=== PATIENT | female | born 1975 | race American Indian/Alaskan Native ===

== ENCOUNTER 2017-03-26 00:30 | Emergency (ER) | payer OTHER ==
[2017-03-26 02:12] LABS: BASO # 0.1 K/uL (0.0-0.2); BASO % 1.5 % (0.0-2.0); EOS # 0.1 K/uL (0.0-0.7); EOS % 1.9 % (0.0-4.0); HEMATOCRIT 37.1 % (34.0-47.0); LYMPH # 1.1 K/uL (1.0-4.3); LYMPH % 20.5 % (20.0-40.0); MEAN CELL VOLUME 89.9 fL (81.0-99.0); MEAN CORPUSCULAR HEMOGLOBIN 28.1 pg (27.0-31.0); MEAN CORPUSCULAR HGB CONC 31.2 g/dL (33.0-37.0); MEAN PLATELET VOLUME 10.2 fL (7.2-11.7); MONO # 0.7 K/uL (0.0-0.8); MONO % 12.6 % (0.0-10.0); NRBC % 0.2 % (0.0-2.0); RED CELL DISTRIBUTION WIDTH 17.8 % (11.5-14.5); WHITE BLOOD COUNT 5.4 K/uL (4.8-10.8)
[2017-03-26] MEDS ORDERED: Morphine 4 MG/ML VIAL IV ONE (02:23)
[2017-03-26 02:25] LABS: BILIRUBIN,TOTAL 3.2 mg/dL (0.2-1.3); CALCIUM 8.1 mg/dl (8.6-10.4); TOTAL PROTEIN 8.9 g/dL (6.3-8.3)
[2017-03-26 02:26] LABS: ALB/GLOB RATIO 0.7 (1.0-2.1)
[2017-03-26 02:27] LABS: POTASSIUM 4.8 mmol/L (3.6-5.2)
--- NOTE | 2017-03-26 04:42 | C.PDOC ---
History Of Present Illness 41 y/o female, PMHx including ESRD, presents to ED with complaints of several episodes of vomiting and abdominal discomfort since finishing dialysis earlier today. Patient denies fever, chills, chest pain, SOB, diarrhea, extremity swelling, or other associated symptoms. Time Seen by Provider: 03/26/17 01:35 Chief Complaint (Nursing): Abdominal Pain History Per: Patient History/Exam Limitations: no limitations Onset/Duration Of Symptoms: Days Current Symptoms Are (Timing): Still Present Severity: Mild Location Of Pain/Discomfort: Epigastric Radiation Of Pain To:: None Quality Of Discomfort: "Pain" Associated Symptoms: Nausea, Vomiting. denies: Fever, Chills, Diarrhea, Back Pain, Chest Pain, Urinary Symptoms Recent travel outside of the [place]: No Past Medical History Reviewed: Historical Data, Nursing Documentation, Vital Signs Vital Signs: Last Vital Signs Temp 98.2 F 03/26/17 04:39 Pulse 82 03/26/17 04:39 Resp 18 03/26/17 04:39 BP 116/71 03/26/17 04:39 Pulse Ox 97 03/26/17 04:43 - Medical History PMH: Diabetes (IDDM), HTN, Hypercholesterolemia, End Stage Renal Disease, Chronic Kidney Disease - [facility] Procedures ESOPHAGOGASTRODUODENOSCOPY [EGD] W/CLOSED BIOPSY (06/18/15) EXCISION OF STOMACH, ENDO, DIAGN (09/02/16) OTHER SKIN & SUBQ I D (08/07/15) PERFORMANCE OF URINARY FILTRATION, MULTIPLE (09/02/16) ULTRASONOGRAPHY OF LEFT UPPER EXTREMITY VEINS (09/02/16) Family History: States: Unknown Family Hx - Social History Hx Tobacco Use: No Hx Alcohol Use: No Hx Substance Use: No - Immunization History Hx Tetanus Toxoid Vaccination: No Hx Influenza Vaccination: No Hx Pneumococcal Vaccination: No Review Of Systems Except As Marked, All Systems Reviewed And Found Negative. Constitutional: Negative for: Fever, Chills Cardiovascular: Negative for: Chest Pain, Palpitations Respiratory: Negative for: Cough, Shortness of Breath, Wheezing Gastrointestinal: Positive for: Nausea, Vomiting, Abdominal Pain. Negative for : Diarrhea Skin: Negative for: Rash Neurological: Negative for: Headache, Dizziness Physical Exam - Physical Exam Appears: Non-toxic, No Acute Distress Skin: Warm, Dry Head: Atraumatic, Normacephalic Oral Mucosa: Moist Chest: Symmetrical Cardiovascular: Rhythm Regular Respiratory: Normal Breath Sounds, No Rales, No Rhonchi, No Wheezing Gastrointestinal/Abdominal: Soft, Tenderness (minimal, epigastric), No Distention, No Guarding, No Rebound Back: Normal Inspection Extremity: Normal ROM, Capillary Refill (< 2 sec.) Neurological/Psych: Oriented x3, Normal Speech, Normal Cognition ED Course And Treatment - Laboratory Results Result Diagrams: 03/26/17 02:08 03/26/17 02:08 O2 Sat by Pulse Oximetry: 97 (RA) Pulse Ox Interpretation: Normal Progress Note: Patient received Zofran ODT at triage. Patient notes she still feel nauseous. Patient presents hypertensive, states she was unable to keep her BP medications down. Given IV Zofran, Pepcid, and morphine. After attempting to take fluids, she states that she is still nauseous. Reglan IV given. Patient declines to take blood pressure medication in the ER, stating she will resume her BP med dose at home. 6 AM- Pt is in NAD, VSS, BP has improved, tolerated PO in ED, Abdomen is soft NT Disposition - Disposition Referrals: Rafita Martinez DO [Primary Care Provider] - Disposition: HOME/ ROUTINE Disposition Time: 05:31 Condition: STABLE Additional Instructions: Clear liquid diet Follow up with PMD Return to ER if worse Prescriptions: Ondansetron ODT [Zofran ODT] 1 - 2 odt PO BID PRN #6 odt PRN Reason: Nausea/Vomiting - Clinical Impression Clinical Impression: Vomiting, ESRD (end stage renal disease) on dialysis, Gastritis - PA / PHYSICAL THERAPY TECHNICIAN / Resident Statement / has reviewed & agrees with the documentation as recorded. - Scribe Statement The provider has reviewed the documentation as recorded by the Tawanda Hooks Provider Scribe Attestation: All medical record entries made by the Tawanda were at my direction and personally dictated by me. I have reviewed the chart and agree that the record accurately reflects my personal performance of the history, physical exam, medical decision making, and the department course for this patient. I have also personally directed, reviewed, and agree with the discharge instructions and disposition.
[2017-03-26 05:54] VITALS: BP 164/96; PULSE 86; RESP 16; TEMP 97.8; O2SAT 99
== END 2017-03-26 05:54 | disposition home or self-care (01) ==
LOC: C.ER 00:30 → SUPCPDRO 00:30 → C.ER 05:54
DX: K29.70 Gastritis, unspecified, without bleeding (principal); R11.10 Vomiting, unspecified; I12.0 Hypertensive chronic kidney disease with stage 5 chronic kidney disease or end stage renal disease; N18.6 End stage renal disease; Z99.2 Dependence on renal dialysis
CPT/HCPCS: 80053; 85025; 96374; 96375; 99285; J2270; J2405; J2765

== ENCOUNTER 2017-12-18 12:20 | Inpatient (IN) | payer OTHER ==
--- NOTE | 2017-12-18 14:03 | C.PDOC ---
History Of Present Illness Maggi Anthony is a 42 year old female, with a past medical history of HTN, diabetes, and renal disease, who presents to the emergency department complaining of productive cough onset for 2-3 months and shortness of breath, and chest pain for a couple of days. Patient also reports increasing swelling on legs. Patient states the shortness of breath is worst with exertion, and the chest pain worsens with cough. Patient is currently on dialysis Saturday, Saturday, and Saturday. She was on dialysis this morning. She denies any recent sick contacts, fever, chills, palpitations, abdominal pain, nausea, vomit, diarrhea, constipation, urinary symptoms or calf pain. No further medical complaints. PMD: Rafita Martinez Seen by Provider: 12/18/17 13:28 Chief Complaint (Nursing): Shortness Of Breath History Per: Patient History/Exam Limitations: no limitations Onset/Duration Of Symptoms: Days (x2-3 months) Current Symptoms Are (Timing): Still Present Exacerbating Factor(s): Exertion Associated Symptoms: Chest Pain, Productive Cough, Ankle/Leg Swelling. denies: Fever, Chills, Leg/Calf Pain, Other (abdominal pain, nausea, vomiting, diarrhea. ) Past Medical History Reviewed: Historical Data, Nursing Documentation, Vital Signs Vital Signs: Last Vital Signs Temp 97.4 F L 12/18/17 12:33 Pulse 94 H 12/18/17 14:55 Resp 18 12/18/17 14:55 BP 176/115 H 12/18/17 14:55 Pulse Ox 100 12/18/17 14:55 - Medical History PMH: Diabetes (IDDM), HTN, Hypercholesterolemia, End Stage Renal Disease, Chronic Kidney Disease Denies: Hyperthyroidism Surgical History: Other Surgeries: Graft placement - [facility] Procedures ESOPHAGOGASTRODUODENOSCOPY [EGD] W/CLOSED BIOPSY (06/18/15) EXCISION OF STOMACH, ENDO, DIAGN (09/02/16) OTHER SKIN & SUBQ I D (08/07/15) PERFORMANCE OF URINARY FILTRATION, MULTIPLE (09/02/16) ULTRASONOGRAPHY OF LEFT UPPER EXTREMITY VEINS (09/02/16) Family History: States: Unknown Family Hx - Social History Hx Tobacco Use: No Hx Alcohol Use: No Hx Substance Use: No - Immunization History Hx Tetanus Toxoid Vaccination: No Hx Influenza Vaccination: No Hx Pneumococcal Vaccination: No Review Of Systems Constitutional: Negative for: Fever, Chills Cardiovascular: Positive for: Chest Pain. Negative for: Palpitations Respiratory: Positive for: Cough (productive), Shortness of Breath, Sputum (non bloody) Gastrointestinal: Negative for: Nausea, Vomiting, Abdominal Pain, Diarrhea, Constipation, Hematochezia Genitourinary: Negative for: Dysuria, Incontinence, Hematuria Musculoskeletal: Negative for: Leg Pain Skin: Positive for: Other (leg swelling) Physical Exam - Physical Exam Appears: Other (able to lay flat) Skin: Warm, Dry, No Rash Head: Atraumatic, Normacephalic Eye(s): bilateral: Normal Inspection, PERRL, EOMI Ear(s): Bilateral: Normal Nose: Normal Oral Mucosa: Moist Throat: Normal Neck: Normal ROM, Supple Cardiovascular: Rhythm Regular, No Murmur Respiratory: Decreased Breath Sounds (markedly diminished to most of right lung. ), No Rales, No Rhonchi, Wheezing (diffused expiratory ) Gastrointestinal/Abdominal: Normal Exam, Soft, No Tenderness, No Guarding, No Rebound Back: Normal Inspection, No CVA Tenderness, No Vertebral Tenderness Extremity: Normal ROM, No Pedal Edema, No Calf Tenderness, No Deformity, Swelling (mild to legs), Other (distal pulses normal) Neurological/Psych: Oriented x3 (alert) ED Course And Treatment - Laboratory Results Result Diagrams: 12/18/17 14:25 12/18/17 14:25 Lab Interpretation: Abnormal (glucose 543, K+ 3.7, BUN 22, Cr 3.7) ECG: Interpreted By Ca ECG Rhythm: Sinus Rhythm (with left posterior block) ECG Interpretation: No Acute Changes O2 Sat by Pulse Oximetry: 100 (RA) Pulse Ox Interpretation: Normal - Radiology CXR: Interpreted by Ca CXR Interpretation: Yes: Other (large right pleural effusion.) Reevaluation Time: 15:22 Reassessment Condition: Unchanged - Physician Consult Information Time Consulting Physician Contacted: 15:22 Physician Contacted: Bertha Walker Outcome Of Conversation: He will accept patient onto his service for Dr Martinez. Patient to have evaluation for large pleural effusion and shortness on breath. Medical Decision Making Medical Decision Making: Initial Impression: Initial Plan: --EKG --CMP --Magnesium --CBC w/ differential --Chest one view [RAD] --Influenza A B --reevaluation 14:22 Chest X-Ray FINDINGS: LUNGS: Pulmonary vascular congestion. PLEURA: Large right pleural effusion. No appreciable pneumothorax. CARDIOVASCULAR: Cardiomediastinal silhouette stably prominent. OSSEOUS STRUCTURES: No significant abnormalities. VISUALIZED UPPER ABDOMEN: Normal. OTHER FINDINGS: Right internal jugular access tunneled hemodialysis catheter no longer present. IMPRESSION: Pulmonary vascular congestion and large right pleural effusion. Disposition - Disposition Disposition: HOSPITALIZED Disposition Time: 15:23 Condition: FAIR - POA Present On Arrival: Poor Glycemic Control - Clinical Impression Clinical Impression: ESRD (end stage renal disease) on dialysis, Pleural effusion on right, Uncontrolled diabetes mellitus - Scribe Statement Kyle Wilkes Provider Attestation: All medical record entries made by the Scribe were at my direction and personally dictated by me. I have reviewed the chart and agree that the record accurately reflects my personal performance of the history, physical exam, medical decision making, and the department course for this patient. I have also personally directed, reviewed, and agree with the discharge instructions and disposition.
--- NOTE | 2017-12-18 14:24 | RAD ---
PROCEDURE: CHEST RADIOGRAPH, 1 VIEW HISTORY: SOB COMPARISON: Chest radiograph dated 09/02/2016. FINDINGS: LUNGS: Pulmonary vascular congestion. PLEURA: Large right pleural effusion. No appreciable pneumothorax. CARDIOVASCULAR: Cardiomediastinal silhouette stably prominent. OSSEOUS STRUCTURES: No significant abnormalities. VISUALIZED UPPER ABDOMEN: Normal. OTHER FINDINGS: Right internal jugular access tunneled hemodialysis catheter no longer present. IMPRESSION: Pulmonary vascular congestion and large right pleural effusion.
[2017-12-18 14:30] LABS: BASO # 0.1 K/uL (0.0-0.2); BASO % 1.2 % (0.0-2.0); EOS # 0.3 K/uL (0.0-0.7); EOS % 5.5 % (0.0-4.0); HEMOGLOBIN 12.5 g/dL (11.0-16.0); LYMPH # 1.2 K/uL (1.0-4.3); LYMPH % 20.6 % (20.0-40.0); MEAN CELL VOLUME 87.8 fL (81.0-99.0); MEAN CORPUSCULAR HEMOGLOBIN 28.9 pg (27.0-31.0); MEAN PLATELET VOLUME 10.7 fL (7.2-11.7); MONO # 0.4 K/uL (0.0-0.8); MONO % 6.8 % (0.0-10.0); NEUT # 3.7 K/uL (1.8-7.0); NEUT % 65.9 % (50.0-75.0); RBC 4.31 Mil/uL (3.80-5.20); RED CELL DISTRIBUTION WIDTH 15.1 % (11.5-14.5); WHITE BLOOD COUNT 5.6 K/uL (4.8-10.8)
[2017-12-18] MEDS ORDERED: (Novolin R) Insulin Human Regular 100 units/ml vial IV ONE (14:49)
[2017-12-18] MEDS ORDERED: (Novolin R) Insulin Human Regular 100 units/ml vial ONE ×2 (14:53→21:02)
[2017-12-18 14:56] LABS: ALB/GLOB RATIO 0.7 (1.0-2.1); MAGNESIUM 1.9 mg/dL (1.6-2.3)
[2017-12-18] MEDS ORDERED: CHLORZOXAZONE 750 MG PO PRN ×2 (20:08→23:37)
[2017-12-18] MEDS: Oxycodone/Acetaminophen 5/325 mg Tab PO PRN (20:25)
[2017-12-18] MEDS ORDERED: Oxycodone/Acetaminophen 5/325 mg Tab ONE (20:26)
[2017-12-18] MEDS: (Novolog) Insulin Aspart, Recombinant 100 u/ml 10 ml vial SC SCH (21:01)
[2017-12-18] MEDS ORDERED: FORMOTEROL IH SCH (22:00)
[2017-12-18] MEDS ORDERED: ARO IH SCH (22:00)
[2017-12-18] MEDS ORDERED: MOMETASONE IH SCH (22:00)
[2017-12-19] MEDS ORDERED: (Novolog) Insulin Aspart, Recombinant 100 u/ml 10 ml vial SC ONE (00:46)
[2017-12-19] MEDS ORDERED: (Novolog) Insulin Aspart, Recombinant 100 u/ml 10 ml vial ONE (00:54)
[2017-12-19] MEDS: (Novolog) Insulin Aspart, Recombinant 100 u/ml 10 ml vial SC SCH ×4 (08:03→21:43)
[2017-12-19] MEDS ORDERED: TRAMADOL HCL 200 MG PO SCH ×2 (10:00)
[2017-12-19] MEDS ORDERED: MILNACIPRAN HCL 50 MG PO SCH ×2 (10:00)
[2017-12-19] MEDS ORDERED: VIT C PO SCH ×2 (10:00)
[2017-12-19] MEDS ORDERED: INSULIN GLARGINE HUM REC ANLOG 70 UNIT SQ SCH ×2 (10:00)
[2017-12-19] MEDS ORDERED: [UNRECOGNIZED DRUG - OTHER] PO SCH ×2 (10:00)
[2017-12-19] MEDS ORDERED: Home Med 1 UNIT (Atorvastatin [Lipitor] 40 MG) PO SCH (10:00)
[2017-12-19] MEDS ORDERED: Tiotropium 18 mcg Cap For Inhalation IH SCH (10:00)
[2017-12-19] MEDS ORDERED: Fluticasone Nasal 50 mcg/Spray NS SCH (10:00)
[2017-12-19] MEDS ORDERED: MOMETASONE IH SCH (10:00)
[2017-12-19] MEDS ORDERED: INSULIN GLULISINE 15 UNIT IJ SCH ×2 (10:00)
[2017-12-19] MEDS ORDERED: FORMOTEROL IH SCH (10:00)
[2017-12-19] MEDS ORDERED: IRON PO SCH ×2 (10:00)
[2017-12-19] MEDS ORDERED: D3 PO SCH ×2 (10:00)
[2017-12-19] MEDS ORDERED: B12 PO SCH ×2 (10:00)
[2017-12-19] MEDS ORDERED: Oxybutynin XL 10 mg Tab PO SCH (10:00)
[2017-12-19] MEDS ORDERED: OLOPATADINE HCL OP SCH ×2 (10:00)
[2017-12-19] MEDS ORDERED: [UNRECOGNIZED DRUG - OTHER] SQ SCH ×2 (10:00)
[2017-12-19] MEDS ORDERED: FOLATE PO SCH ×2 (10:00)
[2017-12-19] MEDS ORDERED: BECLOMETHASONE DIPROPIONATE 0.08 MG IH SCH ×2 (10:00)
[2017-12-19] MEDS ORDERED: RAMELTEON 8 MG PO SCH ×2 (10:00)
[2017-12-19] MEDS ORDERED: B6 PO SCH ×2 (10:00)
[2017-12-19] MEDS ORDERED: ARO IH SCH (10:00)
[2017-12-19] MEDS ORDERED: Clotrimazole/Betamethasone Cream(15 gm) EXT SCH (10:00)
[2017-12-19] MEDS: Pantoprazole 40 mg EC Tab PO SCH (10:35)
[2017-12-19 14:37] LABS: INR 1.2; PROTHROMBIN TIME 13.5 SECONDS (9.7-12.2)
--- NOTE | 2017-12-19 15:48 | PCM.SURG1 ---
Surgeon's Initial Post Op Note - Surgeon's Notes Surgeon: Cristiano Bradford MD Health Care Law Specialist: NONE Type of Anesthesia: Local Pre-Operative Diagnosis: Pleural effusion Operative Findings: US showed large right effusion Post-Operative Diagnosis: Pleural effusion Operation Performed: US guided right thoracentesis Specimen/Specimens Removed: 1200 cc of ayaan colored fluid Estimated Blood Loss: EBL {In ML}: 0 Blood Products Given: N/A Drains Used: No Drains Post-Op Condition: Fair Date of Surgery/Procedure: 12/19/17 Time of Surgery/Procedure: 15:45
--- NOTE | 2017-12-19 16:48 | RAD ---
HISTORY: Status post right thoracentesis. COMPARISON: 12/18/2017 FINDINGS: LUNGS: Right pleural effusion with inferred compressive atelectasis renoted height now mid right sho thorax. Trace decrease right pleural effusion possible. Underlying concomitant right basal infiltrate not excluded PLEURA: Moderate -large right pleural effusion slightly decreased. . No pneumothorax CARDIOVASCULAR: Cardiomegaly-similar. Pulmonary venous congestion probably slightly decreased OSSEOUS STRUCTURES: Bilateral shoulder arthrosis VISUALIZED UPPER ABDOMEN: Normal. OTHER FINDINGS: None. IMPRESSION: Persistent moderate -large right pleural effusion -slight decrease probable. Associated inferred compressive atelectasis -right lung base Cardiomegaly with pulmonary venous congestion -the latter slightly decreased
--- NOTE | 2017-12-19 18:19 | CP.PCM.HP ---
Past Patient History - Infectious Disease Hx of Infectious Diseases: None - Past Medical History & Family History Past Medical History?: Yes - Past Social History Smoking Status: Never Smoked - CARDIAC Hx Hypercholesterolemia: Yes Hx Hypertension: Yes - PULMONARY Hx Respiratory Disorders: No - NEUROLOGICAL HX Cerebrovascular Accident: Yes (01/2016) - HEENT Hx HEENT Problems: Yes Other/Comment: Wears Eyeglasses - RENAL Hx Chronic Kidney Disease: Yes Hx Dialysis: Yes Type of Dialysis Access: [email or web address] Date of Last Dialysis Treatment: 12/18/17 - ENDOCRINE/METABOLIC Hx Diabetes Mellitus Type 2: Yes - HEMATOLOGICAL/ONCOLOGICAL Hx Blood Disorders: No Hx Blood Transfusions: Yes Hx Blood Transfusion Reaction: No - INTEGUMENTARY Hx Dermatological Problems: No - MUSCULOSKELETAL/RHEUMATOLOGICAL Hx Musculoskeletal Disorders: No Hx Back Pain: Yes Hx Falls: Yes (3 months ago) - GASTROINTESTINAL Hx Gastrointestinal Disorders: No Hx Gastritis: Yes Hx Ulcer: Yes (gastric ulcer) Hx Vomiting: Yes Other/Comment: gastroporesis - GENITOURINARY/GYNECOLOGICAL Hx Genitourinary Disorders: No - PSYCHIATRIC Hx Psychophysiologic Disorder: No Hx Substance Use: No - SURGICAL HISTORY Hx Surgeries: Yes Hx Section: Yes Other/Comment: Insertion Of HD Cath on the R Internal Jugular; left forearm graft for dialysis. - ANESTHESIA Hx Anesthesia: Yes Hx Anesthesia Reactions: No Hx Malignant Hyperthermia: No Meds Allergies/Adverse Reactions: Allergies Allergy/AdvReac Type Severity Reaction Status Date / Time No Known Allergies Allergy Verified 12/18/17 12:40 Results - Vital Signs Recent Vital Signs: Last Vital Signs Temp 97.9 F 12/19/17 15:00 Pulse 102 H 12/19/17 15:26 Resp 20 12/19/17 15:00 BP 159/96 H 12/19/17 15:26 Pulse Ox 97 12/19/17 15:26 - Labs Result Diagrams: 12/18/17 14:25 12/18/17 14:25 Labs: Laboratory Results - last 24 hr 12/18/17 12/18/17 12/19/17 20:57 Unknown 00:41 PT INR POC Glucose (mg/dL) 416 H* 444 H* Influenza Typ A,B (EIA) Negative for flu a/b 12/19/17 12/19/17 12/19/17 02:25 07:18 07:20 PT INR POC Glucose (mg/dL) 291 H 56 L 61 L Influenza Typ A,B (EIA) 12/19/17 12/19/17 12/19/17 07:37 11:06 14:06 PT 13.5 H INR 1.2 POC Glucose (mg/dL) 72 254 H Influenza Typ A,B (EIA) 12/19/17 16:30 PT INR POC Glucose (mg/dL) 303 H Influenza Typ A,B (EIA)
--- NOTE | 2017-12-19 22:21 | CARD ---
APPROVED REPORT EKG Measurement Heart [id number] <Conclusion> Normal sinus rhythm with sinus arrhythmia Left posterior fascicular block Nonspecific ST and T wave abnormality Prolonged QT Abnormal ECG
[2017-12-19] MEDS: Oxycodone/Acetaminophen 5/325 mg Tab PO PRN (23:03)
[2017-12-20] MEDS ORDERED: Tiotropium 18 mcg Cap For Inhalation IH SCH (08:00)
[2017-12-20] MEDS: (Novolog) Insulin Aspart, Recombinant 100 u/ml 10 ml vial SC SCH ×4 (08:30→22:40)
[2017-12-20] MEDS: Fluticasone Nasal 50 mcg/Spray NS SCH (09:00)
[2017-12-20] MEDS: Pantoprazole 40 mg EC Tab PO SCH (09:55)
[2017-12-20] MEDS: Oxycodone/Acetaminophen 5/325 mg Tab PO PRN (10:00)
--- NOTE | 2017-12-20 14:30 | CP.PCM.CON ---
History of Present Illness - History of Present Illness History of Present Illness: Maggi Anthony is a 42 year old female, with a past medical history of HTN, diabetes, and renal disease, who presents to the emergency department complaining of productive cough onset for 2-3 months and shortness of breath, and chest pain for a couple of days. Patient also reports increasing swelling on legs. Patient states the shortness of breath is worst with exertion, and the chest pain worsens with cough. Patient is currently on dialysis Saturday, Saturday, and Saturday. She was on dialysis this morning. She denies any recent sick contacts, fever, chills, palpitations, abdominal pain, nausea, vomit, diarrhea, constipation, urinary symptoms or calf pain. No further medical complaints. s/p thoracentesis- 1200ml fluid removed PMH: ESRD DM2 DIABETIC NEPHROPATHY HTN CHF PSH- LEFT AV FISTULA Review of Systems - Review of Systems All systems: reviewed and no additional remarkable complaints except - Constitutional Constitutional: Fatigue, Lethargy - EENT Eyes: absent: As Per HPI, Blind Spots, Blurred Vision, Change in Vision, Decreased Night Vision, Diplopia, Discharge, Dry Eye, Exophthalmos, Floaters, Irritation, Itchy Eyes, Loss of Peripheral Vision, Pain, Photophobia, Requires Corrective Lenses, Sees Flashes, Spots in Vision, Tunnel Vision, Other Visual Disturbances, Loss of Vision, Other Ears: absent: As Per HPI, Decreased Hearing, Ear Discharge, Ear Pain, Tinnitus, Abnormal Hearing, Disequilibrium, Dizziness, Other Nose/Mouth/Throat: absent: As Per HPI, Epistaxis, Nasal Congestion, Nasal Discharge, Nasal Obstruction, Nasal Trauma, Nose Pain, Post Nasal Drip, Sinus Pain, Sinus Pressure, Bleeding Gums, Change in Voice, Dental Pain, Dry Mouth, Dysphagia, Halitosis, Hoarsness, Lip Swelling, Mouth Lesions, Mouth Pain, Odynophagia, Sore Throat, Throat Swelling, Tongue Swelling, Facial Pain, Neck Pain, Neck Mass, Other - Cardiovascular Cardiovascular: Chest Pain, Dyspnea on Exertion, Leg Edema - Respiratory Respiratory: Cough, Dyspnea - Gastrointestinal Gastrointestinal: Bloating, Early Satiety - Genitourinary Genitourinary: As Per HPI - Musculoskeletal Musculoskeletal: Muscle Cramps, Muscle Weakness, Myalgias - Neurological Neurological: Weakness Past Patient History - Infectious Disease Hx of Infectious Diseases: None - Past Medical History & Family History Past Medical History?: Yes Past Family History: Reviewed and not pertinent - Past Social History Smoking Status: Never Smoked Chewing Tobacco Use: No Cigar Use: No Alcohol: None Drugs: Denies Home Situation {Lives}: With Family - CARDIAC Hx Hypercholesterolemia: Yes Hx Hypertension: Yes - PULMONARY Hx Respiratory Disorders: No - NEUROLOGICAL HX Cerebrovascular Accident: Yes (01/2016) - HEENT Hx HEENT Problems: Yes Other/Comment: Wears Eyeglasses - RENAL Hx Chronic Kidney Disease: Yes Hx Dialysis: Yes Type of Dialysis Access: [email or web address] Date of Last Dialysis Treatment: 12/18/17 - ENDOCRINE/METABOLIC Hx Diabetes Mellitus Type 2: Yes - HEMATOLOGICAL/ONCOLOGICAL Hx Blood Disorders: No Hx Blood Transfusions: Yes Hx Blood Transfusion Reaction: No - INTEGUMENTARY Hx Dermatological Problems: No - MUSCULOSKELETAL/RHEUMATOLOGICAL Hx Musculoskeletal Disorders: No Hx Back Pain: Yes Hx Falls: Yes (3 months ago) - GASTROINTESTINAL Hx Gastrointestinal Disorders: No Hx Gastritis: Yes Hx Ulcer: Yes (gastric ulcer) Hx Vomiting: Yes Other/Comment: gastroporesis - GENITOURINARY/GYNECOLOGICAL Hx Genitourinary Disorders: No - PSYCHIATRIC Hx Psychophysiologic Disorder: No Hx Substance Use: No - SURGICAL HISTORY Hx Surgeries: Yes Hx Section: Yes Other/Comment: Insertion Of HD Cath on the R Internal Jugular; left forearm graft for dialysis. - ANESTHESIA Hx Anesthesia: Yes Hx Anesthesia Reactions: No Hx Malignant Hyperthermia: No Meds Allergies/Adverse Reactions: Allergies Allergy/AdvReac Type Severity Reaction Status Date / Time No Known Allergies Allergy Verified 12/18/17 12:40 - Medications Medications: Current Medications Amlodipine Besylate (Norvasc) 10 mg PO DAILY [facility] Last Admin: 12/20/17 09:55 Dose: 10 mg Benzonatate (Tessalon Perles) 100 mg PO TID PRN PRN Reason: Cough Clonidine HCl (Catapres) 0.1 mg PO TID [facility] Last Admin: 12/20/17 09:55 Dose: 0.1 mg Fluticasone Propionate (Flonase) 1 spr NS RQD [facility] Last Admin: 12/20/17 09:00 Dose: 1 spr Gabapentin (Neurontin) 600 mg PO DAILY [facility] [place] Last Admin: 12/20/17 09:55 Dose: 600 mg Heparin Sodium (Porcine) (Heparin) 5,000 units SC Q8 [facility] Last Admin: 12/20/17 06:17 Dose: 5,000 units Insulin Aspart (Novolog) 0 unit SC ACHS [facility] PRN Reason: Protocol Last Admin: 12/20/17 12:24 Dose: 5 unit Losartan Potassium (Cozaar) 100 mg PO DAILY [facility] Last Admin: 12/20/17 09:55 Dose: 100 mg Oxybutynin Chloride (Ditropan Xl) 5 mg PO DAILY [facility] Last Admin: 12/20/17 09:56 Dose: 5 mg Oxycodone/Acetaminophen (Percocet 5/325 Mg Tab) 1 tab PO Q8H PRN PRN Reason: Pain, moderate (4-7) Stop: 12/21/17 20:09 Last Admin: 12/20/17 10:00 Dose: 1 tab Pantoprazole Sodium (Protonix Ec Tab) 40 mg PO DAILY [facility] Last Admin: 12/20/17 09:55 Dose: 40 mg Pneumococcal Polyvalent Vaccine (Pneumovax 23 Vaccine) 0.5 ml IM .ONCE ONE Stop: 12/21/17 10:01 Rosuvastatin Calcium (Crestor) 20 mg PO HS [facility] Last Admin: 12/19/17 21:40 Dose: 20 mg Sitagliptin Phosphate (Januvia) 25 mg PO DAILY [facility] [place] Last Admin: 12/20/17 09:55 Dose: 25 mg Tiotropium [place] (Spiriva) 18 mcg IH RQD [facility] Physical Exam - Constitutional Appears: In Acute Distress, Chronically Ill - Head Exam Head Exam: ATRAUMATIC, NORMAL INSPECTION - Eye Exam Eye Exam: EOMI, Normal appearance - Neck Exam Neck exam: Positive for: Normal Inspection. Negative for: Tenderness - Respiratory Exam Respiratory Exam: Decreased Breath Sounds, Rales, Respiratory Distress - Cardiovascular Exam Cardiovascular Exam: REGULAR RHYTHM, +S1 - GI/Abdominal Exam GI & Abdominal Exam: Distended, Soft, Tenderness - Extremities Exam Extremities exam: Positive for: pedal edema, tenderness - Neurological Exam Neurological exam: CN II-XII Intact, Oriented x3 - Skin Skin Exam: Dry, Warm Results - Vital Signs Recent Vital Signs: Last Vital Signs Temp 97.4 F L 12/20/17 08:39 Pulse 90 12/20/17 08:39 Resp 20 12/20/17 08:39 BP 146/86 12/20/17 08:39 Pulse Ox 100 12/20/17 08:39 - Labs Result Diagrams: 12/18/17 14:25 12/18/17 14:25 Labs: Laboratory Results - last 24 hr 12/19/17 12/19/17 12/19/17 14:06 16:30 21:02 PT 13.5 H INR 1.2 POC Glucose (mg/dL) 303 H 314 H 12/20/17 07:42 PT INR POC Glucose (mg/dL) 399 H Assessment & Plan (1) CHF (congestive heart failure) Status: Acute (2) ESRD (end stage renal disease) on dialysis Status: Acute (3) Controlled type 2 diabetes mellitus with diabetic nephropathy Status: Acute (4) Diabetic nephropathy Status: Acute (5) Hypertension Status: Chronic - Assessment and Plan (Free Text) Plan: DIALYSIS NOW AND MWF NEEDS CHEMISTRIES
[2017-12-20 15:18] LABS: MEAN CELL VOLUME 87.6 fL (81.0-99.0); MEAN CORPUSCULAR HEMOGLOBIN 28.8 pg (27.0-31.0); MEAN CORPUSCULAR HGB CONC 32.8 g/dL (33.0-37.0); MEAN PLATELET VOLUME 10.2 fL (7.2-11.7); RBC 3.61 Mil/uL (3.80-5.20); RED CELL DISTRIBUTION WIDTH 15.4 % (11.5-14.5)
[2017-12-20 15:19] LABS: HEMOGLOBIN 10.4 g/dL (11.0-16.0)
[2017-12-20 15:32] LABS: ALB/GLOB RATIO 0.7 (1.0-2.1); ALBUMIN 3.3 g/dL (3.5-5.0); CALCIUM 8.2 mg/dl (8.6-10.4)
--- NOTE | 2017-12-20 15:32 | CP.PCM.PN ---
Subjective - Date & Time of Evaluation Date of Evaluation: 12/20/17 Time of Evaluation: 15:32 Objective - Vital Signs/Intake and Output Vital Signs (last 24 hours): Temp Pulse Resp BP Pulse Ox 97.4 F L 90 20 146/86 100 12/20/17 08:39 12/20/17 08:39 12/20/17 08:39 12/20/17 08:39 12/20/17 08:39 Intake and Output: 12/20/17 12/20/17 06:59 18:59 Intake Total 420 480 Output Total 1700 Balance -1280 480 - Medications Medications: Current Medications Amlodipine Besylate (Norvasc) 10 mg PO DAILY [facility] Last Admin: 12/20/17 09:55 Dose: 10 mg Benzonatate (Tessalon Perles) 100 mg PO TID PRN PRN Reason: Cough Clonidine HCl (Catapres) 0.1 mg PO TID [facility] Last Admin: 12/20/17 14:39 Dose: Not Given Fluticasone Propionate (Flonase) 1 spr NS RQD [facility] Last Admin: 12/20/17 09:00 Dose: 1 spr Gabapentin (Neurontin) 600 mg PO DAILY [facility] Last Admin: 12/20/17 09:55 Dose: 600 mg Heparin Sodium (Porcine) (Heparin) 5,000 units SC Q8 [facility] Last Admin: 12/20/17 14:38 Dose: 5,000 units Insulin Aspart (Novolog) 0 unit SC ACHS [facility] PRN Reason: Protocol Last Admin: 12/20/17 12:24 Dose: 5 unit Losartan Potassium (Cozaar) 100 mg PO DAILY [facility] Last Admin: 12/20/17 09:55 Dose: 100 mg Oxybutynin Chloride (Ditropan Xl) 5 mg PO DAILY [facility] Last Admin: 12/20/17 09:56 Dose: 5 mg Oxycodone/Acetaminophen (Percocet 5/325 Mg Tab) 1 tab PO Q8H PRN PRN Reason: Pain, moderate (4-7) Stop: 12/21/17 20:09 Last Admin: 12/20/17 10:00 Dose: 1 tab Pantoprazole Sodium (Protonix Ec Tab) 40 mg PO DAILY [facility] Last Admin: 12/20/17 09:55 Dose: 40 mg Pneumococcal Polyvalent Vaccine (Pneumovax 23 Vaccine) 0.5 ml IM .ONCE ONE Stop: 12/21/17 10:01 Rosuvastatin Calcium (Crestor) 20 mg PO HS [facility] Last Admin: 12/19/17 21:40 Dose: 20 mg Sitagliptin Phosphate (Januvia) 25 mg PO DAILY [facility] Last Admin: 12/20/17 09:55 Dose: 25 mg Tiotropium [place] (Spiriva) 18 mcg IH RQD [facility] - Labs Labs: 12/20/17 15:14 12/18/17 14:25 PT 13.5 SECONDS (9.7-12.2) H 12/19/17 14:06 INR 1.2 12/19/17 14:06
--- NOTE | 2017-12-20 16:03 | US ---
PROCEDURE: Date of procedure: 12/19/2017 Procedure: 1. Ultrasound-guided Right thoracentesis, CPT 81351 Medications: 6cc 1% Lidocaine HISTORY: Right pleural effusion, shortness of breath TECHNIQUE: Following informed consent ,the Patients' right chest was marked. Procedure time-out was called, and the patient was placed in the sitting position and limited ultrasound showed a large right effusion. The patient's right back was prepped and draped in the usual sterile fashion. After the skin was anesthetized with lidocaine, a drainage catheter was advanced under ultrasound guidance into the pleural space. Ultrasound-guided thoracentesis was performed. A total of 1200 cubic centimeters of ayaan-colored fluid removed without complication. A Xeroform dressing was applied. IMPRESSION: Ultrasound guided Right thoracentesis. There were no immediate complications.
[2017-12-21] MEDS: Oxycodone/Acetaminophen 5/325 mg Tab PO PRN (01:19)
[2017-12-21] MEDS: (Novolog) Insulin Aspart, Recombinant 100 u/ml 10 ml vial SC SCH ×4 (08:30→22:00)
[2017-12-21] MEDS: Fluticasone Nasal 50 mcg/Spray NS SCH (08:43)
[2017-12-21] MEDS ORDERED: Pneumococcal 23-Valent Vaccine IM ONE (10:00)
[2017-12-21] MEDS ORDERED: Influenza Vaccine 60 mcg/0.5 mL SYR (4YR UP) IM ONE (10:05)
[2017-12-21] MEDS: Pantoprazole 40 mg EC Tab PO SCH (10:13)
--- NOTE | 2017-12-21 10:17 | CP.PCM.PN ---
Subjective - Date & Time of Evaluation Date of Evaluation: 12/21/17 Time of Evaluation: 10:15 - Subjective Subjective: pt seen and examined in bed some SOB had HD yesterday- 3 L removed no cough afebrile ROS- as per HPI, other than that 10 point ROS negative Objective - Vital Signs/Intake and Output Vital Signs (last 24 hours): Temp Pulse Resp BP Pulse Ox 97.6 F 91 H 20 122/78 96 12/21/17 08:20 12/21/17 08:20 12/21/17 08:20 12/21/17 08:20 12/21/17 08:20 Intake and Output: 12/21/17 12/21/17 06:59 18:59 Intake Total 200 350 Balance 200 350 - Medications Medications: Current Medications Amlodipine Besylate (Norvasc) 10 mg PO DAILY [facility] Last Admin: 12/21/17 10:13 Dose: 10 mg Benzonatate (Tessalon Perles) 100 mg PO TID PRN PRN Reason: Cough Last Admin: 12/21/17 10:13 Dose: 100 mg Clonidine HCl (Catapres) 0.1 mg PO TID [facility] Last Admin: 12/21/17 10:13 Dose: 0.1 mg Fluticasone Propionate (Flonase) 1 spr NS RQD [facility] Last Admin: 12/21/17 08:43 Dose: 1 spr Gabapentin (Neurontin) 600 mg PO DAILY [facility] Last Admin: 12/21/17 10:13 Dose: 600 mg Heparin Sodium (Porcine) (Heparin) 5,000 units SC Q8 [facility] Last Admin: 12/21/17 05:31 Dose: Not Given Insulin Aspart (Novolog) 0 unit SC ACHS [facility] PRN Reason: Protocol Last Admin: 12/21/17 08:30 Dose: 3 unit Losartan Potassium (Cozaar) 100 mg PO DAILY [facility] Last Admin: 12/21/17 10:13 Dose: 100 mg Oxybutynin Chloride (Ditropan Xl) 5 mg PO DAILY [facility] Last Admin: 12/21/17 10:13 Dose: 5 mg Oxycodone/Acetaminophen (Percocet 5/325 Mg Tab) 1 tab PO Q8H PRN PRN Reason: Pain, moderate (4-7) Stop: 12/21/17 20:09 Last Admin: 12/21/17 01:19 Dose: 1 tab Pantoprazole Sodium (Protonix Ec Tab) 40 mg PO DAILY [facility] Last Admin: 12/21/17 10:13 Dose: 40 mg Rosuvastatin Calcium (Crestor) 20 mg PO HS [facility] Last Admin: 12/20/17 21:35 Dose: 20 mg Sitagliptin Phosphate (Januvia) 25 mg PO DAILY [facility] Last Admin: 12/21/17 10:13 Dose: 25 mg Tiotropium [place] (Spiriva) 18 mcg IH RQD [facility] - Labs Labs: 12/20/17 15:14 12/20/17 15:14 PT 13.5 SECONDS (9.7-12.2) H 12/19/17 14:06 INR 1.2 12/19/17 14:06 - Constitutional Appears: Well, Non-toxic - Head Exam Head Exam: ATRAUMATIC, NORMOCEPHALIC - Eye Exam Eye Exam: EOMI, PERRL - ENT Exam ENT Exam: Mucous Membranes Moist - Neck Exam Neck Exam: Full ROM - Respiratory Exam Respiratory Exam: Clear to Ausculation Bilateral, Rhonchi. absent: Wheezes - Cardiovascular Exam Cardiovascular Exam: REGULAR RHYTHM, +S1, +S2 - GI/Abdominal Exam GI & Abdominal Exam: Soft. absent: Tenderness - Extremities Exam Extremities Exam: Full ROM, Pedal Edema - Neurological Exam Neurological Exam: Alert, Awake, Oriented x3 - Psychiatric Exam Psychiatric exam: Normal Affect, Normal Mood - Skin Skin Exam: Dry, Warm Assessment and Plan (1) CHF (congestive heart failure) Status: Acute (2) ESRD (end stage renal disease) on dialysis Status: Acute (3) Anemia Status: Acute (4) Diabetic nephropathy Status: Acute (5) Hypertension Status: Chronic - Assessment and Plan (Free Text) Assessment: HD again today for volume overload fluid restriction
--- NOTE | 2017-12-21 17:37 | CP.PCM.PN ---
Subjective - Date & Time of Evaluation Date of Evaluation: 12/21/17 Time of Evaluation: 17:37 Objective - Vital Signs/Intake and Output Vital Signs (last 24 hours): Temp Pulse Resp BP Pulse Ox 97.9 F 94 H 20 152/84 H 97 12/21/17 16:00 12/21/17 16:00 12/21/17 16:00 12/21/17 16:00 12/21/17 16:00 Intake and Output: 12/21/17 12/21/17 06:59 18:59 Intake Total 200 830 Balance 200 830 - Medications Medications: Current Medications Amlodipine Besylate (Norvasc) 10 mg PO DAILY [facility] Last Admin: 12/21/17 10:13 Dose: 10 mg Benzonatate (Tessalon Perles) 100 mg PO TID PRN PRN Reason: Cough Last Admin: 12/21/17 10:13 Dose: 100 mg Clonidine HCl (Catapres) 0.1 mg PO TID [facility] Last Admin: 12/21/17 13:37 Dose: 0.1 mg Fluticasone Propionate (Flonase) 1 spr NS RQD [facility] Last Admin: 12/21/17 08:43 Dose: 1 spr Gabapentin (Neurontin) 600 mg PO DAILY [facility] Last Admin: 12/21/17 10:13 Dose: 600 mg Heparin Sodium (Porcine) (Heparin) 5,000 units SC Q8 [facility] Last Admin: 12/21/17 13:36 Dose: 5,000 units Insulin Aspart (Novolog) 0 unit SC ACHS [facility] PRN Reason: Protocol Last Admin: 12/21/17 12:21 Dose: Not Given Losartan Potassium (Cozaar) 100 mg PO DAILY [facility] Last Admin: 12/21/17 10:13 Dose: 100 mg Oxybutynin Chloride (Ditropan Xl) 5 mg PO DAILY [facility] Last Admin: 12/21/17 10:13 Dose: 5 mg Oxycodone/Acetaminophen (Percocet 5/325 Mg Tab) 1 tab PO Q8H PRN PRN Reason: Pain, moderate (4-7) Stop: 12/21/17 20:09 Last Admin: 12/21/17 01:19 Dose: 1 tab Pantoprazole Sodium (Protonix Ec Tab) 40 mg PO DAILY [facility] Last Admin: 12/21/17 10:13 Dose: 40 mg Rosuvastatin Calcium (Crestor) 20 mg PO HS [facility] Last Admin: 12/20/17 21:35 Dose: 20 mg Sitagliptin Phosphate (Januvia) 25 mg PO DAILY [facility] Last Admin: 12/21/17 10:13 Dose: 25 mg Tiotropium [place] (Spiriva) 18 mcg IH RQD [facility] - Labs Labs: 12/20/17 15:14 12/20/17 15:14 PT 13.5 SECONDS (9.7-12.2) H 12/19/17 14:06 INR 1.2 12/19/17 14:06
[2017-12-22] MEDS ORDERED: Oxycodone/Acetaminophen 5/325 mg Tab PO ONE (01:37)
[2017-12-22] MEDS: (Novolog) Insulin Aspart, Recombinant 100 u/ml 10 ml vial SC SCH ×3 (08:30→17:11)
[2017-12-22] MEDS: Fluticasone Nasal 50 mcg/Spray NS SCH (09:00)
[2017-12-22] MEDS: Pantoprazole 40 mg EC Tab PO SCH (09:25)
[2017-12-22] MEDS ORDERED: (Novolog) Insulin Aspart, Recombinant 100 u/ml 10 ml vial SC ONE (12:15)
[2017-12-22] MEDS: Oxycodone/Acetaminophen 5/325 mg Tab PO PRN ×2 (13:53→23:07)
--- NOTE | 2017-12-22 14:15 | CP.PCM.PN ---
Subjective - Date & Time of Evaluation Date of Evaluation: 12/22/17 Time of Evaluation: 14:15 Objective - Vital Signs/Intake and Output Vital Signs (last 24 hours): Temp Pulse Resp BP Pulse Ox 98 F 90 20 130/78 96 12/22/17 07:34 12/22/17 07:34 12/22/17 07:34 12/22/17 07:34 12/22/17 07:34 Intake and Output: 12/22/17 12/22/17 06:59 18:59 Intake Total 540 Balance 540 - Medications Medications: Current Medications Amlodipine Besylate (Norvasc) 10 mg PO DAILY [facility] Last Admin: 12/22/17 09:26 Dose: 10 mg Benzonatate (Tessalon Perles) 100 mg PO TID PRN PRN Reason: Cough Last Admin: 12/22/17 09:26 Dose: 100 mg Clonidine HCl (Catapres) 0.1 mg PO TID [facility] Last Admin: 12/22/17 13:53 Dose: 0.1 mg Fluticasone Propionate (Flonase) 1 spr NS RQD [facility] Last Admin: 12/22/17 09:00 Dose: 1 spr Gabapentin (Neurontin) 600 mg PO DAILY [facility] Last Admin: 12/22/17 09:26 Dose: 600 mg Heparin Sodium (Porcine) (Heparin) 5,000 units SC Q8 [facility] Last Admin: 12/22/17 13:54 Dose: 5,000 units Insulin Aspart (Novolog) 0 unit SC ACHS [facility] PRN Reason: Protocol Last Admin: 12/22/17 12:07 Dose: Not Given Losartan Potassium (Cozaar) 100 mg PO DAILY [facility] Last Admin: 12/22/17 09:25 Dose: 100 mg Oxybutynin Chloride (Ditropan Xl) 5 mg PO DAILY [facility] Last Admin: 12/22/17 09:25 Dose: 5 mg Oxycodone/Acetaminophen (Percocet 5/325 Mg Tab) 1 tab PO Q8H PRN PRN Reason: Pain, moderate (4-7) Stop: 12/25/17 13:46 Last Admin: 12/22/17 13:53 Dose: 1 tab Pantoprazole Sodium (Protonix Ec Tab) 40 mg PO DAILY [facility] Last Admin: 12/22/17 09:25 Dose: 40 mg Rosuvastatin Calcium (Crestor) 20 mg PO HS [facility] Last Admin: 12/21/17 21:23 Dose: 20 mg Sitagliptin Phosphate (Januvia) 25 mg PO DAILY [facility] Last Admin: 12/22/17 09:26 Dose: 25 mg Tiotropium [place] (Spiriva) 18 mcg IH RQD [facility] - Labs Labs: 12/20/17 15:14 12/20/17 15:14 PT 13.5 SECONDS (9.7-12.2) H 12/19/17 14:06 INR 1.2 12/19/17 14:06
--- NOTE | 2017-12-22 16:55 | CP.PCM.PN ---
Subjective - Date & Time of Evaluation Date of Evaluation: 12/22/17 Time of Evaluation: 03:00 - Subjective Subjective: uncontrolled DM Objective - Vital Signs/Intake and Output Vital Signs (last 24 hours): Temp Pulse Resp BP Pulse Ox 97.6 F 95 H 20 125/81 100 12/22/17 15:00 12/22/17 15:00 12/22/17 15:00 12/22/17 15:00 12/22/17 15:00 Intake and Output: 12/22/17 12/22/17 06:59 18:59 Intake Total 540 480 Balance 540 480 - Medications Medications: Current Medications Amlodipine Besylate (Norvasc) 10 mg PO DAILY [facility] Last Admin: 12/22/17 09:26 Dose: 10 mg Benzonatate (Tessalon Perles) 100 mg PO TID PRN PRN Reason: Cough Last Admin: 12/22/17 09:26 Dose: 100 mg Clonidine HCl (Catapres) 0.1 mg PO TID [facility] Last Admin: 12/22/17 13:53 Dose: 0.1 mg Fluticasone Propionate (Flonase) 1 spr NS RQD [facility] Last Admin: 12/22/17 09:00 Dose: 1 spr Gabapentin (Neurontin) 600 mg PO DAILY [facility] Last Admin: 12/22/17 09:26 Dose: 600 mg Heparin Sodium (Porcine) (Heparin) 5,000 units SC Q8 [facility] Last Admin: 12/22/17 13:54 Dose: 5,000 units Insulin Aspart (Novolog) 0 unit SC ACHS [facility] PRN Reason: Protocol Last Admin: 12/22/17 12:07 Dose: Not Given Losartan Potassium (Cozaar) 100 mg PO DAILY [facility] Last Admin: 12/22/17 09:25 Dose: 100 mg Oxybutynin Chloride (Ditropan Xl) 5 mg PO DAILY [facility] Last Admin: 12/22/17 09:25 Dose: 5 mg Oxycodone/Acetaminophen (Percocet 5/325 Mg Tab) 1 tab PO Q8H PRN PRN Reason: Pain, moderate (4-7) Stop: 12/25/17 13:46 Last Admin: 12/22/17 13:53 Dose: 1 tab Pantoprazole Sodium (Protonix Ec Tab) 40 mg PO DAILY [facility] Last Admin: 12/22/17 09:25 Dose: 40 mg Rosuvastatin Calcium (Crestor) 20 mg PO HS [facility] Last Admin: 12/21/17 21:23 Dose: 20 mg Sitagliptin Phosphate (Januvia) 25 mg PO DAILY [facility] Last Admin: 12/22/17 09:26 Dose: 25 mg Tiotropium [place] (Spiriva) 18 mcg IH RQD [facility] - Labs Labs: 12/20/17 15:14 12/20/17 15:14 PT 13.5 SECONDS (9.7-12.2) H 12/19/17 14:06 INR 1.2 12/19/17 14:06 Assessment and Plan (1) 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 Anthony is 42 y/o admitted for SOB,couugh , chest pain found with pleural effusion s/p thoracocentesis as per pt. has DM type 1 @ age of 20 (+) neuropathy , (+) retinopathy , (+) ESRD on HD (-) CAD (+) PVD s/p CVA outpatient diabetes management regimen : toujeo 30 units qd & humalin R 15 units with dinner inpatient diabetes management regimen: januvia 25 mg qd , novolog low dose coverage blood glucose log : 200-300 today > 500 s/p 14 units Novolog , last 267 12/19/2017 episodes of 56, 61, 72 also with multinodular goiter s/p FNA years ago , benign , not on thyroid meds , denies personal/fhx of thyroid cancer , denies h/o neck irradiation Allergy NKDA Past medical history: HTN , CHF , CVA Past surgical history: CS , Left forarm graft shunt Psychiatry history: denies Social history : denies smoking , ETOH use or illicit drug use Family history : irrelevant ROS: Constitutional: denies fever, tiredness/weakness. HEENT: denies earache, change in voice .Respiratory: denies cough, (+) sob . CVS :no chest pain, no palpitations . Abdomen: no abdominal pain, no nausea /vomiting, no change bowel movement. HIGH RISK OB : denies light-headedness, dizziness. Extremities: no edema, no tremors. Skin: no itching, no rash LMP 2014 Physical exam Well-developed AAO x3 , ,NAD on oxygen via NC VSS HEENT: norm cephalic, atraumatic, no lid lag , no exophthalmos NECK: supple, no palpable lymphadenopathy THYROID: (+) thyromegaly, not tender CHEST: fair air entry, bilateral, CVS: S1,S2 ABDOMEN: bowel sound present, benign, obese, no wide purple striae , no bruises EXTREMITIES: (+) pitting edema, clubbing or cyanosis, no palpable hand tremors Skin: acanthosis nigricans lab: 2016 a1c 9.7 Assessment sever symptomatic hypoglycemia uncontrolled type 1 DM with retinopathy & neuropathy ESRD on HD multinodular goiter CHF /pleural effusion plan start Levemir 10 units @ 8pm stop Novolog start Novoloin R low dose coverage, no 3 am coverage start novoloin R 3 units tid with meals if eat > 60% obtain a1c & TSH thyroid us when satble Thank you for allowing me to participate in the care of the patient, we will follow with you. Status: Acute (2) ESRD (end stage renal disease) on dialysis Status: Acute (3) Diabetes mellitus with ESRD (end-stage renal disease) Status: Acute (4) Goiter Status: Acute (5) Pleural effusion on right Status: Acute
[2017-12-22] MEDS: (Novolin R) Insulin Human Regular 100 units/ml vial SC SCH ×2 (18:30→21:57)
[2017-12-22] MEDS ORDERED: (Lantus) Insulin Glargine, Recombinant SC SCH (22:00)
[2017-12-23 07:37] LABS: BASO # 0.1 K/uL (0.0-0.2); BASO % 0.7 % (0.0-2.0); EOS # 0.2 K/uL (0.0-0.7); EOS % 2.6 % (0.0-4.0); HEMOGLOBIN 10.2 g/dL (11.0-16.0); MEAN PLATELET VOLUME 10.9 fL (7.2-11.7); MONO % 13.4 % (0.0-10.0); NEUT # 5.2 K/uL (1.8-7.0); NEUT % 69.3 % (50.0-75.0); RBC 3.53 Mil/uL (3.80-5.20); RED CELL DISTRIBUTION WIDTH 15.6 % (11.5-14.5); WHITE BLOOD COUNT 7.5 K/uL (4.8-10.8)
[2017-12-23 07:43] LABS: ALB/GLOB RATIO 0.7 (1.0-2.1); ALBUMIN 3.5 g/dL (3.5-5.0); CALCIUM 8.6 mg/dl (8.6-10.4); MAGNESIUM 1.8 mg/dL (1.6-2.3)
[2017-12-23] MEDS: (Novolin R) Insulin Human Regular 100 units/ml vial SC SCH ×7 (08:52→22:11)
--- NOTE | 2017-12-23 09:08 | RAD ---
HISTORY: pleural effusion COMPARISON: 12/19/2017 TECHNIQUE: PA and lateral chest radiographs FINDINGS: LUNGS: Opacity at right base due to right pleural effusion as well as possible right middle lobe consolidation. Silhouetting of right heart border suggests middle lobe consolidation. This is similar in appearance to the prior examination of 12/19/2017. No left-sided consolidation or pleural effusion. No pneumothorax. PLEURA: Right pleural effusion. No left pleural effusion. No pneumothorax. CARDIOVASCULAR: Cardiomegaly. No congestive change. OSSEOUS STRUCTURES: No significant abnormalities. VISUALIZED UPPER ABDOMEN: Normal. OTHER FINDINGS: None. IMPRESSION: Right pleural effusion. Probable right middle lobe consolidation. No significant change from 12/19/2017. Mild cardiomegaly. No congestive change.
[2017-12-23] MEDS: Pantoprazole 40 mg EC Tab PO SCH (10:50)
[2017-12-23] MEDS: Fluticasone Nasal 50 mcg/Spray NS SCH (10:51)
[2017-12-23] MEDS: (Lantus) Insulin Glargine, Recombinant SC SCH (10:53)
--- NOTE | 2017-12-23 11:52 | CP.PCM.PN ---
Subjective - Date & Time of Evaluation Date of Evaluation: 12/23/17 Time of Evaluation: 11:50 - Subjective Subjective: still c/o dry cough, dyspnea CXR with CHF and RML infiltrate had extra dialysis 2/3 Objective - Vital Signs/Intake and Output Vital Signs (last 24 hours): Temp Pulse Resp BP Pulse Ox 98.8 F 98 H 20 121/72 96 12/23/17 08:26 12/23/17 08:26 12/23/17 08:26 12/23/17 08:26 12/23/17 08:26 Intake and Output: 12/23/17 12/23/17 06:59 18:59 Intake Total 690 Balance 690 - Medications Medications: Current Medications Amlodipine Besylate (Norvasc) 10 mg PO DAILY [facility] Last Admin: 12/23/17 10:54 Dose: Not Given Benzonatate (Tessalon Perles) 100 mg PO TID PRN PRN Reason: Cough Last Admin: 12/23/17 10:50 Dose: 100 mg Clonidine HCl (Catapres) 0.1 mg PO TID [facility] Last Admin: 12/23/17 10:51 Dose: Not Given Fluticasone Propionate (Flonase) 1 spr NS RQD [facility] Last Admin: 12/23/17 10:51 Dose: 1 spr Gabapentin (Neurontin) 600 mg PO DAILY [facility] Last Admin: 12/23/17 10:51 Dose: 600 mg Heparin Sodium (Porcine) (Heparin) 5,000 units SC Q8 [facility] Last Admin: 12/23/17 05:08 Dose: 5,000 units Insulin Glargine (Lantus) 10 unit SC PCB [facility] Last Admin: 12/23/17 10:53 Dose: 10 units Insulin Human Regular (Novolin R) 0 unit SC ACHS [facility] PRN Reason: Protocol Last Admin: 12/23/17 08:52 Dose: 2 unit Insulin Human Regular (Novolin R) 3 unit SC TIDPC [facility] Last Admin: 12/23/17 08:54 Dose: 3 unit Losartan Potassium (Cozaar) 100 mg PO DAILY [facility] Last Admin: 12/23/17 10:51 Dose: Not Given Oxybutynin Chloride (Ditropan Xl) 5 mg PO DAILY [facility] Last Admin: 12/23/17 10:51 Dose: 5 mg Oxycodone/Acetaminophen (Percocet 5/325 Mg Tab) 1 tab PO Q8H PRN PRN Reason: Pain, moderate (4-7) Stop: 12/25/17 13:46 Last Admin: 12/22/17 23:07 Dose: 1 tab Pantoprazole Sodium (Protonix Ec Tab) 40 mg PO DAILY [facility] Last Admin: 12/23/17 10:50 Dose: 40 mg Rosuvastatin Calcium (Crestor) 10 mg PO HS [facility] Tiotropium [place] (Spiriva) 18 mcg IH RQD [facility] - Labs Labs: 12/23/17 06:54 12/23/17 06:54 PT 13.5 SECONDS (9.7-12.2) H 12/19/17 14:06 INR 1.2 12/19/17 14:06 - Constitutional Appears: No Acute Distress, Chronically Ill - Head Exam Head Exam: ATRAUMATIC, NORMAL INSPECTION - Eye Exam Eye Exam: EOMI, Normal appearance - Neck Exam Neck Exam: Normal Inspection. absent: Lymphadenopathy, Tenderness - Respiratory Exam Respiratory Exam: Rhonchi, NORMAL BREATHING PATTERN - Cardiovascular Exam Cardiovascular Exam: REGULAR RHYTHM, +S1 - GI/Abdominal Exam GI & Abdominal Exam: Soft. absent: Tenderness - Extremities Exam Extremities Exam: Normal Inspection. absent: Tenderness - Neurological Exam Neurological Exam: Alert, CN II-XII Intact - Skin Skin Exam: Dry, Warm Assessment and Plan (1) CHF (congestive heart failure) Status: Acute (2) ESRD (end stage renal disease) on dialysis Status: Acute (3) Controlled type 2 diabetes mellitus with diabetic nephropathy Status: Acute (4) Diabetic nephropathy Status: Acute (5) Hypertension Status: Chronic - Assessment and Plan (Free Text) Plan: Add zithromax increase UF with HD
[2017-12-23] MEDS: Oxycodone/Acetaminophen 5/325 mg Tab PO PRN (13:42)
[2017-12-23] MEDS: Azithromycin 500 MG in Sodium Chloride 0.9% 250 ML IVPB SCH (14:55)
--- NOTE | 2017-12-23 20:55 | CP.PCM.PN ---
Subjective - Date & Time of Evaluation Date of Evaluation: 12/23/17 Time of Evaluation: 20:55 Objective - Vital Signs/Intake and Output Vital Signs (last 24 hours): Temp Pulse Resp BP Pulse Ox 99.3 F 95 H 17 120/74 98 12/23/17 18:00 12/23/17 20:00 12/23/17 20:00 12/23/17 20:00 12/23/17 20:00 Intake and Output: 12/23/17 12/24/17 18:59 06:59 Intake Total 490 Balance 490 - Medications Medications: Current Medications Amlodipine Besylate (Norvasc) 10 mg PO DAILY [facility] Last Admin: 12/23/17 10:54 Dose: Not Given Benzonatate (Tessalon Perles) 100 mg PO TID PRN PRN Reason: Cough Last Admin: 12/23/17 10:50 Dose: 100 mg Clonidine HCl (Catapres) 0.1 mg PO TID [facility] Last Admin: 12/23/17 18:42 Dose: Not Given Fluticasone Propionate (Flonase) 1 spr NS RQD [facility] Last Admin: 12/23/17 10:51 Dose: 1 spr Gabapentin (Neurontin) 600 mg PO DAILY [facility] Last Admin: 12/23/17 10:51 Dose: 600 mg Heparin Sodium (Porcine) (Heparin) 5,000 units SC Q8 [facility] Last Admin: 12/23/17 14:55 Dose: 5,000 units Azithromycin 500 mg/ Sodium (Chloride) 250 mls @ 250 mls/hr IVPB DAILY [facility] Last Admin: 12/23/17 14:55 Dose: 250 mls/hr Insulin Glargine (Lantus) 10 unit SC PCB [facility] Last Admin: 12/23/17 10:53 Dose: 10 units Insulin Human Regular (Novolin R) 0 unit SC ACHS [facility] PRN Reason: Protocol Last Admin: 12/23/17 16:50 Dose: 2 unit Insulin Human Regular (Novolin R) 3 unit SC TIDPC [facility] Last Admin: 12/23/17 18:55 Dose: Not Given Losartan Potassium (Cozaar) 100 mg PO DAILY [facility] Last Admin: 12/23/17 10:51 Dose: Not Given Oxybutynin Chloride (Ditropan Xl) 5 mg PO DAILY [facility] Last Admin: 12/23/17 10:51 Dose: 5 mg Oxycodone/Acetaminophen (Percocet 5/325 Mg Tab) 1 tab PO Q8H PRN PRN Reason: Pain, moderate (4-7) Stop: 12/25/17 13:46 Last Admin: 12/23/17 13:42 Dose: 1 tab Pantoprazole Sodium (Protonix Ec Tab) 40 mg PO DAILY [facility] Last Admin: 12/23/17 10:50 Dose: 40 mg Rosuvastatin Calcium (Crestor) 10 mg PO HS [facility] Tiotropium [place] (Spiriva) 18 mcg IH RQD [facility] - Labs Labs: 12/23/17 06:54 12/23/17 06:54 PT 13.5 SECONDS (9.7-12.2) H 12/19/17 14:06 INR 1.2 12/19/17 14:06
[2017-12-24] MEDS: (Novolin R) Insulin Human Regular 100 units/ml vial SC SCH ×7 (08:01→21:20)
[2017-12-24] MEDS: Fluticasone Nasal 50 mcg/Spray NS SCH (08:05)
[2017-12-24] MEDS: Pantoprazole 40 mg EC Tab PO SCH (09:26)
[2017-12-24] MEDS: Azithromycin 500 MG in Sodium Chloride 0.9% 250 ML IVPB SCH (09:27)
[2017-12-24] MEDS: (Lantus) Insulin Glargine, Recombinant SC SCH (09:35)
[2017-12-24] MEDS: Oxycodone/Acetaminophen 5/325 mg Tab PO PRN (10:40)
--- NOTE | 2017-12-24 11:30 | CP.PCM.PN ---
Subjective - Date & Time of Evaluation Date of Evaluation: 12/24/17 Time of Evaluation: 11:29 - Subjective Subjective: seen and examiend c/o cough. improved breathing 10 point ROS obtained:negative except above Objective - Vital Signs/Intake and Output Vital Signs (last 24 hours): Temp Pulse Resp BP Pulse Ox 99.0 F 110 H 20 150/92 H 96 12/24/17 02:44 12/24/17 00:00 12/24/17 00:00 12/24/17 00:00 12/24/17 00:00 Intake and Output: 12/24/17 12/24/17 06:59 18:59 Intake Total 200 240 Balance 200 240 - Medications Medications: Current Medications Amlodipine Besylate (Norvasc) 10 mg PO DAILY [facility] Last Admin: 12/24/17 09:26 Dose: 10 mg Benzonatate (Tessalon Perles) 100 mg PO TID PRN PRN Reason: Cough Last Admin: 12/23/17 10:50 Dose: 100 mg Clonidine HCl (Catapres) 0.1 mg PO TID [facility] Last Admin: 12/24/17 09:26 Dose: 0.1 mg Fluticasone Propionate (Flonase) 1 spr NS RQD [facility] Last Admin: 12/24/17 08:05 Dose: 1 spr Gabapentin (Neurontin) 600 mg PO DAILY [facility] Last Admin: 12/24/17 09:26 Dose: 600 mg Heparin Sodium (Porcine) (Heparin) 5,000 units SC Q8 [facility] Last Admin: 12/24/17 06:25 Dose: 5,000 units Azithromycin 500 mg/ Sodium (Chloride) 250 mls @ 250 mls/hr IVPB DAILY [facility] Last Admin: 12/24/17 09:27 Dose: 250 mls/hr Insulin Glargine (Lantus) 10 unit SC PCB [facility] Last Admin: 12/24/17 09:35 Dose: 10 units Insulin Human Regular (Novolin R) 0 unit SC ACHS [facility] PRN Reason: Protocol Last Admin: 12/24/17 08:01 Dose: 3 unit Insulin Human Regular (Novolin R) 3 unit SC TIDPC [facility] Last Admin: 12/24/17 09:35 Dose: 3 unit Losartan Potassium (Cozaar) 100 mg PO DAILY [facility] Last Admin: 12/24/17 09:26 Dose: 100 mg Oxybutynin Chloride (Ditropan Xl) 5 mg PO DAILY [facility] Last Admin: 12/24/17 09:26 Dose: 5 mg Oxycodone/Acetaminophen (Percocet 5/325 Mg Tab) 1 tab PO Q8H PRN PRN Reason: Pain, moderate (4-7) Stop: 12/25/17 13:46 Last Admin: 12/24/17 10:40 Dose: 1 tab Pantoprazole Sodium (Protonix Ec Tab) 40 mg PO DAILY [facility] Last Admin: 12/24/17 09:26 Dose: 40 mg Rosuvastatin Calcium (Crestor) 10 mg PO HS [facility] Last Admin: 12/23/17 22:10 Dose: 10 mg Tiotropium [place] (Spiriva) 18 mcg IH RQD [facility] - Labs Labs: 12/23/17 06:54 12/23/17 06:54 PT 13.5 SECONDS (9.7-12.2) H 12/19/17 14:06 INR 1.2 12/19/17 14:06 - Constitutional Appears: Non-toxic, No Acute Distress, Chronically Ill - Head Exam Head Exam: NORMAL INSPECTION, NORMOCEPHALIC - Eye Exam Eye Exam: Normal appearance, PERRL - ENT Exam ENT Exam: Mucous Membranes Moist, Normal Exam - Neck Exam Neck Exam: Normal Inspection - Respiratory Exam Respiratory Exam: Clear to Ausculation Bilateral, NORMAL BREATHING PATTERN - Cardiovascular Exam Cardiovascular Exam: REGULAR RHYTHM, RRR - GI/Abdominal Exam GI & Abdominal Exam: Distended, Soft, Normal Bowel Sounds - Extremities Exam Extremities Exam: Normal Inspection - Neurological Exam Neurological Exam: Alert, Awake, Oriented x3 - Psychiatric Exam Psychiatric exam: Normal Affect, Normal Mood - Skin Skin Exam: Normal Color, Warm Assessment and Plan (1) CHF (congestive heart failure) Status: Acute (2) Diabetes mellitus with ESRD (end-stage renal disease) Status: Acute (3) Uncontrolled diabetes mellitus Status: Acute - Assessment and Plan (Free Text) Assessment: maintain hd mwf supportive care
--- NOTE | 2017-12-24 16:37 | RAD ---
HISTORY: sob, follow up pleural effusion COMPARISON: Chest x-ray performed 12/22/17 TECHNIQUE: Chest PA and lateral FINDINGS: Examination markedly limited due to hypoinflation, habitus, and patient obliquity. LUNGS: Right middle and lower lobe consolidation and/or pleural effusion. Mild to moderate pulmonary venous congestion. No definite pneumothorax. CARDIOVASCULAR: Cardiomegaly. OSSEOUS STRUCTURES: No acute osseous abnormality identified. VISUALIZED UPPER ABDOMEN: Unremarkable. OTHER FINDINGS: None. IMPRESSION: Hypoinflation. Cardiomegaly. Right middle and lower lobe consolidation and/or pleural effusion. Mild to moderate pulmonary venous congestion.
[2017-12-24] MEDS: Promethazine 6.25 MG/5 ML CUP PO SCH ×2 (18:00→21:13)
--- NOTE | 2017-12-24 21:18 | CP.PCM.PN ---
Subjective - Date & Time of Evaluation Date of Evaluation: 12/24/17 Time of Evaluation: 21:15 - Subjective Subjective: uncontrolled diabetes Objective - Vital Signs/Intake and Output Vital Signs (last 24 hours): Temp Pulse Resp BP Pulse Ox 98.8 F 102 H 20 115/69 94 L 12/24/17 16:00 12/24/17 16:00 12/24/17 16:00 12/24/17 16:00 12/24/17 16:00 Intake and Output: 12/24/17 12/25/17 18:59 06:59 Intake Total 240 Balance 240 - Medications Medications: Current Medications Amlodipine Besylate (Norvasc) 10 mg PO DAILY [facility] Last Admin: 12/24/17 09:26 Dose: 10 mg Clonidine HCl (Catapres) 0.1 mg PO TID [facility] Last Admin: 12/24/17 17:40 Dose: 0.1 mg Fluticasone Propionate (Flonase) 1 spr NS RQD [facility] Last Admin: 12/24/17 08:05 Dose: 1 spr Gabapentin (Neurontin) 600 mg PO DAILY [facility] Last Admin: 12/24/17 09:26 Dose: 600 mg Heparin Sodium (Porcine) (Heparin) 5,000 units SC Q8 [facility] Last Admin: 12/24/17 13:38 Dose: 5,000 units Azithromycin 500 mg/ Sodium (Chloride) 250 mls @ 250 mls/hr IVPB DAILY [facility] Last Admin: 12/24/17 09:27 Dose: 250 mls/hr Insulin Glargine (Lantus) 10 unit SC PCB [facility] Last Admin: 12/24/17 09:35 Dose: 10 units Insulin Human Regular (Novolin R) 0 unit SC ACHS [facility] PRN Reason: Protocol Last Admin: 12/24/17 18:01 Dose: Not Given Insulin Human Regular (Novolin R) 3 unit SC TIDPC [facility] Last Admin: 12/24/17 18:01 Dose: 3 unit Losartan Potassium (Cozaar) 100 mg PO DAILY [facility] Last Admin: 12/24/17 09:26 Dose: 100 mg Oxybutynin Chloride (Ditropan Xl) 5 mg PO DAILY [facility] Last Admin: 12/24/17 09:26 Dose: 5 mg Oxycodone/Acetaminophen (Percocet 5/325 Mg Tab) 1 tab PO Q8H PRN PRN Reason: Pain, moderate (4-7) Stop: 12/25/17 13:46 Last Admin: 12/24/17 10:40 Dose: 1 tab Pantoprazole Sodium (Protonix Ec Tab) 40 mg PO DAILY [facility] Last Admin: 12/24/17 09:26 Dose: 40 mg Promethazine HCl (Phenergan Syrup) 6.25 mg PO QID [facility] Last Admin: 12/24/17 18:00 Dose: 6.25 mg Rosuvastatin Calcium (Crestor) 10 mg PO HS [facility] Last Admin: 12/23/17 22:10 Dose: 10 mg Tiotropium [place] (Spiriva) 18 mcg IH RQD [facility] - Labs Labs: 12/23/17 06:54 12/23/17 06:54 PT 13.5 SECONDS (9.7-12.2) H 12/19/17 14:06 INR 1.2 12/19/17 14:06 Assessment and Plan (1) 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 Anthony is 42 y/o admitted for SOB,couugh , chest pain found with pleural effusion s/p thoracocentesis as per pt. has DM type 1 @ age of 20 (+) neuropathy , (+) retinopathy , (+) ESRD on HD (-) CAD (+) PVD s/p CVA also with multinodular goiter s/p FNA years ago , benign , not on thyroid meds , denies personal/fhx of thyroid cancer , denies h/o neck irradiation blood glucose log : 140-200 , last 114 , no hypoglycemia Allergy NKDA Past medical history: HTN , CHF , CVA Past surgical history: CS , Left forarm graft shunt Psychiatry history: denies Social history : denies smoking , ETOH use or illicit drug use Family history : irrelevant ROS: Constitutional: denies fever, tiredness/weakness. HEENT: denies earache, change in voice .Respiratory: denies cough, (+) sob . CVS :no chest pain, no palpitations . Abdomen: no abdominal pain, no nausea /vomiting, no change bowel movement. 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 Extremities: no edema, no tremors. Skin: no itching, no rash LMP 2014 Physical exam Well-developed AAO x3 , ,NAD on oxygen via [place] VSS HEENT: norm cephalic, atraumatic, no lid lag , no exophthalmos NECK: supple, no palpable lymphadenopathy THYROID: (+) thyromegaly, not tender CHEST: fair air entry, bilateral, CVS: S1,S2 ABDOMEN: bowel sound present, benign, obese, no wide purple striae , no bruises EXTREMITIES: (+) pitting edema, clubbing or cyanosis, no palpable hand tremors Skin: acanthosis nigricans lab: 12/2017 a1c 15.6 , TSH 1.66 2015 a1c 9.7 Assessment sever symptomatic hypoglycemia , resolved uncontrolled type 1 DM with retinopathy & neuropathy ESRD on HD multinodular goiter CHF /pleural effusion plan continue Levemir 10 units @ 8 am continue Novoloin R low dose coverage, no 3 am coverage continue novoloin R 3 units tid with meals if eat > 60% stop Lianna thyroid us when satble we will follow with you. Status: Acute (2) ESRD (end stage renal disease) on dialysis Status: Acute (3) Diabetes mellitus with ESRD (end-stage renal disease) Status: Acute (4) Goiter Status: Acute (5) Pleural effusion on right Status: Acute
[2017-12-25 07:31] LABS: BASO % 0.5 % (0.0-2.0); EOS # 0.2 K/uL (0.0-0.7); EOS % 3.2 % (0.0-4.0); HEMOGLOBIN 9.7 g/dL (11.0-16.0); LYMPH # 1.2 K/uL (1.0-4.3); LYMPH % 17.4 % (20.0-40.0); MEAN CELL VOLUME 87.7 fL (81.0-99.0); MEAN CORPUSCULAR HEMOGLOBIN 28.7 pg (27.0-31.0); MEAN CORPUSCULAR HGB CONC 32.8 g/dL (33.0-37.0); MEAN PLATELET VOLUME 10.1 fL (7.2-11.7); MONO # 1.7 K/uL (0.0-0.8); MONO % 24.9 % (0.0-10.0); NEUT # 3.7 K/uL (1.8-7.0); PLATELET COUNT 175 K/uL (130-400); RBC 3.39 Mil/uL (3.80-5.20); RED CELL DISTRIBUTION WIDTH 15.6 % (11.5-14.5); WHITE BLOOD COUNT 6.8 K/uL (4.8-10.8)
[2017-12-25] MEDS: (Novolin R) Insulin Human Regular 100 units/ml vial SC SCH ×7 (08:30→21:20)
[2017-12-25] MEDS: (Lantus) Insulin Glargine, Recombinant SC SCH (08:41)
[2017-12-25 08:42] LABS: CALCIUM 8.4 mg/dl (8.6-10.4)
[2017-12-25] MEDS: Fluticasone Nasal 50 mcg/Spray NS SCH (08:42)
[2017-12-25 08:58] LABS: BANDS 1 % (0-2); EOSINOPHIL 2 % (0-4); LYMPHOCYTE 14 % (20-40); PLATELET ESTIMATE NORMAL (NORMAL); TOTAL CELLS COUNTED 100
[2017-12-25 08:59] LABS: MONOCYTE 20 % (0-10); NEUTROPHIL 64 % (50-75)
[2017-12-25 09:00] LABS: ANISOCYTOSIS SLIGHT; HYPOCHROMIC SLIGHT; POIKILOCYTOSIS SLIGHT
[2017-12-25 09:01] LABS: LARGE PLATELETS PRESENT
[2017-12-25] MEDS: Pantoprazole 40 mg EC Tab PO SCH ×2 (10:07→14:47)
[2017-12-25] MEDS: Promethazine 6.25 MG/5 ML CUP PO SCH ×4 (10:07→21:17)
[2017-12-25] MEDS: Azithromycin 500 MG in Sodium Chloride 0.9% 250 ML IVPB SCH ×2 (10:07→14:49)
--- NOTE | 2017-12-25 13:14 | CP.PCM.PN ---
Subjective - Date & Time of Evaluation Date of Evaluation: 12/25/17 Time of Evaluation: 13:11 - Subjective Subjective: Seen at dialysis less SOB DM uncontrolled- regimen to be adjusted UF 2000ml with HD BP controlled Objective - Vital Signs/Intake and Output Vital Signs (last 24 hours): Temp Pulse Resp BP Pulse Ox 98.8 F 80 16 126/84 100 12/25/17 10:00 12/25/17 12:00 12/25/17 12:00 12/25/17 12:00 12/25/17 12:00 Intake and Output: 12/25/17 12/25/17 06:59 18:59 Intake Total 240 Balance 240 - Medications Medications: Current Medications Amlodipine Besylate (Norvasc) 10 mg PO DAILY [facility] Last Admin: 12/25/17 10:07 Dose: Not Given Clonidine HCl (Catapres) 0.1 mg PO TID [facility] Last Admin: 12/25/17 10:06 Dose: Not Given Fluticasone Propionate (Flonase) 1 spr NS RQD [facility] Last Admin: 12/25/17 08:42 Dose: 1 spr Gabapentin (Neurontin) 600 mg PO DAILY [facility] Last Admin: 12/25/17 10:07 Dose: Not Given Heparin Sodium (Porcine) (Heparin) 5,000 units SC Q8 [facility] Last Admin: 12/25/17 05:41 Dose: 5,000 units Azithromycin 500 mg/ Sodium (Chloride) 250 mls @ 250 mls/hr IVPB DAILY [facility] Last Admin: 12/25/17 10:07 Dose: Not Given Insulin Glargine (Lantus) 10 unit SC PCB [facility] Last Admin: 12/25/17 08:41 Dose: 10 units Insulin Human Regular (Novolin R) 0 unit SC ACHS [facility] PRN Reason: Protocol Last Admin: 12/25/17 08:30 Dose: Not Given Insulin Human Regular (Novolin R) 3 unit SC TIDPC [facility] Last Admin: 12/25/17 08:42 Dose: 3 unit Losartan Potassium (Cozaar) 100 mg PO DAILY [facility] Last Admin: 12/25/17 10:06 Dose: Not Given Oxybutynin Chloride (Ditropan Xl) 5 mg PO DAILY [facility] Last Admin: 12/25/17 10:06 Dose: Not Given Oxycodone/Acetaminophen (Percocet 5/325 Mg Tab) 1 tab PO Q8H PRN PRN Reason: Pain, moderate (4-7) Stop: 12/25/17 13:46 Last Admin: 12/24/17 10:40 Dose: 1 tab Pantoprazole Sodium (Protonix Ec Tab) 40 mg PO DAILY [facility] Last Admin: 12/25/17 10:07 Dose: Not Given Promethazine HCl (Phenergan Syrup) 6.25 mg PO QID [facility] Last Admin: 12/25/17 10:07 Dose: Not Given Rosuvastatin Calcium (Crestor) 10 mg PO HS [facility] Last Admin: 12/24/17 21:13 Dose: 10 mg Tiotropium [place] (Spiriva) 18 mcg IH RQD [facility] - Labs Labs: 12/25/17 07:15 12/25/17 07:15 PT 13.5 SECONDS (9.7-12.2) H 12/19/17 14:06 INR 1.2 12/19/17 14:06 - Constitutional Appears: Non-toxic, No Acute Distress - Head Exam Head Exam: ATRAUMATIC, NORMAL INSPECTION - Eye Exam Eye Exam: EOMI, Normal appearance - Neck Exam Neck Exam: Normal Inspection. absent: Tenderness - Respiratory Exam Respiratory Exam: Clear to Ausculation Bilateral, NORMAL BREATHING PATTERN - Cardiovascular Exam Cardiovascular Exam: REGULAR RHYTHM, +S1 - GI/Abdominal Exam GI & Abdominal Exam: Soft. absent: Tenderness - Extremities Exam Extremities Exam: Normal Inspection. absent: Tenderness - Neurological Exam Neurological Exam: Alert, CN II-XII Intact - Skin Skin Exam: Dry, Warm Assessment and Plan (1) CHF (congestive heart failure) Status: Acute (2) ESRD (end stage renal disease) on dialysis Status: Acute (3) Controlled type 2 diabetes mellitus with diabetic nephropathy Status: Acute (4) Diabetic nephropathy Status: Acute (5) Hypertension Status: Chronic - Assessment and Plan (Free Text) Plan: Same dialysis and meds outpt dialysis when DM controlled
[2017-12-25] MEDS ORDERED: cefTRIAXone IV 1 gm in Dextros 50 ML IVPB SCH (15:30)
--- NOTE | 2017-12-25 20:05 | CP.PCM.PN ---
Subjective - Date & Time of Evaluation Date of Evaluation: 12/25/17 Time of Evaluation: 20:04 Objective - Vital Signs/Intake and Output Vital Signs (last 24 hours): Temp Pulse Resp BP Pulse Ox 99.2 F 106 H 20 164/92 H 95 12/25/17 16:00 12/25/17 16:00 12/25/17 16:00 12/25/17 16:00 12/25/17 16:00 Intake and Output: 12/25/17 12/26/17 18:59 06:59 Intake Total 400 Balance 400 - Medications Medications: Current Medications Amlodipine Besylate (Norvasc) 10 mg PO DAILY [facility] Last Admin: 12/25/17 10:07 Dose: Not Given Clonidine HCl (Catapres) 0.1 mg PO TID [facility] Last Admin: 12/25/17 17:23 Dose: 0.1 mg Fluticasone Propionate (Flonase) 1 spr NS RQD [facility] Last Admin: 12/25/17 08:42 Dose: 1 spr Gabapentin (Neurontin) 600 mg PO DAILY [facility] Last Admin: 12/25/17 14:48 Dose: 600 mg Heparin Sodium (Porcine) (Heparin) 5,000 units SC Q8 [facility] Last Admin: 12/25/17 14:48 Dose: 5,000 units Insulin Glargine (Lantus) 10 unit SC PCB [facility] Last Admin: 12/25/17 08:41 Dose: 10 units Insulin Human Regular (Novolin R) 0 unit SC ACHS [facility] PRN Reason: Protocol Last Admin: 12/25/17 17:24 Dose: 2 unit Insulin Human Regular (Novolin R) 3 unit SC TIDPC [facility] Last Admin: 12/25/17 17:23 Dose: 3 unit Losartan Potassium (Cozaar) 100 mg PO DAILY [facility] Last Admin: 12/25/17 10:06 Dose: Not Given Moxifloxacin HCl (Avelox) 400 mg PO DAILY [facility] Last Admin: 12/25/17 17:23 Dose: 400 mg Oxybutynin Chloride (Ditropan Xl) 5 mg PO DAILY [facility] Last Admin: 12/25/17 14:47 Dose: 5 mg Pantoprazole Sodium (Protonix Ec Tab) 40 mg PO DAILY [facility] Last Admin: 12/25/17 14:47 Dose: 40 mg Promethazine HCl (Phenergan Syrup) 6.25 mg PO QID [facility] Last Admin: 12/25/17 17:25 Dose: 6.25 mg Rosuvastatin Calcium (Crestor) 10 mg PO HS [facility] Last Admin: 12/24/17 21:13 Dose: 10 mg Tiotropium [place] (Spiriva) 18 mcg IH RQD [facility] - Labs Labs: 12/25/17 07:15 12/25/17 07:15 PT 13.5 SECONDS (9.7-12.2) H 12/19/17 14:06 INR 1.2 12/19/17 14:06
[2017-12-26] MEDS: Fluticasone Nasal 50 mcg/Spray NS SCH (08:26)
[2017-12-26] MEDS: (Novolin R) Insulin Human Regular 100 units/ml vial SC SCH ×8 (08:26→21:44)
[2017-12-26] MEDS: (Lantus) Insulin Glargine, Recombinant SC SCH (09:57)
--- NOTE | 2017-12-26 09:57 | CP.PCM.PN ---
Subjective - Date & Time of Evaluation Date of Evaluation: 12/26/17 Time of Evaluation: 09:56 - Subjective Subjective: stable dialysis 12/25 no new complaint less cough BP controlled Objective - Vital Signs/Intake and Output Vital Signs (last 24 hours): Temp Pulse Resp BP Pulse Ox 98 F 93 H 20 110/69 97 12/26/17 07:57 12/26/17 07:57 12/26/17 07:57 12/26/17 07:57 12/26/17 07:57 Intake and Output: 12/26/17 12/26/17 06:59 18:59 Intake Total 240 Balance 240 - Medications Medications: Current Medications Amlodipine Besylate (Norvasc) 10 mg PO DAILY [facility] Last Admin: 12/25/17 10:07 Dose: Not Given Clonidine HCl (Catapres) 0.1 mg PO TID [facility] Last Admin: 12/25/17 17:23 Dose: 0.1 mg Fluticasone Propionate (Flonase) 1 spr NS RQD [facility] Last Admin: 12/26/17 08:26 Dose: 1 spr Gabapentin (Neurontin) 600 mg PO DAILY [facility] Last Admin: 12/25/17 14:48 Dose: 600 mg Heparin Sodium (Porcine) (Heparin) 5,000 units SC Q8 [facility] Last Admin: 12/26/17 05:40 Dose: 5,000 units Insulin Glargine (Lantus) 10 unit SC PCB [facility] Last Admin: 12/25/17 08:41 Dose: 10 units Insulin Human Regular (Novolin R) 0 unit SC ACHS [facility] PRN Reason: Protocol Last Admin: 12/26/17 08:26 Dose: 2 unit Insulin Human Regular (Novolin R) 3 unit SC TIDPC [facility] Last Admin: 12/26/17 08:27 Dose: 3 unit Losartan Potassium (Cozaar) 100 mg PO DAILY [facility] Last Admin: 12/25/17 10:06 Dose: Not Given Moxifloxacin HCl (Avelox) 400 mg PO DAILY [facility] Last Admin: 12/25/17 17:23 Dose: 400 mg Oxybutynin Chloride (Ditropan Xl) 5 mg PO DAILY [facility] Last Admin: 12/25/17 14:47 Dose: 5 mg Pantoprazole Sodium (Protonix Ec Tab) 40 mg PO DAILY [facility] Last Admin: 12/25/17 14:47 Dose: 40 mg Promethazine HCl (Phenergan Syrup) 6.25 mg PO QID [facility] Last Admin: 12/25/17 21:17 Dose: 6.25 mg Rosuvastatin Calcium (Crestor) 10 mg PO HS [facility] Last Admin: 12/25/17 21:18 Dose: 10 mg Tiotropium [place] (Spiriva) 18 mcg IH RQD [facility] - Labs Labs: 12/25/17 07:15 12/25/17 07:15 PT 13.5 SECONDS (9.7-12.2) H 12/19/17 14:06 INR 1.2 12/19/17 14:06 - Constitutional Appears: No Acute Distress, Chronically Ill - Head Exam Head Exam: ATRAUMATIC, NORMAL INSPECTION - Eye Exam Eye Exam: EOMI, Normal appearance - Neck Exam Neck Exam: Normal Inspection. absent: Tenderness - Respiratory Exam Respiratory Exam: Clear to Ausculation Bilateral, NORMAL BREATHING PATTERN - Cardiovascular Exam Cardiovascular Exam: REGULAR RHYTHM, +S1 - GI/Abdominal Exam GI & Abdominal Exam: Soft. absent: Tenderness - Extremities Exam Extremities Exam: Normal Inspection. absent: Tenderness - Neurological Exam Neurological Exam: Alert, CN II-XII Intact - Skin Skin Exam: Dry, Warm Assessment and Plan (1) CHF (congestive heart failure) Status: Acute (2) ESRD (end stage renal disease) on dialysis Status: Acute (3) Controlled type 2 diabetes mellitus with diabetic nephropathy Status: Acute (4) Diabetic nephropathy Status: Acute (5) Hypertension Status: Chronic - Assessment and Plan (Free Text) Plan: repeat dialysis in AM Same meds
[2017-12-26] MEDS: Pantoprazole 40 mg EC Tab PO SCH (10:09)
[2017-12-26] MEDS: Promethazine 6.25 MG/5 ML CUP PO SCH ×4 (10:15→21:41)
--- NOTE | 2017-12-26 11:09 | PCM.SURG1 ---
Surgeon's Initial Post Op Note - Surgeon's Notes Surgeon: Cristiano Bradford MD Platform Power Technician: NONE Type of Anesthesia: Local Pre-Operative Diagnosis: Pleural effusion, shortness of breath Operative Findings: US showed large right pleural effusion Post-Operative Diagnosis: pleural effusion, shortness of breath Operation Performed: US guided right thoracentesis Specimen/Specimens Removed: 1500 cc of ayaan colored fluid Estimated Blood Loss: EBL {In ML}: 0 Blood Products Given: N/A Drains Used: No Drains Post-Op Condition: Fair Date of Surgery/Procedure: 12/26/17 Time of Surgery/Procedure: 11:05
--- NOTE | 2017-12-26 17:43 | CP.PCM.PN ---
Subjective - Date & Time of Evaluation Date of Evaluation: 12/26/17 Time of Evaluation: 17:41 - Subjective Subjective: uncontrolled IDDM Objective - Vital Signs/Intake and Output Vital Signs (last 24 hours): Temp Pulse Resp BP Pulse Ox 98.1 F 82 20 135/65 100 12/26/17 16:00 12/26/17 16:00 12/26/17 16:00 12/26/17 16:00 12/26/17 16:00 Intake and Output: 12/26/17 12/26/17 06:59 18:59 Intake Total 240 Balance 240 - Medications Medications: Current Medications Amlodipine Besylate (Norvasc) 5 mg PO DAILY [facility] Clonidine HCl (Catapres) 0.1 mg PO TID [facility] Last Admin: 12/26/17 17:25 Dose: 0.1 mg Fluticasone Propionate (Flonase) 1 spr NS RQD [facility] Last Admin: 12/26/17 08:26 Dose: 1 spr Gabapentin (Neurontin) 600 mg PO DAILY [facility] Last Admin: 12/26/17 10:06 Dose: 600 mg Heparin Sodium (Porcine) (Heparin) 5,000 units SC Q8 [facility] Last Admin: 12/26/17 14:36 Dose: 5,000 units Insulin Glargine (Lantus) 10 unit SC PCB [facility] Last Admin: 12/26/17 09:57 Dose: 10 units Insulin Human Regular (Novolin R) 0 unit SC ACHS [facility] PRN Reason: Protocol Last Admin: 12/26/17 17:10 Dose: 4 unit Insulin Human Regular (Novolin R) 4 unit SC TIDPC [facility] Losartan Potassium (Cozaar) 100 mg PO DAILY [facility] Moxifloxacin HCl (Avelox) 400 mg PO DAILY [facility] Last Admin: 12/26/17 10:06 Dose: 400 mg Oxybutynin Chloride (Ditropan Xl) 5 mg PO DAILY [facility] Last Admin: 12/26/17 10:03 Dose: 5 mg Pantoprazole Sodium (Protonix Ec Tab) 40 mg PO DAILY [facility] Last Admin: 12/26/17 10:09 Dose: 40 mg Promethazine HCl (Phenergan Syrup) 6.25 mg PO QID [facility] Last Admin: 12/26/17 17:33 Dose: 6.25 mg Rosuvastatin Calcium (Crestor) 10 mg PO HS [facility] Last Admin: 12/25/17 21:18 Dose: 10 mg Tiotropium [place] (Spiriva) 18 mcg IH RQD [facility] - Labs Labs: 12/25/17 07:15 12/25/17 07:15 PT 13.5 SECONDS (9.7-12.2) H 12/19/17 14:06 INR 1.2 12/19/17 14:06 Assessment and Plan (1) 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 Anthony is 42 y/o admitted for SOB,couugh , chest pain found with pleural effusion s/p thoracocentesis as per pt. has DM type 1 @ age of 20 (+) neuropathy , (+) retinopathy , (+) ESRD on HD (-) CAD (+) PVD s/p CVA also with multinodular goiter s/p FNA years ago , benign , not on thyroid meds , denies personal/fhx of thyroid cancer , denies h/o neck irradiation blood glucose log : 150 -200 , no hypoglycemia Allergy NKDA Past medical history: HTN , CHF , CVA Past surgical history: CS , Left forarm graft shunt Psychiatry history: denies Social history : denies smoking , ETOH use or illicit drug use Family history : irrelevant ROS: Constitutional: denies fever, tiredness/weakness. HEENT: denies earache, change in voice .Respiratory: denies cough, (+) sob . CVS :no chest pain, no palpitations . Abdomen: no abdominal pain, no nausea /vomiting, no change bowel movement. 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 Extremities: no edema, no tremors. Skin: no itching, no rash LMP 2014 Physical exam Well-developed AAO x3 , ,NAD VSS HEENT: norm cephalic, atraumatic, no lid lag , no exophthalmos NECK: supple, no palpable lymphadenopathy THYROID: (+) thyromegaly, not tender CHEST: fair air entry, bilateral, CVS: S1,S2 ABDOMEN: bowel sound present, benign, obese, no wide purple striae , no bruises EXTREMITIES: (+) pitting edema, clubbing or cyanosis, no palpable hand tremors Skin: acanthosis nigricans lab: 12/2017 a1c 15.6 , TSH 1.66 2015 a1c 9.7 Assessment sever symptomatic hypoglycemia , resolved uncontrolled type 1 DM with retinopathy & neuropathy ESRD on HD multinodular goiter CHF /pleural effusion plan continue Levemir 10 units @ 8 am continue Novoloin R low dose coverage, no 3 am coverage increase novoloin R 4 units tid with meals if eat > 60% thyroid us we will follow with you. Status: Acute (2) ESRD (end stage renal disease) on dialysis Status: Acute (3) Diabetes mellitus with ESRD (end-stage renal disease) Status: Acute (4) Goiter Status: Acute (5) Pleural effusion on right Status: Acute
--- NOTE | 2017-12-26 18:28 | CP.PCM.PN ---
Subjective - Date & Time of Evaluation Date of Evaluation: 12/26/17 Time of Evaluation: 18:27 Objective - Vital Signs/Intake and Output Vital Signs (last 24 hours): Temp Pulse Resp BP Pulse Ox 98.1 F 82 20 135/65 100 12/26/17 16:00 12/26/17 16:00 12/26/17 16:00 12/26/17 16:00 12/26/17 16:00 Intake and Output: 12/26/17 12/26/17 06:59 18:59 Intake Total 240 Balance 240 - Medications Medications: Current Medications Amlodipine Besylate (Norvasc) 5 mg PO DAILY [facility] Clonidine HCl (Catapres) 0.1 mg PO TID [facility] Last Admin: 12/26/17 17:25 Dose: 0.1 mg Fluticasone Propionate (Flonase) 1 spr NS RQD [facility] Last Admin: 12/26/17 08:26 Dose: 1 spr Gabapentin (Neurontin) 600 mg PO DAILY [facility] Last Admin: 12/26/17 10:06 Dose: 600 mg Heparin Sodium (Porcine) (Heparin) 5,000 units SC Q8 [facility] Last Admin: 12/26/17 14:36 Dose: 5,000 units Insulin Glargine (Lantus) 10 unit SC PCB [facility] Last Admin: 12/26/17 09:57 Dose: 10 units Insulin Human Regular (Novolin R) 0 unit SC ACHS [facility] PRN Reason: Protocol Last Admin: 12/26/17 17:10 Dose: 4 unit Insulin Human Regular (Novolin R) 4 unit SC TIDPC [facility] Losartan Potassium (Cozaar) 100 mg PO DAILY [facility] Moxifloxacin HCl (Avelox) 400 mg PO DAILY [facility] Last Admin: 12/26/17 10:06 Dose: 400 mg Oxybutynin Chloride (Ditropan Xl) 5 mg PO DAILY [facility] Last Admin: 12/26/17 10:03 Dose: 5 mg Pantoprazole Sodium (Protonix Ec Tab) 40 mg PO DAILY [facility] Last Admin: 12/26/17 10:09 Dose: 40 mg Promethazine HCl (Phenergan Syrup) 6.25 mg PO QID [facility] Last Admin: 12/26/17 17:33 Dose: 6.25 mg Rosuvastatin Calcium (Crestor) 10 mg PO HS [facility] Last Admin: 02/07/18 21:18 Dose: 10 mg Tiotropium [place] (Spiriva) 18 mcg IH RQD GUI - Labs Labs: 12/25/17 07:15 12/25/17 07:15 PT 13.5 SECONDS (9.7-12.2) H 12/19/17 14:06 INR 1.2 12/19/17 14:06
[2017-12-27] MEDS: (Novolin R) Insulin Human Regular 100 units/ml vial SC SCH ×7 (08:19→21:51)
[2017-12-27] MEDS: (Lantus) Insulin Glargine, Recombinant SC SCH (08:20)
[2017-12-27] MEDS: Fluticasone Nasal 50 mcg/Spray NS SCH (08:23)
[2017-12-27] MEDS: Promethazine 6.25 MG/5 ML CUP PO SCH ×4 (09:14→21:17)
[2017-12-27] MEDS: Pantoprazole 40 mg EC Tab PO SCH (09:14)
--- NOTE | 2017-12-27 12:17 | CP.PCM.PN ---
Subjective - Date & Time of Evaluation Date of Evaluation: 12/27/17 Time of Evaluation: 12:15 - Subjective Subjective: Seen at dialysis - to UF 2500-3000ml fluids s/p thoracentesis 8- 1500ml fluid drained still with cough, no fevers Objective - Vital Signs/Intake and Output Vital Signs (last 24 hours): Temp Pulse Resp BP Pulse Ox 98.4 F 127 H 18 127/84 100 12/27/17 09:30 12/27/17 11:30 12/27/17 11:30 12/27/17 11:30 12/27/17 11:30 Intake and Output: 12/27/17 12/27/17 06:59 18:59 Intake Total 490 Balance 490 - Medications Medications: Current Medications Amlodipine Besylate (Norvasc) 5 mg PO DAILY [facility] Last Admin: 12/27/17 09:12 Dose: 5 mg Clonidine HCl (Catapres) 0.1 mg PO TID [facility] Last Admin: 12/27/17 09:13 Dose: 0.1 mg Fluticasone Propionate (Flonase) 1 spr NS RQD [facility] Last Admin: 12/27/17 08:23 Dose: 1 spr Gabapentin (Neurontin) 600 mg PO DAILY [facility] Heparin Sodium (Porcine) (Heparin) 5,000 units SC Q8 [facility] Last Admin: 12/27/17 05:38 Dose: 5,000 units Insulin Glargine (Lantus) 10 unit SC PCB [facility] Last Admin: 12/27/17 08:20 Dose: 10 units Insulin Human Regular (Novolin R) 0 unit SC ACHS [facility] PRN Reason: Protocol Last Admin: 12/27/17 11:39 Dose: Not Given Insulin Human Regular (Novolin R) 4 unit SC TIDPC [facility] Last Admin: 12/27/17 08:20 Dose: 4 unit Losartan Potassium (Cozaar) 100 mg PO DAILY [facility] Last Admin: 12/27/17 09:12 Dose: 100 mg Moxifloxacin HCl (Avelox) 400 mg PO DAILY [facility] Last Admin: 12/27/17 09:13 Dose: 400 mg Oxybutynin Chloride (Ditropan Xl) 5 mg PO DAILY [facility] Last Admin: 12/27/17 09:13 Dose: 5 mg Pantoprazole Sodium (Protonix Ec Tab) 40 mg PO DAILY [facility] Last Admin: 12/27/17 09:14 Dose: 40 mg Promethazine HCl (Phenergan Syrup) 6.25 mg PO QID [facility] Last Admin: 12/27/17 09:14 Dose: 6.25 mg Rosuvastatin Calcium (Crestor) 10 mg PO HS [facility] Last Admin: 12/26/17 21:41 Dose: 10 mg Tiotropium [place] (Spiriva) 18 mcg IH RQD [facility] - Labs Labs: 12/25/17 07:15 12/25/17 07:15 PT 13.5 SECONDS (9.7-12.2) H 12/19/17 14:06 INR 1.2 12/19/17 14:06 - Constitutional Appears: No Acute Distress, Chronically Ill - Head Exam Head Exam: ATRAUMATIC, NORMAL INSPECTION - Eye Exam Eye Exam: EOMI, Normal appearance - Neck Exam Neck Exam: Normal Inspection. absent: Tenderness - Respiratory Exam Respiratory Exam: Rhonchi, NORMAL BREATHING PATTERN - Cardiovascular Exam Cardiovascular Exam: REGULAR RHYTHM, +S1 - GI/Abdominal Exam GI & Abdominal Exam: Soft. absent: Tenderness - Extremities Exam Extremities Exam: Normal Inspection. absent: Tenderness - Neurological Exam Neurological Exam: Alert, CN II-XII Intact - Skin Skin Exam: Dry, Warm Assessment and Plan (1) CHF (congestive heart failure) Status: Acute (2) ESRD (end stage renal disease) on dialysis Status: Acute (3) Controlled type 2 diabetes mellitus with diabetic nephropathy Status: Acute (4) Diabetic nephropathy Status: Acute (5) Hypertension Status: Chronic - Assessment and Plan (Free Text) Plan: UF as much as possible same plans as per medicine dialysis MWF/ same BP control
--- NOTE | 2017-12-27 12:28 | CP.PCM.PN ---
Subjective - Date & Time of Evaluation Date of Evaluation: 12/27/17 Time of Evaluation: 12:28 Objective - Vital Signs/Intake and Output Vital Signs (last 24 hours): Temp Pulse Resp BP Pulse Ox 98.4 F 127 H 18 127/84 100 12/27/17 09:30 12/27/17 11:30 12/27/17 11:30 12/27/17 11:30 12/27/17 11:30 Intake and Output: 12/27/17 12/27/17 06:59 18:59 Intake Total 490 Balance 490 - Medications Medications: Current Medications Amlodipine Besylate (Norvasc) 5 mg PO DAILY [facility] Last Admin: 12/27/17 09:12 Dose: 5 mg Clonidine HCl (Catapres) 0.1 mg PO TID [facility] Last Admin: 12/27/17 09:13 Dose: 0.1 mg Fluticasone Propionate (Flonase) 1 spr NS RQD [facility] Last Admin: 12/27/17 08:23 Dose: 1 spr Gabapentin (Neurontin) 600 mg PO DAILY [facility] Heparin Sodium (Porcine) (Heparin) 5,000 units SC Q8 [facility] Last Admin: 12/27/17 05:38 Dose: 5,000 units Insulin Glargine (Lantus) 10 unit SC PCB [facility] Last Admin: 12/27/17 08:20 Dose: 10 units Insulin Human Regular (Novolin R) 0 unit SC ACHS [facility] PRN Reason: Protocol Last Admin: 12/27/17 11:39 Dose: Not Given Insulin Human Regular (Novolin R) 4 unit SC TIDPC [facility] Last Admin: 12/27/17 08:20 Dose: 4 unit Losartan Potassium (Cozaar) 100 mg PO DAILY [facility] Last Admin: 12/27/17 09:12 Dose: 100 mg Moxifloxacin HCl (Avelox) 400 mg PO DAILY [facility] Last Admin: 12/27/17 09:13 Dose: 400 mg Oxybutynin Chloride (Ditropan Xl) 5 mg PO DAILY [facility] Last Admin: 12/27/17 09:13 Dose: 5 mg Pantoprazole Sodium (Protonix Ec Tab) 40 mg PO DAILY [facility] Last Admin: 12/27/17 09:14 Dose: 40 mg Promethazine HCl (Phenergan Syrup) 6.25 mg PO QID [facility] Last Admin: 12/27/17 09:14 Dose: 6.25 mg Rosuvastatin Calcium (Crestor) 10 mg PO HS [facility] Last Admin: 12/26/17 21:41 Dose: 10 mg Tiotropium [place] (Spiriva) 18 mcg IH RQD GUI - Labs Labs: 12/25/17 07:15 12/25/17 07:15 PT 13.5 SECONDS (9.7-12.2) H 12/19/17 14:06 INR 1.2 12/19/17 14:06
--- NOTE | 2017-12-27 13:35 | US ---
PROCEDURE: Date of procedure: 12/26/2017 Procedure: 1. Ultrasound-guided Right thoracentesis, CPT 46658 Medications: 6cc 1% Lidocaine HISTORY: Right pleural effusion, shortness of breath TECHNIQUE: Following informed consent ,the Patients' right chest was marked. Procedure time-out was called, and the patient was placed in the sitting position and limited ultrasound showed a large right effusion. The patient's right back was prepped and draped in the usual sterile fashion. After the skin was anesthetized with lidocaine, a drainage catheter was advanced under ultrasound guidance into the pleural space. Ultrasound-guided thoracentesis was performed. A total of 1500 cubic centimeters of straw-colored fluid removed without complication. A Xeroform dressing was applied. IMPRESSION: Ultrasound guided Right thoracentesis. There were no immediate complications.
--- NOTE | 2017-12-27 22:13 | CP.PCM.PN ---
Subjective - Date & Time of Evaluation Date of Evaluation: 12/27/17 Time of Evaluation: 22:11 - Subjective Subjective: uncontrolled IDDM Objective - Vital Signs/Intake and Output Vital Signs (last 24 hours): Temp Pulse Resp BP Pulse Ox 98.4 F 85 17 137/87 100 12/27/17 09:30 12/27/17 13:00 12/27/17 13:00 12/27/17 13:00 12/27/17 13:00 Intake and Output: 12/27/17 12/28/17 18:59 06:59 Intake Total 200 Balance 200 - Medications Medications: Current Medications Amlodipine Besylate (Norvasc) 5 mg PO DAILY [facility] Last Admin: 12/27/17 09:12 Dose: 5 mg Clonidine HCl (Catapres) 0.1 mg PO TID [facility] Last Admin: 12/27/17 17:38 Dose: 0.1 mg Fluticasone Propionate (Flonase) 1 spr NS RQD [facility] Last Admin: 12/27/17 08:23 Dose: 1 spr Gabapentin (Neurontin) 300 mg PO DAILY [facility] Last Admin: 12/27/17 10:55 Dose: Not Given Insulin Glargine (Lantus) 12 unit SC PCB [facility] Insulin Human Regular (Novolin R) 0 unit SC ACHS [facility] PRN Reason: Protocol Last Admin: 12/27/17 21:51 Dose: Not Given Insulin Human Regular (Novolin R) 4 unit SC TIDPC [facility] Last Admin: 12/27/17 17:39 Dose: 4 unit Losartan Potassium (Cozaar) 100 mg PO DAILY [facility] Last Admin: 12/27/17 09:12 Dose: 100 mg Moxifloxacin HCl (Avelox) 400 mg PO DAILY [facility] Last Admin: 12/27/17 09:13 Dose: 400 mg Oxybutynin Chloride (Ditropan Xl) 5 mg PO DAILY [facility] Last Admin: 12/27/17 09:13 Dose: 5 mg Pantoprazole Sodium (Protonix Ec Tab) 40 mg PO DAILY [facility] Last Admin: 12/27/17 09:14 Dose: 40 mg Promethazine HCl (Phenergan Syrup) 6.25 mg PO QID [facility] Last Admin: 12/27/17 21:17 Dose: 6.25 mg Rosuvastatin Calcium (Crestor) 10 mg PO HS [facility] Last Admin: 12/27/17 21:17 Dose: 10 mg Tiotropium [place] (Spiriva) 18 mcg IH RQD GUI - Labs Labs: 12/25/17 07:15 12/25/17 07:15 PT 13.5 SECONDS (9.7-12.2) H 12/19/17 14:06 INR 1.2 12/19/17 14:06 Assessment and Plan (1) 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 Anthony is 42 y/o admitted for SOB,couugh , chest pain found with pleural effusion s/p thoracocentesis as per pt. has DM type 1 @ age of 20 (+) neuropathy , (+) retinopathy , (+) ESRD on HD (-) CAD (+) PVD s/p CVA also with multinodular goiter s/p FNA years ago , benign , not on thyroid meds , denies personal/fhx of thyroid cancer , denies h/o neck irradiation blood glucose log : 200-300 last 190 , no hypoglycemia Allergy NKDA Past medical history: HTN , CHF , CVA Past surgical history: CS , Left forarm graft shunt Psychiatry history: denies Social history : denies smoking , ETOH use or illicit drug use Family history : irrelevant ROS: Constitutional: denies fever, tiredness/weakness. HEENT: denies earache, change in voice .Respiratory: denies cough, (+) sob . CVS :no chest pain, no palpitations . Abdomen: no abdominal pain, no nausea /vomiting, no change bowel movement. 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 Extremities: no edema, no tremors. Skin: no itching, no rash 2014 Physical exam Well-developed AAO x3 , ,NAD VSS HEENT: norm cephalic, atraumatic, no lid lag , no exophthalmos NECK: supple, no palpable lymphadenopathy THYROID: (+) thyromegaly, not tender CHEST: fair air entry, bilateral, CVS: S1,S2 ABDOMEN: bowel sound present, benign, obese, no wide purple striae , no bruises EXTREMITIES: (+) pitting edema, clubbing or cyanosis, no palpable hand tremors Skin: acanthosis nigricans lab: 12/2017 a1c 15.6 , TSH 1.66 2015 a1c 9.7 Assessment sever symptomatic hypoglycemia , resolved uncontrolled type 1 DM with retinopathy & neuropathy ESRD on HD multinodular goiter CHF /pleural effusion plan incease Levemir 12 units @ 8 am continue Novoloin R low dose coverage, no 3 am coverage continue ncrease novoloin R 4 units tid with meals if eat > 60% thyroid us we will follow with you. Status: Acute (2) ESRD (end stage renal disease) on dialysis Status: Acute (3) Diabetes mellitus with ESRD (end-stage renal disease) Status: Acute (4) Goiter Status: Acute (5) Pleural effusion on right Status: Acute
[2017-12-28] MEDS: (Novolin R) Insulin Human Regular 100 units/ml vial SC SCH ×7 (08:30→21:36)
[2017-12-28] MEDS: Fluticasone Nasal 50 mcg/Spray NS SCH (08:38)
[2017-12-28] MEDS: (Lantus) Insulin Glargine, Recombinant SC SCH (10:00)
[2017-12-28] MEDS: Pantoprazole 40 mg EC Tab PO SCH (10:03)
[2017-12-28] MEDS: Promethazine 6.25 MG/5 ML CUP PO SCH ×4 (10:07→21:36)
--- NOTE | 2017-12-28 10:54 | CP.PCM.PN ---
Subjective - Date & Time of Evaluation Date of Evaluation: 12/28/17 Time of Evaluation: 10:51 - Subjective Subjective: pt seen and examined ongoing cough with greenish phlegmn no SOB had HD yesterday afebrile ROS- as per HPI, other than that 10 point ros negative Objective - Vital Signs/Intake and Output Vital Signs (last 24 hours): Temp Pulse Resp BP Pulse Ox 98 F 93 H 20 131/87 96 12/28/17 08:50 12/28/17 08:50 12/28/17 08:50 12/28/17 08:50 12/28/17 08:50 Intake and Output: 12/28/17 12/28/17 06:59 18:59 Intake Total 250 240 Balance 250 240 - Medications Medications: Current Medications Amlodipine Besylate (Norvasc) 5 mg PO DAILY [facility] Last Admin: 12/28/17 10:03 Dose: 5 mg Clonidine HCl (Catapres) 0.1 mg PO TID [facility] Last Admin: 12/28/17 10:04 Dose: 0.1 mg Fluticasone Propionate (Flonase) 1 spr NS RQD [facility] Last Admin: 12/28/17 08:38 Dose: 1 spr Gabapentin (Neurontin) 300 mg PO DAILY [facility] Last Admin: 12/28/17 10:03 Dose: 300 mg Insulin Glargine (Lantus) 12 unit SC PCB [facility] Last Admin: 12/28/17 10:00 Dose: 12 units Insulin Human Regular (Novolin R) 0 unit SC ACHS [facility] PRN Reason: Protocol Last Admin: 12/28/17 08:30 Dose: 3 unit Insulin Human Regular (Novolin R) 4 unit SC TIDPC [facility] Last Admin: 12/28/17 08:36 Dose: 4 unit Losartan Potassium (Cozaar) 100 mg PO DAILY [facility] Last Admin: 12/28/17 10:03 Dose: 100 mg Moxifloxacin HCl (Avelox) 400 mg PO DAILY [facility] Last Admin: 12/28/17 10:03 Dose: 400 mg Oxybutynin Chloride (Ditropan Xl) 5 mg PO DAILY [facility] Last Admin: 12/28/17 10:03 Dose: 5 mg Pantoprazole Sodium (Protonix Ec Tab) 40 mg PO DAILY [facility] Last Admin: 12/28/17 10:03 Dose: 40 mg Promethazine HCl (Phenergan Syrup) 6.25 mg PO QID [facility] Last Admin: 12/28/17 10:07 Dose: 6.25 mg Rosuvastatin Calcium (Crestor) 10 mg PO HS [facility] Last Admin: 12/27/17 21:17 Dose: 10 mg Tiotropium [place] (Spiriva) 18 mcg IH RQD [facility] - Labs Labs: 12/25/17 07:15 12/25/17 07:15 PT 13.5 SECONDS (9.7-12.2) H 12/19/17 14:06 INR 1.2 12/19/17 14:06 - Constitutional Appears: Non-toxic, No Acute Distress - Head Exam Head Exam: ATRAUMATIC, NORMOCEPHALIC - Eye Exam Eye Exam: EOMI, PERRL - ENT Exam ENT Exam: Mucous Membranes Moist - Neck Exam Neck Exam: Full ROM - Respiratory Exam Respiratory Exam: Rhonchi. absent: Wheezes - Cardiovascular Exam Cardiovascular Exam: REGULAR RHYTHM, +S1, +S2 - GI/Abdominal Exam GI & Abdominal Exam: Soft. absent: Distended, Tenderness - Extremities Exam Extremities Exam: absent: Joint Swelling, Pedal Edema - Neurological Exam Neurological Exam: Alert, Awake, Oriented x3 - Psychiatric Exam Psychiatric exam: Normal Affect, Normal Mood - Skin Skin Exam: Dry, Warm Assessment and Plan (1) CHF (congestive heart failure) Status: Acute (2) ESRD (end stage renal disease) on dialysis Status: Acute (3) Anemia Status: Acute (4) Diabetic nephropathy Status: Acute (5) Hypertension Status: Chronic - Assessment and Plan (Free Text) Plan: maintain HD MWF fluid restirciton Abx for pneumonia add bronchodilators
--- NOTE | 2017-12-28 17:41 | CP.PCM.PN ---
Subjective - Date & Time of Evaluation Date of Evaluation: 12/28/17 Time of Evaluation: 17:41 Objective - Vital Signs/Intake and Output Vital Signs (last 24 hours): Temp Pulse Resp BP Pulse Ox 98.3 F 86 20 109/66 99 12/28/17 16:00 12/28/17 16:00 12/28/17 16:00 12/28/17 16:00 12/28/17 16:00 Intake and Output: 12/28/17 12/28/17 06:59 18:59 Intake Total 250 240 Balance 250 240 - Medications Medications: Current Medications Amlodipine Besylate (Norvasc) 5 mg PO DAILY [facility] Last Admin: 12/28/17 10:03 Dose: 5 mg Clonidine HCl (Catapres) 0.1 mg PO TID [facility] Last Admin: 12/28/17 17:08 Dose: Not Given Fluticasone Propionate (Flonase) 1 spr NS RQD [facility] Last Admin: 12/28/17 08:38 Dose: 1 spr Gabapentin (Neurontin) 300 mg PO DAILY [facility] Last Admin: 12/28/17 10:03 Dose: 300 mg Insulin Glargine (Lantus) 12 unit SC PCB [facility] Last Admin: 12/28/17 10:00 Dose: 12 units Insulin Human Regular (Novolin R) 0 unit SC ACHS [facility] PRN Reason: Protocol Last Admin: 12/28/17 17:10 Dose: 5 unit Insulin Human Regular (Novolin R) 4 unit SC TIDPC [facility] Last Admin: 12/28/17 17:10 Dose: 4 unit Losartan Potassium (Cozaar) 100 mg PO DAILY [facility] Last Admin: 12/28/17 10:03 Dose: 100 mg Moxifloxacin HCl (Avelox) 400 mg PO DAILY [facility] Last Admin: 12/28/17 10:03 Dose: 400 mg Oxybutynin Chloride (Ditropan Xl) 5 mg PO DAILY [facility] Last Admin: 12/28/17 10:03 Dose: 5 mg Pantoprazole Sodium (Protonix Ec Tab) 40 mg PO DAILY [facility] Last Admin: 12/28/17 10:03 Dose: 40 mg Promethazine HCl (Phenergan Syrup) 6.25 mg PO QID [facility] Last Admin: 12/28/17 17:09 Dose: 6.25 mg Rosuvastatin Calcium (Crestor) 10 mg PO HS [facility] Last Admin: 12/27/17 21:17 Dose: 10 mg Tiotropium [place] (Spiriva) 18 mcg IH RQD GUI - Labs Labs: 12/25/17 07:15 12/25/17 07:15 PT 13.5 SECONDS (9.7-12.2) H 12/19/17 14:06 INR 1.2 12/19/17 14:06
[2017-12-29] MEDS: Fluticasone Nasal 50 mcg/Spray NS SCH (07:59)
[2017-12-29] MEDS: (Novolin R) Insulin Human Regular 100 units/ml vial SC SCH ×6 (08:17→17:35)
[2017-12-29] MEDS: (Lantus) Insulin Glargine, Recombinant SC SCH (08:36)
[2017-12-29] MEDS: Pantoprazole 40 mg EC Tab PO SCH (09:14)
[2017-12-29] MEDS: Promethazine 6.25 MG/5 ML CUP PO SCH ×4 (09:15→21:18)
--- NOTE | 2017-12-29 16:28 | CP.PCM.PN ---
Subjective - Date & Time of Evaluation Date of Evaluation: 12/29/17 Time of Evaluation: 16:28 Objective - Vital Signs/Intake and Output Vital Signs (last 24 hours): Temp Pulse Resp BP Pulse Ox 98.3 F 82 20 123/78 100 12/29/17 08:04 12/29/17 08:04 12/29/17 08:04 12/29/17 08:04 12/29/17 08:04 Intake and Output: 12/29/17 12/29/17 06:59 18:59 Intake Total 150 360 Balance 150 360 - Medications Medications: Current Medications Amlodipine Besylate (Norvasc) 5 mg PO DAILY [facility] Last Admin: 12/29/17 09:13 Dose: 5 mg Clonidine HCl (Catapres) 0.1 mg PO TID [facility] Last Admin: 12/29/17 13:11 Dose: 0.1 mg Fluticasone Propionate (Flonase) 1 spr NS RQD [facility] Last Admin: 12/29/17 07:59 Dose: 1 spr Gabapentin (Neurontin) 300 mg PO DAILY [facility] Last Admin: 12/29/17 09:14 Dose: 300 mg Insulin Glargine (Lantus) 12 unit SC PCB [facility] Last Admin: 12/29/17 08:36 Dose: 12 units Insulin Human Regular (Novolin R) 0 unit SC ACHS [facility] PRN Reason: Protocol Last Admin: 12/29/17 11:48 Dose: 3 unit Insulin Human Regular (Novolin R) 4 unit SC TIDPC [facility] Last Admin: 12/29/17 12:49 Dose: 4 unit Losartan Potassium (Cozaar) 100 mg PO DAILY [facility] Last Admin: 12/29/17 09:14 Dose: 100 mg Moxifloxacin HCl (Avelox) 400 mg PO DAILY [facility] Last Admin: 12/29/17 09:14 Dose: 400 mg Oxybutynin Chloride (Ditropan Xl) 5 mg PO DAILY [facility] Last Admin: 12/29/17 09:12 Dose: 5 mg Pantoprazole Sodium (Protonix Ec Tab) 40 mg PO DAILY [facility] Last Admin: 12/29/17 09:14 Dose: 40 mg Promethazine HCl (Phenergan Syrup) 6.25 mg PO QID [facility] Last Admin: 12/29/17 13:11 Dose: 6.25 mg Rosuvastatin Calcium (Crestor) 10 mg PO [facility] Last Admin: 12/28/17 21:36 Dose: 10 mg Tiotropium [place] (Spiriva) 18 mcg IH RQD GUI - Labs Labs: 12/25/17 07:15 12/25/17 07:15 PT 13.5 SECONDS (9.7-12.2) H 12/19/17 14:06 INR 1.2 12/19/17 14:06
--- NOTE | 2017-12-29 18:07 | CP.PCM.PN ---
Subjective - Date & Time of Evaluation Date of Evaluation: 12/29/17 Time of Evaluation: 18:04 - Subjective Subjective: IDDM Objective - Vital Signs/Intake and Output Vital Signs (last 24 hours): Temp Pulse Resp BP Pulse Ox 98.5 F 90 20 109/68 96 12/29/17 16:00 12/29/17 16:00 12/29/17 16:00 12/29/17 16:00 12/29/17 16:00 Intake and Output: 12/29/17 12/29/17 06:59 18:59 Intake Total 150 360 Balance 150 360 - Medications Medications: Current Medications Amlodipine Besylate (Norvasc) 5 mg PO DAILY [facility] Last Admin: 12/29/17 09:13 Dose: 5 mg Clonidine HCl (Catapres) 0.1 mg PO TID [facility] Last Admin: 12/29/17 17:35 Dose: Not Given Fluticasone Propionate (Flonase) 1 spr NS RQD [facility] Last Admin: 12/29/17 07:59 Dose: 1 spr Gabapentin (Neurontin) 300 mg PO DAILY [facility] Last Admin: 12/29/17 09:14 Dose: 300 mg Insulin Glargine (Lantus) 14 unit SC PCB [facility] Insulin Human Regular (Novolin R) 0 unit SC ACHS [facility] PRN Reason: Protocol Last Admin: 12/29/17 17:25 Dose: 2 unit Insulin Human Regular (Novolin R) 5 unit SC TIDPC [facility] Losartan Potassium (Cozaar) 100 mg PO DAILY [facility] Last Admin: 12/29/17 09:14 Dose: 100 mg Moxifloxacin HCl (Avelox) 400 mg PO DAILY [facility] Last Admin: 12/29/17 09:14 Dose: 400 mg Oxybutynin Chloride (Ditropan Xl) 5 mg PO DAILY [facility] Last Admin: 12/29/17 09:12 Dose: 5 mg Pantoprazole Sodium (Protonix Ec Tab) 40 mg PO DAILY [facility] Last Admin: 12/29/17 09:14 Dose: 40 mg Promethazine HCl (Phenergan Syrup) 6.25 mg PO QID [facility] Last Admin: 12/29/17 17:35 Dose: 6.25 mg Rosuvastatin Calcium (Crestor) 10 mg PO HS [facility] Last Admin: 12/28/17 21:36 Dose: 10 mg Tiotropium [place] (Spiriva) 18 mcg IH RQD [facility] - Labs Labs: 12/25/17 07:15 12/25/17 07:15 PT 13.5 SECONDS (9.7-12.2) H 12/19/17 14:06 INR 1.2 12/19/17 14:06 Assessment and Plan (1) 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 Anthony is 42 y/o admitted for SOB,couugh , chest pain found with pleural effusion s/p thoracocentesis as per pt. has DM type 1 @ age of 20 (+) neuropathy , (+) retinopathy , (+) ESRD on HD (-) CAD (+) PVD s/p CVA also with multinodular goiter s/p FNA years ago , benign , not on thyroid meds , denies personal/fhx of thyroid cancer , denies h/o neck irradiation blood glucose log : 200-300 , no hypoglycemia Allergy NKDA Past medical history: HTN , CHF , CVA Past surgical history: CS , Left forarm graft shunt Psychiatry history: denies Social history : denies smoking , ETOH use or illicit drug use Family history : irrelevant ROS: Constitutional: denies fever, tiredness/weakness. HEENT: denies earache, change in voice .Respiratory: denies cough, (+) sob . CVS :no chest pain, no palpitations . Abdomen: no abdominal pain, no nausea /vomiting, no change bowel movement. 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 Extremities: no edema, no tremors. Skin: no itching, no rash LMP 2014 Physical exam Well-developed AAO x3 , ,NAD VSS HEENT: norm cephalic, atraumatic, no lid lag , no exophthalmos NECK: supple, no palpable lymphadenopathy THYROID: (+) thyromegaly, not tender CHEST: fair air entry, bilateral, CVS: S1,S2 ABDOMEN: bowel sound present, benign, obese, no wide purple striae , no bruises EXTREMITIES: (+) pitting edema, clubbing or cyanosis, no palpable hand tremors Skin: acanthosis nigricans lab: 12/2017 a1c 15.6 , TSH 1.66 2016 a1c 9.7 Assessment sever symptomatic hypoglycemia , resolved uncontrolled type 1 DM with retinopathy & neuropathy ESRD on HD multinodular goiter CHF /pleural effusion plan incease Levemir 14 units @ 8 am continue Novoloin R low dose coverage, no 3 am coverage continue ncrease novoloin R 5 units tid with meals if eat > 60% thyroid us we will follow with you. Status: Acute (2) ESRD (end stage renal disease) on dialysis Status: Acute (3) Diabetes mellitus with ESRD (end-stage renal disease) Status: Acute (4) Goiter Status: Acute (5) Pleural effusion on right Status: Acute
[2017-12-30] MEDS: (Novolin R) Insulin Human Regular 100 units/ml vial SC SCH ×7 (08:16→21:42)
[2017-12-30] MEDS: Fluticasone Nasal 50 mcg/Spray NS SCH (08:31)
--- NOTE | 2017-12-30 09:59 | US ---
HISTORY: For diagnosis of Goiter TECHNIQUE: Sonographic evaluation of the thyroid gland. COMPARISON: Not available FINDINGS: RIGHT LOBE: Measures 4.1 x 1.8 x 2.2 cm. Heterogeneous echotexture. Normal vascularity. Nodules: None LEFT LOBE: Measures 3.6 x 1.6 x 1.8 cm. Heterogeneous echotexture. Normal vascularity. Nodules: None ISTHMUS: Measures 0.4 cm. Normal echotexture and flow. Nodules: None OTHER FINDINGS: Bilateral cervical lymphadenopathy. IMPRESSION: Heterogeneous gland of normal size. No thyroid mass. Bilateral cervical lymphadenopathy.
[2017-12-30] MEDS: (Lantus) Insulin Glargine, Recombinant SC SCH (11:07)
[2017-12-30] MEDS: Pantoprazole 40 mg EC Tab PO SCH (11:09)
[2017-12-30] MEDS: Promethazine 6.25 MG/5 ML CUP PO SCH ×4 (11:12→21:42)
--- NOTE | 2017-12-30 12:03 | CP.PCM.PN ---
Subjective - Date & Time of Evaluation Date of Evaluation: 12/30/17 Time of Evaluation: 12:03 - Subjective Subjective: seen and examined improved cough. still w/ yellowish sputum no cp/fevers/chills/dizziness/n/v/d/rash/headache Objective - Vital Signs/Intake and Output Vital Signs (last 24 hours): Temp Pulse Resp BP Pulse Ox 98.1 F 95 H 20 125/85 95 12/30/17 08:43 12/30/17 08:43 12/30/17 08:43 12/30/17 08:43 12/30/17 08:43 Intake and Output: 12/30/17 12/30/17 06:59 18:59 Intake Total 150 20 Balance 150 20 - Medications Medications: Current Medications Amlodipine Besylate (Norvasc) 5 mg PO DAILY [facility] Last Admin: 12/30/17 11:10 Dose: Not Given Clonidine HCl (Catapres) 0.1 mg PO TID [facility] Last Admin: 12/30/17 11:10 Dose: Not Given Fluticasone Propionate (Flonase) 1 spr NS RQD [facility] Last Admin: 12/30/17 08:31 Dose: 1 spr Gabapentin (Neurontin) 300 mg PO DAILY [facility] Last Admin: 12/30/17 11:09 Dose: 300 mg Insulin Glargine (Lantus) 14 unit SC PCB [facility] Last Admin: 12/30/17 11:07 Dose: Not Given Insulin Human Regular (Novolin R) 0 unit SC ACHS [facility] PRN Reason: Protocol Last Admin: 12/30/17 08:16 Dose: Not Given Insulin Human Regular (Novolin R) 5 unit SC TIDPC [facility] Last Admin: 12/30/17 11:10 Dose: Not Given Losartan Potassium (Cozaar) 100 mg PO DAILY [facility] Last Admin: 12/30/17 11:10 Dose: Not Given Moxifloxacin HCl (Avelox) 400 mg PO DAILY [facility] Last Admin: 12/30/17 11:09 Dose: 400 mg Oxybutynin Chloride (Ditropan Xl) 5 mg PO DAILY [facility] Last Admin: 12/30/17 11:11 Dose: 5 mg Pantoprazole Sodium (Protonix Ec Tab) 40 mg PO DAILY [facility] Last Admin: 12/30/17 11:09 Dose: 40 mg Promethazine HCl (Phenergan Syrup) 6.25 mg PO QID [facility] Last Admin: 12/30/17 11:12 Dose: 6.25 mg Rosuvastatin Calcium (Crestor) 10 mg PO HS [facility] Last Admin: 12/29/17 21:18 Dose: 10 mg Tiotropium [place] (Spiriva) 18 mcg IH RQD [facility] - Labs Labs: 12/25/17 07:15 12/25/17 07:15 PT 13.5 SECONDS (9.7-12.2) H 12/19/17 14:06 INR 1.2 12/19/17 14:06 - Constitutional Appears: Non-toxic, No Acute Distress - Head Exam Head Exam: NORMAL INSPECTION - Eye Exam Eye Exam: Normal appearance, PERRL - ENT Exam ENT Exam: Mucous Membranes Moist, Normal Exam - Neck Exam Neck Exam: Normal Inspection - Respiratory Exam Respiratory Exam: Decreased Breath Sounds (b/l bases), NORMAL BREATHING PATTERN - Cardiovascular Exam Cardiovascular Exam: REGULAR RHYTHM, RRR - GI/Abdominal Exam GI & Abdominal Exam: Distended, Soft, Normal Bowel Sounds - Extremities Exam Extremities Exam: Normal Inspection (lue avf w/ thrill) - Neurological Exam Neurological Exam: Alert, Awake, Oriented x3 - Psychiatric Exam Psychiatric exam: Normal Affect, Normal Mood - Skin Skin Exam: Normal Color, Warm Assessment and Plan (1) CHF (congestive heart failure) Status: Acute (2) Diabetes mellitus with ESRD (end-stage renal disease) Status: Acute (3) Uncontrolled diabetes mellitus Status: Acute - Assessment and Plan (Free Text) Assessment: maintain HD MWF fluid restriction Abx for pneumonia
--- NOTE | 2017-12-30 14:02 | CP.PCM.PN ---
Subjective - Date & Time of Evaluation Date of Evaluation: 12/30/17 Time of Evaluation: 14:02 Objective - Vital Signs/Intake and Output Vital Signs (last 24 hours): Temp Pulse Resp BP Pulse Ox 98.1 F 95 H 20 125/85 95 12/30/17 08:43 12/30/17 08:43 12/30/17 08:43 12/30/17 08:43 12/30/17 08:43 Intake and Output: 12/30/17 12/30/17 06:59 18:59 Intake Total 150 20 Balance 150 20 - Medications Medications: Current Medications Amlodipine Besylate (Norvasc) 5 mg PO DAILY [facility] Last Admin: 12/30/17 11:10 Dose: Not Given Clonidine HCl (Catapres) 0.1 mg PO TID [facility] Last Admin: 12/30/17 13:49 Dose: Not Given Fluticasone Propionate (Flonase) 1 spr NS RQD [facility] Last Admin: 12/30/17 08:31 Dose: 1 spr Gabapentin (Neurontin) 300 mg PO DAILY [facility] Last Admin: 12/30/17 11:09 Dose: 300 mg Insulin Glargine (Lantus) 14 unit SC PCB [facility] Last Admin: 12/30/17 11:07 Dose: Not Given Insulin Human Regular (Novolin R) 0 unit SC ACHS [facility] PRN Reason: Protocol Last Admin: 12/30/17 12:30 Dose: 2 unit Insulin Human Regular (Novolin R) 5 unit SC TIDPC [facility] Last Admin: 12/30/17 13:49 Dose: Not Given Losartan Potassium (Cozaar) 100 mg PO DAILY [facility] Last Admin: 12/30/17 11:10 Dose: Not Given Moxifloxacin HCl (Avelox) 400 mg PO DAILY [facility] Last Admin: 12/30/17 11:09 Dose: 400 mg Oxybutynin Chloride (Ditropan Xl) 5 mg PO DAILY [facility] Last Admin: 12/30/17 11:11 Dose: 5 mg Pantoprazole Sodium (Protonix Ec Tab) 40 mg PO DAILY [facility] Last Admin: 12/30/17 11:09 Dose: 40 mg Promethazine HCl (Phenergan Syrup) 6.25 mg PO QID [facility] Last Admin: 12/30/17 13:50 Dose: Not Given Rosuvastatin Calcium (Crestor) 10 mg PO HS [facility] Last Admin: 12/29/17 21:18 Dose: 10 mg Tiotropium [place] (Spiriva) 18 mcg IH RQD [facility] - Labs Labs: 12/25/17 07:15 12/25/17 07:15 PT 13.5 SECONDS (9.7-12.2) H 12/19/17 14:06 INR 1.2 12/19/17 14:06
[2017-12-30 14:18] LABS: HEMOGLOBIN 10.1 g/dL (11.0-16.0); MEAN CELL VOLUME 86.7 fL (81.0-99.0); MEAN CORPUSCULAR HEMOGLOBIN 27.9 pg (27.0-31.0); MEAN CORPUSCULAR HGB CONC 32.2 g/dL (33.0-37.0); MEAN PLATELET VOLUME 9.7 fL (7.2-11.7); RBC 3.63 Mil/uL (3.80-5.20); RED CELL DISTRIBUTION WIDTH 15.9 % (11.5-14.5); WHITE BLOOD COUNT 8.1 K/uL (4.8-10.8)
[2017-12-31] MEDS: (Novolin R) Insulin Human Regular 100 units/ml vial SC SCH ×7 (08:07→21:47)
[2017-12-31] MEDS: Fluticasone Nasal 50 mcg/Spray NS SCH (08:09)
[2017-12-31] MEDS: (Lantus) Insulin Glargine, Recombinant SC SCH (09:39)
[2017-12-31] MEDS: Pantoprazole 40 mg EC Tab PO SCH (09:40)
--- NOTE | 2017-12-31 10:37 | CP.PCM.PN ---
Subjective - Date & Time of Evaluation Date of Evaluation: 12/31/17 Time of Evaluation: 10:37 - Subjective Subjective: seen and examined c/o rt foot pain, no hx of gout breathing improved., still w/ cough no fevers chills dizziness n/v/d Objective - Vital Signs/Intake and Output Vital Signs (last 24 hours): Temp Pulse Resp BP Pulse Ox 98.6 F 98 H 20 128/74 96 12/31/17 08:21 12/31/17 08:21 12/31/17 08:21 12/31/17 08:21 12/31/17 08:21 Intake and Output: 12/31/17 12/31/17 06:59 18:59 Intake Total 0 Output Total 0 Balance 0 - Medications Medications: Current Medications Amlodipine Besylate (Norvasc) 5 mg PO DAILY [facility] Last Admin: 12/31/17 09:40 Dose: 5 mg Clonidine HCl (Catapres) 0.1 mg PO TID [facility] Last Admin: 12/31/17 09:40 Dose: 0.1 mg Fluticasone Propionate (Flonase) 1 spr NS RQD [facility] Last Admin: 12/31/17 08:09 Dose: 1 spr Gabapentin (Neurontin) 300 mg PO DAILY [facility] Last Admin: 12/31/17 09:40 Dose: 300 mg Insulin Glargine (Lantus) 14 unit SC PCB [facility] Last Admin: 12/31/17 09:39 Dose: 14 units Insulin Human Regular (Novolin R) 0 unit SC ACHS [facility] PRN Reason: Protocol Last Admin: 12/31/17 08:07 Dose: 4 unit Insulin Human Regular (Novolin R) 5 unit SC TIDPC [facility] Last Admin: 12/31/17 09:38 Dose: 5 unit Losartan Potassium (Cozaar) 100 mg PO DAILY [facility] Last Admin: 12/31/17 09:40 Dose: 100 mg Moxifloxacin HCl (Avelox) 400 mg PO DAILY [facility] Last Admin: 12/31/17 09:40 Dose: 400 mg Oxybutynin Chloride (Ditropan Xl) 5 mg PO DAILY [facility] Last Admin: 12/31/17 09:43 Dose: 5 mg Pantoprazole Sodium (Protonix Ec Tab) 40 mg PO DAILY [facility] Last Admin: 12/31/17 09:40 Dose: 40 mg Promethazine HCl (Phenergan Syrup) 6.25 mg PO QID [facility] Last Admin: 12/30/17 21:42 Dose: 6.25 mg Rosuvastatin Calcium (Crestor) 10 mg PO HS [facility] Last Admin: 12/30/17 21:41 Dose: 10 mg Tiotropium [place] (Spiriva) 18 mcg IH RQD [facility] - Labs Labs: 12/30/17 14:13 12/30/17 14:13 PT 13.5 SECONDS (9.7-12.2) H 12/19/17 14:06 INR 1.2 12/19/17 14:06 - Constitutional Appears: No Acute Distress, Older Than Stated Age, Chronically Ill - Head Exam Head Exam: NORMAL INSPECTION - Eye Exam Eye Exam: Normal appearance, PERRL Pupil Exam: PERRL - ENT Exam ENT Exam: Mucous Membranes Moist, Normal Exam - Neck Exam Neck Exam: Full ROM, Normal Inspection - Respiratory Exam Respiratory Exam: Decreased Breath Sounds, NORMAL BREATHING PATTERN - Cardiovascular Exam Cardiovascular Exam: REGULAR RHYTHM, RRR - GI/Abdominal Exam GI & Abdominal Exam: Distended, Soft - Extremities Exam Extremities Exam: Normal Inspection (rt foot ttp) - Neurological Exam Neurological Exam: Alert, Awake, Oriented x3 - Psychiatric Exam Psychiatric exam: Normal Affect, Normal Mood - Skin Skin Exam: Dry, Intact, Warm Assessment and Plan (1) CHF (congestive heart failure) Status: Acute (2) Diabetes mellitus with ESRD (end-stage renal disease) Status: Acute (3) Uncontrolled diabetes mellitus Status: Acute - Assessment and Plan (Free Text) Assessment: maintain HD MWF fluid restriction Abx for pneumonia
[2017-12-31] MEDS: Promethazine 6.25 MG/5 ML CUP PO SCH ×4 (11:04→21:49)
--- NOTE | 2017-12-31 13:26 | CP.PCM.PN ---
Subjective - Date & Time of Evaluation Date of Evaluation: 12/31/17 Time of Evaluation: 13:26 Objective - Vital Signs/Intake and Output Vital Signs (last 24 hours): Temp Pulse Resp BP Pulse Ox 98.6 F 98 H 20 128/74 96 12/31/17 08:21 12/31/17 08:21 12/31/17 08:21 12/31/17 08:21 12/31/17 08:21 Intake and Output: 12/31/17 12/31/17 06:59 18:59 Intake Total 0 Output Total 0 Balance 0 - Medications Medications: Current Medications Amlodipine Besylate (Norvasc) 5 mg PO DAILY [facility] Last Admin: 12/31/17 09:40 Dose: 5 mg Clonidine HCl (Catapres) 0.1 mg PO TID [facility] Last Admin: 12/31/17 09:40 Dose: 0.1 mg Fluticasone Propionate (Flonase) 1 spr NS RQD [facility] Last Admin: 12/31/17 08:09 Dose: 1 spr Gabapentin (Neurontin) 300 mg PO DAILY [facility] Last Admin: 12/31/17 09:40 Dose: 300 mg Insulin Glargine (Lantus) 14 unit SC PCB [facility] Last Admin: 12/31/17 09:39 Dose: 14 units Insulin Human Regular (Novolin R) 0 unit SC ACHS [facility] PRN Reason: Protocol Last Admin: 12/31/17 11:46 Dose: 4 unit Insulin Human Regular (Novolin R) 5 unit SC TIDPC [facility] Last Admin: 12/31/17 09:38 Dose: 5 unit Losartan Potassium (Cozaar) 100 mg PO DAILY [facility] Last Admin: 12/31/17 09:40 Dose: 100 mg Moxifloxacin HCl (Avelox) 400 mg PO DAILY [facility] Last Admin: 12/31/17 09:40 Dose: 400 mg Oxybutynin Chloride (Ditropan Xl) 5 mg PO DAILY [facility] Last Admin: 12/31/17 09:43 Dose: 5 mg Pantoprazole Sodium (Protonix Ec Tab) 40 mg PO DAILY [facility] Last Admin: 12/31/17 09:40 Dose: 40 mg Promethazine HCl (Phenergan Syrup) 6.25 mg PO QID [facility] Last Admin: 12/31/17 11:04 Dose: 6.25 mg Rosuvastatin Calcium (Crestor) 10 mg PO [facility] Last Admin: 12/30/17 21:41 Dose: 10 mg Tiotropium [place] (Spiriva) 18 mcg IH RQD [facility] - Labs Labs: 12/30/17 14:13 12/30/17 14:13 PT 13.5 SECONDS (9.7-12.2) H 12/19/17 14:06 INR 1.2 12/19/17 14:06
--- NOTE | 2017-12-31 20:51 | CP.PCM.PN ---
Subjective - Date & Time of Evaluation Date of Evaluation: 12/31/17 Time of Evaluation: 20:48 - Subjective Subjective: type 1 DM Objective - Vital Signs/Intake and Output Vital Signs (last 24 hours): Temp Pulse Resp BP Pulse Ox 98.5 F 92 H 20 121/70 100 12/31/17 15:15 12/31/17 15:15 12/31/17 15:15 12/31/17 15:15 12/31/17 15:15 Intake and Output: 12/31/17 01/01/18 18:59 06:59 Intake Total 500 Balance 500 - Medications Medications: Current Medications Amlodipine Besylate (Norvasc) 5 mg PO DAILY [facility] Last Admin: 12/31/17 09:40 Dose: 5 mg Clonidine HCl (Catapres) 0.1 mg PO TID [facility] Last Admin: 12/31/17 17:30 Dose: 0.1 mg Fluticasone Propionate (Flonase) 1 spr NS RQD [facility] Last Admin: 12/31/17 08:09 Dose: 1 spr Gabapentin (Neurontin) 300 mg PO DAILY [facility] Last Admin: 12/31/17 09:40 Dose: 300 mg Insulin Glargine (Lantus) 16 unit SC PCB [facility] Insulin Human Regular (Novolin R) 0 unit SC ACHS [facility] PRN Reason: Protocol Last Admin: 12/31/17 17:29 Dose: 3 unit Insulin Human Regular (Novolin R) 7 unit SC TIDPC [facility] Losartan Potassium (Cozaar) 100 mg PO DAILY [facility] Last Admin: 12/31/17 09:40 Dose: 100 mg Moxifloxacin HCl (Avelox) 400 mg PO DAILY [facility] Last Admin: 12/31/17 09:40 Dose: 400 mg Oxybutynin Chloride (Ditropan Xl) 5 mg PO DAILY [facility] Last Admin: 12/31/17 09:43 Dose: 5 mg Pantoprazole Sodium (Protonix Ec Tab) 40 mg PO DAILY [facility] Last Admin: 12/31/17 09:40 Dose: 40 mg Promethazine HCl (Phenergan Syrup) 6.25 mg PO QID [facility] Last Admin: 12/31/17 17:30 Dose: 6.25 mg Rosuvastatin Calcium (Crestor) 10 mg PO HS [facility] Last Admin: 12/30/17 21:41 Dose: 10 mg Tiotropium [place] (Spiriva) 18 mcg IH RQD [facility] - Labs Labs: 12/30/17 14:13 12/30/17 14:13 PT 13.5 SECONDS (9.7-12.2) H 12/19/17 14:06 INR 1.2 12/19/17 14:06 Assessment and Plan (1) 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 Anthony is 42 y/o admitted for SOB,couugh , chest pain found with pleural effusion s/p thoracocentesis as per pt. has DM type 1 @ age of 20 (+) neuropathy , (+) retinopathy , (+) ESRD on HD (-) CAD (+) PVD s/p CVA also with multinodular goiter s/p FNA years ago , benign , not on thyroid meds , denies personal/fhx of thyroid cancer , denies h/o neck irradiation blood glucose log : 200-300 , no hypoglycemia Allergy NKDA Past medical history: HTN , CHF , CVA Past surgical history: CS , Left forarm graft shunt Psychiatry history: denies Social history : denies smoking , ETOH use or illicit drug use Family history : irrelevant ROS: Constitutional: denies fever, tiredness/weakness. HEENT: denies earache, change in voice .Respiratory: denies cough, (+) sob . CVS :no chest pain, no palpitations . Abdomen: no abdominal pain, no nausea /vomiting, no change bowel movement. 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 Extremities: no edema, no tremors. Skin: no itching, no rash LMP 2014 Physical exam Well-developed AAO x3 , ,NAD VSS HEENT: norm cephalic, atraumatic, no lid lag , no exophthalmos NECK: supple, no palpable lymphadenopathy THYROID: (+) thyromegaly, not tender CHEST: fair air entry, bilateral, CVS: S1,S2 ABDOMEN: bowel sound present, benign, obese, no wide purple striae , no bruises EXTREMITIES: (+) pitting edema, clubbing or cyanosis, no palpable hand tremors Skin: acanthosis nigricans lab: 12/2017 thyroid us : no nodules 12/2017 a1c 15.6 , TSH 1.66 2015 a1c 9.7 Assessment sever symptomatic hypoglycemia , resolved uncontrolled type 1 DM with retinopathy & neuropathy ESRD on HD multinodular goiter CHF /pleural effusion plan incease Levemir 16 units @ 8 am continue Novoloin R low dose coverage, no 3 am coverage increase novoloin R 7 units tid with meals if eat > 60% we will follow with you. Status: Acute (2) ESRD (end stage renal disease) on dialysis Status: Acute (3) Diabetes mellitus with ESRD (end-stage renal disease) Status: Acute (4) Goiter Status: Acute (5) Pleural effusion on right Status: Acute
[2018-01-01] MEDS: (Novolin R) Insulin Human Regular 100 units/ml vial SC SCH ×7 (08:06→21:53)
[2018-01-01] MEDS: Fluticasone Nasal 50 mcg/Spray NS SCH (08:07)
[2018-01-01] MEDS ORDERED: (Lantus) Insulin Glargine, Recombinant SC SCH (09:00)
[2018-01-01] MEDS: Promethazine 6.25 MG/5 ML CUP PO SCH ×4 (10:32→21:53)
[2018-01-01] MEDS: Pantoprazole 40 mg EC Tab PO SCH (10:32)
--- NOTE | 2018-01-01 11:54 | CP.PCM.PN ---
Subjective - Date & Time of Evaluation Date of Evaluation: 01/01/18 Time of Evaluation: 11:54 - Subjective Subjective: alert, awake, has sob with exertion. Objective - Vital Signs/Intake and Output Vital Signs (last 24 hours): Temp Pulse Resp BP Pulse Ox 97.8 F 91 H 17 147/92 H 97 01/01/18 08:55 01/01/18 08:55 01/01/18 08:55 01/01/18 10:55 01/01/18 08:55 Intake and Output: 01/01/18 01/01/18 06:59 18:59 Intake Total 4803 Balance 4803 - Medications Medications: Current Medications Amlodipine Besylate (Norvasc) 5 mg PO DAILY [facility] Last Admin: 01/01/18 10:31 Dose: Not Given Clonidine HCl (Catapres) 0.1 mg PO TID [facility] Last Admin: 01/01/18 10:31 Dose: Not Given Fluticasone Propionate (Flonase) 1 spr NS RQD [facility] Last Admin: 01/01/18 08:07 Dose: 1 spr Gabapentin (Neurontin) 300 mg PO DAILY [facility] Last Admin: 01/01/18 10:31 Dose: Not Given Insulin Glargine (Lantus) 16 unit SC PCB [facility] Last Admin: 01/01/18 10:31 Dose: Not Given Insulin Human Regular (Novolin R) 0 unit SC ACHS [facility] PRN Reason: Protocol Last Admin: 01/01/18 08:06 Dose: 3 unit Insulin Human Regular (Novolin R) 7 unit SC TIDPC [facility] Last Admin: 01/01/18 10:32 Dose: Not Given Losartan Potassium (Cozaar) 100 mg PO DAILY [facility] Last Admin: 01/01/18 10:31 Dose: Not Given Moxifloxacin HCl (Avelox) 400 mg PO DAILY [facility] Last Admin: 01/01/18 10:31 Dose: Not Given Oxybutynin Chloride (Ditropan Xl) 5 mg PO DAILY [facility] Last Admin: 01/01/18 10:31 Dose: Not Given Pantoprazole Sodium (Protonix Ec Tab) 40 mg PO DAILY [facility] Last Admin: 01/01/18 10:32 Dose: Not Given Promethazine HCl (Phenergan Syrup) 6.25 mg PO QID [facility] Last Admin: 01/01/18 10:32 Dose: Not Given Rosuvastatin Calcium (Crestor) 10 mg PO HS [facility] Last Admin: 12/31/17 21:46 Dose: 10 mg Tiotropium [place] (Spiriva) 18 mcg IH RQD [facility] - Labs Labs: 12/30/17 14:13 12/30/17 14:13 PT 13.5 SECONDS (9.7-12.2) H 12/19/17 14:06 INR 1.2 12/19/17 14:06 Assessment and Plan - Assessment and Plan (Free Text) Assessment: 42 year old female admitted with pneumonia, fluid overload, end stage renal disease, improving well. Seen and examined. Alert and orientedx3, oxygen saturation down to 84% with ambulation and is back to 94% on 2 liter oxygen via nasal canula. Discussed with DR Walker, plan to discharge home on antibiotics. Need home oxygen to maintain on > 90% saturation to prevent freqent re-admissions. To continue with HD as scheduled.
--- NOTE | 2018-01-01 11:57 | CP.PCM.PN ---
Subjective - Date & Time of Evaluation Date of Evaluation: 01/01/18 Time of Evaluation: 11:55 - Subjective Subjective: seen on hd still short of breath denies any n/v/d/f/c/cp/dizziness Objective - Vital Signs/Intake and Output Vital Signs (last 24 hours): Temp Pulse Resp BP Pulse Ox 97.8 F 91 H 17 147/92 H 97 01/01/18 08:55 01/01/18 08:55 01/01/18 08:55 01/01/18 10:55 01/01/18 08:55 Intake and Output: 01/01/18 01/01/18 06:59 18:59 Intake Total 4803 Balance 4803 - Medications Medications: Current Medications Amlodipine Besylate (Norvasc) 5 mg PO DAILY [facility] Last Admin: 01/01/18 10:31 Dose: Not Given Clonidine HCl (Catapres) 0.1 mg PO TID [facility] Last Admin: 01/01/18 10:31 Dose: Not Given Fluticasone Propionate (Flonase) 1 spr NS RQD [facility] Last Admin: 01/01/18 08:07 Dose: 1 spr Gabapentin (Neurontin) 300 mg PO DAILY [facility] Last Admin: 01/01/18 10:31 Dose: Not Given Insulin Glargine (Lantus) 16 unit SC PCB [facility] Last Admin: 01/01/18 10:31 Dose: Not Given Insulin Human Regular (Novolin R) 0 unit SC ACHS [facility] PRN Reason: Protocol Last Admin: 01/01/18 08:06 Dose: 3 unit Insulin Human Regular (Novolin R) 7 unit SC TIDPC [facility] Last Admin: 01/01/18 10:32 Dose: Not Given Losartan Potassium (Cozaar) 100 mg PO DAILY [facility] Last Admin: 01/01/18 10:31 Dose: Not Given Moxifloxacin HCl (Avelox) 400 mg PO DAILY [facility] Last Admin: 01/01/18 10:31 Dose: Not Given Oxybutynin Chloride (Ditropan Xl) 5 mg PO DAILY [facility] Last Admin: 01/01/18 10:31 Dose: Not Given Pantoprazole Sodium (Protonix Ec Tab) 40 mg PO DAILY [facility] Last Admin: 01/01/18 10:32 Dose: Not Given Promethazine HCl (Phenergan Syrup) 6.25 mg PO QID [facility] Last Admin: 01/01/18 10:32 Dose: Not Given Rosuvastatin Calcium (Crestor) 10 mg PO HS [facility] Last Admin: 12/31/17 21:46 Dose: 10 mg Tiotropium [place] (Spiriva) 18 mcg IH RQD [facility] - Labs Labs: 12/30/17 14:13 12/30/17 14:13 PT 13.5 SECONDS (9.7-12.2) H 12/19/17 14:06 INR 1.2 12/19/17 14:06 - Constitutional Appears: Non-toxic, No Acute Distress, Chronically Ill - Head Exam Head Exam: NORMAL INSPECTION - Eye Exam Eye Exam: Normal appearance, PERRL - ENT Exam ENT Exam: Mucous Membranes Moist, Normal Exam - Neck Exam Neck Exam: Full ROM, Normal Inspection - Respiratory Exam Respiratory Exam: Decreased Breath Sounds, Wheezes - Cardiovascular Exam Cardiovascular Exam: REGULAR RHYTHM, RRR - GI/Abdominal Exam GI & Abdominal Exam: Soft, Normal Bowel Sounds - Extremities Exam Extremities Exam: Full ROM, Normal Inspection - Neurological Exam Neurological Exam: Alert, Awake, Oriented x3 - Psychiatric Exam Psychiatric exam: Normal Affect, Normal Mood - Skin Skin Exam: Dry, Intact Assessment and Plan (1) CHF (congestive heart failure) Status: Acute (2) Diabetes mellitus with ESRD (end-stage renal disease) Status: Acute (3) Uncontrolled diabetes mellitus Status: Acute - Assessment and Plan (Free Text) Assessment: maintain hd mwf bronchodilators?nebulizer
--- NOTE | 2018-01-01 17:15 | CP.PCM.PN ---
Subjective - Date & Time of Evaluation Date of Evaluation: 01/01/18 Time of Evaluation: 17:15 Objective - Vital Signs/Intake and Output Vital Signs (last 24 hours): Temp Pulse Resp BP Pulse Ox 97.5 F L 95 H 17 154/96 H 100 01/01/18 12:25 01/01/18 12:25 01/01/18 12:25 01/01/18 12:25 01/01/18 12:25 Intake and Output: 01/01/18 01/01/18 06:59 18:59 Intake Total 4803 450 Balance 4803 450 - Medications Medications: Current Medications Albuterol/Ipratropium (Duoneb 3 Mg/0.5 Mg (3 Ml) Ud) 3 ml INH RQ6 [facility] Amlodipine Besylate (Norvasc) 5 mg PO DAILY [facility] Last Admin: 01/01/18 12:47 Dose: 5 mg Clonidine HCl (Catapres) 0.1 mg PO TID [facility] Last Admin: 01/01/18 10:31 Dose: Not Given Fluticasone Propionate (Flonase) 1 spr NS RQD [facility] Last Admin: 01/01/18 08:07 Dose: 1 spr Gabapentin (Neurontin) 300 mg PO DAILY [facility] Last Admin: 01/01/18 10:31 Dose: Not Given Insulin Glargine (Lantus) 16 unit SC PCB [facility] Last Admin: 01/01/18 10:31 Dose: Not Given Insulin Human Regular (Novolin R) 0 unit SC ACHS [facility] PRN Reason: Protocol Last Admin: 01/01/18 12:11 Dose: Not Given Insulin Human Regular (Novolin R) 7 unit SC TIDPC [facility] Last Admin: 01/01/18 12:48 Dose: 7 unit Losartan Potassium (Cozaar) 100 mg PO DAILY [facility] Last Admin: 01/01/18 12:50 Dose: 100 mg Moxifloxacin HCl (Avelox) 400 mg PO DAILY [facility] Last Admin: 01/01/18 14:16 Dose: 400 mg Oxybutynin Chloride (Ditropan Xl) 5 mg PO DAILY [facility] Last Admin: 01/01/18 10:31 Dose: Not Given Pantoprazole Sodium (Protonix Ec Tab) 40 mg PO DAILY [facility] Last Admin: 01/01/18 10:32 Dose: Not Given Promethazine HCl (Phenergan Syrup) 6.25 mg PO QID [facility] Last Admin: 01/01/18 14:16 Dose: 6.25 mg Rosuvastatin Calcium (Crestor) 10 mg PO HS [facility] Last Admin: 12/31/17 21:46 Dose: 10 mg Tiotropium [place] (Spiriva) 18 mcg IH RQD [facility] - Labs Labs: 12/30/17 14:13 12/30/17 14:13 PT 13.5 SECONDS (9.7-12.2) H 12/19/17 14:06 INR 1.2 12/19/17 14:06
[2018-01-01] MEDS ORDERED: (Novolin R) Insulin Human Regular 100 units/ml vial SC SCH (22:11)
--- NOTE | 2018-01-01 22:15 | CP.PCM.PN ---
Subjective - Date & Time of Evaluation Date of Evaluation: 01/01/18 Time of Evaluation: 22:14 - Subjective Subjective: diabetes Objective - Vital Signs/Intake and Output Vital Signs (last 24 hours): Temp Pulse Resp BP Pulse Ox 98.2 F 102 H 20 145/81 95 01/01/18 16:10 01/01/18 15:30 01/01/18 15:30 01/01/18 15:30 01/01/18 15:30 Intake and Output: 01/01/18 01/02/18 18:59 06:59 Intake Total 450 Balance 450 - Medications Medications: Current Medications Albuterol/Ipratropium (Duoneb 3 Mg/0.5 Mg (3 Ml) Ud) 3 ml INH RQ6 [facility] Amlodipine Besylate (Norvasc) 5 mg PO DAILY [facility] Last Admin: 01/01/18 12:47 Dose: 5 mg Clonidine HCl (Catapres) 0.1 mg PO TID [facility] Last Admin: 01/01/18 17:25 Dose: 0.1 mg Fluticasone Propionate (Flonase) 1 spr NS RQD [facility] Last Admin: 01/01/18 08:07 Dose: 1 spr Gabapentin (Neurontin) 300 mg PO DAILY [facility] Last Admin: 01/01/18 10:31 Dose: Not Given Insulin Glargine (Lantus) 18 unit SC PCB [facility] Insulin Human Regular (Novolin R) 0 unit SC ACHS [facility] PRN Reason: Protocol Last Admin: 01/01/18 21:53 Dose: Not Given Insulin Human Regular (Novolin R) 9 unit SC TIDPC [facility] Losartan Potassium (Cozaar) 100 mg PO DAILY [facility] Last Admin: 01/01/18 12:50 Dose: 100 mg Moxifloxacin HCl (Avelox) 400 mg PO DAILY [facility] Last Admin: 01/01/18 14:16 Dose: 400 mg Oxybutynin Chloride (Ditropan Xl) 5 mg PO DAILY [facility] Last Admin: 01/01/18 10:31 Dose: Not Given Pantoprazole Sodium (Protonix Ec Tab) 40 mg PO DAILY [facility] Last Admin: 01/01/18 10:32 Dose: Not Given Promethazine HCl (Phenergan Syrup) 6.25 mg PO QID [facility] Last Admin: 01/01/18 21:53 Dose: 6.25 mg Rosuvastatin Calcium (Crestor) 10 mg PO HS [facility] Last Admin: 01/01/18 21:53 Dose: 10 mg Tiotropium [place] (Spiriva) 18 mcg IH RQD [facility] - Labs Labs: 12/30/17 14:13 12/30/17 14:13 PT 13.5 SECONDS (9.7-12.2) H 12/19/17 14:06 INR 1.2 12/19/17 14:06 Assessment and Plan (1) 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 Anthony is 42 y/o admitted for SOB,couugh , chest pain found with pleural effusion s/p thoracocentesis as per pt. has DM type 1 @ age of 20 (+) neuropathy , (+) retinopathy , (+) ESRD on HD (-) CAD (+) PVD s/p CVA also with multinodular goiter s/p FNA years ago , benign , not on thyroid meds , denies personal/fhx of thyroid cancer , denies h/o neck irradiation blood glucose log : 200-300 , one 170 no hypoglycemia Allergy NKDA Past medical history: HTN , CHF , CVA Past surgical history: CS , Left forarm graft shunt Psychiatry history: denies Social history : denies smoking , ETOH use or illicit drug use Family history : irrelevant ROS: Constitutional: denies fever, tiredness/weakness. HEENT: denies earache, change in voice .Respiratory: denies cough, (+) sob . CVS :no chest pain, no palpitations . Abdomen: no abdominal pain, no nausea /vomiting, no change bowel movement. 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 Extremities: no edema, no tremors. Skin: no itching, no rash LMP 2014 Physical exam Well-developed AAO x3 , ,NAD VSS HEENT: norm cephalic, atraumatic, no lid lag , no exophthalmos NECK: supple, no palpable lymphadenopathy THYROID: (+) thyromegaly, not tender CHEST: fair air entry, bilateral, CVS: S1,S2 ABDOMEN: bowel sound present, benign, obese, no wide purple striae , no bruises EXTREMITIES: (+) pitting edema, clubbing or cyanosis, no palpable hand tremors Skin: acanthosis nigricans lab: 12/2017 thyroid us : no nodules 12/2017 a1c 15.6 , TSH 1.66 2015 a1c 9.7 Assessment sever symptomatic hypoglycemia , resolved uncontrolled type 1 DM with retinopathy & neuropathy ESRD on HD multinodular goiter CHF /pleural effusion plan incease Levemir 18 units @ 8 am continue Novoloin R low dose coverage, no 3 am coverage increase novoloin R 9 units tid with meals if eat > 60% we will follow with you. Status: Acute (2) ESRD (end stage renal disease) on dialysis Status: Acute (3) Diabetes mellitus with ESRD (end-stage renal disease) Status: Acute (4) Goiter Status: Acute (5) Pleural effusion on right Status: Acute
[2018-01-02] MEDS: Albuterol-Ipratrop 3 mg / 0.5 (3 ml) UD INH SCH ×4 (01:50→20:55)
[2018-01-02] MEDS: (Novolin R) Insulin Human Regular 100 units/ml vial SC SCH ×6 (08:21→21:46)
[2018-01-02] MEDS: Fluticasone Nasal 50 mcg/Spray NS SCH (08:22)
[2018-01-02] MEDS ORDERED: (Lantus) Insulin Glargine, Recombinant SC SCH (09:00)
[2018-01-02] MEDS: Pantoprazole 40 mg EC Tab PO SCH (10:22)
[2018-01-02] MEDS: Promethazine 6.25 MG/5 ML CUP PO SCH ×3 (10:24→18:16)
--- NOTE | 2018-01-02 11:54 | CP.PCM.PN ---
Subjective - Date & Time of Evaluation Date of Evaluation: 01/02/18 Time of Evaluation: 11:53 - Subjective Subjective: pt seen and examined high blood sugars noted breathing slightly improved, still requiring supplemental O2 denies any cp/dizziness/palpitations/f/c/n/v/d +cough Objective - Vital Signs/Intake and Output Vital Signs (last 24 hours): Temp Pulse Resp BP Pulse Ox 98.3 F 101 H 20 134/85 100 01/02/18 08:26 01/02/18 08:26 01/02/18 08:26 01/02/18 08:26 01/02/18 08:26 Intake and Output: 01/02/18 01/02/18 06:59 18:59 Intake Total 120 Balance 120 - Medications Medications: Current Medications Albuterol/Ipratropium (Duoneb 3 Mg/0.5 Mg (3 Ml) Ud) 3 ml INH RQ6 [facility] Last Admin: 01/02/18 08:22 Dose: 3 ml Amlodipine Besylate (Norvasc) 5 mg PO DAILY [facility] Last Admin: 01/02/18 10:23 Dose: 5 mg Clonidine HCl (Catapres) 0.1 mg PO TID [facility] Last Admin: 01/02/18 10:23 Dose: 0.1 mg Fluticasone Propionate (Flonase) 1 spr NS RQD [facility] Last Admin: 01/02/18 08:22 Dose: 1 spr Gabapentin (Neurontin) 300 mg PO DAILY [facility] Last Admin: 01/02/18 10:23 Dose: 300 mg Insulin Glargine (Lantus) 18 unit SC PCB [facility] Last Admin: 01/02/18 10:22 Dose: 18 units Insulin Human Regular (Novolin R) 0 unit SC ACHS [facility] PRN Reason: Protocol Last Admin: 01/02/18 08:21 Dose: 6 unit Insulin Human Regular (Novolin R) 9 unit SC TIDPC [facility] Last Admin: 01/02/18 08:22 Dose: 9 unit Losartan Potassium (Cozaar) 100 mg PO DAILY [facility] Last Admin: 01/02/18 10:23 Dose: 100 mg Moxifloxacin HCl (Avelox) 400 mg PO DAILY [facility] Last Admin: 01/02/18 10:22 Dose: 400 mg Oxybutynin Chloride (Ditropan Xl) 5 mg PO DAILY [facility] Last Admin: 01/02/18 10:23 Dose: 5 mg Pantoprazole Sodium (Protonix Ec Tab) 40 mg PO DAILY [facility] Last Admin: 01/02/18 10:22 Dose: 40 mg Promethazine HCl (Phenergan Syrup) 6.25 mg PO QID [facility] Last Admin: 01/02/18 10:24 Dose: 6.25 mg Rosuvastatin Calcium (Crestor) 10 mg PO HS [facility] Last Admin: 01/01/18 21:53 Dose: 10 mg Tiotropium [place] (Spiriva) 18 mcg IH RQD [facility] - Labs Labs: 12/30/17 14:13 12/30/17 14:13 PT 13.5 SECONDS (9.7-12.2) H 12/19/17 14:06 INR 1.2 12/19/17 14:06 - Constitutional Appears: Non-toxic, No Acute Distress, Chronically Ill - Head Exam Head Exam: NORMAL INSPECTION - Eye Exam Eye Exam: Normal appearance, PERRL - ENT Exam ENT Exam: Mucous Membranes Moist, Normal Exam - Neck Exam Neck Exam: Normal Inspection - Respiratory Exam Respiratory Exam: Rhonchi, Wheezes (expiratory wheexing diffuse), NORMAL BREATHING PATTERN - Cardiovascular Exam Cardiovascular Exam: REGULAR RHYTHM, RRR - GI/Abdominal Exam GI & Abdominal Exam: Distended, Soft, Normal Bowel Sounds - Extremities Exam Extremities Exam: Full ROM, Normal Inspection Assessment and Plan (1) CHF (congestive heart failure) Status: Acute (2) Diabetes mellitus with ESRD (end-stage renal disease) Status: Acute (3) Uncontrolled diabetes mellitus Status: Acute (4) Pneumonia Status: Acute - Assessment and Plan (Free Text) Assessment: maintain hd mwf blood sugar control respiratory care
--- NOTE | 2018-01-02 14:25 | RAD ---
HISTORY: SOB R/O PLEURAL EFFUSION COMPARISON: Chest x-ray performed 12/24/17 TECHNIQUE: Chest PA and lateral FINDINGS: LUNGS: Right middle/lower lobe consolidation and or a large pleural effusion. No definite pneumothorax. CARDIOVASCULAR: Partially obscured. OSSEOUS STRUCTURES: No acute osseous abnormality identified. VISUALIZED UPPER ABDOMEN: Unremarkable. OTHER FINDINGS: None. IMPRESSION: Right middle/lower lobe consolidation and or a large pleural effusion.
--- NOTE | 2018-01-02 16:19 | CP.PCM.PN ---
Subjective - Date & Time of Evaluation Date of Evaluation: 01/02/18 Time of Evaluation: 16:17 - Subjective Subjective: DM type 1 Objective - Vital Signs/Intake and Output Vital Signs (last 24 hours): Temp Pulse Resp BP Pulse Ox 98.3 F 101 H 20 134/85 100 01/02/18 08:26 01/02/18 08:26 01/02/18 08:26 01/02/18 08:26 01/02/18 08:26 Intake and Output: 01/02/18 01/02/18 06:59 18:59 Intake Total 120 600 Output Total 450 Balance 120 150 - Medications Medications: Current Medications Albuterol/Ipratropium (Duoneb 3 Mg/0.5 Mg (3 Ml) Ud) 3 ml INH RQ6 [facility] Last Admin: 01/02/18 13:51 Dose: 3 ml Amlodipine Besylate (Norvasc) 5 mg PO DAILY [facility] Last Admin: 01/02/18 10:23 Dose: 5 mg Clonidine HCl (Catapres) 0.1 mg PO TID [facility] Last Admin: 01/02/18 13:37 Dose: 0.1 mg Fluticasone Propionate (Flonase) 1 spr NS RQD [facility] Last Admin: 01/02/18 08:22 Dose: 1 spr Gabapentin (Neurontin) 300 mg PO DAILY [facility] Last Admin: 01/02/18 10:23 Dose: 300 mg Insulin Glargine (Lantus) 12 unit SC BIDPC [facility] Insulin Human Regular (Novolin R) 0 unit SC ACHS [facility] PRN Reason: Protocol Last Admin: 01/02/18 12:35 Dose: 6 unit Insulin Human Regular (Novolin R) 12 unit SC TIDPC [facility] Last Admin: 01/02/18 13:35 Dose: 12 unit Losartan Potassium (Cozaar) 100 mg PO DAILY [facility] Last Admin: 01/02/18 10:23 Dose: 100 mg Moxifloxacin HCl (Avelox) 400 mg PO DAILY [facility] Last Admin: 01/02/18 10:22 Dose: 400 mg Oxybutynin Chloride (Ditropan Xl) 5 mg PO DAILY [facility] Last Admin: 01/02/18 10:23 Dose: 5 mg Pantoprazole Sodium (Protonix Ec Tab) 40 mg PO DAILY [facility] Last Admin: 01/02/18 10:22 Dose: 40 mg Promethazine HCl (Phenergan Syrup) 6.25 mg PO QID [facility] Last Admin: 01/02/18 13:37 Dose: 6.25 mg Rosuvastatin Calcium (Crestor) 10 mg PO HS [facility] Last Admin: 01/01/18 21:53 Dose: 10 mg Tiotropium [place] (Spiriva) 18 mcg IH RQD [facility] - Labs Labs: 12/30/17 14:13 12/30/17 14:13 PT 13.5 SECONDS (9.7-12.2) H 12/19/17 14:06 INR 1.2 12/19/17 14:06 Assessment and Plan (1) 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 Anthony is 42 y/o admitted for SOB,couugh , chest pain found with pleural effusion s/p thoracocentesis as per pt. has DM type 1 @ age of 20 (+) neuropathy , (+) retinopathy , (+) ESRD on HD (-) CAD (+) PVD s/p CVA also with multinodular goiter s/p FNA years ago , benign , not on thyroid meds , denies personal/fhx of thyroid cancer , denies h/o neck irradiation blood glucose log : 200-400 no hypoglycemia Allergy NKDA Past medical history: HTN , CHF , CVA Past surgical history: CS , Left forarm graft shunt Psychiatry history: denies Social history : denies smoking , ETOH use or illicit drug use Family history : irrelevant ROS: Constitutional: denies fever, tiredness/weakness. HEENT: denies earache, change in voice .Respiratory: denies cough, (+) sob . CVS :no chest pain, no palpitations . Abdomen: no abdominal pain, no nausea /vomiting, no change bowel movement. 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 Extremities: no edema, no tremors. Skin: no itching, no rash LMP 2014 Physical exam Well-developed AAO x3 , ,NAD VSS HEENT: norm cephalic, atraumatic, no lid lag , no exophthalmos NECK: supple, no palpable lymphadenopathy THYROID: (+) thyromegaly, not tender CHEST: fair air entry, bilateral, CVS: S1,S2 ABDOMEN: bowel sound present, benign, obese, no wide purple striae , no bruises EXTREMITIES: (+) pitting edema, clubbing or cyanosis, no palpable hand tremors Skin: acanthosis nigricans lab: 12/2017 thyroid us : no nodules 12/2017 a1c 15.6 , TSH 1.66 2015 a1c 9.7 Assessment sever symptomatic hypoglycemia , resolved uncontrolled type 1 DM with retinopathy & neuropathy ESRD on HD multinodular goiter CHF /pleural effusion plan incease & change Lantus 12 units bid after meals continue Novoloin R low dose coverage, no 3 am coverage increase novoloin R 12 units tid with meals if eat > 60% nutrtional eval & diabetic education we will follow with you. Status: Acute (2) ESRD (end stage renal disease) on dialysis Status: Acute (3) Diabetes mellitus with ESRD (end-stage renal disease) Status: Acute (4) Goiter Status: Acute (5) Pleural effusion on right Status: Acute
--- NOTE | 2018-01-02 17:47 | CP.PCM.PN ---
Subjective - Date & Time of Evaluation Date of Evaluation: 01/02/18 Time of Evaluation: 17:47 Objective - Vital Signs/Intake and Output Vital Signs (last 24 hours): Temp Pulse Resp BP Pulse Ox 98.3 F 101 H 20 134/85 100 01/02/18 08:26 01/02/18 08:26 01/02/18 08:26 01/02/18 08:26 01/02/18 08:26 Intake and Output: 01/02/18 01/02/18 06:59 18:59 Intake Total 120 600 Output Total 450 Balance 120 150 - Medications Medications: Current Medications Albuterol/Ipratropium (Duoneb 3 Mg/0.5 Mg (3 Ml) Ud) 3 ml INH RQ6 [facility] Last Admin: 01/02/18 13:51 Dose: 3 ml Amlodipine Besylate (Norvasc) 5 mg PO DAILY [facility] Last Admin: 01/02/18 10:23 Dose: 5 mg Clonidine HCl (Catapres) 0.1 mg PO TID [facility] Last Admin: 01/02/18 13:37 Dose: 0.1 mg Fluticasone Propionate (Flonase) 1 spr NS RQD [facility] Last Admin: 01/02/18 08:22 Dose: 1 spr Gabapentin (Neurontin) 300 mg PO DAILY [facility] Last Admin: 01/02/18 10:23 Dose: 300 mg Insulin Glargine (Lantus) 12 unit SC BIDPC [facility] Insulin Human Regular (Novolin R) 0 unit SC ACHS [facility] PRN Reason: Protocol Last Admin: 01/02/18 17:27 Dose: 5 unit Insulin Human Regular (Novolin R) 12 unit SC TIDPC [facility] Last Admin: 01/02/18 13:35 Dose: 12 unit Losartan Potassium (Cozaar) 100 mg PO DAILY [facility] Last Admin: 01/02/18 10:23 Dose: 100 mg Moxifloxacin HCl (Avelox) 400 mg PO DAILY [facility] Last Admin: 01/02/18 10:22 Dose: 400 mg Oxybutynin Chloride (Ditropan Xl) 5 mg PO DAILY [facility] Last Admin: 01/02/18 10:23 Dose: 5 mg Pantoprazole Sodium (Protonix Ec Tab) 40 mg PO DAILY [facility] Last Admin: 01/02/18 10:22 Dose: 40 mg Promethazine HCl (Phenergan Syrup) 6.25 mg PO QID [facility] Last Admin: 01/02/18 13:37 Dose: 6.25 mg Rosuvastatin Calcium (Crestor) 10 mg PO HS [facility] Last Admin: 01/01/18 21:53 Dose: 10 mg Tiotropium [place] (Spiriva) 18 mcg IH RQD [facility] - Labs Labs: 12/30/17 14:13 12/30/17 14:13 PT 13.5 SECONDS (9.7-12.2) H 12/19/17 14:06 INR 1.2 12/19/17 14:06
[2018-01-02] MEDS: (Lantus) Insulin Glargine, Recombinant SC SCH (18:09)
[2018-01-03] MEDS: Albuterol-Ipratrop 3 mg / 0.5 (3 ml) UD INH SCH ×4 (01:40→19:59)
[2018-01-03] MEDS: Fluticasone Nasal 50 mcg/Spray NS SCH (08:25)
[2018-01-03] MEDS: (Lantus) Insulin Glargine, Recombinant SC SCH ×2 (08:25→23:49)
[2018-01-03] MEDS: (Novolin R) Insulin Human Regular 100 units/ml vial SC SCH ×7 (08:26→21:56)
[2018-01-03] MEDS: Pantoprazole 40 mg EC Tab PO SCH (09:37)
[2018-01-03] MEDS: Promethazine 6.25 MG/5 ML CUP PO SCH ×4 (09:38→22:26)
--- NOTE | 2018-01-03 15:33 | PCM.SURG1 ---
Surgeon's Initial Post Op Note - Surgeon's Notes Surgeon: Cristiano Bradford MD Environmental Science Professor: NONE Type of Anesthesia: Local Pre-Operative Diagnosis: dyspnea, right pleural effusion Operative Findings: US showed moderate right pleural effusion Post-Operative Diagnosis: dyspnea, right pleural effusion Operation Performed: US guided right thoracentesis Specimen/Specimens Removed: 1200 cc of clear yellow fluid Estimated Blood Loss: EBL {In ML}: 0 Blood Products Given: N/A Drains Used: No Drains Post-Op Condition: Fair Date of Surgery/Procedure: 01/03/18 Time of Surgery/Procedure: 15:25
--- NOTE | 2018-01-03 16:31 | CT ---
PROCEDURE: CT Chest without contrast HISTORY: pleural effusion COMPARISON: None. TECHNIQUE: Contiguous axial images were obtained through the chest without intravenous contrast enhancement. Sagittal and coronal reconstructions were performed. Radiation dose (DLP): 636.74 mGy-cm. This CT exam was performed using one or more of the following dose reduction techniques: Automated exposure control, adjustment of the mA and/or kV according to patient size, and/or use of iterative reconstruction technique. FINDINGS: LUNGS: There is right lower lobe subsegmental compressive atelectasis secondary to a pleural effusion. There is no pulmonary infiltrate. There is no pulmonary mass. MEDIASTINUM: Unremarkable thoracic aorta. No aneurysm. Mild cardiomegaly. Main pulmonary artery unremarkable. No vascular congestion. Small to moderate right pleural effusion. No left pleural effusion. PLEURA: No pleural fluid. No pneumothorax. BONES: No fracture. No destructive lesion. UPPER ABDOMEN: Grossly unremarkable. OTHER FINDINGS: None. IMPRESSION: Small to moderate right pleural effusion with right lower lobe subsegmental atelectasis. Otherwise unremarkable examination.
--- NOTE | 2018-01-03 17:23 | CP.PCM.PN ---
Subjective - Date & Time of Evaluation Date of Evaluation: 01/03/18 Time of Evaluation: 17:20 - Subjective Subjective: no acute distress s/p HD today s/p thoracentesis no back pain pleuritc chest pain no sob no nausea no rash no cough no vomiting no diarrhea anuric Objective - Vital Signs/Intake and Output Vital Signs (last 24 hours): Temp Pulse Resp BP Pulse Ox 97.4 F L 100 H 18 131/86 97 01/03/18 13:05 01/03/18 13:05 01/03/18 13:05 01/03/18 13:05 01/03/18 13:05 Intake and Output: 01/03/18 01/03/18 06:59 18:59 Intake Total 200 500 Output Total 0 Balance 200 500 - Medications Medications: Current Medications Acetaminophen (Tylenol 325mg Tab) 650 mg PO Q6 PRN PRN Reason: Pain, severe (8-10) Last Admin: 01/03/18 17:03 Dose: 650 mg Albuterol/Ipratropium (Duoneb 3 Mg/0.5 Mg (3 Ml) Ud) 3 ml INH RQ6 [facility] Last Admin: 01/03/18 13:22 Dose: Not Given Amlodipine Besylate (Norvasc) 5 mg PO DAILY [facility] Last Admin: 01/03/18 09:36 Dose: Not Given Clonidine HCl (Catapres) 0.1 mg PO TID [facility] Last Admin: 01/03/18 17:01 Dose: 0.1 mg Fluticasone Propionate (Flonase) 1 spr NS RQD [facility] Last Admin: 01/03/18 08:25 Dose: 1 spr Gabapentin (Neurontin) 300 mg PO DAILY [facility] Last Admin: 01/03/18 09:37 Dose: 300 mg Insulin Glargine (Lantus) 12 unit SC BIDPC [facility] Last Admin: 01/03/18 08:25 Dose: 12 units Insulin Human Regular (Novolin R) 0 unit SC ACHS GUI PRN Reason: Protocol Last Admin: 01/03/18 17:02 Dose: Not Given Insulin Human Regular (Novolin R) 12 unit SC TIDPC [facility] Last Admin: 01/03/18 17:09 Dose: Not Given Losartan Potassium (Cozaar) 100 mg PO DAILY [facility] Last Admin: 01/03/18 09:35 Dose: Not Given Moxifloxacin HCl (Avelox) 400 mg PO DAILY [facility] Last Admin: 01/03/18 09:37 Dose: 400 mg Oxybutynin Chloride (Ditropan Xl) 5 mg PO DAILY [facility] Last Admin: 01/03/18 09:38 Dose: 5 mg Pantoprazole Sodium (Protonix Ec Tab) 40 mg PO DAILY [facility] Last Admin: 01/03/18 09:37 Dose: 40 mg Promethazine HCl (Phenergan Syrup) 6.25 mg PO QID [facility] Last Admin: 01/03/18 17:03 Dose: 6.25 mg Rosuvastatin Calcium (Crestor) 10 mg PO HS [facility] Last Admin: 01/02/18 21:45 Dose: 10 mg Tiotropium [place] (Spiriva) 18 mcg IH RQD [facility] - Labs Labs: 12/30/17 14:13 12/30/17 14:13 PT 13.5 SECONDS (9.7-12.2) H 12/19/17 14:06 INR 1.2 12/19/17 14:06 - Constitutional Appears: Non-toxic, Chronically Ill - Head Exam Head Exam: ATRAUMATIC - Eye Exam Eye Exam: EOMI, Normal appearance - ENT Exam ENT Exam: Mucous Membranes Moist - Neck Exam Neck Exam: Full ROM. absent: Lymphadenopathy - Respiratory Exam Respiratory Exam: Decreased Breath Sounds. absent: Accessory Muscle Use - Cardiovascular Exam Cardiovascular Exam: REGULAR RHYTHM. absent: Rubs - Neurological Exam Neurological Exam: Alert, Awake - Psychiatric Exam Psychiatric exam: Normal Affect Assessment and Plan - Assessment and Plan (Free Text) Assessment: esrd pneumonia f/u thoracentesis fluid studies continue pulmonary toilet and AB
--- NOTE | 2018-01-03 18:07 | CP.PCM.PN ---
Subjective - Date & Time of Evaluation Date of Evaluation: 01/03/18 Time of Evaluation: 18:06 Objective - Vital Signs/Intake and Output Vital Signs (last 24 hours): Temp Pulse Resp BP Pulse Ox 98.0 F 106 H 20 134/77 95 01/03/18 15:30 01/03/18 15:30 01/03/18 15:30 01/03/18 15:30 01/03/18 15:30 Intake and Output: 01/03/18 01/03/18 06:59 18:59 Intake Total 200 500 Output Total 0 Balance 200 500 - Medications Medications: Current Medications Acetaminophen (Tylenol 325mg Tab) 650 mg PO Q6 PRN PRN Reason: Pain, severe (8-10) Last Admin: 01/03/18 17:03 Dose: 650 mg Albuterol/Ipratropium (Duoneb 3 Mg/0.5 Mg (3 Ml) Ud) 3 ml INH RQ6 [facility] Last Admin: 01/03/18 13:22 Dose: Not Given Amlodipine Besylate (Norvasc) 5 mg PO DAILY [facility] Last Admin: 01/03/18 09:36 Dose: Not Given Clonidine HCl (Catapres) 0.1 mg PO TID [facility] Last Admin: 01/03/18 17:01 Dose: 0.1 mg Fluticasone Propionate (Flonase) 1 spr NS RQD [facility] Last Admin: 01/03/18 08:25 Dose: 1 spr Gabapentin (Neurontin) 300 mg PO DAILY [facility] Last Admin: 01/03/18 09:37 Dose: 300 mg Insulin Glargine (Lantus) 12 unit SC BIDPC [facility] Last Admin: 01/03/18 08:25 Dose: 12 units Insulin Human Regular (Novolin R) 0 unit SC ACHS [facility] PRN Reason: Protocol Last Admin: 01/03/18 17:02 Dose: Not Given Insulin Human Regular (Novolin R) 12 unit SC TIDPC [facility] Last Admin: 01/03/18 17:09 Dose: Not Given Losartan Potassium (Cozaar) 100 mg PO DAILY [facility] Last Admin: 01/03/18 09:35 Dose: Not Given Moxifloxacin HCl (Avelox) 400 mg PO DAILY [facility] Last Admin: 01/03/18 09:37 Dose: 400 mg Oxybutynin Chloride (Ditropan Xl) 5 mg PO DAILY [facility] Last Admin: 01/03/18 09:38 Dose: 5 mg Pantoprazole Sodium (Protonix Ec Tab) 40 mg PO DAILY [facility] Last Admin: 01/03/18 09:37 Dose: 40 mg Promethazine HCl (Phenergan Syrup) 6.25 mg PO QID [facility] Last Admin: 01/03/18 17:03 Dose: 6.25 mg Rosuvastatin Calcium (Crestor) 10 mg PO HS [facility] Last Admin: 01/02/18 21:45 Dose: 10 mg Tiotropium [place] (Spiriva) 18 mcg IH RQD [facility] - Labs Labs: 12/30/17 14:13 12/30/17 14:13 PT 13.5 SECONDS (9.7-12.2) H 12/19/17 14:06 INR 1.2 12/19/17 14:06
--- NOTE | 2018-01-03 21:00 | CP.PCM.PN ---
Subjective - Date & Time of Evaluation Date of Evaluation: 01/03/18 Time of Evaluation: 20:55 - Subjective Subjective: Assessment & Plan: Endocrine consult f/u reason for consult: uncontrolled diabetes Source: pt.& chart review Ms. Anthony is 42 y/o admitted for SOB,couugh , chest pain found with pleural effusion s/p thoracocentesis as per pt. has DM type 1 @ age of 20 (+) neuropathy , (+) retinopathy , (+) ESRD on HD (-) CAD (+) PVD s/p CVA also with multinodular goiter s/p FNA years ago , benign , not on thyroid meds , denies personal/fhx of thyroid cancer , denies h/o neck irradiation blood glucose log : 150-200 , glucose 68 ac dinner ,asymptomatic after juice up to 115, s/p HD & thoracocentsis today Allergy NKDA Past medical history: HTN , CHF , CVA Past surgical history: CS , Left forarm graft shunt Psychiatry history: denies Social history : denies smoking , ETOH use or illicit drug use Family history : irrelevant ROS: Constitutional: denies fever, tiredness/weakness. HEENT: denies earache, change in voice .Respiratory: denies cough, (+) sob . CVS :no chest pain, no palpitations . Abdomen: no abdominal pain, no nausea /vomiting, no change bowel movement. 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 Extremities: no edema, no tremors. Skin: no itching, no rash LMP 2014 Physical exam Well-developed AAO x3 , ,NAD VSS HEENT: norm cephalic, atraumatic, no lid lag , no exophthalmos NECK: supple, no palpable lymphadenopathy THYROID: (+) thyromegaly, not tender CHEST: fair air entry, bilateral, CVS: S1,S2 ABDOMEN: bowel sound present, benign, obese, no wide purple striae , no bruises EXTREMITIES: (+) pitting edema, clubbing or cyanosis, no palpable hand tremors Skin: acanthosis nigricans lab: 12/2017 thyroid us : no nodules 12/2017 a1c 15.6 , TSH 1.66 2015 a1c 9.7 Assessment recurrent hypoglycemia uncontrolled type 1 DM with retinopathy & neuropathy ESRD on HD multinodular goiter CHF /pleural effusion plan continue Lantus 12 units bid after meals , after checking glucose now ! continue Novoloin R low dose coverage, no 3 am coverage increase novoloin R 12 units tid with meals if eat > 60% nutrtional eval & diabetic education plan communicated with nurse in charge we will follow with you. Objective - Vital Signs/Intake and Output Vital Signs (last 24 hours): Temp Pulse Resp BP Pulse Ox 98.0 F 106 H 20 134/77 95 01/03/18 15:30 01/03/18 15:30 01/03/18 15:30 01/03/18 15:30 01/03/18 15:30 Intake and Output: 01/03/18 01/04/18 18:59 06:59 Intake Total 500 Output Total 0 Balance 500 - Medications Medications: Current Medications Acetaminophen (Tylenol 325mg Tab) 650 mg PO Q6 PRN PRN Reason: Pain, severe (8-10) Last Admin: 01/03/18 17:03 Dose: 650 mg Albuterol/Ipratropium (Duoneb 3 Mg/0.5 Mg (3 Ml) Ud) 3 ml INH RQ6 [facility] Last Admin: 01/03/18 19:59 Dose: 3 ml Amlodipine Besylate (Norvasc) 5 mg PO DAILY [facility] Last Admin: 01/03/18 09:36 Dose: Not Given Clonidine HCl (Catapres) 0.1 mg PO TID [facility] Last Admin: 01/03/18 17:01 Dose: 0.1 mg Fluticasone Propionate (Flonase) 1 spr NS RQD [facility] Last Admin: 01/03/18 08:25 Dose: 1 spr Gabapentin (Neurontin) 300 mg PO DAILY [facility] Last Admin: 01/03/18 09:37 Dose: 300 mg Insulin Glargine (Lantus) 12 unit SC BIDPC [facility] Last Admin: 01/03/18 08:25 Dose: 12 units Insulin Human Regular (Novolin R) 0 unit SC ACHS [facility] PRN Reason: Protocol Last Admin: 01/03/18 17:02 Dose: Not Given Insulin Human Regular (Novolin R) 12 unit SC TIDPC [facility] Last Admin: 01/03/18 17:09 Dose: Not Given Losartan Potassium (Cozaar) 100 mg PO DAILY [facility] Last Admin: 01/03/18 09:35 Dose: Not Given Moxifloxacin HCl (Avelox) 400 mg PO DAILY [facility] Last Admin: 01/03/18 09:37 Dose: 400 mg Oxybutynin Chloride (Ditropan Xl) 5 mg PO DAILY [facility] Last Admin: 01/03/18 09:38 Dose: 5 mg Pantoprazole Sodium (Protonix Ec Tab) 40 mg PO DAILY [facility] Last Admin: 01/03/18 09:37 Dose: 40 mg Promethazine HCl (Phenergan Syrup) 6.25 mg PO QID [facility] Last Admin: 01/03/18 17:03 Dose: 6.25 mg Rosuvastatin Calcium (Crestor) 10 mg PO HS [facility] Last Admin: 01/02/18 21:45 Dose: 10 mg Tiotropium [place] (Spiriva) 18 mcg IH RQD [facility] - Labs Labs: 12/30/17 14:13 12/30/17 14:13 PT 13.5 SECONDS (9.7-12.2) H 12/19/17 14:06 INR 1.2 12/19/17 14:06 Assessment and Plan (1) 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
[2018-01-04] MEDS: Albuterol-Ipratrop 3 mg / 0.5 (3 ml) UD INH SCH ×4 (02:47→19:41)
[2018-01-04] MEDS: (Novolin R) Insulin Human Regular 100 units/ml vial SC SCH ×7 (08:20→21:09)
[2018-01-04] MEDS: Pantoprazole 40 mg EC Tab PO SCH (10:26)
[2018-01-04] MEDS: (Lantus) Insulin Glargine, Recombinant SC SCH ×2 (10:26→18:11)
[2018-01-04] MEDS: Promethazine 6.25 MG/5 ML CUP PO SCH ×4 (10:28→21:08)
[2018-01-04] MEDS: Fluticasone Nasal 50 mcg/Spray NS SCH (10:29)
--- NOTE | 2018-01-04 12:39 | CP.PCM.PN ---
Subjective - Date & Time of Evaluation Date of Evaluation: 01/04/18 Time of Evaluation: 12:38 - Subjective Subjective: breathing better for repeat thoracentesis today no fever no chills no n/v,diarrha no rash no edema/ no chest pain cough no headache Objective - Vital Signs/Intake and Output Vital Signs (last 24 hours): Temp Pulse Resp BP Pulse Ox 98.9 F 99 H 20 119/73 95 01/04/18 07:44 01/04/18 07:44 01/04/18 07:44 01/04/18 07:44 01/04/18 07:44 Intake and Output: 01/04/18 01/04/18 06:59 18:59 Intake Total 510 Balance 510 - Medications Medications: Current Medications Acetaminophen (Tylenol 325mg Tab) 650 mg PO Q6 PRN PRN Reason: Pain, severe (8-10) Last Admin: 01/04/18 08:19 Dose: 650 mg Albuterol/Ipratropium (Duoneb 3 Mg/0.5 Mg (3 Ml) Ud) 3 ml INH RQ6 [facility] Last Admin: 01/04/18 07:31 Dose: 3 ml Amlodipine Besylate (Norvasc) 5 mg PO DAILY [facility] Last Admin: 01/04/18 10:26 Dose: 5 mg Clonidine HCl (Catapres) 0.1 mg PO TID [facility] Last Admin: 01/04/18 10:26 Dose: 0.1 mg Fluticasone Propionate (Flonase) 1 spr NS RQD [facility] Last Admin: 01/04/18 10:29 Dose: 1 spr Gabapentin (Neurontin) 300 mg PO DAILY [facility] Last Admin: 01/04/18 10:26 Dose: 300 mg Insulin Glargine (Lantus) 12 unit SC BIDPC [facility] Last Admin: 01/04/18 10:26 Dose: 12 units Insulin Human Regular (Novolin R) 0 unit SC ACHS GUI PRN Reason: Protocol Last Admin: 01/04/18 08:20 Dose: Not Given Insulin Human Regular (Novolin R) 12 unit SC TIDPC [facility] Last Admin: 01/04/18 10:28 Dose: 12 unit Losartan Potassium (Cozaar) 100 mg PO DAILY [facility] Last Admin: 01/04/18 10:26 Dose: 100 mg Moxifloxacin HCl (Avelox) 400 mg PO DAILY [facility] Last Admin: 01/04/18 10:26 Dose: 400 mg Oxybutynin Chloride (Ditropan Xl) 5 mg PO DAILY [facility] Last Admin: 01/04/18 10:27 Dose: 5 mg Pantoprazole Sodium (Protonix Ec Tab) 40 mg PO DAILY [facility] Last Admin: 01/04/18 10:26 Dose: 40 mg Promethazine HCl (Phenergan Syrup) 6.25 mg PO QID [facility] Last Admin: 01/04/18 10:28 Dose: 6.25 mg Rosuvastatin Calcium (Crestor) 10 mg PO HS [facility] Last Admin: 01/03/18 22:26 Dose: 10 mg Tiotropium [place] (Spiriva) 18 mcg IH RQD [facility] - Labs Labs: 12/30/17 14:13 12/30/17 14:13 PT 13.5 SECONDS (9.7-12.2) H 12/19/17 14:06 INR 1.2 12/19/17 14:06 - Constitutional Appears: Non-toxic, Chronically Ill - Head Exam Head Exam: ATRAUMATIC, NORMAL INSPECTION - Eye Exam Eye Exam: EOMI, Normal appearance - ENT Exam ENT Exam: Mucous Membranes Moist - Neck Exam Neck Exam: Full ROM. absent: Lymphadenopathy - Respiratory Exam Respiratory Exam: Rhonchi. absent: Accessory Muscle Use - Cardiovascular Exam Cardiovascular Exam: REGULAR RHYTHM. absent: Rubs - GI/Abdominal Exam GI & Abdominal Exam: Distended. absent: Tenderness - Extremities Exam Extremities Exam: absent: Pedal Edema - Neurological Exam Neurological Exam: Alert Assessment and Plan - Assessment and Plan (Free Text) Plan: for repeat thoracentesis continue AB and pulmonary toilet
--- NOTE | 2018-01-04 18:32 | CP.PCM.PN ---
Objective - Vital Signs/Intake and Output Vital Signs (last 24 hours): Temp Pulse Resp BP Pulse Ox 98 F 97 H 20 120/80 98 01/04/18 15:15 01/04/18 15:15 01/04/18 15:15 01/04/18 15:15 01/04/18 15:15 Intake and Output: 01/04/18 01/04/18 06:59 18:59 Intake Total 510 500 Balance 510 500 - Medications Medications: Current Medications Acetaminophen (Tylenol 325mg Tab) 650 mg PO Q6 PRN PRN Reason: Pain, severe (8-10) Last Admin: 01/04/18 08:19 Dose: 650 mg Albuterol/Ipratropium (Duoneb 3 Mg/0.5 Mg (3 Ml) Ud) 3 ml INH RQ6 [facility] Last Admin: 01/04/18 13:36 Dose: 3 ml Amlodipine Besylate (Norvasc) 5 mg PO DAILY [facility] Last Admin: 01/04/18 10:26 Dose: 5 mg Clonidine HCl (Catapres) 0.1 mg PO TID [facility] Last Admin: 01/04/18 18:04 Dose: 0.1 mg Fluticasone Propionate (Flonase) 1 spr NS RQD [facility] Last Admin: 01/04/18 10:29 Dose: 1 spr Gabapentin (Neurontin) 300 mg PO DAILY [facility] Last Admin: 01/04/18 10:26 Dose: 300 mg Insulin Glargine (Lantus) 12 unit SC BIDPC [facility] Last Admin: 01/04/18 18:11 Dose: 12 units Insulin Human Regular (Novolin R) 0 unit SC ACHS GUI PRN Reason: Protocol Last Admin: 01/04/18 18:04 Dose: Not Given Insulin Human Regular (Novolin R) 12 unit SC TIDPC [facility] Last Admin: 01/04/18 18:07 Dose: Not Given Losartan Potassium (Cozaar) 100 mg PO DAILY [facility] Last Admin: 01/04/18 10:26 Dose: 100 mg Moxifloxacin HCl (Avelox) 400 mg PO DAILY [facility] Last Admin: 01/04/18 10:26 Dose: 400 mg Oxybutynin Chloride (Ditropan Xl) 5 mg PO DAILY [facility] Last Admin: 01/04/18 10:27 Dose: 5 mg Pantoprazole Sodium (Protonix Ec Tab) 40 mg PO DAILY [facility] Last Admin: 01/04/18 10:26 Dose: 40 mg Promethazine HCl (Phenergan Syrup) 6.25 mg PO QID [facility] Last Admin: 01/04/18 18:05 Dose: 6.25 mg Rosuvastatin Calcium (Crestor) 10 mg PO HS [facility] Last Admin: 01/03/18 22:26 Dose: 10 mg Tiotropium [place] (Spiriva) 18 mcg IH RQD [facility] - Labs Labs: 12/30/17 14:13 12/30/17 14:13 PT 13.5 SECONDS (9.7-12.2) H 12/19/17 14:06 INR 1.2 12/19/17 14:06
--- NOTE | 2018-01-04 22:41 | CP.PCM.PN ---
Subjective - Date & Time of Evaluation Date of Evaluation: 01/04/18 Time of Evaluation: 09:30 - Subjective Subjective: type 1 diabetes Objective - Vital Signs/Intake and Output Vital Signs (last 24 hours): Temp Pulse Resp BP Pulse Ox 98 F 97 H 20 120/80 98 01/04/18 15:15 01/04/18 15:15 01/04/18 15:15 01/04/18 15:15 01/04/18 15:15 Intake and Output: 01/04/18 01/05/18 18:59 06:59 Intake Total 500 300 Balance 500 300 - Medications Medications: Current Medications Acetaminophen (Tylenol 325mg Tab) 650 mg PO Q6 PRN PRN Reason: Pain, severe (8-10) Last Admin: 01/04/18 18:39 Dose: 650 mg Albuterol/Ipratropium (Duoneb 3 Mg/0.5 Mg (3 Ml) Ud) 3 ml INH RQ6 [facility] Last Admin: 01/04/18 19:41 Dose: 3 ml Amlodipine Besylate (Norvasc) 5 mg PO DAILY [facility] Last Admin: 01/04/18 10:26 Dose: 5 mg Clonidine HCl (Catapres) 0.1 mg PO TID [facility] Last Admin: 01/04/18 18:04 Dose: 0.1 mg Fluticasone Propionate (Flonase) 1 spr NS RQD [facility] Last Admin: 01/04/18 10:29 Dose: 1 spr Gabapentin (Neurontin) 300 mg PO DAILY [facility] Last Admin: 01/04/18 10:26 Dose: 300 mg Insulin Glargine (Lantus) 12 unit SC BIDPC [facility] Last Admin: 01/04/18 18:11 Dose: 12 units Insulin Human Regular (Novolin R) 0 unit SC ACHS [facility] PRN Reason: Protocol Last Admin: 01/04/18 21:09 Dose: Not Given Insulin Human Regular (Novolin R) 12 unit SC TIDPC [facility] Last Admin: 01/04/18 18:07 Dose: Not Given Losartan Potassium (Cozaar) 100 mg PO DAILY [facility] Last Admin: 01/04/18 10:26 Dose: 100 mg Moxifloxacin HCl (Avelox) 400 mg PO DAILY [facility] Last Admin: 01/04/18 10:26 Dose: 400 mg Oxybutynin Chloride (Ditropan Xl) 5 mg PO DAILY [facility] Last Admin: 01/04/18 10:27 Dose: 5 mg Pantoprazole Sodium (Protonix Ec Tab) 40 mg PO DAILY [facility] Last Admin: 01/04/18 10:26 Dose: 40 mg Promethazine HCl (Phenergan Syrup) 6.25 mg PO QID [facility] Last Admin: 01/04/18 21:08 Dose: 6.25 mg Rosuvastatin Calcium (Crestor) 10 mg PO HS [facility] Last Admin: 01/04/18 21:08 Dose: 10 mg Tiotropium [place] (Spiriva) 18 mcg IH RQD [facility] - Labs Labs: 12/30/17 14:13 12/30/17 14:13 PT 13.5 SECONDS (9.7-12.2) H 12/19/17 14:06 INR 1.2 12/19/17 14:06 Assessment and Plan (1) 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 Anthony is 42 y/o admitted for SOB,couugh , chest pain found with pleural effusion s/p thoracocentesis as per pt. has DM type 1 @ age of 20 (+) neuropathy , (+) retinopathy , (+) ESRD on HD (-) CAD (+) PVD s/p CVA also with multinodular goiter s/p FNA years ago , benign , not on thyroid meds , denies personal/fhx of thyroid cancer , denies h/o neck irradiation blood glucose log : 150-200 , no hypoglycemia , pm Lantus was held last night Allergy NKDA Past medical history: HTN , CHF , CVA Past surgical history: CS , Left forarm graft shunt Psychiatry history: denies Social history : denies smoking , ETOH use or illicit drug use Family history : irrelevant ROS: Constitutional: denies fever, tiredness/weakness. HEENT: denies earache, change in voice .Respiratory: denies cough, (+) sob . CVS :no chest pain, no palpitations . Abdomen: no abdominal pain, no nausea /vomiting, no change bowel movement. 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 Extremities: no edema, no tremors. Skin: no itching, no rash 2014 Physical exam Well-developed AAO x3 , ,NAD VSS HEENT: norm cephalic, atraumatic, no lid lag , no exophthalmos NECK: supple, no palpable lymphadenopathy THYROID: (+) thyromegaly, not tender CHEST: fair air entry, bilateral, CVS: S1,S2 ABDOMEN: bowel sound present, benign, obese, no wide purple striae , no bruises EXTREMITIES: (+) pitting edema, clubbing or cyanosis, no palpable hand tremors Skin: acanthosis nigricans lab: 12/2017 thyroid us : no nodules 12/2017 a1c 15.6 , TSH 1.66 2015 a1c 9.7 Assessment recurrent hypoglycemia uncontrolled type 1 DM with retinopathy & neuropathy ESRD on HD multinodular goiter CHF /pleural effusion plan continue Lantus 12 units bid after meals continue Novoloin R low dose coverage, no 3 am coverage continue novoloin R 12 units tid with meals if eat > 60% nutrtional eval & diabetic education we will follow with you. Status: Acute (2) ESRD (end stage renal disease) on dialysis Status: Acute (3) Diabetes mellitus with ESRD (end-stage renal disease) Status: Acute (4) Goiter Status: Acute (5) Pleural effusion on right Status: Acute
[2018-01-05] MEDS: Albuterol-Ipratrop 3 mg / 0.5 (3 ml) UD INH SCH ×4 (02:40→19:07)
[2018-01-05] MEDS: (Novolin R) Insulin Human Regular 100 units/ml vial SC SCH ×8 (07:48→21:52)
[2018-01-05] MEDS: Fluticasone Nasal 50 mcg/Spray NS SCH (07:49)
[2018-01-05] MEDS: Pantoprazole 40 mg EC Tab PO SCH (09:34)
[2018-01-05] MEDS: (Lantus) Insulin Glargine, Recombinant SC SCH ×2 (09:39→17:57)
[2018-01-05] MEDS: Promethazine 6.25 MG/5 ML CUP PO SCH ×4 (11:51→21:51)
--- NOTE | 2018-01-05 16:59 | CP.PCM.PN ---
Subjective - Date & Time of Evaluation Date of Evaluation: 01/05/18 Time of Evaluation: 16:59 Objective - Vital Signs/Intake and Output Vital Signs (last 24 hours): Temp Pulse Resp BP Pulse Ox 97.8 F 92 H 20 124/83 100 01/05/18 00:00 01/05/18 00:00 01/05/18 00:00 01/05/18 00:00 01/05/18 00:00 Intake and Output: 01/05/18 01/05/18 06:59 18:59 Intake Total 300 200 Balance 300 200 - Medications Medications: Current Medications Acetaminophen (Tylenol 325mg Tab) 650 mg PO Q6 PRN PRN Reason: Pain, severe (8-10) Last Admin: 01/05/18 12:00 Dose: 650 mg Albuterol/Ipratropium (Duoneb 3 Mg/0.5 Mg (3 Ml) Ud) 3 ml INH RQ6 [facility] Last Admin: 01/05/18 13:53 Dose: Not Given Amlodipine Besylate (Norvasc) 5 mg PO DAILY [facility] Last Admin: 01/05/18 09:33 Dose: 5 mg Clonidine HCl (Catapres) 0.1 mg PO TID [facility] Last Admin: 01/05/18 14:10 Dose: Not Given Fluticasone Propionate (Flonase) 1 spr NS RQD [facility] Last Admin: 01/05/18 07:49 Dose: 1 spr Gabapentin (Neurontin) 300 mg PO DAILY [facility] Last Admin: 01/05/18 09:33 Dose: 300 mg Insulin Glargine (Lantus) 12 unit SC BIDPC [facility] Last Admin: 01/05/18 09:39 Dose: 12 units Insulin Human Regular (Novolin R) 0 unit SC ACHS [facility] PRN Reason: Protocol Last Admin: 01/05/18 11:49 Dose: 2 unit Insulin Human Regular (Novolin R) 12 unit SC TIDPC [facility] Last Admin: 01/05/18 15:18 Dose: Not Given Losartan Potassium (Cozaar) 100 mg PO DAILY [facility] Last Admin: 01/05/18 09:36 Dose: 100 mg Oxybutynin Chloride (Ditropan Xl) 5 mg PO DAILY [facility] Last Admin: 01/05/18 09:35 Dose: 5 mg Pantoprazole Sodium (Protonix Ec Tab) 40 mg PO DAILY [facility] Last Admin: 01/05/18 09:34 Dose: 40 mg Promethazine HCl (Phenergan Syrup) 6.25 mg PO QID [facility] Last Admin: 01/05/18 13:47 Dose: 6.25 mg Rosuvastatin Calcium (Crestor) 10 mg PO HS [facility] Last Admin: 01/04/18 21:08 Dose: 10 mg Tiotropium [place] (Spiriva) 18 mcg IH RQD [facility] - Labs Labs: 12/30/17 14:13 12/30/17 14:13 PT 13.5 SECONDS (9.7-12.2) H 12/19/17 14:06 INR 1.2 12/19/17 14:06
--- NOTE | 2018-01-05 21:07 | CP.PCM.PN ---
Subjective - Date & Time of Evaluation Date of Evaluation: 01/05/18 Time of Evaluation: 21:04 - Subjective Subjective: Assessment & Plan: Endocrine consult f/u reason for consult: uncontrolled diabetes Source: pt.& chart review Ms. Anthony is 42 y/o admitted for SOB,couugh , chest pain found with pleural effusion s/p thoracocentesis as per pt. has DM type 1 @ age of 20 (+) neuropathy , (+) retinopathy , (+) ESRD on HD (-) CAD (+) PVD s/p CVA also with multinodular goiter s/p FNA years ago , benign , not on thyroid meds , denies personal/fhx of thyroid cancer , denies h/o neck irradiation blood glucose log : 200 's one episode 123 , no hypoglycemia , fluctuating appetite Allergy NKDA Past medical history: HTN , CHF , CVA Past surgical history: CS , Left forarm graft shunt Psychiatry history: denies Social history : denies smoking , ETOH use or illicit drug use Family history : irrelevant ROS: Constitutional: denies fever, tiredness/weakness. HEENT: denies earache, change in voice .Respiratory: denies cough, (+) sob . CVS :no chest pain, no palpitations . Abdomen: no abdominal pain, no nausea /vomiting, no change bowel movement. 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 Extremities: no edema, no tremors. Skin: no itching, no rash LMP 2014 Physical exam Well-developed Awake & alert ,NAD VSS HEENT: norm cephalic, atraumatic, no lid lag , no exophthalmos NECK: supple, no palpable lymphadenopathy THYROID: (+) thyromegaly, not tender CHEST: fair air entry, bilateral, CVS: S1,S2 ABDOMEN: bowel sound present, benign, obese, no wide purple striae , no bruises EXTREMITIES: (+) pitting edema, clubbing or cyanosis, no palpable hand tremors Skin: acanthosis nigricans lab: 12/2017 thyroid us : no nodules 12/2017 a1c 15.6 , TSH 1.66 2015 a1c 9.7 Assessment recurrent hypoglycemia uncontrolled type 1 DM with retinopathy & neuropathy ESRD on HD multinodular goiter CHF /pleural effusion plan continue Lantus 12 units bid after meals continue Novoloin R low dose coverage, no 3 am coverage continue novoloin R 12 units tid with meals if eat > 60% if eat less than 60 % only give the coverage nutrtional eval & diabetic education will follow with you. Objective - Vital Signs/Intake and Output Vital Signs (last 24 hours): Temp Pulse Resp BP Pulse Ox 98.4 F 87 20 118/69 100 01/05/18 15:15 01/05/18 15:15 01/05/18 15:15 01/05/18 15:15 01/05/18 15:15 Intake and Output: 01/05/18 01/06/18 18:59 06:59 Intake Total 200 Balance 200 - Medications Medications: Current Medications Acetaminophen (Tylenol 325mg Tab) 650 mg PO Q6 PRN PRN Reason: Pain, severe (8-10) Last Admin: 01/05/18 12:00 Dose: 650 mg Albuterol/Ipratropium (Duoneb 3 Mg/0.5 Mg (3 Ml) Ud) 3 ml INH RQ6 [facility] Last Admin: 01/05/18 19:07 Dose: Not Given Amlodipine Besylate (Norvasc) 5 mg PO DAILY [facility] Last Admin: 01/05/18 09:33 Dose: 5 mg Clonidine HCl (Catapres) 0.1 mg PO TID [facility] Last Admin: 01/05/18 17:54 Dose: 0.1 mg Fluticasone Propionate (Flonase) 1 spr NS RQD [facility] Last Admin: 01/05/18 07:49 Dose: 1 spr Gabapentin (Neurontin) 300 mg PO DAILY [facility] Last Admin: 01/05/18 09:33 Dose: 300 mg Insulin Glargine (Lantus) 12 unit SC BIDPC [facility] Last Admin: 01/05/18 17:57 Dose: 12 units Insulin Human Regular (Novolin R) 0 unit SC ACHS [facility] PRN Reason: Protocol Last Admin: 01/05/18 17:55 Dose: 1 unit Insulin Human Regular (Novolin R) 12 unit SC TIDPC [facility] Last Admin: 01/05/18 17:56 Dose: 12 unit Losartan Potassium (Cozaar) 100 mg PO DAILY [facility] Last Admin: 01/05/18 09:36 Dose: 100 mg Oxybutynin Chloride (Ditropan Xl) 5 mg PO DAILY [facility] Last Admin: 01/05/18 09:35 Dose: 5 mg Pantoprazole Sodium (Protonix Ec Tab) 40 mg PO DAILY [facility] Last Admin: 01/05/18 09:34 Dose: 40 mg Promethazine HCl (Phenergan Syrup) 6.25 mg PO QID [facility] Last Admin: 01/05/18 13:47 Dose: 6.25 mg Rosuvastatin Calcium (Crestor) 10 mg PO HS [facility] Last Admin: 01/04/18 21:08 Dose: 10 mg Tiotropium [place] (Spiriva) 18 mcg IH RQD [facility] - Labs Labs: 12/30/17 14:13 12/30/17 14:13 PT 13.5 SECONDS (9.7-12.2) H 12/19/17 14:06 INR 1.2 12/19/17 14:06 Assessment and Plan (1) 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
[2018-01-06] MEDS: Albuterol-Ipratrop 3 mg / 0.5 (3 ml) UD INH SCH ×3 (02:32→13:50)
[2018-01-06] MEDS: (Novolin R) Insulin Human Regular 100 units/ml vial SC SCH ×7 (07:30→22:02)
[2018-01-06] MEDS: Fluticasone Nasal 50 mcg/Spray NS SCH (08:00)
[2018-01-06] MEDS: (Lantus) Insulin Glargine, Recombinant SC SCH ×2 (09:00→17:42)
[2018-01-06] MEDS: Promethazine 6.25 MG/5 ML CUP PO SCH ×4 (09:39→21:37)
[2018-01-06] MEDS: Pantoprazole 40 mg EC Tab PO SCH (09:39)
--- NOTE | 2018-01-06 11:09 | CP.PCM.PN ---
Subjective - Date & Time of Evaluation Date of Evaluation: 01/06/18 Time of Evaluation: 11:07 - Subjective Subjective: Seen on dialysis UF 3500ml HTN controlled no CP, SOB, n, v, chills sleepy but no complaint Objective - Vital Signs/Intake and Output Vital Signs (last 24 hours): Temp Pulse Resp BP Pulse Ox 98.2 F 94 H 20 138/78 94 L 01/06/18 09:10 01/06/18 09:10 01/06/18 09:10 01/06/18 10:40 01/06/18 09:10 Intake and Output: 01/06/18 01/06/18 06:59 18:59 Intake Total 400 Balance 400 - Medications Medications: Current Medications Acetaminophen (Tylenol 325mg Tab) 650 mg PO Q6 PRN PRN Reason: Pain, severe (8-10) Last Admin: 01/05/18 12:00 Dose: 650 mg Albuterol/Ipratropium (Duoneb 3 Mg/0.5 Mg (3 Ml) Ud) 3 ml INH RQ6 [facility] Last Admin: 01/06/18 07:43 Dose: 3 ml Amlodipine Besylate (Norvasc) 5 mg PO DAILY [facility] Last Admin: 01/06/18 09:39 Dose: 5 mg Clonidine HCl (Catapres) 0.1 mg PO TID [facility] Last Admin: 01/06/18 09:38 Dose: 0.1 mg Fluticasone Propionate (Flonase) 1 spr NS RQD [facility] Last Admin: 01/05/18 07:49 Dose: 1 spr Gabapentin (Neurontin) 300 mg PO DAILY [facility] Last Admin: 01/06/18 09:38 Dose: 300 mg Insulin Glargine (Lantus) 12 unit SC BIDPC [facility] Last Admin: 01/05/18 17:57 Dose: 12 units Insulin Human Regular (Novolin R) 0 unit SC ACHS [facility] PRN Reason: Protocol Last Admin: 01/05/18 21:52 Dose: Not Given Insulin Human Regular (Novolin R) 12 unit SC TIDPC [facility] Last Admin: 01/05/18 17:56 Dose: 12 unit Losartan Potassium (Cozaar) 100 mg PO DAILY [facility] Last Admin: 01/06/18 09:39 Dose: 100 mg Oxybutynin Chloride (Ditropan Xl) 5 mg PO DAILY [facility] Last Admin: 01/06/18 09:39 Dose: 5 mg Pantoprazole Sodium (Protonix Ec Tab) 40 mg PO DAILY [facility] Last Admin: 01/06/18 09:39 Dose: 40 mg Promethazine HCl (Phenergan Syrup) 6.25 mg PO QID [facility] Last Admin: 01/06/18 09:39 Dose: 6.25 mg Rosuvastatin Calcium (Crestor) 10 mg PO HS [facility] Last Admin: 01/05/18 21:52 Dose: 10 mg Tiotropium [place] (Spiriva) 18 mcg IH RQD [facility] - Labs Labs: 12/30/17 14:13 12/30/17 14:13 PT 13.5 SECONDS (9.7-12.2) H 12/19/17 14:06 INR 1.2 12/19/17 14:06 - Constitutional Appears: No Acute Distress, Chronically Ill - Head Exam Head Exam: ATRAUMATIC, NORMAL INSPECTION - Eye Exam Eye Exam: EOMI, Normal appearance - Neck Exam Neck Exam: Normal Inspection. absent: Tenderness - Respiratory Exam Respiratory Exam: Clear to Ausculation Bilateral, NORMAL BREATHING PATTERN - Cardiovascular Exam Cardiovascular Exam: REGULAR RHYTHM, +S1 - GI/Abdominal Exam GI & Abdominal Exam: Soft. absent: Tenderness - Extremities Exam Extremities Exam: Normal Inspection. absent: Tenderness - Neurological Exam Neurological Exam: Awake, CN II-XII Intact - Skin Skin Exam: Dry, Warm Assessment and Plan (1) CHF (congestive heart failure) Status: Acute (2) ESRD (end stage renal disease) on dialysis Status: Acute (3) Controlled type 2 diabetes mellitus with diabetic nephropathy Status: Acute (4) Diabetic nephropathy Status: Acute (5) Hypertension Status: Chronic - Assessment and Plan (Free Text) Plan: Same aggressive UF and BP control with meds and dialysis
[2018-01-06 17:30] VITALS: RESP 20
--- NOTE | 2018-01-06 17:48 | CP.PCM.PN ---
Subjective - Date & Time of Evaluation Date of Evaluation: 01/06/18 Time of Evaluation: 17:48 - Subjective Subjective: Alert, awake, denies pain, no sob at rest, NAD. Using oxygen 2 liter via NC. Objective - Vital Signs/Intake and Output Vital Signs (last 24 hours): Temp Pulse Resp BP Pulse Ox 98.3 F 103 H 20 168/90 H 96 01/06/18 16:00 01/06/18 16:00 01/06/18 16:00 01/06/18 16:00 01/06/18 16:00 Intake and Output: 01/06/18 01/06/18 06:59 18:59 Intake Total 400 Balance 400 - Medications Medications: Current Medications Acetaminophen (Tylenol 325mg Tab) 650 mg PO Q6 PRN PRN Reason: Pain, severe (8-10) Last Admin: 01/05/18 12:00 Dose: 650 mg Amlodipine Besylate (Norvasc) 5 mg PO DAILY [facility] Last Admin: 01/06/18 09:39 Dose: 5 mg Clonidine HCl (Catapres) 0.1 mg PO TID [facility] Last Admin: 01/06/18 13:35 Dose: 0.1 mg Fluticasone Propionate (Flonase) 1 spr NS RQD [facility] Last Admin: 01/06/18 08:00 Dose: 1 spr Gabapentin (Neurontin) 300 mg PO DAILY [facility] Last Admin: 01/06/18 09:38 Dose: 300 mg Insulin Glargine (Lantus) 12 unit SC BIDPC [facility] Last Admin: 01/06/18 09:00 Dose: 12 units Insulin Human Regular (Novolin R) 0 unit SC ACHS [facility] PRN Reason: Protocol Last Admin: 01/06/18 11:30 Dose: Not Given Insulin Human Regular (Novolin R) 12 unit SC TIDPC [facility] Last Admin: 01/06/18 13:38 Dose: Not Given Losartan Potassium (Cozaar) 100 mg PO DAILY [facility] Last Admin: 01/06/18 09:39 Dose: 100 mg Oxybutynin Chloride (Ditropan Xl) 5 mg PO DAILY [facility] Last Admin: 01/06/18 09:39 Dose: 5 mg Pantoprazole Sodium (Protonix Ec Tab) 40 mg PO DAILY [facility] Last Admin: 01/06/18 09:39 Dose: 40 mg Promethazine HCl (Phenergan Syrup) 6.25 mg PO QID [facility] Last Admin: 01/06/18 17:41 Dose: 6.25 mg Rosuvastatin Calcium (Crestor) 10 mg PO HS [facility] Last Admin: 01/05/18 21:52 Dose: 10 mg Tiotropium [place] (Spiriva) 18 mcg IH RQD [facility] - Labs Labs: 12/30/17 14:13 12/30/17 14:13 PT 13.5 SECONDS (9.7-12.2) H 12/19/17 14:06 INR 1.2 12/19/17 14:06 Assessment and Plan - Assessment and Plan (Free Text) Assessment: Patient admitted with large pleural effusion, ESRD, seen and examined post dialysis today. Alert, oriented x3, denies acute distress. Has sob on exertion and hypoxia. Home oxygen and walker is arranged. Discussed with [facility], discharge plan for am written. Her family will pick her up tomorrow. Advised to follow up with PMD in 1 week. Home care, [facility] to be arranged in am.
--- NOTE | 2018-01-06 19:44 | CP.PCM.PN ---
Subjective - Date & Time of Evaluation Date of Evaluation: 01/06/18 Time of Evaluation: 19:44 Objective - Vital Signs/Intake and Output Vital Signs (last 24 hours): Temp Pulse Resp BP Pulse Ox 98.3 F 103 H 20 168/90 H 96 01/06/18 16:00 01/06/18 16:00 01/06/18 16:00 01/06/18 16:00 01/06/18 16:00 - Medications Medications: Current Medications Acetaminophen (Tylenol 325mg Tab) 650 mg PO Q6 PRN PRN Reason: Pain, severe (8-10) Last Admin: 01/06/18 17:56 Dose: 650 mg Amlodipine Besylate (Norvasc) 5 mg PO DAILY [facility] Last Admin: 01/06/18 09:39 Dose: 5 mg Clonidine HCl (Catapres) 0.1 mg PO TID [facility] Last Admin: 01/06/18 17:42 Dose: 0.1 mg Fluticasone Propionate (Flonase) 1 spr NS RQD [facility] Last Admin: 01/06/18 08:00 Dose: 1 spr Gabapentin (Neurontin) 300 mg PO DAILY [facility] Last Admin: 01/06/18 09:38 Dose: 300 mg Insulin Glargine (Lantus) 12 unit SC BIDPC [facility] Last Admin: 01/06/18 17:42 Dose: 12 units Insulin Human Regular (Novolin R) 0 unit SC ACHS [facility] PRN Reason: Protocol Last Admin: 01/06/18 17:43 Dose: 1 unit Insulin Human Regular (Novolin R) 12 unit SC TIDPC [facility] Last Admin: 01/06/18 17:43 Dose: 12 unit Losartan Potassium (Cozaar) 100 mg PO DAILY [facility] Last Admin: 01/06/18 09:39 Dose: 100 mg Oxybutynin Chloride (Ditropan Xl) 5 mg PO DAILY [facility] Last Admin: 01/06/18 09:39 Dose: 5 mg Pantoprazole Sodium (Protonix Ec Tab) 40 mg PO DAILY [facility] Last Admin: 01/06/18 09:39 Dose: 40 mg Promethazine HCl (Phenergan Syrup) 6.25 mg PO QID [facility] Last Admin: 01/06/18 17:41 Dose: 6.25 mg Rosuvastatin Calcium (Crestor) 10 mg PO HS [facility] Last Admin: 01/05/18 21:52 Dose: 10 mg Tiotropium [place] (Spiriva) 18 mcg IH RQD [facility] - Labs Labs: 12/30/17 14:13 12/30/17 14:13 PT 13.5 SECONDS (9.7-12.2) H 12/19/17 14:06 INR 1.2 12/19/17 14:06
--- NOTE | 2018-01-06 21:23 | CP.PCM.PN ---
Subjective - Date & Time of Evaluation Date of Evaluation: 01/06/18 Time of Evaluation: 21:21 - Subjective Subjective: type 1 DM Objective - Vital Signs/Intake and Output Vital Signs (last 24 hours): Temp Pulse Resp BP Pulse Ox 98.3 F 103 H 20 168/90 H 96 01/06/18 16:00 01/06/18 16:00 01/06/18 16:00 01/06/18 16:00 01/06/18 16:00 - Medications Medications: Current Medications Acetaminophen (Tylenol 325mg Tab) 650 mg PO Q6 PRN PRN Reason: Pain, severe (8-10) Last Admin: 01/06/18 17:56 Dose: 650 mg Amlodipine Besylate (Norvasc) 5 mg PO DAILY [facility] Last Admin: 01/06/18 09:39 Dose: 5 mg Clonidine HCl (Catapres) 0.1 mg PO TID [facility] Last Admin: 01/06/18 17:42 Dose: 0.1 mg Fluticasone Propionate (Flonase) 1 spr NS RQD [facility] Last Admin: 01/06/18 08:00 Dose: 1 spr Gabapentin (Neurontin) 300 mg PO DAILY [facility] Last Admin: 01/06/18 09:38 Dose: 300 mg Insulin Glargine (Lantus) 12 unit SC BIDPC [facility] Last Admin: 01/06/18 17:42 Dose: 12 units Insulin Human Regular (Novolin R) 0 unit SC ACHS [facility] PRN Reason: Protocol Last Admin: 01/06/18 17:43 Dose: 1 unit Insulin Human Regular (Novolin R) 12 unit SC TIDPC [facility] Last Admin: 01/06/18 17:43 Dose: 12 unit Losartan Potassium (Cozaar) 100 mg PO DAILY [facility] Last Admin: 01/06/18 09:39 Dose: 100 mg Oxybutynin Chloride (Ditropan Xl) 5 mg PO DAILY [facility] Last Admin: 01/06/18 09:39 Dose: 5 mg Pantoprazole Sodium (Protonix Ec Tab) 40 mg PO DAILY [facility] Last Admin: 01/06/18 09:39 Dose: 40 mg Promethazine HCl (Phenergan Syrup) 6.25 mg PO QID [facility] Last Admin: 01/06/18 17:41 Dose: 6.25 mg Rosuvastatin Calcium (Crestor) 10 mg PO HS [facility] Last Admin: 01/05/18 21:52 Dose: 10 mg Tiotropium [place] (Spiriva) 18 mcg IH RQD [facility] - Labs Labs: 12/30/17 14:13 12/30/17 14:13 PT 13.5 SECONDS (9.7-12.2) H 12/19/17 14:06 INR 1.2 12/19/17 14:06 Assessment and Plan (1) 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 Anthony is 42 y/o admitted for SOB,couugh , chest pain found with pleural effusion s/p thoracocentesis as per pt. has DM type 1 @ age of 20 (+) neuropathy , (+) retinopathy , (+) ESRD on HD (-) CAD (+) PVD s/p CVA also with multinodular goiter s/p FNA years ago , benign , not on thyroid meds , denies personal/fhx of thyroid cancer , denies h/o neck irradiation blood glucose log : 160-190 , no hypoglycemia Allergy NKDA Past medical history: HTN , CHF , CVA Past surgical history: CS , Left forarm graft shunt Psychiatry history: denies Social history : denies smoking , ETOH use or illicit drug use Family history : irrelevant ROS: Constitutional: denies fever, tiredness/weakness. HEENT: denies earache, change in voice .Respiratory: denies cough, (+) sob . CVS :no chest pain, no palpitations . Abdomen: no abdominal pain, no nausea /vomiting, no change bowel movement. [employer] R[employer] : denies light-headedness, dizziness. Extremities: no edema, no tremors. Skin: no itching, no rash [facility] 2014 Physical exam Well-developed Awake & alert ,NAD VSS HEENT: norm cephalic, atraumatic, no lid lag , no exophthalmos NECK: supple, no palpable lymphadenopathy THYROID: (+) thyromegaly, not tender CHEST: fair air entry, bilateral, CVS: S1,S2 ABDOMEN: bowel sound present, benign, obese, no wide purple striae , no bruises EXTREMITIES: (+) pitting edema, clubbing or cyanosis, no palpable hand tremors Skin: acanthosis nigricans lab: 12/2017 thyroid us : no nodules 12/2017 a1c 15.6 , TSH 1.66 2015 a1c 9.7 Assessment recurrent hypoglycemia , resolved uncontrolled type 1 DM with retinopathy & neuropathy ESRD on HD multinodular goiter CHF /pleural effusion plan continue Lantus 12 units bid after meals continue Novoloin R low dose coverage, no 3 am coverage continue novoloin R 12 units tid with meals if eat > 60% if eat less than 60 % only give the coverage nutrtional eval & diabetic education will follow with you Status: Acute (2) ESRD (end stage renal disease) on dialysis Status: Acute (3) Diabetes mellitus with ESRD (end-stage renal disease) Status: Acute (4) Goiter Status: Acute (5) Pleural effusion on right Status: Acute
[2018-01-07 07:27] VITALS: BP 126/76; PULSE 97; TEMP 98.4; O2SAT 98
[2018-01-07] MEDS: (Novolin R) Insulin Human Regular 100 units/ml vial SC SCH ×2 (08:30)
[2018-01-07] MEDS: (Lantus) Insulin Glargine, Recombinant SC SCH (08:31)
[2018-01-07] MEDS: Fluticasone Nasal 50 mcg/Spray NS SCH (08:55)
[2018-01-07] MEDS: Pantoprazole 40 mg EC Tab PO SCH (09:39)
[2018-01-07] MEDS: Promethazine 6.25 MG/5 ML CUP PO SCH (09:42)
--- NOTE | 2018-01-07 11:36 | US ---
Date of procedure: 01/03/2018 Procedure: 1. Ultrasound-guided Right thoracentesis, CPT 21900 Medications: 6cc 1% Lidocaine HISTORY: Right pleural effusion, shortness of breath TECHNIQUE: Following informed consent ,the Patients' right chest was marked. Procedure time-out was called, and the patient was placed in the sitting position and limited ultrasound showed a large right effusion. The patient's right back was prepped and draped in the usual sterile fashion. After the skin was anesthetized with lidocaine, a drainage catheter was advanced under ultrasound guidance into the pleural space. Ultrasound-guided thoracentesis was performed. A total of 1500 cubic centimeters of straw-colored fluid removed without complication. A Xeroform dressing was applied. IMPRESSION: Ultrasound guided Right thoracentesis. There were no immediate complications.
--- NOTE | 2018-01-07 18:32 | CP.PCM.DIS ---
Provider - Provider Date of Admission: 12/18/17 15:24 Attending physician: Bertha Walker MD Hospital Course - Lab Results Lab Results: Micro Results 12/26/17 00:45 Blood Blood Culture - Final NO GROWTH AFTER 5 DAYS 12/26/17 00:45 Blood Gram Stain - Final TEST NOT PERFORMED 12/26/17 00:45 Blood Blood Culture - Final NO GROWTH AFTER 5 DAYS 12/26/17 00:45 Blood Gram Stain - Final TEST NOT PERFORMED Most Recent Lab Values WBC 8.1 K/uL (4.8-10.8) 12/30/17 14:13 RBC 3.63 Mil/uL (3.80-5.20) L 12/30/17 14:13 Hgb 10.1 g/dL (11.0-16.0) L 12/30/17 14:13 Hct 31.5 % (34.0-47.0) L 12/30/17 14:13 MCV 86.7 fL (81.0-99.0) 12/30/17 14:13 MCH 27.9 pg (27.0-31.0) 12/30/17 14:13 MCHC 32.2 g/dL (33.0-37.0) L 12/30/17 14:13 RDW 15.9 % (11.5-14.5) H 12/30/17 14:13 Plt Count 238 K/uL (130-400) 12/30/17 14:13 MPV 9.7 fL (7.2-11.7) 12/30/17 14:13 Neut % (Auto) 54.0 % (50.0-75.0) 12/25/17 07:15 Lymph % (Auto) 17.4 % (20.0-40.0) L 12/25/17 07:15 [place] % (Auto) 24.9 % (0.0-10.0) H 12/25/17 07:15 Eos % (Auto) 3.2 % (0.0-4.0) 12/25/17 07:15 Baso % (Auto) 0.5 % (0.0-2.0) 12/25/17 07:15 Neut # (Auto) 3.7 K/uL (1.8-7.0) 12/25/17 07:15 Lymph # (Auto) 1.2 K/uL (1.0-4.3) 12/25/17 07:15 [place] # (Auto) 1.7 K/uL (0.0-0.8) H 12/25/17 07:15 Eos # (Auto) 0.2 K/uL (0.0-0.7) 12/25/17 07:15 Baso # (Auto) 0.0 K/uL (0.0-0.2) 12/25/17 07:15 Neutrophils % (Manual) 64 % (50-75) 12/25/17 07:15 Band Neutrophils % 1 % (0-2) 12/25/17 07:15 Lymphocytes % (Manual) 14 % (20-40) L 12/25/17 07:15 Monocytes % (Manual) 20 % (0-10) H 12/25/17 07:15 Eosinophils % (Manual) 2 % (0-4) 12/25/17 07:15 Platelet Estimate Normal (NORMAL) 12/25/17 07:15 Large Platelets Present 12/25/17 07:15 Hypochromasia (manual) Slight 12/25/17 07:15 Poikilocytosis (manual Slight 12/25/17 07:15 Anisocytosis (manual) Slight 12/25/17 07:15 PT 13.5 SECONDS (9.7-12.2) H 12/19/17 14:06 INR 1.2 12/19/17 14:06 Sodium 132 mmol/L (132-148) 12/30/17 14:13 Potassium 5.5 mmol/L (3.6-5.2) H 12/30/17 14:13 Chloride 90 mmol/L (98-107) L 12/30/17 14:13 Carbon Dioxide 25 mmol/L (22-30) 12/30/17 14:13 Anion Gap 23 (10-20) H 12/30/17 14:13 BUN 71 mg/dL (7-17) H 12/30/17 14:13 Creatinine 8.5 mg/dL (0.7-1.2) H* D 12/30/17 14:13 Est GFR ( Amer) 6 12/30/17 14:13 Est GFR (Non-Af Amer) 5 12/30/17 14:13 POC Glucose (mg/dL) 207 mg/dL (65-110) H 01/07/18 07:09 Random Glucose 277 mg/dL (65-105) H 12/30/17 14:13 Hemoglobin A1c 15.7 % (4.2-6.5) H D 12/23/17 06:54 Calcium 8.0 mg/dl (8.6-10.4) L 12/30/17 14:13 Phosphorus 3.4 mg/dL (2.5-4.5) 12/23/17 06:54 Magnesium 1.8 mg/dL (1.6-2.3) 12/23/17 06:54 Total Bilirubin 1.8 mg/dL (0.2-1.3) H 12/23/17 06:54 AST 34 U/L (14-36) 12/23/17 06:54 ALT 15 U/L (9-52) 12/23/17 06:54 Alkaline Phosphatase 845 U/L (38-126) H D 12/23/17 06:54 Total Protein 8.3 g/dL (6.3-8.3) 12/23/17 06:54 Albumin 3.5 g/dL (3.5-5.0) 12/23/17 06:54 Globulin 4.8 gm/dL (2.2-3.9) H 12/23/17 06:54 Albumin/Globulin Ratio 0.7 (1.0-2.1) L 12/23/17 06:54 TSH 3rd Generation 1.66 mIU/L (0.46-4.68) 12/23/17 06:54 Influenza Typ A,B (EIA) Negative for flu a/b (NEGATIVE) 12/18/17 Unknown Discharge Exam - Head Exam Head Exam: ATRAUMATIC, NORMAL INSPECTION Discharge Plan - Follow Up Plan Condition: FAIR Disposition: HOME/ ROUTINE Instructions: How to Weigh Yourself, Dialysis and Diet, Heart Failure (DC), Pulmonary Edema (DC), Renal Failure Diet (DC), Ascites (DC)
== END 2018-01-07 09:45 | disposition home or self-care (01) | DRG 89 ==
LOC: C.ER 12:20 → C.9E 15:24 → C.3T 12-19 00:05
PROVIDERS: ADMIT Internal Medicine Critical Care Medicine; ATTEND Internal Medicine Critical Care Medicine
PROC: 5A1D70Z Performance of Urinary Filtration, Intermittent, Less than 6 Hours Per Day (ICD-10-PCS; 2017-12-18)
PROC: 0W993ZZ Drainage of Right Pleural Cavity, Percutaneous Approach (ICD-10-PCS; principal; 2017-12-19)
PROC: 5A1D70Z Performance of Urinary Filtration, Intermittent, Less than 6 Hours Per Day (ICD-10-PCS; 2017-12-20)
PROC: 5A1D70Z Performance of Urinary Filtration, Intermittent, Less than 6 Hours Per Day (ICD-10-PCS; 2017-12-21)
PROC: 5A1D70Z Performance of Urinary Filtration, Intermittent, Less than 6 Hours Per Day (ICD-10-PCS; 2017-12-25)
PROC: 0W993ZZ Drainage of Right Pleural Cavity, Percutaneous Approach (ICD-10-PCS; 2017-12-26)
PROC: 5A1D70Z Performance of Urinary Filtration, Intermittent, Less than 6 Hours Per Day (ICD-10-PCS; 2017-12-27)
PROC: 0W993ZZ Drainage of Right Pleural Cavity, Percutaneous Approach (ICD-10-PCS; 2018-01-03)
DX: J18.9 Pneumonia, unspecified organism (principal); N18.6 End stage renal disease; I13.2 Hypertensive heart and chronic kidney disease with heart failure and with stage 5 chronic kidney disease, or end stage renal disease; E10.649 Type 1 diabetes mellitus with hypoglycemia without coma; E10.65 Type 1 diabetes mellitus with hyperglycemia; E11.21 Type 2 diabetes mellitus with diabetic nephropathy; R09.02 Hypoxemia; I50.9 Heart failure, unspecified; Z79.4 Long term (current) use of insulin; E78.00 Pure hypercholesterolemia, unspecified; Z86.73 Personal history of transient ischemic attack (TIA), and cerebral infarction without residual deficits; Z99.2 Dependence on renal dialysis; E04.2 Nontoxic multinodular goiter; D64.9 Anemia, unspecified

== ENCOUNTER 2018-01-18 08:46 | Inpatient (IN) | payer OTHER ==
--- NOTE | 2018-01-18 09:51 | C.PDOC ---
History Of Present Illness 42 year old female with a past medical history of gastroparesis and chronic obstructive pulmonary disease (COPD) who presents to the emergency department with a complaint of abdominal pain and vomiting x2 days. Reports she had not eaten in 2 days. Denies chest pain, shortness of breath, and diarrhea. Of note, patient receives dialysis on Saturday, Saturday, and Saturday. Last dialysis was yesterday, 01/17/2018. PMD: Dr. Rafita Martinez MD Time Seen by Provider: 01/18/18 09:16 Chief Complaint (Nursing): Abdominal Pain History Per: Patient History/Exam Limitations: no limitations Onset/Duration Of Symptoms: Days Past Medical History Reviewed: Historical Data, Nursing Documentation, Vital Signs Vital Signs: Last Vital Signs Temp 98.1 F 01/18/18 16:38 Pulse 90 01/18/18 16:38 Resp 20 01/18/18 16:38 BP 194/103 H 01/18/18 16:38 Pulse Ox 98 01/18/18 18:23 - Medical History PMH: Diabetes (IDDM), Gastritis, HTN, Hypercholesterolemia, End Stage Renal Disease, Chronic Kidney Disease Denies: Hyperthyroidism Surgical History: - [facility] Procedures (12/18/17) DRAINAGE OF RIGHT PLEURAL CAVITY, PERCUTANEOUS APPROACH (12/18/17) ESOPHAGOGASTRODUODENOSCOPY [EGD] W/CLOSED BIOPSY (06/18/15) EXCISION OF STOMACH, ENDO, DIAGN (09/02/16) OTHER SKIN & SUBQ I D (08/07/15) PERFORMANCE OF URINARY FILTRATION, MULTIPLE (09/02/16) ULTRASONOGRAPHY OF LEFT UPPER EXTREMITY VEINS (09/02/16) Family History: States: Unknown Family Hx - Social History Hx Tobacco Use: No Hx Alcohol Use: No Hx Substance Use: No - Immunization History Hx Tetanus Toxoid Vaccination: No Hx Influenza Vaccination: No Hx Pneumococcal Vaccination: No Review Of Systems Except As Marked, All Systems Reviewed And Found Negative. (As per HPI, otherwise negative) Cardiovascular: Negative for: Chest Pain Respiratory: Negative for: Shortness of Breath Gastrointestinal: Positive for: Vomiting, Abdominal Pain. Negative for: Diarrhea Physical Exam - Physical Exam Appears: Well, Non-toxic, Toxic Skin: Normal Color, Warm, Dry Cardiovascular: Rhythm Regular, No Murmur Respiratory: Normal Breath Sounds, No Decreased Breath Sounds, No Accessory Muscle Use Gastrointestinal/Abdominal: No Normal Exam, Bowel Sounds (Normal), Soft, Tenderness (To the periumbilical reagion ), No Guarding, No Rebound Extremity: Normal ROM (A-v Fistula noted to the left arm with thrill ) Neurological/Psych: Oriented x3 Gait: Steady ED Course And Treatment - Laboratory Results Result Diagrams: 01/18/18 10:24 01/18/18 13:32 ECG Rhythm: Sinus Tachycardia (at 106 bpm. Normal axis with left posterior fascicular block. ), Nonspecific Changes (ST and T waves changes) O2 Sat by Pulse Oximetry: 98 (RA) Pulse Ox Interpretation: Normal Medical Decision Making Medical Decision Making: Time: 933 --EKG --Beta-HCG --CMP --Lipase --Magnesium --Troponin I --CBC w/ diff --Morphine 2 mg IVP --zofran 4 mg IVP --Pantoprazole 40 mg IVP --Abd & Pelvis CT --Reevaluation Time: 1221 --Abd CT FINDINGS: LOWER THORAX: Pulmonary vascular congestion/ edema with large right pleural effusion with right lower lobe atelectasis LIVER: Unremarkable. No gross lesion or ductal dilatation. GALLBLADDER AND BILE DUCTS: Minimal cholelithiasis with gallbladder distention and nonspecific wall thickening. PANCREAS: Unremarkable. No gross lesion or ductal dilatation. SPLEEN: Unremarkable. ADRENALS: Unremarkable. No mass. KIDNEYS AND URETERS: Unremarkable. No hydronephrosis. No solid mass. VASCULATURE: Heavy calcific atherosclerosis. No aortic aneurysm. BOWEL: Unremarkable. No obstruction. No gross mural thickening. APPENDIX: Not well-visualized. PERITONEUM: Anasarca. Moderate to large volume ascites. No free air. LYMPH NODES: Unremarkable. No enlarged lymph nodes. BLADDER: Unremarkable. REPRODUCTIVE: Unremarkable. BONES: No acute fracture. OTHER FINDINGS: None. IMPRESSION: Pulmonary vascular congestion/edema with large right pleural effusion and right lower lobe atelectasis. Moderate to large volume abdominal ascites. Minimal cholelithiasis with gallbladder distention and nonspecific wall thickening. Findings are equivocal for cholecystitis. If there is clinical concern for acute cholecystitis, nuclear medicine HIDA scan can be obtained to evaluate for patency of the cystic duct. Additional findings as above Time: 1236 --General Surgery Consult: Dr. Giuliano Davis MD for abdominal pain. --Surgical consult notified and approved. --Admit to hospital routine: As inpatient for abdominal pain and hyperglycemia under the care of Dr. Walker who admits for Dr. Martinez. Disposition Discussed With : Patrick García - Disposition Disposition: HOSPITALIZED Disposition Time: 12:33 Condition: FAIR - Clinical Impression Clinical Impression: Abdominal pain, Hyperglycemia
[2018-01-18 10:27] LABS: BASO # 0.1 K/uL (0.0-0.2); BASO % 0.8 % (0.0-2.0); EOS # 0.2 K/uL (0.0-0.7); EOS % 2.8 % (0.0-4.0); HEMOGLOBIN 10.8 g/dL (11.0-16.0); LYMPH # 0.9 K/uL (1.0-4.3); LYMPH % 12.2 % (20.0-40.0); MEAN CELL VOLUME 89.6 fL (81.0-99.0); MEAN CORPUSCULAR HEMOGLOBIN 28.8 pg (27.0-31.0); MEAN CORPUSCULAR HGB CONC 32.1 g/dL (33.0-37.0); MEAN PLATELET VOLUME 10.2 fL (7.2-11.7); MONO # 0.7 K/uL (0.0-0.8); MONO % 8.8 % (0.0-10.0); NEUT # 5.7 K/uL (1.8-7.0); NEUT % 75.4 % (50.0-75.0); RBC 3.76 Mil/uL (3.80-5.20); RED CELL DISTRIBUTION WIDTH 17.1 % (11.5-14.5); WHITE BLOOD COUNT 7.6 K/uL (4.8-10.8)
[2018-01-18 10:56] LABS: TROPONIN I 0.017 ng/mL (0.00-0.120)
[2018-01-18 11:04] LABS: ALB/GLOB RATIO 0.7 (1.0-2.1); ALBUMIN 3.6 g/dL (3.5-5.0); CALCIUM 9.1 mg/dl (8.6-10.4)
[2018-01-18] MEDS ORDERED: (Novolin R) Insulin Human Regular 100 units/ml vial IV ONE (11:10)
[2018-01-18] MEDS ORDERED: (Novolin R) Insulin Human Regular 100 units/ml vial ONE ×2 (11:14→14:58)
[2018-01-18 11:30] LABS: VENOUS BLOOD GAS PCO2 45 mmHg (40-60); VENOUS BLOOD GAS PO2 60 mm/Hg (30-55); VENOUS BLOOD PH 7.42 (7.32-7.43)
--- NOTE | 2018-01-18 12:23 | CT ---
PROCEDURE: CT Abdomen and Pelvis without intravenous contrast HISTORY: abd pain COMPARISON: None. TECHNIQUE: Contiguous images were obtained from the domes of the diaphragms to the upper thighs without the administration of intravenous contrast. Oral contrast was not administered. Radiation dose: Total exam DLP = 393.6 mGy-cm. This CT exam was performed using one or more of the following dose reduction techniques: Automated exposure control, adjustment of the mA and/or kV according to patient size, and/or use of iterative reconstruction technique. FINDINGS: LOWER THORAX: Pulmonary vascular congestion/ edema with large right pleural effusion with right lower lobe atelectasis LIVER: Unremarkable. No gross lesion or ductal dilatation. GALLBLADDER AND BILE DUCTS: Minimal cholelithiasis with gallbladder distention and nonspecific wall thickening. PANCREAS: Unremarkable. No gross lesion or ductal dilatation. SPLEEN: Unremarkable. ADRENALS: Unremarkable. No mass. KIDNEYS AND URETERS: Unremarkable. No hydronephrosis. No solid mass. VASCULATURE: Heavy calcific atherosclerosis. No aortic aneurysm. BOWEL: Unremarkable. No obstruction. No gross mural thickening. APPENDIX: Not well-visualized. PERITONEUM: Anasarca. Moderate to large volume ascites. No free air. LYMPH NODES: Unremarkable. No enlarged lymph nodes. BLADDER: Unremarkable. REPRODUCTIVE: Unremarkable. BONES: No acute fracture. OTHER FINDINGS: None. IMPRESSION: Pulmonary vascular congestion/edema with large right pleural effusion and right lower lobe atelectasis. Moderate to large volume abdominal ascites. Minimal cholelithiasis with gallbladder distention and nonspecific wall thickening. Findings are equivocal for cholecystitis. If there is clinical concern for acute cholecystitis, nuclear medicine HIDA scan can be obtained to evaluate for patency of the cystic duct. Additional findings as above
--- NOTE | 2018-01-18 13:49 | CP.PCM.CON ---
History of Present Illness - History of Present Illness History of Present Illness: General Surgery: Dr Davis pt is a 42F with PMH of gastroparesis, htn, diabetes, copd and ESRD. Most PMH in the EMR is unclear and blank. Pt reports she has had abdominal pain x 2 days. Pain is located mainly aneta-umbilical and RUQ. Had 2 episodes of associated emesis, nonbloody and nonbillous. States she has been unable to tolerate food. Having regular bowel movements. Denies any fevers or chills, headaches, sob or chest pain. CT scan with extensive ascites. Cholelithiasis. GB wall thickening which may be reactive to ascites. There is a large right pleural effusion as well. Labs pertinent for blood sugar of 800, Alk phos 1200, Tbili 2.7. There is no leukocytosis or elevated AST/ALT. Review of Systems - Review of Systems All systems: reviewed and no additional remarkable complaints except (as per hpi ) Past Patient History - Infectious Disease Hx of Infectious Diseases: None - Past Medical History & Family History Past Medical History?: Yes - Past Social History Smoking Status: Never Smoked - CARDIAC Hx Hypercholesterolemia: Yes Hx Hypertension: Yes - PULMONARY Hx Respiratory Disorders: No - NEUROLOGICAL HX Cerebrovascular Accident: Yes (01/2016) - HEENT Hx HEENT Problems: Yes Other/Comment: Wears Eyeglasses - RENAL Hx Chronic Kidney Disease: Yes - ENDOCRINE/METABOLIC Hx Hyperthyroidism: No - HEMATOLOGICAL/ONCOLOGICAL Hx Blood Disorders: No Hx Blood Transfusions: Yes Hx Blood Transfusion Reaction: No - INTEGUMENTARY Hx Dermatological Problems: No - MUSCULOSKELETAL/RHEUMATOLOGICAL Hx Musculoskeletal Disorders: No Hx Back Pain: Yes Hx Falls: Yes (3 months ago) - GASTROINTESTINAL Hx Gastritis: Yes - GENITOURINARY/GYNECOLOGICAL Hx Genitourinary Disorders: No - PSYCHIATRIC Hx Substance Use: No - SURGICAL HISTORY Hx Surgeries: Yes Hx Section: Yes Other/Comment: Insertion Of HD Cath on the R Internal Jugular; left forearm graft for dialysis. - ANESTHESIA Hx Anesthesia: Yes Hx Anesthesia Reactions: No Hx Malignant Hyperthermia: No Meds Allergies/Adverse Reactions: Allergies Allergy/AdvReac Type Severity Reaction Status Date / Time No Known Allergies Allergy Verified 01/18/18 08:51 Physical Exam - Constitutional Appears: Non-toxic, No Acute Distress - Head Exam Head Exam: NORMAL INSPECTION - Eye Exam Eye Exam: Normal appearance - ENT Exam ENT Exam: Mucous Membranes Dry - Respiratory Exam Respiratory Exam: absent: Accessory Muscle Use, Respiratory Distress - Cardiovascular Exam Cardiovascular Exam: REGULAR RHYTHM. absent: Tachycardia Additional comments: hypertensive 180/100 during exam - GI/Abdominal Exam GI & Abdominal Exam: Firm, Hypoactive Bowel Sounds, Tenderness (RUQ and periumbilical). absent: Distended, Guarding, Hernia - Extremities Exam Extremities exam: Negative for: pedal edema - Neurological Exam Neurological exam: Alert, Oriented x3 - Psychiatric Exam Psychiatric exam: Normal Affect, Normal Mood Results - Vital Signs Recent Vital Signs: Last Vital Signs Temp 97.6 F 01/18/18 08:52 Pulse 102 H 01/18/18 08:52 Resp 22 01/18/18 08:52 BP 185/102 H 01/18/18 08:52 Pulse Ox 98 01/18/18 13:37 - Labs Result Diagrams: 01/18/18 10:24 01/18/18 13:32 Labs: Laboratory Results - last 24 hr 01/18/18 01/18/18 01/18/18 10:24 10:24 10:24 WBC 7.6 RBC 3.76 L Hgb 10.8 L Hct 33.7 L MCV 89.6 D MCH 28.8 MCHC 32.1 L RDW 17.1 H Plt Count 176 MPV 10.2 Neut % (Auto) 75.4 H Lymph % (Auto) 12.2 L [place] % (Auto) 8.8 Eos % (Auto) 2.8 Baso % (Auto) 0.8 Neut # (Auto) 5.7 Lymph # (Auto) 0.9 L [place] # (Auto) 0.7 Eos # (Auto) 0.2 Baso # (Auto) 0.1 pO2 VBG pH VBG pCO2 VBG HCO3 VBG Total CO2 VBG O2 Sat (Calc) VBG Base Excess VBG Potassium Glucose Lactate Crit Value Called To Crit Value Called By Crit Value Read Back Blood Gas Notified Time Sodium 132 Potassium 4.0 Chloride 88 L Carbon Dioxide 28 Anion Gap 21 H BUN 20 H Creatinine 4.1 H Est GFR ( Amer) 14 Est GFR (Non-Af Amer) 12 POC Glucose (mg/dL) Random Glucose 836 H* D Calcium 9.1 Magnesium 2.0 Total Bilirubin 2.7 H AST 27 ALT 25 Alkaline Phosphatase 1206 H Troponin I 0.0170 Total Protein 9.2 H Albumin 3.6 Globulin 5.6 H Albumin/Globulin Ratio 0.7 L Lipase 175 Beta HCG, Quant < 2.39 Venous Blood Potassium 01/18/18 01/18/18 11:26 13:08 WBC RBC Hgb Hct MCV MCH MCHC RDW Plt Count MPV Neut % (Auto) Lymph % (Auto) [place] % (Auto) Eos % (Auto) Baso % (Auto) Neut # (Auto) Lymph # (Auto) [place] # (Auto) Eos # (Auto) Baso # (Auto) pO2 60 H VBG pH 7.42 VBG pCO2 45 VBG HCO3 27.9 VBG Total CO2 30.6 H VBG O2 Sat (Calc) 91.5 H VBG Base Excess 4.0 H VBG Potassium 4.3 Glucose > 750 H* D Lactate 1.2 Crit Value Called To Er, Crit Value Called By Mushtaq lay,snuff box finisher Crit Value Read Back Y Blood Gas Notified Time 1150 Sodium 133.0 Potassium Chloride 95.0 L Carbon Dioxide Anion Gap BUN Creatinine Est GFR ( Amer) Est GFR (Non-Af Amer) POC Glucose (mg/dL) > 500 H* Random Glucose Calcium Magnesium Total Bilirubin AST ALT Alkaline Phosphatase Troponin I Total Protein Albumin Globulin Albumin/Globulin Ratio Lipase Beta HCG, Quant Venous Blood Potassium 4.3 Assessment & Plan - Assessment and Plan (Free Text) Assessment: 42F with undifferentiated abdominal pain; r/o cholecystitis Plan: NPO IV fluids abx rec MRCP given lab findings recc GI consult pt would need to be medically optimized before surgery consider thoracentesis of right chest will d/w Dr Susan Yang, PGY3
[2018-01-18] MEDS ORDERED: Piperacill/Tazo 2.25gm in Dex 2.25 GM/50 ML BAG IVPB SCH (14:00)
[2018-01-18] MEDS ORDERED: (Novolin R) Insulin Human Regular 100 units/ml vial IV STA (15:00)
[2018-01-18] MEDS ORDERED: Home Med 1 UNIT (Valsartan [Diovan] 320 MG) PO SCH (15:45)
[2018-01-18] MEDS ORDERED: CHLORZOXAZONE 750 MG PO PRN ×2 (15:45→15:56)
--- NOTE | 2018-01-18 16:43 | MRI ---
PROCEDURE: Magnetic Resonance Cholangiopancreatography HISTORY: COMPARISON: None available. TECHNIQUE: Multiplanar, multisequence MR images of the abdomen were obtained, including heavily T2 weighted MRCP images of the biliary system. Rotating maximum intensity projection images of the biliary system were generated. FINDINGS: MRCP: Markedly limited evaluation of the MRCP sequences. The common bile duct is of a normal caliber. No evidence of choledocholithiasis. No intrahepatic biliary ductal dilatation. LIVER: Unremarkable. GALLBLADDER: No cholelithiasis. Mild wall thickening, likely reactive. SPLEEN: Unremarkable. PANCREAS: Poorly evaluated. ADRENALS: Poorly evaluated. KIDNEYS: Unremarkable. AORTA: No aneurysm. ASCITES: Moderate to large volume ascites. OTHER FINDINGS: Large right pleural effusion. IMPRESSION: Obvious cholelithiasis. Mild gallbladder wall thickening, likely reactive in the setting of ascites. Normal CBD without evidence of choledocholithiasis. Moderate to large volume ascites. Large right pleural effusion.
[2018-01-18] MEDS ORDERED: DiphenhydrAMINE 50 mg/ml Inj IVP STA (17:00)
[2018-01-18] MEDS ORDERED: DiphenhydrAMINE 50 mg/ml Inj ONE (17:16)
[2018-01-18] MEDS ORDERED: Sodium Chloride 0.9% 1,000 ML IV SCH (17:45)
[2018-01-18] MEDS ORDERED: ARO IH SCH ×2 (18:00)
[2018-01-18] MEDS ORDERED: MOMETASONE IH SCH ×2 (18:00)
[2018-01-18] MEDS ORDERED: FORMOTEROL IH SCH ×2 (18:00)
[2018-01-18] MEDS ORDERED: Labetalol 25mg/5ml Syringe IVP STA (18:11)
[2018-01-18] MEDS ORDERED: Labetalol 25mg/5ml Syringe ONE (18:17)
[2018-01-18] MEDS ORDERED: Morphine 4 MG/ML VIAL ONE (19:03)
[2018-01-18] MEDS ORDERED: (Lantus) Insulin Glargine, Recombinant SC ONE (19:04)
[2018-01-18] MEDS: (Lantus) Insulin Glargine, Recombinant SC SCH (19:07)
[2018-01-18] MEDS: Piperacill/Tazo 2.25gm in Dex 2.25 GM/50 ML BAG IVPB SCH (21:46)
[2018-01-18] MEDS: (Novolog) Insulin Aspart, Recombinant 100 u/ml 10 ml vial SC SCH (21:56)
[2018-01-19] MEDS: Piperacill/Tazo 2.25gm in Dex 2.25 GM/50 ML BAG IVPB SCH ×4 (04:40→22:06)
--- NOTE | 2018-01-19 06:35 | CP.PCM.PN ---
Subjective - Date & Time of Evaluation Date of Evaluation: 01/19/18 Time of Evaluation: 06:35 - Subjective Subjective: General Surgery: Dr Davis Pt S&E. NEETU. Reports she is feeling minimally better. Still with RUQ pain however. PT has not eaten since admission. Denies N/V, F/C. MRCP shows no stones in the ducts. Pt is for HIDA today. Procedure/examination explained. Pt is agreeable. Objective - Vital Signs/Intake and Output Vital Signs (last 24 hours): Temp Pulse Resp BP Pulse Ox 98.3 F 108 H 20 133/77 94 L 01/18/18 23:20 01/19/18 04:09 01/18/18 23:20 01/18/18 23:20 01/18/18 23:20 Intake and Output: 01/18/18 01/19/18 18:59 06:59 Intake Total 100 Balance 100 - Medications Medications: Current Medications Amlodipine Besylate (Norvasc) 5 mg PO DAILY [facility] Last Admin: 01/18/18 16:36 Dose: 5 mg Clonidine HCl (Catapres) 0.1 mg PO TID [facility] Last Admin: 01/18/18 18:10 Dose: Not Given Fluticasone Propionate (Flonase) 1 spr NS DAILY [facility] Gabapentin (Neurontin) 600 mg PO DAILY [facility] Heparin Sodium (Porcine) (Heparin) 5,000 units SC Q12 [facility] Last Admin: 01/18/18 22:24 Dose: 5,000 units Home Med (Beclomethasone Dipropionate [Qvar 80 Mcg]) 0.08 mg IH DAILY [facility] Home Med (Lixisenatide [Adlyxin]) 20 mcg SQ DAILY [facility] Home Med (Chlorzoxazone [Lorzone]) 750 mg PO TID PRN PRN Reason: [facility] Home Med (Ramelteon [Rozerem]) 8 mg PO DAILY [facility] Home Med (Mometasone/Formoterol [Dulera 200 Mcg/5 Mcg Inhaler]) 1 dianna IH QID [facility] Home Med (Milnacipran Hcl [Savella]) 50 mg PO DAILY [facility] Home Med (Iron/Folate 9/Vit C/D3/B6/B12 [Nufera Tablet]) 1 each PO DAILY [facility] Piperacillin Sod/Tazobactam Sod (Zosyn 2.25 Gm Iv Premix) 2.25 gm in 50 mls @ 100 mls/hr IVPB Q6H [facility] Last Admin: 01/19/18 04:40 Dose: 100 mls/hr Insulin Aspart (Novolog) 0 unit SC ACHS GUI PRN Reason: Protocol Last Admin: 01/18/18 21:56 Dose: Not Given Insulin Glargine (Lantus) 12 unit SC BIDPC [facility] Last Admin: 01/18/18 19:07 Dose: 12 units Losartan Potassium (Cozaar) 100 mg PO DAILY [facility] Last Admin: 01/18/18 16:36 Dose: 100 mg Morphine Sulfate (Morphine) 2 mg IVP Q4 PRN PRN Reason: Pain, severe (8-10) Last Admin: 01/18/18 19:06 Dose: 2 mg Oxybutynin Chloride (Ditropan Xl) 5 mg PO DAILY [facility] Pantoprazole Sodium (Protonix Ec Tab) 40 mg PO DAILY [facility] Rosuvastatin Calcium (Crestor) 20 mg PO HS GUI Tiotropium [place] (Spiriva) 18 mcg IH DAILY [facility] - Labs Labs: 01/18/18 10:24 01/18/18 13:32 - Constitutional Appears: Non-toxic, No Acute Distress - Head Exam Head Exam: NORMAL INSPECTION - ENT Exam ENT Exam: Mucous Membranes Moist - Respiratory Exam Respiratory Exam: Decreased Breath Sounds (worse on right). absent: Accessory Muscle Use, Respiratory Distress - Cardiovascular Exam Cardiovascular Exam: REGULAR RHYTHM. absent: Tachycardia - GI/Abdominal Exam GI & Abdominal Exam: Distended, Soft, Tenderness (RUQ). absent: Firm, Guarding , Rigid - Extremities Exam Extremities Exam: absent: Pedal Edema - Neurological Exam Neurological Exam: Alert, Awake, Oriented x3 - Psychiatric Exam Psychiatric exam: Normal Affect, Normal Mood Assessment and Plan - Assessment and Plan (Free Text) Assessment: 42F with multiple medical comorbidities; r/o cholecystitis Plan: cont abx rec NPO but pt started on diet for HIDA today - may not do if pt is eating if pt does need surgery will need medical clearance right sided effusion should be addressed further recs pending work-up will d/w Dr Susan Yang, PGY3
[2018-01-19] MEDS: (Novolog) Insulin Aspart, Recombinant 100 u/ml 10 ml vial SC SCH ×3 (07:59→17:26)
[2018-01-19] MEDS ORDERED: DiphenhydrAMINE 50 mg/ml Inj IVP STA (08:53)
[2018-01-19] MEDS: (Lantus) Insulin Glargine, Recombinant SC SCH ×2 (09:14→22:05)
[2018-01-19] MEDS: Pantoprazole 40 mg EC Tab PO SCH (09:14)
[2018-01-19] MEDS ORDERED: BECLOMETHASONE DIPROPIONATE 0.08 MG IH SCH ×2 (10:00)
[2018-01-19] MEDS ORDERED: B6 PO SCH ×2 (10:00)
[2018-01-19] MEDS ORDERED: FOLATE PO SCH ×2 (10:00)
[2018-01-19] MEDS ORDERED: D3 PO SCH ×2 (10:00)
[2018-01-19] MEDS ORDERED: VIT C PO SCH ×2 (10:00)
[2018-01-19] MEDS ORDERED: MILNACIPRAN HCL 50 MG PO SCH ×2 (10:00)
[2018-01-19] MEDS ORDERED: B12 PO SCH ×2 (10:00)
[2018-01-19] MEDS ORDERED: [UNRECOGNIZED DRUG - OTHER] SQ SCH ×2 (10:00)
[2018-01-19] MEDS ORDERED: RAMELTEON 8 MG PO SCH ×2 (10:00)
[2018-01-19] MEDS ORDERED: IRON PO SCH ×2 (10:00)
[2018-01-19] MEDS ORDERED: Tiotropium 18 mcg Cap For Inhalation IH SCH (10:00)
[2018-01-19] MEDS: Fluticasone Nasal 50 mcg/Spray NS SCH (10:27)
--- NOTE | 2018-01-19 12:43 | CP.PCM.HP ---
Past Patient History - Infectious Disease Hx of Infectious Diseases: None - Past Medical History & Family History Past Medical History?: Yes - Past Social History Smoking Status: Never Smoked - CARDIAC Hx Cardiac Disorders: Yes Hx Hypercholesterolemia: Yes Hx Hypertension: Yes - PULMONARY Hx Respiratory Disorders: No Hx Asthma: Yes - NEUROLOGICAL Hx Neurological Disorder: Yes HX Cerebrovascular Accident: Yes (01/2016, left sided weakness) - HEENT Hx HEENT Problems: Yes Other/Comment: Wears Eyeglasses - RENAL Date of Last Dialysis Treatment: 01/17/18 - ENDOCRINE/METABOLIC Hx Endocrine Disorders: Yes Hx Diabetes Mellitus Type 2: Yes - HEMATOLOGICAL/ONCOLOGICAL Hx Blood Disorders: Yes Hx Anemia: Yes Hx Blood Transfusions: Yes - INTEGUMENTARY Hx Dermatological Problems: No - MUSCULOSKELETAL/RHEUMATOLOGICAL Hx Musculoskeletal Disorders: Yes Hx Back Pain: Yes Hx Falls: Yes (3 months ago) Hx Spinal Stenosis: Yes Other/Comment: uses walker at home - GASTROINTESTINAL Hx Gastrointestinal Disorders: Yes Hx Gastritis: Yes Hx Nausea: Yes Other/Comment: Hx of gastroparesis as per pt. - GENITOURINARY/GYNECOLOGICAL Hx Genitourinary Disorders: No - PSYCHIATRIC Hx Substance Use: No - SURGICAL HISTORY Hx Surgeries: Yes Hx Section: Yes Other/Comment: Insertion Of HD Cath on the R Internal Jugular; left forearm graft for dialysis. - ANESTHESIA Hx Anesthesia: Yes Hx Anesthesia Reactions: No Hx Malignant Hyperthermia: No Has any member of the family had a problem w/ anesthesia?: No Meds Allergies/Adverse Reactions: Allergies Allergy/AdvReac Type Severity Reaction Status Date / Time No Known Allergies Allergy Verified 01/18/18 08:51 Results - Vital Signs Recent Vital Signs: Last Vital Signs Temp 98.6 F 01/19/18 09:00 Pulse 98 H 01/19/18 09:00 Resp 18 01/19/18 09:00 BP 153/86 H 01/19/18 09:00 Pulse Ox 98 01/19/18 09:00 - Labs Result Diagrams: 01/18/18 10:24 01/18/18 13:32 Labs: Laboratory Results - last 24 hr 01/18/18 01/18/18 01/18/18 13:08 13:32 16:42 POC Glucose (mg/dL) > 500 H* 375 H Random Glucose 655 H* D Serum Ketones 01/18/18 01/18/18 01/18/18 18:41 19:22 21:51 POC Glucose (mg/dL) 393 H 283 H Random Glucose Serum Ketones Neg 01/19/18 01/19/18 06:11 11:49 POC Glucose (mg/dL) 170 H 97 Random Glucose Serum Ketones
[2018-01-19] MEDS ORDERED: DiphenhydrAMINE 50 mg/ml Inj IVP PRN (13:08)
[2018-01-19] MEDS ORDERED: DiphenhydrAMINE 50 mg/ml Inj IVP SCH (14:00)
--- NOTE | 2018-01-19 14:56 | CP.PCM.CON ---
History of Present Illness - History of Present Illness History of Present Illness: 42 year old female with a past medical history of gastroparesis and chronic obstructive pulmonary disease (COPD) who presents to the emergency department with a complaint of abdominal pain and vomiting x2 days. Reports she had not eaten in 2 days. Denies chest pain, shortness of breath, and diarrhea. Started on IV antibiotics for cholecystitis Of note, patient receives dialysis on Saturday, Saturday, and Saturday. Last dialysis was yesterday, 01/17/2018. P - Medical History PMH: Diabetes (IDDM), Gastritis, HTN, Hypercholesterolemia, End Stage Renal Disease, Chronic Kidney Disease Denies: Hyperthyroidism Surgical History: - [facility] Procedures (12/18/17) DRAINAGE OF RIGHT PLEURAL CAVITY, PERCUTANEOUS APPROACH (12/18/17) ESOPHAGOGASTRODUODENOSCOPY [EGD] W/CLOSED BIOPSY (06/18/15) EXCISION OF STOMACH, ENDO, DIAGN (09/02/16) OTHER SKIN & SUBQ I D (08/07/15) PERFORMANCE OF URINARY FILTRATION, MULTIPLE (09/02/16) ULTRASONOGRAPHY OF LEFT UPPER EXTREMITY VEINS (09/02/16) Review of Systems - Review of Systems All systems: reviewed and no additional remarkable complaints except - Constitutional Constitutional: As Per HPI - EENT Eyes: absent: As Per HPI, Blind Spots, Blurred Vision, Change in Vision, Decreased Night Vision, Diplopia, Discharge, Dry Eye, Exophthalmos, Floaters, Irritation, Itchy Eyes, Loss of Peripheral Vision, Pain, Photophobia, Requires Corrective Lenses, Sees Flashes, Spots in Vision, Tunnel Vision, Other Visual Disturbances, Loss of Vision, Other Ears: absent: As Per HPI, Decreased Hearing, Ear Discharge, Ear Pain, Tinnitus, Abnormal Hearing, Disequilibrium, Dizziness, Other Nose/Mouth/Throat: absent: As Per HPI, Epistaxis, Nasal Congestion, Nasal Discharge, Nasal Obstruction, Nasal Trauma, Nose Pain, Post Nasal Drip, Sinus Pain, Sinus Pressure, Bleeding Gums, Change in Voice, Dental Pain, Dry Mouth, Dysphagia, Halitosis, Hoarsness, Lip Swelling, Mouth Lesions, Mouth Pain, Odynophagia, Sore Throat, Throat Swelling, Tongue Swelling, Facial Pain, Neck Pain, Neck Mass, Other - Breasts Breasts: absent: As Per HPI, Change in Shape, Mass, Pain, Nipple Discharge, Nipple Inversion, Skin Changes, Swelling, Other - Cardiovascular Cardiovascular: absent: As Per HPI, Acrocyanosis, Chest Pain, Chest Pain at Rest , Chest Pain with Activity, Claudication, Diaphoresis, Dyspnea, Dyspnea on Exertion, Edema, Irregular Heart Rhythm, Pain Radiating to Arm/Neck/Jaw, Leg Edema, Leg Ulcers, Lightheadedness, Orthopnea, Palpitations, Paroxysmal Nocturnal Dyspnea, Pedal Edema, Radiating Pain, Rapid Heart Rate, Slow Heart Rate, Syncope, Other - Respiratory Respiratory: absent: As Per HPI, Cough, Dyspnea, Hemoptysis, Dyspnea on Exertion , Wheezing, Snoring, Stridor, Pain on Inspiration, Chest Congestion, Excessive Mucous Production, Change in Mucous Color, Pain with Coughing, Other - Gastrointestinal Gastrointestinal: As Per HPI - Genitourinary Genitourinary: As Per HPI. absent: Change in Urinary Stream, Difficulty Urinating, Dysuria, Flank Pain, Hematuria, Pyuria, Nocturia, Urinary Incontinence, Urinary Frequency, Urinary Hesitance, Urinary Urgency, Voiding Freq/Small Amts, Freq UTI, Hx Renal/Bladder Calculi, Hx /Renal Surgery, Bladder Distension, Other - Reproductive: Female Reproductive:Female: absent: As Per HPI, Amenorrhea, Amenorrhea/ Control, Currently Menstual, Cycle <21 Days, Cycle >35 Days, Cycle Variable, Menses 1-7 Days, Menses >/= 8 Days, Menses Variable, Cycle > 4 Weeks Between, No Menses for 6 Months, Heavy Menses, Light Menses, Normal Menses, Spotting Between Cycles , S/P Hysterectomy, Menopausal, Post Menopausal, Premenarche, Abnormal Vaginal Bleeding, Dysmenorrhea, Dyspareunia, Genital Lesions, Genital Pruritis, Pelvic Pain, Prolapse Symptoms, Sexual Dysfunction, Vaginal Discharge, Vaginal Dryness , Vaginal Odor, Vaginal Pruritis, Other - Menstruation Menstruation: absent: As Per HPI, Amenorrhea, Amenorrhea/ Control, Currently Menstual, Cycle <21 Days, Cycle >35 Days, Cycle Variable, Menses 1-7 Days, Menses >/= 8 Days, Menses Variable, Cycle > 4 Weeks Between, No Menses for 6 Months, Heavy Menses, Light Menses, Normal Menses, Spotting Between Cycles , S/P Hysterectomy, Menopausal, Post Menopausal, Premenarche, Abnormal Vaginal Bleeding, Dysmenorrhea, Other - Musculoskeletal Musculoskeletal: absent: As Per HPI, Abnormal Gait, Arthralgias, Atrophy, Back Pain, Deformity, Joint Swelling, Limited Range of Motion, Loss of Height, Muscle Cramps, Muscle Weakness, Myalgias, Neck Pain, Numbness, Radiating Pain into Limb, Stiffness, Tingling, Other - Integumentary Integumentary: absent: As Per HPI, Acne, Alopecia, Bleeding Lesions, Change in Hair, Change in Nails, Change in Pigmentation, Changing Lesions, Dry Skin, Erythema, Furuncle, Hirsutism, Lesions, New Lesions, Non-Healing Lesions, Photosensitivity, Pruritus, Rash, Skin Pain, Skin Ulcer, Sores, Striae, Swelling , Unusual Bruising, Wounds, Jaundice, Other - Neurological Neurological: absent: As Per HPI, Abnormal Gait, Abnormal Hearing, Abnormal Movements, Abnormal Speech, Behavioral Changes, Burning Sensations, Confusion, Convulsions, Disequilibrium, Dizziness, Numbness, Focal Weakness, Frequent Falls , Headaches, Lack of Coordination, Loss of Vision, Memory Loss, Paresthesias, Radicular Pain, Restless Legs, Sensory Deficit, Syncope, Tingling, Tremor, Vertigo, Weakness, Other Visual Disturbances, Other - Psychiatric Psychiatric: absent: As Per HPI, Abnormal Sleep Pattern, Anhedonia, Anxiety, Auditory Hallucinations, Behavioral Changes, Change in Appetite, Change in Libido, Confusion, Depression, Difficulty Concentrating, Hallucinations, Homicidal Ideation, Hopelessness, Irritability, Memory Loss, Mood Swings, Panic Attacks, Paranoia, Suicidal Ideation, Visual Hallucinations, Tactile Hallucinations, Other - Endocrine Endocrine: absent: As Per HPI, Change in Body Appearance, Change in Libido, Cold Intolorance, Deepening of Voice, Excessive Sweating, Fatigue, Flushing, Heat Intolorance, Increase in Ring/Shoe/Hat Size, Palpitations, Polydipsia, Polyphagia, Polyuria, Other - Hematologic/Lymphatic Hematologic: absent: As Per HPI, Easy Bleeding, Easy Bruising, Lymphadenopathy, Other Past Patient History - Infectious Disease Hx of Infectious Diseases: None - Past Medical History & Family History Past Medical History?: Yes - Past Social History Smoking Status: Never Smoked - CARDIAC Hx Cardiac Disorders: Yes Hx Hypercholesterolemia: Yes Hx Hypertension: Yes - PULMONARY Hx Respiratory Disorders: No Hx Asthma: Yes - NEUROLOGICAL Hx Neurological Disorder: Yes HX Cerebrovascular Accident: Yes (01/2016, left sided weakness) - HEENT Hx HEENT Problems: Yes Other/Comment: Wears Eyeglasses - RENAL Date of Last Dialysis Treatment: 01/17/18 - ENDOCRINE/METABOLIC Hx Endocrine Disorders: Yes Hx Diabetes Mellitus Type 2: Yes - HEMATOLOGICAL/ONCOLOGICAL Hx Blood Disorders: Yes Hx Anemia: Yes Hx Blood Transfusions: Yes - INTEGUMENTARY Hx Dermatological Problems: No - MUSCULOSKELETAL/RHEUMATOLOGICAL Hx Musculoskeletal Disorders: Yes Hx Back Pain: Yes Hx Falls: Yes (3 months ago) Hx Spinal Stenosis: Yes Other/Comment: uses walker at home - GASTROINTESTINAL Hx Gastrointestinal Disorders: Yes Hx Gastritis: Yes Hx Nausea: Yes Other/Comment: Hx of gastroparesis as per pt. - GENITOURINARY/GYNECOLOGICAL Hx Genitourinary Disorders: No - PSYCHIATRIC Hx Substance Use: No - SURGICAL HISTORY Hx Surgeries: Yes Hx Section: Yes Other/Comment: Insertion Of HD Cath on the R Internal Jugular; left forearm graft for dialysis. - ANESTHESIA Hx Anesthesia: Yes Hx Anesthesia Reactions: No Hx Malignant Hyperthermia: No Has any member of the family had a problem w/ anesthesia?: No Meds Allergies/Adverse Reactions: Allergies Allergy/AdvReac Type Severity Reaction Status Date / Time No Known Allergies Allergy Verified 01/18/18 08:51 - Medications Medications: Current Medications Amlodipine Besylate (Norvasc) 5 mg PO DAILY [facility] Last Admin: 01/19/18 09:14 Dose: 5 mg Clonidine HCl (Catapres) 0.1 mg PO TID [facility] Last Admin: 01/19/18 14:01 Dose: 0.1 mg Diphenhydramine HCl (Benadryl) 25 mg IVP Q8 PRN PRN Reason: Itching / Pruritus Fluticasone Propionate (Flonase) 1 spr NS DAILY [facility] Last Admin: 01/19/18 10:27 Dose: 1 spr Gabapentin (Neurontin) 600 mg PO DAILY [facility] Last Admin: 01/19/18 09:14 Dose: 600 mg Heparin Sodium (Porcine) (Heparin) 5,000 units SC Q12 [facility] Last Admin: 01/19/18 09:14 Dose: 5,000 units Home Med (Beclomethasone Dipropionate [Qvar 80 Mcg]) 0.08 mg IH DAILY [facility] Home Med (Lixisenatide [Adlyxin]) 20 mcg SQ DAILY [facility] Home Med (Chlorzoxazone [Lorzone]) 750 mg PO TID PRN PRN Reason: [facility] Home Med (Ramelteon [Rozerem]) 8 mg PO DAILY [facility] Home Med (Mometasone/Formoterol [Dulera 200 Mcg/5 Mcg Inhaler]) 1 dianna IH QID [facility] Home Med (Milnacipran Hcl [Savella]) 50 mg PO DAILY [facility] Home Med (Iron/Folate 9/Vit C/D3/B6/B12 [Nufera Tablet]) 1 each PO DAILY [facility] Piperacillin Sod/Tazobactam Sod (Zosyn 2.25 Gm Iv Premix) 2.25 gm in 50 mls @ 100 mls/hr IVPB Q6H [facility] Last Admin: 01/19/18 09:14 Dose: 100 mls/hr Insulin Aspart (Novolog) 0 unit SC ACHS [facility] PRN Reason: Protocol Last Admin: 01/19/18 12:44 Dose: Not Given Insulin Glargine (Lantus) 12 unit SC Q12H [facility] Losartan Potassium (Cozaar) 100 mg PO DAILY [facility] Last Admin: 01/19/18 09:14 Dose: 100 mg Morphine Sulfate (Morphine) 2 mg IVP Q4 PRN PRN Reason: Pain, severe (8-10) Last Admin: 01/18/18 19:06 Dose: 2 mg Ondansetron HCl (Zofran Inj) 4 mg IVP Q4 PRN PRN Reason: Nausea/Vomiting Oxybutynin Chloride (Ditropan Xl) 5 mg PO DAILY [facility] Last Admin: 01/19/18 09:16 Dose: 5 mg Pantoprazole Sodium (Protonix Ec Tab) 40 mg PO DAILY [facility] Last Admin: 01/19/18 09:14 Dose: 40 mg Rosuvastatin Calcium (Crestor) 20 mg PO HS [facility] Tiotropium [place] (Spiriva) 18 mcg IH DAILY [facility] Physical Exam - Constitutional Appears: Non-toxic, Chronically Ill - Head Exam Head Exam: ATRAUMATIC, NORMAL INSPECTION, NORMOCEPHALIC - Eye Exam Eye Exam: PERRL. absent: Scleral icterus - ENT Exam ENT Exam: Mucous Membranes Dry, Normal External Ear Exam, Normal Oropharynx - Neck Exam Neck exam: Negative for: Lymphadenopathy - Respiratory Exam Respiratory Exam: Decreased Breath Sounds, Rhonchi - Cardiovascular Exam Cardiovascular Exam: REGULAR RHYTHM, +S1, +S2 - GI/Abdominal Exam GI & Abdominal Exam: Diminished Bowel Sounds, Distended, Guarding, Soft, Tenderness. absent: Organomegaly, Pulsatile Mass, Rebound, Rigid - Rectal Exam Rectal Exam: Deferred - Exam Exam: NORMAL INSPECTION - Extremities Exam Extremities exam: Positive for: pedal pulses present. Negative for: calf tenderness, pedal edema, tenderness - Back Exam Back exam: absent: CVA tenderness (L), CVA tenderness (R), paraspinal tenderness - Neurological Exam Neurological exam: Alert, CN II-XII Intact, Oriented x3, Reflexes Normal - Psychiatric Exam Psychiatric exam: Depressed - Skin Skin Exam: Dry Results - Vital Signs Recent Vital Signs: Last Vital Signs Temp 98.6 F 01/19/18 09:00 Pulse 96 H 01/19/18 14:00 Resp 20 01/19/18 14:00 BP 133/75 01/19/18 14:00 Pulse Ox 97 01/19/18 14:00 - Labs Result Diagrams: 01/18/18 10:24 01/18/18 13:32 Labs: Laboratory Results - last 24 hr 01/18/18 01/18/18 01/18/18 16:42 18:41 19:22 POC Glucose (mg/dL) 375 H 393 H Serum Ketones Neg 01/18/18 01/19/18 01/19/18 21:51 06:11 11:49 POC Glucose (mg/dL) 283 H 170 H 97 Serum Ketones Assessment & Plan (1) Cholecystitis Status: Acute (2) Abdominal pain Status: Acute (3) Hyperglycemia Status: Acute (4) JOSE MIGUEL (acute kidney injury) Status: Acute (5) Controlled type 2 diabetes mellitus with diabetic nephropathy Status: Acute (6) Diabetes mellitus with ESRD (end-stage renal disease) Status: Acute (7) Diabetes mellitus with chronic kidney disease Status: Acute (8) Diabetic nephropathy Status: Acute (9) ESRD (end stage renal disease) on dialysis Status: Acute (10) Intractable vomiting Status: Acute - Assessment and Plan (Free Text) Assessment: cont iv rx surgery on board await HIDA scan
[2018-01-19] MEDS ORDERED: Vancomycin 1 gm/NS 200 ml 1 GM/200 ML BAG IVPB STA (14:58)
[2018-01-19] MEDS ORDERED: Vancomycin 1 gm/NS 200 ml 1 GM/200 ML BAG IVPB ONE (16:00)
[2018-01-20] MEDS: Piperacill/Tazo 2.25gm in Dex 2.25 GM/50 ML BAG IVPB SCH ×4 (04:22→21:57)
[2018-01-20] MEDS: (Novolog) Insulin Aspart, Recombinant 100 u/ml 10 ml vial SC SCH ×4 (07:30→22:52)
--- NOTE | 2018-01-20 07:43 | CP.PCM.PN ---
Subjective - Date & Time of Evaluation Date of Evaluation: 01/20/18 Time of Evaluation: 07:39 - Subjective Subjective: General Surgery: Dr Davis Pt S&E. Reports minimal improvement in RUQ pain. Denies any further N/V, F/C. PT is for HIDA today. NPO til then. Objective - Vital Signs/Intake and Output Vital Signs (last 24 hours): Temp Pulse Resp BP Pulse Ox 97.9 F 92 H 20 144/87 100 01/19/18 23:25 01/20/18 00:25 01/19/18 23:25 01/19/18 23:25 01/19/18 23:25 Intake and Output: 01/20/18 01/20/18 06:59 18:59 Intake Total 150 Balance 150 - Medications Medications: Current Medications Amlodipine Besylate (Norvasc) 5 mg PO DAILY [facility] Last Admin: 01/19/18 09:14 Dose: 5 mg Clonidine HCl (Catapres) 0.1 mg PO TID [facility] Last Admin: 01/19/18 17:39 Dose: 0.1 mg Diphenhydramine HCl (Benadryl) 25 mg IVP Q8 PRN PRN Reason: Itching / Pruritus Fluticasone Propionate (Flonase) 1 spr NS DAILY [facility] Last Admin: 01/19/18 10:27 Dose: 1 spr Gabapentin (Neurontin) 600 mg PO DAILY [facility] Last Admin: 01/19/18 09:14 Dose: 600 mg Heparin Sodium (Porcine) (Heparin) 5,000 units SC Q12 [facility] Last Admin: 01/19/18 22:05 Dose: 5,000 units Home Med (Beclomethasone Dipropionate [Qvar 80 Mcg]) 0.08 mg IH DAILY [facility] Home Med (Lixisenatide [Adlyxin]) 20 mcg SQ DAILY [facility] Home Med (Chlorzoxazone [Lorzone]) 750 mg PO TID PRN PRN Reason: [facility] Home Med (Ramelteon [Rozerem]) 8 mg PO DAILY [facility] Home Med (Mometasone/Formoterol [Dulera 200 Mcg/5 Mcg Inhaler]) 1 dianna IH QID [facility] Home Med (Milnacipran Hcl [Savella]) 50 mg PO DAILY [facility] Home Med (Iron/Folate 9/Vit C/D3/B6/B12 [Nufera Tablet]) 1 each PO DAILY [facility] Piperacillin Sod/Tazobactam Sod (Zosyn 2.25 Gm Iv Premix) 2.25 gm in 50 mls @ 100 mls/hr IVPB Q6H [facility] Last Admin: 01/20/18 04:22 Dose: 100 mls/hr Insulin Aspart (Novolog) 0 unit SC ACHS [facility] PRN Reason: Protocol Last Admin: 01/19/18 17:26 Dose: Not Given Insulin Glargine (Lantus) 12 unit SC Q12H [facility] Last Admin: 01/19/18 22:05 Dose: 12 units Losartan Potassium (Cozaar) 100 mg PO DAILY [facility] Last Admin: 01/19/18 09:14 Dose: 100 mg Morphine Sulfate (Morphine) 2 mg IVP Q4 PRN PRN Reason: Pain, severe (8-10) Last Admin: 01/19/18 23:49 Dose: 2 mg Ondansetron HCl (Zofran Inj) 4 mg IVP Q4 PRN PRN Reason: Nausea/Vomiting Oxybutynin Chloride (Ditropan Xl) 5 mg PO DAILY [facility] Last Admin: 01/19/18 09:16 Dose: 5 mg Pantoprazole Sodium (Protonix Ec Tab) 40 mg PO DAILY [facility] Last Admin: 01/19/18 09:14 Dose: 40 mg Rosuvastatin Calcium (Crestor) 20 mg PO HS [facility] Last Admin: 01/19/18 22:05 Dose: 20 mg Tiotropium [place] (Spiriva) 18 mcg IH RQD [facility] - Labs Labs: 01/18/18 10:24 01/18/18 13:32 - Constitutional Appears: Non-toxic, No Acute Distress - ENT Exam ENT Exam: Mucous Membranes Moist - Respiratory Exam Respiratory Exam: absent: Accessory Muscle Use, Respiratory Distress - Cardiovascular Exam Cardiovascular Exam: absent: Tachycardia - GI/Abdominal Exam GI & Abdominal Exam: Distended, Soft, Tenderness (RUQ but improved). absent: Firm, Guarding, Rigid - Extremities Exam Extremities Exam: absent: Pedal Edema - Neurological Exam Neurological Exam: Alert, Awake, Oriented x3 Assessment and Plan - Assessment and Plan (Free Text) Assessment: 42F with RUQ pain Plan: NPO pt for HIDA today cont abx will d/w Dr Susan Yang, PGY3
[2018-01-20] MEDS: (Lantus) Insulin Glargine, Recombinant SC SCH ×2 (09:00→21:57)
[2018-01-20 09:21] LABS: HEPATITIS B SURFACE AG Negative (NEGATIVE)
[2018-01-20 09:27] LABS: HEPATITIS A IGM NEGATIVE (NEGATIVE); HEPATITIS B CORE AB NEGATIVE (NEGATIVE)
[2018-01-20 09:38] LABS: HEPATITIS C ANTIBODY NEGATIVE (NEGATIVE)
[2018-01-20] MEDS: Pantoprazole 40 mg EC Tab PO SCH (10:00)
--- NOTE | 2018-01-20 12:52 | CP.PCM.PN ---
Subjective - Date & Time of Evaluation Date of Evaluation: 01/20/18 Time of Evaluation: 07:00 - Subjective Subjective: less pain nonew cultures hida pending Objective - Vital Signs/Intake and Output Vital Signs (last 24 hours): Temp Pulse Resp BP Pulse Ox 98.1 F 98 H 18 151/90 H 97 01/20/18 07:45 01/20/18 07:45 01/20/18 07:45 01/20/18 07:45 01/20/18 07:45 Intake and Output: 01/20/18 01/20/18 06:59 18:59 Intake Total 150 Balance 150 - Medications Medications: Current Medications Amlodipine Besylate (Norvasc) 5 mg PO DAILY [facility] Last Admin: 01/20/18 10:00 Dose: Not Given Clonidine HCl (Catapres) 0.1 mg PO TID [facility] Last Admin: 01/20/18 10:00 Dose: Not Given Diphenhydramine HCl (Benadryl) 25 mg IVP Q8 PRN PRN Reason: Itching / Pruritus Fluticasone Propionate (Flonase) 1 spr NS DAILY [facility] Last Admin: 01/19/18 10:27 Dose: 1 spr Gabapentin (Neurontin) 600 mg PO DAILY [facility] Last Admin: 01/20/18 10:00 Dose: Not Given Heparin Sodium (Porcine) (Heparin) 5,000 units SC Q12 [facility] Last Admin: 01/20/18 10:00 Dose: Not Given Home Med (Beclomethasone Dipropionate [Qvar 80 Mcg]) 0.08 mg IH DAILY [facility] Home Med (Lixisenatide [Adlyxin]) 20 mcg SQ DAILY [facility] Home Med (Chlorzoxazone [Lorzone]) 750 mg PO TID PRN PRN Reason: [facility] Home Med (Ramelteon [Rozerem]) 8 mg PO DAILY [facility] Home Med (Mometasone/Formoterol [Dulera 200 Mcg/5 Mcg Inhaler]) 1 dianna IH QID [facility] Home Med (Milnacipran Hcl [Savella]) 50 mg PO DAILY [facility] Home Med (Iron/Folate 9/Vit C/D3/B6/B12 [Nufera Tablet]) 1 each PO DAILY [facility] Piperacillin Sod/Tazobactam Sod (Zosyn 2.25 Gm Iv Premix) 2.25 gm in 50 mls @ 100 mls/hr IVPB Q6H [facility] Last Admin: 01/20/18 09:00 Dose: 100 mls/hr Insulin Aspart (Novolog) 0 unit SC ACHS [facility] PRN Reason: Protocol Last Admin: 01/20/18 12:00 Dose: Not Given Insulin Glargine (Lantus) 12 unit SC Q12H [facility] Last Admin: 01/20/18 09:00 Dose: Not Given Losartan Potassium (Cozaar) 100 mg PO DAILY [facility] Last Admin: 01/20/18 10:00 Dose: Not Given Morphine Sulfate (Morphine) 2 mg IVP Q4 PRN PRN Reason: Pain, severe (8-10) Last Admin: 01/19/18 23:49 Dose: 2 mg Ondansetron HCl (Zofran Inj) 4 mg IVP Q4 PRN PRN Reason: Nausea/Vomiting Oxybutynin Chloride (Ditropan Xl) 5 mg PO DAILY [facility] Last Admin: 01/20/18 10:00 Dose: Not Given Pantoprazole Sodium (Protonix Ec Tab) 40 mg PO DAILY [facility] Last Admin: 01/20/18 10:00 Dose: Not Given Rosuvastatin Calcium (Crestor) 20 mg PO HS [facility] Last Admin: 01/19/18 22:05 Dose: 20 mg Tiotropium [place] (Spiriva) 18 mcg IH RQD [facility] - Labs Labs: 01/18/18 10:24 01/18/18 13:32 - Constitutional Appears: Non-toxic, Chronically Ill - Head Exam Head Exam: NORMOCEPHALIC - Eye Exam Eye Exam: PERRL - ENT Exam ENT Exam: Mucous Membranes Dry - Neck Exam Neck Exam: absent: Lymphadenopathy - Respiratory Exam Respiratory Exam: Decreased Breath Sounds, Clear to Ausculation Bilateral - GI/Abdominal Exam GI & Abdominal Exam: Distended, Soft. absent: Tenderness - Rectal Exam Rectal Exam: Deferred Assessment and Plan (1) Cholecystitis Status: Acute (2) Abdominal pain Status: Acute (3) Hyperglycemia Status: Acute (4) JOSE MIGUEL (acute kidney injury) Status: Acute (5) Controlled type 2 diabetes mellitus with diabetic nephropathy Status: Acute (6) Diabetes mellitus with ESRD (end-stage renal disease) Status: Acute (7) Diabetes mellitus with chronic kidney disease Status: Acute (8) Diabetic nephropathy Status: Acute (9) ESRD (end stage renal disease) on dialysis Status: Acute (10) Intractable vomiting Status: Acute
[2018-01-20] MEDS: Tiotropium 18 mcg Cap For Inhalation IH SCH (13:40)
--- NOTE | 2018-01-20 14:51 | NM ---
PROCEDURE: Nuclear Medicine Hepatobiliary Scan HISTORY: r/o cholecystitis COMPARISON: None available. TECHNIQUE: 5.7 mCi of technetium 99m Mebrofenin was administered intravenously. Planar images of the abdomen were obtained at 5 min intervals to 60 mins. Delayed images were also obtained. FINDINGS: LIVER: Timely and homogenous uptake. COMMON BILE DUCT: identified at 15 mins. GALLBLADDER: identified at 15 mins. SMALL BOWEL: Identified at 20 mins. IMPRESSION: Normal Hepatobiliary Scan. The cystic duct is patent.
[2018-01-20 15:10] LABS: ALB/GLOB RATIO 0.6 (1.0-2.1); ALBUMIN 3.5 g/dL (3.5-5.0)
--- NOTE | 2018-01-20 18:14 | CP.PCM.PN ---
Subjective - Date & Time of Evaluation Date of Evaluation: 01/20/18 Time of Evaluation: 18:14 Objective - Vital Signs/Intake and Output Vital Signs (last 24 hours): Temp Pulse Resp BP Pulse Ox 97.9 F 112 H 18 185/100 H 98 01/20/18 15:05 01/20/18 16:05 01/20/18 16:05 01/20/18 17:40 01/20/18 15:05 Intake and Output: 01/20/18 01/20/18 06:59 18:59 Intake Total 150 Balance 150 - Medications Medications: Current Medications Amlodipine Besylate (Norvasc) 5 mg PO DAILY [facility] Last Admin: 01/20/18 10:00 Dose: Not Given Clonidine HCl (Catapres) 0.1 mg PO TID [facility] Last Admin: 01/20/18 16:30 Dose: 0.1 mg Diphenhydramine HCl (Benadryl) 25 mg IVP Q8 PRN PRN Reason: Itching / Pruritus Fluticasone Propionate (Flonase) 1 spr NS DAILY [facility] Last Admin: 01/19/18 10:27 Dose: 1 spr Gabapentin (Neurontin) 600 mg PO DAILY [facility] Last Admin: 01/20/18 10:00 Dose: Not Given Heparin Sodium (Porcine) (Heparin) 5,000 units SC Q12 [facility] Last Admin: 01/20/18 10:00 Dose: Not Given Home Med (Beclomethasone Dipropionate [Qvar 80 Mcg]) 0.08 mg IH DAILY [facility] Home Med (Lixisenatide [Adlyxin]) 20 mcg SQ DAILY [facility] Home Med (Chlorzoxazone [Lorzone]) 750 mg PO TID PRN PRN Reason: [facility] Home Med (Ramelteon [Rozerem]) 8 mg PO DAILY [facility] Home Med (Mometasone/Formoterol [Dulera 200 Mcg/5 Mcg Inhaler]) 1 dianna IH QID [facility] Home Med (Milnacipran Hcl [Savella]) 50 mg PO DAILY [facility] Home Med (Iron/Folate 9/Vit C/D3/B6/B12 [Nufera Tablet]) 1 each PO DAILY [facility] Piperacillin Sod/Tazobactam Sod (Zosyn 2.25 Gm Iv Premix) 2.25 gm in 50 mls @ 100 mls/hr IVPB Q6H [facility] Last Admin: 01/20/18 09:00 Dose: 100 mls/hr Insulin Aspart (Novolog) 0 unit SC ACHS [facility]N Reason: Protocol Last Admin: 01/20/18 12:00 Dose: Not Given Insulin Glargine (Lantus) 12 unit SC Q12H [facility] Last Admin: 01/20/18 09:00 Dose: Not Given Losartan Potassium (Cozaar) 100 mg PO DAILY [facility] Last Admin: 01/20/18 18:09 Dose: 100 mg Morphine Sulfate (Morphine) 2 mg IVP Q4 PRN PRN Reason: Pain, severe (8-10) Last Admin: 01/19/18 23:49 Dose: 2 mg Ondansetron HCl (Zofran Inj) 4 mg IVP Q4 PRN PRN Reason: Nausea/Vomiting Oxybutynin Chloride (Ditropan Xl) 5 mg PO DAILY [facility] Last Admin: 01/20/18 10:00 Dose: Not Given Pantoprazole Sodium (Protonix Ec Tab) 40 mg PO DAILY [facility] Last Admin: 01/20/18 10:00 Dose: Not Given Rosuvastatin Calcium (Crestor) 20 mg PO HS [facility] Tiotropium [place] (Spiriva) 18 mcg IH RQD [facility] Last Admin: 01/20/18 13:40 Dose: 18 mcg - Labs Labs: 01/18/18 10:24 01/20/18 14:24
[2018-01-20] MEDS ORDERED: Albuterol-Ipratrop 3 mg / 0.5 (3 ml) UD INH STA (19:27)
[2018-01-21] MEDS: Piperacill/Tazo 2.25gm in Dex 2.25 GM/50 ML BAG IVPB SCH ×4 (04:53→22:52)
[2018-01-21] MEDS: Tiotropium 18 mcg Cap For Inhalation IH SCH (07:49)
[2018-01-21] MEDS: (Novolog) Insulin Aspart, Recombinant 100 u/ml 10 ml vial SC SCH ×4 (08:58→20:19)
[2018-01-21] MEDS: (Lantus) Insulin Glargine, Recombinant SC SCH ×2 (08:59→21:25)
[2018-01-21] MEDS: Pantoprazole 40 mg EC Tab PO SCH (10:25)
[2018-01-21] MEDS: Fluticasone Nasal 50 mcg/Spray NS SCH (10:26)
--- NOTE | 2018-01-21 10:37 | CP.PCM.CON ---
History of Present Illness - History of Present Illness History of Present Illness: 42 year old female, with a past medical history of HTN, diabetes, and renal disease,gastroparesis who presents to the emergency department complaining of abdominal pain. CT scan of abd showed extensive ascites and gall bladder thickening, labs w/ elevated bili and alk phos. MRCP showed cholithiasis, no CBD dilatation, HIDA neg for cholecystitis. She reports improvement in rt sided abdominal pain, eating and tolerating regular diet now. Pt received hd mwf, she was dialyzed yesterday. no fevers/chills/n/v/d/rash/dizziness c/o sob PMH: ESRD DM2 DIABETIC NEPHROPATHY HTN CHF PSH- LEFT AV FISTULA Allergies: NKDA family hx: dm in mom and paternal grandmom. Soc hx: denies any etoh/tob/drugs Review of Systems - Review of Systems All systems: reviewed and no additional remarkable complaints except - Constitutional Constitutional: As Per HPI Past Patient History - Infectious Disease Hx of Infectious Diseases: None - Past Medical History & Family History Past Medical History?: Yes - Past Social History Smoking Status: Never Smoked - CARDIAC Hx Cardiac Disorders: Yes Hx Hypercholesterolemia: Yes Hx Hypertension: Yes - PULMONARY Hx Respiratory Disorders: No Hx Asthma: Yes - NEUROLOGICAL Hx Neurological Disorder: Yes HX Cerebrovascular Accident: Yes (01/2016, left sided weakness) - HEENT Hx HEENT Problems: Yes Other/Comment: Wears Eyeglasses - RENAL Date of Last Dialysis Treatment: 01/17/18 - ENDOCRINE/METABOLIC Hx Endocrine Disorders: Yes Hx Diabetes Mellitus Type 2: Yes - HEMATOLOGICAL/ONCOLOGICAL Hx Blood Disorders: Yes Hx Anemia: Yes Hx Blood Transfusions: Yes - INTEGUMENTARY Hx Dermatological Problems: No - MUSCULOSKELETAL/RHEUMATOLOGICAL Hx Musculoskeletal Disorders: Yes Hx Back Pain: Yes Hx Falls: Yes (3 months ago) Hx Spinal Stenosis: Yes Other/Comment: uses walker at home - GASTROINTESTINAL Hx Gastrointestinal Disorders: Yes Hx Gastritis: Yes Hx Nausea: Yes Other/Comment: Hx of gastroparesis as per pt. - GENITOURINARY/GYNECOLOGICAL Hx Genitourinary Disorders: No - PSYCHIATRIC Hx Substance Use: No - SURGICAL HISTORY Hx Surgeries: Yes Hx Section: Yes Other/Comment: Insertion Of HD Cath on the R Internal Jugular; left forearm graft for dialysis. - ANESTHESIA Hx Anesthesia: Yes Hx Anesthesia Reactions: No Hx Malignant Hyperthermia: No Has any member of the family had a problem w/ anesthesia?: No Meds Allergies/Adverse Reactions: Allergies Allergy/AdvReac Type Severity Reaction Status Date / Time No Known Allergies Allergy Verified 01/18/18 08:51 - Medications Medications: Current Medications Amlodipine Besylate (Norvasc) 5 mg PO DAILY [facility] Last Admin: 01/21/18 10:25 Dose: 5 mg Clonidine HCl (Catapres) 0.1 mg PO TID [facility] Last Admin: 01/21/18 10:25 Dose: 0.1 mg Diphenhydramine HCl (Benadryl) 25 mg IVP Q8 PRN PRN Reason: Itching / Pruritus Last Admin: 01/20/18 21:56 Dose: 25 mg Fluticasone Propionate (Flonase) 1 spr NS DAILY [facility] Last Admin: 01/21/18 10:26 Dose: 1 spr Gabapentin (Neurontin) 600 mg PO DAILY [facility] Last Admin: 01/21/18 10:28 Dose: 600 mg Heparin Sodium (Porcine) (Heparin) 5,000 units SC Q12 [facility] Last Admin: 01/21/18 10:25 Dose: 5,000 units Home Med (Beclomethasone Dipropionate [Qvar 80 Mcg]) 0.08 mg IH DAILY [facility] Home Med (Lixisenatide [Adlyxin]) 20 mcg SQ DAILY [facility] Home Med (Chlorzoxazone [Lorzone]) 750 mg PO TID PRN PRN Reason: RAYSHAWN Home Med (Ramelteon [Rozerem]) 8 mg PO DAILY [facility] Home Med (Mometasone/Formoterol [Dulera 200 Mcg/5 Mcg Inhaler]) 1 dianna IH QID [facility] Home Med (Milnacipran Hcl [Savella]) 50 mg PO DAILY [facility] Home Med (Iron/Folate 9/Vit C/D3/B6/B12 [Nufera Tablet]) 1 each PO DAILY [facility] Piperacillin Sod/Tazobactam Sod (Zosyn 2.25 Gm Iv Premix) 2.25 gm in 50 mls @ 100 mls/hr IVPB Q6H [facility] Last Admin: 01/21/18 10:29 Dose: 100 mls/hr Insulin Aspart (Novolog) 0 unit SC ACHS [facility] PRN Reason: Protocol Last Admin: 01/21/18 08:58 Dose: 2 unit Insulin Glargine (Lantus) 12 unit SC Q12H [facility] Last Admin: 01/21/18 08:59 Dose: 12 units Losartan Potassium (Cozaar) 100 mg PO DAILY [facility] Last Admin: 01/21/18 10:25 Dose: 100 mg Morphine Sulfate (Morphine) 2 mg IVP Q4 PRN PRN Reason: Pain, severe (8-10) Last Admin: 01/20/18 21:57 Dose: 2 mg Ondansetron HCl (Zofran Inj) 4 mg IVP Q4 PRN PRN Reason: Nausea/Vomiting Oxybutynin Chloride (Ditropan Xl) 5 mg PO DAILY [facility] Last Admin: 01/21/18 10:26 Dose: 5 mg Pantoprazole Sodium (Protonix Ec Tab) 40 mg PO DAILY [facility] Last Admin: 01/21/18 10:25 Dose: 40 mg Rosuvastatin Calcium (Crestor) 20 mg PO HS [facility] Tiotropium [place] (Spiriva) 18 mcg IH RQD [facility] Last Admin: 01/21/18 07:49 Dose: 18 mcg Physical Exam - Constitutional Appears: Non-toxic, No Acute Distress, Chronically Ill - Head Exam Head Exam: NORMAL INSPECTION, NORMOCEPHALIC - Eye Exam Eye Exam: Normal appearance, PERRL - ENT Exam ENT Exam: Mucous Membranes Moist, Normal Exam - Neck Exam Neck exam: Positive for: Normal Inspection - Respiratory Exam Respiratory Exam: Decreased Breath Sounds (b/l bases), NORMAL BREATHING PATTERN - Cardiovascular Exam Cardiovascular Exam: REGULAR RHYTHM, RRR - GI/Abdominal Exam GI & Abdominal Exam: Diminished Bowel Sounds (rt side ttp, no rebound), Distended - Extremities Exam Extremities exam: Positive for: normal inspection (lue avf) - Neurological Exam Neurological exam: Alert, Oriented x3 - Skin Skin Exam: Dry, Warm Results - Vital Signs Recent Vital Signs: Last Vital Signs Temp 98.5 F 01/21/18 07:10 Pulse 102 H 01/21/18 07:10 Resp 20 01/21/18 07:10 BP 136/79 01/21/18 07:10 Pulse Ox 97 01/21/18 07:10 - Labs Result Diagrams: 01/18/18 10:24 01/20/18 14:24 Labs: Laboratory Results - last 24 hr 01/20/18 01/20/18 01/20/18 12:15 14:24 18:20 Sodium 139 Potassium 4.4 Chloride 94 L Carbon Dioxide 24 Anion Gap 25 H BUN 37 H Creatinine 7.2 H Est GFR ( Amer) 8 Est GFR (Non-Af Amer) 6 POC Glucose (mg/dL) 142 H 139 H Random Glucose 124 H Calcium 9.0 Total Bilirubin 2.0 H AST 41 H D ALT 20 Alkaline Phosphatase 1032 H Total Protein 9.4 H Albumin 3.5 Globulin 5.9 H Albumin/Globulin Ratio 0.6 L 01/20/18 01/21/18 21:33 06:41 Sodium Potassium Chloride Carbon Dioxide Anion Gap BUN Creatinine Est GFR ( Amer) Est GFR (Non-Af Amer) POC Glucose (mg/dL) 231 H 195 H Random Glucose Calcium Total Bilirubin AST ALT Alkaline Phosphatase Total Protein Albumin Globulin Albumin/Globulin Ratio Assessment & Plan (1) Abdominal pain Status: Acute (2) Hyperglycemia Status: Acute (3) Anemia Status: Acute (4) ESRD (end stage renal disease) on dialysis Status: Acute (5) Hypertension associated with chronic kidney disease due to type 1 diabetes mellitus Status: Acute - Assessment and Plan (Free Text) Assessment: maintain hd mwf hgb at goal pt is on high dose gabapentin, recommend lowering to 100 mg daily bp acceptable consider thoracentesis
--- NOTE | 2018-01-21 16:07 | CP.PCM.PN ---
Objective - Vital Signs/Intake and Output Vital Signs (last 24 hours): Temp Pulse Resp BP Pulse Ox 98.5 F 100 H 20 139/77 97 01/21/18 07:10 01/21/18 12:48 01/21/18 07:10 01/21/18 12:48 01/21/18 07:10 Intake and Output: 01/21/18 01/21/18 06:59 18:59 Intake Total 550 350 Balance 550 350 - Medications Medications: Current Medications Amlodipine Besylate (Norvasc) 5 mg PO DAILY [facility] Last Admin: 01/21/18 10:25 Dose: 5 mg Clonidine HCl (Catapres) 0.1 mg PO TID [facility] Last Admin: 01/21/18 13:00 Dose: 0.1 mg Diphenhydramine HCl (Benadryl) 25 mg IVP Q8 PRN PRN Reason: Itching / Pruritus Last Admin: 01/20/18 21:56 Dose: 25 mg Fluticasone Propionate (Flonase) 1 spr NS DAILY [facility] Last Admin: 01/21/18 10:26 Dose: 1 spr Gabapentin (Neurontin) 600 mg PO DAILY [facility] Last Admin: 01/21/18 10:28 Dose: 600 mg Heparin Sodium (Porcine) (Heparin) 5,000 units SC Q12 [facility] Last Admin: 01/21/18 10:25 Dose: 5,000 units Home Med (Beclomethasone Dipropionate [Qvar 80 Mcg]) 0.08 mg IH DAILY [facility] Home Med (Lixisenatide [Adlyxin]) 20 mcg SQ DAILY [facility] Home Med (Chlorzoxazone [Lorzone]) 750 mg PO TID PRN PRN Reason: RAYSHAWN Home Med (Ramelteon [Rozerem]) 8 mg PO DAILY [facility] Home Med (Mometasone/Formoterol [Dulera 200 Mcg/5 Mcg Inhaler]) 1 dianna IH QID [facility] Home Med (Milnacipran Hcl [Savella]) 50 mg PO DAILY [facility] Home Med (Iron/Folate 9/Vit C/D3/B6/B12 [Nufera Tablet]) 1 each PO DAILY [facility] Piperacillin Sod/Tazobactam Sod (Zosyn 2.25 Gm Iv Premix) 2.25 gm in 50 mls @ 100 mls/hr IVPB Q6H [facility] Last Admin: 01/21/18 15:18 Dose: 100 mls/hr Insulin Aspart (Novolog) 0 unit SC ACHS GUI PRN Reason: Protocol Last Admin: 01/21/18 12:48 Dose: 3 unit Insulin Glargine (Lantus) 12 unit SC Q12H [facility] Last Admin: 01/21/18 08:59 Dose: 12 units Losartan Potassium (Cozaar) 100 mg PO DAILY [facility] Last Admin: 01/21/18 10:25 Dose: 100 mg Morphine Sulfate (Morphine) 2 mg IVP Q4 PRN PRN Reason: Pain, severe (8-10) Last Admin: 01/21/18 12:36 Dose: 2 mg Ondansetron HCl (Zofran Inj) 4 mg IVP Q4 PRN PRN Reason: Nausea/Vomiting Oxybutynin Chloride (Ditropan Xl) 5 mg PO DAILY [facility] Last Admin: 01/21/18 10:26 Dose: 5 mg Pantoprazole Sodium (Protonix Ec Tab) 40 mg PO DAILY [facility] Last Admin: 01/21/18 10:25 Dose: 40 mg Rosuvastatin Calcium (Crestor) 20 mg PO HS [facility] Tiotropium [place] (Spiriva) 18 mcg IH RQD [facility] Last Admin: 01/21/18 07:49 Dose: 18 mcg - Labs Labs: 01/18/18 10:24 01/20/18 14:24
[2018-01-21 17:08] LABS: ABG ALLEN TEST POS; ARTERIAL BLOOD GAS HCO3 29.4 mmol/L (21-28); ARTERIAL BLOOD GAS O2 SAT 99.6 % (95-98); ARTERIAL BLOOD GAS PCO2 45 mm/Hg (35-45); ARTERIAL BLOOD GAS PH 7.44 (7.35-7.45); ARTERIAL BLOOD GAS PO2 310 mm/Hg (80-100)
--- NOTE | 2018-01-21 17:28 | CP.PCM.CON ---
<Devante Kerr - Last Filed: 01/21/18 17:33> History of Present Illness - History of Present Illness History of Present Illness: CCU Consult Note HPI: Patient is 42F with a history of COPD, ESRD on HD last HD was yesterday. Patient admitited with complaints of abdominal pain. Found to have acute graciela, later HIDA showed visualization of GB so surgery did not plan to intervene. Treated with abx. Today PROGRAM MANAGEMENT SPECIALIST was called because patient was in respiratory distress. ICU consult was called. When we arrived we reviewed the chart and patient had a CT scan showed a large R. pleural effusion on CT scan done 3 days ago. Decision was made to intubate the patient. Plan for thoracentesis. PMH: COPD, ESRD on HD Review of Systems - Review of Systems Review of Systems: per HPI Past Patient History - Infectious Disease Hx of Infectious Diseases: None - Past Medical History & Family History Past Medical History?: Yes - Past Social History Smoking Status: Never Smoked - CARDIAC Hx Cardiac Disorders: Yes Hx Hypercholesterolemia: Yes Hx Hypertension: Yes - PULMONARY Hx Respiratory Disorders: No Hx Asthma: Yes - NEUROLOGICAL Hx Neurological Disorder: Yes HX Cerebrovascular Accident: Yes (01/2016, left sided weakness) - HEENT Hx HEENT Problems: Yes Other/Comment: Wears Eyeglasses - RENAL Date of Last Dialysis Treatment: 01/17/18 - ENDOCRINE/METABOLIC Hx Endocrine Disorders: Yes Hx Diabetes Mellitus Type 2: Yes - HEMATOLOGICAL/ONCOLOGICAL Hx Blood Disorders: Yes Hx Anemia: Yes Hx Blood Transfusions: Yes - INTEGUMENTARY Hx Dermatological Problems: No - MUSCULOSKELETAL/RHEUMATOLOGICAL Hx Musculoskeletal Disorders: Yes Hx Back Pain: Yes Hx Falls: Yes (3 months ago) Hx Spinal Stenosis: Yes Other/Comment: uses walker at home - GASTROINTESTINAL Hx Gastrointestinal Disorders: Yes Hx Gastritis: Yes Hx Nausea: Yes Other/Comment: Hx of gastroparesis as per pt. - GENITOURINARY/GYNECOLOGICAL Hx Genitourinary Disorders: No - PSYCHIATRIC Hx Substance Use: No - SURGICAL HISTORY Hx Surgeries: Yes Hx Section: Yes Other/Comment: Insertion Of HD Cath on the R Internal Jugular; left forearm graft for dialysis. - ANESTHESIA Hx Anesthesia: Yes Hx Anesthesia Reactions: No Hx Malignant Hyperthermia: No Has any member of the family had a problem w/ anesthesia?: No Meds Allergies/Adverse Reactions: Allergies Allergy/AdvReac Type Severity Reaction Status Date / Time No Known Allergies Allergy Verified 01/18/18 08:51 - Medications Medications: Current Medications Amlodipine Besylate (Norvasc) 5 mg PO DAILY [facility] Last Admin: 01/21/18 10:25 Dose: 5 mg Clonidine HCl (Catapres) 0.1 mg PO TID [facility] Last Admin: 01/21/18 13:00 Dose: 0.1 mg Diphenhydramine HCl (Benadryl) 25 mg IVP Q8 PRN PRN Reason: Itching / Pruritus Last Admin: 01/20/18 21:56 Dose: 25 mg Fluticasone Propionate (Flonase) 1 spr NS DAILY [facility] Last Admin: 01/21/18 10:26 Dose: 1 spr Gabapentin (Neurontin) 600 mg PO DAILY [facility] Last Admin: 01/21/18 10:28 Dose: 600 mg Heparin Sodium (Porcine) (Heparin) 5,000 units SC Q12 [facility] Last Admin: 01/21/18 10:25 Dose: 5,000 units Home Med (Beclomethasone Dipropionate [Qvar 80 Mcg]) 0.08 mg IH DAILY [facility] Home Med (Lixisenatide [Adlyxin]) 20 mcg SQ DAILY [facility] Home Med (Chlorzoxazone [Lorzone]) 750 mg PO TID PRN PRN Reason: RAYSHAWN Home Med (Ramelteon [Rozerem]) 8 mg PO DAILY [facility] Home Med (Mometasone/Formoterol [Dulera 200 Mcg/5 Mcg Inhaler]) 1 dianna IH QID [facility] Home Med (Milnacipran Hcl [Savella]) 50 mg PO DAILY [facility] Home Med (Iron/Folate 9/Vit C/D3/B6/B12 [Nufera Tablet]) 1 each PO DAILY [facility] Piperacillin Sod/Tazobactam Sod (Zosyn 2.25 Gm Iv Premix) 2.25 gm in 50 mls @ 100 mls/hr IVPB Q6H [facility] Last Admin: 01/21/18 15:18 Dose: 100 mls/hr Insulin Aspart (Novolog) 0 unit SC ACHS GUI PRN Reason: Protocol Last Admin: 01/21/18 16:30 Dose: Not Given Insulin Glargine (Lantus) 12 unit SC Q12H [facility] Last Admin: 01/21/18 08:59 Dose: 12 units Losartan Potassium (Cozaar) 100 mg PO DAILY [facility] Last Admin: 01/21/18 10:25 Dose: 100 mg Metoclopramide HCl (Reglan) 10 mg IVP Q8 [facility] Last Admin: 01/21/18 16:46 Dose: 10 mg Morphine Sulfate (Morphine) 2 mg IVP Q4 PRN PRN Reason: Pain, severe (8-10) Last Admin: 01/21/18 12:36 Dose: 2 mg Ondansetron HCl (Zofran Inj) 4 mg IVP Q4 PRN PRN Reason: Nausea/Vomiting Last Admin: 01/21/18 16:15 Dose: 4 mg Oxybutynin Chloride (Ditropan Xl) 5 mg PO DAILY [facility] Last Admin: 01/21/18 10:26 Dose: 5 mg Pantoprazole Sodium (Protonix Ec Tab) 40 mg PO DAILY [facility] Last Admin: 01/21/18 10:25 Dose: 40 mg Rosuvastatin Calcium (Crestor) 5 mg PO [facility] Tiotropium [place] (Spiriva) 18 mcg IH RQD [facility] Last Admin: 01/21/18 07:49 Dose: 18 mcg Physical Exam - Constitutional Additional comments: intubated - Eye Exam Eye Exam: Normal appearance - ENT Exam ENT Exam: Mucous Membranes Moist - Respiratory Exam Respiratory Exam: Clear to Auscultation Bilateral, NORMAL BREATHING PATTERN - Cardiovascular Exam Cardiovascular Exam: REGULAR RHYTHM - GI/Abdominal Exam GI & Abdominal Exam: Normal Bowel Sounds, Soft. absent: Distended, Tenderness - Extremities Exam Extremities exam: Negative for: joint swelling, tenderness Results - Vital Signs Recent Vital Signs: Last Vital Signs Temp 98.5 F 01/21/18 07:10 Pulse 100 H 01/21/18 12:48 Resp 20 01/21/18 07:10 BP 139/77 01/21/18 12:48 Pulse Ox 97 01/21/18 07:10 - Labs Result Diagrams: 01/18/18 10:24 01/20/18 14:24 Labs: Laboratory Results - last 24 hr 01/20/18 01/20/18 01/21/18 18:20 21:33 06:41 Puncture Site pCO2 pO2 HCO3 ABG pH ABG Total CO2 ABG O2 Saturation ABG Base Excess Bishop Test ABG Potassium A-a O2 Difference Respiratory Index Sodium Chloride Glucose Lactate FiO2 POC Glucose (mg/dL) 139 H 231 H 195 H Arterial Blood Potassium 01/21/18 01/21/18 01/21/18 11:03 16:19 17:05 Puncture Site Rra pCO2 45 pO2 310 H HCO3 29.4 H ABG pH 7.44 ABG Total CO2 32.0 H ABG O2 Saturation 99.6 H ABG Base Excess 5.6 H Bishop Test Pos ABG Potassium 3.9 A-a O2 Difference 347.0 Respiratory Index 1.1 Sodium 139.0 Chloride 104.0 Glucose 151 H Lactate 1.2 FiO2 100.0 POC Glucose (mg/dL) 235 H 148 H Arterial Blood Potassium 3.9 Assessment & Plan - Assessment and Plan (Free Text) Assessment: 42F Intubated, Large R. Pleural Effusion Plan: Neuro: AMS, propofol for sedation Cardio: Hypertension, continue home medication Pulm: Intubated, large R. pleural effusion, Plan for thoracentesis. COPD Continue home meds GI: NPO, HIDA negative for cholecystits Renal: ESRD on HD PPX: Heparin, Pepcid <Neelima Lay M - Last Filed: 01/23/18 17:26> Meds - Medications Medications: Current Medications Albuterol/Ipratropium (Duoneb 3 Mg/0.5 Mg (3 Ml) Ud) 3 ml INH RQ4 [facility] Last Admin: 01/23/18 16:15 Dose: 3 ml Amlodipine Besylate (Norvasc) 5 mg PO DAILY [facility] Last Admin: 01/23/18 09:54 Dose: 5 mg Clonidine HCl (Catapres) 0.1 mg PO TID [facility] Last Admin: 01/23/18 14:00 Dose: Not Given Heparin Sodium (Porcine) (Heparin) 5,000 units SC Q12 [facility] Last Admin: 01/23/18 09:55 Dose: 5,000 units Insulin Aspart (Novolog) 0 unit SC Q6H [facility] PRN Reason: Protocol Last Admin: 01/23/18 12:00 Dose: Not Given Insulin Glargine (Lantus) 12 unit SC Q12H [facility] Last Admin: 01/23/18 09:55 Dose: 12 units Losartan Potassium (Cozaar) 100 mg PO DAILY [facility] Last Admin: 01/23/18 09:54 Dose: 100 mg Metoclopramide HCl (Reglan) 10 mg IVP Q6 PRN PRN Reason: Nausea/Vomiting Metoprolol Tartrate (Lopressor) 50 mg PO BID [facility] Last Admin: 01/23/18 09:54 Dose: 50 mg Pantoprazole Sodium (Protonix Inj) 40 mg IVP DAILY [facility] Last Admin: 01/23/18 09:54 Dose: 40 mg Rosuvastatin Calcium (Crestor) 5 mg PO HS [facility] Last Admin: 01/22/18 21:26 Dose: 5 mg Spironolactone (Aldactone) 50 mg PO DAILY [facility] Last Admin: 01/23/18 09:54 Dose: 50 mg Results - Vital Signs Recent Vital Signs: Last Vital Signs Temp 98.8 F 01/23/18 16:00 Pulse 91 H 01/23/18 16:04 Resp 15 01/23/18 16:04 BP 121/72 01/23/18 16:04 Pulse Ox 94 L 01/23/18 16:04 - Labs Result Diagrams: 01/23/18 06:42 01/23/18 06:42 Labs: Laboratory Results - last 24 hr 01/22/18 01/22/18 01/22/18 16:53 17:35 23:55 WBC RBC Hgb Hct MCV MCH MCHC RDW Plt Count MPV Neut % (Auto) Lymph % (Auto) Hawkins % (Auto) Eos % (Auto) Baso % (Auto) Neut # (Auto) Lymph # (Auto) Hawkins # (Auto) Eos # (Auto) Baso # (Auto) Puncture Site pCO2 pO2 HCO3 ABG pH ABG Total CO2 ABG O2 Saturation ABG Base Excess Bishop Test ABG Potassium A-a O2 Difference Respiratory Index Sodium Chloride Glucose Lactate Vent Mode FiO2 Pressure Support CPAP Crit Value Called To Crit Value Called By Crit Value Read Back Blood Gas Notified Time Potassium Carbon Dioxide Anion Gap BUN Creatinine Est GFR ( Amer) Est GFR (Non-Af Amer) POC Glucose (mg/dL) 72 89 Random Glucose Calcium Phosphorus Magnesium Total Bilirubin AST ALT Alkaline Phosphatase Total Protein Albumin Globulin Albumin/Globulin Ratio Arterial Blood Potassium Fluid Appearance Sl cloudy Fluid WBC 207.0 Fluid RBC 2751.0 H Fluid Tot Cell Count TEST NOT PERFORMED Fluid Neutrophils 3.0 H Fluid Lymphocytes 90.0 H Fld Monocyte/Macrophag 7 H Fluid Comment 01/23/18 01/23/18 01/23/18 04:35 06:13 06:42 WBC 9.7 RBC 3.73 L Hgb 10.6 L Hct 32.4 L MCV 86.8 MCH 28.5 MCHC 32.8 L RDW 16.9 H Plt Count 188 MPV 10.9 Neut % (Auto) 67.4 Lymph % (Auto) 12.1 L Hawkins % (Auto) 15.3 H Eos % (Auto) 4.6 H Baso % (Auto) 0.6 Neut # (Auto) 6.5 Lymph # (Auto) 1.2 Hawkins # (Auto) 1.5 H Eos # (Auto) 0.4 Baso # (Auto) 0.1 Puncture Site Rr pCO2 27 L pO2 197 H HCO3 31.2 H ABG pH 7.63 H* ABG Total CO2 29.2 H ABG O2 Saturation 98.8 H ABG Base Excess 8.0 H Bishop Test Pos ABG Potassium 3.6 A-a O2 Difference 126.0 Respiratory Index 0.6 Sodium 142.0 Chloride 108.0 H Glucose 121 H Lactate 0.9 Vent Mode Cpap FiO2 50.0 Pressure Support 10 CPAP 5 Crit Value Called To Rosita díaz/rn Crit Value Called By Dejan stephen/rt Crit Value Read Back Y Blood Gas Notified Time 445 Potassium Carbon Dioxide Anion Gap BUN Creatinine Est GFR ( Amer) Est GFR (Non-Af Amer) POC Glucose (mg/dL) 166 H Random Glucose Calcium Phosphorus Magnesium Total Bilirubin AST ALT Alkaline Phosphatase Total Protein Albumin Globulin Albumin/Globulin Ratio Arterial Blood Potassium 3.6 Fluid Appearance Fluid WBC Fluid RBC Fluid Tot Cell Count Fluid Neutrophils Fluid Lymphocytes Fld Monocyte/Macrophag Fluid Comment 01/23/18 01/23/18 01/23/18 06:42 11:34 14:15 WBC RBC Hgb Hct MCV MCH MCHC RDW Plt Count MPV Neut % (Auto) Lymph % (Auto) Hawkins % (Auto) Eos % (Auto) Baso % (Auto) Neut # (Auto) Lymph # (Auto) Hawkins # (Auto) Eos # (Auto) Baso # (Auto) Puncture Site Rb pCO2 39 pO2 67 L HCO3 30.1 H ABG pH 7.50 H ABG Total CO2 31.6 H ABG O2 Saturation 95.2 ABG Base Excess 6.7 H Bishop Test Na ABG Potassium 4.1 A-a O2 Difference 84.0 Respiratory Index 1.3 Sodium 140 141.0 Chloride 96 L 102.0 Glucose 133 H Lactate 0.7 Vent Mode FiO2 28.0 Pressure Support CPAP Crit Value Called To Dr donya lay Crit Value Called By Kingsley rincon [facility] Crit Value Read Back Y Blood Gas Notified Time 1430 Potassium 4.3 Carbon Dioxide 28 Anion Gap 21 H BUN 18 H Creatinine 4.1 H Est GFR ( Amer) 14 Est GFR (Non-Af Amer) 12 POC Glucose (mg/dL) 120 H Random Glucose 132 H Calcium 8.0 L Phosphorus 4.2 Magnesium 1.9 Total Bilirubin 1.3 AST 30 ALT 24 Alkaline Phosphatase 932 H D Total Protein 7.7 Albumin 3.1 L Globulin 4.6 H Albumin/Globulin Ratio 0.7 L Arterial Blood Potassium 4.1 Fluid Appearance Fluid WBC Fluid RBC Fluid Tot Cell Count Fluid Neutrophils Fluid Lymphocytes Fld Monocyte/Macrophag Fluid Comment Assessment & Plan - Assessment and Plan (Free Text) Plan: Patient has AMS and was intubated for ariway protection. COntinueventilation to keep s2op >92 and pH b/w 7.35-7.45 empriical amabx -planned right sided thoracentesis and central line placement cc time 40 minutes - Date & Time Date: 01/21/18 Time: 19:00
--- NOTE | 2018-01-21 17:35 | PCM.RRT ---
[facility] Nurses Assessment - Situation Date: 01/21/18 Time DOPE HE[facility] was called: 16:51 [facility] Responder Arrival Time:: 16:51 DOPE [facility] Location:: Med/Surg Room Number: 657A [facility] Reason for Call: Not Responding to Urgent Treatment [facility] Called By: RN - IV IV Inserted during DOPE HEATER?: No - Respiratory [facility]OPE [facility] Delivery Method: Venturi Mask @% Received Nebulizer Treatments: No Was the Patient Ventilated with Bag/Mask 100% O2?: Yes Secretions Suctioned?: No Was the Patient Intubated?: Yes Was the Patient Placed on a Ventilator?: No CPR started during DOPE HEATER?: No - Vital Signs Vital Signs: Rapid Response Vital Sign Blood Pressure 116/65 Pulse Rate 101 Respiratory Rate 22 Oxygen Saturation 100 - Time DOPE HEATER Ended Time DOPE HEATER Ended: 17:51 - Recommendations Notifications: Attending Physician, Consultations I.Reason for DOPE HEATER - A) Acute Change in Patient: (Select all that apply): Acute change in mental status Subjective: Patient is 42 year old female with past medical history of Diabetes (IDDM), Gastritis, HTN, Hypercholesterolemia, End Stage Renal Disease, Chronic Kidney Disease, who was admitted for abdominal pain. DOPE HEATER was called for altered mental status change and non-responsive. Patient was noted to be in respiratory distress and decision was made to intubate the patient. In addition, a massive right pleural effusion was noted on Chest CT. Decision was made to intubate in anticipation that patient will decompensate with such a huge pleural effusion and transferred to the ICU for thoracentesis. - Respiratory Oxygen Delivery Method: Venturi Mask @% - Constitutional Appears: In Acute Distress - Head Head Exam: ATRAUMATIC - Eyes Eye Exam: EOMI - Respiratory Exam Respiratory Exam: Rales. absent: Decreased Breath Sounds, Clear to Ausculation Bilateral, NORMAL BREATHING PATTERN - Cardiovascular Exam Cardiovascular Exam: Tachycardia, REGULAR RHYTHM, +S1, +S2. absent: Murmur - GI/Abdominal Exam GI & Abdominal Exam: Distended, Soft, Normal Bowel Sounds. absent: Firm, Guarding, Rigid, Tenderness - Neurological Exam Neurological Exam: Alert. absent: Oriented x3 - Extremities Exam Extremities Exam: Normal Inspection Plan - Assessment of Findings&Treatment Plan Patient is 42 year old female with past medical history of Diabetes (IDDM), Gastritis, HTN, Hypercholesterolemia, End Stage Renal Disease, Chronic Kidney Disease, who was admitted for abdominal pain. D[facility] HE[facility] was called for altered mental status change and non-responsive. Patient was intubated due to respiratory distress and noted right pleural effusion on Chest CT: 1. Intubation 2. Transferred to ICU 3. Possible thoracentesis 4. ABG 5. Chest X-ray 6. Coags and labs Patient's mother, Tarsha galvan, was notified as well as the PMD
--- NOTE | 2018-01-21 18:26 | PCM.PROC ---
Procedures Attestation:: I certify that I have explained the specified Operation(s) or Procedure(s), risks, benefits and reasonable alternatives to the Patient and/or other person responsible. The opportunity was given to ask questions and all questions answered - Central Line Placement Right Internal Jugular Triple Lumen Catheter Aseptic technique was employed throughout the procedure: Hand Hygiene done prior to procedure, Full sterile barriers (mask, hair cover, sterile gown, sterile gloves), Full body sterile drape, Chloraprep Antiseptic: 30 second prep for IJ or SC sites CVP Time Out Performed: Yes Pt. Placed on Pulse Ox Monitor: Yes Central Line Prep: Povidone-Iodine 1% Local Anesthesia Used: Lidocaine 1% Ultrasound Used for Placement: Yes Central Line Lumen Inserted: triple Central Line Length: 20 cm Post Procedure: Sutured in Place Secured by: Suture Post procedure dressing: Gauze Post Procedure X-Ray: Yes Patient Tolerated Procedure: Well Immediate Complications: None
[2018-01-21 18:55] LABS: BASO # 0.1 K/uL (0.0-0.2); BASO % 0.6 % (0.0-2.0); EOS # 0.3 K/uL (0.0-0.7); EOS % 3.2 % (0.0-4.0); HEMOGLOBIN 9.7 g/dL (11.0-16.0); LYMPH # 0.8 K/uL (1.0-4.3); MEAN CORPUSCULAR HGB CONC 32.2 g/dL (33.0-37.0); MEAN PLATELET VOLUME 10.4 fL (7.2-11.7); MONO # 1.5 K/uL (0.0-0.8); NEUT # 7.2 K/uL (1.8-7.0); NEUT % 73.2 % (50.0-75.0); PLATELET COUNT 169 K/uL (130-400); RBC 3.47 Mil/uL (3.80-5.20); RED CELL DISTRIBUTION WIDTH 16.9 % (11.5-14.5); WHITE BLOOD COUNT 9.8 K/uL (4.8-10.8)
[2018-01-21] MEDS: Propofol 10 mg/ml 1,000 MG/100 ML VIAL IV PRN (19:00)
[2018-01-21 19:03] LABS: INR 1.3; PROTHROMBIN TIME 15.1 SECONDS (9.7-12.2)
[2018-01-21 19:07] LABS: ALB/GLOB RATIO 0.6 (1.0-2.1); ALBUMIN 3.4 g/dL (3.5-5.0); CALCIUM 8.6 mg/dl (8.6-10.4)
[2018-01-21] MEDS: Albuterol-Ipratrop 3 mg / 0.5 (3 ml) UD INH SCH (19:40)
[2018-01-21 21:02] LABS: EOSINOPHIL 2 % (0-4); LYMPHOCYTE 10 % (20-40); MONOCYTE 10 % (0-10); NEUTROPHIL 78 % (50-75); PLATELET ESTIMATE NORMAL (NORMAL); TOTAL CELLS COUNTED 100
[2018-01-21 21:03] LABS: ANISOCYTOSIS SLIGHT; OVALOCYTES SLIGHT; POIKILOCYTOSIS SLIGHT
--- NOTE | 2018-01-21 22:22 | CT ---
EXAM: CT Head Without Intravenous Contrast EXAM DATE/TIME: 01/21/2018 5:34 PM CLINICAL HISTORY: 42 years old, female; Signs and symptoms; Altered mental status/memory loss; Confusion or disorientation; Additional info: AMS; intubated patient TECHNIQUE: Axial computed tomography images of the head/brain without intravenous contrast. All CT scans at this facility use one or more dose reduction techniques, viz.: automated exposure control; ma/kV adjustment per patient size (including targeted exams where dose is matched to indication; i.e. head); or iterative reconstruction technique. Coronal and sagittal reformatted images were created and reviewed. COMPARISON: CT - HEAD W/O CONTRAST 2016-03-14 11:19 FINDINGS: Brain: Ventricles are unchanged in size and configuration. There is no midline shift. There are no intra-axial or extra-axial mass lesions or areas of hemorrhage. There are no abnormal fluid collections. Jones-white differentiation is maintained. Ventricles: See above. Bones: Cranial vault is intact. Soft tissues: unremarkable Sinuses: There is no acute sinusitis. Ears and mastoids: Middle ears and mastoids are unremarkable Orbits: Orbital contents are unremarkable. IMPRESSION: No acute intracranial abnormality
[2018-01-21] MEDS ORDERED: Dextrose 50% SYRINGE Inj (50 ml) IV STA (23:38)
[2018-01-21] MEDS ORDERED: Dextrose 50% SYRINGE Inj (50 ml) ONE (23:39)
[2018-01-22] MEDS ORDERED: Dextrose 5%/0.45% NS 1,000 ML IV SCH (01:00)
[2018-01-22] MEDS: Propofol 10 mg/ml 1,000 MG/100 ML VIAL IV PRN ×2 (01:05→16:51)
[2018-01-22] MEDS: Albuterol-Ipratrop 3 mg / 0.5 (3 ml) UD INH SCH ×3 (01:11→13:20)
[2018-01-22] MEDS: Piperacill/Tazo 2.25gm in Dex 2.25 GM/50 ML BAG IVPB SCH ×2 (03:55→10:09)
[2018-01-22 04:36] LABS: ABG ALLEN TEST POS; ARTERIAL BLOOD GAS HCO3 32.3 mmol/L (21-28); ARTERIAL BLOOD GAS O2 SAT 97.5 % (95-98); ARTERIAL BLOOD GAS PCO2 36 mm/Hg (35-45); ARTERIAL BLOOD GAS PH 7.56 (7.35-7.45); ARTERIAL BLOOD GAS PO2 79 mm/Hg (80-100); ARTERIAL BLOOD GAS TCO2 33.3 mmol/L (22-28)
[2018-01-22] MEDS: (Novolog) Insulin Aspart, Recombinant 100 u/ml 10 ml vial SC SCH ×3 (06:00→12:30)
[2018-01-22 06:16] LABS: BASO # 0.1 K/uL (0.0-0.2); BASO % 0.7 % (0.0-2.0); EOS # 0.4 K/uL (0.0-0.7); HEMOGLOBIN 9.2 g/dL (11.0-16.0); LYMPH # 1.8 K/uL (1.0-4.3); LYMPH % 23.9 % (20.0-40.0); MEAN CELL VOLUME 86.9 fL (81.0-99.0); MEAN CORPUSCULAR HEMOGLOBIN 28.5 pg (27.0-31.0); MEAN CORPUSCULAR HGB CONC 32.8 g/dL (33.0-37.0); MONO # 1.2 K/uL (0.0-0.8); MONO % 16.6 % (0.0-10.0); NEUT % 53.8 % (50.0-75.0); NRBC % 0.1 % (0.0-2.0); RBC 3.22 Mil/uL (3.80-5.20); WHITE BLOOD COUNT 7.4 K/uL (4.8-10.8)
[2018-01-22 06:37] LABS: ALB/GLOB RATIO 0.7 (1.0-2.1); CALCIUM 8.2 mg/dl (8.6-10.4)
[2018-01-22] MEDS ORDERED: Sodium Chloride 0.45% 1,000 ML IV SCH (07:00)
--- NOTE | 2018-01-22 08:21 | RAD ---
HISTORY: central line COMPARISON: Chest radiograph performed approximately 1 hour prior. FINDINGS: LUNGS: Pulmonary vascular congestion/edema PLEURA: Large right pleural effusion. No pneumothorax apparent. CARDIOVASCULAR: Cardiomediastinal silhouette unchanged. OSSEOUS STRUCTURES: Unchanged. VISUALIZED UPPER ABDOMEN: Normal. OTHER FINDINGS: New right internal jugular access central venous catheter with catheter tip at the cavoatrial junction. Endotracheal and enteric tubes, unchanged. IMPRESSION: New right internal jugular access central venous catheter in satisfactory position. No appreciable pneumothorax. No other significant interval change.
--- NOTE | 2018-01-22 08:23 | RAD ---
HISTORY: RIGHT PLEURAL EFFUSION s/p INTUBATION COMPARISON: Chest x-ray performed 01/02/18 TECHNIQUE: Chest, one view. FINDINGS: Endotracheal tube terminates at the level the purnima and should be withdrawn approximately 3 cm. Nasogastric tube extends beyond the hemidiaphragm towards the expected location of the stomach. 2 external defibrillator leads as well as numerous external wires and leads obscure evaluation of the underlying parenchyma. LUNGS: Hazy opacifications throughout the right sho thorax compatible with layering pleural effusion and consolidation. Left lower lobe consolidation. Please note that chest x-ray has limited sensitivity for the detection of pulmonary masses. CARDIOVASCULAR: Partially obscured. OSSEOUS STRUCTURES: No acute osseous abnormality identified. VISUALIZED UPPER ABDOMEN: Elevation of the right hemidiaphragm. OTHER FINDINGS: None. IMPRESSION: Support lines and tubes as above. Hazy opacification throughout the right sho thorax consistent with layering pleural effusion and associated consolidation. Left lower lobe consolidation. Findings discussed with the patient's RN Rita on 01/22/18 at 8:17 a.m.. Endotracheal tube had already been repositioned in the interval.
--- NOTE | 2018-01-22 08:33 | RAD ---
HISTORY: Intubated, F/U pleural effusion COMPARISON: Chest x-ray performed 01/21/18 TECHNIQUE: Chest, one view. FINDINGS: Endotracheal tube terminates approximately 3.5 cm above the level the purnima. Right IJ approach central venous catheter extends to the cavoatrial junction. Nasogastric tube extends beyond the hemidiaphragm towards expected location of the stomach. Several external wires and leads. LUNGS: Mild pulmonary venous congestion. Layering right pleural effusion and associated consolidation. Left lower lobe consolidation. No definite pneumothorax. CARDIOVASCULAR: Partially obscured. OSSEOUS STRUCTURES: No acute osseous abnormality identified. VISUALIZED UPPER ABDOMEN: Unremarkable. OTHER FINDINGS: None. IMPRESSION: Support lines and tubes as above. Mild pulmonary venous congestion. No significant interval change in layering right pleural effusion and associated consolidation. Left lower lobe consolidation.
[2018-01-22] MEDS: (Lantus) Insulin Glargine, Recombinant SC SCH ×2 (09:17→20:59)
--- NOTE | 2018-01-22 09:34 | CP.PCM.PN ---
Subjective - Date & Time of Evaluation Date of Evaluation: 01/22/18 Time of Evaluation: 09:34 Objective - Vital Signs/Intake and Output Vital Signs (last 24 hours): Temp Pulse Resp BP Pulse Ox 98 F 85 16 113/73 100 01/22/18 04:00 01/22/18 07:30 01/22/18 07:30 01/22/18 06:46 01/22/18 07:30 Intake and Output: 01/22/18 01/22/18 06:59 18:59 Intake Total 950.0 262.5 Output Total 400 0 Balance 550.0 262.5 - Medications Medications: Current Medications Albuterol/Ipratropium (Duoneb 3 Mg/0.5 Mg (3 Ml) Ud) 3 ml INH RQ6 [facility] Last Admin: 01/22/18 08:10 Dose: 3 ml Amlodipine Besylate (Norvasc) 5 mg PO DAILY [facility] Last Admin: 01/21/18 10:25 Dose: 5 mg Clonidine HCl (Catapres) 0.1 mg PO TID [facility] Last Admin: 01/21/18 18:00 Dose: Not Given Heparin Sodium (Porcine) (Heparin) 5,000 units SC Q12 [facility] Last Admin: 01/21/18 21:19 Dose: 5,000 units Piperacillin Sod/Tazobactam Sod (Zosyn 2.25 Gm Iv Premix) 2.25 gm in 50 mls @ 100 mls/hr IVPB Q6H [facility] Last Admin: 01/22/18 03:55 Dose: 100 mls/hr Propofol (Diprivan) 1,000 mg in 100 mls @ 2.1 mls/hr IV .Q24H PRN; Protocol; 5 MCG/KG/MIN PRN Reason: TITRATE PER MD ORDER Last Titration: 01/22/18 09:11 Dose: Infused Potassium Chloride 20 meq/ (Sodium Chloride) 110 mls @ 55 mls/hr IV Q2H [facility] Stop: 01/22/18 13:59 Last Admin: 01/22/18 08:30 Dose: 55 mls/hr Insulin Aspart (Novolog) 0 unit SC Q6H GUI PRN Reason: Protocol Last Admin: 01/22/18 06:00 Dose: Not Given Insulin Glargine (Lantus) 12 unit SC Q12H [facility] Last Admin: 01/22/18 09:17 Dose: Not Given Losartan Potassium (Cozaar) 100 mg PO DAILY [facility] Last Admin: 01/21/18 10:25 Dose: 100 mg Pantoprazole Sodium (Protonix Inj) 40 mg IVP DAILY [facility] Rosuvastatin Calcium (Crestor) 5 mg PO HS [facility] Last Admin: 01/21/18 21:24 Dose: 5 mg Spironolactone (Aldactone) 50 mg PO DAILY [facility] - Labs Labs: 01/22/18 06:13 01/22/18 06:13 PT 15.1 SECONDS (9.7-12.2) H 01/21/18 18:48 INR 1.3 01/21/18 18:48 APTT 33 SECONDS (21-34) 01/21/18 18:48
--- NOTE | 2018-01-22 10:05 | CP.CCUPN ---
<Devante Kerr - Last Filed: 01/22/18 14:45> CCU Subjective - Physician Review Subjective (Free Text): 01/22/18 10:05 Patient seen and examined at bedside intubated, sedated Plan for thoracentesis today started tube feeding today CCU Objective - Vital Signs / Intake & Output Vital Signs (Last 4 hours): Vital Signs Pulse Resp BP Pulse Ox 01/22/18 07:30 85 16 100 01/22/18 07:20 83 16 99 01/22/18 07:10 81 16 99 01/22/18 07:00 81 16 99 01/22/18 06:50 81 16 99 01/22/18 06:46 82 16 113/73 99 01/22/18 06:40 82 16 99 01/22/18 06:30 80 16 96 01/22/18 06:20 83 17 99 01/22/18 06:10 82 16 99 Intake and Output (Last 8hrs): Intake & Output 01/21/18 01/22/18 01/22/18 22:59 06:59 14:59 Intake Total 62.5 900.0 262.5 Output Total 0 400 0 Balance 62.5 500.0 262.5 Weight 144 lb 14.4 oz Intake: IV 100 100 Intake, IV Amount 62.5 800.0 162.5 Right Internal Jugular 62.5 100.0 12.5 right medial port 700 100 rt medial port y 50 Oral 0 0 Output: Gastric Amount 400 Stomach 400 Urine 0 0 0 Urine, Voided 0 0 0 Stool 0 Emesis 0 - Physical Exam Physical Exam Limitations: Positive for: Other (intubated sedated) Pupils: Positive for: PERRL Extroacular Muscles: Positive for: EOMI Conjunctiva: Positive for: Normal Mouth: Positive for: Moist Mucous Membranes Respiratory/Chest: Positive for: Clear to Auscultation Cardiovascular: Positive for: Regular Rate and Rhythm Abdomen: Positive for: Normal Bowel Sounds. Negative for: Tenderness, Distention, Peritoneal Signs Skin: Positive for: Warm, Dry Psychiatric: Positive for: Alert, Oriented x 3 - Medications Active Medications: Active Medications Generic Name Dose Route Start Last Admin Trade Name Freq PRN Reason Stop Dose Admin Albuterol/Ipratropium 3 ml 01/21/18 20:00 01/22/18 08:10 Duoneb 3 Mg/0.5 Mg (3 Ml) Ud INH 3 ml RQ6 GUI Administration Amlodipine Besylate 5 mg 01/18/18 15:45 01/21/18 10:25 Norvasc PO 5 mg DAILY GUI Administration Clonidine HCl 0.1 mg 01/18/18 18:00 01/21/18 18:00 Catapres PO Not Given TID GUI Heparin Sodium (Porcine) 5,000 units 01/18/18 22:00 01/21/18 21:19 Heparin SC 5,000 units Q12 GUI Administration Piperacillin Sod/Tazobactam Sod 2.25 gm in 50 mls @ 100 mls/hr 01/18/18 22:00 01/22/18 03:55 Zosyn 2.25 Gm Iv Premix IVPB 100 mls/hr Q6H GUI Administration Propofol 1,000 mg in 100 mls @ 2.1 mls/hr 01/21/18 17:27 01/22/18 09:11 Diprivan IV Infused .Q24H PRN Titration TITRATE PER MD ORDER Protocol 5 MCG/KG/MIN Potassium Chloride 20 meq/ 110 mls @ 55 mls/hr 01/22/18 10:00 Sodium Chloride IV 01/22/18 11:59 ONCE ONE Insulin Aspart 0 unit 01/21/18 18:30 01/22/18 06:00 Novolog SC Not Given Q6H [facility] Protocol Insulin Glargine 12 unit 01/19/18 21:00 01/22/18 09:17 Lantus SC Not Given Q12H [facility] Losartan Potassium 100 mg 01/18/18 16:00 01/21/18 10:25 Cozaar PO 100 mg DAILY GUI Administration Pantoprazole Sodium 40 mg 01/22/18 10:00 Protonix Inj IVP DAILY GUI Rosuvastatin Calcium 5 mg 01/20/18 22:00 01/21/18 21:24 Crestor PO 5 mg HS GUI Administration Spironolactone 50 mg 01/22/18 10:00 Aldactone PO DAILY GUI - Patient Studies Lab Studies: Lab Studies 01/22/18 01/22/18 01/22/18 Range/Units 06:13 06:13 05:14 WBC 7.4 (4.8-10.8) K/uL RBC 3.22 L (3.80-5.20) Mil/uL Hgb 9.2 L (11.0-16.0) g/dL Hct 28.0 L (34.0-47.0) % MCV 86.9 (81.0-99.0) fL MCH 28.5 (27.0-31.0) pg MCHC 32.8 L (33.0-37.0) g/dL RDW 17.0 H (11.5-14.5) % Plt Count 145 (130-400) K/uL MPV 11.0 (7.2-11.7) fL Neut % (Auto) 53.8 (50.0-75.0) % Lymph % (Auto) 23.9 (20.0-40.0) % Owsley % (Auto) 16.6 H (0.0-10.0) % Eos % (Auto) 5.0 H (0.0-4.0) % Baso % (Auto) 0.7 (0.0-2.0) % Neut # (Auto) 4.0 (1.8-7.0) K/uL Lymph # (Auto) 1.8 (1.0-4.3) K/uL [place]ley # (Auto) 1.2 H (0.0-0.8) K/uL Eos # (Auto) 0.4 (0.0-0.7) K/uL Baso # (Auto) 0.1 (0.0-0.2) K/uL Neutrophils % (Manual) (50-75) % Lymphocytes % (Manual) (20-40) % Monocytes % (Manual) (0-10) % Eosinophils % (Manual) (0-4) % Platelet Estimate (NORMAL) Poikilocytosis (manual Anisocytosis (manual) Ovalocytes PT (9.7-12.2) SECONDS INR APTT (21-34) SECONDS Puncture Site pCO2 (35-45) mm/Hg pO2 (80-100) mm/Hg HCO3 (21-28) mmol/L ABG pH (7.35-7.45) ABG Total CO2 (22-28) mmol/L ABG O2 Saturation (95-98) % ABG Base Excess (-2.0-3.0) mmol/L Bishop Test ABG Potassium (3.6-5.2) mmol/L A-a O2 Difference mm/Hg Respiratory Index Sodium 140 (132-148) mmol/l Chloride 96 L (98-107) mmol/L Glucose (65-105) mg/dl Lactate (0.7-2.1) mmol/L Vent Mode Mechanical Rate FiO2 % Tidal Volume PEEP Potassium 3.5 L (3.6-5.2) mmol/L Carbon Dioxide 28 (22-30) mmol/L Anion Gap 19 (10-20) BUN 33 H (7-17) mg/dL Creatinine 6.2 H (0.7-1.2) mg/dL Est GFR ( Amer) 9 Est GFR (Non-Af Amer) 7 POC Glucose (mg/dL) 67 (65-110) mg/dL Random Glucose 60 L (65-105) mg/dL Lactic Acid (0.7-2.1) mmol/L Calcium 8.2 L (8.6-10.4) mg/dl Phosphorus 4.6 H (2.5-4.5) mg/dL Magnesium 1.9 (1.6-2.3) mg/dL Total Bilirubin 1.3 (0.2-1.3) mg/dL AST 27 (14-36) U/L ALT 25 (9-52) U/L Alkaline Phosphatase 716 H D (38-126) U/L Ammonia (9-33) umol/L Total Protein 7.4 (6.3-8.3) g/dL Albumin 3.0 L (3.5-5.0) g/dL Globulin 4.5 H (2.2-3.9) gm/dL Albumin/Globulin Ratio 0.7 L (1.0-2.1) Arterial Blood Potassium (3.6-5.2) mmol/L 01/22/18 01/22/18 01/22/18 Range/Units 05:12 04:30 00:38 WBC (4.8-10.8) K/uL RBC (3.80-5.20) Mil/uL Hgb (11.0-16.0) g/dL Hct (34.0-47.0) % MCV (81.0-99.0) fL MCH (27.0-31.0) pg MCHC (33.0-37.0) g/dL RDW (11.5-14.5) % Plt Count (130-400) K/uL MPV (7.2-11.7) fL Neut % (Auto) (50.0-75.0) % Lymph % (Auto) (20.0-40.0) % Owsley % (Auto) (0.0-10.0) % Eos % (Auto) (0.0-4.0) % Baso % (Auto) (0.0-2.0) % Neut # (Auto) (1.8-7.0) K/uL Lymph # (Auto) (1.0-4.3) K/uL [place]wsley # (Auto) (0.0-0.8) K/uL Eos # (Auto) (0.0-0.7) K/uL Baso # (Auto) (0.0-0.2) K/uL Neutrophils % (Manual) (50-75) % Lymphocytes % (Manual) (20-40) % Monocytes % (Manual) (0-10) % Eosinophils % (Manual) (0-4) % Platelet Estimate (NORMAL) Poikilocytosis (manual Anisocytosis (manual) Ovalocytes PT (9.7-12.2) SECONDS INR APTT (21-34) SECONDS Puncture Site Rr pCO2 36 (35-45) mm/Hg pO2 79 L (80-100) mm/Hg HCO3 32.3 H (21-28) mmol/L ABG pH 7.56 H (7.35-7.45) ABG Total CO2 33.3 H (22-28) mmol/L ABG O2 Saturation 97.5 (95-98) % ABG Base Excess 9.5 H (-2.0-3.0) mmol/L Bishop Test Pos ABG Potassium 3.3 L (3.6-5.2) mmol/L A-a O2 Difference 233.0 mm/Hg Respiratory Index 2.9 Sodium 139.0 (132-148) mmol/l Chloride 103.0 (98-107) mmol/L Glucose 70 (65-105) mg/dl Lactate 1.1 (0.7-2.1) mmol/L Vent Mode Prvc Mechanical Rate 16 FiO2 50.0 % Tidal Volume 450 PEEP 5 Potassium (3.6-5.2) mmol/L Carbon Dioxide (22-30) mmol/L Anion Gap (10-20) BUN (7-17) mg/dL Creatinine (0.7-1.2) mg/dL Est GFR ( Amer) Est GFR (Non-Af Amer) POC Glucose (mg/dL) 64 L 79 (65-110) mg/dL Random Glucose (65-105) mg/dL Lactic Acid (0.7-2.1) mmol/L Calcium (8.6-10.4) mg/dl Phosphorus (2.5-4.5) mg/dL Magnesium (1.6-2.3) mg/dL Total Bilirubin (0.2-1.3) mg/dL AST (14-36) U/L ALT (9-52) U/L Alkaline Phosphatase (38-126) U/L Ammonia (9-33) umol/L Total Protein (6.3-8.3) g/dL Albumin (3.5-5.0) g/dL Globulin (2.2-3.9) gm/dL Albumin/Globulin Ratio (1.0-2.1) Arterial Blood Potassium 3.3 L (3.6-5.2) mmol/L 01/21/18 01/21/18 01/21/18 Range/Units 23:34 23:31 20:50 WBC (4.8-10.8) K/uL RBC (3.80-5.20) Mil/uL Hgb (11.0-16.0) g/dL Hct (34.0-47.0) % MCV (81.0-99.0) fL MCH (27.0-31.0) pg MCHC (33.0-37.0) g/dL RDW (11.5-14.5) % Plt Count (130-400) K/uL MPV (7.2-11.7) fL Neut % (Auto) (50.0-75.0) % Lymph % (Auto) (20.0-40.0) % Owsley % (Auto) (0.0-10.0) % Eos % (Auto) (0.0-4.0) % Baso % (Auto) (0.0-2.0) % Neut # (Auto) (1.8-7.0) K/uL Lymph # (Auto) (1.0-4.3) K/uL Owsley # (Auto) (0.0-0.8) K/uL Eos # (Auto) (0.0-0.7) K/uL Baso # (Auto) (0.0-0.2) K/uL Neutrophils % (Manual) (50-75) % Lymphocytes % (Manual) (20-40) % Monocytes % (Manual) (0-10) % Eosinophils % (Manual) (0-4) % Platelet Estimate (NORMAL) Poikilocytosis (manual Anisocytosis (manual) Ovalocytes PT (9.7-12.2) SECONDS INR APTT (21-34) SECONDS Puncture Site pCO2 (35-45) mm/Hg pO2 (80-100) mm/Hg HCO3 (21-28) mmol/L ABG pH (7.35-7.45) ABG Total CO2 (22-28) mmol/L ABG O2 Saturation (95-98) % ABG Base Excess (-2.0-3.0) mmol/L Bishop Test ABG Potassium (3.6-5.2) mmol/L A-a O2 Difference mm/Hg Respiratory Index Sodium (132-148) mmol/l Chloride (98-107) mmol/L Glucose (65-105) mg/dl Lactate (0.7-2.1) mmol/L Vent Mode Mechanical Rate FiO2 % Tidal Volume PEEP Potassium (3.6-5.2) mmol/L Carbon Dioxide (22-30) mmol/L Anion Gap (10-20) BUN (7-17) mg/dL Creatinine (0.7-1.2) mg/dL Est GFR ( Amer) Est GFR (Non-Af Amer) POC Glucose (mg/dL) 34 L* 31 L* (65-110) mg/dL Random Glucose (65-105) mg/dL Lactic Acid (0.7-2.1) mmol/L Calcium (8.6-10.4) mg/dl Phosphorus (2.5-4.5) mg/dL Magnesium (1.6-2.3) mg/dL Total Bilirubin (0.2-1.3) mg/dL AST (14-36) U/L ALT (9-52) U/L Alkaline Phosphatase (38-126) U/L Ammonia 77 H (9-33) umol/L Total Protein (6.3-8.3) g/dL Albumin (3.5-5.0) g/dL Globulin (2.2-3.9) gm/dL Albumin/Globulin Ratio (1.0-2.1) Arterial Blood Potassium (3.6-5.2) mmol/L 01/21/18 01/21/18 01/21/18 Range/Units 18:48 18:48 18:48 WBC (4.8-10.8) K/uL RBC (3.80-5.20) Mil/uL Hgb (11.0-16.0) g/dL Hct (34.0-47.0) % MCV (81.0-99.0) fL MCH (27.0-31.0) pg MCHC (33.0-37.0) g/dL RDW (11.5-14.5) % Plt Count (130-400) K/uL MPV (7.2-11.7) fL Neut % (Auto) (50.0-75.0) % Lymph % (Auto) (20.0-40.0) % Owsley % (Auto) (0.0-10.0) % Eos % (Auto) (0.0-4.0) % Baso % (Auto) (0.0-2.0) % Neut # (Auto) (1.8-7.0) K/uL Lymph # (Auto) (1.0-4.3) K/uL Owsley # (Auto) (0.0-0.8) K/uL Eos # (Auto) (0.0-0.7) K/uL Baso # (Auto) (0.0-0.2) K/uL Neutrophils % (Manual) (50-75) % Lymphocytes % (Manual) (20-40) % Monocytes % (Manual) (0-10) % Eosinophils % (Manual) (0-4) % Platelet Estimate (NORMAL) Poikilocytosis (manual Anisocytosis (manual) Ovalocytes PT 15.1 H (9.7-12.2) SECONDS INR 1.3 APTT 33 (21-34) SECONDS Puncture Site pCO2 (35-45) mm/Hg pO2 (80-100) mm/Hg HCO3 (21-28) mmol/L ABG pH (7.35-7.45) ABG Total CO2 (22-28) mmol/L ABG O2 Saturation (95-98) % ABG Base Excess (-2.0-3.0) mmol/L Bishop Test ABG Potassium (3.6-5.2) mmol/L A-a O2 Difference mm/Hg Respiratory Index Sodium 142 (132-148) mmol/l Chloride 96 L (98-107) mmol/L Glucose (65-105) mg/dl Lactate (0.7-2.1) mmol/L Vent Mode Mechanical Rate FiO2 % Tidal Volume PEEP Potassium 4.1 (3.6-5.2) mmol/L Carbon Dioxide 30 (22-30) mmol/L Anion Gap 20 (10-20) BUN 30 H (7-17) mg/dL Creatinine 5.8 H (0.7-1.2) mg/dL Est GFR ( Amer) 10 Est GFR (Non-Af Amer) 8 POC Glucose (mg/dL) (65-110) mg/dL Random Glucose 119 H (65-105) mg/dL Lactic Acid 1.4 (0.7-2.1) mmol/L Calcium 8.6 (8.6-10.4) mg/dl Phosphorus (2.5-4.5) mg/dL Magnesium (1.6-2.3) mg/dL Total Bilirubin 1.9 H (0.2-1.3) mg/dL AST 37 H (14-36) U/L ALT 28 (9-52) U/L Alkaline Phosphatase 924 H (38-126) U/L Ammonia (9-33) umol/L Total Protein 8.7 H (6.3-8.3) g/dL Albumin 3.4 L (3.5-5.0) g/dL Globulin 5.4 H (2.2-3.9) gm/dL Albumin/Globulin Ratio 0.6 L (1.0-2.1) Arterial Blood Potassium (3.6-5.2) mmol/L 01/21/18 01/21/18 01/21/18 Range/Units 18:48 17:05 16:19 WBC 9.8 (4.8-10.8) K/uL RBC 3.47 L (3.80-5.20) Mil/uL Hgb 9.7 L (11.0-16.0) g/dL Hct 30.2 L (34.0-47.0) % MCV 87.0 D (81.0-99.0) fL MCH 28.0 (27.0-31.0) pg MCHC 32.2 L (33.0-37.0) g/dL RDW 16.9 H (11.5-14.5) % Plt Count 169 (130-400) K/uL MPV 10.4 (7.2-11.7) fL Neut % (Auto) 73.2 (50.0-75.0) % Lymph % (Auto) 8.0 L (20.0-40.0) % Owsley % (Auto) 15.0 H (0.0-10.0) % Eos % (Auto) 3.2 (0.0-4.0) % Baso % (Auto) 0.6 (0.0-2.0) % Neut # (Auto) 7.2 H (1.8-7.0) K/uL Lymph # (Auto) 0.8 L (1.0-4.3) K/uL Owsley # (Auto) 1.5 H (0.0-0.8) K/uL Eos # (Auto) 0.3 (0.0-0.7) K/uL Baso # (Auto) 0.1 (0.0-0.2) K/uL Neutrophils % (Manual) 78 H (50-75) % Lymphocytes % (Manual) 10 L (20-40) % Monocytes % (Manual) 10 (0-10) % Eosinophils % (Manual) 2 (0-4) % Platelet Estimate Normal (NORMAL) Poikilocytosis (manual Slight Anisocytosis (manual) Slight Ovalocytes Slight PT (9.7-12.2) SECONDS INR APTT (21-34) SECONDS Puncture Site Rra pCO2 45 (35-45) mm/Hg pO2 310 H (80-100) mm/Hg HCO3 29.4 H (21-28) mmol/L ABG pH 7.44 (7.35-7.45) ABG Total CO2 32.0 H (22-28) mmol/L ABG O2 Saturation 99.6 H (95-98) % ABG Base Excess 5.6 H (-2.0-3.0) mmol/L Bishop Test Pos ABG Potassium 3.9 (3.6-5.2) mmol/L A-a O2 Difference 347.0 mm/Hg Respiratory Index 1.1 Sodium 139.0 (132-148) mmol/l Chloride 104.0 (98-107) mmol/L Glucose 151 H (65-105) mg/dl Lactate 1.2 (0.7-2.1) mmol/L Vent Mode Mechanical Rate FiO2 100.0 % Tidal Volume PEEP Potassium (3.6-5.2) mmol/L Carbon Dioxide (22-30) mmol/L Anion Gap (10-20) BUN (7-17) mg/dL Creatinine (0.7-1.2) mg/dL Est GFR ( Amer) Est GFR (Non-Af Amer) POC Glucose (mg/dL) 148 H (65-110) mg/dL Random Glucose (65-105) mg/dL Lactic Acid (0.7-2.1) mmol/L Calcium (8.6-10.4) mg/dl Phosphorus (2.5-4.5) mg/dL Magnesium (1.6-2.3) mg/dL Total Bilirubin (0.2-1.3) mg/dL AST (14-36) U/L ALT (9-52) U/L Alkaline Phosphatase (38-126) U/L Ammonia (9-33) umol/L Total Protein (6.3-8.3) g/dL Albumin (3.5-5.0) g/dL Globulin (2.2-3.9) gm/dL Albumin/Globulin Ratio (1.0-2.1) Arterial Blood Potassium 3.9 (3.6-5.2) mmol/L 01/21/18 Range/Units 11:03 WBC (4.8-10.8) K/uL RBC (3.80-5.20) Mil/uL Hgb (11.0-16.0) g/dL Hct (34.0-47.0) % MCV (81.0-99.0) fL MCH (27.0-31.0) pg MCHC (33.0-37.0) g/dL RDW (11.5-14.5) % Plt Count (130-400) K/uL MPV (7.2-11.7) fL Neut % (Auto) (50.0-75.0) % Lymph % (Auto) (20.0-40.0) % [place]ws[place] % (Auto) (0.0-10.0) % Eos % (Auto) (0.0-4.0) % Baso % (Auto) (0.0-2.0) % Neut # (Auto) (1.8-7.0) K/uL Lymph # (Auto) (1.0-4.3) K/uL [place]ley # (Auto) (0.0-0.8) K/uL Eos # (Auto) (0.0-0.7) K/uL Baso # (Auto) (0.0-0.2) K/uL Neutrophils % (Manual) (50-75) % Lymphocytes % (Manual) (20-40) % Monocytes % (Manual) (0-10) % Eosinophils % (Manual) (0-4) % Platelet Estimate (NORMAL) Poikilocytosis (manual Anisocytosis (manual) Ovalocytes PT (9.7-12.2) SECONDS INR APTT (21-34) SECONDS Puncture Site pCO2 (35-45) mm/Hg pO2 (80-100) mm/Hg HCO3 (21-28) mmol/L ABG pH (7.35-7.45) ABG Total CO2 (22-28) mmol/L ABG O2 Saturation (95-98) % ABG Base Excess (-2.0-3.0) mmol/L Bishop Test ABG Potassium (3.6-5.2) mmol/L A-a O2 Difference mm/Hg Respiratory Index Sodium (132-148) mmol/l Chloride (98-107) mmol/L Glucose (65-105) mg/dl Lactate (0.7-2.1) mmol/L Vent Mode Mechanical Rate FiO2 % Tidal Volume PEEP Potassium (3.6-5.2) mmol/L Carbon Dioxide (22-30) mmol/L Anion Gap (10-20) BUN (7-17) mg/dL Creatinine (0.7-1.2) mg/dL Est GFR ( Amer) Est GFR (Non-Af Amer) POC Glucose (mg/dL) 235 H (65-110) mg/dL Random Glucose (65-105) mg/dL Lactic Acid (0.7-2.1) mmol/L Calcium (8.6-10.4) mg/dl Phosphorus (2.5-4.5) mg/dL Magnesium (1.6-2.3) mg/dL Total Bilirubin (0.2-1.3) mg/dL AST (14-36) U/L ALT (9-52) U/L Alkaline Phosphatase (38-126) U/L Ammonia (9-33) umol/L Total Protein (6.3-8.3) g/dL Albumin (3.5-5.0) g/dL Globulin (2.2-3.9) gm/dL Albumin/Globulin Ratio (1.0-2.1) Arterial Blood Potassium (3.6-5.2) mmol/L Laboratory Results - last 24 hr 01/21/18 01/21/18 01/21/18 11:03 16:19 17:05 WBC RBC Hgb Hct MCV MCH MCHC RDW Plt Count MPV Neut % (Auto) Lymph % (Auto) [place] % (Auto) Eos % (Auto) Baso % (Auto) Neut # (Auto) Lymph # (Auto) [place] # (Auto) Eos # (Auto) Baso # (Auto) Neutrophils % (Manual) Lymphocytes % (Manual) Monocytes % (Manual) Eosinophils % (Manual) Platelet Estimate Poikilocytosis (manual Anisocytosis (manual) Ovalocytes PT INR APTT Puncture Site Rra pCO2 45 pO2 310 H HCO3 29.4 H ABG pH 7.44 ABG Total CO2 32.0 H ABG O2 Saturation 99.6 H ABG Base Excess 5.6 H Bishop Test Pos ABG Potassium 3.9 A-a O2 Difference 347.0 Respiratory Index 1.1 Sodium 139.0 Chloride 104.0 Glucose 151 H Lactate 1.2 Vent Mode Mechanical Rate FiO2 100.0 Tidal Volume PEEP Potassium Carbon Dioxide Anion Gap BUN Creatinine Est GFR ( Amer) Est GFR (Non-Af Amer) POC Glucose (mg/dL) 235 H 148 H Random Glucose Lactic Acid Calcium Phosphorus Magnesium Total Bilirubin AST ALT Alkaline Phosphatase Ammonia Total Protein Albumin Globulin Albumin/Globulin Ratio Arterial Blood Potassium 3.9 01/21/18 01/21/18 01/21/18 18:48 18:48 18:48 WBC 9.8 RBC 3.47 L Hgb 9.7 L Hct 30.2 L MCV 87.0 D MCH 28.0 MCHC 32.2 L RDW 16.9 H Plt Count 169 MPV 10.4 Neut % (Auto) 73.2 Lymph % (Auto) 8.0 L [place]wsley % (Auto) 15.0 H Eos % (Auto) 3.2 Baso % (Auto) 0.6 Neut # (Auto) 7.2 H Lymph # (Auto) 0.8 L [place] # (Auto) 1.5 H Eos # (Auto) 0.3 Baso # (Auto) 0.1 Neutrophils % (Manual) 78 H Lymphocytes % (Manual) 10 L Monocytes % (Manual) 10 Eosinophils % (Manual) 2 Platelet Estimate Normal Poikilocytosis (manual Slight Anisocytosis (manual) Slight Ovalocytes Slight PT 15.1 H INR 1.3 APTT 33 Puncture Site pCO2 pO2 HCO3 ABG pH ABG Total CO2 ABG O2 Saturation ABG Base Excess Bishop Test ABG Potassium A-a O2 Difference Respiratory Index Sodium 142 Chloride 96 L Glucose Lactate Vent Mode Mechanical Rate FiO2 Tidal Volume PEEP Potassium 4.1 Carbon Dioxide 30 Anion Gap 20 BUN 30 H Creatinine 5.8 H Est GFR ( Amer) 10 Est GFR (Non-Af Amer) 8 POC Glucose (mg/dL) Random Glucose 119 H Lactic Acid Calcium 8.6 Phosphorus Magnesium Total Bilirubin 1.9 H AST 37 H ALT 28 Alkaline Phosphatase 924 H Ammonia Total Protein 8.7 H Albumin 3.4 L Globulin 5.4 H Albumin/Globulin Ratio 0.6 L Arterial Blood Potassium 01/21/18 01/21/18 01/21/18 18:48 20:50 23:31 WBC RBC Hgb Hct MCV MCH MCHC RDW Plt Count MPV Neut % (Auto) Lymph % (Auto) [place] % (Auto) Eos % (Auto) Baso % (Auto) Neut # (Auto) Lymph # (Auto) [place]wsley # (Auto) Eos # (Auto) Baso # (Auto) Neutrophils % (Manual) Lymphocytes % (Manual) Monocytes % (Manual) Eosinophils % (Manual) Platelet Estimate Poikilocytosis (manual Anisocytosis (manual) Ovalocytes PT INR APTT Puncture Site pCO2 pO2 HCO3 ABG pH ABG Total CO2 ABG O2 Saturation ABG Base Excess Bishop Test ABG Potassium A-a O2 Difference Respiratory Index Sodium Chloride Glucose Lactate Vent Mode Mechanical Rate FiO2 Tidal Volume PEEP Potassium Carbon Dioxide Anion Gap BUN Creatinine Est GFR ( Amer) Est GFR (Non-Af Amer) POC Glucose (mg/dL) 31 L* Random Glucose Lactic Acid 1.4 Calcium Phosphorus Magnesium Total Bilirubin AST ALT Alkaline Phosphatase Ammonia 77 H Total Protein Albumin Globulin Albumin/Globulin Ratio Arterial Blood Potassium 01/21/18 01/22/18 01/22/18 23:34 00:38 04:30 WBC RBC Hgb Hct MCV MCH MCHC RDW Plt Count MPV Neut % (Auto) Lymph % (Auto) [place] % (Auto) Eos % (Auto) Baso % (Auto) Neut # (Auto) Lymph # (Auto) [place]wsley # (Auto) Eos # (Auto) Baso # (Auto) Neutrophils % (Manual) Lymphocytes % (Manual) Monocytes % (Manual) Eosinophils % (Manual) Platelet Estimate Poikilocytosis (manual Anisocytosis (manual) Ovalocytes PT INR APTT Puncture Site Rr pCO2 36 pO2 79 L HCO3 32.3 H ABG pH 7.56 H ABG Total CO2 33.3 H ABG O2 Saturation 97.5 ABG Base Excess 9.5 H Bishop Test Pos ABG Potassium 3.3 L A-a O2 Difference 233.0 Respiratory Index 2.9 Sodium 139.0 Chloride 103.0 Glucose 70 Lactate 1.1 Vent Mode Prvc Mechanical Rate 16 FiO2 50.0 Tidal Volume 450 PEEP 5 Potassium Carbon Dioxide Anion Gap BUN Creatinine Est GFR ( Amer) Est GFR (Non-Af Amer) POC Glucose (mg/dL) 34 L* 79 Random Glucose Lactic Acid Calcium Phosphorus Magnesium Total Bilirubin AST ALT Alkaline Phosphatase Ammonia Total Protein Albumin Globulin Albumin/Globulin Ratio Arterial Blood Potassium 3.3 L 01/22/18 01/22/18 01/22/18 05:12 05:14 06:13 WBC 7.4 RBC 3.22 L Hgb 9.2 L Hct 28.0 L MCV 86.9 MCH 28.5 MCHC 32.8 L RDW 17.0 H Plt Count 145 MPV 11.0 Neut % (Auto) 53.8 Lymph % (Auto) 23.9 Owsley % (Auto) 16.6 H Eos % (Auto) 5.0 H Baso % (Auto) 0.7 Neut # (Auto) 4.0 Lymph # (Auto) 1.8 Owsley # (Auto) 1.2 H Eos # (Auto) 0.4 Baso # (Auto) 0.1 Neutrophils % (Manual) Lymphocytes % (Manual) Monocytes % (Manual) Eosinophils % (Manual) Platelet Estimate Poikilocytosis (manual Anisocytosis (manual) Ovalocytes PT INR APTT Puncture Site pCO2 pO2 HCO3 ABG pH ABG Total CO2 ABG O2 Saturation ABG Base Excess Bishop Test ABG Potassium A-a O2 Difference Respiratory Index Sodium Chloride Glucose Lactate Vent Mode Mechanical Rate FiO2 Tidal Volume PEEP Potassium Carbon Dioxide Anion Gap BUN Creatinine Est GFR ( Amer) Est GFR (Non-Af Amer) POC Glucose (mg/dL) 64 L 67 Random Glucose Lactic Acid Calcium Phosphorus Magnesium Total Bilirubin AST ALT Alkaline Phosphatase Ammonia Total Protein Albumin Globulin Albumin/Globulin Ratio Arterial Blood Potassium 01/22/18 06:13 WBC RBC Hgb Hct MCV MCH MCHC RDW Plt Count MPV Neut % (Auto) Lymph % (Auto) [place]ws[place] % (Auto) Eos % (Auto) Baso % (Auto) Neut # (Auto) Lymph # (Auto) [place]wsley # (Auto) Eos # (Auto) Baso # (Auto) Neutrophils % (Manual) Lymphocytes % (Manual) Monocytes % (Manual) Eosinophils % (Manual) Platelet Estimate Poikilocytosis (manual Anisocytosis (manual) Ovalocytes PT INR APTT Puncture Site pCO2 pO2 HCO3 ABG pH ABG Total CO2 ABG O2 Saturation ABG Base Excess Bishop Test ABG Potassium A-a O2 Difference Respiratory Index Sodium 140 Chloride 96 L Glucose Lactate Vent Mode Mechanical Rate FiO2 Tidal Volume PEEP Potassium 3.5 L Carbon Dioxide 28 Anion Gap 19 BUN 33 H Creatinine 6.2 H Est GFR ( Amer) 9 Est GFR (Non-Af Amer) 7 POC Glucose (mg/dL) Random Glucose 60 L Lactic Acid Calcium 8.2 L Phosphorus 4.6 H Magnesium 1.9 Total Bilirubin 1.3 AST 27 ALT 25 Alkaline Phosphatase 716 H D Ammonia Total Protein 7.4 Albumin 3.0 L Globulin 4.5 H Albumin/Globulin Ratio 0.7 L Arterial Blood Potassium Fingerstick Blood Sugar Results: 67 Critical Care Progress Note - Nutrition Nutrition: Nutrition Category Date Time Status Renal Diet [DIET] Diets 01/20/18 Lunch Active Assessment/Plan - Assessment and Plan (Free Text) Assessment: 42F R. Pleural effusion 2/2 ascites, ESRD on HD Plan: Neuro: intubated sedated on diprivan Cardio: History of HTN, no acute issues * amlodipine 5 PO QD * clonidine 0.1 PO TID * losartan 100 PO QD Pulm:History of COPD. Intubated for airway protection during BARMAID on 01/21, Large R. Pleural effusion 2/2 ascites. Plan for thoracentesiss today. Of note patient has had pleural effusion drained 3x in the last month * Duonebs Q6 GI: History of gastroparesis. Ascitis, Acute graciela was considered but HIDA is negative. MRCP showed stones and wall thickening but is likely reactive 2/2 to ascitis, No CBD dilation. No surgical intervention planned * Aldactone 50 PO QD * Nepro, F/U Dietary goal * Reglan 10 IV Q6 Renal: ESRD on HD MWF. L. AVF Endo: IDDM, accuchecks Q6 * ISS aspart * Glargine 12u SC Q12 * crestor 5 PO HS Fluids/Electrolytes: * HypoK replaced 20 considering dialysis today ID: Cultures negative so far. F/U repeat BC. Stopped abx as patient is afebrile , no white count and HIDA negative PPX: Heparin, Protonix 40 IV Q12 <Eduardo Salcido S - Last Filed: 01/22/18 16:30> CCU Objective - Vital Signs / Intake & Output Intake and Output (Last 8hrs): Intake & Output 01/22/18 01/22/18 01/22/18 06:59 14:59 22:59 Intake Total 900.0 810.0 Output Total 400 0 Balance 500.0 810.0 Weight 144 lb 14.4 oz Intake: IV 100 100 Intake, IV Amount 800.0 650.0 Right Internal Jugular 100.0 75.0 right medial port 700 350 rt medial port y 225 Oral 0 Tube Feeding 60 Output: Gastric Amount 400 Stomach 400 Urine 0 0 Urine, Voided 0 0 - Medications Active Medications: Active Medications Generic Name Dose Route Start Last Admin Trade Name Freq PRN Reason Stop Dose Admin Albuterol/Ipratropium 3 ml 01/21/18 20:00 01/22/18 13:20 Duoneb 3 Mg/0.5 Mg (3 Ml) Ud INH 3 ml RQ6 GUI Administration Amlodipine Besylate 5 mg 01/18/18 15:45 01/22/18 10:06 Norvasc PO 5 mg DAILY GUI Administration Clonidine HCl 0.1 mg 01/18/18 18:00 01/22/18 14:53 Catapres PO 0.1 mg TID GUI Administration Heparin Sodium (Porcine) 5,000 units 01/18/18 22:00 01/22/18 10:43 Heparin SC Not Given Q12 GUI Propofol 1,000 mg in 100 mls @ 2.1 mls/hr 01/21/18 17:27 01/22/18 09:11 Diprivan IV Infused .Q24H PRN Titration TITRATE PER MD ORDER Protocol 5 MCG/KG/MIN Insulin Aspart 0 unit 01/21/18 18:30 01/22/18 12:30 Novolog SC Not Given Q6H [facility] Protocol Insulin Glargine 12 unit 01/19/18 21:00 01/22/18 09:17 Lantus SC Not Given Q12H GUI Losartan Potassium 100 mg 01/18/18 16:00 01/22/18 10:06 Cozaar PO 100 mg DAILY GUI Administration Metoclopramide HCl 10 mg 01/22/18 10:37 Reglan IVP Q6 PRN Nausea/Vomiting Pantoprazole Sodium 40 mg 01/22/18 10:00 01/22/18 10:06 Protonix Inj IVP 40 mg DAILY GUI Administration Rosuvastatin Calcium 5 mg 01/20/18 22:00 01/21/18 21:24 Crestor PO 5 mg HS GUI Administration Spironolactone 50 mg 01/22/18 10:00 01/22/18 10:07 Aldactone PO 50 mg DAILY GUI Administration - Patient Studies Lab Studies: Lab Studies 01/22/18 01/22/18 01/22/18 Range/Units 11:50 06:13 06:13 WBC 7.4 (4.8-10.8) K/uL RBC 3.22 L (3.80-5.20) Mil/uL Hgb 9.2 L (11.0-16.0) g/dL Hct 28.0 L (34.0-47.0) % MCV 86.9 (81.0-99.0) fL MCH 28.5 (27.0-31.0) pg MCHC 32.8 L (33.0-37.0) g/dL RDW 17.0 H (11.5-14.5) % Plt Count 145 (130-400) K/uL MPV 11.0 (7.2-11.7) fL Neut % (Auto) 53.8 (50.0-75.0) % Lymph % (Auto) 23.9 (20.0-40.0) % Owsley % (Auto) 16.6 H (0.0-10.0) % Eos % (Auto) 5.0 H (0.0-4.0) % Baso % (Auto) 0.7 (0.0-2.0) % Neut # (Auto) 4.0 (1.8-7.0) K/uL Lymph # (Auto) 1.8 (1.0-4.3) K/uL Owsley # (Auto) 1.2 H (0.0-0.8) K/uL Eos # (Auto) 0.4 (0.0-0.7) K/uL Baso # (Auto) 0.1 (0.0-0.2) K/uL Neutrophils % (Manual) (50-75) % Lymphocytes % (Manual) (20-40) % Monocytes % (Manual) (0-10) % Eosinophils % (Manual) (0-4) % Platelet Estimate (NORMAL) Poikilocytosis (manual Anisocytosis (manual) Ovalocytes PT (9.7-12.2) SECONDS INR APTT (21-34) SECONDS Puncture Site pCO2 (35-45) mm/Hg pO2 (80-100) mm/Hg HCO3 (21-28) mmol/L ABG pH (7.35-7.45) ABG Total CO2 (22-28) mmol/L ABG O2 Saturation (95-98) % ABG Base Excess (-2.0-3.0) mmol/L Bishop Test ABG Potassium (3.6-5.2) mmol/L A-a O2 Difference mm/Hg Respiratory Index Sodium 140 (132-148) mmol/l Chloride 96 L (98-107) mmol/L Glucose (65-105) mg/dl Lactate (0.7-2.1) mmol/L Vent Mode Mechanical Rate FiO2 % Tidal Volume PEEP Potassium 3.5 L (3.6-5.2) mmol/L Carbon Dioxide 28 (22-30) mmol/L Anion Gap 19 (10-20) BUN 33 H (7-17) mg/dL Creatinine 6.2 H (0.7-1.2) mg/dL Est GFR ( Amer) 9 Est GFR (Non-Af Amer) 7 POC Glucose (mg/dL) 75 (65-110) mg/dL Random Glucose 60 L (65-105) mg/dL Lactic Acid (0.7-2.1) mmol/L Calcium 8.2 L (8.6-10.4) mg/dl Phosphorus 4.6 H (2.5-4.5) mg/dL Magnesium 1.9 (1.6-2.3) mg/dL Total Bilirubin 1.3 (0.2-1.3) mg/dL AST 27 (14-36) U/L ALT 25 (9-52) U/L Alkaline Phosphatase 716 H D (38-126) U/L Ammonia (9-33) umol/L Total Protein 7.4 (6.3-8.3) g/dL Albumin 3.0 L (3.5-5.0) g/dL Globulin 4.5 H (2.2-3.9) gm/dL Albumin/Globulin Ratio 0.7 L (1.0-2.1) Arterial Blood Potassium (3.6-5.2) mmol/L 01/22/18 01/22/18 01/22/18 Range/Units 05:14 05:12 04:30 WBC (4.8-10.8) K/uL RBC (3.80-5.20) Mil/uL Hgb (11.0-16.0) g/dL Hct (34.0-47.0) % MCV (81.0-99.0) fL MCH (27.0-31.0) pg MCHC (33.0-37.0) g/dL RDW (11.5-14.5) % Plt Count (130-400) K/uL MPV (7.2-11.7) fL Neut % (Auto) (50.0-75.0) % Lymph % (Auto) (20.0-40.0) % Owsley % (Auto) (0.0-10.0) % Eos % (Auto) (0.0-4.0) % Baso % (Auto) (0.0-2.0) % Neut # (Auto) (1.8-7.0) K/uL Lymph # (Auto) (1.0-4.3) K/uL Owsley # (Auto) (0.0-0.8) K/uL Eos # (Auto) (0.0-0.7) K/uL Baso # (Auto) (0.0-0.2) K/uL Neutrophils % (Manual) (50-75) % Lymphocytes % (Manual) (20-40) % Monocytes % (Manual) (0-10) % Eosinophils % (Manual) (0-4) % Platelet Estimate (NORMAL) Poikilocytosis (manual Anisocytosis (manual) Ovalocytes PT (9.7-12.2) SECONDS INR APTT (21-34) SECONDS Puncture Site Rr pCO2 36 (35-45) mm/Hg pO2 79 L (80-100) mm/Hg HCO3 32.3 H (21-28) mmol/L ABG pH 7.56 H (7.35-7.45) ABG Total CO2 33.3 H (22-28) mmol/L ABG O2 Saturation 97.5 (95-98) % ABG Base Excess 9.5 H (-2.0-3.0) mmol/L Bishop Test Pos ABG Potassium 3.3 L (3.6-5.2) mmol/L A-a O2 Difference 233.0 mm/Hg Respiratory Index 2.9 Sodium 139.0 (132-148) mmol/l Chloride 103.0 (98-107) mmol/L Glucose 70 (65-105) mg/dl Lactate 1.1 (0.7-2.1) mmol/L Vent Mode Prvc Mechanical Rate 16 FiO2 50.0 % Tidal Volume 450 PEEP 5 Potassium (3.6-5.2) mmol/L Carbon Dioxide (22-30) mmol/L Anion Gap (10-20) BUN (7-17) mg/dL Creatinine (0.7-1.2) mg/dL Est GFR ( Amer) Est GFR (Non-Af Amer) POC Glucose (mg/dL) 67 64 L (65-110) mg/dL Random Glucose (65-105) mg/dL Lactic Acid (0.7-2.1) mmol/L Calcium (8.6-10.4) mg/dl Phosphorus (2.5-4.5) mg/dL Magnesium (1.6-2.3) mg/dL Total Bilirubin (0.2-1.3) mg/dL AST (14-36) U/L ALT (9-52) U/L Alkaline Phosphatase (38-126) U/L Ammonia (9-33) umol/L Total Protein (6.3-8.3) g/dL Albumin (3.5-5.0) g/dL Globulin (2.2-3.9) gm/dL Albumin/Globulin Ratio (1.0-2.1) Arterial Blood Potassium 3.3 L (3.6-5.2) mmol/L 01/22/18 01/21/18 01/21/18 Range/Units 00:38 23:34 23:31 WBC (4.8-10.8) K/uL RBC (3.80-5.20) Mil/uL Hgb (11.0-16.0) g/dL Hct (34.0-47.0) % MCV (81.0-99.0) fL MCH (27.0-31.0) pg MCHC (33.0-37.0) g/dL RDW (11.5-14.5) % Plt Count (130-400) K/uL MPV (7.2-11.7) fL Neut % (Auto) (50.0-75.0) % Lymph % (Auto) (20.0-40.0) % Owsley % (Auto) (0.0-10.0) % Eos % (Auto) (0.0-4.0) % Baso % (Auto) (0.0-2.0) % Neut # (Auto) (1.8-7.0) K/uL Lymph # (Auto) (1.0-4.3) K/uL Owsley # (Auto) (0.0-0.8) K/uL Eos # (Auto) (0.0-0.7) K/uL Baso # (Auto) (0.0-0.2) K/uL Neutrophils % (Manual) (50-75) % Lymphocytes % (Manual) (20-40) % Monocytes % (Manual) (0-10) % Eosinophils % (Manual) (0-4) % Platelet Estimate (NORMAL) Poikilocytosis (manual Anisocytosis (manual) Ovalocytes PT (9.7-12.2) SECONDS INR APTT (21-34) SECONDS Puncture Site pCO2 (35-45) mm/Hg pO2 (80-100) mm/Hg HCO3 (21-28) mmol/L ABG pH (7.35-7.45) ABG Total CO2 (22-28) mmol/L ABG O2 Saturation (95-98) % ABG Base Excess (-2.0-3.0) mmol/L Bishop Test ABG Potassium (3.6-5.2) mmol/L A-a O2 Difference mm/Hg Respiratory Index Sodium (132-148) mmol/l Chloride (98-107) mmol/L Glucose (65-105) mg/dl Lactate (0.7-2.1) mmol/L Vent Mode Mechanical Rate FiO2 % Tidal Volume PEEP Potassium (3.6-5.2) mmol/L Carbon Dioxide (22-30) mmol/L Anion Gap (10-20) BUN (7-17) mg/dL Creatinine (0.7-1.2) mg/dL Est GFR ( Amer) Est GFR (Non-Af Amer) POC Glucose (mg/dL) 79 34 L* 31 L* (65-110) mg/dL Random Glucose (65-105) mg/dL Lactic Acid (0.7-2.1) mmol/L Calcium (8.6-10.4) mg/dl Phosphorus (2.5-4.5) mg/dL Magnesium (1.6-2.3) mg/dL Total Bilirubin (0.2-1.3) mg/dL AST (14-36) U/L ALT (9-52) U/L Alkaline Phosphatase (38-126) U/L Ammonia (9-33) umol/L Total Protein (6.3-8.3) g/dL Albumin (3.5-5.0) g/dL Globulin (2.2-3.9) gm/dL Albumin/Globulin Ratio (1.0-2.1) Arterial Blood Potassium (3.6-5.2) mmol/L 01/21/18 01/21/1801/21/18 Range/Units 20:50 18:48 18:48 WBC (4.8-10.8) K/uL RBC (3.80-5.20) Mil/uL Hgb (11.0-16.0) g/dL Hct (34.0-47.0) % MCV (81.0-99.0) fL MCH (27.0-31.0) pg MCHC (33.0-37.0) g/dL RDW (11.5-14.5) % Plt Count (130-400) K/uL MPV (7.2-11.7) fL Neut % (Auto) (50.0-75.0) % Lymph % (Auto) (20.0-40.0) % Owsley % (Auto) (0.0-10.0) % Eos % (Auto) (0.0-4.0) % Baso % (Auto) (0.0-2.0) % Neut # (Auto) (1.8-7.0) K/uL Lymph # (Auto) (1.0-4.3) K/uL Owsley # (Auto) (0.0-0.8) K/uL Eos # (Auto) (0.0-0.7) K/uL Baso # (Auto) (0.0-0.2) K/uL Neutrophils % (Manual) (50-75) % Lymphocytes % (Manual) (20-40) % Monocytes % (Manual) (0-10) % Eosinophils % (Manual) (0-4) % Platelet Estimate (NORMAL) Poikilocytosis (manual Anisocytosis (manual) Ovalocytes PT (9.7-12.2) SECONDS INR APTT (21-34) SECONDS Puncture Site pCO2 (35-45) mm/Hg pO2 (80-100) mm/Hg HCO3 (21-28) mmol/L ABG pH (7.35-7.45) ABG Total CO2 (22-28) mmol/L ABG O2 Saturation (95-98) % ABG Base Excess (-2.0-3.0) mmol/L Bishop Test ABG Potassium (3.6-5.2) mmol/L A-a O2 Difference mm/Hg Respiratory Index Sodium 142 (132-148) mmol/l Chloride 96 L (98-107) mmol/L Glucose (65-105) mg/dl Lactate (0.7-2.1) mmol/L Vent Mode Mechanical Rate FiO2 % Tidal Volume PEEP Potassium 4.1 (3.6-5.2) mmol/L Carbon Dioxide 30 (22-30) mmol/L Anion Gap 20 (10-20) BUN 30 H (7-17) mg/dL Creatinine 5.8 H (0.7-1.2) mg/dL Est GFR ( Amer) 10 Est GFR (Non-Af Amer) 8 POC Glucose (mg/dL) (65-110) mg/dL Random Glucose 119 H (65-105) mg/dL Lactic Acid 1.4 (0.7-2.1) mmol/L Calcium 8.6 (8.6-10.4) mg/dl Phosphorus (2.5-4.5) mg/dL Magnesium (1.6-2.3) mg/dL Total Bilirubin 1.9 H (0.2-1.3) mg/dL AST 37 H (14-36) U/L ALT 28 (9-52) U/L Alkaline Phosphatase 924 H (38-126) U/L Ammonia 77 H (9-33) umol/L Total Protein 8.7 H (6.3-8.3) g/dL Albumin 3.4 L (3.5-5.0) g/dL Globulin 5.4 H (2.2-3.9) gm/dL Albumin/Globulin Ratio 0.6 L (1.0-2.1) Arterial Blood Potassium (3.6-5.2) mmol/L 01/21/18 01/21/18 01/21/18 Range/Units 18:48 18:48 17:05 WBC 9.8 (4.8-10.8) K/uL RBC 3.47 L (3.80-5.20) Mil/uL Hgb 9.7 L (11.0-16.0) g/dL Hct 30.2 L (34.0-47.0) % MCV 87.0 D (81.0-99.0) fL MCH 28.0 (27.0-31.0) pg MCHC 32.2 L (33.0-37.0) g/dL RDW 16.9 H (11.5-14.5) % Plt Count 169 (130-400) K/uL MPV 10.4 (7.2-11.7) fL Neut % (Auto) 73.2 (50.0-75.0) % Lymph % (Auto) 8.0 L (20.0-40.0) % Owsley % (Auto) 15.0 H (0.0-10.0) % Eos % (Auto) 3.2 (0.0-4.0) % Baso % (Auto) 0.6 (0.0-2.0) % Neut # (Auto) 7.2 H (1.8-7.0) K/uL Lymph # (Auto) 0.8 L (1.0-4.3) K/uL Owsley # (Auto) 1.5 H (0.0-0.8) K/uL Eos # (Auto) 0.3 (0.0-0.7) K/uL Baso # (Auto) 0.1 (0.0-0.2) K/uL Neutrophils % (Manual) 78 H (50-75) % Lymphocytes % (Manual) 10 L (20-40) % Monocytes % (Manual) 10 (0-10) % Eosinophils % (Manual) 2 (0-4) % Platelet Estimate Normal (NORMAL) Poikilocytosis (manual Slight Anisocytosis (manual) Slight Ovalocytes Slight PT 15.1 H (9.7-12.2) SECONDS INR 1.3 APTT 33 (21-34) SECONDS Puncture Site Rra pCO2 45 (35-45) mm/Hg pO2 310 H (80-100) mm/Hg HCO3 29.4 H (21-28) mmol/L ABG pH 7.44 (7.35-7.45) ABG Total CO2 32.0 H (22-28) mmol/L ABG O2 Saturation 99.6 H (95-98) % ABG Base Excess 5.6 H (-2.0-3.0) mmol/L Bishop Test Pos ABG Potassium 3.9 (3.6-5.2) mmol/L A-a O2 Difference 347.0 mm/Hg Respiratory Index 1.1 Sodium 139.0 (132-148) mmol/l Chloride 104.0 (98-107) mmol/L Glucose 151 H (65-105) mg/dl Lactate 1.2 (0.7-2.1) mmol/L Vent Mode Mechanical Rate FiO2 100.0 % Tidal Volume PEEP Potassium (3.6-5.2) mmol/L Carbon Dioxide (22-30) mmol/L Anion Gap (10-20) BUN (7-17) mg/dL Creatinine (0.7-1.2) mg/dL Est GFR ( Amer) Est GFR (Non-Af Amer) POC Glucose (mg/dL) (65-110) mg/dL Random Glucose (65-105) mg/dL Lactic Acid (0.7-2.1) mmol/L Calcium (8.6-10.4) mg/dl Phosphorus (2.5-4.5) mg/dL Magnesium (1.6-2.3) mg/dL Total Bilirubin (0.2-1.3) mg/dL AST (14-36) U/L ALT (9-52) U/L Alkaline Phosphatase (38-126) U/L Ammonia (9-33) umol/L Total Protein (6.3-8.3) g/dL Albumin (3.5-5.0) g/dL Globulin (2.2-3.9) gm/dL Albumin/Globulin Ratio (1.0-2.1) Arterial Blood Potassium 3.9 (3.6-5.2) mmol/L Laboratory Results - last 24 hr 01/21/18 01/21/18 01/21/18 17:05 18:48 18:48 WBC 9.8 RBC 3.47 L Hgb 9.7 L Hct 30.2 L MCV 87.0 D MCH 28.0 MCHC 32.2 L RDW 16.9 H Plt Count 169 MPV 10.4 Neut % (Auto) 73.2 Lymph % (Auto) 8.0 L Owsley % (Auto) 15.0 H Eos % (Auto) 3.2 Baso % (Auto) 0.6 Neut # (Auto) 7.2 H Lymph # (Auto) 0.8 L [place]wsley # (Auto) 1.5 H Eos # (Auto) 0.3 Baso # (Auto) 0.1 Neutrophils % (Manual) 78 H Lymphocytes % (Manual) 10 L Monocytes % (Manual) 10 Eosinophils % (Manual) 2 Platelet Estimate Normal Poikilocytosis (manual Slight Anisocytosis (manual) Slight Ovalocytes Slight PT 15.1 H INR 1.3 APTT 33 Puncture Site Rra pCO2 45 pO2 310 H HCO3 29.4 H ABG pH 7.44 ABG Total CO2 32.0 H ABG O2 Saturation 99.6 H ABG Base Excess 5.6 H Bishop Test Pos ABG Potassium 3.9 A-a O2 Difference 347.0 Respiratory Index 1.1 Sodium 139.0 Chloride 104.0 Glucose 151 H Lactate 1.2 Vent Mode Mechanical Rate FiO2 100.0 Tidal Volume PEEP Potassium Carbon Dioxide Anion Gap BUN Creatinine Est GFR ( Amer) Est GFR (Non-Af Amer) POC Glucose (mg/dL) Random Glucose Lactic Acid Calcium Phosphorus Magnesium Total Bilirubin AST ALT Alkaline Phosphatase Ammonia Total Protein Albumin Globulin Albumin/Globulin Ratio Arterial Blood Potassium 3.9 01/21/18 01/21/18 01/21/18 18:48 18:48 20:50 WBC RBC Hgb Hct MCV MCH MCHC RDW Plt Count MPV Neut % (Auto) Lymph % (Auto) Owsley % (Auto) Eos % (Auto) Baso % (Auto) Neut # (Auto) Lymph # (Auto) Owsley # (Auto) Eos # (Auto) Baso # (Auto) Neutrophils % (Manual) Lymphocytes % (Manual) Monocytes % (Manual) Eosinophils % (Manual) Platelet Estimate Poikilocytosis (manual Anisocytosis (manual) Ovalocytes PT INR APTT Puncture Site pCO2 pO2 HCO3 ABG pH ABG Total CO2 ABG O2 Saturation ABG Base Excess Bishop Test ABG Potassium A-a O2 Difference Respiratory Index Sodium 142 Chloride 96 L Glucose Lactate Vent Mode Mechanical Rate FiO2 Tidal Volume PEEP Potassium 4.1 Carbon Dioxide 30 Anion Gap 20 BUN 30 H Creatinine 5.8 H Est GFR ( Amer) 10 Est GFR (Non-Af Amer) 8 POC Glucose (mg/dL) Random Glucose 119 H Lactic Acid 1.4 Calcium 8.6 Phosphorus Magnesium Total Bilirubin 1.9 H AST 37 H ALT 28 Alkaline Phosphatase 924 H Ammonia 77 H Total Protein 8.7 H Albumin 3.4 L Globulin 5.4 H Albumin/Globulin Ratio 0.6 L Arterial Blood Potassium 01/21/18 01/21/18 01/22/18 23:31 23:34 00:38 WBC RBC Hgb Hct MCV MCH MCHC RDW Plt Count MPV Neut % (Auto) Lymph % (Auto) Owsley % (Auto) Eos % (Auto) Baso % (Auto) Neut # (Auto) Lymph # (Auto) Owsley # (Auto) Eos # (Auto) Baso # (Auto) Neutrophils % (Manual) Lymphocytes % (Manual) Monocytes % (Manual) Eosinophils % (Manual) Platelet Estimate Poikilocytosis (manual Anisocytosis (manual) Ovalocytes PT INR APTT Puncture Site pCO2 pO2 HCO3 ABG pH ABG Total CO2 ABG O2 Saturation ABG Base Excess Bishop Test ABG Potassium A-a O2 Difference Respiratory Index Sodium Chloride Glucose Lactate Vent Mode Mechanical Rate FiO2 Tidal Volume PEEP Potassium Carbon Dioxide Anion Gap BUN Creatinine Est GFR ( Amer) Est GFR (Non-Af Amer) POC Glucose (mg/dL) 31 L* 34 L* 79 Random Glucose Lactic Acid Calcium Phosphorus Magnesium Total Bilirubin AST ALT Alkaline Phosphatase Ammonia Total Protein Albumin Globulin Albumin/Globulin Ratio Arterial Blood Potassium 01/22/18 01/22/18 01/22/18 04:30 05:12 05:14 WBC RBC Hgb Hct MCV MCH MCHC RDW Plt Count MPV Neut % (Auto) Lymph % (Auto) Owsley % (Auto) Eos % (Auto) Baso % (Auto) Neut # (Auto) Lymph # (Auto) Owsley # (Auto) Eos # (Auto) Baso # (Auto) Neutrophils % (Manual) Lymphocytes % (Manual) Monocytes % (Manual) Eosinophils % (Manual) Platelet Estimate Poikilocytosis (manual Anisocytosis (manual) Ovalocytes PT INR APTT Puncture Site Rr pCO2 36 pO2 79 L HCO3 32.3 H ABG pH 7.56 H ABG Total CO2 33.3 H ABG O2 Saturation 97.5 ABG Base Excess 9.5 H Bishop Test Pos ABG Potassium 3.3 L A-a O2 Difference 233.0 Respiratory Index 2.9 Sodium 139.0 Chloride 103.0 Glucose 70 Lactate 1.1 Vent Mode Prvc Mechanical Rate 16 FiO2 50.0 Tidal Volume 450 PEEP 5 Potassium Carbon Dioxide Anion Gap BUN Creatinine Est GFR ( Amer) Est GFR (Non-Af Amer) POC Glucose (mg/dL) 64 L 67 Random Glucose Lactic Acid Calcium Phosphorus Magnesium Total Bilirubin AST ALT Alkaline Phosphatase Ammonia Total Protein Albumin Globulin Albumin/Globulin Ratio Arterial Blood Potassium 3.3 L 0301/22/18 01/22/18 06:13 06:13 11:50 WBC 7.4 RBC 3.22 L Hgb 9.2 L Hct 28.0 L MCV 86.9 MCH 28.5 MCHC 32.8 L RDW 17.0 H Plt Count 145 MPV 11.0 Neut % (Auto) 53.8 Lymph % (Auto) 23.9 Owsley % (Auto) 16.6 H Eos % (Auto) 5.0 H Baso % (Auto) 0.7 Neut # (Auto) 4.0 Lymph # (Auto) 1.8 Owsley # (Auto) 1.2 H Eos # (Auto) 0.4 Baso # (Auto) 0.1 Neutrophils % (Manual) Lymphocytes % (Manual) Monocytes % (Manual) Eosinophils % (Manual) Platelet Estimate Poikilocytosis (manual Anisocytosis (manual) Ovalocytes PT INR APTT Puncture Site pCO2 pO2 HCO3 ABG pH ABG Total CO2 ABG O2 Saturation ABG Base Excess Bishop Test ABG Potassium A-a O2 Difference Respiratory Index Sodium 140 Chloride 96 L Glucose Lactate Vent Mode Mechanical Rate FiO2 Tidal Volume PEEP Potassium 3.5 L Carbon Dioxide 28 Anion Gap 19 BUN 33 H Creatinine 6.2 H Est GFR ( Amer) 9 Est GFR (Non-Af Amer) 7 POC Glucose (mg/dL) 75 Random Glucose 60 L Lactic Acid Calcium 8.2 L Phosphorus 4.6 H Magnesium 1.9 Total Bilirubin 1.3 AST 27 ALT 25 Alkaline Phosphatase 716 H D Ammonia Total Protein 7.4 Albumin 3.0 L Globulin 4.5 H Albumin/Globulin Ratio 0.7 L Arterial Blood Potassium Attending/Attestation - Attestation I have personally seen and examined this patient.: Yes I have fully participated in the care of the patient.: Yes I have reviewed all pertinent clinical information: Yes Notes (Text): 01/22/18 16:27 Patient seen and examined in the intensive care unit. Case discussed with house staff in the morning rounds. Patient is 42F with a history of COPD, ESRD on HD. Patient admitited with complaints of abdominal pain. Found to have acute graciela, later HIDA showed visualization of GB so surgery did not plan to intervene. Treated with abx. yesterday [facility] was called for respiratory distress, Patient was intubated and transferred to ICU. Status post thoracentesis 2.5 lit of straw-colored fluid removed. wean as tolerated Continue hemodialysis
--- NOTE | 2018-01-22 14:12 | US ---
PROCEDURE: Ultrasound of the right chest HISTORY: thoracentesis marking COMPARISON: Correlations made to chest radiograph performed earlier the same day TECHNIQUE: Focused real-time grayscale ultrasound of the right hemithorax FINDINGS: Large pleural effusion with right lower lobe atelectasis. IMPRESSION: Large right pleural effusion with right lower lobe atelectasis.
--- NOTE | 2018-01-22 16:20 | RAD ---
HISTORY: S/P TAP COMPARISON: Chest x-ray performed earlier the same day. TECHNIQUE: Chest, one view. FINDINGS: Endotracheal tube terminates approximately 3.1 cm above the purnima. Nasogastric tube extends expected location of the stomach, distal tip excluded from view. Right IJ approach central venous catheter extends the cavoatrial junction. Numerous external wires and leads obscure evaluation of the underlying parenchyma. LUNGS: Interval improvement in bilateral pleural effusions and consolidations with probable tiny right effusion and mild pulmonary venous congestion. No definite pneumothorax. Please note that chest x-ray has limited sensitivity for the detection of pulmonary masses. CARDIOVASCULAR: Heart size appears within normal limits. OSSEOUS STRUCTURES: No acute osseous abnormality identified. VISUALIZED UPPER ABDOMEN: Unremarkable. OTHER FINDINGS: None. IMPRESSION: Support lines and tubes as above. Interval improvement in bilateral pleural effusions and consolidations with probable tiny right effusion and mild pulmonary venous congestion.
[2018-01-22 16:55] LABS: BODY FLUID TYPE PLEURAL
--- NOTE | 2018-01-22 16:55 | PCM.PROC ---
Procedures Attestation:: I certify that I have explained the specified Operation(s) or Procedure(s), risks, benefits and reasonable alternatives to the Patient and/or other person responsible. The opportunity was given to ask questions and all questions answered - Paracentesis Consent Obtained: written consent Time Out Performed: Yes Indication: other (Straw colored pleural fluid) Procedure: therapeutic paracentesis, diagnostic paracentesis Local Anesthetic Used: lidocaine 1% (Thoracentesis of R. Pleural effusion, approx 2.5 L out. Tolerated well. Post procedure xray shows no pneumothorax and resolution of pleural effusion)
[2018-01-22 18:01] LABS: BF GROSS APPEARANCE SL CLOUDY (CLEAR); BODY FLUID MONO/MACROPHAGE 7 % (0-0)
[2018-01-23] MEDS: (Novolog) Insulin Aspart, Recombinant 100 u/ml 10 ml vial SC SCH ×4 (00:19→17:54)
[2018-01-23] MEDS: Albuterol-Ipratrop 3 mg / 0.5 (3 ml) UD INH SCH ×4 (01:12→19:32)
[2018-01-23] MEDS: Propofol 10 mg/ml 1,000 MG/100 ML VIAL IV PRN (03:30)
[2018-01-23 04:40] LABS: ABG ALLEN TEST POS; ARTERIAL BLOOD GAS HCO3 31.2 mmol/L (21-28); ARTERIAL BLOOD GAS O2 SAT 98.8 % (95-98); ARTERIAL BLOOD GAS PCO2 27 mm/Hg (35-45); ARTERIAL BLOOD GAS PH 7.63 (7.35-7.45); ARTERIAL BLOOD GAS PO2 197 mm/Hg (80-100); ARTERIAL BLOOD GAS TCO2 29.2 mmol/L (22-28)
[2018-01-23 06:51] LABS: BASO # 0.1 K/uL (0.0-0.2); BASO % 0.6 % (0.0-2.0); EOS # 0.4 K/uL (0.0-0.7); EOS % 4.6 % (0.0-4.0); HEMOGLOBIN 10.6 g/dL (11.0-16.0); LYMPH # 1.2 K/uL (1.0-4.3); LYMPH % 12.1 % (20.0-40.0); MEAN CELL VOLUME 86.8 fL (81.0-99.0); MEAN CORPUSCULAR HEMOGLOBIN 28.5 pg (27.0-31.0); MEAN CORPUSCULAR HGB CONC 32.8 g/dL (33.0-37.0); MEAN PLATELET VOLUME 10.9 fL (7.2-11.7); MONO # 1.5 K/uL (0.0-0.8); MONO % 15.3 % (0.0-10.0); NEUT # 6.5 K/uL (1.8-7.0); NEUT % 67.4 % (50.0-75.0); RBC 3.73 Mil/uL (3.80-5.20); RED CELL DISTRIBUTION WIDTH 16.9 % (11.5-14.5); WHITE BLOOD COUNT 9.7 K/uL (4.8-10.8)
[2018-01-23 07:00] LABS: ALB/GLOB RATIO 0.7 (1.0-2.1); ALBUMIN 3.1 g/dL (3.5-5.0)
--- NOTE | 2018-01-23 08:17 | RAD ---
Chest x-ray single frontal view History: Reexpansion pulmonary edema. Comparison: 01/22/2018 Findings: Moderate right and small left pleural effusion. Moderate venous congestion. Patchy increased markings at the right mid to lower lung zone and left lung base. Lines and tubes in stable position. Heart size within normal limits. Degenerative changes in the spine. Impression: Moderate right and small left pleural effusion. Moderate venous congestion. Patchy increased markings at the right mid to lower lung zone and left lung base. Lines and tubes in stable position.
[2018-01-23] MEDS ORDERED: Bisacodyl 5mg EC Tab PO ONE (08:38)
[2018-01-23] MEDS: (Lantus) Insulin Glargine, Recombinant SC SCH ×2 (09:55→22:04)
[2018-01-23] MEDS ORDERED: Metoprolol 1 mg/ml Inj IVP ONE (10:52)
--- NOTE | 2018-01-23 11:02 | CP.CCUPN ---
<Devante Kerr - Last Filed: 01/23/18 15:52> CCU Subjective - Physician Review Subjective (Free Text): 01/22/18 10:05 Patient seen and examined at bedside intubated, sedated Thoracentesis 2.5 L out started tube feeding today 01/23/18 10:56 Patient seen and examined at bedside extubated today tolerating well CCU Objective - Vital Signs / Intake & Output Vital Signs (Last 4 hours): Vital Signs Temp Pulse Resp BP Pulse Ox 01/23/18 08:04 105 H 21 148/88 100 01/23/18 08:00 99.2 F 110 H 21 100 01/23/18 07:04 114 H 23 167/101 H 100 01/23/18 07:00 111 H 20 100 Intake and Output (Last 8hrs): Intake & Output 01/22/18 01/23/18 01/23/18 22:59 06:59 14:59 Intake Total 396.3 502.0 94.2 Output Total 2500 0 0 Balance -2103.7 502.0 94.2 Weight 141 lb 1.533 oz Intake: IV 100 0 Intake, IV Amount 71.3 72.0 9.2 Right Internal Jugular 71.3 72.0 9.2 right medial port 0 Tube Feeding 265 330 85 Albumin 60 Output: Urine 0 0 0 Urine, Voided 0 0 0 Stool 0 Emesis 0 Other 2500 Other: # Bowel Movements 0 0 0 - Physical Exam Pupils: Positive for: PERRL Extroacular Muscles: Positive for: EOMI Conjunctiva: Positive for: Normal Mouth: Positive for: Moist Mucous Membranes Respiratory/Chest: Positive for: Clear to Auscultation Cardiovascular: Positive for: Regular Rate and Rhythm Abdomen: Positive for: Normal Bowel Sounds. Negative for: Tenderness, Distention, Peritoneal Signs Skin: Positive for: Warm, Dry Psychiatric: Positive for: Alert, Oriented x 3 - Medications Active Medications: Active Medications Generic Name Dose Route Start Last Admin Trade Name Freq PRN Reason Stop Dose Admin Albuterol/Ipratropium 3 ml 01/23/18 12:00 Duoneb 3 Mg/0.5 Mg (3 Ml) Ud INH RQ4 GUI Amlodipine Besylate 5 mg 01/18/18 15:45 01/23/18 09:54 Norvasc PO 5 mg DAILY GUI Administration Clonidine HCl 0.1 mg 01/18/18 18:00 01/23/18 09:54 Catapres PO 0.1 mg TID GUI Administration Heparin Sodium (Porcine) 5,000 units 01/18/18 22:00 01/23/18 09:55 Heparin SC 5,000 units Q12 GUI Administration Propofol 1,000 mg in 100 mls @ 2.1 mls/hr 01/21/18 17:27 01/23/18 07:00 Diprivan IV 22 mcg/kg/min .Q24H PRN 9.24 mls/hr TITRATE PER MD ORDER Titration Protocol 5 MCG/KG/MIN Insulin Aspart 0 unit 01/23/18 00:00 01/23/18 07:03 Novolog SC 2 unit Q6H GUI Administration Protocol Insulin Glargine 12 unit 01/19/18 21:00 01/23/18 09:55 Lantus SC 12 units Q12H GUI Administration Losartan Potassium 100 mg 01/18/18 16:00 01/23/18 09:54 Cozaar PO 100 mg DAILY GUI Administration Metoclopramide HCl 10 mg 01/22/18 10:37 Reglan IVP Q6 PRN Nausea/Vomiting Metoprolol Tartrate 50 mg 01/23/18 10:00 01/23/18 09:54 Lopressor PO 50 mg BID GUI Administration Metoprolol Tartrate 5 mg 01/23/18 10:52 Lopressor IVP 01/23/18 10:53 ONCE ONE Pantoprazole Sodium 40 mg 01/22/18 10:00 01/23/18 09:54 Protonix Inj IVP 40 mg DAILY GUI Administration Rosuvastatin Calcium 5 mg 01/20/18 22:00 01/22/18 21:26 Crestor PO 5 mg HS GUI Administration Spironolactone 50 mg 01/22/18 10:00 01/23/18 09:54 Aldactone PO 50 mg DAILY GUI Administration - Patient Studies Lab Studies: Microbiology Studies 01/22/18 Unknown Gram Stain - Final Pleural Fluid 01/21/18 18:15 MRSA Culture (Admit) - Final Nose MRSA NOT DETECTED 01/21/18 19:00 Blood Culture - Preliminary Blood NO GROWTH AFTER 24 HOURS 01/21/18 18:30 Blood Culture - Preliminary Blood NO GROWTH AFTER 24 HOURS Lab Studies 03/08/18 03/08/18 03/08/18 Range/Units 06:42 06:42 06:13 WBC 9.7 (4.8-10.8) K/uL RBC 3.73 L (3.80-5.20) Mil/uL Hgb 10.6 L (11.0-16.0) g/dL Hct 32.4 L (34.0-47.0) % MCV 86.8 (81.0-99.0) fL MCH 28.5 (27.0-31.0) pg MCHC 32.8 L (33.0-37.0) g/dL RDW 16.9 H (11.5-14.5) % Plt Count 188 (130-400) K/uL MPV 10.9 (7.2-11.7) fL Neut % (Auto) 67.4 (50.0-75.0) % Lymph % (Auto) 12.1 L (20.0-40.0) % Harper % (Auto) 15.3 H (0.0-10.0) % Eos % (Auto) 4.6 H (0.0-4.0) % Baso % (Auto) 0.6 (0.0-2.0) % Neut # (Auto) 6.5 (1.8-7.0) K/uL Lymph # (Auto) 1.2 (1.0-4.3) K/uL Harper # (Auto) 1.5 H (0.0-0.8) K/uL Eos # (Auto) 0.4 (0.0-0.7) K/uL Baso # (Auto) 0.1 (0.0-0.2) K/uL Puncture Site pCO2 (35-45) mm/Hg pO2 (80-100) mm/Hg HCO3 (21-28) mmol/L ABG pH (7.35-7.45) ABG Total CO2 (22-28) mmol/L ABG O2 Saturation (95-98) % ABG Base Excess (-2.0-3.0) mmol/L Bishop Test ABG Potassium (3.6-5.2) mmol/L A-a O2 Difference mm/Hg Respiratory Index Sodium 140 (132-148) mmol/l Chloride 96 L (98-107) mmol/L Glucose (65-105) mg/dl Lactate (0.7-2.1) mmol/L Vent Mode FiO2 % Pressure Support CPAP Crit Value Called To Crit Value Called By Crit Value Read Back Blood Gas Notified Time Potassium 4.3 (3.6-5.2) mmol/L Carbon Dioxide 28 (22-30) mmol/L Anion Gap 21 H (10-20) BUN 18 H (7-17) mg/dL Creatinine 4.1 H (0.7-1.2) mg/dL Est GFR ( Amer) 14 Est GFR (Non-Af Amer) 12 POC Glucose (mg/dL) 166 H (65-110) mg/dL Random Glucose 132 H (65-105) mg/dL Calcium 8.0 L (8.6-10.4) mg/dl Phosphorus 4.2 (2.5-4.5) mg/dL Magnesium 1.9 (1.6-2.3) mg/dL Total Bilirubin 1.3 (0.2-1.3) mg/dL AST 30 (14-36) U/L ALT 24 (9-52) U/L Alkaline Phosphatase 932 H D (38-126) U/L Total Protein 7.7 (6.3-8.3) g/dL Albumin 3.1 L (3.5-5.0) g/dL Globulin 4.6 H (2.2-3.9) gm/dL Albumin/Globulin Ratio 0.7 L (1.0-2.1) Arterial Blood Potassium (3.6-5.2) mmol/L Fluid Source Fluid Appearance (CLEAR) Fluid WBC (0.0-300.0) /mm3 Fluid RBC (0.0-0.0) /mm3 Fluid Tot Cell Count Fluid Neutrophils (0-0) % Fluid Lymphocytes (0-0) % Fld Monocyte/Macrophag (0-0) % Fluid Comment 01/23/18 01/22/18 01/22/18 Range/Units 04:35 23:55 17:35 WBC (4.8-10.8) K/uL RBC (3.80-5.20) Mil/uL Hgb (11.0-16.0) g/dL Hct (34.0-47.0) % MCV (81.0-99.0) fL MCH (27.0-31.0) pg MCHC (33.0-37.0) g/dL RDW (11.5-14.5) % Plt Count (130-400) K/uL MPV (7.2-11.7) fL Neut % (Auto) (50.0-75.0) % Lymph % (Auto) (20.0-40.0) % Harper % (Auto) (0.0-10.0) % Eos % (Auto) (0.0-4.0) % Baso % (Auto) (0.0-2.0) % Neut # (Auto) (1.8-7.0) K/uL Lymph # (Auto) (1.0-4.3) K/uL Harper # (Auto) (0.0-0.8) K/uL Eos # (Auto) (0.0-0.7) K/uL Baso # (Auto) (0.0-0.2) K/uL Puncture Site Rr pCO2 27 L (35-45) mm/Hg pO2 197 H (80-100) mm/Hg HCO3 31.2 H (21-28) mmol/L ABG pH 7.63 H* (7.35-7.45) ABG Total CO2 29.2 H (22-28) mmol/L ABG O2 Saturation 98.8 H (95-98) % ABG Base Excess 8.0 H (-2.0-3.0) mmol/L Bishop Test Pos ABG Potassium 3.6 (3.6-5.2) mmol/L A-a O2 Difference 126.0 mm/Hg Respiratory Index 0.6 Sodium 142.0 (132-148) mmol/l Chloride 108.0 H (98-107) mmol/L Glucose 121 H (65-105) mg/dl Lactate 0.9 (0.7-2.1) mmol/L Vent Mode Cpap FiO2 50.0 % Pressure Support 10 CPAP 5 Crit Value Called To Rosita díaz/rn Crit Value Called By Dejan stephen/rt Crit Value Read Back Y Blood Gas Notified Time 445 Potassium (3.6-5.2) mmol/L Carbon Dioxide (22-30) mmol/L Anion Gap (10-20) BUN (7-17) mg/dL Creatinine (0.7-1.2) mg/dL Est GFR ( Amer) Est GFR (Non-Af Amer) POC Glucose (mg/dL) 89 72 (65-110) mg/dL Random Glucose (65-105) mg/dL Calcium (8.6-10.4) mg/dl Phosphorus (2.5-4.5) mg/dL Magnesium (1.6-2.3) mg/dL Total Bilirubin (0.2-1.3) mg/dL AST (14-36) U/L ALT (9-52) U/L Alkaline Phosphatase (38-126) U/L Total Protein (6.3-8.3) g/dL Albumin (3.5-5.0) g/dL Globulin (2.2-3.9) gm/dL Albumin/Globulin Ratio (1.0-2.1) Arterial Blood Potassium 3.6 (3.6-5.2) mmol/L Fluid Source Fluid Appearance (CLEAR) Fluid WBC (0.0-300.0) /mm3 Fluid RBC (0.0-0.0) /mm3 Fluid Tot Cell Count Fluid Neutrophils (0-0) % Fluid Lymphocytes (0-0) % Fld Monocyte/Macrophag (0-0) % Fluid Comment 01/22/18 01/22/18 Range/Units 16:53 11:50 WBC (4.8-10.8) K/uL RBC (3.80-5.20) Mil/uL Hgb (11.0-16.0) g/dL Hct (34.0-47.0) % MCV (81.0-99.0) fL MCH (27.0-31.0) pg MCHC (33.0-37.0) g/dL RDW (11.5-14.5) % Plt Count (130-400) K/uL MPV (7.2-11.7) fL Neut % (Auto) (50.0-75.0) % Lymph % (Auto) (20.0-40.0) % Harper % (Auto) (0.0-10.0) % Eos % (Auto) (0.0-4.0) % Baso % (Auto) (0.0-2.0) % Neut # (Auto) (1.8-7.0) K/uL Lymph # (Auto) (1.0-4.3) K/uL Harper # (Auto) (0.0-0.8) K/uL Eos # (Auto) (0.0-0.7) K/uL Baso # (Auto) (0.0-0.2) K/uL Puncture Site pCO2 (35-45) mm/Hg pO2 (80-100) mm/Hg HCO3 (21-28) mmol/L ABG pH (7.35-7.45) ABG Total CO2 (22-28) mmol/L ABG O2 Saturation (95-98) % ABG Base Excess (-2.0-3.0) mmol/L Bishop Test ABG Potassium (3.6-5.2) mmol/L A-a O2 Difference mm/Hg Respiratory Index Sodium (132-148) mmol/l Chloride (98-107) mmol/L Glucose (65-105) mg/dl Lactate (0.7-2.1) mmol/L Vent Mode FiO2 % Pressure Support CPAP Crit Value Called To Crit Value Called By Crit Value Read Back Blood Gas Notified Time Potassium (3.6-5.2) mmol/L Carbon Dioxide (22-30) mmol/L Anion Gap (10-20) BUN (7-17) mg/dL Creatinine (0.7-1.2) mg/dL Est GFR ( Amer) Est GFR (Non-Af Amer) POC Glucose (mg/dL) 75 (65-110) mg/dL Random Glucose (65-105) mg/dL Calcium (8.6-10.4) mg/dl Phosphorus (2.5-4.5) mg/dL Magnesium (1.6-2.3) mg/dL Total Bilirubin (0.2-1.3) mg/dL AST (14-36) U/L ALT (9-52) U/L Alkaline Phosphatase (38-126) U/L Total Protein (6.3-8.3) g/dL Albumin (3.5-5.0) g/dL Globulin (2.2-3.9) gm/dL Albumin/Globulin Ratio (1.0-2.1) Arterial Blood Potassium (3.6-5.2) mmol/L Fluid Source Pleural Fluid Appearance Sl cloudy (CLEAR) Fluid WBC 207.0 (0.0-300.0) /mm3 Fluid RBC 2751.0 H (0.0-0.0) /mm3 Fluid Tot Cell Count TEST NOT PERFORMED Fluid Neutrophils 3.0 H (0-0) % Fluid Lymphocytes 90.0 H (0-0) % Fld Monocyte/Macrophag 7 H (0-0) % Fluid Comment Laboratory Results - last 24 hr 01/22/18 01/22/18 01/22/18 11:50 16:53 17:35 WBC RBC Hgb Hct MCV MCH MCHC RDW Plt Count MPV Neut % (Auto) Lymph % (Auto) Harper % (Auto) Eos % (Auto) Baso % (Auto) Neut # (Auto) Lymph # (Auto) Harper # (Auto) Eos # (Auto) Baso # (Auto) Puncture Site pCO2 pO2 HCO3 ABG pH ABG Total CO2 ABG O2 Saturation ABG Base Excess Bishop Test ABG Potassium A-a O2 Difference Respiratory Index Sodium Chloride Glucose Lactate Vent Mode FiO2 Pressure Support CPAP Crit Value Called To Crit Value Called By Crit Value Read Back Blood Gas Notified Time Potassium Carbon Dioxide Anion Gap BUN Creatinine Est GFR ( Amer) Est GFR (Non-Af Amer) POC Glucose (mg/dL) 75 72 Random Glucose Calcium Phosphorus Magnesium Total Bilirubin AST ALT Alkaline Phosphatase Total Protein Albumin Globulin Albumin/Globulin Ratio Arterial Blood Potassium Fluid Source Pleural Fluid Appearance Sl cloudy Fluid WBC 207.0 Fluid RBC 2751.0 H Fluid Tot Cell Count TEST NOT PERFORMED Fluid Neutrophils 3.0 H Fluid Lymphocytes 90.0 H Fld Monocyte/Macrophag 7 H Fluid Comment 01/22/18 01/23/18 01/23/18 23:55 04:35 06:13 WBC RBC Hgb Hct MCV MCH MCHC RDW Plt Count MPV Neut % (Auto) Lymph % (Auto) Harper % (Auto) Eos % (Auto) Baso % (Auto) Neut # (Auto) Lymph # (Auto) Harper # (Auto) Eos # (Auto) Baso # (Auto) Puncture Site Rr pCO2 27 L pO2 197 H HCO3 31.2 H ABG pH 7.63 H* ABG Total CO2 29.2 H ABG O2 Saturation 98.8 H ABG Base Excess 8.0 H Bishop Test Pos ABG Potassium 3.6 A-a O2 Difference 126.0 Respiratory Index 0.6 Sodium 142.0 Chloride 108.0 H Glucose 121 H Lactate 0.9 Vent Mode Cpap FiO2 50.0 Pressure Support 10 CPAP 5 Crit Value Called To Rosita díaz/rn Crit Value Called By Dejan stephen/rt Crit Value Read Back Y Blood Gas Notified Time 445 Potassium Carbon Dioxide Anion Gap BUN Creatinine Est GFR ( Amer) Est GFR (Non-Af Amer) POC Glucose (mg/dL) 89 166 H Random Glucose Calcium Phosphorus Magnesium Total Bilirubin AST ALT Alkaline Phosphatase Total Protein Albumin Globulin Albumin/Globulin Ratio Arterial Blood Potassium 3.6 Fluid Source Fluid Appearance Fluid WBC Fluid RBC Fluid Tot Cell Count Fluid Neutrophils Fluid Lymphocytes Fld Monocyte/Macrophag Fluid Comment 01/23/18 01/23/18 06:42 06:42 WBC 9.7 RBC 3.73 L Hgb 10.6 L Hct 32.4 L MCV 86.8 MCH 28.5 MCHC 32.8 L RDW 16.9 H Plt Count 188 MPV 10.9 Neut % (Auto) 67.4 Lymph % (Auto) 12.1 L Harper % (Auto) 15.3 H Eos % (Auto) 4.6 H Baso % (Auto) 0.6 Neut # (Auto) 6.5 Lymph # (Auto) 1.2 Harper # (Auto) 1.5 H Eos # (Auto) 0.4 Baso # (Auto) 0.1 Puncture Site pCO2 pO2 HCO3 ABG pH ABG Total CO2 ABG O2 Saturation ABG Base Excess Bishop Test ABG Potassium A-a O2 Difference Respiratory Index Sodium 140 Chloride 96 L Glucose Lactate Vent Mode FiO2 Pressure Support CPAP Crit Value Called To Crit Value Called By Crit Value Read Back Blood Gas Notified Time Potassium 4.3 Carbon Dioxide 28 Anion Gap 21 H BUN 18 H Creatinine 4.1 H Est GFR ( Amer) 14 Est GFR (Non-Af Amer) 12 POC Glucose (mg/dL) Random Glucose 132 H Calcium 8.0 L Phosphorus 4.2 Magnesium 1.9 Total Bilirubin 1.3 AST 30 ALT 24 Alkaline Phosphatase 932 H D Total Protein 7.7 Albumin 3.1 L Globulin 4.6 H Albumin/Globulin Ratio 0.7 L Arterial Blood Potassium Fluid Source Fluid Appearance Fluid WBC Fluid RBC Fluid Tot Cell Count Fluid Neutrophils Fluid Lymphocytes Fld Monocyte/Macrophag Fluid Comment Fingerstick Blood Sugar Results: 166 Assessment/Plan - Assessment and Plan (Free Text) Assessment: 42F Lg. R. Pleural effusion thoracentesis Plan: Neuro: No acute issues Cardio: History of HTN, no acute issues * amlodipine 5 PO QD * clonidine 0.1 PO TID * losartan 100 PO QD * Lopressor 5mg x1 Pulm: History of COPD. Intubated for airway protection during [employer] on 01/21. Extubated on 01/23 @ 1045. Large R. Pleural effusion s/p thoracentesis 2.5 L straw colored fluid removed. Of note patient has had pleural effusion drained 3x in the last month. Follow up fluid studies. ABG s/p extubation has improved. Will monitor overnight before transfer * duonebs Q4 GI: History of gastroparesis. Ascitis, Acute graciela was considered but HIDA is negative. MRCP showed stones and wall thickening but is likely reactive 2/2 to ascitis, No CBD dilation. No surgical intervention planned * Aldactone 50 PO QD * Nepro, F/U Dietary goal * Reglan 10 IV Q6 Renal: ESRD on HD MWF. L. AVF Endo: IDDM, accuchecks Q6 * ISS aspart * Glargine 12u SC Q12 * crestor 5 PO HS ID: Cultures negative so far. F/U repeat BC. Stopped abx as patient is afebrile , no white count and HIDA negative PPX: Heparin, Protonix 40 IV Q12 <Neelima Lay M - Last Filed: 01/23/18 17:24> CCU Subjective - Physician Review Critical Care Time Spent (in minutes): 35 CCU Objective - Vital Signs / Intake & Output Vital Signs (Last 4 hours): Vital Signs Temp Pulse Resp BP Pulse Ox 01/23/18 16:04 91 H 15 121/72 94 L 01/23/18 16:00 98.8 F 91 H 16 95 01/23/18 15:04 92 H 15 121/74 95 01/23/18 15:00 92 H 16 95 01/23/18 14:04 97 H 17 127/77 97 01/23/18 14:00 100 H 17 97 Intake and Output (Last 8hrs): Intake & Output 01/23/18 01/23/18 01/23/18 06:59 14:59 22:59 Intake Total 502.0 184.2 0 Output Total 0 0 0 Balance 502.0 184.2 0 Weight 141 lb 1.533 oz Intake: IV 100 0 Intake, IV Amount 72.0 9.2 0 Right Internal Jugular 72.0 9.2 0 Tube Feeding 330 175 0 Output: Urine 0 0 0 Urine, Voided 0 0 0 Emesis 0 0 Other: # Bowel Movements 0 0 0 - Medications Active Medications: Active Medications Generic Name Dose Route Start Last Admin Trade Name Freq PRN Reason Stop Dose Admin Albuterol/Ipratropium 3 ml 01/23/18 12:00 01/23/18 16:15 Duoneb 3 Mg/0.5 Mg (3 Ml) Ud INH 3 ml RQ4 GUI Administration Amlodipine Besylate 5 mg 01/18/18 15:45 01/23/18 09:54 Norvasc PO 5 mg DAILY GUI Administration Clonidine HCl 0.1 mg 01/18/18 18:00 01/23/18 14:00 Catapres PO Not Given TID GUI Heparin Sodium (Porcine) 5,000 units 01/18/18 22:00 01/23/18 09:55 Heparin SC 5,000 units Q12 GUI Administration Insulin Aspart 0 unit 01/23/18 00:00 01/23/18 12:00 Novolog SC Not Given Q6H [facility] Protocol Insulin Glargine 12 unit 01/19/18 21:00 01/23/18 09:55 Lantus SC 12 units Q12H GUI Administration Losartan Potassium 100 mg 01/18/18 16:00 01/23/18 09:54 Cozaar PO 100 mg DAILY GUI Administration Metoclopramide HCl 10 mg 01/22/18 10:37 Reglan IVP Q6 PRN Nausea/Vomiting Metoprolol Tartrate 50 mg 01/23/18 10:00 01/23/18 09:54 Lopressor PO 50 mg BID GUI Administration Pantoprazole Sodium 40 mg 01/22/18 10:00 01/23/18 09:54 Protonix Inj IVP 40 mg DAILY GUI Administration Rosuvastatin Calcium 5 mg 01/20/18 22:00 01/22/18 21:26 Crestor PO 5 mg HS GUI Administration Spironolactone 50 mg 01/22/18 10:00 01/23/18 09:54 Aldactone PO 50 mg DAILY GUI Administration - Patient Studies Lab Studies: Microbiology Studies 01/22/18 Unknown Gram Stain - Final Pleural Fluid Body Fluid Culture - Preliminary NO GROWTH AFTER 24 HOURS 01/21/18 18:15 MRSA Culture (Admit) - Final Nose MRSA NOT DETECTED 01/21/18 19:00 Blood Culture - Preliminary Blood NO GROWTH AFTER 24 HOURS 01/21/18 18:30 Blood Culture - Preliminary Blood NO GROWTH AFTER 24 HOURS Lab Studies 01/23/18 01/23/18 01/23/18 Range/Units 14:15 11:34 06:42 WBC (4.8-10.8) K/uL RBC (3.80-5.20) Mil/uL Hgb (11.0-16.0) g/dL Hct (34.0-47.0) % MCV (81.0-99.0) fL MCH (27.0-31.0) pg MCHC (33.0-37.0) g/dL RDW (11.5-14.5) % Plt Count (130-400) K/uL MPV (7.2-11.7) fL Neut % (Auto) (50.0-75.0) % Lymph % (Auto) (20.0-40.0) % Harper % (Auto) (0.0-10.0) % Eos % (Auto) (0.0-4.0) % Baso % (Auto) (0.0-2.0) % Neut # (Auto) (1.8-7.0) K/uL Lymph # (Auto) (1.0-4.3) K/uL Harper # (Auto) (0.0-0.8) K/uL Eos # (Auto) (0.0-0.7) K/uL Baso # (Auto) (0.0-0.2) K/uL Puncture Site Rb pCO2 39 (35-45) mm/Hg pO2 67 L (80-100) mm/Hg HCO3 30.1 H (21-28) mmol/L ABG pH 7.50 H (7.35-7.45) ABG Total CO2 31.6 H (22-28) mmol/L ABG O2 Saturation 95.2 (95-98) % ABG Base Excess 6.7 H (-2.0-3.0) mmol/L Bishop Test Na ABG Potassium 4.1 (3.6-5.2) mmol/L A-a O2 Difference 84.0 mm/Hg Respiratory Index 1.3 Sodium 141.0 140 (132-148) mmol/l Chloride 102.0 96 L (98-107) mmol/L Glucose 133 H (65-105) mg/dl Lactate 0.7 (0.7-2.1) mmol/L Vent Mode FiO2 28.0 % Pressure Support CPAP Crit Value Called To Dr donya lay Crit Value Called By [facility] Crit Value Read Back Y Blood Gas Notified Time 1430 Potassium 4.3 (3.6-5.2) mmol/L Carbon Dioxide 28 (22-30) mmol/L Anion Gap 21 H (10-20) BUN 18 H (7-17) mg/dL Creatinine 4.1 H (0.7-1.2) mg/dL Est GFR ( Amer) 14 Est GFR (Non-Af Amer) 12 POC Glucose (mg/dL) 120 H (65-110) mg/dL Random Glucose 132 H (65-105) mg/dL Calcium 8.0 L (8.6-10.4) mg/dl Phosphorus 4.2 (2.5-4.5) mg/dL Magnesium 1.9 (1.6-2.3) mg/dL Total Bilirubin 1.3 (0.2-1.3) mg/dL AST 30 (14-36) U/L ALT 24 (9-52) U/L Alkaline Phosphatase 932 H D (38-126) U/L Total Protein 7.7 (6.3-8.3) g/dL Albumin 3.1 L (3.5-5.0) g/dL Globulin 4.6 H (2.2-3.9) gm/dL Albumin/Globulin Ratio 0.7 L (1.0-2.1) Arterial Blood Potassium 4.1 (3.6-5.2) mmol/L Fluid Appearance (CLEAR) Fluid WBC (0.0-300.0) /mm3 Fluid RBC (0.0-0.0) /mm3 Fluid Tot Cell Count Fluid Neutrophils (0-0) % Fluid Lymphocytes (0-0) % Fld Monocyte/Macrophag (0-0) % Fluid Comment 01/23/18 01/23/18 01/23/18 Range/Units 06:42 06:13 04:35 WBC 9.7 (4.8-10.8) K/uL RBC 3.73 L (3.80-5.20) Mil/uL Hgb 10.6 L (11.0-16.0) g/dL Hct 32.4 L (34.0-47.0) % MCV 86.8 (81.0-99.0) fL MCH 28.5 (27.0-31.0) pg MCHC 32.8 L (33.0-37.0) g/dL RDW 16.9 H (11.5-14.5) % Plt Count 188 (130-400) K/uL MPV 10.9 (7.2-11.7) fL Neut % (Auto) 67.4 (50.0-75.0) % Lymph % (Auto) 12.1 L (20.0-40.0) % Harper % (Auto) 15.3 H (0.0-10.0) % Eos % (Auto) 4.6 H (0.0-4.0) % Baso % (Auto) 0.6 (0.0-2.0) % Neut # (Auto) 6.5 (1.8-7.0) K/uL Lymph # (Auto) 1.2 (1.0-4.3) K/uL Harper # (Auto) 1.5 H (0.0-0.8) K/uL Eos # (Auto) 0.4 (0.0-0.7) K/uL Baso # (Auto) 0.1 (0.0-0.2) K/uL Puncture Site Rr pCO2 27 L (35-45) mm/Hg pO2 197 H (80-100) mm/Hg HCO3 31.2 H (21-28) mmol/L ABG pH 7.63 H* (7.35-7.45) ABG Total CO2 29.2 H (22-28) mmol/L ABG O2 Saturation 98.8 H (95-98) % ABG Base Excess 8.0 H (-2.0-3.0) mmol/L Bishop Test Pos ABG Potassium 3.6 (3.6-5.2) mmol/L A-a O2 Difference 126.0 mm/Hg Respiratory Index 0.6 Sodium 142.0 (132-148) mmol/l Chloride 108.0 H (98-107) mmol/L Glucose 121 H (65-105) mg/dl Lactate 0.9 (0.7-2.1) mmol/L Vent Mode Cpap FiO2 50.0 % Pressure Support 10 CPAP 5 Crit Value Called To Rosita díaz/rn Crit Value Called By Dejan stephen/rt Crit Value Read Back Y Blood Gas Notified Time 445 Potassium (3.6-5.2) mmol/L Carbon Dioxide (22-30) mmol/L Anion Gap (10-20) BUN (7-17) mg/dL Creatinine (0.7-1.2) mg/dL Est GFR ( Amer) Est GFR (Non-Af Amer) POC Glucose (mg/dL) 166 H (65-110) mg/dL Random Glucose (65-105) mg/dL Calcium (8.6-10.4) mg/dl Phosphorus (2.5-4.5) mg/dL Magnesium (1.6-2.3) mg/dL Total Bilirubin (0.2-1.3) mg/dL AST (14-36) U/L ALT (9-52) U/L Alkaline Phosphatase (38-126) U/L Total Protein (6.3-8.3) g/dL Albumin (3.5-5.0) g/dL Globulin (2.2-3.9) gm/dL Albumin/Globulin Ratio (1.0-2.1) Arterial Blood Potassium 3.6 (3.6-5.2) mmol/L Fluid Appearance (CLEAR) Fluid WBC (0.0-300.0) /mm3 Fluid RBC (0.0-0.0) /mm3 Fluid Tot Cell Count Fluid Neutrophils (0-0) % Fluid Lymphocytes (0-0) % Fld Monocyte/Macrophag (0-0) % Fluid Comment 01/22/18 01/22/18 01/22/18 Range/Units 23:55 17:35 16:53 WBC (4.8-10.8) K/uL RBC (3.80-5.20) Mil/uL Hgb (11.0-16.0) g/dL Hct (34.0-47.0) % MCV (81.0-99.0) fL MCH (27.0-31.0) pg MCHC (33.0-37.0) g/dL RDW (11.5-14.5) % Plt Count (130-400) K/uL MPV (7.2-11.7) fL Neut % (Auto) (50.0-75.0) % Lymph % (Auto) (20.0-40.0) % Harper % (Auto) (0.0-10.0) % Eos % (Auto) (0.0-4.0) % Baso % (Auto) (0.0-2.0) % Neut # (Auto) (1.8-7.0) K/uL Lymph # (Auto) (1.0-4.3) K/uL Harper # (Auto) (0.0-0.8) K/uL Eos # (Auto) (0.0-0.7) K/uL Baso # (Auto) (0.0-0.2) K/uL Puncture Site pCO2 (35-45) mm/Hg pO2 (80-100) mm/Hg HCO3 (21-28) mmol/L ABG pH (7.35-7.45) ABG Total CO2 (22-28) mmol/L ABG O2 Saturation (95-98) % ABG Base Excess (-2.0-3.0) mmol/L Bishop Test ABG Potassium (3.6-5.2) mmol/L A-a O2 Difference mm/Hg Respiratory Index Sodium (132-148) mmol/l Chloride (98-107) mmol/L Glucose (65-105) mg/dl Lactate (0.7-2.1) mmol/L Vent Mode FiO2 % Pressure Support CPAP Crit Value Called To Crit Value Called By Crit Value Read Back Blood Gas Notified Time Potassium (3.6-5.2) mmol/L Carbon Dioxide (22-30) mmol/L Anion Gap (10-20) BUN (7-17) mg/dL Creatinine (0.7-1.2) mg/dL Est GFR ( Amer) Est GFR (Non-Af Amer) POC Glucose (mg/dL) 89 72 (65-110) mg/dL Random Glucose (65-105) mg/dL Calcium (8.6-10.4) mg/dl Phosphorus (2.5-4.5) mg/dL Magnesium (1.6-2.3) mg/dL Total Bilirubin (0.2-1.3) mg/dL AST (14-36) U/L ALT (9-52) U/L Alkaline Phosphatase (38-126) U/L Total Protein (6.3-8.3) g/dL Albumin (3.5-5.0) g/dL Globulin (2.2-3.9) gm/dL Albumin/Globulin Ratio (1.0-2.1) Arterial Blood Potassium (3.6-5.2) mmol/L Fluid Appearance Sl cloudy (CLEAR) Fluid WBC 207.0 (0.0-300.0) /mm3 Fluid RBC 2751.0 H (0.0-0.0) /mm3 Fluid Tot Cell Count TEST NOT PERFORMED Fluid Neutrophils 3.0 H (0-0) % Fluid Lymphocytes 90.0 H (0-0) % Fld Monocyte/Macrophag 7 H (0-0) % Fluid Comment Laboratory Results - last 24 hr 01/22/18 01/22/18 01/22/18 16:53 17:35 23:55 WBC RBC Hgb Hct MCV MCH MCHC RDW Plt Count MPV Neut % (Auto) Lymph % (Auto) Harper % (Auto) Eos % (Auto) Baso % (Auto) Neut # (Auto) Lymph # (Auto) Harper # (Auto) Eos # (Auto) Baso # (Auto) Puncture Site pCO2 pO2 HCO3 ABG pH ABG Total CO2 ABG O2 Saturation ABG Base Excess Bishop Test ABG Potassium A-a O2 Difference Respiratory Index Sodium Chloride Glucose Lactate Vent Mode FiO2 Pressure Support CPAP Crit Value Called To Crit Value Called By Crit Value Read Back Blood Gas Notified Time Potassium Carbon Dioxide Anion Gap BUN Creatinine Est GFR ( Amer) Est GFR (Non-Af Amer) POC Glucose (mg/dL) 72 89 Random Glucose Calcium Phosphorus Magnesium Total Bilirubin AST ALT Alkaline Phosphatase Total Protein Albumin Globulin Albumin/Globulin Ratio Arterial Blood Potassium Fluid Appearance Sl cloudy Fluid WBC 207.0 Fluid RBC 2751.0 H Fluid Tot Cell Count TEST NOT PERFORMED Fluid Neutrophils 3.0 H Fluid Lymphocytes 90.0 H Fld Monocyte/Macrophag 7 H Fluid Comment 01/23/18 01/23/18 01/23/18 04:35 06:13 06:42 WBC 9.7 RBC 3.73 L Hgb 10.6 L Hct 32.4 L MCV 86.8 MCH 28.5 MCHC 32.8 L RDW 16.9 H Plt Count 188 MPV 10.9 Neut % (Auto) 67.4 Lymph % (Auto) 12.1 L Harper % (Auto) 15.3 H Eos % (Auto) 4.6 H Baso % (Auto) 0.6 Neut # (Auto) 6.5 Lymph # (Auto) 1.2 Harper # (Auto) 1.5 H Eos # (Auto) 0.4 Baso # (Auto) 0.1 Puncture Site Rr pCO2 27 L pO2 197 H HCO3 31.2 H ABG pH 7.63 H* ABG Total CO2 29.2 H ABG O2 Saturation 98.8 H ABG Base Excess 8.0 H Bishop Test Pos ABG Potassium 3.6 A-a O2 Difference 126.0 Respiratory Index 0.6 Sodium 142.0 Chloride 108.0 H Glucose 121 H Lactate 0.9 Vent Mode Cpap FiO2 50.0 Pressure Support 10 CPAP 5 Crit Value Called To Rosita díaz/rn Crit Value Called By Dejan stephen/rt Crit Value Read Back Y Blood Gas Notified Time 445 Potassium Carbon Dioxide Anion Gap BUN Creatinine Est GFR ( Amer) Est GFR (Non-Af Amer) POC Glucose (mg/dL) 166 H Random Glucose Calcium Phosphorus Magnesium Total Bilirubin AST ALT Alkaline Phosphatase Total Protein Albumin Globulin Albumin/Globulin Ratio Arterial Blood Potassium 3.6 Fluid Appearance Fluid WBC Fluid RBC Fluid Tot Cell Count Fluid Neutrophils Fluid Lymphocytes Fld Monocyte/Macrophag Fluid Comment 01/23/18 01/23/18 01/23/18 06:42 11:34 14:15 WBC RBC Hgb Hct MCV MCH MCHC RDW Plt Count MPV Neut % (Auto) Lymph % (Auto) Harper % (Auto) Eos % (Auto) Baso % (Auto) Neut # (Auto) Lymph # (Auto) Harper # (Auto) Eos # (Auto) Baso # (Auto) Puncture Site Rb pCO2 39 pO2 67 L HCO3 30.1 H ABG pH 7.50 H ABG Total CO2 31.6 H ABG O2 Saturation 95.2 ABG Base Excess 6.7 H Bishop Test Na ABG Potassium 4.1 A-a O2 Difference 84.0 Respiratory Index 1.3 Sodium 140 141.0 Chloride 96 L 102.0 Glucose 133 H Lactate 0.7 Vent Mode FiO2 28.0 Pressure Support CPAP Crit Value Called To Dr donya lay Crit Value Called By [facility] Crit Value Read Back Y Blood Gas Notified Time 1430 Potassium 4.3 Carbon Dioxide 28 Anion Gap 21 H BUN 18 H Creatinine 4.1 H Est GFR ( Amer) 14 Est GFR (Non-Af Amer) 12 POC Glucose (mg/dL) 120 H Random Glucose 132 H Calcium 8.0 L Phosphorus 4.2 Magnesium 1.9 Total Bilirubin 1.3 AST 30 ALT 24 Alkaline Phosphatase 932 H D Total Protein 7.7 Albumin 3.1 L Globulin 4.6 H Albumin/Globulin Ratio 0.7 L Arterial Blood Potassium 4.1 Fluid Appearance Fluid WBC Fluid RBC Fluid Tot Cell Count Fluid Neutrophils Fluid Lymphocytes Fld Monocyte/Macrophag Fluid Comment Assessment/Plan - Assessment and Plan (Free Text) Plan: Above patient seen and examined at bedside. Patient intubated for airway protection. -Above resident note reviewed and verified. Patient s/p thoracentesis, and tolerating CPAP -Hypercapneic respiratory failure: continue cPAP, and extubated as weaning parameters good -COPD:continue duo nebs -ESRD on HD : HD as per renal -Start oral diet after speach and swallow -continue dvt/pud ppx cc time 35 minutes - Date & Time Date: 01/23/18 Time: 10:00
--- NOTE | 2018-01-23 12:26 | CP.PCM.PN ---
Subjective - Date & Time of Evaluation Date of Evaluation: 01/23/18 Time of Evaluation: 12:24 - Subjective Subjective: pt seen and examined intubated, awake on vent tolerating CPAP had H D yesterday no overnight events ROS- unable to obtain as intubated, non verbal Objective - Vital Signs/Intake and Output Vital Signs (last 24 hours): Temp Pulse Resp BP Pulse Ox 99.2 F 105 H 21 162/109 H 100 01/23/18 08:00 01/23/18 08:04 01/23/18 08:04 01/23/18 10:15 01/23/18 08:04 Intake and Output: 01/23/18 01/23/18 06:59 18:59 Intake Total 735.6 94.2 Output Total 0 0 Balance 735.6 94.2 - Medications Medications: Current Medications Albuterol/Ipratropium (Duoneb 3 Mg/0.5 Mg (3 Ml) Ud) 3 ml INH RQ4 [facility] Amlodipine Besylate (Norvasc) 5 mg PO DAILY [facility] Last Admin: 01/23/18 09:54 Dose: 5 mg Clonidine HCl (Catapres) 0.1 mg PO TID [facility] Last Admin: 01/23/18 09:54 Dose: 0.1 mg Heparin Sodium (Porcine) (Heparin) 5,000 units SC Q12 [facility] Last Admin: 01/23/18 09:55 Dose: 5,000 units Insulin Aspart (Novolog) 0 unit SC Q6H [facility] PRN Reason: Protocol Last Admin: 01/23/18 07:03 Dose: 2 unit Insulin Glargine (Lantus) 12 unit SC Q12H [facility] Last Admin: 01/23/18 09:55 Dose: 12 units Losartan Potassium (Cozaar) 100 mg PO DAILY [facility] Last Admin: 01/23/18 09:54 Dose: 100 mg Metoclopramide HCl (Reglan) 10 mg IVP Q6 PRN PRN Reason: Nausea/Vomiting Metoprolol Tartrate (Lopressor) 50 mg PO BID [facility] Last Admin: 01/23/18 09:54 Dose: 50 mg Pantoprazole Sodium (Protonix Inj) 40 mg IVP DAILY [facility] Last Admin: 01/23/18 09:54 Dose: 40 mg Rosuvastatin Calcium (Crestor) 5 mg PO HS [facility] Last Admin: 01/22/18 21:26 Dose: 5 mg Spironolactone (Aldactone) 50 mg PO DAILY [facility] Last Admin: 01/23/18 09:54 Dose: 50 mg - Labs Labs: 01/23/18 06:42 01/23/18 06:42 PT 15.1 SECONDS (9.7-12.2) H 01/21/18 18:48 INR 1.3 01/21/18 18:48 APTT 33 SECONDS (21-34) 01/21/18 18:48 - Constitutional Appears: Non-toxic, Older Than Stated Age - Head Exam Head Exam: ATRAUMATIC, NORMOCEPHALIC - Eye Exam Eye Exam: EOMI, PERRL - ENT Exam Additional comments: et tube in place - Respiratory Exam Respiratory Exam: Clear to Ausculation Bilateral. absent: Rhonchi, Wheezes - Cardiovascular Exam Cardiovascular Exam: REGULAR RHYTHM, +S1, +S2 - GI/Abdominal Exam GI & Abdominal Exam: Soft. absent: Tenderness - Extremities Exam Extremities Exam: absent: Joint Swelling, Pedal Edema - Neurological Exam Neurological Exam: Alert, Awake - Skin Skin Exam: Normal Color, Warm Assessment and Plan (1) Anemia Status: Acute (2) CHF (congestive heart failure) Status: Acute (3) ESRD (end stage renal disease) on dialysis Status: Acute (4) Uncontrolled diabetes mellitus Status: Acute (5) Hypertension Status: Chronic - Assessment and Plan (Free Text) Plan: maintian HD MWF next HD in am monitor BP- on multiple meds discussed with icu team- plan for extubation today
[2018-01-23 14:23] LABS: ARTERIAL BLOOD GAS HCO3 30.1 mmol/L (21-28); ARTERIAL BLOOD GAS O2 SAT 95.2 % (95-98); ARTERIAL BLOOD GAS PCO2 39 mm/Hg (35-45); ARTERIAL BLOOD GAS PO2 67 mm/Hg (80-100); ARTERIAL BLOOD GAS TCO2 31.6 mmol/L (22-28)
--- NOTE | 2018-01-23 16:59 | CP.PCM.PN ---
Subjective - Date & Time of Evaluation Date of Evaluation: 01/23/18 Time of Evaluation: 07:00 - Subjective Subjective: seen in ICU 42 yo female with Hx of ESRD was admitted with abd pain and suspicion of cholecystitis Cholecystitis eventually ruled out Hosp course complicated by resp failure secondary to large right effusion patient iss stable s/p thoracentesis and extubation all cultures so far negative Objective - Vital Signs/Intake and Output Vital Signs (last 24 hours): Temp Pulse Resp BP Pulse Ox 98.8 F 91 H 15 121/72 94 L 01/23/18 16:00 01/23/18 16:04 01/23/18 16:04 01/23/18 16:04 01/23/18 16:04 Intake and Output: 01/23/18 01/23/18 06:59 18:59 Intake Total 735.6 184.2 Output Total 0 0 Balance 735.6 184.2 - Medications Medications: Current Medications Albuterol/Ipratropium (Duoneb 3 Mg/0.5 Mg (3 Ml) Ud) 3 ml INH RQ4 [facility] Last Admin: 01/23/18 16:15 Dose: 3 ml Amlodipine Besylate (Norvasc) 5 mg PO DAILY [facility] Last Admin: 01/23/18 09:54 Dose: 5 mg Clonidine HCl (Catapres) 0.1 mg PO TID [facility] Last Admin: 01/23/18 14:00 Dose: Not Given Heparin Sodium (Porcine) (Heparin) 5,000 units SC Q12 [facility] Last Admin: 01/23/18 09:55 Dose: 5,000 units Insulin Aspart (Novolog) 0 unit SC Q6H [facility] PRN Reason: Protocol Last Admin: 01/23/18 12:00 Dose: Not Given Insulin Glargine (Lantus) 12 unit SC Q12H [facility] Last Admin: 01/23/18 09:55 Dose: 12 units Losartan Potassium (Cozaar) 100 mg PO DAILY [facility] Last Admin: 01/23/18 09:54 Dose: 100 mg Metoclopramide HCl (Reglan) 10 mg IVP Q6 PRN PRN Reason: Nausea/Vomiting Metoprolol Tartrate (Lopressor) 50 mg PO BID [facility] Last Admin: 01/23/18 09:54 Dose: 50 mg Pantoprazole Sodium (Protonix Inj) 40 mg IVP DAILY [facility] Last Admin: 01/23/18 09:54 Dose: 40 mg Rosuvastatin Calcium (Crestor) 5 mg PO HS [facility] Last Admin: 01/22/18 21:26 Dose: 5 mg Spironolactone (Aldactone) 50 mg PO DAILY [facility] Last Admin: 01/23/18 09:54 Dose: 50 mg - Labs Labs: 01/23/18 06:42 01/23/18 06:42 PT 15.1 SECONDS (9.7-12.2) H 01/21/18 18:48 INR 1.3 01/21/18 18:48 APTT 33 SECONDS (21-34) 01/21/18 18:48 - Constitutional Appears: Non-toxic, Chronically Ill - Head Exam Head Exam: NORMOCEPHALIC - Eye Exam Eye Exam: absent: Scleral icterus - ENT Exam ENT Exam: Mucous Membranes Dry - Neck Exam Neck Exam: absent: Lymphadenopathy - Respiratory Exam Respiratory Exam: Decreased Breath Sounds, Clear to Ausculation Bilateral, Prolonged Expiratory Phase - Cardiovascular Exam Cardiovascular Exam: REGULAR RHYTHM, +S1, +S2 - GI/Abdominal Exam GI & Abdominal Exam: Distended, Soft. absent: Tenderness - Rectal Exam Rectal Exam: Deferred - Exam Exam: NORMAL INSPECTION - Extremities Exam Extremities Exam: Pedal Edema - Back Exam Back Exam: absent: CVA tenderness (L), CVA tenderness (R) - Neurological Exam Neurological Exam: Alert, Awake, Oriented x3 Neuro motor strength exam: Left Upper Extremity: 3, Right Upper Extremity: 3, Left Lower Extremity: 3, Right Lower Extremity: 3 - Psychiatric Exam Psychiatric exam: Depressed - Skin Skin Exam: Dry Assessment and Plan (1) Cholecystitis Status: Ruled-out (2) Abdominal pain Status: Acute (3) Hyperglycemia Status: Acute (4) JOSE MIGUEL (acute kidney injury) Status: Acute (5) Controlled type 2 diabetes mellitus with diabetic nephropathy Status: Acute (6) Diabetes mellitus with ESRD (end-stage renal disease) Status: Acute (7) Diabetes mellitus with chronic kidney disease Status: Acute (8) Diabetic nephropathy Status: Acute (9) ESRD (end stage renal disease) on dialysis Status: Acute (10) Intractable vomiting Status: Acute (11) CHF exacerbation Status: Acute (12) CHF (congestive heart failure) Status: Acute (13) Volume overload Status: Acute (14) Volume overload Status: Acute - Assessment and Plan (Free Text) Assessment: 42 yo female with Hx of ESRD was admitted with abd pain and suspicion of cholecystitis Cholecystitis eventually ruled out Hosp course complicated by resp failure secondary to large right effusion patient iss stable s/p thoracentesis and extubation all cultures so far negative off antibiotics for now await cultures from pleural fluid
--- NOTE | 2018-01-23 18:32 | CARD ---
APPROVED REPORT EKG Measurement Heart [id number] <Conclusion> Sinus tachycardia Possible Left atrial enlargement Left posterior fascicular block Nonspecific ST and T wave abnormality Abnormal ECG
[2018-01-24] MEDS: (Novolog) Insulin Aspart, Recombinant 100 u/ml 10 ml vial SC SCH ×4 (00:10→18:27)
[2018-01-24] MEDS: Albuterol-Ipratrop 3 mg / 0.5 (3 ml) UD INH SCH ×7 (00:22→23:53)
[2018-01-24 06:25] LABS: BASO # 0.1 K/uL (0.0-0.2); BASO % 1.1 % (0.0-2.0); EOS # 0.5 K/uL (0.0-0.7); LYMPH # 1.6 K/uL (1.0-4.3); LYMPH % 20.4 % (20.0-40.0); MEAN CELL VOLUME 87.4 fL (81.0-99.0); MEAN CORPUSCULAR HEMOGLOBIN 28.7 pg (27.0-31.0); MEAN CORPUSCULAR HGB CONC 32.8 g/dL (33.0-37.0); MEAN PLATELET VOLUME 10.4 fL (7.2-11.7); MONO # 1.5 K/uL (0.0-0.8); MONO % 19.6 % (0.0-10.0); NEUT # 4.1 K/uL (1.8-7.0); NEUT % 52.9 % (50.0-75.0); RBC 3.47 Mil/uL (3.80-5.20); RED CELL DISTRIBUTION WIDTH 16.2 % (11.5-14.5); WHITE BLOOD COUNT 7.8 K/uL (4.8-10.8)
[2018-01-24 06:39] LABS: ALB/GLOB RATIO 0.6 (1.0-2.1); ALBUMIN 3.1 g/dL (3.5-5.0); CALCIUM 8.3 mg/dl (8.6-10.4)
[2018-01-24 06:42] LABS: INR 1.2; PROTHROMBIN TIME 13.7 SECONDS (9.7-12.2)
--- NOTE | 2018-01-24 08:07 | RAD ---
Chest x-ray single frontal view History: Pleural effusion. Comparison: 01/23/2018 Findings Interval removal of an endotracheal and NG tube. Right-sided venous catheter extends into the cavoatrial junction. Worsening now large loculated right and moderate left pleural effusion. Worsening prominent airspace consolidative changes in the right mid to lower lung zone as well as the left lung base. Cardiomegaly. Degenerative changes in the spine. Impression: Worsening airspace opacification and effusions as described above.
[2018-01-24] MEDS ORDERED: Albumin Human 25% (12.5 gm/50 ml) IV ONE (09:27)
[2018-01-24] MEDS: (Lantus) Insulin Glargine, Recombinant SC SCH ×2 (11:16→22:07)
--- NOTE | 2018-01-24 11:21 | CP.CCUPN ---
<Devante Kerr - Last Filed: 01/24/18 11:13> CCU Subjective - Physician Review Subjective (Free Text): 01/22/18 10:05 Patient seen and examined at bedside intubated, sedated Thoracentesis 2.5 L out started tube feeding today 01/23/18 10:56 Patient seen and examined at bedside extubated today tolerating well 01/24/18 11:13 Patient extubated Large pleural effusion has recurred Dialysis today, removing 2.5L Paracentesis today abdominal US today CCU Objective - Vital Signs / Intake & Output Vital Signs (Last 4 hours): Vital Signs Temp Pulse Resp BP BP 01/24/18 10:45 157/89 H 01/24/18 10:30 151/88 H 01/24/18 10:15 147/92 H 01/24/18 10:00 136/85 01/24/18 09:55 98.7 F 98 H 15 131/74 Intake and Output (Last 8hrs): Intake & Output 01/23/18 01/24/18 01/24/18 22:59 06:59 14:59 Intake Total 0 0 0 Output Total 0 0 0 Balance 0 0 0 Weight 140 lb 6.951 oz Intake: Intake, IV Amount 0 0 0 Right Internal Jugular 0 0 0 Tube Feeding 0 0 0 Output: Urine 0 0 0 Urine, Voided 0 0 0 Emesis 0 0 0 Other: # Bowel Movements 0 0 0 - Physical Exam Pupils: Positive for: PERRL Extroacular Muscles: Positive for: EOMI Conjunctiva: Positive for: Normal Mouth: Positive for: Moist Mucous Membranes Respiratory/Chest: Positive for: Clear to Auscultation Cardiovascular: Positive for: Regular Rate and Rhythm Abdomen: Positive for: Normal Bowel Sounds. Negative for: Tenderness, Distention, Peritoneal Signs Skin: Positive for: Warm, Dry Psychiatric: Positive for: Alert, Oriented x 3 - Medications Active Medications: Active Medications Generic Name Dose Route Start Last Admin Trade Name Freq PRN Reason Stop Dose Admin Albuterol/Ipratropium 3 ml 01/23/18 12:00 01/24/18 08:04 Duoneb 3 Mg/0.5 Mg (3 Ml) Ud INH 3 ml RQ4 GUI Administration Amlodipine Besylate 5 mg 01/18/18 15:45 01/23/18 09:54 Norvasc PO 5 mg DAILY GUI Administration Clonidine HCl 0.1 mg 01/18/18 18:00 01/23/18 17:53 Catapres PO 0.1 mg TID [facility] Administration Heparin Sodium (Porcine) 5,000 units 01/18/18 22:00 01/23/18 22:15 Heparin SC 5,000 units Q12 GUI Administration Insulin Aspart 0 unit 01/23/18 00:00 01/24/18 06:03 Novolog SC Not Given Q6H [facility] Protocol Insulin Glargine 12 unit 01/19/18 21:00 01/23/18 22:04 Lantus SC Not Given Q12H [facility] Losartan Potassium 100 mg 01/18/18 16:00 01/23/18 09:54 Cozaar PO 100 mg DAILY [facility] Administration Metoclopramide HCl 10 mg 01/22/18 10:37 Reglan IVP Q6 PRN Nausea/Vomiting Metoprolol Tartrate 50 mg 01/23/18 10:00 01/23/18 17:53 Lopressor PO 50 mg BID [facility] Administration Pantoprazole Sodium 40 mg 01/22/18 10:00 01/23/18 09:54 Protonix Inj IVP 40 mg DAILY [facility] Administration Rosuvastatin Calcium 5 mg 01/20/18 22:00 01/23/18 22:04 Crestor PO Not Given HS [facility] Spironolactone 50 mg 01/22/18 10:00 01/23/18 09:54 Aldactone PO 50 mg DAILY [facility] Administration - Patient Studies Lab Studies: Microbiology Studies 01/21/18 19:00 Blood Culture - Preliminary Blood NO GROWTH AFTER 48 HOURS 01/21/18 18:30 Blood Culture - Preliminary Blood NO GROWTH AFTER 48 HOURS 01/22/18 Unknown Gram Stain - Final Pleural Fluid Body Fluid Culture - Preliminary NO GROWTH AFTER 24 HOURS Lab Studies 01/24/18 01/24/18 01/24/18 Range/Units 06:20 06:20 06:19 WBC 7.8 (4.8-10.8) K/uL RBC 3.47 L (3.80-5.20) Mil/uL Hgb 10.0 L (11.0-16.0) g/dL Hct 30.4 L (34.0-47.0) % MCV 87.4 (81.0-99.0) fL MCH 28.7 (27.0-31.0) pg MCHC 32.8 L (33.0-37.0) g/dL RDW 16.2 H (11.5-14.5) % Plt Count 209 (130-400) K/uL MPV 10.4 (7.2-11.7) fL Neut % (Auto) 52.9 (50.0-75.0) % Lymph % (Auto) 20.4 (20.0-40.0) % Swift % (Auto) 19.6 H (0.0-10.0) % Eos % (Auto) 6.0 H (0.0-4.0) % Baso % (Auto) 1.1 (0.0-2.0) % Neut # (Auto) 4.1 (1.8-7.0) K/uL Lymph # (Auto) 1.6 (1.0-4.3) K/uL Swift # (Auto) 1.5 H (0.0-0.8) K/uL Eos # (Auto) 0.5 (0.0-0.7) K/uL Baso # (Auto) 0.1 (0.0-0.2) K/uL PT 13.7 H (9.7-12.2) SECONDS INR 1.2 APTT 35 H (21-34) SECONDS Puncture Site pCO2 (35-45) mm/Hg pO2 (80-100) mm/Hg HCO3 (21-28) mmol/L ABG pH (7.35-7.45) ABG Total CO2 (22-28) mmol/L ABG O2 Saturation (95-98) % ABG Base Excess (-2.0-3.0) mmol/L Bishop Test ABG Potassium (3.6-5.2) mmol/L A-a O2 Difference mm/Hg Respiratory Index Sodium 140 (132-148) mmol/l Chloride 94 L (98-107) mmol/L Glucose (65-105) mg/dl Lactate (0.7-2.1) mmol/L FiO2 % Crit Value Called To Crit Value Called By Crit Value Read Back Blood Gas Notified Time Potassium 4.4 (3.6-5.2) mmol/L Carbon Dioxide 29 (22-30) mmol/L Anion Gap 22 H (10-20) BUN 27 H (7-17) mg/dL Creatinine 6.0 H (0.7-1.2) mg/dL Est GFR ( Amer) 9 Est GFR (Non-Af Amer) 8 POC Glucose (mg/dL) (65-110) mg/dL Random Glucose 125 H (65-105) mg/dL Calcium 8.3 L (8.6-10.4) mg/dl Phosphorus 6.6 H (2.5-4.5) mg/dL Magnesium 2.1 (1.6-2.3) mg/dL Total Bilirubin 1.6 H (0.2-1.3) mg/dL AST 32 (14-36) U/L ALT 19 (9-52) U/L Alkaline Phosphatase 830 H (38-126) U/L Total Protein 8.2 (6.3-8.3) g/dL Albumin 3.1 L (3.5-5.0) g/dL Globulin 5.1 H (2.2-3.9) gm/dL Albumin/Globulin Ratio 0.6 L (1.0-2.1) Arterial Blood Potassium (3.6-5.2) mmol/L 01/24/18 01/24/18 01/23/18 Range/Units 05:47 00:06 17:39 WBC (4.8-10.8) K/uL RBC (3.80-5.20) Mil/uL Hgb (11.0-16.0) g/dL Hct (34.0-47.0) % MCV (81.0-99.0) fL MCH (27.0-31.0) pg MCHC (33.0-37.0) g/dL RDW (11.5-14.5) % Plt Count (130-400) K/uL MPV (7.2-11.7) fL Neut % (Auto) (50.0-75.0) % Lymph % (Auto) (20.0-40.0) % Swift % (Auto) (0.0-10.0) % Eos % (Auto) (0.0-4.0) % Baso % (Auto) (0.0-2.0) % Neut # (Auto) (1.8-7.0) K/uL Lymph # (Auto) (1.0-4.3) K/uL Swift # (Auto) (0.0-0.8) K/uL Eos # (Auto) (0.0-0.7) K/uL Baso # (Auto) (0.0-0.2) K/uL PT (9.7-12.2) SECONDS INR APTT (21-34) SECONDS Puncture Site pCO2 (35-45) mm/Hg pO2 (80-100) mm/Hg HCO3 (21-28) mmol/L ABG pH (7.35-7.45) ABG Total CO2 (22-28) mmol/L ABG O2 Saturation (95-98) % ABG Base Excess (-2.0-3.0) mmol/L Bishop Test ABG Potassium (3.6-5.2) mmol/L A-a O2 Difference mm/Hg Respiratory Index Sodium (132-148) mmol/l Chloride (98-107) mmol/L Glucose (65-105) mg/dl Lactate (0.7-2.1) mmol/L FiO2 % Crit Value Called To Crit Value Called By Crit Value Read Back Blood Gas Notified Time Potassium (3.6-5.2) mmol/L Carbon Dioxide (22-30) mmol/L Anion Gap (10-20) BUN (7-17) mg/dL Creatinine (0.7-1.2) mg/dL Est GFR ( Amer) Est GFR (Non-Af Amer) POC Glucose (mg/dL) 105 123 H 127 H (65-110) mg/dL Random Glucose (65-105) mg/dL Calcium (8.6-10.4) mg/dl Phosphorus (2.5-4.5) mg/dL Magnesium (1.6-2.3) mg/dL Total Bilirubin (0.2-1.3) mg/dL AST (14-36) U/L ALT (9-52) U/L Alkaline Phosphatase (38-126) U/L Total Protein (6.3-8.3) g/dL Albumin (3.5-5.0) g/dL Globulin (2.2-3.9) gm/dL Albumin/Globulin Ratio (1.0-2.1) Arterial Blood Potassium (3.6-5.2) mmol/L 01/23/18 01/23/18 Range/Units 14:15 11:34 WBC (4.8-10.8) K/uL RBC (3.80-5.20) Mil/uL Hgb (11.0-16.0) g/dL Hct (34.0-47.0) % MCV (81.0-99.0) fL MCH (27.0-31.0) pg MCHC (33.0-37.0) g/dL RDW (11.5-14.5) % Plt Count (130-400) K/uL MPV (7.2-11.7) fL Neut % (Auto) (50.0-75.0) % Lymph % (Auto) (20.0-40.0) % Swift % (Auto) (0.0-10.0) % Eos % (Auto) (0.0-4.0) % Baso % (Auto) (0.0-2.0) % Neut # (Auto) (1.8-7.0) K/uL Lymph # (Auto) (1.0-4.3) K/uL Swift # (Auto) (0.0-0.8) K/uL Eos # (Auto) (0.0-0.7) K/uL Baso # (Auto) (0.0-0.2) K/uL PT (9.7-12.2) SECONDS INR APTT (21-34) SECONDS Puncture Site Rb pCO2 39 (35-45) mm/Hg pO2 67 L (80-100) mm/Hg HCO3 30.1 H (21-28) mmol/L ABG pH 7.50 H (7.35-7.45) ABG Total CO2 31.6 H (22-28) mmol/L ABG O2 Saturation 95.2 (95-98) % ABG Base Excess 6.7 H (-2.0-3.0) mmol/L Bishop Test Na ABG Potassium 4.1 (3.6-5.2) mmol/L A-a O2 Difference 84.0 mm/Hg Respiratory Index 1.3 Sodium 141.0 (132-148) mmol/l Chloride 102.0 (98-107) mmol/L Glucose 133 H (65-105) mg/dl Lactate 0.7 (0.7-2.1) mmol/L FiO2 28.0 % Crit Value Called To Dr donya lay Crit Value Called By Kingsley rincon rcp Crit Value Read Back Y Blood Gas Notified Time 1430 Potassium (3.6-5.2) mmol/L Carbon Dioxide (22-30) mmol/L Anion Gap (10-20) BUN (7-17) mg/dL Creatinine (0.7-1.2) mg/dL Est GFR ( Amer) Est GFR (Non-Af Amer) POC Glucose (mg/dL) 120 H (65-110) mg/dL Random Glucose (65-105) mg/dL Calcium (8.6-10.4) mg/dl Phosphorus (2.5-4.5) mg/dL Magnesium (1.6-2.3) mg/dL Total Bilirubin (0.2-1.3) mg/dL AST (14-36) U/L ALT (9-52) U/L Alkaline Phosphatase (38-126) U/L Total Protein (6.3-8.3) g/dL Albumin (3.5-5.0) g/dL Globulin (2.2-3.9) gm/dL Albumin/Globulin Ratio (1.0-2.1) Arterial Blood Potassium 4.1 (3.6-5.2) mmol/L Laboratory Results - last 24 hr 01/23/18 01/23/18 01/23/18 11:34 14:15 17:39 WBC RBC Hgb Hct MCV MCH MCHC RDW Plt Count MPV Neut % (Auto) Lymph % (Auto) Swift % (Auto) Eos % (Auto) Baso % (Auto) Neut # (Auto) Lymph # (Auto) Swift # (Auto) Eos # (Auto) Baso # (Auto) PT INR APTT Puncture Site Rb pCO2 39 pO2 67 L HCO3 30.1 H ABG pH 7.50 H ABG Total CO2 31.6 H ABG O2 Saturation 95.2 ABG Base Excess 6.7 H Bishop Test Na ABG Potassium 4.1 A-a O2 Difference 84.0 Respiratory Index 1.3 Sodium 141.0 Chloride 102.0 Glucose 133 H Lactate 0.7 FiO2 28.0 Crit Value Called To Dr donya lay Crit Value Called By Kingsley mckenzie materials tech Crit Value Read Back Y Blood Gas Notified Time 1430 Potassium Carbon Dioxide Anion Gap BUN Creatinine Est GFR ( Amer) Est GFR (Non-Af Amer) POC Glucose (mg/dL) 120 H 127 H Random Glucose Calcium Phosphorus Magnesium Total Bilirubin AST ALT Alkaline Phosphatase Total Protein Albumin Globulin Albumin/Globulin Ratio Arterial Blood Potassium 4.1 01/24/18 01/24/18 01/24/18 00:06 05:47 06:19 WBC 7.8 RBC 3.47 L Hgb 10.0 L Hct 30.4 L MCV 87.4 MCH 28.7 MCHC 32.8 L RDW 16.2 H Plt Count 209 MPV 10.4 Neut % (Auto) 52.9 Lymph % (Auto) 20.4 Swift % (Auto) 19.6 H Eos % (Auto) 6.0 H Baso % (Auto) 1.1 Neut # (Auto) 4.1 Lymph # (Auto) 1.6 Swift # (Auto) 1.5 H Eos # (Auto) 0.5 Baso # (Auto) 0.1 PT INR APTT Puncture Site pCO2 pO2 HCO3 ABG pH ABG Total CO2 ABG O2 Saturation ABG Base Excess Bishop Test ABG Potassium A-a O2 Difference Respiratory Index Sodium Chloride Glucose Lactate FiO2 Crit Value Called To Crit Value Called By Crit Value Read Back Blood Gas Notified Time Potassium Carbon Dioxide Anion Gap BUN Creatinine Est GFR ( Amer) Est GFR (Non-Af Amer) POC Glucose (mg/dL) 123 H 105 Random Glucose Calcium Phosphorus Magnesium Total Bilirubin AST ALT Alkaline Phosphatase Total Protein Albumin Globulin Albumin/Globulin Ratio Arterial Blood Potassium 01/24/18 01/24/18 06:20 06:20 WBC RBC Hgb Hct MCV MCH MCHC RDW Plt Count MPV Neut % (Auto) Lymph % (Auto) Swift % (Auto) Eos % (Auto) Baso % (Auto) Neut # (Auto) Lymph # (Auto) Swift # (Auto) Eos # (Auto) Baso # (Auto) PT 13.7 H INR 1.2 APTT 35 H Puncture Site pCO2 pO2 HCO3 ABG pH ABG Total CO2 ABG O2 Saturation ABG Base Excess Bishop Test ABG Potassium A-a O2 Difference Respiratory Index Sodium 140 Chloride 94 L Glucose Lactate FiO2 Crit Value Called To Crit Value Called By Crit Value Read Back Blood Gas Notified Time Potassium 4.4 Carbon Dioxide 29 Anion Gap 22 H BUN 27 H Creatinine 6.0 H Est GFR ( Amer) 9 Est GFR (Non-Af Amer) 8 POC Glucose (mg/dL) Random Glucose 125 H Calcium 8.3 L Phosphorus 6.6 H Magnesium 2.1 Total Bilirubin 1.6 H AST 32 ALT 19 Alkaline Phosphatase 830 H Total Protein 8.2 Albumin 3.1 L Globulin 5.1 H Albumin/Globulin Ratio 0.6 L Arterial Blood Potassium Fingerstick Blood Sugar Results: 105 Critical Care Progress Note - Nutrition Nutrition: Nutrition Category Date Time Status Renal Diet [DIET] Diets 01/24/18 Breakfast Active Assessment/Plan - Assessment and Plan (Free Text) Assessment: 42F Hypercapneic respiratory failure Plan: Neuro: No acute issues Cardio: History of HTN, no acute issues * amlodipine 5 PO QD * clonidine 0.1 PO TID * losartan 100 PO QD * Lopressor 50 PO BID Pulm: History of COPD. Intubated for airway protection during [employer] on 01/21. Extubated on 01/23 @ 1045. Large R. Pleural effusion s/p thoracentesis 2.5 L straw colored fluid removed. Of note patient has had pleural effusion drained 3x in the last month. Follow up fluid studies. ABG s/p extubation has improved. Will monitor overnight before transfer * duonebs Q4 * L. pleural effusion recurred on cxr. Will reevaluate after dialysis today GI: History of gastroparesis. Ascitis, Acute graciela was considered but HIDA is negative. MRCP showed stones and wall thickening but is likely reactive 2/2 to ascitis, No CBD dilation. No surgical intervention planned * Aldactone 50 PO QD * Reglan 10 IV Q6 * Renal Diet * abdominal US today. plan for paracentesis Renal: ESRD on HD MWF. L. AVF. 12.5 removed today Endo: IDDM, accuchecks Q6 * ISS aspart * Glargine 12u SC Q12 * crestor 5 PO HS ID: Cultures negative so far. F/U repeat BC. Stopped abx as patient is afebrile , no white count and HIDA negative PPX: Heparin, Protonix 40 IV Q12. SCD <[email or web address] M - Last Filed: 01/24/18 14:02> CCU Objective - Vital Signs / Intake & Output Vital Signs (Last 4 hours): Vital Signs Pulse Resp BP BP Pulse Ox 01/24/18 13:30 155/88 H 01/24/18 13:21 155/88 H 01/24/18 13:20 98 H 16 01/24/18 13:00 165/91 H 01/24/18 12:30 167/91 H 01/24/18 12:06 101 H 13 165/95 H 100 01/24/18 12:00 165/95 H 01/24/18 11:36 99 H 15 158/86 H 100 01/24/18 11:30 158/86 H 01/24/18 11:00 162/90 H 01/24/18 10:45 157/89 H 01/24/18 10:30 151/88 H 01/24/18 10:15 98 H 15 147/92 H 98 Intake and Output (Last 8hrs): Intake & Output 01/23/18 01/24/18 01/24/18 22:59 06:59 14:59 Intake Total 0 0 0 Output Total 0 0 0 Balance 0 0 0 Weight 140 lb 6.951 oz Intake: Intake, IV Amount 0 0 0 Right Internal Jugular 0 0 0 Tube Feeding 0 0 0 Output: Urine 0 0 0 Urine, Voided 0 0 0 Emesis 0 0 0 Other: # Bowel Movements 0 0 0 - Medications Active Medications: Active Medications Generic Name Dose Route Start Last Admin Trade Name Freq PRN Reason Stop Dose Admin Albuterol/Ipratropium 3 ml 01/23/18 12:00 01/24/18 11:23 Duoneb 3 Mg/0.5 Mg (3 Ml) Ud INH 3 ml RQ4 GUI Administration Amlodipine Besylate 5 mg 01/18/18 15:45 01/24/18 10:00 Norvasc PO Not Given DAILY [facility] Calcium Acetate 667 mg 01/24/18 14:00 Phoslo PO TIDCC [facility] Clonidine HCl 0.1 mg 01/18/18 18:00 01/24/18 10:00 Catapres PO Not Given TID GUI Epoetin Kevin 4,000 unit 01/24/18 13:15 Procrit IV MWF GUI Heparin Sodium (Porcine) 5,000 units 01/18/18 22:00 01/23/18 22:15 Heparin SC 5,000 units Q12 GUI Administration Insulin Aspart 0 unit 01/23/18 00:00 01/24/18 06:03 Novolog SC Not Given Q6H [facility] Protocol Insulin Glargine 12 unit 01/19/18 21:00 01/24/18 11:16 Lantus SC 12 units Q12H GUI Administration Losartan Potassium 100 mg 01/18/18 16:00 01/24/18 10:00 Cozaar PO Not Given DAILY GUI Metoclopramide HCl 10 mg 01/22/18 10:37 Reglan IVP Q6 PRN Nausea/Vomiting Metoprolol Tartrate 50 mg 01/23/18 10:00 01/24/18 10:00 Lopressor PO Not Given BID GUI Pantoprazole Sodium 40 mg 01/22/18 10:00 01/23/18 09:54 Protonix Inj IVP 40 mg DAILY GUI Administration Rosuvastatin Calcium 5 mg 01/20/18 22:00 01/23/18 22:04 Crestor PO Not Given HS GUI - Patient Studies Lab Studies: Microbiology Studies 01/22/18 Unknown Gram Stain - Final Pleural Fluid Body Fluid Culture - Preliminary NO GROWTH AFTER 2 DAYS 01/21/18 19:00 Blood Culture - Preliminary Blood NO GROWTH AFTER 48 HOURS 01/21/18 18:30 Blood Culture - Preliminary Blood NO GROWTH AFTER 48 HOURS Lab Studies 01/24/18 01/24/18 01/24/18 Range/Units 11:49 06:20 06:20 WBC (4.8-10.8) K/uL RBC (3.80-5.20) Mil/uL Hgb (11.0-16.0) g/dL Hct (34.0-47.0) % MCV (81.0-99.0) fL MCH (27.0-31.0) pg MCHC (33.0-37.0) g/dL RDW (11.5-14.5) % Plt Count (130-400) K/uL MPV (7.2-11.7) fL Neut % (Auto) (50.0-75.0) % Lymph % (Auto) (20.0-40.0) % Swift % (Auto) (0.0-10.0) % Eos % (Auto) (0.0-4.0) % Baso % (Auto) (0.0-2.0) % Neut # (Auto) (1.8-7.0) K/uL Lymph # (Auto) (1.0-4.3) K/uL Swift # (Auto) (0.0-0.8) K/uL Eos # (Auto) (0.0-0.7) K/uL Baso # (Auto) (0.0-0.2) K/uL PT 13.7 H (9.7-12.2) SECONDS INR 1.2 APTT 35 H (21-34) SECONDS Puncture Site pCO2 (35-45) mm/Hg pO2 (80-100) mm/Hg HCO3 (21-28) mmol/L ABG pH (7.35-7.45) ABG Total CO2 (22-28) mmol/L ABG O2 Saturation (95-98) % ABG Base Excess (-2.0-3.0) mmol/L Bishop Test ABG Potassium (3.6-5.2) mmol/L A-a O2 Difference mm/Hg Respiratory Index Sodium 140 (132-148) mmol/l Chloride 94 L (98-107) mmol/L Glucose (65-105) mg/dl Lactate (0.7-2.1) mmol/L FiO2 % Crit Value Called To Crit Value Called By Crit Value Read Back Blood Gas Notified Time Potassium 4.4 (3.6-5.2) mmol/L Carbon Dioxide 29 (22-30) mmol/L Anion Gap 22 H (10-20) BUN 27 H (7-17) mg/dL Creatinine 6.0 H (0.7-1.2) mg/dL Est GFR ( Amer) 9 Est GFR (Non-Af Amer) 8 POC Glucose (mg/dL) 167 H (65-110) mg/dL Random Glucose 125 H (65-105) mg/dL Calcium 8.3 L (8.6-10.4) mg/dl Phosphorus 6.6 H (2.5-4.5) mg/dL Magnesium 2.1 (1.6-2.3) mg/dL Total Bilirubin 1.6 H (0.2-1.3) mg/dL AST 32 (14-36) U/L ALT 19 (9-52) U/L Alkaline Phosphatase 830 H (38-126) U/L Total Protein 8.2 (6.3-8.3) g/dL Albumin 3.1 L (3.5-5.0) g/dL Globulin 5.1 H (2.2-3.9) gm/dL Albumin/Globulin Ratio 0.6 L (1.0-2.1) Arterial Blood Potassium (3.6-5.2) mmol/L 01/24/18 01/24/18 01/24/18 Range/Units 06:19 05:47 00:06 WBC 7.8 (4.8-10.8) K/uL RBC 3.47 L (3.80-5.20) Mil/uL Hgb 10.0 L (11.0-16.0) g/dL Hct 30.4 L (34.0-47.0) % MCV 87.4 (81.0-99.0) fL MCH 28.7 (27.0-31.0) pg MCHC 32.8 L (33.0-37.0) g/dL RDW 16.2 H (11.5-14.5) % Plt Count 209 (130-400) K/uL MPV 10.4 (7.2-11.7) fL Neut % (Auto) 52.9 (50.0-75.0) % Lymph % (Auto) 20.4 (20.0-40.0) % Swift % (Auto) 19.6 H (0.0-10.0) % Eos % (Auto) 6.0 H (0.0-4.0) % Baso % (Auto) 1.1 (0.0-2.0) % Neut # (Auto) 4.1 (1.8-7.0) K/uL Lymph # (Auto) 1.6 (1.0-4.3) K/uL Swift # (Auto) 1.5 H (0.0-0.8) K/uL Eos # (Auto) 0.5 (0.0-0.7) K/uL Baso # (Auto) 0.1 (0.0-0.2) K/uL PT (9.7-12.2) SECONDS INR APTT (21-34) SECONDS Puncture Site pCO2 (35-45) mm/Hg pO2 (80-100) mm/Hg HCO3 (21-28) mmol/L ABG pH (7.35-7.45) ABG Total CO2 (22-28) mmol/L ABG O2 Saturation (95-98) % ABG Base Excess (-2.0-3.0) mmol/L Bishop Test ABG Potassium (3.6-5.2) mmol/L A-a O2 Difference mm/Hg Respiratory Index Sodium (132-148) mmol/l Chloride (98-107) mmol/L Glucose (65-105) mg/dl Lactate (0.7-2.1) mmol/L FiO2 % Crit Value Called To Crit Value Called By Crit Value Read Back Blood Gas Notified Time Potassium (3.6-5.2) mmol/L Carbon Dioxide (22-30) mmol/L Anion Gap (10-20) BUN (7-17) mg/dL Creatinine (0.7-1.2) mg/dL Est GFR ( Amer) Est GFR (Non-Af Amer) POC Glucose (mg/dL) 105 123 H (65-110) mg/dL Random Glucose (65-105) mg/dL Calcium (8.6-10.4) mg/dl Phosphorus (2.5-4.5) mg/dL Magnesium (1.6-2.3) mg/dL Total Bilirubin (0.2-1.3) mg/dL AST (14-36) U/L ALT (9-52) U/L Alkaline Phosphatase (38-126) U/L Total Protein (6.3-8.3) g/dL Albumin (3.5-5.0) g/dL Globulin (2.2-3.9) gm/dL Albumin/Globulin Ratio (1.0-2.1) Arterial Blood Potassium (3.6-5.2) mmol/L 01/23/18 01/23/18 Range/Units 17:39 14:15 WBC (4.8-10.8) K/uL RBC (3.80-5.20) Mil/uL Hgb (11.0-16.0) g/dL Hct (34.0-47.0) % MCV (81.0-99.0) fL MCH (27.0-31.0) pg MCHC (33.0-37.0) g/dL RDW (11.5-14.5) % Plt Count (130-400) K/uL MPV (7.2-11.7) fL Neut % (Auto) (50.0-75.0) % Lymph % (Auto) (20.0-40.0) % Swift % (Auto) (0.0-10.0) % Eos % (Auto) (0.0-4.0) % Baso % (Auto) (0.0-2.0) % Neut # (Auto) (1.8-7.0) K/uL Lymph # (Auto) (1.0-4.3) K/uL Swift # (Auto) (0.0-0.8) K/uL Eos # (Auto) (0.0-0.7) K/uL Baso # (Auto) (0.0-0.2) K/uL PT (9.7-12.2) SECONDS INR APTT (21-34) SECONDS Puncture Site Rb pCO2 39 (35-45) mm/Hg pO2 67 L (80-100) mm/Hg HCO3 30.1 H (21-28) mmol/L ABG pH 7.50 H (7.35-7.45) ABG Total CO2 31.6 H (22-28) mmol/L ABG O2 Saturation 95.2 (95-98) % ABG Base Excess 6.7 H (-2.0-3.0) mmol/L Bishop Test Na ABG Potassium 4.1 (3.6-5.2) mmol/L A-a O2 Difference 84.0 mm/Hg Respiratory Index 1.3 Sodium 141.0 (132-148) mmol/l Chloride 102.0 (98-107) mmol/L Glucose 133 H (65-105) mg/dl Lactate 0.7 (0.7-2.1) mmol/L FiO2 28.0 % Crit Value Called To Dr donya lay Crit Value Called By Kingsley [facility] Crit Value Read Back Y Blood Gas Notified Time 1430 Potassium (3.6-5.2) mmol/L Carbon Dioxide (22-30) mmol/L Anion Gap (10-20) BUN (7-17) mg/dL Creatinine (0.7-1.2) mg/dL Est GFR ( Amer) Est GFR (Non-Af Amer) POC Glucose (mg/dL) 127 H (65-110) mg/dL Random Glucose (65-105) mg/dL Calcium (8.6-10.4) mg/dl Phosphorus (2.5-4.5) mg/dL Magnesium (1.6-2.3) mg/dL Total Bilirubin (0.2-1.3) mg/dL AST (14-36) U/L ALT (9-52) U/L Alkaline Phosphatase (38-126) U/L Total Protein (6.3-8.3) g/dL Albumin (3.5-5.0) g/dL Globulin (2.2-3.9) gm/dL Albumin/Globulin Ratio (1.0-2.1) Arterial Blood Potassium 4.1 (3.6-5.2) mmol/L Laboratory Results - last 24 hr 01/23/18 01/23/18 01/24/18 14:15 17:39 00:06 WBC RBC Hgb Hct MCV MCH MCHC RDW Plt Count MPV Neut % (Auto) Lymph % (Auto) Swift % (Auto) Eos % (Auto) Baso % (Auto) Neut # (Auto) Lymph # (Auto) Swift # (Auto) Eos # (Auto) Baso # (Auto) PT INR APTT Puncture Site Rb pCO2 39 pO2 67 L HCO3 30.1 H ABG pH 7.50 H ABG Total CO2 31.6 H ABG O2 Saturation 95.2 ABG Base Excess 6.7 H Bishop Test Na ABG Potassium 4.1 A-a O2 Difference 84.0 Respiratory Index 1.3 Sodium 141.0 Chloride 102.0 Glucose 133 H Lactate 0.7 FiO2 28.0 Crit Value Called To Dr donya lay Crit Value Called By Kingsley [facility] Crit Value Read Back Y Blood Gas Notified Time 1430 Potassium Carbon Dioxide Anion Gap BUN Creatinine Est GFR ( Amer) Est GFR (Non-Af Amer) POC Glucose (mg/dL) 127 H 123 H Random Glucose Calcium Phosphorus Magnesium Total Bilirubin AST ALT Alkaline Phosphatase Total Protein Albumin Globulin Albumin/Globulin Ratio Arterial Blood Potassium 4.1 01/24/18 01/24/18 01/24/18 05:47 06:19 06:20 WBC 7.8 RBC 3.47 L Hgb 10.0 L Hct 30.4 L MCV 87.4 MCH 28.7 MCHC 32.8 L RDW 16.2 H Plt Count 209 MPV 10.4 Neut % (Auto) 52.9 Lymph % (Auto) 20.4 Swift % (Auto) 19.6 H Eos % (Auto) 6.0 H Baso % (Auto) 1.1 Neut # (Auto) 4.1 Lymph # (Auto) 1.6 Swift # (Auto) 1.5 H Eos # (Auto) 0.5 Baso # (Auto) 0.1 PT 13.7 H INR 1.2 APTT 35 H Puncture Site pCO2 pO2 HCO3 ABG pH ABG Total CO2 ABG O2 Saturation ABG Base Excess Bishop Test ABG Potassium A-a O2 Difference Respiratory Index Sodium Chloride Glucose Lactate FiO2 Crit Value Called To Crit Value Called By Crit Value Read Back Blood Gas Notified Time Potassium Carbon Dioxide Anion Gap BUN Creatinine Est GFR ( Amer) Est GFR (Non-Af Amer) POC Glucose (mg/dL) 105 Random Glucose Calcium Phosphorus Magnesium Total Bilirubin AST ALT Alkaline Phosphatase Total Protein Albumin Globulin Albumin/Globulin Ratio Arterial Blood Potassium 01/24/18 01/24/18 06:20 11:49 WBC RBC Hgb Hct MCV MCH MCHC RDW Plt Count MPV Neut % (Auto) Lymph % (Auto) Swift % (Auto) Eos % (Auto) Baso % (Auto) Neut # (Auto) Lymph # (Auto) Swift # (Auto) Eos # (Auto) Baso # (Auto) PT INR APTT Puncture Site pCO2 pO2 HCO3 ABG pH ABG Total CO2 ABG O2 Saturation ABG Base Excess Bishop Test ABG Potassium A-a O2 Difference Respiratory Index Sodium 140 Chloride 94 L Glucose Lactate FiO2 Crit Value Called To Crit Value Called By Crit Value Read Back Blood Gas Notified Time Potassium 4.4 Carbon Dioxide 29 Anion Gap 22 H BUN 27 H Creatinine 6.0 H Est GFR ( Amer) 9 Est GFR (Non-Af Amer) 8 POC Glucose (mg/dL) 167 H Random Glucose 125 H Calcium 8.3 L Phosphorus 6.6 H Magnesium 2.1 Total Bilirubin 1.6 H AST 32 ALT 19 Alkaline Phosphatase 830 H Total Protein 8.2 Albumin 3.1 L Globulin 5.1 H Albumin/Globulin Ratio 0.6 L Arterial Blood Potassium Critical Care Progress Note - Nutrition Nutrition: Nutrition Category Date Time Status Renal Diet [DIET] Diets 01/24/18 Breakfast Active Attending/Attestation - Attestation I have personally seen and examined this patient.: Yes I have fully participated in the care of the patient.: Yes I have reviewed all pertinent clinical information: Yes Notes (Text): 01/24/18 14:02 Today: Wednesday, January 24, 2018 The Patient was seen and examined at the bedside, Medical records reviewed, and management issues were discussed and formulated with the house staff. I have reviewed all the relevant clinical, laboratory, hemodynamic, radiographic data and medications Events reviewed Pain issues, skin care, head of the bed elevation, glycemic control were addressed. Agree with above resident's assessment and treatment plans of care as transcribed in Dr. Ortiz note.
--- NOTE | 2018-01-24 12:58 | CP.PCM.PN ---
Subjective - Date & Time of Evaluation Date of Evaluation: 01/24/18 Time of Evaluation: 12:55 - Subjective Subjective: Seen on dialysis pleural effusion has recurred- post removal 2500ml To UF 3500ml with HD now Feels better, less dyspneic Would not recommend aldactone and ARB use together as chronic outpt meds Objective - Vital Signs/Intake and Output Vital Signs (last 24 hours): Temp Pulse Resp BP Pulse Ox 98.7 F 98 H 15 167/91 H 97 01/24/18 09:55 01/24/18 09:55 01/24/18 09:55 01/24/18 12:30 01/24/18 06:04 Intake and Output: 01/24/18 01/24/18 06:59 18:59 Intake Total 0 0 Output Total 0 0 Balance 0 0 - Medications Medications: Current Medications Albuterol/Ipratropium (Duoneb 3 Mg/0.5 Mg (3 Ml) Ud) 3 ml INH RQ4 [facility] Last Admin: 01/24/18 11:23 Dose: 3 ml Amlodipine Besylate (Norvasc) 5 mg PO DAILY [facility] Last Admin: 01/24/18 10:00 Dose: Not Given Clonidine HCl (Catapres) 0.1 mg PO TID [facility] Last Admin: 01/24/18 10:00 Dose: Not Given Heparin Sodium (Porcine) (Heparin) 5,000 units SC Q12 [facility] Last Admin: 01/23/18 22:15 Dose: 5,000 units Insulin Aspart (Novolog) 0 unit SC Q6H [facility] PRN Reason: Protocol Last Admin: 01/24/18 06:03 Dose: Not Given Insulin Glargine (Lantus) 12 unit SC Q12H [facility] Last Admin: 01/24/18 11:16 Dose: 12 units Losartan Potassium (Cozaar) 100 mg PO DAILY [facility] Last Admin: 01/24/18 10:00 Dose: Not Given Metoclopramide HCl (Reglan) 10 mg IVP Q6 PRN PRN Reason: Nausea/Vomiting Metoprolol Tartrate (Lopressor) 50 mg PO BID [facility] Last Admin: 01/24/18 10:00 Dose: Not Given Pantoprazole Sodium (Protonix Inj) 40 mg IVP DAILY [facility] Last Admin: 01/23/18 09:54 Dose: 40 mg Rosuvastatin Calcium (Crestor) 5 mg PO HS [facility] Last Admin: 01/23/18 22:04 Dose: Not Given Spironolactone (Aldactone) 50 mg PO DAILY [facility] Last Admin: 01/24/18 10:00 Dose: Not Given - Labs Labs: 01/24/18 06:19 01/24/18 06:20 PT 13.7 SECONDS (9.7-12.2) H 01/24/18 06:20 INR 1.2 01/24/18 06:20 APTT 35 SECONDS (21-34) H 01/24/18 06:20 - Constitutional Appears: No Acute Distress, Chronically Ill - Head Exam Head Exam: ATRAUMATIC, NORMAL INSPECTION - Eye Exam Eye Exam: EOMI, Normal appearance - Neck Exam Neck Exam: Normal Inspection. absent: Tenderness - Respiratory Exam Respiratory Exam: Decreased Breath Sounds, NORMAL BREATHING PATTERN - Cardiovascular Exam Cardiovascular Exam: REGULAR RHYTHM, +S1 - GI/Abdominal Exam GI & Abdominal Exam: Soft. absent: Tenderness - Extremities Exam Extremities Exam: Normal Inspection. absent: Tenderness - Neurological Exam Neurological Exam: Awake, CN II-XII Intact - Skin Skin Exam: Dry, Warm Assessment and Plan - Assessment and Plan (Free Text) Plan: Repeat HD in AM for UF Stop aldactone Add ESAs
[2018-01-24] MEDS ORDERED: EPOETIN ALFA 4,000 UNIT/ML ML Dialysis IV SCH (13:15)
--- NOTE | 2018-01-24 14:54 | CP.PCM.CON ---
History of Present Illness - History of Present Illness History of Present Illness: CT Surgery Consult: Dr. Rivas Patient is a 42yo female with a PMH of gastroparesis, COPD, HTN, DM and ESRD on HD (M,W,F) with recurrent pleural effusions. Pt underwent thoracentesis on 01/22 & about 2.5L of straw colored fluid was drained. Pt also had HD today draining another 2.5L. As per discussion with the ICU team & the pt, she has had multiple thoracentesis just last month. At this time, the recurrent effusions are thought to be secondary to her ascites. This AM pt's CXR showed reaccumulation of R sided pleural effusion and CT surgery called to evaluate. Currently, pt is resting comfortably in ICU bed. Complains of right sided chest pain over thoracentesis site. Also admits to pain around 2nd rib but denies other complaints. She denies SOB, fatigue, fever, chills, N/V/C/D, abdominal pain, headache. PMH: gastroparesis, COPD, hypercholesterolemia, HTN, DM, ESRD on HD (M, W, F) PSH: CS, AVF 02/01 PFH: denies hx of cancer, stroke or heart attack Review of Systems - Review of Systems All systems: reviewed and no additional remarkable complaints except (As per HPI ) Past Patient History - Infectious Disease Hx of Infectious Diseases: None - Past Medical History & Family History Past Medical History?: Yes Past Family History: Reviewed and not pertinent - Past Social History Smoking Status: Never Smoked Alcohol: None Drugs: Denies - CARDIAC Hx Hypercholesterolemia: Yes Hx Hypertension: Yes - PULMONARY Hx Chronic Obstructive Pulmonary Disease (COPD): Yes - NEUROLOGICAL Hx Neurological Disorder: Yes HX Cerebrovascular Accident: Yes (01/2016, left sided weakness) - HEENT Hx HEENT Problems: Yes Other/Comment: Wears Eyeglasses - RENAL Date of Last Dialysis Treatment: 01/17/18 - ENDOCRINE/METABOLIC Hx Diabetes Mellitus Type 2: Yes - HEMATOLOGICAL/ONCOLOGICAL Hx Blood Disorders: Yes Hx Anemia: Yes Hx Blood Transfusions: Yes - INTEGUMENTARY Hx Dermatological Problems: No - MUSCULOSKELETAL/RHEUMATOLOGICAL Hx Musculoskeletal Disorders: Yes Hx Back Pain: Yes Hx Falls: Yes (3 months ago) Hx Spinal Stenosis: Yes Other/Comment: uses walker at home - GASTROINTESTINAL Hx Gastrointestinal Disorders: Yes Hx Gastritis: Yes Hx Nausea: Yes Other/Comment: Hx of gastroparesis as per pt. - GENITOURINARY/GYNECOLOGICAL Hx Genitourinary Disorders: No - PSYCHIATRIC Hx Substance Use: No - SURGICAL HISTORY Hx Surgeries: Yes Hx Section: Yes Other/Comment: Insertion Of HD Cath on the R Internal Jugular; left forearm graft for dialysis. - ANESTHESIA Hx Anesthesia: Yes Hx Anesthesia Reactions: No Hx Malignant Hyperthermia: No Has any member of the family had a problem w/ anesthesia?: No Meds Allergies/Adverse Reactions: Allergies Allergy/AdvReac Type Severity Reaction Status Date / Time No Known Allergies Allergy Verified 01/18/18 08:51 - Medications Medications: Current Medications Albuterol/Ipratropium (Duoneb 3 Mg/0.5 Mg (3 Ml) Ud) 3 ml INH RQ4 [facility] Last Admin: 01/24/18 11:23 Dose: 3 ml Amlodipine Besylate (Norvasc) 5 mg PO DAILY [facility] Last Admin: 01/24/18 10:00 Dose: Not Given Calcium Acetate (Phoslo) 667 mg PO TIDCC [facility] Clonidine HCl (Catapres) 0.1 mg PO TID [facility] Last Admin: 01/24/18 10:00 Dose: Not Given Epoetin Kevin (Procrit) 4,000 unit IV MWF [facility] Heparin Sodium (Porcine) (Heparin) 5,000 units SC Q12 [facility] Last Admin: 01/23/18 22:15 Dose: 5,000 units Insulin Aspart (Novolog) 0 unit SC Q6H [facility] PRN Reason: Protocol Last Admin: 01/24/18 06:03 Dose: Not Given Insulin Glargine (Lantus) 12 unit SC Q12H [facility] Last Admin: 01/24/18 11:16 Dose: 12 units Losartan Potassium (Cozaar) 100 mg PO DAILY [facility] Last Admin: 01/24/18 10:00 Dose: Not Given Metoclopramide HCl (Reglan) 10 mg IVP Q6 PRN PRN Reason: Nausea/Vomiting Metoprolol Tartrate (Lopressor) 50 mg PO BID [facility] Last Admin: 01/24/18 10:00 Dose: Not Given Pantoprazole Sodium (Protonix Inj) 40 mg IVP DAILY [facility] Last Admin: 01/23/18 09:54 Dose: 40 mg Rosuvastatin Calcium (Crestor) 5 mg PO HS [facility] Last Admin: 01/23/18 22:04 Dose: Not Given Physical Exam - Constitutional Appears: Well, No Acute Distress - Head Exam Head Exam: ATRAUMATIC, NORMOCEPHALIC - Eye Exam Eye Exam: EOMI, Normal appearance, PERRL Pupil Exam: NORMAL ACCOMODATION - ENT Exam ENT Exam: Mucous Membranes Moist, Normal Exam - Neck Exam Neck exam: Positive for: Normal Inspection - Respiratory Exam Respiratory Exam: Decreased Breath Sounds (R lung base), Clear to Auscultation Bilateral, NORMAL BREATHING PATTERN. absent: Respiratory Distress - Cardiovascular Exam Cardiovascular Exam: Tachycardia, +S1, +S2 Additional comments: Chest pain upon palpation on right side over 2nd rib - GI/Abdominal Exam GI & Abdominal Exam: Normal Bowel Sounds, Soft. absent: Tenderness - Extremities Exam Extremities exam: Positive for: normal inspection. Negative for: tenderness Additional comments: AVF in left arm with palpable thrill - Neurological Exam Neurological exam: Alert, Oriented x3 - Psychiatric Exam Psychiatric exam: Normal Affect, Normal Mood - Skin Skin Exam: Intact, Normal Color, Warm Results - Vital Signs Recent Vital Signs: Last Vital Signs Temp 98.7 F 01/24/18 09:55 Pulse 98 H 01/24/18 13:20 Resp 16 01/24/18 13:20 BP 155/88 H 01/24/18 13:30 Pulse Ox 100 01/24/18 12:06 - Labs Result Diagrams: 01/24/18 06:19 01/24/18 06:20 Labs: Laboratory Results - last 24 hr 01/23/18 01/24/18 01/24/18 17:39 00:06 05:47 WBC RBC Hgb Hct MCV MCH MCHC RDW Plt Count MPV Neut % (Auto) Lymph % (Auto) Cook % (Auto) Eos % (Auto) Baso % (Auto) Neut # (Auto) Lymph # (Auto) Cook # (Auto) Eos # (Auto) Baso # (Auto) PT INR APTT Sodium Potassium Chloride Carbon Dioxide Anion Gap BUN Creatinine Est GFR ( Amer) Est GFR (Non-Af Amer) POC Glucose (mg/dL) 127 H 123 H 105 Random Glucose Calcium Phosphorus Magnesium Total Bilirubin AST ALT Alkaline Phosphatase Total Protein Albumin Globulin Albumin/Globulin Ratio 01/24/18 01/24/18 01/24/18 06:19 06:20 06:20 WBC 7.8 RBC 3.47 L Hgb 10.0 L Hct 30.4 L MCV 87.4 MCH 28.7 MCHC 32.8 L RDW 16.2 H Plt Count 209 MPV 10.4 Neut % (Auto) 52.9 Lymph % (Auto) 20.4 Cook % (Auto) 19.6 H Eos % (Auto) 6.0 H Baso % (Auto) 1.1 Neut # (Auto) 4.1 Lymph # (Auto) 1.6 Cook # (Auto) 1.5 H Eos # (Auto) 0.5 Baso # (Auto) 0.1 PT 13.7 H INR 1.2 APTT 35 H Sodium 140 Potassium 4.4 Chloride 94 L Carbon Dioxide 29 Anion Gap 22 H BUN 27 H Creatinine 6.0 H Est GFR ( Amer) 9 Est GFR (Non-Af Amer) 8 POC Glucose (mg/dL) Random Glucose 125 H Calcium 8.3 L Phosphorus 6.6 H Magnesium 2.1 Total Bilirubin 1.6 H AST 32 ALT 19 Alkaline Phosphatase 830 H Total Protein 8.2 Albumin 3.1 L Globulin 5.1 H Albumin/Globulin Ratio 0.6 L 01/24/18 11:49 WBC RBC Hgb Hct MCV MCH MCHC RDW Plt Count MPV Neut % (Auto) Lymph % (Auto) Cook % (Auto) Eos % (Auto) Baso % (Auto) Neut # (Auto) Lymph # (Auto) Cook # (Auto) Eos # (Auto) Baso # (Auto) PT INR APTT Sodium Potassium Chloride Carbon Dioxide Anion Gap BUN Creatinine Est GFR ( Amer) Est GFR (Non-Af Amer) POC Glucose (mg/dL) 167 H Random Glucose Calcium Phosphorus Magnesium Total Bilirubin AST ALT Alkaline Phosphatase Total Protein Albumin Globulin Albumin/Globulin Ratio - Imaging and Cardiology Chest x-ray Status: Image reviewed by me, Report reviewed by me Assessment & Plan - Assessment and Plan (Free Text) Assessment: 42 yo female with recurrent pleural effusions. Plan: - since pt's recurrent effusions are likely 2/2 her ascites, she needs control of her ascites in order to improve her recurrent effusions - surgical intervention is not the best option at this time - recommend IR placement of pigtail catheter for symptomatic relief via drainage as needed - d/w Dr. Rivas who agrees with above Har[place]. PGY-3 Surgery - Date & Time Date: 01/24/18 Time: 14:58
[2018-01-24] MEDS: EPOETIN ALFA 4,000 UNIT/ML ML Dialysis IV SCH (15:33)
--- NOTE | 2018-01-24 16:37 | CP.PCM.PN ---
Subjective - Date & Time of Evaluation Date of Evaluation: 01/24/18 Time of Evaluation: 16:37 Objective - Vital Signs/Intake and Output Vital Signs (last 24 hours): Temp Pulse Resp BP Pulse Ox 98.7 F 98 H 16 155/88 H 100 01/24/18 09:55 01/24/18 13:20 01/24/18 13:20 01/24/18 13:30 01/24/18 12:06 Intake and Output: 01/24/18 01/24/18 06:59 18:59 Intake Total 0 0 Output Total 0 0 Balance 0 0 - Medications Medications: Current Medications Albuterol/Ipratropium (Duoneb 3 Mg/0.5 Mg (3 Ml) Ud) 3 ml INH RQ4 [facility] Last Admin: 01/24/18 11:23 Dose: 3 ml Amlodipine Besylate (Norvasc) 5 mg PO DAILY [facility] Last Admin: 01/24/18 10:00 Dose: Not Given Calcium Acetate (Phoslo) 667 mg PO TIDCC [facility] Last Admin: 01/24/18 15:12 Dose: 667 mg Clonidine HCl (Catapres) 0.1 mg PO TID [facility] Last Admin: 01/24/18 14:00 Dose: Not Given Epoetin Kevin (Procrit) 4,000 unit IV MWF [facility] Last Admin: 01/24/18 15:33 Dose: 4,000 unit Heparin Sodium (Porcine) (Heparin) 5,000 units SC Q12 [facility] Last Admin: 01/24/18 10:00 Dose: Not Given Insulin Aspart (Novolog) 0 unit SC Q6H [facility] PRN Reason: Protocol Last Admin: 01/24/18 14:48 Dose: 2 unit Insulin Glargine (Lantus) 12 unit SC Q12H [facility] Last Admin: 01/24/18 11:16 Dose: 12 units Losartan Potassium (Cozaar) 100 mg PO DAILY [facility] Last Admin: 01/24/18 10:00 Dose: Not Given Metoclopramide HCl (Reglan) 10 mg IVP Q6 PRN PRN Reason: Nausea/Vomiting Metoprolol Tartrate (Lopressor) 50 mg PO BID [facility] Last Admin: 01/24/18 10:00 Dose: Not Given Pantoprazole Sodium (Protonix Inj) 40 mg IVP DAILY [facility] Last Admin: 01/24/18 15:27 Dose: 40 mg Rosuvastatin Calcium (Crestor) 5 mg PO HS [facility] Last Admin: 01/23/18 22:04 Dose: Not Given - Labs Labs: 01/24/18 06:19 01/24/18 06:20 PT 13.7 SECONDS (9.7-12.2) H 01/24/18 06:20 INR 1.2 01/24/18 06:20 APTT 35 SECONDS (21-34) H 01/24/18 06:20
--- NOTE | 2018-01-24 16:47 | CP.PCM.PN ---
Subjective - Date & Time of Evaluation Date of Evaluation: 01/23/18 Time of Evaluation: 16:45 Objective - Vital Signs/Intake and Output Vital Signs (last 24 hours): Temp Pulse Resp BP Pulse Ox 98.7 F 98 H 16 155/88 H 100 01/24/18 09:55 01/24/18 13:20 01/24/18 13:20 01/24/18 13:30 01/24/18 12:06 Intake and Output: 01/24/18 01/24/18 06:59 18:59 Intake Total 0 0 Output Total 0 0 Balance 0 0 - Medications Medications: Current Medications Albuterol/Ipratropium (Duoneb 3 Mg/0.5 Mg (3 Ml) Ud) 3 ml INH RQ4 [facility] Last Admin: 01/24/18 16:40 Dose: 3 ml Amlodipine Besylate (Norvasc) 5 mg PO DAILY [facility] Last Admin: 01/24/18 10:00 Dose: Not Given Calcium Acetate (Phoslo) 667 mg PO TIDCC [facility] Last Admin: 01/24/18 15:12 Dose: 667 mg Clonidine HCl (Catapres) 0.1 mg PO TID [facility] Last Admin: 01/24/18 14:00 Dose: Not Given Epoetin Kevin (Procrit) 4,000 unit IV MWF [facility] Last Admin: 01/24/18 15:33 Dose: 4,000 unit Heparin Sodium (Porcine) (Heparin) 5,000 units SC Q12 [facility] Last Admin: 01/24/18 10:00 Dose: Not Given Insulin Aspart (Novolog) 0 unit SC Q6H [facility] PRN Reason: Protocol Last Admin: 01/24/18 14:48 Dose: 2 unit Insulin Glargine (Lantus) 12 unit SC Q12H [facility] Last Admin: 01/24/18 11:16 Dose: 12 units Losartan Potassium (Cozaar) 100 mg PO DAILY [facility] Last Admin: 01/24/18 10:00 Dose: Not Given Metoclopramide HCl (Reglan) 10 mg IVP Q6 PRN PRN Reason: Nausea/Vomiting Metoprolol Tartrate (Lopressor) 50 mg PO BID [facility] Last Admin: 01/24/18 10:00 Dose: Not Given Pantoprazole Sodium (Protonix Inj) 40 mg IVP DAILY [facility] Last Admin: 01/24/18 15:27 Dose: 40 mg Rosuvastatin Calcium (Crestor) 5 mg PO HS [facility] Last Admin: 01/23/18 22:04 Dose: Not Given - Labs Labs: 01/24/18 06:19 01/24/18 06:20 PT 13.7 SECONDS (9.7-12.2) H 01/24/18 06:20 INR 1.2 01/24/18 06:20 APTT 35 SECONDS (21-34) H 01/24/18 06:20
--- NOTE | 2018-01-24 17:22 | US ---
Limited abdomen Comparison: None Indication: Assess for ascites Findings: Minimal ascites identified. Incidental note is made of right-sided pleural effusion. Partially imaged subtle nodular hepatic contour. Impression: Minimal ascites identified. Incidental note is made of right-sided pleural effusion. Partially imaged subtle nodular hepatic contour.
--- NOTE | 2018-01-24 17:35 | CP.PCM.PN ---
Subjective - Date & Time of Evaluation Date of Evaluation: 01/24/18 Time of Evaluation: 07:00 - Subjective Subjective: 42 yo female with Hx of ESRD was admitted with abd pain and suspicion of cholecystitis Cholecystitis eventually ruled out Hosp course complicated by resp failure secondary to large right effusion patient iss stable s/p thoracentesis and extubation all cultures so far negative has recurrent effusions CT Surg recc Pigtail Objective - Vital Signs/Intake and Output Vital Signs (last 24 hours): Temp Pulse Resp BP Pulse Ox 98.7 F 98 H 16 155/88 H 100 01/24/18 09:55 01/24/18 13:20 01/24/18 13:20 01/24/18 13:30 01/24/18 12:06 Intake and Output: 01/24/18 01/24/18 06:59 18:59 Intake Total 0 0 Output Total 0 0 Balance 0 0 - Medications Medications: Current Medications Albuterol/Ipratropium (Duoneb 3 Mg/0.5 Mg (3 Ml) Ud) 3 ml INH RQ4 [facility] Last Admin: 01/24/18 16:40 Dose: 3 ml Amlodipine Besylate (Norvasc) 5 mg PO DAILY [facility] Last Admin: 01/24/18 10:00 Dose: Not Given Calcium Acetate (Phoslo) 667 mg PO TIDCC [facility] Last Admin: 01/24/18 17:27 Dose: 667 mg Clonidine HCl (Catapres) 0.1 mg PO TID [facility] Last Admin: 01/24/18 14:00 Dose: Not Given Epoetin Kevin (Procrit) 4,000 unit IV MWF [facility] Last Admin: 01/24/18 15:33 Dose: 4,000 unit Heparin Sodium (Porcine) (Heparin) 5,000 units SC Q12 [facility] Last Admin: 01/24/18 10:00 Dose: Not Given Insulin Aspart (Novolog) 0 unit SC Q6H [facility] PRN Reason: Protocol Last Admin: 01/24/18 14:48 Dose: 2 unit Insulin Glargine (Lantus) 12 unit SC Q12H [facility] Last Admin: 01/24/18 11:16 Dose: 12 units Losartan Potassium (Cozaar) 100 mg PO DAILY [facility] Last Admin: 01/24/18 10:00 Dose: Not Given Metoclopramide HCl (Reglan) 10 mg IVP Q6 PRN PRN Reason: Nausea/Vomiting Metoprolol Tartrate (Lopressor) 50 mg PO BID [facility] Last Admin: 01/24/18 10:00 Dose: Not Given Pantoprazole Sodium (Protonix Inj) 40 mg IVP DAILY [facility] Last Admin: 01/24/18 15:27 Dose: 40 mg Rosuvastatin Calcium (Crestor) 5 mg PO HS [facility] Last Admin: 01/23/18 22:04 Dose: Not Given - Labs Labs: 01/24/18 06:19 01/24/18 06:20 PT 13.7 SECONDS (9.7-12.2) H 01/24/18 06:20 INR 1.2 01/24/18 06:20 APTT 35 SECONDS (21-34) H 01/24/18 06:20 - Constitutional Appears: Non-toxic, Chronically Ill - Head Exam Head Exam: NORMOCEPHALIC - Eye Exam Eye Exam: PERRL. absent: Scleral icterus - ENT Exam ENT Exam: Mucous Membranes Dry - Neck Exam Neck Exam: absent: Lymphadenopathy - Respiratory Exam Respiratory Exam: Decreased Breath Sounds - Cardiovascular Exam Cardiovascular Exam: REGULAR RHYTHM - GI/Abdominal Exam GI & Abdominal Exam: Distended - Rectal Exam Rectal Exam: Deferred - Exam Exam: NORMAL INSPECTION - Back Exam Back Exam: absent: CVA tenderness (L), CVA tenderness (R) - Neurological Exam Neurological Exam: Alert, Awake, Oriented x3 Neuro motor strength exam: Left Upper Extremity: 4, Right Upper Extremity: 4, Left Lower Extremity: 4, Right Lower Extremity: 4 - Psychiatric Exam Psychiatric exam: Depressed - Skin Skin Exam: Dry Assessment and Plan (1) Cholecystitis Status: Ruled-out (2) Abdominal pain Status: Acute (3) Hyperglycemia Status: Acute (4) JOSE MIGUEL (acute kidney injury) Status: Acute (5) Controlled type 2 diabetes mellitus with diabetic nephropathy Status: Acute (6) Diabetes mellitus with ESRD (end-stage renal disease) Status: Acute (7) Diabetes mellitus with chronic kidney disease Status: Acute (8) Diabetic nephropathy Status: Acute (9) ESRD (end stage renal disease) on dialysis Status: Acute (10) Intractable vomiting Status: Acute (11) CHF exacerbation Status: Acute (12) CHF (congestive heart failure) Status: Acute (13) Volume overload Status: Acute (14) Volume overload Status: Acute - Assessment and Plan (Free Text) Assessment: 42 yo female with Hx of ESRD was admitted with abd pain and suspicion of cholecystitis Cholecystitis eventually ruled out Hosp course complicated by resp failure secondary to large right effusion patient iss stable s/p thoracentesis and extubation all cultures so far negative has recurrent effusions CT Surg recc Pigtail
[2018-01-24] MEDS ORDERED: (Novolog) Insulin Aspart, Recombinant 100 u/ml 10 ml vial SC SCH ×3 (22:00)
[2018-01-25] MEDS: Albuterol-Ipratrop 3 mg / 0.5 (3 ml) UD INH SCH ×5 (03:27→20:40)
[2018-01-25 06:12] LABS: BASO # 0.1 K/uL (0.0-0.2); EOS # 0.3 K/uL (0.0-0.7); EOS % 3.6 % (0.0-4.0); LYMPH # 1.2 K/uL (1.0-4.3); LYMPH % 14.1 % (20.0-40.0); MEAN CELL VOLUME 88.2 fL (81.0-99.0); MEAN CORPUSCULAR HEMOGLOBIN 28.7 pg (27.0-31.0); MEAN CORPUSCULAR HGB CONC 32.5 g/dL (33.0-37.0); MONO # 1.7 K/uL (0.0-0.8); MONO % 19.5 % (0.0-10.0); NEUT # 5.4 K/uL (1.8-7.0); NEUT % 61.8 % (50.0-75.0); NRBC % 0.1 % (0.0-2.0); RBC 3.5 Mil/uL (3.80-5.20); RED CELL DISTRIBUTION WIDTH 16.5 % (11.5-14.5); WHITE BLOOD COUNT 8.7 K/uL (4.8-10.8)
[2018-01-25 06:39] LABS: ALB/GLOB RATIO 0.7 (1.0-2.1); ALBUMIN 3.2 g/dL (3.5-5.0)
[2018-01-25] MEDS ORDERED: (Novolog) Insulin Aspart, Recombinant 100 u/ml 10 ml vial SC STA (06:49)
[2018-01-25] MEDS ORDERED: (Novolog Mix 70/30) Insulin Aspart/Insulin Aspar 100 units/ml SC SCH (07:30)
[2018-01-25] MEDS: (Lantus) Insulin Glargine, Recombinant SC SCH ×2 (08:04→16:16)
[2018-01-25] MEDS: (Novolog) Insulin Aspart, Recombinant 100 u/ml 10 ml vial SC SCH ×4 (08:05→21:59)
--- NOTE | 2018-01-25 08:24 | CP.PCM.PN ---
Subjective - Date & Time of Evaluation Date of Evaluation: 01/25/18 Time of Evaluation: 08:22 - Subjective Subjective: pt seen and examined extubated, in chair, eating breakfast had HD yesterday no SOB BP 149/80 afebrile ROS- as per HPI, other than that 10 point ROS negative Objective - Vital Signs/Intake and Output Vital Signs (last 24 hours): Temp Pulse Resp BP Pulse Ox 97.5 F L 91 H 13 148/76 100 01/25/18 04:00 01/25/18 06:00 01/25/18 06:00 01/25/18 06:00 01/25/18 06:00 Intake and Output: 01/25/18 01/25/18 06:59 18:59 Intake Total 370 Output Total 0 Balance 370 - Medications Medications: Current Medications Albuterol/Ipratropium (Duoneb 3 Mg/0.5 Mg (3 Ml) Ud) 3 ml INH RQ4 [facility] Last Admin: 01/25/18 08:13 Dose: 3 ml Amlodipine Besylate (Norvasc) 5 mg PO DAILY [facility] Last Admin: 01/24/18 10:00 Dose: Not Given Calcium Acetate (Phoslo) 667 mg PO TIDCC [facility] Last Admin: 01/25/18 08:05 Dose: 667 mg Clonidine HCl (Catapres) 0.1 mg PO TID [facility] Last Admin: 01/24/18 18:27 Dose: 0.1 mg Epoetin Kevin (Procrit) 4,000 unit IV MWF [facility] Last Admin: 01/24/18 15:33 Dose: 4,000 unit Heparin Sodium (Porcine) (Heparin) 5,000 units SC Q12 [facility] Last Admin: 01/24/18 22:07 Dose: 5,000 units Insulin Aspart (Novolog) 0 unit SC ACHS [facility] PRN Reason: Protocol Last Admin: 01/25/18 08:05 Dose: Not Given Insulin Glargine (Lantus) 12 unit SC Q12H [facility] Last Admin: 01/25/18 08:04 Dose: 12 units Losartan Potassium (Cozaar) 100 mg PO DAILY [facility] Last Admin: 01/24/18 10:00 Dose: Not Given Metoclopramide HCl (Reglan) 10 mg IVP Q6 PRN PRN Reason: Nausea/Vomiting Metoprolol Tartrate (Lopressor) 50 mg PO BID [facility] Last Admin: 01/24/18 18:28 Dose: 50 mg Pantoprazole Sodium (Protonix Inj) 40 mg IVP DAILY [facility] Last Admin: 01/24/18 15:27 Dose: 40 mg Rosuvastatin Calcium (Crestor) 5 mg PO HS [facility] Last Admin: 01/24/18 22:16 Dose: Not Given - Labs Labs: 01/25/18 06:03 01/25/18 06:03 PT 13.7 SECONDS (9.7-12.2) H 01/24/18 06:20 INR 1.2 01/24/18 06:20 APTT 35 SECONDS (21-34) H 01/24/18 06:20 - Constitutional Appears: Well, Non-toxic - Head Exam Head Exam: ATRAUMATIC, NORMOCEPHALIC - Eye Exam Eye Exam: EOMI, PERRL - ENT Exam ENT Exam: Mucous Membranes Moist - Neck Exam Neck Exam: Full ROM - Respiratory Exam Respiratory Exam: Rhonchi. absent: Wheezes - Cardiovascular Exam Cardiovascular Exam: REGULAR RHYTHM, +S1, +S2 - GI/Abdominal Exam GI & Abdominal Exam: Soft. absent: Distended, Tenderness - Extremities Exam Extremities Exam: Full ROM. absent: Pedal Edema - Neurological Exam Neurological Exam: Alert, Awake, Oriented x3 - Psychiatric Exam Psychiatric exam: Normal Affect, Normal Mood - Skin Skin Exam: Intact, Warm Assessment and Plan (1) Anemia Status: Acute (2) CHF (congestive heart failure) Status: Acute (3) ESRD (end stage renal disease) on dialysis Status: Acute (4) Uncontrolled diabetes mellitus Status: Acute (5) Hypertension Status: Chronic - Assessment and Plan (Free Text) Plan: HD again today to optimize volume status fluid restriction physical therapy same BP meds for now if remains elevated post HD, can increase meds
--- NOTE | 2018-01-25 14:28 | CP.PCM.PN ---
Subjective - Date & Time of Evaluation Date of Evaluation: 01/25/18 Time of Evaluation: 14:27 Objective - Vital Signs/Intake and Output Vital Signs (last 24 hours): Temp Pulse Resp BP Pulse Ox 98.2 F 103 H 12 133/77 100 01/25/18 12:00 01/25/18 13:57 01/25/18 13:57 01/25/18 13:57 01/25/18 13:57 Intake and Output: 01/25/18 01/25/18 06:59 18:59 Intake Total 370 540 Output Total 0 Balance 370 540 - Medications Medications: Current Medications Albuterol/Ipratropium (Duoneb 3 Mg/0.5 Mg (3 Ml) Ud) 3 ml INH RQ4 [facility] Last Admin: 01/25/18 12:10 Dose: 3 ml Amlodipine Besylate (Norvasc) 5 mg PO DAILY [facility] Last Admin: 01/25/18 10:00 Dose: Not Given Calcium Acetate (Phoslo) 667 mg PO TIDCC [facility] Last Admin: 01/25/18 11:18 Dose: 667 mg Clonidine HCl (Catapres) 0.1 mg PO TID [facility] Last Admin: 01/25/18 10:01 Dose: Not Given Epoetin Kevin (Procrit) 4,000 unit IV MWF [facility] Last Admin: 01/24/18 15:33 Dose: 4,000 unit Heparin Sodium (Porcine) (Heparin) 5,000 units SC Q12 [facility] Last Admin: 01/25/18 10:00 Dose: 5,000 units Insulin Aspart (Novolog) 0 unit SC ACHS [facility] PRN Reason: Protocol Last Admin: 01/25/18 11:18 Dose: 8 unit Insulin Glargine (Lantus) 12 unit SC Q12H [facility] Last Admin: 01/25/18 08:04 Dose: 12 units Losartan Potassium (Cozaar) 100 mg PO DAILY [facility] Last Admin: 01/25/18 10:01 Dose: Not Given Metoclopramide HCl (Reglan) 10 mg IVP Q6 PRN PRN Reason: Nausea/Vomiting Metoprolol Tartrate (Lopressor) 50 mg PO BID [facility] Last Admin: 01/25/18 10:00 Dose: Not Given Pantoprazole Sodium (Protonix Inj) 40 mg IVP DAILY [facility] Last Admin: 01/25/18 09:59 Dose: 40 mg Rosuvastatin Calcium (Crestor) 5 mg PO HS [facility] Last Admin: 01/24/18 22:16 Dose: Not Given - Labs Labs: 01/25/18 06:03 01/25/18 06:03 PT 13.7 SECONDS (9.7-12.2) H 01/24/18 06:20 INR 1.2 01/24/18 06:20 APTT 35 SECONDS (21-34) H 01/24/18 06:20
--- NOTE | 2018-01-25 17:25 | CP.PCM.PN ---
Subjective - Date & Time of Evaluation Date of Evaluation: 01/25/18 Time of Evaluation: 17:25 - Subjective Subjective: Patient is sitting up in Not in any distress. Right shoulder pain noted. Right-sided chest discomfort noted. Vital signs reviewed No neck vein distention noted Chest good air entry bilaterally, no wheezing or rales noted CVS regular heart sound, no murmur noted Abdomen soft, nontender. Extremities no pedal edema [employer] alert awake oriented -3, no functional neurological deficit Likely stable. Elevated blood sugar noted. We'll adjust the Lantus. Assessment and recommendation: 42-year-old female admitted with acute respiratory failure intubated, extubated. Currently doing well. Transfer to telemetry. Objective - Vital Signs/Intake and Output Vital Signs (last 24 hours): Temp Pulse Resp BP Pulse Ox 98.4 F 103 H 17 156/83 H 95 01/25/18 16:00 01/25/18 15:57 01/25/18 15:57 01/25/18 15:57 01/25/18 15:57 Intake and Output: 01/25/18 01/25/18 06:59 18:59 Intake Total 370 660 Output Total 0 Balance 370 660 - Medications Medications: Current Medications Albuterol/Ipratropium (Duoneb 3 Mg/0.5 Mg (3 Ml) Ud) 3 ml INH RQ4 [facility] Last Admin: 01/25/18 17:06 Dose: 3 ml Amlodipine Besylate (Norvasc) 5 mg PO DAILY [facility] Last Admin: 01/25/18 10:00 Dose: Not Given Calcium Acetate (Phoslo) 667 mg PO TIDCC [facility] Last Admin: 01/25/18 16:13 Dose: 667 mg Clonidine HCl (Catapres) 0.1 mg PO TID [facility] Last Admin: 01/25/18 14:50 Dose: Not Given Epoetin Kevin (Procrit) 4,000 unit IV MWF [facility] Last Admin: 01/24/18 15:33 Dose: 4,000 unit Famotidine (Pepcid) 20 mg PO DAILY [facility] Heparin Sodium (Porcine) (Heparin) 5,000 units SC Q12 [facility] Last Admin: 01/25/18 10:00 Dose: 5,000 units Insulin Aspart (Novolog) 0 unit SC ACHS [facility] PRN Reason: Protocol Last Admin: 01/25/18 16:13 Dose: 10 unit Insulin Glargine (Lantus) 20 unit SC Q12H [facility] Last Admin: 01/25/18 16:16 Dose: 20 u Losartan Potassium (Cozaar) 100 mg PO DAILY [facility] Last Admin: 01/25/18 10:01 Dose: Not Given Metoprolol Tartrate (Lopressor) 50 mg PO BID [facility] Last Admin: 01/25/18 10:00 Dose: Not Given Rosuvastatin Calcium (Crestor) 5 mg PO HS [facility] Last Admin: 01/24/18 22:16 Dose: Not Given - Labs Labs: 01/25/18 06:03 01/25/18 06:03 PT 13.7 SECONDS (9.7-12.2) H 01/24/18 06:20 INR 1.2 01/24/18 06:20 APTT 35 SECONDS (21-34) H 01/24/18 06:20
[2018-01-26] MEDS: Albuterol-Ipratrop 3 mg / 0.5 (3 ml) UD INH SCH ×6 (00:53→19:24)
[2018-01-26] MEDS: (Lantus) Insulin Glargine, Recombinant SC SCH ×2 (04:54→16:11)
[2018-01-26 05:42] LABS: CEA PLEURAL FLUID 1.2 ng/mL (<10.0)
[2018-01-26 05:58] LABS: BASO # 0.1 K/uL (0.0-0.2); EOS # 0.5 K/uL (0.0-0.7); EOS % 4.7 % (0.0-4.0); HEMOGLOBIN 10.6 g/dL (11.0-16.0); LYMPH # 1.8 K/uL (1.0-4.3); LYMPH % 18.2 % (20.0-40.0); MEAN CORPUSCULAR HEMOGLOBIN 28.1 pg (27.0-31.0); MEAN CORPUSCULAR HGB CONC 32.3 g/dL (33.0-37.0); MEAN PLATELET VOLUME 9.9 fL (7.2-11.7); MONO # 1.9 K/uL (0.0-0.8); MONO % 19.2 % (0.0-10.0); NEUT # 5.5 K/uL (1.8-7.0); NEUT % 56.9 % (50.0-75.0); NRBC % 0.1 % (0.0-2.0); RBC 3.76 Mil/uL (3.80-5.20); RED CELL DISTRIBUTION WIDTH 15.7 % (11.5-14.5); WHITE BLOOD COUNT 9.7 K/uL (4.8-10.8)
[2018-01-26 06:15] LABS: CALCIUM 8.5 mg/dl (8.6-10.4)
[2018-01-26] MEDS: (Novolog) Insulin Aspart, Recombinant 100 u/ml 10 ml vial SC SCH ×4 (07:53→21:07)
--- NOTE | 2018-01-26 13:00 | CP.PCM.PN ---
Objective - Vital Signs/Intake and Output Vital Signs (last 24 hours): Temp Pulse Resp BP Pulse Ox 98.4 F 94 H 16 160/93 H 95 01/26/18 12:00 01/26/18 12:00 01/26/18 12:00 01/26/18 12:00 01/26/18 12:00 Intake and Output: 01/26/18 01/26/18 06:59 18:59 Intake Total Output Total Balance - Medications Medications: Current Medications Albuterol/Ipratropium (Duoneb 3 Mg/0.5 Mg (3 Ml) Ud) 3 ml INH RQ4 [facility] Last Admin: 01/26/18 11:27 Dose: 3 ml Amlodipine Besylate (Norvasc) 5 mg PO DAILY [facility] Last Admin: 01/26/18 09:56 Dose: 5 mg Calcium Acetate (Phoslo) 667 mg PO TIDCC [facility] Last Admin: 01/26/18 12:08 Dose: 667 mg Clonidine HCl (Catapres) 0.1 mg PO TID [facility] Last Admin: 01/26/18 09:57 Dose: 0.1 mg Epoetin Kevin (Procrit) 4,000 unit IV MWF [facility] Last Admin: 01/24/18 15:33 Dose: 4,000 unit Famotidine (Pepcid) 20 mg PO DAILY [facility] Last Admin: 01/26/18 09:56 Dose: 20 mg Heparin Sodium (Porcine) (Heparin) 5,000 units SC Q12 [facility] Last Admin: 01/26/18 09:57 Dose: 5,000 units Insulin Aspart (Novolog) 0 unit SC ACHS [facility] PRN Reason: Protocol Last Admin: 01/26/18 12:08 Dose: 8 unit Insulin Glargine (Lantus) 20 unit SC Q12H [facility] Last Admin: 01/26/18 04:54 Dose: 20 u Losartan Potassium (Cozaar) 100 mg PO DAILY [facility] Last Admin: 01/26/18 09:56 Dose: 100 mg Metoprolol Tartrate (Lopressor) 50 mg PO BID [facility] Last Admin: 01/26/18 09:57 Dose: 50 mg Rosuvastatin Calcium (Crestor) 5 mg PO HS [facility] Last Admin: 01/25/18 22:22 Dose: 5 mg - Labs Labs: 01/26/18 05:51 01/26/18 05:51 PT 13.7 SECONDS (9.7-12.2) H 01/24/18 06:20 INR 1.2 01/24/18 06:20 APTT 35 SECONDS (21-34) H 01/24/18 06:20
--- NOTE | 2018-01-26 16:16 | CP.PCM.PN ---
Subjective - Date & Time of Evaluation Date of Evaluation: 01/26/18 Time of Evaluation: 09:00 - Subjective Subjective: 42 yo female with Hx of ESRD was admitted with abd pain and suspicion of cholecystitis Cholecystitis eventually ruled out Hosp course complicated by resp failure secondary to large right effusion patient iss stable s/p thoracentesis and extubation all cultures so far negative has recurrent effusions CT Surg recc Pigtail Objective - Vital Signs/Intake and Output Vital Signs (last 24 hours): Temp Pulse Resp BP Pulse Ox 98.4 F 94 H 16 160/93 H 95 01/26/18 12:00 01/26/18 12:00 01/26/18 12:00 01/26/18 12:00 01/26/18 12:00 Intake and Output: 01/26/18 01/26/18 06:59 18:59 Intake Total 480 Output Total Balance 480 - Medications Medications: Current Medications Albuterol/Ipratropium (Duoneb 3 Mg/0.5 Mg (3 Ml) Ud) 3 ml INH RQ4 [facility] Last Admin: 01/26/18 11:27 Dose: 3 ml Amlodipine Besylate (Norvasc) 5 mg PO DAILY [facility] Last Admin: 01/26/18 09:56 Dose: 5 mg Calcium Acetate (Phoslo) 667 mg PO TIDCC [facility] Last Admin: 01/26/18 16:12 Dose: 667 mg Clonidine HCl (Catapres) 0.1 mg PO TID [facility] Last Admin: 01/26/18 13:49 Dose: 0.1 mg Epoetin Kevin (Procrit) 4,000 unit IV MWF [facility] Last Admin: 01/24/18 15:33 Dose: 4,000 unit Famotidine (Pepcid) 20 mg PO DAILY [facility] Last Admin: 01/26/18 09:56 Dose: 20 mg Heparin Sodium (Porcine) (Heparin) 5,000 units SC Q12 [facility] Last Admin: 01/26/18 09:57 Dose: 5,000 units Insulin Aspart (Novolog) 0 unit SC ACHS [facility] PRN Reason: Protocol Last Admin: 01/26/18 16:12 Dose: 6 unit Insulin Glargine (Lantus) 20 unit SC Q12H [facility] Last Admin: 01/26/18 16:11 Dose: 20 u Losartan Potassium (Cozaar) 100 mg PO DAILY [facility] Last Admin: 01/26/18 09:56 Dose: 100 mg Metoprolol Tartrate (Lopressor) 50 mg PO BID [facility] Last Admin: 01/26/18 09:57 Dose: 50 mg Rosuvastatin Calcium (Crestor) 5 mg PO HS [facility] Last Admin: 01/25/18 22:22 Dose: 5 mg - Labs Labs: 01/26/18 05:51 01/26/18 05:51 PT 13.7 SECONDS (9.7-12.2) H 01/24/18 06:20 INR 1.2 01/24/18 06:20 APTT 35 SECONDS (21-34) H 01/24/18 06:20 - Constitutional Appears: Non-toxic, Chronically Ill - Head Exam Head Exam: NORMOCEPHALIC - Eye Exam Eye Exam: PERRL. absent: Scleral icterus - ENT Exam ENT Exam: Mucous Membranes Dry - Neck Exam Neck Exam: absent: Lymphadenopathy - Respiratory Exam Respiratory Exam: Decreased Breath Sounds - Cardiovascular Exam Cardiovascular Exam: REGULAR RHYTHM - GI/Abdominal Exam GI & Abdominal Exam: Distended, Soft - Rectal Exam Rectal Exam: Deferred - Exam Exam: NORMAL INSPECTION - Extremities Exam Extremities Exam: absent: Pedal Edema - Back Exam Back Exam: absent: CVA tenderness (L), CVA tenderness (R), NORMAL INSPECTION - Neurological Exam Neurological Exam: Alert, Awake, Oriented x3 Neuro motor strength exam: Left Upper Extremity: 4, Right Upper Extremity: 4, Left Lower Extremity: 4, Right Lower Extremity: 4 - Psychiatric Exam Psychiatric exam: Normal Mood - Skin Skin Exam: Dry Assessment and Plan (1) Cholecystitis Status: Ruled-out (2) Abdominal pain Status: Acute (3) Hyperglycemia Status: Acute (4) JOSE MIGUEL (acute kidney injury) Status: Acute (5) Controlled type 2 diabetes mellitus with diabetic nephropathy Status: Acute (6) Diabetes mellitus with ESRD (end-stage renal disease) Status: Acute (7) Diabetes mellitus with chronic kidney disease Status: Acute (8) Diabetic nephropathy Status: Acute (9) ESRD (end stage renal disease) on dialysis Status: Acute (10) Intractable vomiting Status: Acute (11) CHF exacerbation Status: Acute (12) CHF (congestive heart failure) Status: Acute (13) Volume overload Status: Acute (14) Volume overload Status: Acute - Assessment and Plan (Free Text) Assessment: 42 yo female with Hx of ESRD was admitted with abd pain and suspicion of cholecystitis Cholecystitis eventually ruled out Hosp course complicated by resp failure secondary to large right effusion patient iss stable s/p thoracentesis and extubation all cultures so far negative has recurrent effusions CT Surg recc Pigtail
[2018-01-27] MEDS: Albuterol-Ipratrop 3 mg / 0.5 (3 ml) UD INH SCH ×5 (00:05→15:54)
[2018-01-27] MEDS: (Lantus) Insulin Glargine, Recombinant SC SCH ×3 (07:20→20:36)
[2018-01-27] MEDS: (Novolog) Insulin Aspart, Recombinant 100 u/ml 10 ml vial SC SCH ×3 (08:00→16:32)
--- NOTE | 2018-01-27 11:33 | CP.PCM.PN ---
Subjective - Date & Time of Evaluation Date of Evaluation: 01/27/18 Time of Evaluation: 11:30 - Subjective Subjective: more alert not dyspneic now no more n, v, f, chills stable dialysis 01/25 Objective - Vital Signs/Intake and Output Vital Signs (last 24 hours): Temp Pulse Resp BP Pulse Ox 97.7 F 8 L 20 135/78 100 01/27/18 08:00 01/27/18 10:00 01/27/18 08:00 01/27/18 08:00 01/27/18 08:00 - Medications Medications: Current Medications Albuterol/Ipratropium (Duoneb 3 Mg/0.5 Mg (3 Ml) Ud) 3 ml INH RQ4 [facility] Last Admin: 01/27/18 07:32 Dose: 3 ml Amlodipine Besylate (Norvasc) 5 mg PO DAILY [facility] Last Admin: 01/27/18 09:45 Dose: 5 mg Calcium Acetate (Phoslo) 667 mg PO TIDCC [facility] Last Admin: 01/27/18 08:04 Dose: 667 mg Clonidine HCl (Catapres) 0.1 mg PO TID [facility] Last Admin: 01/27/18 09:46 Dose: 0.1 mg Epoetin Kevin (Procrit) 4,000 unit IV MWF [facility] Last Admin: 01/24/18 15:33 Dose: 4,000 unit Famotidine (Pepcid) 20 mg PO DAILY [facility] Last Admin: 01/27/18 09:45 Dose: 20 mg Heparin Sodium (Porcine) (Heparin) 5,000 units SC Q12 [facility] Last Admin: 01/27/18 09:45 Dose: 5,000 units Insulin Aspart (Novolog) 0 unit SC ACHS [facility] PRN Reason: Protocol Last Admin: 01/27/18 08:00 Dose: 5 unit Insulin Glargine (Lantus) 20 unit SC Q12H [facility] Last Admin: 01/27/18 07:59 Dose: Not Given Losartan Potassium (Cozaar) 100 mg PO DAILY [facility] Last Admin: 01/27/18 09:45 Dose: 100 mg Metoprolol Tartrate (Lopressor) 50 mg PO BID [facility] Last Admin: 01/27/18 09:47 Dose: 50 mg Rosuvastatin Calcium (Crestor) 5 mg PO HS [facility] Last Admin: 01/26/18 21:06 Dose: 5 mg - Labs Labs: 01/26/18 05:51 01/26/18 05:51 PT 13.7 SECONDS (9.7-12.2) H 01/24/18 06:20 INR 1.2 01/24/18 06:20 APTT 35 SECONDS (21-34) H 01/24/18 06:20 - Constitutional Appears: No Acute Distress, Chronically Ill - Head Exam Head Exam: ATRAUMATIC, NORMAL INSPECTION - Eye Exam Eye Exam: EOMI, Normal appearance - Neck Exam Neck Exam: Normal Inspection. absent: Tenderness - Respiratory Exam Respiratory Exam: Clear to Ausculation Bilateral, NORMAL BREATHING PATTERN - Cardiovascular Exam Cardiovascular Exam: REGULAR RHYTHM, +S1 - GI/Abdominal Exam GI & Abdominal Exam: Soft. absent: Tenderness - Extremities Exam Extremities Exam: Normal Inspection. absent: Tenderness - Neurological Exam Neurological Exam: Awake, CN II-XII Intact - Skin Skin Exam: Dry, Warm Assessment and Plan (1) CHF exacerbation Status: Acute (2) Controlled type 2 diabetes mellitus with diabetic nephropathy Status: Acute - Assessment and Plan (Free Text) Plan: dialysis MWF with adequate UF
--- NOTE | 2018-01-27 13:54 | CP.PCM.PN ---
Subjective - Date & Time of Evaluation Date of Evaluation: 01/27/18 Time of Evaluation: 13:53 Objective - Vital Signs/Intake and Output Vital Signs (last 24 hours): Temp Pulse Resp BP Pulse Ox 97.9 F 93 H 18 135/78 97 01/27/18 12:00 01/27/18 12:00 01/27/18 12:00 01/27/18 08:00 01/27/18 12:00 Intake and Output: 01/27/18 01/27/18 06:59 18:59 Intake Total 300 Balance 300 - Medications Medications: Current Medications Albuterol/Ipratropium (Duoneb 3 Mg/0.5 Mg (3 Ml) Ud) 3 ml INH RQ4 [facility] Last Admin: 01/27/18 11:49 Dose: 3 ml Amlodipine Besylate (Norvasc) 5 mg PO DAILY [facility] Last Admin: 01/27/18 09:45 Dose: 5 mg Calcium Acetate (Phoslo) 667 mg PO TIDCC [facility] Last Admin: 01/27/18 11:54 Dose: 667 mg Clonidine HCl (Catapres) 0.1 mg PO TID [facility] Last Admin: 01/27/18 09:46 Dose: 0.1 mg Epoetin Kevin (Procrit) 4,000 unit IV MWF [facility] Last Admin: 01/24/18 15:33 Dose: 4,000 unit Famotidine (Pepcid) 20 mg PO DAILY [facility] Last Admin: 01/27/18 09:45 Dose: 20 mg Heparin Sodium (Porcine) (Heparin) 5,000 units SC Q12 [facility] Last Admin: 01/27/18 09:45 Dose: 5,000 units Insulin Aspart (Novolog) 0 unit SC ACHS [facility] PRN Reason: Protocol Last Admin: 01/27/18 11:52 Dose: 6 unit Insulin Glargine (Lantus) 20 unit SC Q12H [facility] Last Admin: 01/27/18 07:59 Dose: Not Given Losartan Potassium (Cozaar) 100 mg PO DAILY [facility] Last Admin: 01/27/18 09:45 Dose: 100 mg Metoprolol Tartrate (Lopressor) 50 mg PO BID [facility] Last Admin: 01/27/18 09:47 Dose: 50 mg Rosuvastatin Calcium (Crestor) 5 mg PO HS [facility] Last Admin: 01/26/18 21:06 Dose: 5 mg - Labs Labs: 01/26/18 05:51 01/26/18 05:51 PT 13.7 SECONDS (9.7-12.2) H 01/24/18 06:20 INR 1.2 01/24/18 06:20 APTT 35 SECONDS (21-34) H 01/24/18 06:20
[2018-01-27] MEDS: EPOETIN ALFA 4,000 UNIT/ML ML Dialysis IV SCH (22:40)
[2018-01-28] MEDS: Albuterol-Ipratrop 3 mg / 0.5 (3 ml) UD INH SCH ×4 (02:02→11:00)
[2018-01-28] MEDS: (Novolog) Insulin Aspart, Recombinant 100 u/ml 10 ml vial SC SCH ×5 (08:21→21:40)
[2018-01-28] MEDS: (Lantus) Insulin Glargine, Recombinant SC SCH ×2 (08:24→21:40)
--- NOTE | 2018-01-28 13:38 | CP.PCM.PN ---
Subjective - Date & Time of Evaluation Date of Evaluation: 01/28/18 Time of Evaluation: 13:36 - Subjective Subjective: on floor improved breathing denies any chest pain c/o cough no n/v/d no fevers/chills Objective - Vital Signs/Intake and Output Vital Signs (last 24 hours): Temp Pulse Resp BP Pulse Ox 98.6 F 103 H 20 137/67 100 01/28/18 07:00 01/28/18 07:00 01/28/18 07:00 01/28/18 07:00 01/28/18 07:00 - Medications Medications: Current Medications Amlodipine Besylate (Norvasc) 5 mg PO DAILY [facility] Last Admin: 01/28/18 10:11 Dose: 5 mg Calcium Acetate (Phoslo) 667 mg PO TIDCC [facility] Last Admin: 01/28/18 12:16 Dose: 667 mg Clonidine HCl (Catapres) 0.1 mg PO TID [facility] Last Admin: 01/28/18 13:14 Dose: 0.1 mg Epoetin Kevin (Procrit) 4,000 unit IV MWF [facility] Last Admin: 01/27/18 22:40 Dose: 4,000 unit Famotidine (Pepcid) 20 mg PO DAILY [facility] Last Admin: 01/28/18 10:11 Dose: 20 mg Heparin Sodium (Porcine) (Heparin) 5,000 units SC Q12 [facility] Last Admin: 01/28/18 10:17 Dose: 5,000 units Insulin Aspart (Novolog) 0 unit SC ACHS [facility] PRN Reason: Protocol Last Admin: 01/28/18 12:16 Dose: 4 unit Insulin Glargine (Lantus) 20 unit SC Q12H [facility] Last Admin: 01/28/18 08:24 Dose: 20 u Losartan Potassium (Cozaar) 100 mg PO DAILY [facility] Last Admin: 01/28/18 10:11 Dose: 100 mg Metoprolol Tartrate (Lopressor) 50 mg PO BID [facility] Last Admin: 01/28/18 10:11 Dose: 50 mg Rosuvastatin Calcium (Crestor) 5 mg PO HS [facility] Last Admin: 01/27/18 22:39 Dose: Not Given - Labs Labs: 01/26/18 05:51 01/26/18 05:51 PT 13.7 SECONDS (9.7-12.2) H 01/24/18 06:20 INR 1.2 01/24/18 06:20 APTT 35 SECONDS (21-34) H 01/24/18 06:20 - Constitutional Appears: No Acute Distress, Older Than Stated Age, Chronically Ill - Head Exam Head Exam: NORMAL INSPECTION, NORMOCEPHALIC - Eye Exam Eye Exam: Normal appearance, PERRL - ENT Exam ENT Exam: Mucous Membranes Moist, Normal Exam - Neck Exam Neck Exam: Full ROM, Normal Inspection - Respiratory Exam Respiratory Exam: Decreased Breath Sounds, NORMAL BREATHING PATTERN - Cardiovascular Exam Cardiovascular Exam: REGULAR RHYTHM, RRR - GI/Abdominal Exam GI & Abdominal Exam: Distended, Soft - Extremities Exam Extremities Exam: Normal Inspection Assessment and Plan (1) Abdominal pain Status: Acute (2) Hyperglycemia Status: Acute (3) Anemia Status: Acute (4) ESRD (end stage renal disease) on dialysis Status: Acute (5) Hypertension associated with chronic kidney disease due to type 1 diabetes mellitus Status: Acute - Assessment and Plan (Free Text) Assessment: maintain hd mwf aggressive uf as tolerated pulmonary management
--- NOTE | 2018-01-28 15:50 | CP.PCM.PN ---
Subjective - Date & Time of Evaluation Date of Evaluation: 01/28/18 Time of Evaluation: 15:50 Objective - Vital Signs/Intake and Output Vital Signs (last 24 hours): Temp Pulse Resp BP Pulse Ox 98.6 F 103 H 20 137/67 100 01/28/18 07:00 01/28/18 07:00 01/28/18 07:00 01/28/18 07:00 01/28/18 07:00 Intake and Output: 01/28/18 01/28/18 06:59 18:59 Intake Total 480 Balance 480 - Medications Medications: Current Medications Amlodipine Besylate (Norvasc) 5 mg PO DAILY [facility] Last Admin: 01/28/18 10:11 Dose: 5 mg Calcium Acetate (Phoslo) 667 mg PO TIDCC [facility] Last Admin: 01/28/18 12:16 Dose: 667 mg Clonidine HCl (Catapres) 0.1 mg PO TID [facility] Last Admin: 01/28/18 13:14 Dose: 0.1 mg Epoetin Kevin (Procrit) 4,000 unit IV MWF [facility] Last Admin: 01/27/18 22:40 Dose: 4,000 unit Famotidine (Pepcid) 20 mg PO DAILY [facility] Last Admin: 01/28/18 10:11 Dose: 20 mg Heparin Sodium (Porcine) (Heparin) 5,000 units SC Q12 [facility] Last Admin: 01/28/18 10:17 Dose: 5,000 units Insulin Aspart (Novolog) 0 unit SC ACHS [facility] PRN Reason: Protocol Last Admin: 01/28/18 12:16 Dose: 4 unit Insulin Glargine (Lantus) 20 unit SC Q12H [facility] Last Admin: 01/28/18 08:24 Dose: 20 u Losartan Potassium (Cozaar) 100 mg PO DAILY [facility] Last Admin: 01/28/18 10:11 Dose: 100 mg Metoprolol Tartrate (Lopressor) 50 mg PO BID [facility] Last Admin: 01/28/18 10:11 Dose: 50 mg Rosuvastatin Calcium (Crestor) 5 mg PO HS [facility] Last Admin: 01/27/18 22:39 Dose: Not Given - Labs Labs: 01/26/18 05:51 01/26/18 05:51 PT 13.7 SECONDS (9.7-12.2) H 01/24/18 06:20 INR 1.2 01/24/18 06:20 APTT 35 SECONDS (21-34) H 01/24/18 06:20
[2018-01-29] MEDS: (Novolog) Insulin Aspart, Recombinant 100 u/ml 10 ml vial SC SCH ×4 (08:00→21:19)
[2018-01-29] MEDS: (Lantus) Insulin Glargine, Recombinant SC SCH ×2 (08:22→21:33)
[2018-01-29] MEDS: EPOETIN ALFA 4,000 UNIT/ML ML Dialysis IV SCH (09:16)
[2018-01-29] MEDS ORDERED: Oxycodone/Acetaminophen 5/325 mg Tab PO STA (12:17)
--- NOTE | 2018-01-29 13:01 | CP.PCM.PN ---
Subjective - Date & Time of Evaluation Date of Evaluation: 01/29/18 Time of Evaluation: 12:58 - Subjective Subjective: seen at dialysis tolerating UF ok- BP well controlled c/o LE cramps- possibly from excess UF no other complaint- not dyspneic Objective - Vital Signs/Intake and Output Vital Signs (last 24 hours): Temp Pulse Resp BP Pulse Ox 97.6 F 101 H 20 162/89 H 99 01/29/18 12:10 01/29/18 12:10 01/29/18 12:10 01/29/18 12:10 01/29/18 12:10 - Medications Medications: Current Medications Amlodipine Besylate (Norvasc) 5 mg PO DAILY [facility] Last Admin: 01/28/18 10:11 Dose: 5 mg Calcium Acetate (Phoslo) 667 mg PO TIDCC [facility] Last Admin: 01/29/18 08:21 Dose: 667 mg Clonidine HCl (Catapres) 0.1 mg PO TID [facility] Last Admin: 01/28/18 17:43 Dose: 0.1 mg Epoetin Kevin (Procrit) 4,000 unit IV MWF [facility] Last Admin: 01/29/18 09:16 Dose: 4,000 unit Famotidine (Pepcid) 20 mg PO DAILY [facility] Last Admin: 01/28/18 10:11 Dose: 20 mg Heparin Sodium (Porcine) (Heparin) 5,000 units SC Q12 [facility] Last Admin: 01/28/18 21:38 Dose: 5,000 units Insulin Aspart (Novolog) 0 unit SC ACHS [facility] PRN Reason: Protocol Last Admin: 01/29/18 08:00 Dose: 3 unit Insulin Glargine (Lantus) 20 unit SC Q12H [facility] Last Admin: 01/29/18 08:22 Dose: Not Given Losartan Potassium (Cozaar) 100 mg PO DAILY [facility] Last Admin: 01/28/18 10:11 Dose: 100 mg Metoprolol Tartrate (Lopressor) 50 mg PO BID [facility] Last Admin: 01/28/18 17:43 Dose: 50 mg Rosuvastatin Calcium (Crestor) 5 mg PO HS [facility] Last Admin: 01/28/18 21:38 Dose: 5 mg - Labs Labs: 01/26/18 05:51 01/26/18 05:51 PT 13.7 SECONDS (9.7-12.2) H 03/09/18 06:20 INR 1.2 01/24/18 06:20 APTT 35 SECONDS (21-34) H 01/24/18 06:20 - Constitutional Appears: No Acute Distress, Chronically Ill - Head Exam Head Exam: ATRAUMATIC, NORMAL INSPECTION - Eye Exam Eye Exam: EOMI, Normal appearance - Neck Exam Neck Exam: Normal Inspection. absent: Tenderness - Cardiovascular Exam Cardiovascular Exam: REGULAR RHYTHM, +S1 - GI/Abdominal Exam GI & Abdominal Exam: Soft. absent: Tenderness - Extremities Exam Extremities Exam: Normal Inspection. absent: Tenderness - Neurological Exam Neurological Exam: Alert, CN II-XII Intact - Skin Skin Exam: Dry, Warm Assessment and Plan (1) CHF exacerbation Status: Acute (2) Controlled type 2 diabetes mellitus with diabetic nephropathy Status: Acute - Assessment and Plan (Free Text) Plan: Decrease UF establish new EDW same BP meds
--- NOTE | 2018-01-29 16:16 | CP.PCM.PN ---
Subjective - Date & Time of Evaluation Date of Evaluation: 01/29/18 Time of Evaluation: 07:00 - Subjective Subjective: tolerating UF ok- BP well controlled AFEBRILE no other complaint- not dyspneic Objective - Vital Signs/Intake and Output Vital Signs (last 24 hours): Temp Pulse Resp BP Pulse Ox 98.5 F 101 H 20 163/83 H 99 01/29/18 13:57 01/29/18 13:57 01/29/18 13:57 01/29/18 13:57 01/29/18 13:57 Intake and Output: 01/29/18 01/29/18 06:59 18:59 Intake Total 300 Balance 300 - Medications Medications: Current Medications Amlodipine Besylate (Norvasc) 5 mg PO DAILY [facility] Last Admin: 01/29/18 13:59 Dose: 5 mg Calcium Acetate (Phoslo) 667 mg PO TIDCC [facility] Last Admin: 01/29/18 13:59 Dose: 667 mg Clonidine HCl (Catapres) 0.1 mg PO TID [facility] Last Admin: 01/29/18 13:59 Dose: 0.1 mg Epoetin Kevin (Procrit) 4,000 unit IV MWF [facility] Last Admin: 01/29/18 09:16 Dose: 4,000 unit Famotidine (Pepcid) 20 mg PO DAILY [facility] Last Admin: 01/29/18 13:59 Dose: 20 mg Heparin Sodium (Porcine) (Heparin) 5,000 units SC Q12 [facility] Last Admin: 01/29/18 10:00 Dose: Not Given Insulin Aspart (Novolog) 0 unit SC [facility] PRN Reason: Protocol Last Admin: 01/29/18 11:30 Dose: Not Given Insulin Glargine (Lantus) 20 unit SC Q12H [facility] Last Admin: 01/29/18 08:22 Dose: Not Given Losartan Potassium (Cozaar) 100 mg PO DAILY [facility] Last Admin: 01/29/18 13:59 Dose: 100 mg Metoprolol Tartrate (Lopressor) 50 mg PO BID [facility] Last Admin: 01/29/18 10:00 Dose: Not Given Rosuvastatin Calcium (Crestor) 5 mg PO HS [facility] Last Admin: 01/28/18 21:38 Dose: 5 mg - Labs Labs: 01/26/18 05:51 01/26/18 05:51 PT 13.7 SECONDS (9.7-12.2) H 01/24/18 06:20 INR 1.2 01/24/18 06:20 APTT 35 SECONDS (21-34) H 01/24/18 06:20 - Constitutional Appears: Non-toxic, Chronically Ill - Head Exam Head Exam: NORMOCEPHALIC - Eye Exam Eye Exam: absent: Scleral icterus - ENT Exam ENT Exam: Mucous Membranes Dry - Neck Exam Neck Exam: absent: Lymphadenopathy - Respiratory Exam Respiratory Exam: Decreased Breath Sounds - Cardiovascular Exam Cardiovascular Exam: REGULAR RHYTHM - GI/Abdominal Exam GI & Abdominal Exam: Distended, Soft Assessment and Plan (1) Cholecystitis Status: Ruled-out (2) Abdominal pain Status: Acute (3) Hyperglycemia Status: Acute (4) JOSE MIGUEL (acute kidney injury) Status: Acute (5) Controlled type 2 diabetes mellitus with diabetic nephropathy Status: Acute (6) Diabetes mellitus with ESRD (end-stage renal disease) Status: Acute (7) Diabetes mellitus with chronic kidney disease Status: Acute (8) Diabetic nephropathy Status: Acute (9) ESRD (end stage renal disease) on dialysis Status: Acute (10) Intractable vomiting Status: Acute (11) CHF exacerbation Status: Acute (12) CHF (congestive heart failure) Status: Acute (13) Volume overload Status: Acute (14) Volume overload Status: Acute
--- NOTE | 2018-01-29 17:54 | CP.PCM.PN ---
Subjective - Date & Time of Evaluation Date of Evaluation: 01/29/18 Time of Evaluation: 17:53 Objective - Vital Signs/Intake and Output Vital Signs (last 24 hours): Temp Pulse Resp BP Pulse Ox 98.5 F 98 H 20 117/65 96 01/29/18 15:00 01/29/18 15:00 01/29/18 15:00 01/29/18 15:00 01/29/18 15:00 Intake and Output: 01/29/18 01/29/18 06:59 18:59 Intake Total 300 Balance 300 - Medications Medications: Current Medications Amlodipine Besylate (Norvasc) 5 mg PO DAILY [facility] Last Admin: 01/29/18 13:59 Dose: 5 mg Calcium Acetate (Phoslo) 667 mg PO TIDCC [facility] Last Admin: 01/29/18 17:00 Dose: 667 mg Clonidine HCl (Catapres) 0.1 mg PO TID [facility] Last Admin: 01/29/18 13:59 Dose: 0.1 mg Epoetin Keivn (Procrit) 4,000 unit IV MWF [facility] Last Admin: 01/29/18 09:16 Dose: 4,000 unit Famotidine (Pepcid) 20 mg PO DAILY [facility] Last Admin: 01/29/18 13:59 Dose: 20 mg Heparin Sodium (Porcine) (Heparin) 5,000 units SC Q12 [facility] Last Admin: 01/29/18 10:00 Dose: Not Given Insulin Aspart (Novolog) 0 unit SC ACHS [facility] PRN Reason: Protocol Last Admin: 01/29/18 11:30 Dose: Not Given Insulin Glargine (Lantus) 20 unit SC Q12H [facility] Last Admin: 01/29/18 08:22 Dose: Not Given Losartan Potassium (Cozaar) 100 mg PO DAILY [facility] Last Admin: 01/29/18 13:59 Dose: 100 mg Metoprolol Tartrate (Lopressor) 50 mg PO BID [facility] Last Admin: 01/29/18 10:00 Dose: Not Given Rosuvastatin Calcium (Crestor) 5 mg PO HS [facility] Last Admin: 01/28/18 21:38 Dose: 5 mg - Labs Labs: 01/26/18 05:51 01/26/18 05:51 PT 13.7 SECONDS (9.7-12.2) H 03/09/18 06:20 INR 1.2 01/24/18 06:20 APTT 35 SECONDS (21-34) H 01/24/18 06:20
[2018-01-30] MEDS ORDERED: Oxycodone/Acetaminophen 5/325 mg Tab PO STA (00:22)
[2018-01-30] MEDS: (Novolog) Insulin Aspart, Recombinant 100 u/ml 10 ml vial SC SCH ×3 (08:06→17:02)
[2018-01-30] MEDS: (Lantus) Insulin Glargine, Recombinant SC SCH ×2 (08:10→21:45)
--- NOTE | 2018-01-30 09:59 | CP.PCM.PN ---
Subjective - Date & Time of Evaluation Date of Evaluation: 01/30/18 Time of Evaluation: 09:57 - Subjective Subjective: alert; not dyspneic now s/p dialysis 01/29- UF 3200ml BP controlled Objective - Vital Signs/Intake and Output Vital Signs (last 24 hours): Temp Pulse Resp BP Pulse Ox 97.9 F 89 20 118/76 100 01/30/18 07:10 01/30/18 07:10 01/30/18 07:10 01/30/18 07:10 01/30/18 07:10 Intake and Output: 01/30/18 01/30/18 06:59 18:59 Intake Total 200 Balance 200 - Medications Medications: Current Medications Amlodipine Besylate (Norvasc) 5 mg PO DAILY [facility] Last Admin: 01/29/18 13:59 Dose: 5 mg Calcium Acetate (Phoslo) 667 mg PO TIDCC [facility] Last Admin: 01/30/18 08:09 Dose: 667 mg Clonidine HCl (Catapres) 0.1 mg PO TID [facility] Last Admin: 01/29/18 18:11 Dose: 0.1 mg Epoetin Kevin (Procrit) 4,000 unit IV MWF [facility] Last Admin: 01/29/18 09:16 Dose: 4,000 unit Famotidine (Pepcid) 20 mg PO DAILY [facility] Last Admin: 01/29/18 13:59 Dose: 20 mg Gabapentin (Neurontin) 100 mg PO BID [facility] Heparin Sodium (Porcine) (Heparin) 5,000 units SC Q12 [facility] Last Admin: 01/29/18 21:29 Dose: 5,000 units Insulin Aspart (Novolog) 0 unit SC ACHS [facility] PRN Reason: Protocol Last Admin: 01/30/18 08:06 Dose: Not Given Insulin Glargine (Lantus) 20 unit SC Q12H [facility] Last Admin: 01/30/18 08:10 Dose: Not Given Losartan Potassium (Cozaar) 100 mg PO DAILY [facility] Last Admin: 01/29/18 13:59 Dose: 100 mg Metoprolol Tartrate (Lopressor) 50 mg PO BID [facility] Last Admin: 01/29/18 18:11 Dose: 50 mg Rosuvastatin Calcium (Crestor) 5 mg PO HS [facility] Last Admin: 01/29/18 21:35 Dose: 5 mg - Labs Labs: 01/26/18 05:51 03/11/18 05:51 PT 13.7 SECONDS (9.7-12.2) H 01/24/18 06:20 INR 1.2 01/24/18 06:20 APTT 35 SECONDS (21-34) H 01/24/18 06:20 - Constitutional Appears: No Acute Distress, Chronically Ill - Head Exam Head Exam: ATRAUMATIC, NORMAL INSPECTION - Eye Exam Eye Exam: EOMI, Normal appearance - Neck Exam Neck Exam: Normal Inspection. absent: Tenderness - Respiratory Exam Respiratory Exam: Clear to Ausculation Bilateral, NORMAL BREATHING PATTERN - Cardiovascular Exam Cardiovascular Exam: REGULAR RHYTHM, +S1 - GI/Abdominal Exam GI & Abdominal Exam: Soft. absent: Tenderness - Extremities Exam Extremities Exam: Normal Inspection. absent: Tenderness - Neurological Exam Neurological Exam: Alert, CN II-XII Intact - Skin Skin Exam: Dry, Warm Assessment and Plan (1) CHF exacerbation Status: Acute (2) Controlled type 2 diabetes mellitus with diabetic nephropathy Status: Acute - Assessment and Plan (Free Text) Plan: same UF with dialysis MWF Same BP meds
--- NOTE | 2018-01-30 15:25 | CP.PCM.PN ---
Subjective - Date & Time of Evaluation Date of Evaluation: 01/30/18 Time of Evaluation: 15:25 Objective - Vital Signs/Intake and Output Vital Signs (last 24 hours): Temp Pulse Resp BP Pulse Ox 97.9 F 89 20 118/76 100 01/30/18 07:10 01/30/18 07:10 01/30/18 07:10 01/30/18 07:10 01/30/18 07:10 Intake and Output: 01/30/18 01/30/18 06:59 18:59 Intake Total 200 Balance 200 - Medications Medications: Current Medications Amlodipine Besylate (Norvasc) 5 mg PO DAILY [facility] Last Admin: 01/30/18 10:09 Dose: 5 mg Calcium Acetate (Phoslo) 667 mg PO TIDCC [facility] Last Admin: 01/30/18 12:30 Dose: 667 mg Clonidine HCl (Catapres) 0.1 mg PO TID [facility] Last Admin: 01/30/18 13:43 Dose: 0.1 mg Epoetin Kevin (Procrit) 4,000 unit IV MWF [facility] Last Admin: 01/29/18 09:16 Dose: 4,000 unit Famotidine (Pepcid) 20 mg PO DAILY [facility] Last Admin: 01/30/18 10:07 Dose: 20 mg Gabapentin (Neurontin) 100 mg PO BID [facility] Last Admin: 01/30/18 10:07 Dose: 100 mg Heparin Sodium (Porcine) (Heparin) 5,000 units SC Q12 [facility] Last Admin: 01/30/18 10:19 Dose: 5,000 units Insulin Aspart (Novolog) 0 unit SC [facility] PRN Reason: Protocol Last Admin: 01/30/18 11:51 Dose: Not Given Insulin Glargine (Lantus) 20 unit SC Q12H [facility] Last Admin: 01/30/18 08:10 Dose: Not Given Losartan Potassium (Cozaar) 100 mg PO DAILY [facility] Last Admin: 01/30/18 10:07 Dose: 100 mg Metoprolol Tartrate (Lopressor) 50 mg PO BID [facility] Last Admin: 01/30/18 10:17 Dose: 50 mg Rosuvastatin Calcium (Crestor) 5 mg PO HS [facility] Last Admin: 01/29/18 21:35 Dose: 5 mg - Labs Labs: 01/26/18 05:51 01/26/18 05:51 PT 13.7 SECONDS (9.7-12.2) H 01/24/18 06:20 INR 1.2 01/24/18 06:20 APTT 35 SECONDS (21-34) H 01/24/18 06:20
--- NOTE | 2018-01-30 15:26 | RAD ---
HISTORY: f/u COMPARISON: Portable chest 01/24/2018. TECHNIQUE: Chest PA and lateral FINDINGS: LUNGS: Right center venous catheter has been removed. No left-sided infiltrate. Right pleural effusion is diminished with significant residual at the right base. Trace fluid is seen in the minor fissure once again. Underlying infiltrate not excluded the right base. No pneumothorax bilaterally. PLEURA: As above. CARDIOVASCULAR: Stable cardiomegaly. No definite pulmonary venous congestion. OSSEOUS STRUCTURES: No significant abnormalities. VISUALIZED UPPER ABDOMEN: Normal. OTHER FINDINGS: None. IMPRESSION: Diminished right pleural effusion. No pneumothorax bilaterally. Mild residual right pleural effusion noted. Underlying infiltrate not excluded the right base. None is seen at the left.
[2018-01-30 17:05] LABS: BASO # 0.1 K/uL (0.0-0.2); BASO % 0.9 % (0.0-2.0); EOS # 0.3 K/uL (0.0-0.7); EOS % 2.6 % (0.0-4.0); HEMOGLOBIN 10.4 g/dL (11.0-16.0); LYMPH # 1.8 K/uL (1.0-4.3); LYMPH % 17.1 % (20.0-40.0); MEAN CELL VOLUME 86.8 fL (81.0-99.0); MEAN CORPUSCULAR HEMOGLOBIN 28.6 pg (27.0-31.0); MEAN CORPUSCULAR HGB CONC 32.9 g/dL (33.0-37.0); MEAN PLATELET VOLUME 9.2 fL (7.2-11.7); MONO # 1.6 K/uL (0.0-0.8); MONO % 14.8 % (0.0-10.0); NEUT # 6.9 K/uL (1.8-7.0); NEUT % 64.6 % (50.0-75.0); RBC 3.65 Mil/uL (3.80-5.20); RED CELL DISTRIBUTION WIDTH 16.2 % (11.5-14.5); WHITE BLOOD COUNT 10.6 K/uL (4.8-10.8)
[2018-01-31] MEDS: Oxycodone/Acetaminophen 5/325 mg Tab PO PRN (06:59)
[2018-01-31] MEDS: (Novolog) Insulin Aspart, Recombinant 100 u/ml 10 ml vial SC SCH ×4 (07:41→21:33)
[2018-01-31] MEDS: (Lantus) Insulin Glargine, Recombinant SC SCH ×2 (07:42→20:55)
[2018-01-31] MEDS: EPOETIN ALFA 4,000 UNIT/ML ML Dialysis IV SCH (10:19)
--- NOTE | 2018-01-31 12:42 | CP.PCM.PN ---
Subjective - Date & Time of Evaluation Date of Evaluation: 01/31/18 Time of Evaluation: 12:39 - Subjective Subjective: seen on dialysis tolerating well; BP moderately elevated to UF 2.5-3 kg not dyspneic; no new complaint Objective - Vital Signs/Intake and Output Vital Signs (last 24 hours): Temp Pulse Resp BP Pulse Ox 98.3 F 88 20 149/86 100 01/31/18 09:50 01/31/18 09:40 01/31/18 09:50 01/31/18 12:20 01/31/18 09:50 Intake and Output: 01/31/18 01/31/18 06:59 18:59 Intake Total 340 Balance 340 - Medications Medications: Current Medications Amlodipine Besylate (Norvasc) 5 mg PO DAILY [facility] Last Admin: 01/30/18 10:09 Dose: 5 mg Calcium Acetate (Phoslo) 667 mg PO TIDCC [facility] Last Admin: 01/31/18 07:43 Dose: 667 mg Clonidine HCl (Catapres) 0.1 mg PO TID [facility] Last Admin: 01/31/18 10:00 Dose: Not Given Epoetin Kevin (Procrit) 4,000 unit IV MWF [facility] Last Admin: 01/31/18 10:19 Dose: 4,000 unit Famotidine (Pepcid) 20 mg PO DAILY [facility] Last Admin: 01/30/18 10:07 Dose: 20 mg Gabapentin (Neurontin) 100 mg PO BID [facility] Last Admin: 01/30/18 17:07 Dose: 100 mg Heparin Sodium (Porcine) (Heparin) 5,000 units SC Q12 [facility] Last Admin: 01/31/18 10:00 Dose: Not Given Insulin Aspart (Novolog) 0 unit SC ACHS [facility] PRN Reason: Protocol Last Admin: 01/31/18 11:30 Dose: Not Given Insulin Glargine (Lantus) 20 unit SC Q12H [facility] Last Admin: 01/31/18 07:42 Dose: 20 u Losartan Potassium (Cozaar) 100 mg PO DAILY [facility] Last Admin: 01/30/18 10:07 Dose: 100 mg Metoprolol Tartrate (Lopressor) 50 mg PO BID [facility] Last Admin: 01/30/18 17:02 Dose: 50 mg Oxycodone/Acetaminophen (Percocet 5/325 Mg Tab) 1 tab PO Q12 PRN PRN Reason: Pain, severe (8-10) Stop: 02/02/18 17:23 Last Admin: 01/31/18 06:59 Dose: 1 tab Rosuvastatin Calcium (Crestor) 5 mg PO HS [facility] Last Admin: 01/30/18 21:44 Dose: 5 mg - Labs Labs: 01/30/18 16:58 01/26/18 05:51 PT 13.7 SECONDS (9.7-12.2) H 01/24/18 06:20 INR 1.2 01/24/18 06:20 APTT 35 SECONDS (21-34) H 01/24/18 06:20 - Constitutional Appears: No Acute Distress, Chronically Ill - Head Exam Head Exam: ATRAUMATIC, NORMAL INSPECTION - Eye Exam Eye Exam: EOMI, Normal appearance - Neck Exam Neck Exam: Normal Inspection. absent: Tenderness - Respiratory Exam Respiratory Exam: Clear to Ausculation Bilateral, NORMAL BREATHING PATTERN - Cardiovascular Exam Cardiovascular Exam: REGULAR RHYTHM, +S1 - GI/Abdominal Exam GI & Abdominal Exam: Soft. absent: Tenderness - Extremities Exam Extremities Exam: Normal Inspection. absent: Tenderness - Neurological Exam Neurological Exam: Alert, CN II-XII Intact - Skin Skin Exam: Dry, Warm Assessment and Plan (1) CHF exacerbation Status: Acute (2) Controlled type 2 diabetes mellitus with diabetic nephropathy Status: Acute - Assessment and Plan (Free Text) Plan: same aggressive fluid removal monitor BP dialysis MWF
--- NOTE | 2018-01-31 17:07 | CP.PCM.PN ---
Subjective - Date & Time of Evaluation Date of Evaluation: 01/31/18 Time of Evaluation: 17:07 Objective - Vital Signs/Intake and Output Vital Signs (last 24 hours): Temp Pulse Resp BP Pulse Ox 98.0 F 81 18 148/89 100 01/31/18 15:30 01/31/18 15:30 01/31/18 15:30 01/31/18 15:30 01/31/18 15:30 Intake and Output: 01/31/18 01/31/18 06:59 18:59 Intake Total 340 240 Balance 340 240 - Medications Medications: Current Medications Amlodipine Besylate (Norvasc) 5 mg PO DAILY [facility] Last Admin: 01/31/18 10:00 Dose: 5 mg Calcium Acetate (Phoslo) 667 mg PO TIDCC [facility] Last Admin: 01/31/18 12:45 Dose: 667 mg Clonidine HCl (Catapres) 0.1 mg PO TID [facility] Last Admin: 01/31/18 14:00 Dose: Not Given Epoetin Kevin (Procrit) 4,000 unit IV MWF [facility] Last Admin: 01/31/18 10:19 Dose: 4,000 unit Famotidine (Pepcid) 20 mg PO DAILY [facility] Last Admin: 01/31/18 10:00 Dose: 20 mg Gabapentin (Neurontin) 100 mg PO BID [facility] Last Admin: 01/31/18 10:00 Dose: 100 mg Heparin Sodium (Porcine) (Heparin) 5,000 units SC Q12 [facility] Last Admin: 01/31/18 10:00 Dose: Not Given Insulin Aspart (Novolog) 0 unit SC ACHS [facility] PRN Reason: Protocol Last Admin: 01/31/18 11:30 Dose: Not Given Insulin Glargine (Lantus) 20 unit SC Q12H [facility] Last Admin: 01/31/18 07:42 Dose: 20 u Losartan Potassium (Cozaar) 100 mg PO DAILY [facility] Last Admin: 01/31/18 10:00 Dose: 100 mg Metoprolol Tartrate (Lopressor) 50 mg PO BID [facility] Last Admin: 01/31/18 10:00 Dose: Not Given Oxycodone/Acetaminophen (Percocet 5/325 Mg Tab) 1 tab PO Q12 PRN PRN Reason: Pain, severe (8-10) Stop: 02/02/18 17:23 Last Admin: 01/31/18 06:59 Dose: 1 tab Rosuvastatin Calcium (Crestor) 5 mg PO HS [facility] Last Admin: 01/30/18 21:44 Dose: 5 mg - Labs Labs: 01/30/18 16:58 01/26/18 05:51 PT 13.7 SECONDS (9.7-12.2) H 01/24/18 06:20 INR 1.2 01/24/18 06:20 APTT 35 SECONDS (21-34) H 01/24/18 06:20
[2018-01-31] MEDS ORDERED: DiphenhydrAMINE 50 mg/ml Inj IVP SCH (22:00)
[2018-01-31] MEDS: DiphenhydrAMINE 50 mg/ml Inj IVP PRN (22:20)
[2018-02-01] MEDS: Oxycodone/Acetaminophen 5/325 mg Tab PO PRN (08:26)
[2018-02-01] MEDS: (Novolog) Insulin Aspart, Recombinant 100 u/ml 10 ml vial SC SCH ×4 (08:28→21:26)
[2018-02-01] MEDS: (Lantus) Insulin Glargine, Recombinant SC SCH ×2 (08:29→21:26)
--- NOTE | 2018-02-01 10:03 | CP.PCM.PN ---
Subjective - Date & Time of Evaluation Date of Evaluation: 02/01/18 Time of Evaluation: 10:01 - Subjective Subjective: s/p dialysis 01/31- removed 2400ml fluid BP better controlled now feels better advised to limit fluid intake Objective - Vital Signs/Intake and Output Vital Signs (last 24 hours): Temp Pulse Resp BP Pulse Ox 98.4 F 94 H 18 145/87 100 02/01/18 07:30 02/01/18 07:30 02/01/18 07:30 02/01/18 07:30 02/01/18 07:30 Intake and Output: 02/01/18 02/01/18 06:59 18:59 Intake Total 250 Balance 250 - Medications Medications: Current Medications Amlodipine Besylate (Norvasc) 5 mg PO DAILY [facility] Last Admin: 02/01/18 09:58 Dose: 5 mg Calcium Acetate (Phoslo) 667 mg PO TIDCC [facility] Last Admin: 02/01/18 08:25 Dose: 667 mg Clonidine HCl (Catapres) 0.1 mg PO TID [facility] Last Admin: 02/01/18 09:59 Dose: Not Given Diphenhydramine HCl (Benadryl) 25 mg IVP Q8H PRN PRN Reason: Itching / Pruritus Last Admin: 01/31/18 22:20 Dose: 25 mg Epoetin Kevin (Procrit) 4,000 unit IV MWF [facility] Last Admin: 01/31/18 10:19 Dose: 4,000 unit Famotidine (Pepcid) 20 mg PO DAILY [facility] Last Admin: 02/01/18 09:59 Dose: 20 mg Gabapentin (Neurontin) 100 mg PO BID [facility] Last Admin: 02/01/18 09:59 Dose: 100 mg Heparin Sodium (Porcine) (Heparin) 5,000 units SC Q12 [facility] Last Admin: 02/01/18 09:59 Dose: 5,000 units Insulin Aspart (Novolog) 0 unit SC ACHS [facility] PRN Reason: Protocol Last Admin: 02/01/18 08:28 Dose: 2 unit Insulin Glargine (Lantus) 20 unit SC Q12H [facility] Last Admin: 02/01/18 08:29 Dose: 20 u Losartan Potassium (Cozaar) 100 mg PO DAILY [facility] Last Admin: 02/01/18 09:59 Dose: Not Given Metoprolol Tartrate (Lopressor) 50 mg PO BID [facility] Last Admin: 02/01/18 09:58 Dose: 50 mg Oxycodone/Acetaminophen (Percocet 5/325 Mg Tab) 1 tab PO Q12 PRN PRN Reason: Pain, severe (8-10) Stop: 02/02/18 17:23 Last Admin: 02/01/18 08:26 Dose: 1 tab Rosuvastatin Calcium (Crestor) 5 mg PO HS [facility] Last Admin: 01/31/18 21:25 Dose: 5 mg - Labs Labs: 01/30/18 16:58 01/26/18 05:51 PT 13.7 SECONDS (9.7-12.2) H 01/24/18 06:20 INR 1.2 01/24/18 06:20 APTT 35 SECONDS (21-34) H 01/24/18 06:20 - Constitutional Appears: No Acute Distress, Chronically Ill - Head Exam Head Exam: ATRAUMATIC, NORMAL INSPECTION - Eye Exam Eye Exam: EOMI, Normal appearance - Neck Exam Neck Exam: Normal Inspection. absent: Tenderness - Respiratory Exam Respiratory Exam: Rales, NORMAL BREATHING PATTERN - Cardiovascular Exam Cardiovascular Exam: REGULAR RHYTHM, +S1 - GI/Abdominal Exam GI & Abdominal Exam: Soft. absent: Tenderness - Extremities Exam Extremities Exam: Normal Inspection. absent: Tenderness - Neurological Exam Neurological Exam: Awake, CN II-XII Intact - Skin Skin Exam: Dry, Warm Assessment and Plan (1) CHF exacerbation Status: Acute (2) Controlled type 2 diabetes mellitus with diabetic nephropathy Status: Acute - Assessment and Plan (Free Text) Plan: increase UF next dialysis monitor BP dialysis MWF
[2018-02-02] MEDS: DiphenhydrAMINE 50 mg/ml Inj IVP PRN ×2 (00:54→13:51)
[2018-02-02] MEDS: (Novolog) Insulin Aspart, Recombinant 100 u/ml 10 ml vial SC SCH ×4 (08:20→21:19)
[2018-02-02] MEDS: (Lantus) Insulin Glargine, Recombinant SC SCH ×2 (08:38→21:18)
[2018-02-02] MEDS: Oxycodone/Acetaminophen 5/325 mg Tab PO PRN (09:44)
--- NOTE | 2018-02-02 12:52 | CP.PCM.PN ---
Subjective - Date & Time of Evaluation Date of Evaluation: 02/02/18 Time of Evaluation: 12:52 Objective - Vital Signs/Intake and Output Vital Signs (last 24 hours): Temp Pulse Resp BP Pulse Ox 98.8 F 90 20 142/82 100 02/02/18 08:00 02/02/18 08:00 02/02/18 08:00 02/02/18 08:00 02/02/18 08:00 Intake and Output: 02/02/18 02/02/18 06:59 18:59 Intake Total 240 Balance 240 - Medications Medications: Current Medications Amlodipine Besylate (Norvasc) 5 mg PO DAILY [facility] Last Admin: 02/02/18 09:37 Dose: 5 mg Calcium Acetate (Phoslo) 667 mg PO TIDCC [facility] Last Admin: 02/02/18 08:38 Dose: 667 mg Clonidine HCl (Catapres) 0.1 mg PO TID [facility] Last Admin: 02/02/18 09:37 Dose: 0.1 mg Diphenhydramine HCl (Benadryl) 25 mg IVP Q8H PRN PRN Reason: Itching / Pruritus Last Admin: 02/02/18 00:54 Dose: 25 mg Epoetin Kevin (Procrit) 4,000 unit IV MWF [facility] Last Admin: 01/31/18 10:19 Dose: 4,000 unit Famotidine (Pepcid) 20 mg PO DAILY [facility] Last Admin: 02/02/18 09:37 Dose: 20 mg Gabapentin (Neurontin) 100 mg PO BID [facility] Last Admin: 02/02/18 09:37 Dose: 100 mg Insulin Aspart (Novolog) 0 unit SC ACHS [facility] PRN Reason: Protocol Last Admin: 02/02/18 08:20 Dose: Not Given Insulin Glargine (Lantus) 20 unit SC Q12H [facility] Last Admin: 02/02/18 08:38 Dose: 20 u Losartan Potassium (Cozaar) 100 mg PO DAILY [facility] Last Admin: 02/02/18 09:37 Dose: 100 mg Metoprolol Tartrate (Lopressor) 50 mg PO BID [facility] Last Admin: 02/02/18 09:42 Dose: 50 mg Oxycodone/Acetaminophen (Percocet 5/325 Mg Tab) 1 tab PO Q12 PRN PRN Reason: Pain, severe (8-10) Stop: 02/02/18 17:23 Last Admin: 02/02/18 09:44 Dose: 1 tab Rosuvastatin Calcium (Crestor) 5 mg PO HS [facility] Last Admin: 02/01/18 21:25 Dose: 5 mg - Labs Labs: 01/30/18 16:58 01/26/18 05:51 PT 13.7 SECONDS (9.7-12.2) H 01/24/18 06:20 INR 1.2 01/24/18 06:20 APTT 35 SECONDS (21-34) H 01/24/18 06:20
[2018-02-03] MEDS: (Novolog) Insulin Aspart, Recombinant 100 u/ml 10 ml vial SC SCH ×5 (07:30→22:34)
[2018-02-03] MEDS: (Lantus) Insulin Glargine, Recombinant SC SCH ×2 (08:47→13:05)
[2018-02-03] MEDS: DiphenhydrAMINE 50 mg/ml Inj IVP PRN ×2 (08:56→20:09)
[2018-02-03] MEDS: EPOETIN ALFA 4,000 UNIT/ML ML Dialysis IV SCH (11:32)
--- NOTE | 2018-02-03 11:41 | CP.PCM.PN ---
Subjective - Date & Time of Evaluation Date of Evaluation: 02/03/18 Time of Evaluation: 11:38 - Subjective Subjective: Seen at dialysis, BP better controlled less dyspneic last CXR without CHF, less right pleural effusion tolerating UF 2500ml Objective - Vital Signs/Intake and Output Vital Signs (last 24 hours): Temp Pulse Resp BP Pulse Ox 98.2 F 90 18 123/73 100 02/03/18 07:00 02/03/18 07:30 02/03/18 07:00 02/03/18 07:00 02/03/18 07:00 Intake and Output: 02/03/18 02/03/18 06:59 18:59 Intake Total 100 Balance 100 - Medications Medications: Current Medications Amlodipine Besylate (Norvasc) 5 mg PO DAILY [facility] Last Admin: 02/02/18 09:37 Dose: 5 mg Calcium Acetate (Phoslo) 667 mg PO TIDCC [facility] Last Admin: 02/03/18 07:42 Dose: 667 mg Diphenhydramine HCl (Benadryl) 25 mg IVP Q8H PRN PRN Reason: Itching / Pruritus Last Admin: 02/03/18 08:56 Dose: 25 mg Epoetin Kevin (Procrit) 4,000 unit IV MWF [facility] Last Admin: 02/03/18 11:32 Dose: 4,000 unit Famotidine (Pepcid) 20 mg PO DAILY [facility] Last Admin: 02/02/18 09:37 Dose: 20 mg Gabapentin (Neurontin) 100 mg PO BID [facility] Last Admin: 02/03/18 06:16 Dose: 100 mg Insulin Aspart (Novolog) 0 unit SC ACHS [facility] PRN Reason: Protocol Last Admin: 02/03/18 08:00 Dose: 1 unit Insulin Glargine (Lantus) 20 unit SC Q12H [facility] Last Admin: 02/03/18 08:47 Dose: Not Given Losartan Potassium (Cozaar) 100 mg PO DAILY [facility] Last Admin: 02/02/18 09:37 Dose: 100 mg Metoprolol Tartrate (Lopressor) 50 mg PO BID [facility] Last Admin: 02/02/18 17:40 Dose: 50 mg Rosuvastatin Calcium (Crestor) 5 mg PO HS [facility] Last Admin: 02/02/18 21:20 Dose: 5 mg - Labs Labs: 01/30/18 16:58 01/26/18 05:51 PT 13.7 SECONDS (9.7-12.2) H 01/24/18 06:20 INR 1.2 01/24/18 06:20 APTT 35 SECONDS (21-34) H 01/24/18 06:20 - Constitutional Appears: No Acute Distress, Chronically Ill - Head Exam Head Exam: ATRAUMATIC, NORMAL INSPECTION - Eye Exam Eye Exam: EOMI, Normal appearance - Neck Exam Neck Exam: Normal Inspection. absent: Tenderness - Respiratory Exam Respiratory Exam: Clear to Ausculation Bilateral, NORMAL BREATHING PATTERN - Cardiovascular Exam Cardiovascular Exam: REGULAR RHYTHM, +S1 - GI/Abdominal Exam GI & Abdominal Exam: Soft. absent: Tenderness - Extremities Exam Extremities Exam: Normal Inspection. absent: Tenderness - Neurological Exam Neurological Exam: Alert - Skin Skin Exam: Dry, Warm Assessment and Plan (1) CHF exacerbation Status: Acute (2) Controlled type 2 diabetes mellitus with diabetic nephropathy Status: Acute - Assessment and Plan (Free Text) Plan: same UF with dialysis dialysis MWF same BP control
[2018-02-03] MEDS ORDERED: Oxycodone/Acetaminophen 5/325 mg Tab PO ONE (14:30)
--- NOTE | 2018-02-03 15:06 | CP.PCM.PN ---
Subjective - Date & Time of Evaluation Date of Evaluation: 02/03/18 Time of Evaluation: 14:00 - Subjective Subjective: Patient seen today after HD denies any chest pain, sob, abdminal pain, N/V/ c/ o pain to the lower extremities s/p HD today Objective - Vital Signs/Intake and Output Vital Signs (last 24 hours): Temp Pulse Resp BP Pulse Ox 98.7 F 90 15 146/88 100 02/03/18 12:15 02/03/18 12:15 02/03/18 12:15 02/03/18 12:15 02/03/18 12:15 Intake and Output: 02/03/18 02/03/18 06:59 18:59 Intake Total 100 Balance 100 - Medications Medications: Current Medications Amlodipine Besylate (Norvasc) 5 mg PO DAILY [facility] Last Admin: 02/03/18 10:00 Dose: Not Given Calcium Acetate (Phoslo) 667 mg PO TIDCC [facility] Last Admin: 02/03/18 12:00 Dose: 667 mg Diphenhydramine HCl (Benadryl) 25 mg IVP Q8H PRN PRN Reason: Itching / Pruritus Last Admin: 02/03/18 08:56 Dose: 25 mg Epoetin Kevin (Procrit) 4,000 unit IV MWF [facility] Last Admin: 02/03/18 11:32 Dose: 4,000 unit Famotidine (Pepcid) 20 mg PO DAILY [facility] Last Admin: 02/03/18 10:00 Dose: Not Given Gabapentin (Neurontin) 100 mg PO BID [facility] Last Admin: 02/03/18 10:00 Dose: Not Given Insulin Aspart (Novolog) 0 unit SC ACHS [facility] PRN Reason: Protocol Last Admin: 02/03/18 11:30 Dose: Not Given Insulin Glargine (Lantus) 15 unit SC Q12H [facility] Last Admin: 02/03/18 13:05 Dose: Not Given Losartan Potassium (Cozaar) 100 mg PO DAILY [facility] Last Admin: 02/03/18 10:00 Dose: Not Given Metoprolol Tartrate (Lopressor) 50 mg PO BID [facility] Last Admin: 02/03/18 10:00 Dose: Not Given Rosuvastatin Calcium (Crestor) 5 mg PO HS [facility] Last Admin: 02/02/18 21:20 Dose: 5 mg - Labs Labs: 03/15/18 16:58 01/26/18 05:51 PT 13.7 SECONDS (9.7-12.2) H 01/24/18 06:20 INR 1.2 01/24/18 06:20 APTT 35 SECONDS (21-34) H 01/24/18 06:20 Assessment and Plan - Assessment and Plan (Free Text) Assessment: 42 year old female with a past medical history of gastroparesis and chronic obstructive pulmonary disease (COPD) ESRD on HD admitted with abdominal pain and vomiting x2 days. s/p intubation an d extubation for resp. failure Patient clinically improved rep. CXR - resolution of pleural effusion patient accepted at [facility] for rehab and pt in agreement temp checked before discharge and noted 100.8 will hold discharge for now and monitor for 24 hrs will repeat septic work up and re call Dr. Arnold for any needs for antibiotics The above plan discussed with Dr. Walker and agrees with plan
--- NOTE | 2018-02-03 16:43 | RAD ---
HISTORY: febrile r/o pneumonia COMPARISON: 01/30/2018 TECHNIQUE: Chest PA and lateral FINDINGS: LUNGS: Progressive consolidative change lesser infiltrate primarily affecting right lower lobe. PLEURA: Increasing right pleural effusion. CARDIOVASCULAR: Normal. OSSEOUS STRUCTURES: No significant abnormalities. VISUALIZED UPPER ABDOMEN: Normal. OTHER FINDINGS: None. IMPRESSION: Worsening infiltrates/right pleural effusion.
[2018-02-03] MEDS ORDERED: Vancomycin 1 gm/NS 200 ml 1 GM/200 ML BAG IVPB ONE (17:00)
[2018-02-03] MEDS ORDERED: Piperacillin/Tazobact 3.375 GM in Sodium Chloride 100 ML IVPB SCH (18:00)
[2018-02-03] MEDS: Piperacill/Tazo 2.25gm in Dex 2.25 GM/50 ML BAG IVPB SCH ×2 (18:50→22:34)
--- NOTE | 2018-02-03 20:03 | CP.PCM.PN ---
Subjective - Date & Time of Evaluation Date of Evaluation: 02/03/18 Time of Evaluation: 20:03 Objective - Vital Signs/Intake and Output Vital Signs (last 24 hours): Temp Pulse Resp BP Pulse Ox 100.6 F H 102 H 20 162/84 H 100 02/03/18 15:56 02/03/18 15:56 02/03/18 15:56 02/03/18 15:56 02/03/18 15:56 Intake and Output: 02/03/18 02/04/18 18:59 06:59 Intake Total 200 Balance 200 - Medications Medications: Current Medications Amlodipine Besylate (Norvasc) 5 mg PO DAILY [facility] Last Admin: 02/03/18 10:00 Dose: Not Given Calcium Acetate (Phoslo) 667 mg PO TIDCC [facility] Last Admin: 02/03/18 17:42 Dose: 667 mg Diphenhydramine HCl (Benadryl) 25 mg IVP Q8H PRN PRN Reason: Itching / Pruritus Last Admin: 02/03/18 08:56 Dose: 25 mg Epoetin Kevin (Procrit) 4,000 unit IV MWF [facility] Last Admin: 02/03/18 11:32 Dose: 4,000 unit Famotidine (Pepcid) 20 mg PO DAILY [facility] Last Admin: 02/03/18 10:00 Dose: Not Given Gabapentin (Neurontin) 100 mg PO BID [facility] Last Admin: 02/03/18 17:42 Dose: 100 mg Piperacillin Sod/Tazobactam Sod (Zosyn 2.25 Gm Iv Premix) 2.25 gm in 50 mls @ 100 mls/hr IVPB Q6H [facility] Last Admin: 02/03/18 18:50 Dose: 100 mls/hr Insulin Aspart (Novolog) 0 unit SC ACHS [facility] PRN Reason: Protocol Last Admin: 02/03/18 17:42 Dose: 3 unit Insulin Glargine (Lantus) 15 unit SC Q12H [facility] Last Admin: 02/03/18 13:05 Dose: Not Given Losartan Potassium (Cozaar) 100 mg PO DAILY [facility] Last Admin: 02/03/18 10:00 Dose: Not Given Metoprolol Tartrate (Lopressor) 50 mg PO BID [facility] Last Admin: 02/03/18 17:42 Dose: 50 mg Rosuvastatin Calcium (Crestor) 5 mg PO HS [facility] Last Admin: 02/02/18 21:20 Dose: 5 mg - Labs Labs: 01/30/18 16:58 01/26/18 05:51 PT 13.7 SECONDS (9.7-12.2) H 01/24/18 06:20 INR 1.2 01/24/18 06:20 APTT 35 SECONDS (21-34) H 01/24/18 06:20
[2018-02-04] MEDS: (Lantus) Insulin Glargine, Recombinant SC SCH ×2 (01:39→13:39)
[2018-02-04] MEDS: Piperacill/Tazo 2.25gm in Dex 2.25 GM/50 ML BAG IVPB SCH ×4 (05:30→22:57)
[2018-02-04 07:40] LABS: BASO # 0.1 K/uL (0.0-0.2); BASO % 0.5 % (0.0-2.0); EOS # 0.4 K/uL (0.0-0.7); EOS % 2.9 % (0.0-4.0); HEMOGLOBIN 9.7 g/dL (11.0-16.0); LYMPH # 1.7 K/uL (1.0-4.3); LYMPH % 12.5 % (20.0-40.0); MEAN CELL VOLUME 87.8 fL (81.0-99.0); MEAN CORPUSCULAR HEMOGLOBIN 28.3 pg (27.0-31.0); MEAN CORPUSCULAR HGB CONC 32.2 g/dL (33.0-37.0); MEAN PLATELET VOLUME 9.1 fL (7.2-11.7); MONO # 1.6 K/uL (0.0-0.8); MONO % 11.5 % (0.0-10.0); NEUT # 10.2 K/uL (1.8-7.0); NEUT % 72.6 % (50.0-75.0); RBC 3.44 Mil/uL (3.80-5.20); RED CELL DISTRIBUTION WIDTH 16.3 % (11.5-14.5)
[2018-02-04] MEDS: (Novolog) Insulin Aspart, Recombinant 100 u/ml 10 ml vial SC SCH ×4 (08:16→21:45)
--- NOTE | 2018-02-04 10:43 | CP.PCM.PN ---
Subjective - Date & Time of Evaluation Date of Evaluation: 02/04/18 Time of Evaluation: 10:41 - Subjective Subjective: seen and examined notes reviewed dc held yesterday due to fever afebrile today bp stable no n/v/d/sob/cp/cough/f/c/dizziness/weakness/numbness/rash Objective - Vital Signs/Intake and Output Vital Signs (last 24 hours): Temp Pulse Resp BP Pulse Ox 98.9 F 78 18 120/71 97 02/04/18 07:20 02/04/18 07:20 02/04/18 07:20 02/04/18 07:20 02/04/18 07:20 Intake and Output: 02/04/18 02/04/18 06:59 18:59 Intake Total 500 Balance 500 - Medications Medications: Current Medications Amlodipine Besylate (Norvasc) 5 mg PO DAILY [facility] Last Admin: 02/04/18 10:17 Dose: 5 mg Calcium Acetate (Phoslo) 667 mg PO TIDCC [facility] Last Admin: 02/04/18 08:16 Dose: 667 mg Diphenhydramine HCl (Benadryl) 25 mg IVP Q8H PRN PRN Reason: Itching / Pruritus Last Admin: 02/03/18 20:09 Dose: 25 mg Epoetin Kevin (Procrit) 4,000 unit IV MWF [facility] Last Admin: 02/03/18 11:32 Dose: 4,000 unit Famotidine (Pepcid) 20 mg PO DAILY [facility] Last Admin: 02/04/18 10:17 Dose: 20 mg Gabapentin (Neurontin) 300 mg PO BID [facility] Last Admin: 02/04/18 10:17 Dose: 300 mg Piperacillin Sod/Tazobactam Sod (Zosyn 2.25 Gm Iv Premix) 2.25 gm in 50 mls @ 100 mls/hr IVPB Q6H [facility] Last Admin: 02/04/18 10:25 Dose: 100 mls/hr Insulin Aspart (Novolog) 0 unit SC ACHS [facility] PRN Reason: Protocol Last Admin: 02/04/18 08:16 Dose: 3 unit Insulin Glargine (Lantus) 15 unit SC Q12H [facility] Last Admin: 02/04/18 01:39 Dose: 15 units Losartan Potassium (Cozaar) 100 mg PO DAILY [facility] Last Admin: 02/04/18 10:17 Dose: 100 mg Metoprolol Tartrate (Lopressor) 50 mg PO BID [facility] Last Admin: 02/04/18 10:18 Dose: 50 mg Rosuvastatin Calcium (Crestor) 5 mg PO HS [facility] Last Admin: 02/03/18 22:33 Dose: 5 mg - Labs Labs: 02/04/18 07:31 01/26/18 05:51 PT 13.7 SECONDS (9.7-12.2) H 01/24/18 06:20 INR 1.2 01/24/18 06:20 APTT 35 SECONDS (21-34) H 01/24/18 06:20 - Constitutional Appears: Non-toxic, No Acute Distress, Chronically Ill - Head Exam Head Exam: NORMAL INSPECTION, NORMOCEPHALIC - Eye Exam Eye Exam: Normal appearance, PERRL - ENT Exam ENT Exam: Mucous Membranes Moist, Normal Exam, Normal Oropharynx - Neck Exam Neck Exam: Full ROM, Normal Inspection - Respiratory Exam Respiratory Exam: Decreased Breath Sounds, Wheezes, NORMAL BREATHING PATTERN - Cardiovascular Exam Cardiovascular Exam: REGULAR RHYTHM, RRR - GI/Abdominal Exam GI & Abdominal Exam: Distended, Soft - Extremities Exam Extremities Exam: Full ROM (lue avf), Normal Inspection - Neurological Exam Neurological Exam: Alert, Awake, Oriented x3 - Psychiatric Exam Psychiatric exam: Normal Affect, Normal Mood - Skin Skin Exam: Dry, Normal Color, Warm Assessment and Plan (1) Abdominal pain Status: Acute (2) Hyperglycemia Status: Acute (3) Anemia Status: Acute (4) ESRD (end stage renal disease) on dialysis Status: Acute (5) Hypertension associated with chronic kidney disease due to type 1 diabetes mellitus Status: Acute - Assessment and Plan (Free Text) Assessment: esrd on hd s/p chf / copd / respiratory failure maintain hd mwf [facility], will follow
--- NOTE | 2018-02-04 12:02 | CP.PCM.PN ---
Subjective - Date & Time of Evaluation Date of Evaluation: 02/04/18 Time of Evaluation: 08:00 - Subjective Subjective: dc held yesterday due to fever afebrile today bp stable c/o pain left foot- warm and tender ? fluctuance needs podiatry eval Objective - Vital Signs/Intake and Output Vital Signs (last 24 hours): Temp Pulse Resp BP Pulse Ox 98.9 F 78 18 120/71 97 02/04/18 07:20 02/04/18 07:20 02/04/18 07:20 02/04/18 07:20 02/04/18 07:20 Intake and Output: 02/04/18 02/04/18 06:59 18:59 Intake Total 500 Balance 500 - Medications Medications: Current Medications Amlodipine Besylate (Norvasc) 5 mg PO DAILY [facility] Last Admin: 02/04/18 10:17 Dose: 5 mg Calcium Acetate (Phoslo) 667 mg PO TIDCC [facility] Last Admin: 02/04/18 08:16 Dose: 667 mg Diphenhydramine HCl (Benadryl) 25 mg IVP Q8H PRN PRN Reason: Itching / Pruritus Last Admin: 02/03/18 20:09 Dose: 25 mg Epoetin Kevin (Procrit) 4,000 unit IV MWF [facility] Last Admin: 02/03/18 11:32 Dose: 4,000 unit Famotidine (Pepcid) 20 mg PO DAILY [facility] Last Admin: 02/04/18 10:17 Dose: 20 mg Gabapentin (Neurontin) 300 mg PO BID [facility] Last Admin: 02/04/18 10:17 Dose: 300 mg Piperacillin Sod/Tazobactam Sod (Zosyn 2.25 Gm Iv Premix) 2.25 gm in 50 mls @ 100 mls/hr IVPB Q6H [facility] Last Admin: 02/04/18 10:25 Dose: 100 mls/hr Insulin Aspart (Novolog) 0 unit SC ACHS [facility] PRN Reason: Protocol Last Admin: 02/04/18 08:16 Dose: 3 unit Insulin Glargine (Lantus) 15 unit SC Q12H [facility] Last Admin: 02/04/18 01:39 Dose: 15 units Losartan Potassium (Cozaar) 100 mg PO DAILY [facility] Last Admin: 02/04/18 10:17 Dose: 100 mg Metoprolol Tartrate (Lopressor) 50 mg PO BID [facility] Last Admin: 02/04/18 10:18 Dose: 50 mg Rosuvastatin Calcium (Crestor) 5 mg PO [facility] Last Admin: 02/03/18 22:33 Dose: 5 mg - Labs Labs: 02/04/18 07:31 01/26/18 05:51 PT 13.7 SECONDS (9.7-12.2) H 01/24/18 06:20 INR 1.2 01/24/18 06:20 APTT 35 SECONDS (21-34) H 01/24/18 06:20 - Constitutional Appears: Non-toxic, Cachectic, Chronically Ill - Head Exam Head Exam: NORMOCEPHALIC - Eye Exam Eye Exam: absent: Scleral icterus - ENT Exam ENT Exam: Mucous Membranes Dry - Neck Exam Neck Exam: absent: Lymphadenopathy - Respiratory Exam Respiratory Exam: Decreased Breath Sounds - Cardiovascular Exam Cardiovascular Exam: REGULAR RHYTHM - GI/Abdominal Exam GI & Abdominal Exam: Distended, Soft - Rectal Exam Rectal Exam: Deferred - Exam Exam: NORMAL INSPECTION - Extremities Exam Extremities Exam: Pedal Edema - Back Exam Back Exam: absent: CVA tenderness (L), CVA tenderness (R) - Neurological Exam Neurological Exam: Alert, Awake, Oriented x3 - Psychiatric Exam Psychiatric exam: Depressed - Skin Skin Exam: Dry Assessment and Plan (1) Cholecystitis Status: Ruled-out (2) Abdominal pain Status: Acute (3) Hyperglycemia Status: Acute (4) JOSE MIGUEL (acute kidney injury) Status: Acute (5) Controlled type 2 diabetes mellitus with diabetic nephropathy Status: Acute (6) Diabetes mellitus with ESRD (end-stage renal disease) Status: Acute (7) Diabetes mellitus with chronic kidney disease Status: Acute (8) Diabetic nephropathy Status: Acute (9) ESRD (end stage renal disease) on dialysis Status: Acute (10) Intractable vomiting Status: Acute (11) CHF exacerbation Status: Acute (12) CHF (congestive heart failure) Status: Acute (13) Volume overload Status: Acute (14) Volume overload Status: Acute
--- NOTE | 2018-02-04 14:58 | CP.PCM.PN ---
Subjective - Date & Time of Evaluation Date of Evaluation: 02/04/18 Time of Evaluation: 14:57 Objective - Vital Signs/Intake and Output Vital Signs (last 24 hours): Temp Pulse Resp BP Pulse Ox 98.9 F 94 H 18 120/71 97 02/04/18 07:20 02/04/18 07:47 02/04/18 07:20 02/04/18 07:20 02/04/18 07:20 Intake and Output: 02/04/18 02/04/18 06:59 18:59 Intake Total 500 Balance 500 - Medications Medications: Current Medications Amlodipine Besylate (Norvasc) 5 mg PO DAILY [facility] Last Admin: 02/04/18 10:17 Dose: 5 mg Calcium Acetate (Phoslo) 667 mg PO TIDCC [facility] Last Admin: 02/04/18 12:17 Dose: 667 mg Diphenhydramine HCl (Benadryl) 25 mg IVP Q8H PRN PRN Reason: Itching / Pruritus Last Admin: 02/03/18 20:09 Dose: 25 mg Epoetin Kevin (Procrit) 4,000 unit IV MWF [facility] Last Admin: 02/03/18 11:32 Dose: 4,000 unit Famotidine (Pepcid) 20 mg PO DAILY [facility] Last Admin: 02/04/18 10:17 Dose: 20 mg Gabapentin (Neurontin) 300 mg PO BID [facility] Last Admin: 02/04/18 10:17 Dose: 300 mg Piperacillin Sod/Tazobactam Sod (Zosyn 2.25 Gm Iv Premix) 2.25 gm in 50 mls @ 100 mls/hr IVPB Q6H [facility] Last Admin: 02/04/18 10:25 Dose: 100 mls/hr Vancomycin HCl 500 mg/ Sodium (Chloride) 100 mls @ 100 mls/hr IVPB MWF [facility] PRN Reason: Protocol Insulin Aspart (Novolog) 0 unit SC ACHS [facility] PRN Reason: Protocol Last Admin: 02/04/18 12:17 Dose: 2 unit Insulin Glargine (Lantus) 15 unit SC Q12H [facility] Last Admin: 02/04/18 13:39 Dose: 15 units Losartan Potassium (Cozaar) 100 mg PO DAILY [facility] Last Admin: 02/04/18 10:17 Dose: 100 mg Metoprolol Tartrate (Lopressor) 50 mg PO BID [facility] Last Admin: 02/04/18 10:18 Dose: 50 mg Rosuvastatin Calcium (Crestor) 5 mg PO [facility] Last Admin: 02/03/18 22:33 Dose: 5 mg - Labs Labs: 02/04/18 07:31 01/26/18 05:51 PT 13.7 SECONDS (9.7-12.2) H 01/24/18 06:20 INR 1.2 01/24/18 06:20 APTT 35 SECONDS (21-34) H 01/24/18 06:20
--- NOTE | 2018-02-04 16:41 | CP.PCM.CON ---
History of Present Illness - History of Present Illness History of Present Illness: 42yo female with a PMH of gastroparesis, COPD, HTN, DM and ESRD on HD (M,W,F) seen at bedside regarding left foot pain. Patient states that she has been having pain for about 1 week and it started after dialysis. Patient denies any pain to her right foot at this time Patient denies any trauma to the foot or ankle. Patient appears in NAD. She states that the pain is along the inside of her foot and along the top of her ankle. Patient denies any other pedal complaints at this time. She denies numbness, burning or tingling. Patient denies n/f/v/d/c/sob. Review of Systems - Constitutional Constitutional: As Per HPI Past Patient History - Infectious Disease Hx of Infectious Diseases: None - Past Medical History & Family History Past Medical History?: Yes Past Family History: Reviewed and not pertinent - Past Social History Smoking Status: Never Smoked Alcohol: None Drugs: Denies - CARDIAC Hx Hypercholesterolemia: Yes Hx Hypertension: Yes - PULMONARY Hx Chronic Obstructive Pulmonary Disease (COPD): Yes - NEUROLOGICAL HX Cerebrovascular Accident: Yes (01/2016, left sided weakness) - HEENT Hx HEENT Problems: Yes Other/Comment: Wears Eyeglasses - RENAL Hx Renal Failure: Yes (ESRD, CKD,) - ENDOCRINE/METABOLIC Hx Diabetes Mellitus Type 2: Yes - HEMATOLOGICAL/ONCOLOGICAL Hx Blood Disorders: Yes Hx Anemia: Yes Hx Blood Transfusions: Yes - INTEGUMENTARY Hx Dermatological Problems: No - MUSCULOSKELETAL/RHEUMATOLOGICAL Hx Musculoskeletal Disorders: Yes Hx Back Pain: Yes Hx Falls: Yes (3 months ago) Hx Spinal Stenosis: Yes Other/Comment: uses walker at home - GASTROINTESTINAL Hx Gastrointestinal Disorders: Yes Hx Gastritis: Yes Hx Nausea: Yes Other/Comment: Hx of gastroparesis as per pt. - GENITOURINARY/GYNECOLOGICAL Hx Genitourinary Disorders: No - PSYCHIATRIC Hx Substance Use: No - SURGICAL HISTORY Hx Surgeries: Yes Hx Section: Yes Other/Comment: Insertion Of HD Cath on the R Internal Jugular; left forearm graft for dialysis. - ANESTHESIA Hx Anesthesia: Yes Hx Anesthesia Reactions: No Hx Malignant Hyperthermia: No Has any member of the family had a problem w/ anesthesia?: No Meds Home Medications: Home Medication List Medication Instructions Recorded Confirmed Type Calcium Acetate [Phoslo] 667 mg PO TIDCC tab 02/03/18 Rx DiphenhydrAMINE [Benadryl] 25 mg IVP Q8H PRN vial 02/03/18 Rx Epoetin Kevin [Procrit] 4,000 unit IV MWF ml 02/03/18 Rx Famotidine [Pepcid] 20 mg PO DAILY tab 02/03/18 Rx Gabapentin [Neurontin] 100 mg PO BID cap 02/03/18 Rx Insulin Aspart, Recombinant 0 unit SC ACHS unit 02/03/18 Rx [Novolog] Insulin Glargine, Recombina 12 unit SC Q12H unit 02/03/18 Rx [Lantus] Losartan [Cozaar] 100 mg PO DAILY tab 02/03/18 Rx Metoprolol Tartrate [Lopressor] 50 mg PO BID tab 02/03/18 Rx Rosuvastatin Calcium [Crestor] 5 mg PO HS tab 02/03/18 Rx amLODIPine [Norvasc] 5 mg PO DAILY tab 02/03/18 Rx cloNIDine [Catapres] 0.1 mg PO TID tab 02/03/18 Rx oxyCODONE/Acetaminophen [Percocet 1 tab PO Q12 PRN #10 tab 02/03/18 Rx 5/325 mg Tab] Allergies/Adverse Reactions: Allergies Allergy/AdvReac Type Severity Reaction Status Date / Time No Known Allergies Allergy Verified 01/18/18 08:51 - Medications Medications: Current Medications Amlodipine Besylate (Norvasc) 5 mg PO DAILY [facility] Last Admin: 02/04/18 10:17 Dose: 5 mg Calcium Acetate (Phoslo) 667 mg PO TIDCC [facility] Last Admin: 02/04/18 12:17 Dose: 667 mg Diphenhydramine HCl (Benadryl) 25 mg IVP Q8H PRN PRN Reason: Itching / Pruritus Last Admin: 02/03/18 20:09 Dose: 25 mg Epoetin Kevin (Procrit) 4,000 unit IV MWF [facility] Last Admin: 02/03/18 11:32 Dose: 4,000 unit Famotidine (Pepcid) 20 mg PO DAILY [facility] Last Admin: 02/04/18 10:17 Dose: 20 mg Gabapentin (Neurontin) 300 mg PO BID [facility] Last Admin: 02/04/18 10:17 Dose: 300 mg Piperacillin Sod/Tazobactam Sod (Zosyn 2.25 Gm Iv Premix) 2.25 gm in 50 mls @ 100 mls/hr IVPB Q6H [facility] Last Admin: 02/04/18 10:25 Dose: 100 mls/hr Vancomycin HCl 500 mg/ Sodium (Chloride) 100 mls @ 100 mls/hr IVPB MWF [facility] PRN Reason: Protocol Insulin Aspart (Novolog) 0 unit SC ACHS [facility] PRN Reason: Protocol Last Admin: 02/04/18 12:17 Dose: 2 unit Insulin Glargine (Lantus) 15 unit SC Q12H [facility] Last Admin: 02/04/18 13:39 Dose: 15 units Losartan Potassium (Cozaar) 100 mg PO DAILY [facility] Last Admin: 02/04/18 10:17 Dose: 100 mg Metoprolol Tartrate (Lopressor) 50 mg PO BID [facility] Last Admin: 02/04/18 10:18 Dose: 50 mg Rosuvastatin Calcium (Crestor) 5 mg PO HS [facility] Last Admin: 02/03/18 22:33 Dose: 5 mg Physical Exam - Constitutional Appears: Well, Non-toxic, No Acute Distress - Extremities Exam Additional comments: left foot focused: vasc: lightly palpable DP pulse, non palpable PT pulse, TG wnl, CFT < 4 sec to all digits neuro: grossly diminished derm: no edema, no erythema, no open lesions, no interdigital maceration, no ascending cellulitis, no fluctuance, no acute clinical signs of infection ortho: pain on palpation to 1st MPJ, midfoot, and ankle jt. muscle power unable to assess at this time due to guarding - Neurological Exam Neurological exam: Alert, Oriented x3 Results - Vital Signs Recent Vital Signs: Last Vital Signs Temp 98.9 F 02/04/18 15:00 Pulse 83 02/04/18 15:00 Resp 20 02/04/18 15:00 BP 120/67 02/04/18 15:00 Pulse Ox 96 02/04/18 15:00 - Labs Result Diagrams: 02/04/18 07:31 01/26/18 05:51 Labs: Laboratory Results - last 24 hr 02/03/18 02/03/18 02/04/18 16:38 20:53 02:24 WBC RBC Hgb Hct MCV MCH MCHC RDW Plt Count MPV Neut % (Auto) Lymph % (Auto) Kay % (Auto) Eos % (Auto) Baso % (Auto) Neut # (Auto) Lymph # (Auto) Kay # (Auto) Eos # (Auto) Baso # (Auto) POC Glucose (mg/dL) 235 H 304 H 234 H 02/04/18 02/04/18 02/04/18 06:14 07:31 11:04 WBC 14.0 H RBC 3.44 L Hgb 9.7 L Hct 30.2 L MCV 87.8 MCH 28.3 MCHC 32.2 L RDW 16.3 H Plt Count 231 MPV 9.1 Neut % (Auto) 72.6 Lymph % (Auto) 12.5 L Kay % (Auto) 11.5 H Eos % (Auto) 2.9 Baso % (Auto) 0.5 Neut # (Auto) 10.2 H Lymph # (Auto) 1.7 Kay # (Auto) 1.6 H Eos # (Auto) 0.4 Baso # (Auto) 0.1 POC Glucose (mg/dL) 206 H 197 H 02/04/18 02/04/18 16:10 16:10 WBC RBC Hgb Hct MCV MCH MCHC RDW Plt Count MPV Neut % (Auto) Lymph % (Auto) Kay % (Auto) Eos % (Auto) Baso % (Auto) Neut # (Auto) Lymph # (Auto) Kay # (Auto) Eos # (Auto) Baso # (Auto) POC Glucose (mg/dL) 220 H 220 H Assessment & Plan - Assessment and Plan (Free Text) Assessment: 42 y/o female with pmhx of gastroparesis, COPD, HTN, DM and ESRD on HD (M,W,F), seen at bedside regarding left foot pain Plan: patient evaluated and chart reviewed discussed in detail with attending Dr. Harris labs and vitals reviewed; afebrile x rays of left foot reviewed and show no evidence of fracture or dislocation follow up uric acid levels to rule out gouty arthritis Rx multipodus offloading boots while bedbound podiatry will continue to monitor while patient remains in house thank you for the consultation
--- NOTE | 2018-02-04 17:12 | RAD ---
PROCEDURE: Left Foot Radiographs. HISTORY: pain left foot COMPARISON: None. FINDINGS: BONES: There is diffuse bone demineralization. There is no acute displaced fracture or bone destruction. JOINTS: Normal. SOFT TISSUES: There is moderate soft tissue swelling. OTHER FINDINGS: There are atherosclerotic vascular calcifications. IMPRESSION: No acute fracture, dislocation or bone destruction. Moderate soft tissue swelling in the foot was which may represent cellulitis in the appropriate clinical setting. If there is a clinical concern for osteomyelitis, an MRI without and with contrast may be performed for further evaluation.
[2018-02-04] MEDS: DiphenhydrAMINE 50 mg/ml Inj IVP PRN (22:56)
[2018-02-05] MEDS: (Lantus) Insulin Glargine, Recombinant SC SCH ×2 (01:28→18:36)
[2018-02-05] MEDS: Piperacill/Tazo 2.25gm in Dex 2.25 GM/50 ML BAG IVPB SCH ×2 (05:41→10:20)
[2018-02-05] MEDS: (Novolog) Insulin Aspart, Recombinant 100 u/ml 10 ml vial SC SCH ×4 (07:36→21:21)
--- NOTE | 2018-02-05 08:22 | CP.PCM.PN ---
Subjective - Date & Time of Evaluation Date of Evaluation: 02/05/18 Time of Evaluation: 08:19 - Subjective Subjective: still with decreased energy cough HD today noted multiple fluids at bedside no chest pain mild sob no nausea no vomiting no pain no itch no fever no headache Objective - Vital Signs/Intake and Output Vital Signs (last 24 hours): Temp Pulse Resp BP Pulse Ox 98.1 F 87 20 130/76 95 02/05/18 07:53 02/05/18 07:53 02/05/18 07:53 02/05/18 07:53 02/05/18 07:53 - Medications Medications: Current Medications Amlodipine Besylate (Norvasc) 5 mg PO DAILY [facility] Last Admin: 02/04/18 10:17 Dose: 5 mg Calcium Acetate (Phoslo) 667 mg PO TIDCC [facility] Last Admin: 02/05/18 08:17 Dose: 667 mg Diphenhydramine HCl (Benadryl) 25 mg IVP Q8H PRN PRN Reason: Itching / Pruritus Last Admin: 02/04/18 22:56 Dose: 25 mg Epoetin Kevin (Procrit) 4,000 unit IV MWF [facility] Last Admin: 02/03/18 11:32 Dose: 4,000 unit Famotidine (Pepcid) 20 mg PO DAILY [facility] Last Admin: 02/04/18 10:17 Dose: 20 mg Gabapentin (Neurontin) 300 mg PO BID [facility] Last Admin: 02/04/18 17:16 Dose: 300 mg Piperacillin Sod/Tazobactam Sod (Zosyn 2.25 Gm Iv Premix) 2.25 gm in 50 mls @ 100 mls/hr IVPB Q6H [facility] Last Admin: 02/05/18 05:41 Dose: 100 mls/hr Vancomycin HCl 500 mg/ Sodium (Chloride) 100 mls @ 100 mls/hr IVPB MWF [facility] PRN Reason: Protocol Insulin Aspart (Novolog) 0 unit SC ACHS [facility] PRN Reason: Protocol Last Admin: 02/05/18 07:36 Dose: Not Given Insulin Glargine (Lantus) 15 unit SC Q12H [facility] Last Admin: 02/05/18 01:28 Dose: 15 units Losartan Potassium (Cozaar) 100 mg PO DAILY [facility] Last Admin: 02/04/18 10:17 Dose: 100 mg Metoprolol Tartrate (Lopressor) 50 mg PO BID [facility] Last Admin: 02/04/18 17:16 Dose: 50 mg - Labs Labs: 02/04/18 07:31 01/26/18 05:51 PT 13.7 SECONDS (9.7-12.2) H 01/24/18 06:20 INR 1.2 01/24/18 06:20 APTT 35 SECONDS (21-34) H 01/24/18 06:20 - Constitutional Appears: No Acute Distress, Chronically Ill - Eye Exam Eye Exam: EOMI - ENT Exam ENT Exam: Mucous Membranes Moist - Neck Exam Neck Exam: Full ROM. absent: Lymphadenopathy - Respiratory Exam Respiratory Exam: Decreased Breath Sounds. absent: Accessory Muscle Use, Rhonchi, Wheezes - Cardiovascular Exam Cardiovascular Exam: REGULAR RHYTHM. absent: Rubs - GI/Abdominal Exam GI & Abdominal Exam: Distended. absent: Tenderness - Neurological Exam Neurological Exam: Alert, Oriented x3 Assessment and Plan - Assessment and Plan (Free Text) Assessment: ESRD CHF/pneumonia continue AB fluid restriction continue to monitor
[2018-02-05] MEDS: EPOETIN ALFA 4,000 UNIT/ML ML Dialysis IV SCH (14:41)
[2018-02-05] MEDS: DiphenhydrAMINE 50 mg/ml Inj IVP PRN (18:47)
[2018-02-06] MEDS: (Novolog) Insulin Aspart, Recombinant 100 u/ml 10 ml vial SC SCH ×4 (08:17→21:20)
[2018-02-06] MEDS: (Lantus) Insulin Glargine, Recombinant SC SCH ×2 (08:39→17:25)
--- NOTE | 2018-02-06 09:40 | CP.PCM.PN ---
Subjective - Date & Time of Evaluation Date of Evaluation: 02/06/18 Time of Evaluation: 09:37 - Subjective Subjective: s/p dialysis 3.21- UF 3000ml less congested, no longer SOB on IV vanco for fevers- no longer febrile BP controlled no n, v, chills, SOB Objective - Vital Signs/Intake and Output Vital Signs (last 24 hours): Temp Pulse Resp BP Pulse Ox 97.8 F 92 H 18 143/90 96 02/06/18 07:30 02/06/18 07:42 02/06/18 07:30 02/06/18 07:30 02/06/18 07:30 - Medications Medications: Current Medications Amlodipine Besylate (Norvasc) 5 mg PO DAILY [facility] Last Admin: 02/05/18 10:15 Dose: 5 mg Calcium Acetate (Phoslo) 667 mg PO TIDCC [facility] Last Admin: 02/06/18 08:16 Dose: 667 mg Diphenhydramine HCl (Benadryl) 25 mg IVP Q8H PRN PRN Reason: Itching / Pruritus Last Admin: 02/05/18 18:47 Dose: 25 mg Epoetin Kevin (Procrit) 4,000 unit IV MWF [facility] Last Admin: 02/05/18 14:41 Dose: 4,000 unit Famotidine (Pepcid) 20 mg PO DAILY [facility] Last Admin: 02/05/18 10:15 Dose: 20 mg Gabapentin (Neurontin) 300 mg PO BID [facility] Last Admin: 02/05/18 18:41 Dose: 300 mg Vancomycin HCl 500 mg/ Sodium (Chloride) 100 mls @ 100 mls/hr IVPB MWF [facility] PRN Reason: Protocol Last Admin: 02/05/18 11:20 Dose: 100 mls/hr Insulin Aspart (Novolog) 0 unit SC ACHS [facility] PRN Reason: Protocol Last Admin: 02/06/18 08:17 Dose: 2 unit Insulin Glargine (Lantus) 15 unit SC ACBD [facility] Last Admin: 02/06/18 08:39 Dose: 15 units Losartan Potassium (Cozaar) 100 mg PO DAILY [facility] Last Admin: 02/05/18 10:15 Dose: 100 mg Metoprolol Tartrate (Lopressor) 50 mg PO BID [facility] Last Admin: 02/05/18 18:35 Dose: 50 mg - Labs Labs: 02/04/18 07:31 01/26/18 05:51 PT 13.7 SECONDS (9.7-12.2) H 01/24/18 06:20 INR 1.2 01/24/18 06:20 APTT 35 SECONDS (21-34) H 01/24/18 06:20 - Constitutional Appears: No Acute Distress, Chronically Ill - Head Exam Head Exam: ATRAUMATIC, NORMAL INSPECTION - Eye Exam Eye Exam: EOMI, Normal appearance - Neck Exam Neck Exam: Normal Inspection. absent: Tenderness - Respiratory Exam Respiratory Exam: Clear to Ausculation Bilateral, NORMAL BREATHING PATTERN - Cardiovascular Exam Cardiovascular Exam: REGULAR RHYTHM, +S1 - GI/Abdominal Exam GI & Abdominal Exam: Soft. absent: Tenderness - Extremities Exam Extremities Exam: Normal Inspection. absent: Tenderness - Neurological Exam Neurological Exam: Awake, CN II-XII Intact - Skin Skin Exam: Dry, Warm Assessment and Plan (1) CHF exacerbation Status: Acute (2) Controlled type 2 diabetes mellitus with diabetic nephropathy Status: Acute (3) ESRD (end stage renal disease) Status: Acute - Assessment and Plan (Free Text) Plan: Same dialysis MWF Same BP meds Adequate UF with HD
--- NOTE | 2018-02-06 11:29 | VASCLAB ---
STUDY DESCRIPTION: HISTORY: pvd PRIORS: None. TECHNIQUE: Pulse volume recording waveforms and segmental pressures of bilateral lower extremities at multiple levels were obtained. Ankle Brachial Indices (ABIs) were calculated. Report prepared by BAILEY Gabriel, RVT RIGHT LOWER EXTREMITY: * Brachial artery: Pressure - 153 mmHg. * High thigh: Pressure - 220 mmHg: Ratio - NC: PVR waveform - Pulsatile * Low thigh: Pressure - mmHg: Ratio - NC PVR waveform: Pulsatile * Calf: Pressure - 208 mmHg: Ratio - 1.36 PVR waveform: Pulsatile * Posterior tibial Artery: Pressure - 220 mmHg: Ratio - NC PVR waveform: Pulsatile * Dorsalis pedis Artery: Pressure - 220 mmHg: Ratio - NC PVR waveform: Pulsatile * Great toe: Pressure - 157 mmHg: Ratio - 1.03 PVR waveform: Pulsatile Ankle brachial index (MALIHA): NC LEFT LOWER EXTREMITY: * Brachial artery: Pressure - mmHg. * High thigh: Pressure - 220 mmHg: Ratio - NC: PVR waveform - Pulsatile * Low thigh: Pressure - 220 mmHg: Ratio - NC PVR waveform: Pulsatile * Calf: Pressure - 220 mmHg: Ratio - NC PVR waveform: Pulsatile * Posterior tibial Artery: Pressure - 220 mmHg: Ratio - NC PVR waveform: Pulsatile * Dorsalis pedis Artery: Pressure - 208 mmHg: Ratio - NC PVR waveform: Pulsatile * Great toe: Pressure - 156 mmHg: Ratio - 1.02 PVR waveform: Pulsatile Ankle brachial index (MALIHA): NC OTHER FINDINGS: Right: Left: IMPRESSION: Right: The ankle pressure index of the right lower extremity is non-diagnostic due to possible arterial wall calcifications. Left: The ankle pressure index of the left lower extremity is non-diagnostic due to possible arterial wall calcifications. Recommend CT angiogram.
--- NOTE | 2018-02-06 14:11 | CP.PCM.CON ---
History of Present Illness - History of Present Illness History of Present Illness: Vascular Surgery consult note. Dr. Samaniego 42yo F with PMHx of Gastroparesis, COPD, DM, HTN, ESRD on HD (MWF) here with abdominal pain, and recurrent pleural effusions. Vascular surgery consulted for left lower extremity pain. Patient reports left great and left 2nd toe pain for the past week, worsening, described as dull ache. States that the pain started when she began to have dialysis during this admission. Denies any trauma to the area. Denies any paresthesias or weakness. No Headaches. no CP/SOB. No F/C. No Sick contacts. PMHx: Gastroparesis, COPD, DM, HTN, ESRD on HD (MWF) PSHx: L arm AVF 02/01, Family Hx: Denies NKDA Review of Systems - Review of Systems All systems: reviewed and no additional remarkable complaints except - Constitutional Constitutional: absent: Chills, Fever - EENT Nose/Mouth/Throat: absent: Epistaxis - Cardiovascular Cardiovascular: absent: Chest Pain, Dyspnea - Respiratory Respiratory: absent: Cough, Dyspnea - Gastrointestinal Gastrointestinal: absent: Abdominal Pain, Nausea, Vomiting Past Patient History - Infectious Disease Hx of Infectious Diseases: None - Past Medical History & Family History Past Medical History?: Yes Past Family History: Reviewed and not pertinent - Past Social History Smoking Status: Never Smoked Alcohol: None Drugs: Denies - CARDIAC Hx Hypercholesterolemia: Yes Hx Hypertension: Yes - PULMONARY Hx Chronic Obstructive Pulmonary Disease (COPD): Yes - NEUROLOGICAL HX Cerebrovascular Accident: Yes (01/2016, left sided weakness) - HEENT Hx HEENT Problems: Yes Other/Comment: Wears Eyeglasses - RENAL Hx Renal Failure: Yes (ESRD, CKD,) - ENDOCRINE/METABOLIC Hx Diabetes Mellitus Type 2: Yes - HEMATOLOGICAL/ONCOLOGICAL Hx Blood Disorders: Yes Hx Anemia: Yes Hx Blood Transfusions: Yes - INTEGUMENTARY Hx Dermatological Problems: No - MUSCULOSKELETAL/RHEUMATOLOGICAL Hx Musculoskeletal Disorders: Yes Hx Back Pain: Yes Hx Falls: Yes (3 months ago) Hx Spinal Stenosis: Yes Other/Comment: uses walker at home - GASTROINTESTINAL Hx Gastrointestinal Disorders: Yes Hx Gastritis: Yes Hx Nausea: Yes Other/Comment: Hx of gastroparesis as per pt. - GENITOURINARY/GYNECOLOGICAL Hx Genitourinary Disorders: No - PSYCHIATRIC Hx Substance Use: No - SURGICAL HISTORY Hx Surgeries: Yes Hx Section: Yes Other/Comment: Insertion Of HD Cath on the R Internal Jugular; left forearm graft for dialysis. - ANESTHESIA Hx Anesthesia: Yes Hx Anesthesia Reactions: No Hx Malignant Hyperthermia: No Has any member of the family had a problem w/ anesthesia?: No Meds Home Medications: Home Medication List Medication Instructions Recorded Confirmed Type Calcium Acetate [Phoslo] 667 mg PO TIDCC tab 02/03/18 Rx DiphenhydrAMINE [Benadryl] 25 mg IVP Q8H PRN vial 02/03/18 Rx Epoetin Kevin [Procrit] 4,000 unit IV MWF ml 02/03/18 Rx Famotidine [Pepcid] 20 mg PO DAILY tab 02/03/18 Rx Gabapentin [Neurontin] 100 mg PO BID cap 02/03/18 Rx Insulin Aspart, Recombinant 0 unit SC ACHS unit 02/03/18 Rx [Novolog] Insulin Glargine, Recombina 12 unit SC Q12H unit 02/03/18 Rx [Lantus] Losartan [Cozaar] 100 mg PO DAILY tab 02/03/18 Rx Metoprolol Tartrate [Lopressor] 50 mg PO BID tab 02/03/18 Rx Rosuvastatin Calcium [Crestor] 5 mg PO HS tab 02/03/18 Rx amLODIPine [Norvasc] 5 mg PO DAILY tab 02/03/18 Rx cloNIDine [Catapres] 0.1 mg PO TID tab 02/03/18 Rx oxyCODONE/Acetaminophen [Percocet 1 tab PO Q12 PRN #10 tab 02/03/18 Rx 5/325 mg Tab] Allergies/Adverse Reactions: Allergies Allergy/AdvReac Type Severity Reaction Status Date / Time No Known Allergies Allergy Verified 01/18/18 08:51 - Medications Medications: Current Medications Amlodipine Besylate (Norvasc) 5 mg PO DAILY [facility] Last Admin: 02/06/18 09:48 Dose: 5 mg Calcium Acetate (Phoslo) 667 mg PO TIDCC [facility] Last Admin: 02/06/18 08:16 Dose: 667 mg Diphenhydramine HCl (Benadryl) 25 mg IVP Q8H PRN PRN Reason: Itching / Pruritus Last Admin: 02/05/18 18:47 Dose: 25 mg Epoetin Kevin (Procrit) 4,000 unit IV MWF [facility] Last Admin: 02/05/18 14:41 Dose: 4,000 unit Famotidine (Pepcid) 20 mg PO DAILY [facility] Last Admin: 02/06/18 10:00 Dose: 20 mg Gabapentin (Neurontin) 300 mg PO BID [facility] Last Admin: 02/06/18 09:48 Dose: 300 mg Vancomycin HCl 500 mg/ Sodium (Chloride) 100 mls @ 100 mls/hr IVPB MWF [facility] PRN Reason: Protocol Last Admin: 02/05/18 11:20 Dose: 100 mls/hr Insulin Aspart (Novolog) 0 unit SC ACHS [facility] PRN Reason: Protocol Last Admin: 02/06/18 11:37 Dose: Not Given Insulin Glargine (Lantus) 15 unit SC ACBD [facility] Last Admin: 02/06/18 08:39 Dose: 15 units Losartan Potassium (Cozaar) 100 mg PO DAILY [facility] Last Admin: 02/06/18 09:48 Dose: 100 mg Metoprolol Tartrate (Lopressor) 50 mg PO BID [facility] Last Admin: 02/06/18 10:00 Dose: 50 mg Physical Exam - Constitutional Appears: Well, Non-toxic, No Acute Distress - Head Exam Head Exam: ATRAUMATIC, NORMAL INSPECTION, NORMOCEPHALIC - Eye Exam Eye Exam: EOMI, Normal appearance - ENT Exam ENT Exam: Mucous Membranes Moist - Respiratory Exam Respiratory Exam: NORMAL BREATHING PATTERN. absent: Accessory Muscle Use, Respiratory Distress - Cardiovascular Exam Cardiovascular Exam: RRR. absent: JVD - Extremities Exam Additional comments: bilateral lower extremity warm to touch. Good popliteal and femoral pulses palpable bilaterally No skin breakdowns, no erythema, no induration. No bony tenderness. No point tenderness - Neurological Exam Neurological exam: Alert, Oriented x3 - Psychiatric Exam Psychiatric exam: Normal Affect, Normal Mood - Skin Skin Exam: Dry, Intact, Normal Color, Warm Results - Vital Signs Recent Vital Signs: Last Vital Signs Temp 97.8 F 02/06/18 07:30 Pulse 92 H 02/06/18 07:42 Resp 18 02/06/18 07:30 BP 143/90 02/06/18 07:30 Pulse Ox 96 02/06/18 07:30 - Labs Result Diagrams: 02/04/18 07:31 01/26/18 05:51 Labs: Laboratory Results - last 24 hr 02/05/18 02/05/18 02/06/18 16:02 21:12 06:04 POC Glucose (mg/dL) 120 H 160 H 162 H 02/06/18 11:17 POC Glucose (mg/dL) 98 Assessment & Plan - Assessment and Plan (Free Text) Assessment: 42yo F with possible PVD - Arterial Duplex studies noted. Plan: - f/u CT Abd angio with ileofem runoff. Study may be performed on HD day - further recs pending study as ordered. Further recs as per Dr. Danette Barajas PGY1 surgery pager: [phone]
[2018-02-06] MEDS ORDERED: Iodixanol 320 mg/ml 150 ml Bottle IV ONE (16:30)
--- NOTE | 2018-02-06 18:06 | CP.PCM.PN ---
Subjective - Date & Time of Evaluation Date of Evaluation: 02/06/18 Time of Evaluation: 18:06 Objective - Vital Signs/Intake and Output Vital Signs (last 24 hours): Temp Pulse Resp BP Pulse Ox 97.6 F 89 20 145/86 100 02/06/18 15:38 02/06/18 15:41 02/06/18 15:38 02/06/18 15:38 02/06/18 15:38 Intake and Output: 02/06/18 02/06/18 06:59 18:59 Intake Total 280 Output Total 0 Balance 280 - Medications Medications: Current Medications Amlodipine Besylate (Norvasc) 5 mg PO DAILY [facility] Last Admin: 02/06/18 09:48 Dose: 5 mg Calcium Acetate (Phoslo) 667 mg PO TIDCC [facility] Last Admin: 02/06/18 17:24 Dose: 667 mg Diphenhydramine HCl (Benadryl) 25 mg IVP Q8H PRN PRN Reason: Itching / Pruritus Last Admin: 02/05/18 18:47 Dose: 25 mg Epoetin Kevin (Procrit) 4,000 unit IV MWF [facility] Last Admin: 02/05/18 14:41 Dose: 4,000 unit Famotidine (Pepcid) 20 mg PO DAILY [facility] Last Admin: 02/06/18 10:00 Dose: 20 mg Gabapentin (Neurontin) 300 mg PO BID [facility] Last Admin: 02/06/18 17:24 Dose: 300 mg Vancomycin HCl 500 mg/ Sodium (Chloride) 100 mls @ 100 mls/hr IVPB F [facility] PRN Reason: Protocol Last Admin: 02/05/18 11:20 Dose: 100 mls/hr Insulin Aspart (Novolog) 0 unit SC ACHS [facility] PRN Reason: Protocol Last Admin: 02/06/18 17:24 Dose: 8 unit Insulin Glargine (Lantus) 15 unit SC ACBD [facility] Last Admin: 02/06/18 17:25 Dose: 15 units Losartan Potassium (Cozaar) 100 mg PO DAILY [facility] Last Admin: 02/06/18 09:48 Dose: 100 mg Metoprolol Tartrate (Lopressor) 50 mg PO BID [facility] Last Admin: 02/06/18 17:24 Dose: 50 mg - Labs Labs: 02/04/18 07:31 01/26/18 05:51 PT 13.7 SECONDS (9.7-12.2) H 01/24/18 06:20 INR 1.2 01/24/18 06:20 APTT 35 SECONDS (21-34) H 01/24/18 06:20
--- NOTE | 2018-02-06 18:13 | CP.PCM.PN ---
Subjective - Date & Time of Evaluation Date of Evaluation: 02/06/18 Time of Evaluation: 18:04 - Subjective Subjective: Podiatry Progress Note - Dr. Harris 42F seen and evaluated at bedside for left foot pain. Patient resting in bed comfortably, NAD. GUERRERO. Patient reports continued pain in medial aspect of right foot, from heel extending distally into her great toe. States she experiences pain with ambulation and at rest. Patient states she has had this pain for approximately 1 week; denies any trauma. Patient denies any other pedal complaints at this time. She denies numbness, burning or tingling. Patient denies n/f/v/d/c/sob. Objective - Vital Signs/Intake and Output Vital Signs (last 24 hours): Temp Pulse Resp BP Pulse Ox 97.6 F 89 20 145/86 100 02/06/18 15:38 02/06/18 15:41 02/06/18 15:38 02/06/18 15:38 02/06/18 15:38 Intake and Output: 02/06/18 02/06/18 06:59 18:59 Intake Total 280 Output Total 0 Balance 280 - Medications Medications: Current Medications Amlodipine Besylate (Norvasc) 5 mg PO DAILY [facility] Last Admin: 02/06/18 09:48 Dose: 5 mg Calcium Acetate (Phoslo) 667 mg PO TIDCC [facility] Last Admin: 02/06/18 17:24 Dose: 667 mg Diphenhydramine HCl (Benadryl) 25 mg IVP Q8H PRN PRN Reason: Itching / Pruritus Last Admin: 02/05/18 18:47 Dose: 25 mg Epoetin Kevin (Procrit) 4,000 unit IV MWF [facility] Last Admin: 02/05/18 14:41 Dose: 4,000 unit Famotidine (Pepcid) 20 mg PO DAILY [facility] Last Admin: 02/06/18 10:00 Dose: 20 mg Gabapentin (Neurontin) 300 mg PO BID [facility] Last Admin: 02/06/18 17:24 Dose: 300 mg Vancomycin HCl 500 mg/ Sodium (Chloride) 100 mls @ 100 mls/hr IVPB MWF [facility] PRN Reason: Protocol Last Admin: 02/05/18 11:20 Dose: 100 mls/hr Insulin Aspart (Novolog) 0 unit SC ACHS [facility] PRN Reason: Protocol Last Admin: 02/06/18 17:24 Dose: 8 unit Insulin Glargine (Lantus) 15 unit SC ACBD [facility] Last Admin: 02/06/18 17:25 Dose: 15 units Losartan Potassium (Cozaar) 100 mg PO DAILY [facility] Last Admin: 02/06/18 09:48 Dose: 100 mg Metoprolol Tartrate (Lopressor) 50 mg PO BID [facility] Last Admin: 02/06/18 17:24 Dose: 50 mg - Labs Labs: 02/04/18 07:31 01/26/18 05:51 PT 13.7 SECONDS (9.7-12.2) H 01/24/18 06:20 INR 1.2 01/24/18 06:20 APTT 35 SECONDS (21-34) H 01/24/18 06:20 - Constitutional Appears: Well, Non-toxic, No Acute Distress - Extremities Exam Additional comments: vasc: lightly palpable DP pulse, non palpable PT pulse, TG wnl, CFT < 4 sec to all digits neuro: grossly diminished derm: no edema, no erythema, no open lesions, no interdigital maceration, no ascending cellulitis, no fluctuance, no acute clinical signs of infection ortho: pain on palpation to medial aspect of 1st MPJ, midfoot, and ankle jt. - Neurological Exam Neurological Exam: Alert, Awake, Oriented x3 - Psychiatric Exam Psychiatric exam: Normal Affect, Normal Mood Assessment and Plan - Assessment and Plan (Free Text) Assessment: 42 y/o female with pmhx of gastroparesis, COPD, HTN, DM and ESRD on HD (M,W,F), seen at bedside regarding left foot pain - PVD vs. gout Plan: Patient seen and evaluated with attending, Dr. Harris Afebrile, uric acid 8.6 Multipodus boots to be worn at all times while in bed Vascular consulted - f/u recs -f/u CTA Podiatry will continue to follow patient while in house
--- NOTE | 2018-02-06 18:49 | CP.PCM.PN ---
Subjective - Date & Time of Evaluation Date of Evaluation: 02/06/18 Time of Evaluation: 09:00 - Subjective Subjective: less fever less pain weak nad Objective - Vital Signs/Intake and Output Vital Signs (last 24 hours): Temp Pulse Resp BP Pulse Ox 97.6 F 89 20 145/86 100 02/06/18 15:38 02/06/18 15:41 02/06/18 15:38 02/06/18 15:38 02/06/18 15:38 Intake and Output: 02/06/18 02/06/18 06:59 18:59 Intake Total 280 Output Total 0 Balance 280 - Medications Medications: Current Medications Amlodipine Besylate (Norvasc) 5 mg PO DAILY [facility] Last Admin: 02/06/18 09:48 Dose: 5 mg Calcium Acetate (Phoslo) 667 mg PO TIDCC [facility] Last Admin: 02/06/18 17:24 Dose: 667 mg Diphenhydramine HCl (Benadryl) 25 mg IVP Q8H PRN PRN Reason: Itching / Pruritus Last Admin: 02/05/18 18:47 Dose: 25 mg Epoetin Kevin (Procrit) 4,000 unit IV MWF [facility] Last Admin: 02/05/18 14:41 Dose: 4,000 unit Famotidine (Pepcid) 20 mg PO DAILY [facility] Last Admin: 02/06/18 10:00 Dose: 20 mg Gabapentin (Neurontin) 300 mg PO BID [facility] Last Admin: 02/06/18 17:24 Dose: 300 mg Vancomycin HCl 500 mg/ Sodium (Chloride) 100 mls @ 100 mls/hr IVPB [facility] PRN Reason: Protocol Last Admin: 02/05/18 11:20 Dose: 100 mls/hr Insulin Aspart (Novolog) 0 unit SC ACHS [facility] PRN Reason: Protocol Last Admin: 02/06/18 17:24 Dose: 8 unit Insulin Glargine (Lantus) 15 unit SC ACBD [facility] Last Admin: 02/06/18 17:25 Dose: 15 units Losartan Potassium (Cozaar) 100 mg PO DAILY [facility] Last Admin: 02/06/18 09:48 Dose: 100 mg Metoprolol Tartrate (Lopressor) 50 mg PO BID [facility] Last Admin: 02/06/18 17:24 Dose: 50 mg - Labs Labs: 02/04/18 07:31 01/26/18 05:51 PT 13.7 SECONDS (9.7-12.2) H 01/24/18 06:20 INR 1.2 01/24/18 06:20 APTT 35 SECONDS (21-34) H 01/24/18 06:20 - Constitutional Appears: Non-toxic, Chronically Ill - Head Exam Head Exam: NORMOCEPHALIC - Eye Exam Eye Exam: PERRL - ENT Exam ENT Exam: Mucous Membranes Dry - Cardiovascular Exam Cardiovascular Exam: REGULAR RHYTHM - GI/Abdominal Exam GI & Abdominal Exam: Distended - Rectal Exam Rectal Exam: Deferred - Exam Exam: NORMAL INSPECTION Assessment and Plan (1) Cholecystitis Status: Ruled-out (2) Abdominal pain Status: Acute (3) Hyperglycemia Status: Acute (4) JOSE MIGUEL (acute kidney injury) Status: Acute (5) Controlled type 2 diabetes mellitus with diabetic nephropathy Status: Acute (6) Diabetes mellitus with ESRD (end-stage renal disease) Status: Acute (7) Diabetes mellitus with chronic kidney disease Status: Acute (8) Diabetic nephropathy Status: Acute (9) ESRD (end stage renal disease) on dialysis Status: Acute (10) Intractable vomiting Status: Acute (11) CHF exacerbation Status: Acute (12) CHF (congestive heart failure) Status: Acute (13) Volume overload Status: Acute (14) Volume overload Status: Acute
[2018-02-06] MEDS: DiphenhydrAMINE 50 mg/ml Inj IVP PRN (21:44)
[2018-02-07] MEDS: (Novolog) Insulin Aspart, Recombinant 100 u/ml 10 ml vial SC SCH ×4 (08:03→21:22)
[2018-02-07] MEDS: (Lantus) Insulin Glargine, Recombinant SC SCH ×2 (08:03→17:39)
--- NOTE | 2018-02-07 10:48 | CP.PCM.PN ---
Subjective - Date & Time of Evaluation Date of Evaluation: 02/07/18 Time of Evaluation: 10:48 - Subjective Subjective: Podiatry Progress Note - Dr. Harris 42F seen and evaluated in dialysis for left foot. Patient resting comfortably at time of visit, NAD. No acute events overnight. Patient reports continued pain from her inner arch into her left great toe. No changes in pain level since yesterday. Offers no other comlpaints. Denies N/V/F/D/C/SOB/MCDONALD/dizziness. Objective - Vital Signs/Intake and Output Vital Signs (last 24 hours): Temp Pulse Resp BP Pulse Ox 98.0 F 90 18 123/74 97 02/07/18 08:22 02/07/18 08:22 02/07/18 08:22 02/07/18 08:22 02/07/18 08:22 - Medications Medications: Current Medications Amlodipine Besylate (Norvasc) 5 mg PO DAILY [facility] Last Admin: 02/06/18 09:48 Dose: 5 mg Calcium Acetate (Phoslo) 667 mg PO TIDCC [facility] Last Admin: 02/07/18 08:04 Dose: 667 mg Diphenhydramine HCl (Benadryl) 25 mg IVP Q8H PRN PRN Reason: Itching / Pruritus Last Admin: 02/06/18 21:44 Dose: 25 mg Epoetin Kevin (Procrit) 4,000 unit IV MWF [facility] Last Admin: 02/05/18 14:41 Dose: 4,000 unit Famotidine (Pepcid) 20 mg PO DAILY [facility] Last Admin: 02/06/18 10:00 Dose: 20 mg Gabapentin (Neurontin) 300 mg PO BID [facility] Last Admin: 02/06/18 17:24 Dose: 300 mg Vancomycin HCl 500 mg/ Sodium (Chloride) 100 mls @ 100 mls/hr IVPB MWF [facility] PRN Reason: Protocol Last Admin: 02/05/18 11:20 Dose: 100 mls/hr Insulin Aspart (Novolog) 0 unit SC ACHS [facility] PRN Reason: Protocol Last Admin: 02/07/18 08:03 Dose: 2 unit Insulin Glargine (Lantus) 15 unit SC ACBD [facility] Last Admin: 02/07/18 08:03 Dose: 15 units Losartan Potassium (Cozaar) 100 mg PO DAILY [facility] Last Admin: 02/06/18 09:48 Dose: 100 mg Metoprolol Tartrate (Lopressor) 50 mg PO BID [facility] Last Admin: 02/06/18 17:24 Dose: 50 mg - Labs Labs: 02/04/18 07:31 01/26/18 05:51 PT 13.7 SECONDS (9.7-12.2) H 01/24/18 06:20 INR 1.2 01/24/18 06:20 APTT 35 SECONDS (21-34) H 01/24/18 06:20 - Constitutional Appears: Well, Non-toxic, No Acute Distress - Extremities Exam Additional comments: vasc: lightly palpable DP pulse, non palpable PT pulse, TG wnl, CFT < 4 sec to all digits neuro: grossly diminished derm: no edema, no erythema, no open lesions, no interdigital maceration, no ascending cellulitis, no fluctuance, no acute clinical signs of infection ortho: pain on palpation to medial aspect of 1st MPJ, midfoot, and ankle jt. - Neurological Exam Neurological Exam: Alert, Awake, Oriented x3 - Psychiatric Exam Psychiatric exam: Normal Affect, Normal Mood Assessment and Plan - Assessment and Plan (Free Text) Assessment: 42 y/o female with pmhx of gastroparesis, COPD, HTN, DM and ESRD on HD (M,W,F), seen at bedside regarding left foot pain - PVD vs. gout Plan: Patient seen and evaluated with attending, Dr. Harris Afebrile, uric acid (02/05) 8.6 Multipodus boots to be worn at all times while in bed Vascular recs appreciated - no indication for vascular surgery intervention CTA: LLE diffuse calcified plaque seen SFA, three-vessel runoff seen Podiatry will continue to follow patient while in house
--- NOTE | 2018-02-07 11:27 | CT ---
PROCEDURE: CT Angiography Abdomen, Pelvis and Lower Extremity with Contrast HISTORY: left sided PVD COMPARISON: 01/18/2018 TECHNIQUE: Technique: CT angiography of the abdomen, pelvis and bilateral lower extremities performed in the arterial phase of enhancement. Coronal and sagittal reformats, and well as rotating MIP images of the vessels generated at the workstation. Intravenous contrast dose: 100 mL Radiation dose: Total exam DLP = 1624.27 mGy-cm. This CT exam was performed using one or more of the following dose reduction techniques: Automated exposure control, adjustment of the mA and/or kV according to patient size, and/or use of iterative reconstruction technique. FINDINGS: CT ANGIOGRAPHY: ABDOMINAL AORTA:: Patent. No aneurysm. MAJOR AORTIC BRANCHES: Celiac [place]: Unremarkable. Superior mesenteric artery: Unremarkable. Inferior mesenteric artery: Unremarkable. Renal arteries: Unremarkable. Accessory left renal artery. PELVIC ARTERIES: Right Common Iliac: Unremarkable. Right External Iliac: Unremarkable. Right Internal Iliac: Patent. Diffuse calcified plaque. Left Common Iliac: Unremarkable. Left External Iliac: Unremarkable. Left Internal Iliac: Patent. Diffuse calcified plaque. RIGHT LOWER EXTREMITY ARTERIES: Right Common Femoral: Unremarkable. Right Superficial Femoral: Patent with diffuse calcified plaque with focal area of mild narrowing distal to the Roberto's canal. Right Profunda Femoris: Unremarkable. Right Popliteal:Unremarkable. Right Anterior Tibial: Patent. Diffuse calcified plaque. Right Tibioperoneal Trunk: Unremarkable. Right Posterior Tibial: Unremarkable. Right Peroneal: Unremarkable. Right dorsalis pedis : Unremarkable. There is diffuse calcified plaque involving the below-knee arteries LEFT LOWER EXTREMITY ARTERIES: Left Common Femoral: Unremarkable. Left Superficial Femoral: Patent. Diffuse calcified plaque. No significant focal narrowing. Left Profunda Femoris: Unremarkable. Left Popliteal: Unremarkable. Left Anterior Tibial: Unremarkable. Left Tibioperoneal Trunk: Unremarkable. Left Posterior Tibial: Unremarkable. Left Peroneal: Unremarkable. Left Dorsalis pedis: Unremarkable. There is diffuse calcified plaque involving the below-knee arteries. NON-ANGIOGRAPHIC ASPECT OF THE EXAM: LOWER THORAX: Large right-sided pleural effusion again noted. Associated compressive atelectasis and/or pneumonia. Surrounding pulmonary edema. Visualized heart appears unremarkable. LIVER: Enlarged liver measuring approximately 21 centimeters in the craniocaudal dimension at the mid axillary line. 1.2 centimeter area of focal increased enhancement seen in the medial right lobe of the liver (series 2, image 84). This is of indeterminate etiology. GALLBLADDER AND BILE DUCTS: Underdistended gallbladder with focal hyperdense foci of likely from small calculi versus sludge. No intrahepatic or extrahepatic biliary ductal dilatation is evident. PANCREAS: Unremarkable. No gross lesion or ductal dilatation. SPLEEN: Unremarkable. ADRENALS: Diffuse thickening of both adrenal glands. KIDNEYS AND URETERS: No hydronephrosis. Punctate calcifications seen anterior to the left psoas muscle. It is unclear whether this is within the left ureter. However this is unlikely given there is no left-sided hydronephrosis. STOMACH AND BOWEL: Limited evaluation of the stomach and bowel due to lack of oral contrast. No bowel obstruction. Moderate stool throughout the colon suggestive of constipation. There is suggestion of rectal wall thickening suggestive of underlying inflammation. The etiology of this is undetermined. Colonoscopy/sigmoidoscopy can be obtained as per clinical indications. APPENDIX: Normal appendix. PERITONEUM: Small to moderate amount of ascites. LYMPH NODES: Mild bilateral groin lymphadenopathy. Small retroperitoneal lymph nodes also noted. 9 millimeter lymph node noted along the left pelvic sidewall, best seen on image 179, series 2. BLADDER: The bladder is moderately distended. There is mild thickening of the bladder wall. Underlying inflammation should be excluded. REPRODUCTIVE: Please note that evaluation of gynecologic organs is not optimal on CT imaging. BONES: Osteopenia. Degenerative changes involving the spine. OTHER FINDINGS: Anasarca. IMPRESSION: Abdominal angiogram: 1. Patent abdominal aorta without evidence aneurysmal dilatation. Right lower extremity angiogram: 2. Diffuse calcified plaque seen in the superficial femoral artery with focal mild narrowing just distal to the Roberto's canal. Three-vessel runoff seen. Left lower extremity angiogram: 3. Diffuse calcified plaque seen superficial femoral artery. Three-vessel runoff seen. Non angiographic evaluation: 4. Large right pleural effusion. Associated compressive atelectasis and/ pneumonia. 5. There is suggestion of rectal wall thickening suggestive of underlying inflammation. The etiology of this is undetermined. Colonoscopy/sigmoidoscopy can be obtained as per clinical indications. 6. Anasarca. 7. Additional findings above.
--- NOTE | 2018-02-07 13:01 | CP.PCM.PN ---
Subjective - Date & Time of Evaluation Date of Evaluation: 02/07/18 Time of Evaluation: 12:58 - Subjective Subjective: Was at dialysis today, unable to complete treatment due to poorly functional catheter Venous pressures were high- possible venous stenosis BP controlled, not dyspneic Will need new cath, possible angiogram Objective - Vital Signs/Intake and Output Vital Signs (last 24 hours): Temp Pulse Resp BP Pulse Ox 98 F 90 18 141/85 100 02/07/18 09:30 02/07/18 09:30 02/07/18 09:30 02/07/18 10:54 02/07/18 09:30 - Medications Medications: Current Medications Amlodipine Besylate (Norvasc) 5 mg PO DAILY [facility] Last Admin: 02/07/18 11:00 Dose: 5 mg Calcium Acetate (Phoslo) 667 mg PO TIDCC [facility] Last Admin: 02/07/18 08:04 Dose: 667 mg Diphenhydramine HCl (Benadryl) 25 mg IVP Q8H PRN PRN Reason: Itching / Pruritus Last Admin: 02/06/18 21:44 Dose: 25 mg Epoetin Kevin (Procrit) 4,000 unit IV MWF [facility] Last Admin: 02/05/18 14:41 Dose: 4,000 unit Famotidine (Pepcid) 20 mg PO DAILY [facility] Last Admin: 02/07/18 11:00 Dose: 20 mg Gabapentin (Neurontin) 300 mg PO BID [facility] Last Admin: 02/07/18 11:00 Dose: 300 mg Vancomycin HCl 500 mg/ Sodium (Chloride) 100 mls @ 100 mls/hr IVPB F [facility] PRN Reason: Protocol Last Admin: 02/07/18 09:00 Dose: 100 mls/hr Insulin Aspart (Novolog) 0 unit SC ACHS [facility] PRN Reason: Protocol Last Admin: 02/07/18 11:48 Dose: 3 unit Insulin Glargine (Lantus) 15 unit SC ACBD [facility] Last Admin: 02/07/18 08:03 Dose: 15 units Losartan Potassium (Cozaar) 100 mg PO DAILY [facility] Last Admin: 02/07/18 11:00 Dose: 100 mg Metoprolol Tartrate (Lopressor) 50 mg PO BID [facility] Last Admin: 02/07/18 11:00 Dose: 50 mg - Labs Labs: 02/04/18 07:31 03/11/18 05:51 PT 13.7 SECONDS (9.7-12.2) H 01/24/18 06:20 INR 1.2 01/24/18 06:20 APTT 35 SECONDS (21-34) H 01/24/18 06:20 - Constitutional Appears: No Acute Distress, Chronically Ill - Head Exam Head Exam: ATRAUMATIC, NORMAL INSPECTION - Eye Exam Eye Exam: EOMI, Normal appearance - Neck Exam Neck Exam: Normal Inspection. absent: Tenderness - Respiratory Exam Respiratory Exam: Clear to Ausculation Bilateral, NORMAL BREATHING PATTERN - Cardiovascular Exam Cardiovascular Exam: REGULAR RHYTHM, +S1 - GI/Abdominal Exam GI & Abdominal Exam: Soft. absent: Tenderness - Extremities Exam Extremities Exam: Normal Inspection. absent: Tenderness - Neurological Exam Neurological Exam: Alert, CN II-XII Intact - Skin Skin Exam: Dry, Warm Assessment and Plan (1) CHF exacerbation Status: Acute (2) Controlled type 2 diabetes mellitus with diabetic nephropathy Status: Acute (3) ESRD (end stage renal disease) Status: Acute - Assessment and Plan (Free Text) Plan: repeat chemistries Vascular eval today, new cath? Reschedule dialysis in AM
--- NOTE | 2018-02-07 15:13 | CP.PCM.PN ---
Subjective - Date & Time of Evaluation Date of Evaluation: 02/07/18 Time of Evaluation: 06:20 - Subjective Subjective: Vascular Surgery Progress note. Dr. Samaniego Pt seen and examined at bedside. still c/o left toe pain. No F/C. No new complaints. Objective - Vital Signs/Intake and Output Vital Signs (last 24 hours): Temp Pulse Resp BP Pulse Ox 98 F 90 18 141/85 100 02/07/18 09:30 02/07/18 09:30 02/07/18 09:30 02/07/18 10:54 02/07/18 09:30 - Medications Medications: Current Medications Amlodipine Besylate (Norvasc) 5 mg PO DAILY [facility] Last Admin: 02/07/18 11:00 Dose: 5 mg Calcium Acetate (Phoslo) 667 mg PO TIDCC [facility] Last Admin: 02/07/18 08:04 Dose: 667 mg Diphenhydramine HCl (Benadryl) 25 mg IVP Q8H PRN PRN Reason: Itching / Pruritus Last Admin: 02/06/18 21:44 Dose: 25 mg Epoetin Kevin (Procrit) 4,000 unit IV MWF [facility] Last Admin: 02/05/18 14:41 Dose: 4,000 unit Famotidine (Pepcid) 20 mg PO DAILY [facility] Last Admin: 02/07/18 11:00 Dose: 20 mg Gabapentin (Neurontin) 300 mg PO BID [facility] Last Admin: 02/07/18 11:00 Dose: 300 mg Vancomycin HCl 500 mg/ Sodium (Chloride) 100 mls @ 100 mls/hr IVPB MWF [facility] PRN Reason: Protocol Last Admin: 02/07/18 09:00 Dose: 100 mls/hr Insulin Aspart (Novolog) 0 unit SC ACHS [facility] PRN Reason: Protocol Last Admin: 02/07/18 11:48 Dose: 3 unit Insulin Glargine (Lantus) 15 unit SC ACBD [facility] Last Admin: 02/07/18 08:03 Dose: 15 units Losartan Potassium (Cozaar) 100 mg PO DAILY [facility] Last Admin: 02/07/18 11:00 Dose: 100 mg Metoprolol Tartrate (Lopressor) 50 mg PO BID [facility] Last Admin: 02/07/18 11:00 Dose: 50 mg - Labs Labs: 02/04/18 07:31 01/26/18 05:51 PT 13.7 SECONDS (9.7-12.2) H 01/24/18 06:20 INR 1.2 01/24/18 06:20 APTT 35 SECONDS (21-34) H 01/24/18 06:20 - Constitutional Appears: Well, Non-toxic, No Acute Distress - Head Exam Head Exam: ATRAUMATIC, NORMAL INSPECTION, NORMOCEPHALIC - Eye Exam Eye Exam: EOMI, Normal appearance - ENT Exam ENT Exam: Mucous Membranes Moist - Respiratory Exam Respiratory Exam: NORMAL BREATHING PATTERN. absent: Accessory Muscle Use, Respiratory Distress - Cardiovascular Exam Cardiovascular Exam: RRR. absent: JVD - GI/Abdominal Exam GI & Abdominal Exam: Soft. absent: Distended, Firm, Guarding, Rigid, Tenderness - Extremities Exam Extremities Exam: Normal Inspection Additional comments: Warm lower extremities. No skin lesions. - Neurological Exam Neurological Exam: Alert, Awake, Oriented x3 - Skin Skin Exam: Dry, Intact, Normal Color, Warm Assessment and Plan - Assessment and Plan (Free Text) Assessment: 42yo F with Left toe pain. r/o significant PVD - CTA abdomen with ileofem runoff noted Plan: - No indication for vascular surgery intervention - continue current management Further recs as per Dr. Danette Barajas PGY1 surgery pager: [phone]
--- NOTE | 2018-02-07 15:42 | RAD ---
PROCEDURE: CHEST RADIOGRAPH, 1 VIEW HISTORY: attempted IJ Central line COMPARISON: Attempted central line. FINDINGS: LUNGS: Hazy opacity in both lungs right greater than left. Increased pulmonary vascular congestion. PLEURA: Moderate to large pleural effusion on the right with a loculated component reaching up to the apex. Effusion seen along the middle lobe fissure on the right. No pneumothorax. CARDIOVASCULAR: Large heart. Significant pleural effusion on the left. OSSEOUS STRUCTURES: The osseous structures demonstrate degenerative changes. VISUALIZED UPPER ABDOMEN: Upper abdomen is suboptimally evaluated. OTHER FINDINGS: No catheter is seen. IMPRESSION: No vascular lines identified. Findings as above.
--- NOTE | 2018-02-07 15:47 | PCM.SURG1 ---
Surgeon's Initial Post Op Note - Surgeon's Notes Surgeon: Dr. Samaniego Plastic Boat Buffer: Dr. Patiño, PGY-3 Type of Anesthesia: Local Anesthesia Administered By: Dr. Patiño Pre-Operative Diagnosis: non-functioning AVF Operative Findings: Informed consent was obtained and a timeout was performed with the nurse present in the room. Pt's R neck was prepped and draped in usual sterile fashion. 1% Lidocaine was used to anesthetize the skin and sub-q tissues. US guidance was used along with micropunture needle to access the R IJ and a wire was advanced over the needle. However, the wire kinked and a dilator could not be advanced over the wire. At this time, decision was made to use the R groin as the access site. Pt was re-prepped and redraped and the R femoral vein was punctured under US guidance. Wire was then advanced over the needle, small incision over the wire was made with a scalpel and dilator was used to create a tract. The Shiley catheter was then advanced over the wire. All ports were flushed with heparinized saline and good blood return was confirmed. The shiley was sutured in place with silk sutures, biopatch and sterile dressing was applied. Pt tolerated the procedure well and post-op CXR showed no pneumo. Post-Operative Diagnosis: Same Operation Performed: 1) Attempted R IJ dialysis catheter placement. 2) Successful R femoral HD catheter placement Specimen/Specimens Removed: none Estimated Blood Loss: EBL {In ML}: 20 Blood Products Given: N/A Drains Used: No Drains Post-Op Condition: Good Date of Surgery/Procedure: 02/07/18 Time of Surgery/Procedure: 15:48
--- NOTE | 2018-02-07 18:35 | CP.PCM.PN ---
Subjective - Date & Time of Evaluation Date of Evaluation: 02/07/18 Time of Evaluation: 08:00 - Subjective Subjective: events noted access device issues noted foot better dr desouza on board iv rx in progress Objective - Vital Signs/Intake and Output Vital Signs (last 24 hours): Temp Pulse Resp BP Pulse Ox 97.4 F L 90 20 152/83 H 100 02/07/18 15:08 02/07/18 15:08 02/07/18 15:08 02/07/18 15:08 02/07/18 15:08 - Medications Medications: Current Medications Amlodipine Besylate (Norvasc) 5 mg PO DAILY [facility] Last Admin: 02/07/18 11:00 Dose: 5 mg Calcium Acetate (Phoslo) 667 mg PO TIDCC [facility] Last Admin: 02/07/18 17:38 Dose: 667 mg Diphenhydramine HCl (Benadryl) 25 mg IVP Q8H PRN PRN Reason: Itching / Pruritus Last Admin: 02/06/18 21:44 Dose: 25 mg Epoetin Kevin (Procrit) 4,000 unit IV MWF [facility] Last Admin: 02/05/18 14:41 Dose: 4,000 unit Famotidine (Pepcid) 20 mg PO DAILY [facility] Last Admin: 02/07/18 11:00 Dose: 20 mg Gabapentin (Neurontin) 300 mg PO BID [facility] Last Admin: 02/07/18 17:39 Dose: 300 mg Vancomycin HCl 500 mg/ Sodium (Chloride) 100 mls @ 100 mls/hr IVPB MWF [facility] PRN Reason: Protocol Last Admin: 02/07/18 09:00 Dose: 100 mls/hr Insulin Aspart (Novolog) 0 unit SC ACHS [facility] PRN Reason: Protocol Last Admin: 02/07/18 17:39 Dose: 2 unit Insulin Glargine (Lantus) 15 unit SC ACBD [facility] Last Admin: 02/07/18 17:39 Dose: 15 units Losartan Potassium (Cozaar) 100 mg PO DAILY [facility] Last Admin: 02/07/18 11:00 Dose: 100 mg Metoprolol Tartrate (Lopressor) 50 mg PO BID [facility] Last Admin: 02/07/18 17:38 Dose: 50 mg - Labs Labs: 02/04/18 07:31 01/26/18 05:51 PT 13.7 SECONDS (9.7-12.2) H 01/24/18 06:20 INR 1.2 01/24/18 06:20 APTT 35 SECONDS (21-34) H 01/24/18 06:20 - Constitutional Appears: Non-toxic, Chronically Ill - Head Exam Head Exam: NORMOCEPHALIC - Eye Exam Eye Exam: PERRL - ENT Exam ENT Exam: Mucous Membranes Dry - Neck Exam Neck Exam: absent: Lymphadenopathy - Respiratory Exam Respiratory Exam: Decreased Breath Sounds - Cardiovascular Exam Cardiovascular Exam: REGULAR RHYTHM Assessment and Plan (1) Cholecystitis Status: Ruled-out (2) Abdominal pain Status: Acute (3) Hyperglycemia Status: Acute (4) JOSE MIGUEL (acute kidney injury) Status: Acute (5) Controlled type 2 diabetes mellitus with diabetic nephropathy Status: Acute (6) Diabetes mellitus with ESRD (end-stage renal disease) Status: Acute (7) Diabetes mellitus with chronic kidney disease Status: Acute (8) Diabetic nephropathy Status: Acute (9) ESRD (end stage renal disease) on dialysis Status: Acute (10) Intractable vomiting Status: Acute (11) CHF exacerbation Status: Acute (12) CHF (congestive heart failure) Status: Acute (13) Volume overload Status: Acute (14) Volume overload Status: Acute
--- NOTE | 2018-02-07 18:40 | CP.PCM.PN ---
Subjective - Date & Time of Evaluation Date of Evaluation: 02/07/18 Time of Evaluation: 18:40 Objective - Vital Signs/Intake and Output Vital Signs (last 24 hours): Temp Pulse Resp BP Pulse Ox 97.4 F L 90 20 152/83 H 100 02/07/18 15:08 02/07/18 15:08 02/07/18 15:08 02/07/18 15:08 02/07/18 15:08 - Medications Medications: Current Medications Amlodipine Besylate (Norvasc) 5 mg PO DAILY [facility] Last Admin: 02/07/18 11:00 Dose: 5 mg Calcium Acetate (Phoslo) 667 mg PO TIDCC [facility] Last Admin: 02/07/18 17:38 Dose: 667 mg Diphenhydramine HCl (Benadryl) 25 mg IVP Q8H PRN PRN Reason: Itching / Pruritus Last Admin: 02/06/18 21:44 Dose: 25 mg Epoetin Kevin (Procrit) 4,000 unit IV MWF [facility] Last Admin: 02/05/18 14:41 Dose: 4,000 unit Famotidine (Pepcid) 20 mg PO DAILY [facility] Last Admin: 02/07/18 11:00 Dose: 20 mg Gabapentin (Neurontin) 300 mg PO BID [facility] Last Admin: 02/07/18 17:39 Dose: 300 mg Vancomycin HCl 500 mg/ Sodium (Chloride) 100 mls @ 100 mls/hr IVPB F [facility] PRN Reason: Protocol Last Admin: 02/07/18 09:00 Dose: 100 mls/hr Insulin Aspart (Novolog) 0 unit SC ACHS [facility] PRN Reason: Protocol Last Admin: 02/07/18 17:39 Dose: 2 unit Insulin Glargine (Lantus) 15 unit SC ACBD [facility] Last Admin: 02/07/18 17:39 Dose: 15 units Losartan Potassium (Cozaar) 100 mg PO DAILY [facility] Last Admin: 02/07/18 11:00 Dose: 100 mg Metoprolol Tartrate (Lopressor) 50 mg PO BID [facility] Last Admin: 02/07/18 17:38 Dose: 50 mg - Labs Labs: 02/04/18 07:31 01/26/18 05:51 PT 13.7 SECONDS (9.7-12.2) H 01/24/18 06:20 INR 1.2 01/24/18 06:20 APTT 35 SECONDS (21-34) H 01/24/18 06:20
[2018-02-07 20:55] LABS: ALB/GLOB RATIO 0.6 (1.0-2.1); ALBUMIN 3.6 g/dL (3.5-5.0)
[2018-02-07] MEDS: DiphenhydrAMINE 50 mg/ml Inj IVP PRN (22:57)
[2018-02-08] MEDS: (Novolog) Insulin Aspart, Recombinant 100 u/ml 10 ml vial SC SCH ×4 (07:30→22:40)
[2018-02-08] MEDS: (Lantus) Insulin Glargine, Recombinant SC SCH ×2 (09:33→17:15)
[2018-02-08] MEDS: EPOETIN ALFA 4,000 UNIT/ML ML Dialysis IV SCH (10:15)
--- NOTE | 2018-02-08 10:57 | CP.PCM.PN ---
Subjective - Date & Time of Evaluation Date of Evaluation: 02/08/18 Time of Evaluation: 10:54 - Subjective Subjective: on Hd via femoral catheter jerilyn with bruit pt lethargic does not cooperate with exam ROS could not be obtained Objective - Vital Signs/Intake and Output Vital Signs (last 24 hours): Temp Pulse Resp BP Pulse Ox 97.9 F 91 H 20 155/90 H 100 02/08/18 09:55 02/08/18 09:55 02/08/18 09:55 02/08/18 10:40 02/08/18 09:55 Intake and Output: 02/08/18 02/08/18 06:59 18:59 Intake Total 320 Balance 320 - Medications Medications: Current Medications Amlodipine Besylate (Norvasc) 5 mg PO DAILY [facility] Last Admin: 02/08/18 09:35 Dose: 5 mg Calcium Acetate (Phoslo) 667 mg PO TIDCC [facility] Last Admin: 02/08/18 09:35 Dose: 667 mg Diphenhydramine HCl (Benadryl) 25 mg IVP Q8H PRN PRN Reason: Itching / Pruritus Last Admin: 02/07/18 22:57 Dose: 25 mg Epoetin Kevin (Procrit) 4,000 unit IV F [facility] Last Admin: 02/08/18 10:15 Dose: Not Given Famotidine (Pepcid) 20 mg PO DAILY [facility] Last Admin: 02/08/18 09:35 Dose: 20 mg Gabapentin (Neurontin) 300 mg PO F [facility] Vancomycin HCl 500 mg/ Sodium (Chloride) 100 mls @ 100 mls/hr IVPB [facility] PRN Reason: Protocol Last Admin: 02/07/18 09:00 Dose: 100 mls/hr Insulin Aspart (Novolog) 0 unit SC ACHS [facility] PRN Reason: Protocol Last Admin: 02/08/18 07:30 Dose: Not Given Insulin Glargine (Lantus) 15 unit SC ACBD [facility] Last Admin: 02/08/18 09:33 Dose: 15 units Losartan Potassium (Cozaar) 100 mg PO DAILY [facility] Last Admin: 02/08/18 09:34 Dose: 100 mg Metoprolol Tartrate (Lopressor) 50 mg PO BID [facility] Last Admin: 02/08/18 09:33 Dose: 50 mg - Labs Labs: 02/04/18 07:31 03/23/18 20:05 PT 13.7 SECONDS (9.7-12.2) H 01/24/18 06:20 INR 1.2 01/24/18 06:20 APTT 35 SECONDS (21-34) H 01/24/18 06:20 - Head Exam Head Exam: ATRAUMATIC, NORMAL INSPECTION - Eye Exam Eye Exam: EOMI - ENT Exam ENT Exam: Mucous Membranes Moist - Neck Exam Neck Exam: absent: Lymphadenopathy - Respiratory Exam Respiratory Exam: Decreased Breath Sounds. absent: Accessory Muscle Use - Cardiovascular Exam Cardiovascular Exam: absent: Rubs - GI/Abdominal Exam GI & Abdominal Exam: Soft. absent: Tenderness - Neurological Exam Additional comments: sleeping, wakes up, but does not engage in conversation Assessment and Plan - Assessment and Plan (Free Text) Assessment: HD today with femoral cath Surgery to evaluate JERILYN Gabapentin dose reduced monitor wakefulness
[2018-02-08] MEDS ORDERED: EPOETIN ALFA 4,000 UNIT/ML ML Dialysis IV ONE (11:00)
--- NOTE | 2018-02-08 11:54 | CP.PCM.PN ---
Subjective - Date & Time of Evaluation Date of Evaluation: 02/08/18 Time of Evaluation: 09:15 - Subjective Subjective: Podiatry Progress Note - Dr. Harris 42F seen and evaluated in dialysis for left foot pain. Patient sleeping during time of visitation with attending Dr. Harris Objective - Vital Signs/Intake and Output Vital Signs (last 24 hours): Temp Pulse Resp BP Pulse Ox 97.9 F 91 H 20 157/95 H 100 02/08/18 09:55 02/08/18 09:55 02/08/18 09:55 02/08/18 10:55 02/08/18 09:55 Intake and Output: 02/08/18 02/08/18 06:59 18:59 Intake Total 320 Balance 320 - Medications Medications: Current Medications Amlodipine Besylate (Norvasc) 5 mg PO DAILY [facility] Last Admin: 02/08/18 09:35 Dose: 5 mg Calcium Acetate (Phoslo) 667 mg PO TIDCC [facility] Last Admin: 02/08/18 09:35 Dose: 667 mg Diphenhydramine HCl (Benadryl) 25 mg IVP Q8H PRN PRN Reason: Itching / Pruritus Last Admin: 02/07/18 22:57 Dose: 25 mg Epoetin Kevin (Procrit) 4,000 unit IV [facility] Famotidine (Pepcid) 20 mg PO DAILY [facility] Last Admin: 02/08/18 09:35 Dose: 20 mg Gabapentin (Neurontin) 300 mg PO MWF [facility] Vancomycin HCl 500 mg/ Sodium (Chloride) 100 mls @ 100 mls/hr IVPB [facility] PRN Reason: Protocol Last Admin: 02/07/18 09:00 Dose: 100 mls/hr Insulin Aspart (Novolog) 0 unit SC ACHS [facility] PRN Reason: Protocol Last Admin: 02/08/18 07:30 Dose: Not Given Insulin Glargine (Lantus) 15 unit SC ACBD [facility] Last Admin: 02/08/18 09:33 Dose: 15 units Losartan Potassium (Cozaar) 100 mg PO DAILY [facility] Last Admin: 02/08/18 09:34 Dose: 100 mg Metoprolol Tartrate (Lopressor) 50 mg PO BID [facility] Last Admin: 02/08/18 09:33 Dose: 50 mg - Labs Labs: 02/04/18 07:31 02/07/18 20:05 PT 13.7 SECONDS (9.7-12.2) H 01/24/18 06:20 INR 1.2 01/24/18 06:20 APTT 35 SECONDS (21-34) H 01/24/18 06:20 - Constitutional Appears: Well, Non-toxic, No Acute Distress - Extremities Exam Extremities Exam: absent: Calf Tenderness Additional comments: vasc: lightly palpable DP pulse, non palpable PT pulse, TG wnl, CFT < 4 sec to all digits neuro: grossly diminished derm: no edema, no erythema, no open lesions, no interdigital maceration, no ascending cellulitis, no fluctuance, no acute clinical signs of infection ortho: pain on palpation to medial aspect of 1st MPJ, midfoot, and ankle jt. Assessment and Plan - Assessment and Plan (Free Text) Assessment: 42 y/o female with pmhx of gastroparesis, COPD, HTN, DM and ESRD on HD (M,W,F), seen at bedside regarding left foot pain - PVD vs. gout Plan: Patient seen and evaluated with attending, Dr. Harris Afebrile, uric acid (02/05) 8.6 Multipodus boots to be worn at all times while in bed Vascular recs appreciated CTA: LLE diffuse calcified plaque seen SFA, three-vessel runoff seen Podiatry will continue to follow patient while in house
[2018-02-08] MEDS: DiphenhydrAMINE 50 mg/ml Inj IVP PRN (22:39)
[2018-02-09] MEDS: (Lantus) Insulin Glargine, Recombinant SC SCH ×2 (07:30→17:21)
[2018-02-09] MEDS: (Novolog) Insulin Aspart, Recombinant 100 u/ml 10 ml vial SC SCH ×4 (07:30→21:46)
--- NOTE | 2018-02-09 13:10 | CP.PCM.PN ---
Subjective - Date & Time of Evaluation Date of Evaluation: 02/09/18 Time of Evaluation: 08:30 - Subjective Subjective: Surgery Progress note. Dr. Samaniego Pt seen and examined at bedside. No acute events overnight. bhavin reports that she has been receiving HD via temp dialysis catheter without any complaints. States that left foot pain is improving. no new complaints. Objective - Vital Signs/Intake and Output Vital Signs (last 24 hours): Temp Pulse Resp BP Pulse Ox 97.9 F 90 20 137/78 98 02/09/18 07:00 02/09/18 07:00 02/09/18 07:00 02/09/18 07:00 02/09/18 07:00 Intake and Output: 02/09/18 02/09/18 06:59 18:59 Intake Total 540 Output Total 0 Balance 540 - Medications Medications: Current Medications Amlodipine Besylate (Norvasc) 5 mg PO DAILY [facility] Last Admin: 02/09/18 09:50 Dose: 5 mg Calcium Acetate (Phoslo) 667 mg PO TID [facility] Last Admin: 02/09/18 09:50 Dose: 667 mg Diphenhydramine HCl (Benadryl) 25 mg IVP Q8H PRN PRN Reason: Itching / Pruritus Last Admin: 02/08/18 22:39 Dose: 25 mg Epoetin Kevin (Procrit) 4,000 unit IV [facility] Famotidine (Pepcid) 20 mg PO DAILY [facility] Last Admin: 02/09/18 09:50 Dose: 20 mg Gabapentin (Neurontin) 300 mg PO F [facility] Vancomycin HCl 500 mg/ Sodium (Chloride) 100 mls @ 100 mls/hr IVPB [facility] PRN Reason: Protocol Last Admin: 02/07/18 09:00 Dose: 100 mls/hr Insulin Aspart (Novolog) 0 unit SC ACHS [facility] PRN Reason: Protocol Last Admin: 02/09/18 11:42 Dose: 3 unit Insulin Glargine (Lantus) 15 unit SC ACBD [facility] Last Admin: 02/09/18 07:30 Dose: Not Given Losartan Potassium (Cozaar) 100 mg PO DAILY [facility] Last Admin: 02/09/18 09:50 Dose: 100 mg Metoprolol Tartrate (Lopressor) 50 mg PO BID [facility] Last Admin: 02/09/18 09:50 Dose: 50 mg Tramadol HCl (Ultram) 50 mg PO Q12H [facility] Last Admin: 02/09/18 08:51 Dose: 50 mg - Labs Labs: 02/04/18 07:31 02/07/18 20:05 PT 13.7 SECONDS (9.7-12.2) H 01/24/18 06:20 INR 1.2 01/24/18 06:20 APTT 35 SECONDS (21-34) H 01/24/18 06:20 - Constitutional Appears: Well, Non-toxic, No Acute Distress - Head Exam Head Exam: ATRAUMATIC, NORMAL INSPECTION, NORMOCEPHALIC - Eye Exam Eye Exam: EOMI, Normal appearance - ENT Exam ENT Exam: Mucous Membranes Moist - Cardiovascular Exam Cardiovascular Exam: RRR. absent: JVD - GI/Abdominal Exam GI & Abdominal Exam: Soft. absent: Distended, Firm, Guarding, Tenderness, Rebound - Neurological Exam Neurological Exam: Alert, Awake, Oriented x3 - Skin Skin Exam: Dry, Intact, Normal Color, Warm Assessment and Plan - Assessment and Plan (Free Text) Assessment: 42yo F with non-functioning AVF Plan: - Possible OR/Vascular suite tomorrow (02/10) for AV shunt evaluation +/- intervention - NPO mn - continue current management Further recs as per Dr. Danette Barajas PGY1 surgery pager: [phone]
--- NOTE | 2018-02-09 15:08 | CP.PCM.PN ---
Subjective - Date & Time of Evaluation Date of Evaluation: 02/09/18 Time of Evaluation: 17:00 Objective - Vital Signs/Intake and Output Vital Signs (last 24 hours): Temp Pulse Resp BP Pulse Ox 97.9 F 90 20 137/78 98 02/09/18 07:00 02/09/18 07:00 02/09/18 07:00 02/09/18 07:00 02/09/18 07:00 Intake and Output: 02/09/18 02/09/18 06:59 18:59 Intake Total 540 Output Total 0 Balance 540 - Medications Medications: Current Medications Amlodipine Besylate (Norvasc) 5 mg PO DAILY [facility] Last Admin: 02/09/18 09:50 Dose: 5 mg Calcium Acetate (Phoslo) 667 mg PO TID [facility] Last Admin: 02/09/18 09:50 Dose: 667 mg Diphenhydramine HCl (Benadryl) 25 mg IVP Q8H PRN PRN Reason: Itching / Pruritus Last Admin: 02/08/18 22:39 Dose: 25 mg Epoetin Kevin (Procrit) 4,000 unit IV [facility] Famotidine (Pepcid) 20 mg PO DAILY [facility] Last Admin: 02/09/18 09:50 Dose: 20 mg Gabapentin (Neurontin) 300 mg PO MWF [facility] Vancomycin HCl 500 mg/ Sodium (Chloride) 100 mls @ 100 mls/hr IVPB [facility] PRN Reason: Protocol Last Admin: 02/07/18 09:00 Dose: 100 mls/hr Insulin Aspart (Novolog) 0 unit SC ACHS [facility] PRN Reason: Protocol Last Admin: 02/09/18 11:42 Dose: 3 unit Insulin Glargine (Lantus) 15 unit SC ACBD [facility] Last Admin: 02/09/18 07:30 Dose: Not Given Losartan Potassium (Cozaar) 100 mg PO DAILY [facility] Last Admin: 02/09/18 09:50 Dose: 100 mg Metoprolol Tartrate (Lopressor) 50 mg PO BID [facility] Last Admin: 02/09/18 09:50 Dose: 50 mg Tramadol HCl (Ultram) 50 mg PO Q12H [facility] Last Admin: 02/09/18 08:51 Dose: 50 mg - Labs Labs: 02/04/18 07:31 02/07/18 20:05 PT 13.7 SECONDS (9.7-12.2) H 01/24/18 06:20 INR 1.2 01/24/18 06:20 APTT 35 SECONDS (21-34) H 01/24/18 06:20
--- NOTE | 2018-02-09 15:09 | CP.PCM.PN ---
Subjective - Date & Time of Evaluation Date of Evaluation: 02/09/18 Time of Evaluation: 15:09 Objective - Vital Signs/Intake and Output Vital Signs (last 24 hours): Temp Pulse Resp BP Pulse Ox 97.9 F 90 20 137/78 98 02/09/18 07:00 02/09/18 07:00 02/09/18 07:00 02/09/18 07:00 02/09/18 07:00 Intake and Output: 02/09/18 02/09/18 06:59 18:59 Intake Total 540 Output Total 0 Balance 540 - Medications Medications: Current Medications Amlodipine Besylate (Norvasc) 5 mg PO DAILY [facility] Last Admin: 02/09/18 09:50 Dose: 5 mg Calcium Acetate (Phoslo) 667 mg PO TID [facility] Last Admin: 02/09/18 09:50 Dose: 667 mg Diphenhydramine HCl (Benadryl) 25 mg IVP Q8H PRN PRN Reason: Itching / Pruritus Last Admin: 02/08/18 22:39 Dose: 25 mg Epoetin Kevin (Procrit) 4,000 unit IV [facility] [place] Famotidine (Pepcid) 20 mg PO DAILY [facility] Last Admin: 02/09/18 09:50 Dose: 20 mg Gabapentin (Neurontin) 300 mg PO MWF [facility] Vancomycin HCl 500 mg/ Sodium (Chloride) 100 mls @ 100 mls/hr IVPB [facility] PRN Reason: Protocol Last Admin: 02/07/18 09:00 Dose: 100 mls/hr Insulin Aspart (Novolog) 0 unit SC ACHS [facility] PRN Reason: Protocol Last Admin: 02/09/18 11:42 Dose: 3 unit Insulin Glargine (Lantus) 15 unit SC ACBD [facility] Last Admin: 02/09/18 07:30 Dose: Not Given Losartan Potassium (Cozaar) 100 mg PO DAILY [facility] Last Admin: 02/09/18 09:50 Dose: 100 mg Metoprolol Tartrate (Lopressor) 50 mg PO BID [facility] Last Admin: 02/09/18 09:50 Dose: 50 mg Tramadol HCl (Ultram) 50 mg PO Q12H [facility] Last Admin: 02/09/18 08:51 Dose: 50 mg - Labs Labs: 02/04/18 07:31 02/07/18 20:05 PT 13.7 SECONDS (9.7-12.2) H 01/24/18 06:20 INR 1.2 01/24/18 06:20 APTT 35 SECONDS (21-34) H 01/24/18 06:20
--- NOTE | 2018-02-09 15:49 | CP.PCM.PN ---
Subjective - Date & Time of Evaluation Date of Evaluation: 02/09/18 Time of Evaluation: 07:00 - Subjective Subjective: going for AV fistula repair in am CT angio shows 3 vessel runoff to Left lower Extremity denies fever + pain left foot Dr Harris following Objective - Vital Signs/Intake and Output Vital Signs (last 24 hours): Temp Pulse Resp BP Pulse Ox 97.9 F 90 20 137/78 98 02/09/18 07:00 02/09/18 07:00 02/09/18 07:00 02/09/18 07:00 02/09/18 07:00 Intake and Output: 02/09/18 02/09/18 06:59 18:59 Intake Total 540 Output Total 0 Balance 540 - Medications Medications: Current Medications Amlodipine Besylate (Norvasc) 5 mg PO DAILY [facility] Last Admin: 02/09/18 09:50 Dose: 5 mg Calcium Acetate (Phoslo) 667 mg PO TID [facility] Last Admin: 02/09/18 14:00 Dose: 667 mg Diphenhydramine HCl (Benadryl) 25 mg IVP Q8H PRN PRN Reason: Itching / Pruritus Last Admin: 02/08/18 22:39 Dose: 25 mg Epoetin Kevin (Procrit) 4,000 unit IV F [facility] Famotidine (Pepcid) 20 mg PO DAILY [facility] Last Admin: 02/09/18 09:50 Dose: 20 mg Gabapentin (Neurontin) 300 mg PO MWF [facility] Vancomycin HCl 500 mg/ Sodium (Chloride) 100 mls @ 100 mls/hr IVPB [facility] PRN Reason: Protocol Last Admin: 02/07/18 09:00 Dose: 100 mls/hr Insulin Aspart (Novolog) 0 unit SC ACHS [facility] PRN Reason: Protocol Last Admin: 02/09/18 11:42 Dose: 3 unit Insulin Glargine (Lantus) 15 unit SC ACBD [facility] Last Admin: 02/09/18 07:30 Dose: Not Given Losartan Potassium (Cozaar) 100 mg PO DAILY [facility] Last Admin: 02/09/18 09:50 Dose: 100 mg Metoprolol Tartrate (Lopressor) 50 mg PO BID [facility] Last Admin: 02/09/18 09:50 Dose: 50 mg Tramadol HCl (Ultram) 50 mg PO Q12H [facility] Last Admin: 02/09/18 08:51 Dose: 50 mg - Labs Labs: 02/04/18 07:31 02/07/18 20:05 PT 13.7 SECONDS (9.7-12.2) H 01/24/18 06:20 INR 1.2 01/24/18 06:20 APTT 35 SECONDS (21-34) H 01/24/18 06:20 - Constitutional Appears: Non-toxic, Chronically Ill - Head Exam Head Exam: NORMOCEPHALIC - Eye Exam Eye Exam: PERRL. absent: Scleral icterus - ENT Exam ENT Exam: Mucous Membranes Dry - Neck Exam Neck Exam: absent: Lymphadenopathy - Respiratory Exam Respiratory Exam: Decreased Breath Sounds - Cardiovascular Exam Cardiovascular Exam: REGULAR RHYTHM - GI/Abdominal Exam GI & Abdominal Exam: Distended, Soft. absent: Tenderness - Rectal Exam Rectal Exam: Deferred - Exam Exam: NORMAL INSPECTION - Extremities Exam Extremities Exam: Pedal Edema, Tenderness. absent: Calf Tenderness - Back Exam Back Exam: absent: CVA tenderness (L), CVA tenderness (R) - Neurological Exam Neurological Exam: Alert, Awake, Oriented x3 - Psychiatric Exam Psychiatric exam: Depressed - Skin Skin Exam: Dry - Additional Findings Additional findings: going for AV fistula repair in am CT angio shows 3 vessel runoff to Left lower Extremity denies fever + pain left foot Dr Harris following Assessment and Plan (1) Cholecystitis Status: Ruled-out (2) Abdominal pain Status: Acute (3) Hyperglycemia Status: Acute (4) JOSE MIGUEL (acute kidney injury) Status: Acute (5) Controlled type 2 diabetes mellitus with diabetic nephropathy Status: Acute (6) Diabetes mellitus with ESRD (end-stage renal disease) Status: Acute (7) Diabetes mellitus with chronic kidney disease Status: Acute (8) Diabetic nephropathy Status: Acute (9) ESRD (end stage renal disease) on dialysis Status: Acute (10) Intractable vomiting Status: Acute (11) CHF exacerbation Status: Acute (12) CHF (congestive heart failure) Status: Acute (13) Volume overload Status: Acute (14) Volume overload Status: Acute
[2018-02-09] MEDS: DiphenhydrAMINE 50 mg/ml Inj IVP PRN (21:26)
[2018-02-10] MEDS: (Lantus) Insulin Glargine, Recombinant SC SCH ×2 (07:52→16:40)
[2018-02-10] MEDS: (Novolog) Insulin Aspart, Recombinant 100 u/ml 10 ml vial SC SCH ×4 (07:53→22:17)
[2018-02-10] MEDS: EPOETIN ALFA 4,000 UNIT/ML ML Dialysis IV SCH (10:21)
[2018-02-10 10:37] LABS: BLOOD UREA NITROGEN 42 mg/dL (7-17); GFR AFRICAN-AMERICAN 10; GFR NON-AFRICAN AMERICAN 8
--- NOTE | 2018-02-10 12:16 | CP.PCM.PN ---
Subjective - Date & Time of Evaluation Date of Evaluation: 02/10/18 Time of Evaluation: 12:14 - Subjective Subjective: Seen at dialysis on 1 neele AVF , other line in fem cath stable dialysis- UF 3000ml BP controlled no more dyspnea, CPs will need AV f evaluation- post dialysis Objective - Vital Signs/Intake and Output Vital Signs (last 24 hours): Temp Pulse Resp BP Pulse Ox 98 F 77 18 143/78 100 02/10/18 09:15 02/10/18 09:15 02/10/18 09:15 02/10/18 11:45 02/10/18 09:15 Intake and Output: 02/10/18 02/10/18 06:59 18:59 Intake Total 420 Balance 420 - Medications Medications: Current Medications Amlodipine Besylate (Norvasc) 5 mg PO DAILY [facility] Last Admin: 02/10/18 09:33 Dose: Not Given Calcium Acetate (Phoslo) 667 mg PO TID [facility] Last Admin: 02/10/18 09:33 Dose: Not Given Diphenhydramine HCl (Benadryl) 25 mg IVP Q8H PRN PRN Reason: Itching / Pruritus Last Admin: 02/09/18 21:26 Dose: 25 mg Epoetin Kevin (Procrit) 4,000 unit IV [facility] [place] Last Admin: 02/10/18 10:21 Dose: 4,000 unit Gabapentin (Neurontin) 300 mg PO MWF [facility] Last Admin: 02/10/18 09:29 Dose: Not Given Vancomycin HCl 500 mg/ Sodium (Chloride) 100 mls @ 100 mls/hr IVPB [facility] [place] PRN Reason: Protocol Last Admin: 02/10/18 09:29 Dose: Not Given Insulin Aspart (Novolog) 0 unit SC ACHS [facility] PRN Reason: Protocol Last Admin: 02/10/18 11:33 Dose: Not Given Insulin Glargine (Lantus) 15 unit SC ACBD [facility] Last Admin: 02/10/18 07:52 Dose: Not Given Losartan Potassium (Cozaar) 100 mg PO DAILY [facility] Last Admin: 02/10/18 09:32 Dose: Not Given Metoprolol Tartrate (Lopressor) 50 mg PO BID [facility] Last Admin: 02/10/18 09:32 Dose: Not Given Tramadol HCl (Ultram) 50 mg PO Q12H [facility] Last Admin: 02/10/18 08:33 Dose: Not Given - Labs Labs: 02/04/18 07:31 02/10/18 10:17 PT 13.7 SECONDS (9.7-12.2) H 01/24/18 06:20 INR 1.2 01/24/18 06:20 APTT 35 SECONDS (21-34) H 01/24/18 06:20 - Constitutional Appears: No Acute Distress, Chronically Ill - Head Exam Head Exam: ATRAUMATIC, NORMAL INSPECTION - Eye Exam Eye Exam: EOMI, Normal appearance - Neck Exam Neck Exam: Normal Inspection. absent: Tenderness - Respiratory Exam Respiratory Exam: Clear to Ausculation Bilateral, NORMAL BREATHING PATTERN - Cardiovascular Exam Cardiovascular Exam: REGULAR RHYTHM, +S1 - GI/Abdominal Exam GI & Abdominal Exam: Soft. absent: Tenderness - Extremities Exam Extremities Exam: Normal Inspection. absent: Tenderness - Neurological Exam Neurological Exam: Awake, CN II-XII Intact - Skin Skin Exam: Dry, Warm Assessment and Plan (1) CHF exacerbation Status: Acute (2) Controlled type 2 diabetes mellitus with diabetic nephropathy Status: Acute (3) ESRD (end stage renal disease) Status: Acute - Assessment and Plan (Free Text) Plan: dialysis now- UF 3000ml same BP meds AV access evaluation soon
--- NOTE | 2018-02-10 12:34 | CP.PCM.PN ---
Subjective - Date & Time of Evaluation Date of Evaluation: 02/10/18 Time of Evaluation: 07:00 - Subjective Subjective: no fever awaiting av fistula eval Objective - Vital Signs/Intake and Output Vital Signs (last 24 hours): Temp Pulse Resp BP Pulse Ox 98 F 77 18 140/95 H 100 02/10/18 09:15 02/10/18 09:15 02/10/18 09:15 02/10/18 12:15 02/10/18 09:15 Intake and Output: 02/10/18 02/10/18 06:59 18:59 Intake Total 420 Balance 420 - Medications Medications: Current Medications Amlodipine Besylate (Norvasc) 5 mg PO DAILY [facility] Last Admin: 02/10/18 09:33 Dose: Not Given Calcium Acetate (Phoslo) 667 mg PO TID [facility] Last Admin: 02/10/18 09:33 Dose: Not Given Diphenhydramine HCl (Benadryl) 25 mg IVP Q8H PRN PRN Reason: Itching / Pruritus Last Admin: 02/09/18 21:26 Dose: 25 mg Epoetin Kevin (Procrit) 4,000 [place] [facility] Last Admin: 02/10/18 10:21 Dose: 4,000 unit Gabapentin (Neurontin) 300 mg PO F [facility] Last Admin: 02/10/18 09:29 Dose: Not Given Vancomycin HCl 500 mg/ Sodium (Chloride) 100 mls @ 100 mls/hr [place]PB [facility] PRN Reason: Protocol Last Admin: 02/10/18 09:29 Dose: Not Given Insulin Aspart (Novolog) 0 unit SC ACHS [facility] PRN Reason: Protocol Last Admin: 02/10/18 11:33 Dose: Not Given Insulin Glargine (Lantus) 15 unit SC ACBD [facility] Last Admin: 02/10/18 07:52 Dose: Not Given Losartan Potassium (Cozaar) 100 mg PO DAILY [facility] Last Admin: 02/10/18 09:32 Dose: Not Given Metoprolol Tartrate (Lopressor) 50 mg PO BID [facility] Last Admin: 02/10/18 09:32 Dose: Not Given Tramadol HCl (Ultram) 50 mg PO Q12H [facility] Last Admin: 02/10/18 08:33 Dose: Not Given - Labs Labs: 02/04/18 07:31 02/10/18 10:17 PT 13.7 SECONDS (9.7-12.2) H 01/24/18 06:20 INR 1.2 01/24/18 06:20 APTT 35 SECONDS (21-34) H 01/24/18 06:20 - Constitutional Appears: Non-toxic, Chronically Ill - Head Exam Head Exam: NORMOCEPHALIC - Eye Exam Eye Exam: PERRL. absent: Scleral icterus - ENT Exam ENT Exam: Mucous Membranes Dry - Neck Exam Neck Exam: absent: Lymphadenopathy - Respiratory Exam Respiratory Exam: Decreased Breath Sounds - Cardiovascular Exam Cardiovascular Exam: REGULAR RHYTHM - GI/Abdominal Exam GI & Abdominal Exam: Distended, Soft Assessment and Plan (1) Cholecystitis Status: Ruled-out (2) Abdominal pain Status: Acute (3) Hyperglycemia Status: Acute (4) JOSE MIGUEL (acute kidney injury) Status: Acute (5) Controlled type 2 diabetes mellitus with diabetic nephropathy Status: Acute (6) Diabetes mellitus with ESRD (end-stage renal disease) Status: Acute (7) Diabetes mellitus with chronic kidney disease Status: Acute (8) Diabetic nephropathy Status: Acute (9) ESRD (end stage renal disease) on dialysis Status: Acute (10) Intractable vomiting Status: Acute (11) CHF exacerbation Status: Acute (12) CHF (congestive heart failure) Status: Acute (13) Volume overload Status: Acute (14) Volume overload Status: Acute
[2018-02-10] MEDS ORDERED: Iohexol 240 200 ML ONE (13:24)
[2018-02-10] MEDS ORDERED: HEPARIN-NS 5,000 UNITS/500 ML 5,000 UNIT/500 ML BAG IV ONE (13:24)
[2018-02-10] MEDS ORDERED: ceFAZolin IV 1 gm in Dextrose 1 GM/50 ML BAG IVPB ONE (13:24)
[2018-02-10] MEDS ORDERED: Lidocaine 1% Inj (20ml) INFIL ONE (13:43)
[2018-02-10] MEDS ORDERED: Midazolam 2 MG/2 ML VIAL ONE (13:47)
[2018-02-10] MEDS ORDERED: HYDROmorphone 0.5 mg/0.5 ml ISec IVP PRN (14:54)
--- NOTE | 2018-02-10 14:56 | PCM.SURG1 ---
Surgeon's Initial Post Op Note - Surgeon's Notes Surgeon: Dr. Samaniego [employer] Bus Dispatcher: Dr. Patiño, PGY-3 Type of Anesthesia: IV Sedation, Local Anesthesia Administered By: Dr. York Pre-Operative Diagnosis: Malfunctioning L arm AVF Operative Findings: See operative report Post-Operative Diagnosis: same Operation Performed: Fistulogram with Balloon Angioplasty of stenotic shunt Specimen/Specimens Removed: none Estimated Blood Loss: EBL {In ML}: 20 Blood Products Given: N/A Drains Used: No Drains Post-Op Condition: Good Date of Surgery/Procedure: 02/10/18 Time of Surgery/Procedure: 14:56
--- NOTE | 2018-02-10 15:55 | RAD ---
PROCEDURE: Intraoperative Fluoroscopy. HISTORY: MALFUNCTIONING SHUNT FINDINGS: Fluoroscopic assistance was provided for left sided AV shunt repair. Please refer to the operative report from GEORGINA Saenz.
[2018-02-10] MEDS ORDERED: Morphine 4 MG/ML VIAL IVP ONE (16:30)
--- NOTE | 2018-02-10 18:43 | CP.PCM.PN ---
Subjective - Date & Time of Evaluation Date of Evaluation: 02/10/18 Time of Evaluation: 18:43 Objective - Vital Signs/Intake and Output Vital Signs (last 24 hours): Temp Pulse Resp BP Pulse Ox 97.2 F L 80 20 151/85 H 96 02/10/18 16:20 02/10/18 16:20 02/10/18 16:20 02/10/18 16:20 02/10/18 16:20 Intake and Output: 02/10/18 02/10/18 06:59 18:59 Intake Total 420 250 Balance 420 250 - Medications Medications: Current Medications Amlodipine Besylate (Norvasc) 5 mg PO DAILY [facility] Last Admin: 02/10/18 09:33 Dose: Not Given Calcium Acetate (Phoslo) 667 mg PO TID [facility] Last Admin: 02/10/18 17:37 Dose: 667 mg Diphenhydramine HCl (Benadryl) 25 mg IVP Q8H PRN PRN Reason: Itching / Pruritus Last Admin: 02/09/18 21:26 Dose: 25 mg Epoetin Kevin (Procrit) 4,000 unit IV [facility] Last Admin: 02/10/18 10:21 Dose: 4,000 unit Gabapentin (Neurontin) 300 mg PO F [facility] Last Admin: 02/10/18 09:29 Dose: Not Given Vancomycin HCl 500 mg/ Sodium (Chloride) 100 mls @ 100 mls/hr IVPB [facility] PRN Reason: Protocol Last Admin: 02/10/18 09:29 Dose: Not Given Insulin Aspart (Novolog) 0 unit SC ACHS [facility] PRN Reason: Protocol Last Admin: 02/10/18 16:40 Dose: Not Given Insulin Glargine (Lantus) 15 unit SC ACBD [facility] Last Admin: 02/10/18 16:40 Dose: Not Given Losartan Potassium (Cozaar) 100 mg PO DAILY [facility] Last Admin: 02/10/18 09:32 Dose: Not Given Metoprolol Tartrate (Lopressor) 50 mg PO BID [facility] Last Admin: 02/10/18 17:37 Dose: 50 mg Tramadol HCl (Ultram) 50 mg PO Q12H [facility] Last Admin: 02/10/18 08:33 Dose: Not Given - Labs Labs: 02/04/18 07:31 02/10/18 10:17 PT 13.7 SECONDS (9.7-12.2) H 01/24/18 06:20 INR 1.2 01/24/18 06:20 APTT 35 SECONDS (21-34) H 01/24/18 06:20
[2018-02-10] MEDS: DiphenhydrAMINE 50 mg/ml Inj IVP PRN (22:33)
--- NOTE | 2018-02-11 02:24 | OP ---
PROCEDURE DATE: 02/10/2018 PREOPERATIVE DIAGNOSIS: Malfunctioning shunt, left arm. PROCEDURE CARRIED OUT: 1. Fistulogram, left arm. 2. Balloon angioplasty of venous anastomosis. SURGEON: Simon Samaniego MD PHYSICIAN NEONATOLOGY: Dr. Patiño ANESTHESIOLOGIST: Mr. Daniel. TYPE OF ANESTHESIA: Local with sedation. INDICATIONS: The patient is a middle-aged woman on dialysis, had problems with accessing her shunt. 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 OPERATIVE FINDINGS: The initial films did not show any evidence of central venous stenosis and it did not show evidence of arterial stenosis as both the arterial and venous sites of the shunt outflow tract were visualized. At the venous anastomosis, however there was a tight stenosis, which was dilated with an 8-mm balloon (which was the size of the shunt) and this was successfully dilated to 8 mm. There was ____ seen on the films. After this had been done, pressure was applied to the puncture site and two small 7-0 sutures were placed here. Blood loss during the procedure was 25 mL. Operation carried out is fistulogram left arm with balloon angioplasty 8 mm of venous outflow tract at the venous anastomosis. Simon Samaniego Jr., MD
[2018-02-11] MEDS: (Novolog) Insulin Aspart, Recombinant 100 u/ml 10 ml vial SC SCH ×4 (08:29→21:28)
[2018-02-11] MEDS: (Lantus) Insulin Glargine, Recombinant SC SCH ×2 (08:30→17:08)
[2018-02-11] MEDS ORDERED: Vitamins A & D Oint UD Foilpak TOP SCH (10:30)
--- NOTE | 2018-02-11 10:53 | CP.PCM.PN ---
Subjective - Date & Time of Evaluation Date of Evaluation: 02/11/18 Time of Evaluation: 10:52 - Subjective Subjective: seen and examined up in bed denies any nausea vomiting diarrhea sob fevers chills cough pain headache s/p angioplasty of lue avf Objective - Vital Signs/Intake and Output Vital Signs (last 24 hours): Temp Pulse Resp BP Pulse Ox 98.5 F 79 18 150/85 97 02/11/18 07:30 02/11/18 07:30 02/11/18 07:30 02/11/18 07:30 02/11/18 07:30 Intake and Output: 02/11/18 02/11/18 06:59 18:59 Intake Total 380 Balance 380 - Medications Medications: Current Medications Amlodipine Besylate (Norvasc) 5 mg PO DAILY [facility] Last Admin: 02/11/18 10:36 Dose: 5 mg Calcium Acetate (Phoslo) 667 mg PO TID [facility] Last Admin: 02/11/18 10:36 Dose: 667 mg Diphenhydramine HCl (Benadryl) 25 mg IVP Q8H PRN PRN Reason: Itching / Pruritus Last Admin: 02/10/18 22:33 Dose: 25 mg Epoetin Kevin (Procrit) 4,000 unit IV [facility] [place] Last Admin: 02/10/18 10:21 Dose: 4,000 unit Gabapentin (Neurontin) 300 mg PO MWF [facility] Last Admin: 02/10/18 09:29 Dose: Not Given Vancomycin HCl 500 mg/ Sodium (Chloride) 100 mls @ 100 mls/hr IVPB [facility] [place] PRN Reason: Protocol Last Admin: 02/10/18 09:29 Dose: Not Given Insulin Aspart (Novolog) 0 unit SC ACHS [facility] PRN Reason: Protocol Last Admin: 02/11/18 08:29 Dose: 10 unit Insulin Glargine (Lantus) 15 unit SC ACBD [facility] Last Admin: 02/11/18 08:30 Dose: 15 units Losartan Potassium (Cozaar) 100 mg PO DAILY [facility] Last Admin: 02/11/18 10:36 Dose: 100 mg Metoprolol Tartrate (Lopressor) 50 mg PO BID [facility] Last Admin: 02/11/18 10:36 Dose: 50 mg Tramadol HCl (Ultram) 50 mg PO Q12H [facility] Last Admin: 02/11/18 08:30 Dose: 50 mg Vitamin A (Vitamin A & D Oint Ud Foilpak) 1 ea TOP BID [facility] - Labs Labs: 02/04/18 07:31 02/10/18 10:17 PT 13.7 SECONDS (9.7-12.2) H 01/24/18 06:20 INR 1.2 01/24/18 06:20 APTT 35 SECONDS (21-34) H 01/24/18 06:20 - Constitutional Appears: Non-toxic, No Acute Distress, Chronically Ill - Head Exam Head Exam: NORMAL INSPECTION, NORMOCEPHALIC - Eye Exam Eye Exam: Normal appearance, PERRL - ENT Exam ENT Exam: Mucous Membranes Moist, Normal Exam - Neck Exam Neck Exam: Full ROM, Normal Inspection - Respiratory Exam Respiratory Exam: Decreased Breath Sounds, NORMAL BREATHING PATTERN - Cardiovascular Exam Cardiovascular Exam: REGULAR RHYTHM, RRR - GI/Abdominal Exam GI & Abdominal Exam: Distended, Soft, Normal Bowel Sounds - Extremities Exam Extremities Exam: Normal Inspection (lue avf w/ thrill) - Neurological Exam Neurological Exam: Alert, Awake, Oriented x3 - Psychiatric Exam Psychiatric exam: Normal Affect, Normal Mood - Skin Skin Exam: Dry, Intact, Normal Color Assessment and Plan (1) Abdominal pain Status: Acute (2) Hyperglycemia Status: Acute (3) Anemia Status: Acute (4) ESRD (end stage renal disease) on dialysis Status: Acute (5) Hypertension associated with chronic kidney disease due to type 1 diabetes mellitus Status: Acute - Assessment and Plan (Free Text) Assessment: maintain hd mwf, use avf stable from renal standpoint outpt hd at [facility]- will follow
--- NOTE | 2018-02-11 13:35 | CP.PCM.PN ---
Subjective - Date & Time of Evaluation Date of Evaluation: 02/11/18 Time of Evaluation: 08:00 - Subjective Subjective: Surgery; Dr. Samaniego Pt seen and examined. States she's feeling ok this morning and denies any complaints. Pt getting HD on MWF so will be getting dialysis tomorrow via the AVF. Denies F/C. Objective - Vital Signs/Intake and Output Vital Signs (last 24 hours): Temp Pulse Resp BP Pulse Ox 98.5 F 79 18 150/85 97 02/11/18 07:30 02/11/18 07:30 02/11/18 07:30 02/11/18 07:30 02/11/18 07:30 Intake and Output: 02/11/18 02/11/18 06:59 18:59 Intake Total 380 Balance 380 - Medications Medications: Current Medications Amlodipine Besylate (Norvasc) 5 mg PO DAILY [facility] Last Admin: 02/11/18 10:36 Dose: 5 mg Calcium Acetate (Phoslo) 667 mg PO TID [facility] Last Admin: 02/11/18 10:36 Dose: 667 mg Diphenhydramine HCl (Benadryl) 25 mg IVP Q8H PRN PRN Reason: Itching / Pruritus Last Admin: 02/10/18 22:33 Dose: 25 mg Epoetin Kevin (Procrit) 4,000 unit IV [facility] [place] Last Admin: 02/10/18 10:21 Dose: 4,000 unit Gabapentin (Neurontin) 300 mg PO F [facility] Last Admin: 02/10/18 09:29 Dose: Not Given Vancomycin HCl 500 mg/ Sodium (Chloride) 100 mls @ 100 mls/hr IVPB [facility] [place] PRN Reason: Protocol Last Admin: 02/10/18 09:29 Dose: Not Given Insulin Aspart (Novolog) 0 unit SC ACHS [facility] PRN Reason: Protocol Last Admin: 02/11/18 12:46 Dose: 4 unit Insulin Glargine (Lantus) 15 unit SC ACBD [facility] Last Admin: 02/11/18 08:30 Dose: 15 units Losartan Potassium (Cozaar) 100 mg PO DAILY [facility] Last Admin: 02/11/18 10:36 Dose: 100 mg Metoprolol Tartrate (Lopressor) 50 mg PO BID [facility] Last Admin: 02/11/18 10:36 Dose: 50 mg Tramadol HCl (Ultram) 50 mg PO Q12H [facility] Last Admin: 02/11/18 08:30 Dose: 50 mg Vitamin A (Vitamin A & D Oint Ud Foilpak) 1 ea TOP BID [facility] - Labs Labs: 02/04/18 07:31 02/10/18 10:17 PT 13.7 SECONDS (9.7-12.2) H 01/24/18 06:20 INR 1.2 01/24/18 06:20 APTT 35 SECONDS (21-34) H 01/24/18 06:20 - Constitutional Appears: Well, No Acute Distress - Head Exam Head Exam: ATRAUMATIC, NORMOCEPHALIC - Eye Exam Eye Exam: Normal appearance - ENT Exam ENT Exam: Mucous Membranes Moist - Respiratory Exam Respiratory Exam: NORMAL BREATHING PATTERN - Cardiovascular Exam Cardiovascular Exam: RRR - GI/Abdominal Exam GI & Abdominal Exam: Soft - Extremities Exam Additional comments: warm, 2+ distal pulses in b/l UE. L arm AVF with palpable thrill, dressing clean /dry/intact - Neurological Exam Neurological Exam: Alert, Awake, Oriented x3 - Skin Skin Exam: Warm Assessment and Plan - Assessment and Plan (Free Text) Assessment: 42F with malfunctioning AVF s/p fistulogram & balloon angioplasty of shunt; POD# 1 Plan: - ok to use AVF for HD tomorrow - groin shiley can be removed once AVF is used for HD and working properly - no other surgical intervention at this time - d/w Dr. Danette Patiño, PGY-3
[2018-02-11] MEDS: Vitamins A & D Oint UD Foilpak TOP SCH (17:11)
--- NOTE | 2018-02-11 19:10 | CP.PCM.PN ---
Subjective - Date & Time of Evaluation Date of Evaluation: 02/11/18 Time of Evaluation: 19:10 Objective - Vital Signs/Intake and Output Vital Signs (last 24 hours): Temp Pulse Resp BP Pulse Ox 97.4 F L 80 20 134/66 98 02/11/18 15:45 02/11/18 15:45 02/11/18 15:45 02/11/18 15:45 02/11/18 15:45 Intake and Output: 02/11/18 02/12/18 18:59 06:59 Output Total 0 Balance 0 - Medications Medications: Current Medications Amlodipine Besylate (Norvasc) 5 mg PO DAILY [facility] Last Admin: 02/11/18 10:36 Dose: 5 mg Calcium Acetate (Phoslo) 667 mg PO TID [facility] Last Admin: 02/11/18 17:08 Dose: 667 mg Diphenhydramine HCl (Benadryl) 25 mg IVP Q8H PRN PRN Reason: Itching / Pruritus Last Admin: 02/10/18 22:33 Dose: 25 mg Epoetin Kevin (Procrit) 4,000 [place] [facility] Last Admin: 02/10/18 10:21 Dose: 4,000 unit Gabapentin (Neurontin) 300 mg PO F [facility] Last Admin: 02/10/18 09:29 Dose: Not Given Vancomycin HCl 500 mg/ Sodium (Chloride) 100 mls @ 100 mls/hr IVPB [facility] PRN Reason: Protocol Last Admin: 02/10/18 09:29 Dose: Not Given Insulin Aspart (Novolog) 0 unit SC ACHS [facility] PRN Reason: Protocol Last Admin: 02/11/18 17:10 Dose: Not Given Insulin Glargine (Lantus) 15 unit SC ACBD [facility] Last Admin: 02/11/18 17:08 Dose: 15 units Losartan Potassium (Cozaar) 100 mg PO DAILY [facility] Last Admin: 02/11/18 10:36 Dose: 100 mg Metoprolol Tartrate (Lopressor) 50 mg PO BID [facility] Last Admin: 02/11/18 17:08 Dose: 50 mg Tramadol HCl (Ultram) 50 mg PO Q12H [facility] Last Admin: 02/11/18 08:30 Dose: 50 mg Vitamin A (Vitamin A & D Oint Ud Foilpak) 1 ea TOP BID [facility] Last Admin: 02/11/18 17:11 Dose: 1 ea - Labs Labs: 02/04/18 07:31 02/10/18 10:17 PT 13.7 SECONDS (9.7-12.2) H 01/24/18 06:20 INR 1.2 01/24/18 06:20 APTT 35 SECONDS (21-34) H 01/24/18 06:20
[2018-02-11] MEDS: DiphenhydrAMINE 50 mg/ml Inj IVP PRN (22:02)
[2018-02-12] MEDS: (Novolog) Insulin Aspart, Recombinant 100 u/ml 10 ml vial SC SCH ×4 (08:05→21:34)
[2018-02-12] MEDS: (Lantus) Insulin Glargine, Recombinant SC SCH ×2 (08:05→17:30)
[2018-02-12] MEDS: Vitamins A & D Oint UD Foilpak TOP SCH ×2 (09:09→17:30)
[2018-02-12] MEDS: EPOETIN ALFA 4,000 UNIT/ML ML Dialysis IV SCH (11:07)
--- NOTE | 2018-02-12 12:50 | CP.PCM.PN ---
Subjective - Date & Time of Evaluation Date of Evaluation: 02/12/18 Time of Evaluation: 12:48 - Subjective Subjective: seen on dialysis to UF 3000ml AVF being used 1 needle as pull; s/p balloon angioplasty tolerating dialysis well no CHF sxs Objective - Vital Signs/Intake and Output Vital Signs (last 24 hours): Temp Pulse Resp BP Pulse Ox 98 F 79 17 152/102 H 100 02/12/18 09:40 02/12/18 11:30 02/12/18 11:30 02/12/18 11:30 02/12/18 11:30 - Medications Medications: Current Medications Amlodipine Besylate (Norvasc) 5 mg PO DAILY [facility] Last Admin: 02/12/18 09:07 Dose: 5 mg Calcium Acetate (Phoslo) 667 mg PO TID [facility] Last Admin: 02/12/18 09:09 Dose: 667 mg Diphenhydramine HCl (Benadryl) 25 mg IVP Q8H PRN PRN Reason: Itching / Pruritus Last Admin: 02/11/18 22:02 Dose: 25 mg Epoetin Kevin (Procrit) 4,000 unit IV MWF [facility] Last Admin: 02/12/18 11:07 Dose: 4,000 unit Gabapentin (Neurontin) 300 mg PO F [facility] Last Admin: 02/12/18 09:09 Dose: 300 mg Vancomycin HCl 500 mg/ Sodium (Chloride) 100 mls @ 100 mls/hr IVPB [facility] [place] PRN Reason: Protocol Last Admin: 02/10/18 09:29 Dose: Not Given Insulin Aspart (Novolog) 0 unit SC ACHS [facility] PRN Reason: Protocol Last Admin: 02/12/18 11:40 Dose: Not Given Insulin Glargine (Lantus) 15 unit SC ACBD [facility] Last Admin: 02/12/18 08:05 Dose: 15 units Losartan Potassium (Cozaar) 100 mg PO DAILY [facility] Last Admin: 02/12/18 09:09 Dose: 100 mg Metoprolol Tartrate (Lopressor) 50 mg PO BID [facility] Last Admin: 02/12/18 09:10 Dose: Not Given Tramadol HCl (Ultram) 50 mg PO Q12H [facility] Last Admin: 02/12/18 08:30 Dose: 50 mg Vitamin A (Vitamin A & D Oint Ud Foilpak) 1 ea TOP BID [facility] Last Admin: 02/12/18 09:09 Dose: 1 ea - Labs Labs: 02/04/18 07:31 02/10/18 10:17 PT 13.7 SECONDS (9.7-12.2) H 01/24/18 06:20 INR 1.2 01/24/18 06:20 APTT 35 SECONDS (21-34) H 01/24/18 06:20 - Constitutional Appears: No Acute Distress, Chronically Ill - Head Exam Head Exam: ATRAUMATIC, NORMAL INSPECTION - Eye Exam Eye Exam: EOMI, Normal appearance - Neck Exam Neck Exam: Normal Inspection. absent: Tenderness - Respiratory Exam Respiratory Exam: Clear to Ausculation Bilateral, NORMAL BREATHING PATTERN - Cardiovascular Exam Cardiovascular Exam: REGULAR RHYTHM, +S1 - GI/Abdominal Exam GI & Abdominal Exam: Soft. absent: Tenderness - Extremities Exam Extremities Exam: Normal Inspection. absent: Tenderness - Neurological Exam Neurological Exam: Awake, CN II-XII Intact - Skin Skin Exam: Dry, Warm Assessment and Plan (1) CHF exacerbation Status: Acute (2) Controlled type 2 diabetes mellitus with diabetic nephropathy Status: Acute (3) ESRD (end stage renal disease) Status: Acute - Assessment and Plan (Free Text) Plan: dilaysis MWF Same meds 1 needle AVF Next dialysis - 2 needlles AV F eventually remove fem cath
--- NOTE | 2018-02-12 14:22 | CP.PCM.PN ---
Subjective - Date & Time of Evaluation Date of Evaluation: 02/12/18 Time of Evaluation: 07:00 - Subjective Subjective: 1 LBM last night- c diff sent + denies fever diarrhea abd pain at present will rx empirically Objective - Vital Signs/Intake and Output Vital Signs (last 24 hours): Temp Pulse Resp BP Pulse Ox 97.5 F L 80 18 152/90 H 100 02/12/18 13:15 02/12/18 13:30 02/12/18 13:30 02/12/18 13:15 02/12/18 13:30 - Medications Medications: Current Medications Amlodipine Besylate (Norvasc) 5 mg PO DAILY [facility] Last Admin: 02/12/18 09:07 Dose: 5 mg Calcium Acetate (Phoslo) 667 mg PO TID [facility] Last Admin: 02/12/18 14:00 Dose: 667 mg Diphenhydramine HCl (Benadryl) 25 mg IVP Q8H PRN PRN Reason: Itching / Pruritus Last Admin: 02/11/18 22:02 Dose: 25 mg Epoetin Kevin (Procrit) 4,000 unit IV [facility] [place] Last Admin: 02/12/18 11:07 Dose: 4,000 unit Gabapentin (Neurontin) 300 mg PO F [facility] Last Admin: 02/12/18 09:09 Dose: 300 mg Vancomycin HCl 500 mg/ Sodium (Chloride) 100 mls @ 100 mls/hr IVPB [facility] PRN Reason: Protocol Last Admin: 02/12/18 14:00 Dose: 100 mls/hr Insulin Aspart (Novolog) 0 unit SC ACHS [facility] PRN Reason: Protocol Last Admin: 02/12/18 11:40 Dose: Not Given Insulin Glargine (Lantus) 15 unit SC ACBD [facility] Last Admin: 02/12/18 08:05 Dose: 15 units Losartan Potassium (Cozaar) 100 mg PO DAILY [facility] Last Admin: 02/12/18 09:09 Dose: 100 mg Metoprolol Tartrate (Lopressor) 50 mg PO BID [facility] Last Admin: 02/12/18 09:10 Dose: Not Given Tramadol HCl (Ultram) 50 mg PO Q12H [facility] Last Admin: 02/12/18 08:30 Dose: 50 mg Vitamin A (Vitamin A & D Oint Ud Foilpak) 1 ea TOP BID [facility] Last Admin: 02/12/18 09:09 Dose: 1 ea - Labs Labs: 02/04/18 07:31 02/10/18 10:17 PT 13.7 SECONDS (9.7-12.2) H 01/24/18 06:20 INR 1.2 01/24/18 06:20 APTT 35 SECONDS (21-34) H 01/24/18 06:20 Assessment and Plan (1) Cholecystitis Status: Ruled-out (2) Abdominal pain Status: Acute (3) Hyperglycemia Status: Acute (4) JOSE MIGUEL (acute kidney injury) Status: Acute (5) Controlled type 2 diabetes mellitus with diabetic nephropathy Status: Acute (6) Diabetes mellitus with ESRD (end-stage renal disease) Status: Acute (7) Diabetes mellitus with chronic kidney disease Status: Acute (8) Diabetic nephropathy Status: Acute (9) ESRD (end stage renal disease) on dialysis Status: Acute (10) Intractable vomiting Status: Acute (11) CHF exacerbation Status: Acute (12) CHF (congestive heart failure) Status: Acute (13) Volume overload Status: Acute (14) Volume overload Status: Acute
[2018-02-12] MEDS: Vancomycin 125 MG/5 ML SOLN (ORAL/RECTAL) PO SCH ×2 (17:29→21:24)
[2018-02-12] MEDS: DiphenhydrAMINE 50 mg/ml Inj IVP PRN (21:24)
[2018-02-13] MEDS: (Novolog) Insulin Aspart, Recombinant 100 u/ml 10 ml vial SC SCH ×4 (07:30→21:45)
[2018-02-13] MEDS: (Lantus) Insulin Glargine, Recombinant SC SCH ×2 (07:45→17:49)
[2018-02-13] MEDS: Vancomycin 125 MG/5 ML SOLN (ORAL/RECTAL) PO SCH ×4 (09:34→21:56)
[2018-02-13] MEDS: Vitamins A & D Oint UD Foilpak TOP SCH ×2 (09:34→17:48)
--- NOTE | 2018-02-13 09:37 | CP.PCM.PN ---
Subjective - Date & Time of Evaluation Date of Evaluation: 02/13/18 Time of Evaluation: 09:34 - Subjective Subjective: stable dialysis 02/12 c.diff positive; on treatment for c.diff fem cath pulled now will use 2 needles AVF next dialysis in AM Objective - Vital Signs/Intake and Output Vital Signs (last 24 hours): Temp Pulse Resp BP Pulse Ox 98.3 F 87 20 150/85 98 02/13/18 07:40 02/13/18 07:40 02/13/18 07:40 02/13/18 07:40 02/13/18 07:40 - Medications Medications: Current Medications Amlodipine Besylate (Norvasc) 5 mg PO DAILY [facility] Last Admin: 02/12/18 09:07 Dose: 5 mg Calcium Acetate (Phoslo) 667 mg PO TID [facility] Last Admin: 02/12/18 17:30 Dose: 667 mg Diphenhydramine HCl (Benadryl) 25 mg IVP Q8H PRN PRN Reason: Itching / Pruritus Last Admin: 02/12/18 21:24 Dose: 25 mg Epoetin Kevin (Procrit) 4,000 unit IV MWF [facility] Last Admin: 02/12/18 11:07 Dose: 4,000 unit Gabapentin (Neurontin) 300 mg PO MWF [facility] Last Admin: 02/12/18 09:09 Dose: 300 mg Vancomycin HCl 500 mg/ Sodium (Chloride) 100 mls @ 100 mls/hr IVPB [facility] [place] PRN Reason: Protocol Last Admin: 02/12/18 14:00 Dose: 100 mls/hr Insulin Aspart (Novolog) 0 unit SC ACHS [facility] PRN Reason: Protocol Last Admin: 02/13/18 07:30 Dose: Not Given Insulin Glargine (Lantus) 15 unit SC ACBD [facility] Last Admin: 02/13/18 07:45 Dose: Not Given Losartan Potassium (Cozaar) 100 mg PO DAILY [facility] Last Admin: 02/12/18 09:09 Dose: 100 mg Metoprolol Tartrate (Lopressor) 50 mg PO BID [facility] Last Admin: 02/12/18 17:30 Dose: 50 mg Tramadol HCl (Ultram) 50 mg PO Q12H [facility] Last Admin: 02/13/18 08:05 Dose: 50 mg Vancomycin HCl (Vancocin (Oral Or Rectal Use)) 125 mg PO QID [facility] PRN Reason: Protocol Last Admin: 02/12/18 21:24 Dose: 125 mg Vitamin A (Vitamin A & D Oint Ud Foilpak) 1 ea TOP BID [facility] Last Admin: 02/12/18 17:30 Dose: 1 ea - Labs Labs: 02/04/18 07:31 02/10/18 10:17 PT 13.7 SECONDS (9.7-12.2) H 01/24/18 06:20 INR 1.2 01/24/18 06:20 APTT 35 SECONDS (21-34) H 01/24/18 06:20 - Constitutional Appears: No Acute Distress, Chronically Ill - Head Exam Head Exam: ATRAUMATIC, NORMAL INSPECTION - Eye Exam Eye Exam: EOMI, Normal appearance - Neck Exam Neck Exam: Normal Inspection. absent: Tenderness - Respiratory Exam Respiratory Exam: Clear to Ausculation Bilateral, NORMAL BREATHING PATTERN - Cardiovascular Exam Cardiovascular Exam: REGULAR RHYTHM, +S1 - GI/Abdominal Exam GI & Abdominal Exam: Soft. absent: Tenderness - Extremities Exam Extremities Exam: Normal Inspection. absent: Tenderness - Neurological Exam Neurological Exam: Awake, CN II-XII Intact - Skin Skin Exam: Dry, Warm Assessment and Plan (1) CHF exacerbation Status: Acute (2) Controlled type 2 diabetes mellitus with diabetic nephropathy Status: Acute (3) ESRD (end stage renal disease) Status: Acute (4) C. difficile colitis Status: Acute - Assessment and Plan (Free Text) Plan: treat c.diff dialysis MWF use AV fistula
--- NOTE | 2018-02-13 19:06 | CP.PCM.PN ---
Subjective - Date & Time of Evaluation Date of Evaluation: 02/12/18 Time of Evaluation: 17:25 Objective - Vital Signs/Intake and Output Vital Signs (last 24 hours): Temp Pulse Resp BP Pulse Ox 98.3 F 92 H 20 138/79 95 02/13/18 16:34 02/13/18 16:34 02/13/18 16:34 02/13/18 16:34 02/13/18 16:34 - Medications Medications: Current Medications Amlodipine Besylate (Norvasc) 5 mg PO DAILY [facility] Last Admin: 02/13/18 09:34 Dose: 5 mg Calcium Acetate (Phoslo) 667 mg PO TID [facility] Last Admin: 02/13/18 13:21 Dose: 667 mg Diphenhydramine HCl (Benadryl) 25 mg IVP Q8H PRN PRN Reason: Itching / Pruritus Last Admin: 02/12/18 21:24 Dose: 25 mg Epoetin Kevin (Procrit) 4,000 unit IV [facility] Last Admin: 02/12/18 11:07 Dose: 4,000 unit Gabapentin (Neurontin) 300 mg PO F [facility] Last Admin: 02/12/18 09:09 Dose: 300 mg Vancomycin HCl 500 mg/ Sodium (Chloride) 100 mls @ 100 mls/hr IVPB [facility] PRN Reason: Protocol Last Admin: 02/12/18 14:00 Dose: 100 mls/hr Insulin Aspart (Novolog) 0 unit SC ACHS [facility] PRN Reason: Protocol Last Admin: 02/13/18 17:48 Dose: 2 unit Insulin Glargine (Lantus) 15 unit SC ACBD [facility] Last Admin: 02/13/18 17:49 Dose: 15 units Losartan Potassium (Cozaar) 100 mg PO DAILY [facility] Last Admin: 02/13/18 09:34 Dose: 100 mg Metoprolol Tartrate (Lopressor) 50 mg PO BID [facility] Last Admin: 02/13/18 17:48 Dose: 50 mg Tramadol HCl (Ultram) 50 mg PO Q12H [facility] Last Admin: 02/13/18 08:05 Dose: 50 mg Vancomycin HCl (Vancocin (Oral Or Rectal Use)) 125 mg PO QID [facility] PRN Reason: Protocol Last Admin: 02/13/18 17:48 Dose: 125 mg Vitamin A (Vitamin A & D Oint Ud Foilpak) 1 ea TOP BID [facility] Last Admin: 02/13/18 17:48 Dose: 1 ea - Labs Labs: 02/04/18 07:31 02/10/18 10:17 PT 13.7 SECONDS (9.7-12.2) H 01/24/18 06:20 INR 1.2 01/24/18 06:20 APTT 35 SECONDS (21-34) H 01/24/18 06:20
--- NOTE | 2018-02-13 19:06 | CP.PCM.PN ---
Subjective - Date & Time of Evaluation Date of Evaluation: 02/13/18 Time of Evaluation: 19:06 Objective - Vital Signs/Intake and Output Vital Signs (last 24 hours): Temp Pulse Resp BP Pulse Ox 98.3 F 92 H 20 138/79 95 02/13/18 16:34 02/13/18 16:34 02/13/18 16:34 02/13/18 16:34 02/13/18 16:34 - Medications Medications: Current Medications Amlodipine Besylate (Norvasc) 5 mg PO DAILY [facility] Last Admin: 02/13/18 09:34 Dose: 5 mg Calcium Acetate (Phoslo) 667 mg PO TID [facility] Last Admin: 02/13/18 13:21 Dose: 667 mg Diphenhydramine HCl (Benadryl) 25 mg IVP Q8H PRN PRN Reason: Itching / Pruritus Last Admin: 02/12/18 21:24 Dose: 25 mg Epoetin Kevin (Procrit) 4,000 unit IV [facility] Last Admin: 02/12/18 11:07 Dose: 4,000 unit Gabapentin (Neurontin) 300 mg PO F [facility] Last Admin: 02/12/18 09:09 Dose: 300 mg Vancomycin HCl 500 mg/ Sodium (Chloride) 100 mls @ 100 mls/hr IVPB [facility] PRN Reason: Protocol Last Admin: 02/12/18 14:00 Dose: 100 mls/hr Insulin Aspart (Novolog) 0 unit SC ACHS [facility] PRN Reason: Protocol Last Admin: 02/13/18 17:48 Dose: 2 unit Insulin Glargine (Lantus) 15 unit SC ACBD [facility] Last Admin: 02/13/18 17:49 Dose: 15 units Losartan Potassium (Cozaar) 100 mg PO DAILY [facility] Last Admin: 02/13/18 09:34 Dose: 100 mg Metoprolol Tartrate (Lopressor) 50 mg PO BID [facility] Last Admin: 02/13/18 17:48 Dose: 50 mg Tramadol HCl (Ultram) 50 mg PO Q12H [facility] Last Admin: 02/13/18 08:05 Dose: 50 mg Vancomycin HCl (Vancocin (Oral Or Rectal Use)) 125 mg PO QID [facility] PRN Reason: Protocol Last Admin: 02/13/18 17:48 Dose: 125 mg Vitamin A (Vitamin A & D Oint Ud Foilpak) 1 ea TOP BID [facility] Last Admin: 02/13/18 17:48 Dose: 1 ea - Labs Labs: 02/04/18 07:31 02/10/18 10:17 PT 13.7 SECONDS (9.7-12.2) H 01/24/18 06:20 INR 1.2 01/24/18 06:20 APTT 35 SECONDS (21-34) H 01/24/18 06:20
[2018-02-13] MEDS: DiphenhydrAMINE 50 mg/ml Inj IVP PRN (21:56)
[2018-02-14] MEDS: (Novolog) Insulin Aspart, Recombinant 100 u/ml 10 ml vial SC SCH ×2 (08:01→12:28)
[2018-02-14] MEDS: (Lantus) Insulin Glargine, Recombinant SC SCH (08:20)
[2018-02-14] MEDS: EPOETIN ALFA 4,000 UNIT/ML ML Dialysis IV SCH (10:14)
--- NOTE | 2018-02-14 12:40 | CP.PCM.PN ---
Subjective - Date & Time of Evaluation Date of Evaluation: 02/14/18 Time of Evaluation: 12:40 - Subjective Subjective: PT CLEARED FOR D/C PER ATTENDING. PER [facility], THE FACILITY HAS AN ISOLATION BED FOR THE PT CONSIDERING A + CDIF SPECIMEN. CONFIRMED ABX DURATION WITH DR. LAL (SEE BELOW FOR DURATION). PT TO BE FOLLOWED BY DR. Erinn ROMO PER Jenna MANTILLA'S REQUEST; DR. ROMO MADE AWARE OF PT AND IN AGREEMENT TO FOLLOW. TO ARRANGE TRANSPORTATION TO [facility] THIS AFTERNOON. SEE BELOW FOR D/C PLAN. NO FURTHER ORDERS. -PLACE UNDER THE SERVICE OF DR. Megan ROMO WHILE AT [facility]---CALL UPON ARRIVAL TO [facility] FOR ADMITTING ORDERS. -CONTINUE DIALYSIS SCHEDULED AND ARRANGED BY SOCIAL WORK. -C-DIF PRECAUTIONS PER FACILITY PROTOCOL. -PER DR. LAL (ID),CONTINUE THE FOLLOWING: VANCOMYCIN 500 MG IV POST-DIALYSIS DAYS X7 DAYS (TO BE GIVEN ON 02/17, 02/19, 02/21, 02/24, 02/26, 02/28, AND LAST DOSE TO BE GIVEN ON 03/03). TO ALSO CONTINUE VANCOMYCIN 125 MG PO QID (4X/DAY) X7 DAYS ( 02/15/18-02/21/18). -CONTINUE MEDICATIONS PER THE MED REC FORM. -OXYGEN 2-3 LITERS/MIN VIA NASAL CANNULA NEEDED. -FOR FURTHER CONCERNS OR ORDERS, CONTACT DR. Erinn ROMO'S OFFICE. Objective - Vital Signs/Intake and Output Vital Signs (last 24 hours): Temp Pulse Resp BP Pulse Ox 97.5 F L 79 20 160/99 H 100 02/14/18 09:40 02/14/18 09:40 02/14/18 09:40 02/14/18 12:10 02/14/18 09:40 Intake and Output: 02/14/18 02/14/18 06:59 18:59 Intake Total 600 Balance 600 - Medications Medications: Current Medications Amlodipine Besylate (Norvasc) 5 mg PO DAILY [facility] Last Admin: 02/13/18 09:34 Dose: 5 mg Calcium Acetate (Phoslo) 667 mg PO TID [facility] Last Admin: 02/13/18 19:19 Dose: 667 mg Diphenhydramine HCl (Benadryl) 25 mg IVP Q8H PRN PRN Reason: Itching / Pruritus Last Admin: 02/13/18 21:56 Dose: 25 mg Epoetin Kevin (Procrit) 4,000 unit [place] [facility] [place] Last Admin: 02/14/18 10:14 Dose: 4,000 unit Gabapentin (Neurontin) 300 mg PO F [facility] Last Admin: 02/12/18 09:09 Dose: 300 mg Vancomycin HCl 500 mg/ Sodium (Chloride) 100 mls @ 100 mls/hr [place]PB [facility] [place] [place]N Reason: Protocol Last Admin: 02/12/18 14:00 Dose: 100 mls/hr Insulin Aspart (Novolog) 0 unit SC [facility] PRN Reason: Protocol Last Admin: 02/14/18 12:28 Dose: Not Given Insulin Glargine (Lantus) 15 unit SC ACBD [facility] Last Admin: 02/14/18 08:20 Dose: 15 units Losartan Potassium (Cozaar) 100 mg PO DAILY [facility] Last Admin: 02/13/18 09:34 Dose: 100 mg Metoprolol Tartrate (Lopressor) 50 mg PO BID [facility] Last Admin: 02/13/18 17:48 Dose: 50 mg Tramadol HCl (Ultram) 50 mg PO Q12H [facility] Last Admin: 02/14/18 08:20 Dose: 50 mg Vancomycin HCl (Vancocin (Oral Or Rectal Use)) 125 mg PO QID [facility] PRN Reason: Protocol Last Admin: 02/13/18 21:56 Dose: 125 mg Vitamin A (Vitamin A & D Oint Ud Foilpak) 1 ea TOP BID [facility] Last Admin: 02/13/18 17:48 Dose: 1 ea - Labs Labs: 02/04/18 07:31 02/10/18 10:17 PT 13.7 SECONDS (9.7-12.2) H 01/24/18 06:20 INR 1.2 01/24/18 06:20 APTT 35 SECONDS (21-34) H 01/24/18 06:20
[2018-02-14 14:25] VITALS: BP 159/85; PULSE 83; RESP 20; TEMP 98; O2SAT 98
[2018-02-14] MEDS: Vancomycin 125 MG/5 ML SOLN (ORAL/RECTAL) PO SCH ×2 (14:27→14:28)
[2018-02-14] MEDS: Vitamins A & D Oint UD Foilpak TOP SCH (14:28)
--- NOTE | 2018-02-14 14:30 | CP.PCM.PN ---
Subjective - Date & Time of Evaluation Date of Evaluation: 02/14/18 Time of Evaluation: 14:27 - Subjective Subjective: s/p dialysis now- UF 3000ml still with diarrhea AV fistula worked well Objective - Vital Signs/Intake and Output Vital Signs (last 24 hours): Temp Pulse Resp BP Pulse Ox 98.0 F 83 20 159/85 H 98 02/14/18 14:15 02/14/18 14:15 02/14/18 14:15 02/14/18 14:15 02/14/18 14:15 Intake and Output: 02/14/18 02/14/18 06:59 18:59 Intake Total 600 Balance 600 - Medications Medications: Current Medications Amlodipine Besylate (Norvasc) 5 mg PO DAILY [facility] Last Admin: 02/13/18 09:34 Dose: 5 mg Calcium Acetate (Phoslo) 667 mg PO TID [facility] Last Admin: 02/13/18 19:19 Dose: 667 mg Diphenhydramine HCl (Benadryl) 25 mg IVP Q8H PRN PRN Reason: Itching / Pruritus Last Admin: 02/13/18 21:56 Dose: 25 mg Epoetin Kevin (Procrit) 4,000 unit IV MWF [facility] Last Admin: 02/14/18 10:14 Dose: 4,000 unit Gabapentin (Neurontin) 300 mg PO MWF [facility] Last Admin: 02/12/18 09:09 Dose: 300 mg Vancomycin HCl 500 mg/ Sodium (Chloride) 100 mls @ 100 mls/hr IVPB F [facility] PRN Reason: Protocol Last Admin: 02/12/18 14:00 Dose: 100 mls/hr Insulin Aspart (Novolog) 0 unit SC ACHS [facility] PRN Reason: Protocol Last Admin: 02/14/18 12:28 Dose: Not Given Insulin Glargine (Lantus) 15 unit SC ACBD [facility] Last Admin: 02/14/18 08:20 Dose: 15 units Losartan Potassium (Cozaar) 100 mg PO DAILY [facility] Last Admin: 02/13/18 09:34 Dose: 100 mg Metoprolol Tartrate (Lopressor) 50 mg PO BID [facility] Last Admin: 02/13/18 17:48 Dose: 50 mg Tramadol HCl (Ultram) 50 mg PO Q12H [facility] Last Admin: 02/14/18 08:20 Dose: 50 mg Vancomycin HCl (Vancocin (Oral Or Rectal Use)) 125 mg PO QID [facility] PRN Reason: Protocol Last Admin: 02/13/18 21:56 Dose: 125 mg Vitamin A (Vitamin A & D Oint Ud Foilpak) 1 ea TOP BID [facility] Last Admin: 02/13/18 17:48 Dose: 1 ea - Labs Labs: 02/04/18 07:31 02/10/18 10:17 PT 13.7 SECONDS (9.7-12.2) H 01/24/18 06:20 INR 1.2 01/24/18 06:20 APTT 35 SECONDS (21-34) H 01/24/18 06:20 - Constitutional Appears: Non-toxic, No Acute Distress, Chronically Ill - Head Exam Head Exam: ATRAUMATIC, NORMAL INSPECTION - Eye Exam Eye Exam: EOMI, Normal appearance - Neck Exam Neck Exam: Normal Inspection. absent: Tenderness - Respiratory Exam Respiratory Exam: Clear to Ausculation Bilateral, NORMAL BREATHING PATTERN - Cardiovascular Exam Cardiovascular Exam: REGULAR RHYTHM, +S1 - GI/Abdominal Exam GI & Abdominal Exam: Soft. absent: Tenderness - Extremities Exam Extremities Exam: Normal Inspection. absent: Tenderness - Neurological Exam Neurological Exam: Alert, CN II-XII Intact - Skin Skin Exam: Dry, Warm Assessment and Plan (1) CHF exacerbation Status: Acute (2) Controlled type 2 diabetes mellitus with diabetic nephropathy Status: Acute (3) ESRD (end stage renal disease) Status: Acute (4) C. difficile colitis Status: Acute - Assessment and Plan (Free Text) Plan: Same dialysis MWF treat c.diff f/u labs
== END 2018-02-14 15:13 | DRG 553 ==
LOC: C.ER 08:46 → C.9E 12:32 → C.3T 12:48 → C.9E 17:55 → C.6T 18:56 → C.9I 01-21 17:34 → C.6T 01-27 19:34 → C.5S 02-12 20:38
PROVIDERS: ADMIT Internal Medicine; ATTEND Internal Medicine Critical Care Medicine
PROC: 0BH17EZ Insertion of Endotracheal Airway into Trachea, Via Natural or Artificial Opening (ICD-10-PCS; principal; 2018-01-21)
PROC: 5A1945Z Respiratory Ventilation, 24-96 Consecutive Hours (ICD-10-PCS; 2018-01-21)
PROC: 05HM33Z Insertion of Infusion Device into Right Internal Jugular Vein, Percutaneous Approach (ICD-10-PCS; 2018-01-21)
PROC: 5A1D70Z Performance of Urinary Filtration, Intermittent, Less than 6 Hours Per Day (ICD-10-PCS; 2018-01-21)
PROC: 0W9G3ZZ Drainage of Peritoneal Cavity, Percutaneous Approach (ICD-10-PCS; 2018-01-22)
PROC: 5A1D70Z Performance of Urinary Filtration, Intermittent, Less than 6 Hours Per Day (ICD-10-PCS; 2018-01-24)
PROC: 5A1D70Z Performance of Urinary Filtration, Intermittent, Less than 6 Hours Per Day (ICD-10-PCS; 2018-01-27)
PROC: 05HM33Z Insertion of Infusion Device into Right Internal Jugular Vein, Percutaneous Approach (ICD-10-PCS; 2018-02-07)
PROC: B543ZZA Ultrasonography of Right Jugular Veins, Guidance (ICD-10-PCS; 2018-02-07)
PROC: 057Y3ZZ Dilation of Upper Vein, Percutaneous Approach (ICD-10-PCS; 2018-02-10)
PROC: B50WYZZ Plain Radiography of Dialysis Shunt/Fistula using Other Contrast (ICD-10-PCS; 2018-02-10)
DX: A04.72 Enterocolitis due to Clostridium difficile, not specified as recurrent (principal); N17.9 Acute kidney failure, unspecified; J96.02 Acute respiratory failure with hypercapnia; J18.9 Pneumonia, unspecified organism; N18.6 End stage renal disease; R18.8 Other ascites; J98.11 Atelectasis; I13.2 Hypertensive heart and chronic kidney disease with heart failure and with stage 5 chronic kidney disease, or end stage renal disease; I50.9 Heart failure, unspecified; T82.590A Other mechanical complication of surgically created arteriovenous fistula, initial encounter; J44.0 Chronic obstructive pulmonary disease with (acute) lower respiratory infection; E11.43 Type 2 diabetes mellitus with diabetic autonomic (poly)neuropathy; E11.65 Type 2 diabetes mellitus with hyperglycemia; Z79.4 Long term (current) use of insulin; Z99.2 Dependence on renal dialysis; E78.00 Pure hypercholesterolemia, unspecified; K31.84 Gastroparesis; D63.8 Anemia in other chronic diseases classified elsewhere; Z68.23 Body mass index [BMI] 23.0-23.9, adult; K81.9 Cholecystitis, unspecified

== ENCOUNTER 2018-03-14 17:31 | Inpatient (IN) | payer OTHER ==
[2018-03-14 18:21] LABS: BASO # 0.1 K/uL (0.0-0.2); BASO % 0.9 % (0.0-2.0); EOS # 0.2 K/uL (0.0-0.7); EOS % 2.5 % (0.0-4.0); HEMOGLOBIN 10.5 g/dL (11.0-16.0); LYMPH # 1.1 K/uL (1.0-4.3); LYMPH % 13.6 % (20.0-40.0); MEAN CORPUSCULAR HGB CONC 32.8 g/dL (33.0-37.0); MONO # 0.7 K/uL (0.0-0.8); MONO % 9.3 % (0.0-10.0); NEUT # 5.8 K/uL (1.8-7.0); NEUT % 73.7 % (50.0-75.0); RBC 3.51 Mil/uL (3.80-5.20); WHITE BLOOD COUNT 7.8 K/uL (4.8-10.8)
[2018-03-14 18:24] LABS: MEAN CELL VOLUME 91.4 fL (81.0-99.0)
[2018-03-14] MEDS ORDERED: Morphine 4 MG/ML VIAL IV ONE (18:36)
[2018-03-14 18:47] LABS: ALBUMIN 4.1 g/dL (3.5-5.0); CALCIUM 9.7 mg/dl (8.6-10.4)
[2018-03-14 18:49] LABS: ALB/GLOB RATIO 0.6 (1.0-2.1)
[2018-03-14] MEDS ORDERED: Morphine 4 MG/ML VIAL ONE (18:57)
--- NOTE | 2018-03-14 19:12 | C.PDOC ---
History Of Present Illness 42 y/o female with Hx of intractable vomiting and abdominal pain presents to ED for complaints of intractable vomiting associated with abdominal pain. PMHx also includes ESRD (on dialysis MWF). Patient states she was due for dialysis today but did not go because "they didn't pick her up." Denies any other physical complaints. Time Seen by Provider: 03/14/18 18:23 Chief Complaint (Nursing): Abdominal Pain History Per: Patient History/Exam Limitations: no limitations Onset/Duration Of Symptoms: Hrs Current Symptoms Are (Timing): Still Present Location Of Pain/Discomfort: Diffuse Radiation Of Pain To:: None Associated Symptoms: Vomiting. denies: Fever, Chills, Diarrhea Exacerbating Factors: None Alleviating Factors: None Recent travel outside of the [place]: No Abnormal Vaginal Bleeding: No Past Medical History Reviewed: Historical Data, Nursing Documentation, Vital Signs Vital Signs: Last Vital Signs Temp 98 F 03/14/18 21:52 Pulse 78 03/14/18 21:52 Resp 18 03/14/18 21:52 BP 176/86 H 03/14/18 21:52 Pulse Ox 98 03/14/18 21:52 - Medical History PMH: Anemia, Asthma, COPD, Diabetes (IDDM), Gastritis, HTN, Hypercholesterolemia , End Stage Renal Disease, Chronic Kidney Disease Surgical History: - [facility] Procedures (01/18/18) DILATION OF UPPER VEIN, PERCUTANEOUS APPROACH (01/18/18) DRAINAGE OF PERITONEAL CAVITY, PERCUTANEOUS APPROACH (01/18/18) DRAINAGE OF RIGHT PLEURAL CAVITY, PERCUTANEOUS APPROACH (12/18/17) ESOPHAGOGASTRODUODENOSCOPY [EGD] W/CLOSED BIOPSY (06/18/15) EXCISION OF STOMACH, ENDO, DIAGN (09/02/16) INSERT INFUSION DEV IN R INT JUGULAR VEIN, PERC (01/18/18) INSERTION OF ENDOTRACHEAL AIRWAY INTO TRACHEA, VIA OPENING (01/18/18) OTHER SKIN & SUBQ I D (08/07/15) PERFORMANCE OF URINARY FILTRATION, MULTIPLE (09/02/16) PLAIN RADIOGRAPHY OF DIALYSIS SHUNT USING OTH CONTRAST (01/18/18) RESPIRATORY VENTILATION, 24-96 CONSECUTIVE HOURS (01/18/18) ULTRASONOGRAPHY OF LEFT UPPER EXTREMITY VEINS (09/02/16) ULTRASONOGRAPHY OF RIGHT JUGULAR VEINS, GUIDANCE (01/18/18) Family History: States: Unknown Family Hx - Social History Hx Tobacco Use: No Hx Alcohol Use: No Hx Substance Use: No - Immunization History Hx Tetanus Toxoid Vaccination: No Hx Influenza Vaccination: No Hx Pneumococcal Vaccination: No Review Of Systems Constitutional: Negative for: Fever, Chills Cardiovascular: Negative for: Chest Pain Respiratory: Negative for: Cough, Shortness of Breath Gastrointestinal: Positive for: Vomiting, Abdominal Pain. Negative for: Diarrhea Skin: Negative for: Rash Neurological: Negative for: Weakness, Numbness Physical Exam - Physical Exam Appears: Well, Non-toxic, No Acute Distress, Other (Appears older than age ) Skin: Normal Color, Warm, Dry Head: Atraumatic, Normacephalic Eye(s): bilateral: Normal Inspection, PERRL, EOMI Oral Mucosa: Moist Throat: No Erythema, No Exudate, Other (Dry oropharynx) Neck: Supple Chest: Symmetrical, No Tenderness Cardiovascular: Rhythm Regular Respiratory: Normal Breath Sounds, No Decreased Breath Sounds, No Rales, No Rhonchi, No Wheezing Gastrointestinal/Abdominal: Soft, No Tenderness, No Distention Extremity: Normal ROM Extremity: Bilateral: Normal ROM Neurological/Psych: Oriented x3, Normal Speech, Normal Cognition, Other (no focal deficits ) Gait: Steady ED Course And Treatment - Laboratory Results Result Diagrams: 03/14/18 18:18 03/14/18 18:18 Lab Interpretation: Abnormal (c/w HD, normal K+) ECG: Interpreted By Hi ECG Rhythm: Sinus Rhythm ECG Interpretation: Normal O2 Sat by Pulse Oximetry: 95 (RA) Pulse Ox Interpretation: Normal - Radiology CXR: Interpreted by Hi CXR Interpretation: Yes: Heart Size, Other (+ moderate R pleural effusion) Progress Note: morphine, zofran, protonix Reevaluation Time: 19:13 Reassessment Condition: Improved - Physician Consult Information Outcome Of Conversation: 1840, 1900: dw Dr. Walker, covers pts for ran Cano to admit. asks for IR Consult to drain R pleural effusion tommorrow Medical Decision Making Medical Decision Making: Administered Morphine, Zofran and Protonix. Ordered EKG, blood work, and CXR. Re-evaluation: - Patient dramatically showing belly pain Disposition Doctor Will See Patient In The: Hospital Counseled Patient/Family Regarding: Studies Performed, Diagnosis - Disposition Disposition: HOSPITALIZED Disposition Time: 19:14 Condition: GOOD - Clinical Impression Clinical Impression: Nausea & vomiting, Pleural effusion on right - Scribe Statement The provider has reviewed the documentation as recorded by the Scribe Rosalia Montes All medical record entries made by the Fransiscaibaashish were at my direction and personally dictated by me. I have reviewed the chart and agree that the record accurately reflects my personal performance of the history, physical exam, medical decision making, and the department course for this patient. I have also personally directed, reviewed, and agree with the discharge instructions and disposition.
[2018-03-14 19:33] LABS: INR 1.2
[2018-03-15] MEDS: Albuterol-Ipratrop 3 mg / 0.5 (3 ml) UD INH SCH ×4 (01:38→19:31)
[2018-03-15] MEDS: (Novolog) Insulin Aspart, Recombinant 100 u/ml 10 ml vial SC SCH ×4 (08:30→21:28)
[2018-03-15] MEDS ORDERED: CLONIDINE HCL 0.1 MG PO SCH (10:00)
[2018-03-15] MEDS: Metoprolol Succinate 50 mg XL Tab PO SCH (10:13)
--- NOTE | 2018-03-15 11:34 | CP.PCM.CON ---
History of Present Illness - History of Present Illness History of Present Illness: 42 yo AA female, DM, HTN, ESRD, presents with one day of severe nausea and vomiting. Pt has history of admits for gastroparesis. Last HD on Saturday, transportation did not pick her up yesterday. Responding to antiemetics. Denies dyspnea. Has not moved bowels yet. On HD for one year, uses an AVF. Review of Systems - Constitutional Constitutional: absent: Fever, Frequent Falls - EENT Eyes: Other Visual Disturbances. absent: Irritation Nose/Mouth/Throat: absent: Epistaxis, Nasal Congestion - Cardiovascular Cardiovascular: absent: Chest Pain, Rapid Heart Rate - Respiratory Respiratory: absent: Cough, Dyspnea - Gastrointestinal Gastrointestinal: Nausea, Vomiting - Musculoskeletal Musculoskeletal: absent: Back Pain, Muscle Cramps - Neurological Neurological: Abnormal Gait, Numbness Past Patient History - Infectious Disease Hx of Infectious Diseases: None - Past Medical History & Family History Past Medical History?: Yes - Past Social History Smoking Status: Never Smoked - CARDIAC Hx Hypercholesterolemia: Yes Hx Hypertension: Yes - PULMONARY Hx Asthma: Yes Hx Chronic Obstructive Pulmonary Disease (COPD): Yes - NEUROLOGICAL HX Cerebrovascular Accident: Yes (01/2016, left sided weakness) - HEENT Hx HEENT Problems: Yes Other/Comment: Wears Eyeglasses - RENAL Hx Chronic Kidney Disease: Yes Date of Last Dialysis Treatment: 03/12/18 - ENDOCRINE/METABOLIC Hx Hyperthyroidism: No - HEMATOLOGICAL/ONCOLOGICAL Hx Anemia: Yes - INTEGUMENTARY Hx Dermatological Problems: No - MUSCULOSKELETAL/RHEUMATOLOGICAL Hx Musculoskeletal Disorders: Yes Hx Back Pain: Yes Hx Falls: Yes (3 months ago) Hx Spinal Stenosis: Yes Other/Comment: uses walker at home - GASTROINTESTINAL Hx Gastritis: Yes - GENITOURINARY/GYNECOLOGICAL Hx Genitourinary Disorders: No - PSYCHIATRIC Hx Substance Use: No - SURGICAL HISTORY Hx Surgeries: Yes Hx Section: Yes Other/Comment: Insertion Of HD Cath on the R Internal Jugular; left forearm graft for dialysis. - ANESTHESIA Hx Anesthesia: Yes Hx Anesthesia Reactions: No Hx Malignant Hyperthermia: No Meds Allergies/Adverse Reactions: Allergies Allergy/AdvReac Type Severity Reaction Status Date / Time No Known Allergies Allergy Verified 01/18/18 08:51 - Medications Medications: Current Medications Albuterol/Ipratropium (Duoneb 3 Mg/0.5 Mg (3 Ml) Ud) 3 ml INH RQ6 [facility] Last Admin: 03/15/18 07:43 Dose: 3 ml Amlodipine Besylate (Norvasc) 5 mg PO DAILY [facility] Last Admin: 03/15/18 10:14 Dose: 5 mg Clonidine HCl (Catapres) 0.1 mg PO BID [facility] Last Admin: 03/15/18 10:13 Dose: 0.1 mg Clopidogrel Bisulfate (Plavix) 75 mg PO DAILY [facility] Last Admin: 03/15/18 10:13 Dose: 75 mg Diphenhydramine HCl (Benadryl) 25 mg PO DAILY PRN PRN Reason: Insomnia Last Admin: 03/14/18 23:54 Dose: 25 mg Famotidine (Pepcid) 20 mg PO DAILY [facility] Last Admin: 03/15/18 10:24 Dose: 20 mg Ferrous Sulfate (Feosol) 325 mg PO DAILY [facility] Last Admin: 03/15/18 10:13 Dose: 325 mg Gabapentin (Neurontin) 100 mg PO TID [facility] Last Admin: 03/15/18 10:14 Dose: 100 mg Heparin Sodium (Porcine) (Heparin) 5,000 units SC Q8 [facility] Last Admin: 03/15/18 05:28 Dose: 5,000 units Insulin Aspart (Novolog) 0 unit SC ACHS [facility] PRN Reason: Protocol Last Admin: 03/15/18 08:30 Dose: 2 unit Losartan Potassium (Cozaar) 100 mg PO DAILY [facility] Last Admin: 03/15/18 10:13 Dose: 100 mg Metoclopramide HCl (Reglan) 10 mg IVP Q8H [facility] Metoprolol Succinate (Toprol Xl) 50 mg PO DAILY [facility] Last Admin: 03/15/18 10:13 Dose: 50 mg Ondansetron HCl (Zofran Inj) 4 mg IVP Q6H PRN PRN Reason: Nausea/Vomiting Last Admin: 03/14/18 23:54 Dose: 4 mg Oxybutynin Chloride (Ditropan Xl) 5 mg PO DAILY [facility] Rosuvastatin Calcium (Crestor) 5 mg PO HS [facility] Tramadol HCl (Ultram) 50 mg PO Q12 PRN PRN Reason: Pain, moderate (4-7) Last Admin: 03/15/18 04:21 Dose: 50 mg Physical Exam - Constitutional Appears: Chronically Ill - Head Exam Head Exam: ATRAUMATIC, NORMAL INSPECTION - Eye Exam Eye Exam: EOMI - ENT Exam ENT Exam: Mucous Membranes Moist - Neck Exam Neck exam: Positive for: Full Rom. Negative for: Lymphadenopathy - Respiratory Exam Respiratory Exam: Decreased Breath Sounds. absent: Accessory Muscle Use - Cardiovascular Exam Cardiovascular Exam: REGULAR RHYTHM. absent: Rubs - Extremities Exam Extremities exam: Negative for: pedal edema - Neurological Exam Neurological exam: Alert, Oriented x3 - Psychiatric Exam Psychiatric exam: Normal Affect Results - Vital Signs Recent Vital Signs: Last Vital Signs Temp 98.4 F 03/15/18 08:00 Pulse 99 H 03/15/18 08:00 Resp 20 03/15/18 08:00 BP 180/96 H 03/15/18 08:00 Pulse Ox 95 03/15/18 08:00 - Labs Result Diagrams: 03/14/18 18:18 03/14/18 18:18 Labs: Laboratory Results - last 24 hr 03/14/18 03/14/18 03/14/18 18:18 18:18 19:14 WBC 7.8 RBC 3.51 L Hgb 10.5 L Hct 32.0 L MCV 91.4 D MCH 30.0 MCHC 32.8 L RDW 19.0 H Plt Count 226 MPV 9.0 Neut % (Auto) 73.7 Lymph % (Auto) 13.6 L [place] % (Auto) 9.3 Eos % (Auto) 2.5 Baso % (Auto) 0.9 Neut # (Auto) 5.8 Lymph # (Auto) 1.1 [place] # (Auto) 0.7 Eos # (Auto) 0.2 Baso # (Auto) 0.1 PT INR APTT Sodium 146 Potassium 5.1 Chloride 96 L Carbon Dioxide 28 Anion Gap 27 H BUN 52 H Creatinine 8.2 H* D Est GFR ( Amer) 6 Est GFR (Non-Af Amer) 5 POC Glucose (mg/dL) Random Glucose 297 H Calcium 9.7 Total Bilirubin 2.7 H AST 47 H D ALT 20 Alkaline Phosphatase 1004 H Troponin I 0.0290 Total Protein 10.6 H Albumin 4.1 Globulin 6.5 H Albumin/Globulin Ratio 0.6 L Lipase 101 03/14/18 03/15/18 19:20 07:35 WBC RBC Hgb Hct MCV MCH MCHC RDW Plt Count MPV Neut % (Auto) Lymph % (Auto) [place] % (Auto) Eos % (Auto) Baso % (Auto) Neut # (Auto) Lymph # (Auto) [place] # (Auto) Eos # (Auto) Baso # (Auto) PT 14.0 H INR 1.2 APTT 37 H Sodium Potassium Chloride Carbon Dioxide Anion Gap BUN Creatinine Est GFR ( Amer) Est GFR (Non-Af Amer) POC Glucose (mg/dL) 202 H Random Glucose Calcium Total Bilirubin AST ALT Alkaline Phosphatase Troponin I Total Protein Albumin Globulin Albumin/Globulin Ratio Lipase Assessment & Plan - Assessment and Plan (Free Text) Assessment: esrd,probable diabetic gastroparesis missed HD DM HTN for HD today US of abdomen, given increased bilirubin continue antiemetics monitor po intake
--- NOTE | 2018-03-15 13:04 | RAD ---
PROCEDURE: CHEST RADIOGRAPH, 1 VIEW HISTORY: SOB COMPARISON: Comparison made with prior study 02/07/2018. FINDINGS: LUNGS: Re- demonstrated is right lower lobe opacification likely representing a combination of large right-sided effusion and a right lower lobe atelectasis and or infiltrate PLEURA: No pneumothorax or pleural fluid seen. CARDIOVASCULAR: Normal. OSSEOUS STRUCTURES: No significant abnormalities. VISUALIZED UPPER ABDOMEN: Normal. OTHER FINDINGS: None. IMPRESSION: Re- demonstrated is right lower lobe opacification likely representing a combination of large right-sided effusion and a right lower lobe atelectasis and or infiltrate the
--- NOTE | 2018-03-15 14:38 | US ---
HISTORY: Abdominal pain COMPARISON: Correlation made with CT scan abdomen and pelvis dated 01/18/2018. TECHNIQUE: Sonographic evaluation of the abdomen. FINDINGS: LIVER: Liver is enlarged measuring over 20 cm in CC dimension liver demonstrates smooth contour though increased echotexture which could be secondary to fatty infiltration however other infiltrative hepatic cellular disease process not excluded. . No obvious hepatic mass seen on images presented. No intrahepatic bile duct dilatation. Ascites present. GALLBLADDER: Cholelithiasis with thick-walled appearance. Rule out acute cholecystitis. There is also pericholecystic fluid though this could be in part related to ascites. COMMON BILE DUCT: Measures 4.8 mm. No stones. No dilatation. PANCREAS: Pancreas incompletely visualized due to body habitus bowel gas and ascites. RIGHT KIDNEY: Measures 9.8 x 3.1 x 4.9cm. Increased echogenicity. . No discrete mid renal mass, or hydronephrosis. Previously noted presumed vascular calcifications right kidney less well seen on this study. Note that the possibility of nonobstructing tiny calculi not excluded. . LEFT KIDNEY: Measures 10.6 x 4.0 x 3.7cm. Increased echogenicity. . No discrete renal mass or hydronephrosis. . Previously noted presumed vascular calcifications left kidney less well seen on this study. Note the possibility of nonobstructing tiny calculi not completely excluded SPLEEN: Spleen is upper limits of normal -borderline enlarged measuring approximately 12.5 cm. Questionable small splenule. AORTA: No aneurysmal dilatation. IVC: Unremarkable. OTHER FINDINGS: Right-sided pleural effusion IMPRESSION: Cholelithiasis with wall thickening of the gallbladder and pericholecystic fluid the possibility to ascites. Rule out acute cholecystitis. Hepatomegaly with fatty increased echotexture possibly related to fatty infiltration however other infiltrative hepatic cellular disease process not excluded. Questionable of small splenule.
--- NOTE | 2018-03-15 18:13 | CP.PCM.PN ---
Subjective - Date & Time of Evaluation Date of Evaluation: 03/15/18 Time of Evaluation: 18:13 Objective - Vital Signs/Intake and Output Vital Signs (last 24 hours): Temp Pulse Resp BP Pulse Ox 98 F 78 17 110/67 97 03/15/18 16:20 03/15/18 16:20 03/15/18 16:20 03/15/18 16:20 03/15/18 15:00 Intake and Output: 03/15/18 03/15/18 06:59 18:59 Intake Total 150 250 Balance 150 250 - Medications Medications: Current Medications Albuterol/Ipratropium (Duoneb 3 Mg/0.5 Mg (3 Ml) Ud) 3 ml INH RQ6 [facility] Last Admin: 03/15/18 13:16 Dose: Not Given Amlodipine Besylate (Norvasc) 5 mg PO DAILY [facility] Last Admin: 03/15/18 10:14 Dose: 5 mg Clonidine HCl (Catapres) 0.1 mg PO BID [facility] Last Admin: 03/15/18 10:13 Dose: 0.1 mg Clopidogrel Bisulfate (Plavix) 75 mg PO DAILY [facility] Last Admin: 03/15/18 10:13 Dose: 75 mg Diphenhydramine HCl (Benadryl) 25 mg PO DAILY PRN PRN Reason: Insomnia Last Admin: 03/14/18 23:54 Dose: 25 mg Famotidine (Pepcid) 20 mg PO DAILY [facility] Last Admin: 03/15/18 10:24 Dose: 20 mg Ferrous Sulfate (Feosol) 325 mg PO DAILY [facility] Last Admin: 03/15/18 10:13 Dose: 325 mg Gabapentin (Neurontin) 100 mg PO TID [facility] Last Admin: 03/15/18 14:06 Dose: 100 mg Heparin Sodium (Porcine) (Heparin) 5,000 units SC Q8 [facility] Last Admin: 03/15/18 14:07 Dose: 5,000 units Insulin Aspart (Novolog) 0 unit SC ACHS [facility] PRN Reason: Protocol Last Admin: 03/15/18 11:50 Dose: Not Given Losartan Potassium (Cozaar) 100 mg PO DAILY [facility] Last Admin: 03/15/18 10:13 Dose: 100 mg Metoclopramide HCl (Reglan) 10 mg IVP Q8 [facility] Stop: 03/17/18 06:01 Last Admin: 03/15/18 15:00 Dose: 10 mg Metoclopramide HCl (Reglan) 10 mg PO Q8 [facility] Metoprolol Succinate (Toprol Xl) 50 mg PO DAILY [facility] Last Admin: 03/15/18 10:13 Dose: 50 mg Ondansetron HCl (Zofran Inj) 4 mg IVP Q6H PRN PRN Reason: Nausea/Vomiting Last Admin: 03/14/18 23:54 Dose: 4 mg Oxybutynin Chloride (Ditropan Xl) 5 mg PO DAILY [facility] Last Admin: 03/15/18 11:00 Dose: 5 mg Rosuvastatin Calcium (Crestor) 5 mg PO HS [facility] Tramadol HCl (Ultram) 50 mg PO Q12 PRN PRN Reason: Pain, moderate (4-7) Last Admin: 03/15/18 04:21 Dose: 50 mg - Labs Labs: 03/14/18 18:18 03/14/18 18:18 PT 14.0 SECONDS (9.7-12.2) H 03/14/18 19:20 INR 1.2 03/14/18 19:20 APTT 37 SECONDS (21-34) H 03/14/18 19:20
--- NOTE | 2018-03-15 18:14 | CP.PCM.HP ---
Past Patient History - Infectious Disease Hx of Infectious Diseases: None - Past Medical History & Family History Past Medical History?: Yes - Past Social History Smoking Status: Never Smoked - CARDIAC Hx Hypercholesterolemia: Yes Hx Hypertension: Yes - PULMONARY Hx Asthma: Yes Hx Chronic Obstructive Pulmonary Disease (COPD): Yes - NEUROLOGICAL HX Cerebrovascular Accident: Yes (01/2016, left sided weakness) - HEENT Hx HEENT Problems: Yes Other/Comment: Wears Eyeglasses - RENAL Hx Chronic Kidney Disease: Yes Date of Last Dialysis Treatment: 03/12/18 - ENDOCRINE/METABOLIC Hx Hyperthyroidism: No - HEMATOLOGICAL/ONCOLOGICAL Hx Anemia: Yes - INTEGUMENTARY Hx Dermatological Problems: No - MUSCULOSKELETAL/RHEUMATOLOGICAL Hx Musculoskeletal Disorders: Yes Hx Back Pain: Yes Hx Falls: Yes (3 months ago) Hx Spinal Stenosis: Yes Other/Comment: uses walker at home - GASTROINTESTINAL Hx Gastritis: Yes - GENITOURINARY/GYNECOLOGICAL Hx Genitourinary Disorders: No - PSYCHIATRIC Hx Substance Use: No - SURGICAL HISTORY Hx Surgeries: Yes Hx Section: Yes Other/Comment: Insertion Of HD Cath on the R Internal Jugular; left forearm graft for dialysis. - ANESTHESIA Hx Anesthesia: Yes Hx Anesthesia Reactions: No Hx Malignant Hyperthermia: No Meds Allergies/Adverse Reactions: Allergies Allergy/AdvReac Type Severity Reaction Status Date / Time No Known Allergies Allergy Verified 01/18/18 08:51 Results - Vital Signs Recent Vital Signs: Last Vital Signs Temp 98 F 03/15/18 16:20 Pulse 78 03/15/18 16:20 Resp 17 03/15/18 16:20 BP 110/67 03/15/18 16:20 Pulse Ox 97 03/15/18 15:00 - Labs Result Diagrams: 03/14/18 18:18 03/14/18 18:18 Labs: Laboratory Results - last 24 hr 03/14/18 03/14/18 03/14/18 18:18 18:18 19:14 WBC 7.8 RBC 3.51 L Hgb 10.5 L Hct 32.0 L MCV 91.4 D MCH 30.0 MCHC 32.8 L RDW 19.0 H Plt Count 226 MPV 9.0 Neut % (Auto) 73.7 Lymph % (Auto) 13.6 L [place] % (Auto) 9.3 Eos % (Auto) 2.5 Baso % (Auto) 0.9 Neut # (Auto) 5.8 Lymph # (Auto) 1.1 [place] # (Auto) 0.7 Eos # (Auto) 0.2 Baso # (Auto) 0.1 PT INR APTT Sodium 146 Potassium 5.1 Chloride 96 L Carbon Dioxide 28 Anion Gap 27 H BUN 52 H Creatinine 8.2 H* D Est GFR ( Amer) 6 Est GFR (Non-Af Amer) 5 POC Glucose (mg/dL) Random Glucose 297 H Calcium 9.7 Total Bilirubin 2.7 H AST 47 H D ALT 20 Alkaline Phosphatase 1004 H Troponin I 0.0290 Total Protein 10.6 H Albumin 4.1 Globulin 6.5 H Albumin/Globulin Ratio 0.6 L Lipase 101 Beta HCG, Quant 03/14/18 03/15/18 03/15/18 19:20 07:35 11:29 WBC RBC Hgb Hct MCV MCH MCHC RDW Plt Count MPV Neut % (Auto) Lymph % (Auto) [place] % (Auto) Eos % (Auto) Baso % (Auto) Neut # (Auto) Lymph # (Auto) [place] # (Auto) Eos # (Auto) Baso # (Auto) PT 14.0 H INR 1.2 APTT 37 H Sodium Potassium Chloride Carbon Dioxide Anion Gap BUN Creatinine Est GFR ( Amer) Est GFR (Non-Af Amer) POC Glucose (mg/dL) 202 H 264 H Random Glucose Calcium Total Bilirubin AST ALT Alkaline Phosphatase Troponin I Total Protein Albumin Globulin Albumin/Globulin Ratio Lipase Beta HCG, Quant 03/15/18 03/15/18 03/15/18 16:42 16:52 17:22 WBC RBC Hgb Hct MCV MCH MCHC RDW Plt Count MPV Neut % (Auto) Lymph % (Auto) [place] % (Auto) Eos % (Auto) Baso % (Auto) Neut # (Auto) Lymph # (Auto) [place] # (Auto) Eos # (Auto) Baso # (Auto) PT INR APTT Sodium Potassium Chloride Carbon Dioxide Anion Gap BUN Creatinine Est GFR ( Amer) Est GFR (Non-Af Amer) POC Glucose (mg/dL) 196 H 190 H Random Glucose Calcium Total Bilirubin AST ALT Alkaline Phosphatase Troponin I Total Protein Albumin Globulin Albumin/Globulin Ratio Lipase Beta HCG, Quant < 2.39
[2018-03-16] MEDS: Albuterol-Ipratrop 3 mg / 0.5 (3 ml) UD INH SCH ×4 (01:02→19:22)
[2018-03-16] MEDS: (Novolog) Insulin Aspart, Recombinant 100 u/ml 10 ml vial SC SCH ×4 (08:30→21:27)
[2018-03-16] MEDS: Metoprolol Succinate 50 mg XL Tab PO SCH (09:52)
[2018-03-17] MEDS: Albuterol-Ipratrop 3 mg / 0.5 (3 ml) UD INH SCH ×4 (01:36→22:10)
[2018-03-17] MEDS: (Novolog) Insulin Aspart, Recombinant 100 u/ml 10 ml vial SC SCH ×5 (08:21→21:29)
[2018-03-17] MEDS: Metoprolol Succinate 50 mg XL Tab PO SCH ×2 (09:31→14:31)
--- NOTE | 2018-03-17 10:18 | CP.PCM.PN ---
Subjective - Date & Time of Evaluation Date of Evaluation: 03/17/18 Time of Evaluation: 10:15 - Subjective Subjective: Seen at dialysis- tolerating UF 3000ml HTN controlled No more n,v no f,chills, CPs, diarrhea Objective - Vital Signs/Intake and Output Vital Signs (last 24 hours): Temp Pulse Resp BP Pulse Ox 97.5 F L 97 H 16 145/90 97 03/17/18 09:20 03/17/18 09:20 03/17/18 09:20 03/17/18 09:35 03/17/18 09:20 Intake and Output: 03/17/18 03/17/18 06:59 18:59 Intake Total 200 Balance 200 - Medications Medications: Current Medications Albuterol/Ipratropium (Duoneb 3 Mg/0.5 Mg (3 Ml) Ud) 3 ml INH RQ6 [facility] Last Admin: 03/17/18 01:36 Dose: Not Given Amlodipine Besylate (Norvasc) 5 mg PO DAILY [facility] Last Admin: 03/17/18 09:30 Dose: Not Given Clonidine HCl (Catapres) 0.1 mg PO BID [facility] Last Admin: 03/17/18 09:29 Dose: Not Given Clopidogrel Bisulfate (Plavix) 75 mg PO DAILY [facility] Last Admin: 03/17/18 09:30 Dose: Not Given Diphenhydramine HCl (Benadryl) 25 mg PO DAILY PRN PRN Reason: Insomnia Last Admin: 03/16/18 21:56 Dose: 25 mg Famotidine (Pepcid) 20 mg PO DAILY [facility] Last Admin: 03/17/18 09:30 Dose: Not Given Ferrous Sulfate (Feosol) 325 mg PO DAILY [facility] Last Admin: 03/17/18 09:30 Dose: Not Given Gabapentin (Neurontin) 100 mg PO TID [facility] Last Admin: 03/17/18 09:30 Dose: Not Given Heparin Sodium (Porcine) (Heparin) 5,000 units SC Q8 [facility] Last Admin: 03/17/18 05:10 Dose: 5,000 units Insulin Aspart (Novolog) 0 unit SC ACHS [facility] PRN Reason: Protocol Last Admin: 03/17/18 08:21 Dose: 4 unit Losartan Potassium (Cozaar) 100 mg PO DAILY [facility] Last Admin: 03/17/18 09:30 Dose: Not Given Metoclopramide HCl (Reglan) 10 mg PO Q8 [facility] Metoprolol Succinate (Toprol Xl) 50 mg PO DAILY [facility] Last Admin: 03/17/18 09:31 Dose: Not Given Ondansetron HCl (Zofran Inj) 4 mg IVP Q6H PRN PRN Reason: Nausea/Vomiting Last Admin: 03/14/18 23:54 Dose: 4 mg Oxybutynin Chloride (Ditropan Xl) 5 mg PO DAILY [facility] Last Admin: 03/17/18 09:30 Dose: Not Given Rosuvastatin Calcium (Crestor) 5 mg PO HS [facility] Last Admin: 03/16/18 21:27 Dose: 5 mg Tramadol HCl (Ultram) 50 mg PO Q12 PRN PRN Reason: Pain, moderate (4-7) Last Admin: 03/16/18 04:59 Dose: 50 mg - Labs Labs: 03/14/18 18:18 03/14/18 18:18 PT 14.0 SECONDS (9.7-12.2) H 03/14/18 19:20 INR 1.2 03/14/18 19:20 APTT 37 SECONDS (21-34) H 03/14/18 19:20 - Constitutional Appears: No Acute Distress, Chronically Ill - Head Exam Head Exam: ATRAUMATIC, NORMAL INSPECTION - Eye Exam Eye Exam: EOMI, Normal appearance - Neck Exam Neck Exam: Normal Inspection. absent: Tenderness - Respiratory Exam Respiratory Exam: Clear to Ausculation Bilateral, NORMAL BREATHING PATTERN - Cardiovascular Exam Cardiovascular Exam: REGULAR RHYTHM, +S1 - GI/Abdominal Exam GI & Abdominal Exam: Soft. absent: Tenderness - Extremities Exam Extremities Exam: Normal Inspection. absent: Tenderness - Neurological Exam Neurological Exam: Alert, CN II-XII Intact - Skin Skin Exam: Dry, Warm Assessment and Plan (1) Diabetic gastroparesis Status: Acute (2) Nausea & vomiting Status: Acute (3) Diabetes mellitus with ESRD (end-stage renal disease) Status: Acute - Assessment and Plan (Free Text) Plan: Same meds as pt better Recheck LFTs Monitor BP post dialysis Check phos, PTH
--- NOTE | 2018-03-17 13:20 | CP.PCM.PN ---
Subjective - Date & Time of Evaluation Date of Evaluation: 03/17/18 Time of Evaluation: 13:20 Objective - Vital Signs/Intake and Output Vital Signs (last 24 hours): Temp Pulse Resp BP Pulse Ox 97.5 F L 97 H 16 167/92 H 97 03/17/18 09:20 03/17/18 09:20 03/17/18 09:20 03/17/18 11:45 03/17/18 09:20 Intake and Output: 03/17/18 03/17/18 06:59 18:59 Intake Total 200 Balance 200 - Medications Medications: Current Medications Albuterol/Ipratropium (Duoneb 3 Mg/0.5 Mg (3 Ml) Ud) 3 ml INH RQ6 [facility] Last Admin: 03/17/18 13:05 Dose: Not Given Amlodipine Besylate (Norvasc) 5 mg PO DAILY [facility] Last Admin: 03/17/18 09:30 Dose: Not Given Clonidine HCl (Catapres) 0.1 mg PO BID [facility] Last Admin: 03/17/18 09:29 Dose: Not Given Clopidogrel Bisulfate (Plavix) 75 mg PO DAILY [facility] Last Admin: 03/17/18 09:30 Dose: Not Given Diphenhydramine HCl (Benadryl) 25 mg PO DAILY PRN PRN Reason: Insomnia Last Admin: 03/16/18 21:56 Dose: 25 mg Famotidine (Pepcid) 20 mg PO DAILY [facility] Last Admin: 03/17/18 09:30 Dose: Not Given Ferrous Sulfate (Feosol) 325 mg PO DAILY [facility] Last Admin: 03/17/18 09:30 Dose: Not Given Gabapentin (Neurontin) 100 mg PO TID [facility] Last Admin: 03/17/18 09:30 Dose: Not Given Heparin Sodium (Porcine) (Heparin) 5,000 units SC Q8 [facility] Last Admin: 03/17/18 05:10 Dose: 5,000 units Insulin Aspart (Novolog) 0 unit SC ACHS [facility] PRN Reason: Protocol Last Admin: 03/17/18 12:28 Dose: Not Given Losartan Potassium (Cozaar) 100 mg PO DAILY [facility] Last Admin: 03/17/18 09:30 Dose: Not Given Metoclopramide HCl (Reglan) 10 mg PO Q8 [facility] Metoprolol Succinate (Toprol Xl) 50 mg PO DAILY [facility] Last Admin: 03/17/18 09:31 Dose: Not Given Ondansetron HCl (Zofran Inj) 4 mg IVP Q6H PRN PRN Reason: Nausea/Vomiting Last Admin: 03/14/18 23:54 Dose: 4 mg Oxybutynin Chloride (Ditropan Xl) 5 mg PO DAILY [facility] Last Admin: 03/17/18 09:30 Dose: Not Given Rosuvastatin Calcium (Crestor) 5 mg PO HS [facility] Last Admin: 03/16/18 21:27 Dose: 5 mg Tramadol HCl (Ultram) 50 mg PO Q12 PRN PRN Reason: Pain, moderate (4-7) Last Admin: 03/16/18 04:59 Dose: 50 mg - Labs Labs: 03/14/18 18:18 03/14/18 18:18 PT 14.0 SECONDS (9.7-12.2) H 03/14/18 19:20 INR 1.2 03/14/18 19:20 APTT 37 SECONDS (21-34) H 03/14/18 19:20
[2018-03-17 14:25] LABS: HEMOGLOBIN 10.1 g/dL (11.0-16.0); MEAN CORPUSCULAR HEMOGLOBIN 30.7 pg (27.0-31.0); MEAN CORPUSCULAR HGB CONC 33.7 g/dL (33.0-37.0); MEAN PLATELET VOLUME 9.3 fL (7.2-11.7); RBC 3.28 Mil/uL (3.80-5.20); RED CELL DISTRIBUTION WIDTH 17.7 % (11.5-14.5); WHITE BLOOD COUNT 8.9 K/uL (4.8-10.8)
[2018-03-17 14:43] LABS: ALB/GLOB RATIO 0.6 (1.0-2.1); ALBUMIN 3.8 g/dL (3.5-5.0)
[2018-03-18] MEDS: Albuterol-Ipratrop 3 mg / 0.5 (3 ml) UD INH SCH ×2 (01:44→07:05)
[2018-03-18] MEDS: (Novolog) Insulin Aspart, Recombinant 100 u/ml 10 ml vial SC SCH ×4 (08:35→21:20)
[2018-03-18] MEDS: Metoprolol Succinate 50 mg XL Tab PO SCH (10:29)
--- NOTE | 2018-03-18 10:59 | CP.PCM.PN ---
Subjective - Date & Time of Evaluation Date of Evaluation: 03/18/18 Time of Evaluation: 10:58 - Subjective Subjective: seen and examined c/o b/l leg pain, not relieved w/ tramadol no n/v/d. improved abdominal pain. hd yesterday unremarkable Objective - Vital Signs/Intake and Output Vital Signs (last 24 hours): Temp Pulse Resp BP Pulse Ox 98.6 F 96 H 20 150/89 96 03/18/18 07:47 03/18/18 07:47 03/18/18 07:47 03/18/18 07:47 03/18/18 07:47 Intake and Output: 03/18/18 03/18/18 06:59 18:59 Intake Total 120 Balance 120 - Medications Medications: Current Medications Albuterol/Ipratropium (Duoneb 3 Mg/0.5 Mg (3 Ml) Ud) 3 ml INH RQ6 [facility] Last Admin: 03/18/18 07:05 Dose: 3 ml Amlodipine Besylate (Norvasc) 5 mg PO DAILY [facility] Last Admin: 03/18/18 10:29 Dose: 5 mg Clonidine HCl (Catapres) 0.1 mg PO BID [facility] Last Admin: 03/18/18 10:29 Dose: 0.1 mg Clopidogrel Bisulfate (Plavix) 75 mg PO DAILY [facility] Last Admin: 03/18/18 10:29 Dose: 75 mg Diphenhydramine HCl (Benadryl) 25 mg PO DAILY PRN PRN Reason: Insomnia Last Admin: 03/17/18 21:18 Dose: 25 mg Famotidine (Pepcid) 20 mg PO DAILY [facility] Last Admin: 03/18/18 10:30 Dose: 20 mg Ferrous Sulfate (Feosol) 325 mg PO DAILY [facility] Last Admin: 03/18/18 10:29 Dose: 325 mg Gabapentin (Neurontin) 100 mg PO TID [facility] Last Admin: 03/18/18 10:28 Dose: 100 mg Insulin Aspart (Novolog) 0 unit SC ACHS [facility] PRN Reason: Protocol Last Admin: 03/18/18 08:35 Dose: 6 unit Losartan Potassium (Cozaar) 100 mg PO DAILY [facility] Last Admin: 03/18/18 10:30 Dose: 100 mg Metoclopramide HCl (Reglan) 10 mg PO Q8 [facility] Last Admin: 03/18/18 05:21 Dose: 10 mg Metoprolol Succinate (Toprol Xl) 50 mg PO DAILY [facility] Last Admin: 03/18/18 10:29 Dose: 50 mg Ondansetron HCl (Zofran Inj) 4 mg IVP Q6H PRN PRN Reason: Nausea/Vomiting Last Admin: 03/14/18 23:54 Dose: 4 mg Oxybutynin Chloride (Ditropan Xl) 5 mg PO DAILY [facility] Last Admin: 03/18/18 10:40 Dose: 5 mg Rosuvastatin Calcium (Crestor) 5 mg PO HS [facility] Last Admin: 03/17/18 21:18 Dose: 5 mg Tramadol HCl (Ultram) 50 mg PO Q8 PRN PRN Reason: Pain, moderate (4-7) Last Admin: 03/18/18 05:26 Dose: 50 mg - Labs Labs: 03/17/18 14:21 03/17/18 14:21 PT 14.0 SECONDS (9.7-12.2) H 03/14/18 19:20 INR 1.2 03/14/18 19:20 APTT 37 SECONDS (21-34) H 03/14/18 19:20 - Constitutional Appears: No Acute Distress, Older Than Stated Age, Chronically Ill - Head Exam Head Exam: NORMAL INSPECTION, NORMOCEPHALIC - Eye Exam Eye Exam: Normal appearance, PERRL - ENT Exam ENT Exam: Mucous Membranes Moist, Normal Exam - Neck Exam Neck Exam: Full ROM, Normal Inspection - Respiratory Exam Respiratory Exam: Clear to Ausculation Bilateral, NORMAL BREATHING PATTERN - Cardiovascular Exam Cardiovascular Exam: REGULAR RHYTHM, RRR - GI/Abdominal Exam GI & Abdominal Exam: Distended, Soft - Extremities Exam Extremities Exam: Full ROM, Normal Inspection - Neurological Exam Neurological Exam: Alert, Awake, Oriented x3 - Psychiatric Exam Psychiatric exam: Normal Affect, Normal Mood - Skin Skin Exam: Dry, Intact Assessment and Plan (1) Diabetic gastroparesis Status: Acute (2) Nausea & vomiting Status: Acute (3) Anemia Status: Acute (4) CHF (congestive heart failure) Status: Acute (5) Diabetes mellitus with ESRD (end-stage renal disease) Status: Acute - Assessment and Plan (Free Text) Assessment: maintain hd mwf bp acceptable supportive care
--- NOTE | 2018-03-18 15:07 | CP.PCM.PN ---
Subjective - Date & Time of Evaluation Date of Evaluation: 03/18/18 Time of Evaluation: 15:04 - Subjective Subjective: UPON MORNING MULTIDISCIPLINARY ROUNDS, IT WAS DISCUSSED THAT PT STILL HAS NOT HAD THORACENTESIS FOR RECURRENT RIGHT PLEURAL EFFUSION. ORDER PLACED WITH IR FOR THORA TO BE DONE. PER IR, PT NEEDS TO BE OFF PLAVIX TOMORROW AND THEY WILL DO PROCEDURE ON SATURDAY. NOTIFIED DR. MANTILLA. NO FURTHER ORDERS FOR NOW. Objective - Vital Signs/Intake and Output Vital Signs (last 24 hours): Temp Pulse Resp BP Pulse Ox 98.6 F 96 H 20 150/89 95 03/18/18 07:47 03/18/18 10:42 03/18/18 07:47 03/18/18 07:47 03/18/18 10:42 Intake and Output: 03/18/18 03/18/18 06:59 18:59 Intake Total 520 Balance 520 - Medications Medications: Current Medications Albuterol/Ipratropium (Duoneb 3 Mg/0.5 Mg (3 Ml) Ud) 3 ml INH RQ6 [facility] Last Admin: 03/18/18 07:05 Dose: 3 ml Amlodipine Besylate (Norvasc) 5 mg PO DAILY [facility] Last Admin: 03/18/18 10:29 Dose: 5 mg Clonidine HCl (Catapres) 0.1 mg PO BID [facility] Last Admin: 03/18/18 10:29 Dose: 0.1 mg Clopidogrel Bisulfate (Plavix) 75 mg PO DAILY [facility] Last Admin: 03/18/18 10:29 Dose: 75 mg Diphenhydramine HCl (Benadryl) 25 mg PO DAILY PRN PRN Reason: Insomnia Last Admin: 03/17/18 21:18 Dose: 25 mg Famotidine (Pepcid) 20 mg PO DAILY [facility] Last Admin: 03/18/18 10:30 Dose: 20 mg Ferrous Sulfate (Feosol) 325 mg PO DAILY [facility] Last Admin: 03/18/18 10:29 Dose: 325 mg Gabapentin (Neurontin) 100 mg PO TID [facility] Last Admin: 03/18/18 13:12 Dose: 100 mg Insulin Aspart (Novolog) 0 unit SC ACHS [facility] PRN Reason: Protocol Last Admin: 03/18/18 12:35 Dose: 10 unit Losartan Potassium (Cozaar) 100 mg PO DAILY [facility] Last Admin: 03/18/18 10:30 Dose: 100 mg Metoclopramide HCl (Reglan) 10 mg PO Q8 [facility] Last Admin: 03/18/18 13:12 Dose: 10 mg Metoprolol Succinate (Toprol Xl) 50 mg PO DAILY [facility] Last Admin: 03/18/18 10:29 Dose: 50 mg Ondansetron HCl (Zofran Inj) 4 mg IVP Q6H PRN PRN Reason: Nausea/Vomiting Last Admin: 03/14/18 23:54 Dose: 4 mg Oxybutynin Chloride (Ditropan Xl) 5 mg PO DAILY [facility] Last Admin: 03/18/18 10:40 Dose: 5 mg Rosuvastatin Calcium (Crestor) 5 mg PO HS [facility] Last Admin: 03/17/18 21:18 Dose: 5 mg Tramadol HCl (Ultram) 50 mg PO Q8 PRN PRN Reason: Pain, moderate (4-7) Last Admin: 03/18/18 05:26 Dose: 50 mg - Labs Labs: 03/17/18 14:21 03/17/18 14:21 PT 14.0 SECONDS (9.7-12.2) H 03/14/18 19:20 INR 1.2 03/14/18 19:20 APTT 37 SECONDS (21-34) H 03/14/18 19:20
[2018-03-18] MEDS ORDERED: POLYETHYLENE GLYCOL 3350 17 GM/Dose PACKET PO ONE (15:30)
--- NOTE | 2018-03-18 16:44 | CP.PCM.PN ---
Subjective - Date & Time of Evaluation Date of Evaluation: 03/18/18 Time of Evaluation: 16:44 Objective - Vital Signs/Intake and Output Vital Signs (last 24 hours): Temp Pulse Resp BP Pulse Ox 97.3 F L 88 20 141/85 97 03/18/18 16:00 03/18/18 16:00 03/18/18 16:00 03/18/18 16:00 03/18/18 16:00 Intake and Output: 03/18/18 03/18/18 06:59 18:59 Intake Total 520 Balance 520 - Medications Medications: Current Medications Albuterol/Ipratropium (Duoneb 3 Mg/0.5 Mg (3 Ml) Ud) 3 ml INH RQ6 [facility] Last Admin: 03/18/18 07:05 Dose: 3 ml Amlodipine Besylate (Norvasc) 5 mg PO DAILY [facility] Last Admin: 03/18/18 10:29 Dose: 5 mg Clonidine HCl (Catapres) 0.1 mg PO BID [facility] Last Admin: 03/18/18 10:29 Dose: 0.1 mg Clopidogrel Bisulfate (Plavix) 75 mg PO DAILY [facility] Last Admin: 03/18/18 10:29 Dose: 75 mg Diphenhydramine HCl (Benadryl) 25 mg PO DAILY PRN PRN Reason: Insomnia Last Admin: 03/17/18 21:18 Dose: 25 mg Famotidine (Pepcid) 20 mg PO DAILY [facility] Last Admin: 03/18/18 10:30 Dose: 20 mg Ferrous Sulfate (Feosol) 325 mg PO DAILY [facility] Last Admin: 03/18/18 10:29 Dose: 325 mg Gabapentin (Neurontin) 100 mg PO TID [facility] Last Admin: 03/18/18 13:12 Dose: 100 mg Insulin Aspart (Novolog) 0 unit SC ACHS [facility] PRN Reason: Protocol Last Admin: 03/18/18 12:35 Dose: 10 unit Losartan Potassium (Cozaar) 100 mg PO DAILY [facility] Last Admin: 03/18/18 10:30 Dose: 100 mg Metoclopramide HCl (Reglan) 10 mg PO Q8 [facility] Last Admin: 03/18/18 13:12 Dose: 10 mg Metoprolol Succinate (Toprol Xl) 50 mg PO DAILY [facility] Last Admin: 03/18/18 10:29 Dose: 50 mg Ondansetron HCl (Zofran Inj) 4 mg IVP Q6H PRN PRN Reason: Nausea/Vomiting Last Admin: 03/14/18 23:54 Dose: 4 mg Oxybutynin Chloride (Ditropan Xl) 5 mg PO DAILY [facility] Last Admin: 03/18/18 10:40 Dose: 5 mg Rosuvastatin Calcium (Crestor) 5 mg PO HS [facility] Last Admin: 03/17/18 21:18 Dose: 5 mg Tramadol HCl (Ultram) 50 mg PO Q8 PRN PRN Reason: Pain, moderate (4-7) Last Admin: 03/18/18 05:26 Dose: 50 mg - Labs Labs: 03/17/18 14:21 03/17/18 14:21 PT 14.0 SECONDS (9.7-12.2) H 03/14/18 19:20 INR 1.2 03/14/18 19:20 APTT 37 SECONDS (21-34) H 03/14/18 19:20
[2018-03-18] MEDS ORDERED: Midazolam 2 MG/2 ML VIAL ONE (19:14)
[2018-03-19] MEDS: Albuterol-Ipratrop 3 mg / 0.5 (3 ml) UD INH SCH ×4 (01:54→19:36)
[2018-03-19] MEDS: (Novolog) Insulin Aspart, Recombinant 100 u/ml 10 ml vial SC SCH ×5 (08:13→22:12)
[2018-03-19] MEDS: Metoprolol Succinate 50 mg XL Tab PO SCH ×2 (11:00→13:09)
--- NOTE | 2018-03-19 14:34 | CP.PCM.PN ---
Subjective - Date & Time of Evaluation Date of Evaluation: 03/19/18 Time of Evaluation: 14:31 - Subjective Subjective: s/p dialysis now- UF 2000ml no more n, v, diarhhea claims still SOB despite dialysis BP labile Objective - Vital Signs/Intake and Output Vital Signs (last 24 hours): Temp Pulse Resp BP Pulse Ox 97.9 F 108 H 16 155/86 H 100 03/19/18 12:05 03/19/18 13:10 03/19/18 12:05 03/19/18 13:10 03/19/18 12:05 Intake and Output: 03/19/18 03/19/18 06:59 18:59 Intake Total 120 Balance 120 - Medications Medications: Current Medications Albuterol/Ipratropium (Duoneb 3 Mg/0.5 Mg (3 Ml) Ud) 3 ml INH RQ6 [facility] Last Admin: 03/19/18 14:13 Dose: 3 ml Amlodipine Besylate (Norvasc) 5 mg PO DAILY [facility] Last Admin: 03/19/18 13:09 Dose: 5 mg Clonidine HCl (Catapres) 0.1 mg PO BID [facility] Last Admin: 03/19/18 11:00 Dose: Not Given Clopidogrel Bisulfate (Plavix) 75 mg PO DAILY [facility] Last Admin: 03/18/18 10:29 Dose: 75 mg Diphenhydramine HCl (Benadryl) 25 mg PO DAILY PRN PRN Reason: Insomnia Last Admin: 03/18/18 21:20 Dose: 25 mg Famotidine (Pepcid) 20 mg PO DAILY [facility] Last Admin: 03/19/18 13:05 Dose: 20 mg Ferrous Sulfate (Feosol) 325 mg PO DAILY [facility] Last Admin: 03/19/18 13:04 Dose: 325 mg Gabapentin (Neurontin) 100 mg PO TID [facility] Last Admin: 03/19/18 13:01 Dose: 100 mg Insulin Aspart (Novolog) 0 unit SC ACHS [facility] PRN Reason: Protocol Last Admin: 03/19/18 12:59 Dose: 3 unit Losartan Potassium (Cozaar) 100 mg PO DAILY [facility] Last Admin: 03/19/18 13:09 Dose: 100 mg Metoclopramide HCl (Reglan) 10 mg PO Q8 [facility] Last Admin: 03/19/18 13:01 Dose: 10 mg Metoprolol Succinate (Toprol Xl) 50 mg PO DAILY [facility] Last Admin: 03/19/18 13:09 Dose: 50 mg Ondansetron HCl (Zofran Inj) 4 mg IVP Q6H PRN PRN Reason: Nausea/Vomiting Last Admin: 03/14/18 23:54 Dose: 4 mg Oxybutynin Chloride (Ditropan Xl) 5 mg PO DAILY [facility] Last Admin: 03/19/18 13:06 Dose: 5 mg Rosuvastatin Calcium (Crestor) 5 mg PO HS [facility] Last Admin: 03/18/18 21:20 Dose: 5 mg Tramadol HCl (Ultram) 50 mg PO Q8 PRN PRN Reason: Pain, moderate (4-7) Last Admin: 03/19/18 13:00 Dose: 50 mg - Labs Labs: 03/17/18 14:21 03/17/18 14:21 PT 14.0 SECONDS (9.7-12.2) H 03/14/18 19:20 INR 1.2 03/14/18 19:20 APTT 37 SECONDS (21-34) H 03/14/18 19:20 - Constitutional Appears: No Acute Distress, Chronically Ill - Head Exam Head Exam: ATRAUMATIC, NORMAL INSPECTION - Eye Exam Eye Exam: EOMI - Neck Exam Neck Exam: Normal Inspection. absent: Tenderness - Respiratory Exam Respiratory Exam: Clear to Ausculation Bilateral, NORMAL BREATHING PATTERN - Cardiovascular Exam Cardiovascular Exam: REGULAR RHYTHM, +S1 - GI/Abdominal Exam GI & Abdominal Exam: Soft. absent: Tenderness - Extremities Exam Extremities Exam: Normal Inspection. absent: Tenderness - Neurological Exam Neurological Exam: Alert, CN II-XII Intact - Skin Skin Exam: Dry, Warm Assessment and Plan (1) Diabetic gastroparesis Status: Acute (2) Nausea & vomiting Status: Acute (3) Diabetes mellitus with ESRD (end-stage renal disease) Status: Acute - Assessment and Plan (Free Text) Plan: Increase UF goal with dialysis Consider extra HD in AM if still SOB
[2018-03-19] MEDS ORDERED: Bisacodyl 5mg EC Tab PO ONE (15:30)
--- NOTE | 2018-03-19 18:36 | CP.PCM.PN ---
Subjective - Date & Time of Evaluation Date of Evaluation: 03/19/18 Time of Evaluation: 18:36 Objective - Vital Signs/Intake and Output Vital Signs (last 24 hours): Temp Pulse Resp BP Pulse Ox 98.4 F 98 H 22 170/88 H 99 03/19/18 15:00 03/19/18 15:00 03/19/18 15:00 03/19/18 15:00 03/19/18 15:00 Intake and Output: 03/19/18 03/19/18 06:59 18:59 Intake Total 120 400 Balance 120 400 - Medications Medications: Current Medications Albuterol/Ipratropium (Duoneb 3 Mg/0.5 Mg (3 Ml) Ud) 3 ml INH RQ6 [facility] Last Admin: 03/19/18 14:13 Dose: 3 ml Amlodipine Besylate (Norvasc) 5 mg PO DAILY [facility] Last Admin: 03/19/18 13:09 Dose: 5 mg Clonidine HCl (Catapres) 0.2 mg PO BID [facility] Last Admin: 03/19/18 17:16 Dose: 0.2 mg Clopidogrel Bisulfate (Plavix) 75 mg PO DAILY [facility] Last Admin: 03/18/18 10:29 Dose: 75 mg Diphenhydramine HCl (Benadryl) 25 mg PO DAILY PRN PRN Reason: Insomnia Last Admin: 03/18/18 21:20 Dose: 25 mg Docusate Sodium (Colace) 100 mg PO BID [facility] Last Admin: 03/19/18 17:15 Dose: 100 mg Famotidine (Pepcid) 20 mg PO DAILY [facility] Last Admin: 03/19/18 13:05 Dose: 20 mg Ferrous Sulfate (Feosol) 325 mg PO DAILY [facility] Last Admin: 03/19/18 13:04 Dose: 325 mg Gabapentin (Neurontin) 100 mg PO TID [facility] Last Admin: 03/19/18 17:15 Dose: 100 mg Insulin Aspart (Novolog) 0 unit SC ACHS [facility] PRN Reason: Protocol Last Admin: 03/19/18 17:16 Dose: 6 unit Losartan Potassium (Cozaar) 100 mg PO DAILY [facility] Last Admin: 03/19/18 13:09 Dose: 100 mg Metoclopramide HCl (Reglan) 10 mg PO Q8 [facility] Last Admin: 03/19/18 13:01 Dose: 10 mg Metoprolol Succinate (Toprol Xl) 50 mg PO DAILY [facility] Last Admin: 03/19/18 13:09 Dose: 50 mg Ondansetron HCl (Zofran Inj) 4 mg IVP Q6H PRN PRN Reason: Nausea/Vomiting Last Admin: 03/14/18 23:54 Dose: 4 mg Oxybutynin Chloride (Ditropan Xl) 5 mg PO DAILY [facility] Last Admin: 03/19/18 13:06 Dose: 5 mg Rosuvastatin Calcium (Crestor) 5 mg PO HS [facility] Last Admin: 03/18/18 21:20 Dose: 5 mg Tramadol HCl (Ultram) 50 mg PO Q8 PRN PRN Reason: Pain, moderate (4-7) Last Admin: 03/19/18 13:00 Dose: 50 mg - Labs Labs: 03/17/18 14:21 03/17/18 14:21 PT 14.0 SECONDS (9.7-12.2) H 03/14/18 19:20 INR 1.2 03/14/18 19:20 APTT 37 SECONDS (21-34) H 03/14/18 19:20
[2018-03-20] MEDS: Albuterol-Ipratrop 3 mg / 0.5 (3 ml) UD INH SCH ×4 (01:36→19:31)
[2018-03-20] MEDS: (Novolog) Insulin Aspart, Recombinant 100 u/ml 10 ml vial SC SCH ×4 (08:45→21:45)
[2018-03-20] MEDS: Metoprolol Succinate 50 mg XL Tab PO SCH (09:22)
[2018-03-20 09:48] LABS: BASO % 0.5 % (0.0-2.0); EOS # 0.2 K/uL (0.0-0.7); EOS % 3.6 % (0.0-4.0); HEMOGLOBIN 9.3 g/dL (11.0-16.0); LYMPH # 1.2 K/uL (1.0-4.3); LYMPH % 18.2 % (20.0-40.0); MEAN CELL VOLUME 91.7 fL (81.0-99.0); MEAN CORPUSCULAR HEMOGLOBIN 30.2 pg (27.0-31.0); MEAN PLATELET VOLUME 9.6 fL (7.2-11.7); MONO # 0.9 K/uL (0.0-0.8); MONO % 13.5 % (0.0-10.0); NEUT # 4.3 K/uL (1.8-7.0); NEUT % 64.2 % (50.0-75.0); RBC 3.07 Mil/uL (3.80-5.20); RED CELL DISTRIBUTION WIDTH 17.4 % (11.5-14.5); WHITE BLOOD COUNT 6.6 K/uL (4.8-10.8)
--- NOTE | 2018-03-20 09:57 | CP.PCM.PN ---
Subjective - Date & Time of Evaluation Date of Evaluation: 03/20/18 Time of Evaluation: 09:55 - Subjective Subjective: s/p dialysis 5/2- tolerated well for thoracentesis today as per nursing BP controlled Hg < 10 now no more n, v, diarrhea. less SOB, no CPs Objective - Vital Signs/Intake and Output Vital Signs (last 24 hours): Temp Pulse Resp BP Pulse Ox 98.8 F 94 H 20 150/86 100 03/20/18 08:10 03/20/18 08:10 03/20/18 08:10 03/20/18 08:10 03/20/18 08:10 Intake and Output: 03/20/18 03/20/18 06:59 18:59 Intake Total 200 Balance 200 - Medications Medications: Current Medications Albuterol/Ipratropium (Duoneb 3 Mg/0.5 Mg (3 Ml) Ud) 3 ml INH RQ6 [facility] Last Admin: 03/20/18 07:39 Dose: 3 ml Amlodipine Besylate (Norvasc) 5 mg PO DAILY [facility] Last Admin: 03/19/18 13:09 Dose: 5 mg Clonidine HCl (Catapres) 0.2 mg PO BID [facility] Last Admin: 03/20/18 09:23 Dose: 0.2 mg Clopidogrel Bisulfate (Plavix) 75 mg PO DAILY [facility] Last Admin: 03/18/18 10:29 Dose: 75 mg Diphenhydramine HCl (Benadryl) 25 mg PO DAILY PRN PRN Reason: Insomnia Last Admin: 03/19/18 21:13 Dose: 25 mg Docusate Sodium (Colace) 100 mg PO BID [facility] Last Admin: 03/20/18 09:22 Dose: 100 mg Epoetin Kevin (Procrit) 10,000 unit IV F [facility] Famotidine (Pepcid) 20 mg PO DAILY [facility] Last Admin: 03/20/18 09:23 Dose: 20 mg Ferrous Sulfate (Feosol) 325 mg PO DAILY [facility] Last Admin: 03/20/18 09:23 Dose: 325 mg Gabapentin (Neurontin) 100 mg PO TID [facility] Last Admin: 03/20/18 09:22 Dose: 100 mg Insulin Aspart (Novolog) 0 unit SC ACHS [facility] PRN Reason: Protocol Last Admin: 03/20/18 08:45 Dose: 6 unit Losartan Potassium (Cozaar) 100 mg PO DAILY [facility] Last Admin: 03/20/18 09:22 Dose: 100 mg Metoclopramide HCl (Reglan) 10 mg PO Q8 [facility] Last Admin: 03/20/18 05:08 Dose: 10 mg Metoprolol Succinate (Toprol Xl) 50 mg PO DAILY [facility] Last Admin: 03/20/18 09:22 Dose: 50 mg Ondansetron HCl (Zofran Inj) 4 mg IVP Q6H PRN PRN Reason: Nausea/Vomiting Last Admin: 03/14/18 23:54 Dose: 4 mg Oxybutynin Chloride (Ditropan Xl) 5 mg PO DAILY [facility] Last Admin: 03/20/18 09:24 Dose: 5 mg Rosuvastatin Calcium (Crestor) 5 mg PO [facility] Last Admin: 03/19/18 21:13 Dose: 5 mg Tramadol HCl (Ultram) 50 mg PO Q8 PRN PRN Reason: Pain, moderate (4-7) Last Admin: 03/20/18 09:23 Dose: 50 mg - Labs Labs: 03/20/18 09:38 03/17/18 14:21 PT 14.0 SECONDS (9.7-12.2) H 03/14/18 19:20 INR 1.2 03/14/18 19:20 APTT 37 SECONDS (21-34) H 03/14/18 19:20 - Constitutional Appears: No Acute Distress, Chronically Ill - Head Exam Head Exam: ATRAUMATIC, NORMAL INSPECTION - Eye Exam Eye Exam: EOMI, Normal appearance - Neck Exam Neck Exam: Normal Inspection. absent: Tenderness - Respiratory Exam Respiratory Exam: Decreased Breath Sounds, NORMAL BREATHING PATTERN - Cardiovascular Exam Cardiovascular Exam: REGULAR RHYTHM, +S1 - GI/Abdominal Exam GI & Abdominal Exam: Soft. absent: Tenderness - Extremities Exam Extremities Exam: Normal Inspection. absent: Tenderness - Neurological Exam Neurological Exam: Awake, CN II-XII Intact - Skin Skin Exam: Dry, Warm Assessment and Plan (1) Diabetic gastroparesis Status: Acute (2) Nausea & vomiting Status: Acute (3) Diabetes mellitus with ESRD (end-stage renal disease) Status: Acute - Assessment and Plan (Free Text) Plan: dialysis MWF thoracentesis Same meds Add ESAs
[2018-03-20 10:03] LABS: INR 1.2; PROTHROMBIN TIME 14.1 SECONDS (9.7-12.2)
[2018-03-20 10:33] LABS: CALCIUM 8.9 mg/dl (8.6-10.4)
--- NOTE | 2018-03-20 11:02 | PCM.SURG1 ---
Surgeon's Initial Post Op Note - Surgeon's Notes Surgeon: Cristiano Keita MD [employer] Associate: NONE Type of Anesthesia: Local Pre-Operative Diagnosis: Pleural effusion Operative Findings: US showed large left pleural effusion Post-Operative Diagnosis: Pleural effusion Operation Performed: US guided left thoracentesis Specimen/Specimens Removed: 1500 cc of ayaan colored fluid Estimated Blood Loss: EBL {In ML}: 0 Blood Products Given: N/A Drains Used: No Drains Post-Op Condition: Fair Date of Surgery/Procedure: 03/20/18 Time of Surgery/Procedure: 11:00
--- NOTE | 2018-03-20 11:12 | US ---
PROCEDURE: Date of procedure: 03/20/2018 Procedure: 1. Ultrasound-guided Right thoracentesis, CPT 70318 Medications: 6cc 1% Lidocaine HISTORY: Right pleural effusion, shortness of breath TECHNIQUE: Following informed consent ,the Patients' right chest was marked. Procedure time-out was called, and the patient was placed in the sitting position and limited ultrasound showed a large right effusion. The patient's right back was prepped and draped in the usual sterile fashion. After the skin was anesthetized with lidocaine, a drainage catheter was advanced under ultrasound guidance into the pleural space. Ultrasound-guided thoracentesis was performed. A total of 1500 cubic centimeters of ayaan-colored fluid removed without complication. A Xeroform dressing was applied. IMPRESSION: Ultrasound guided Right thoracentesis. There were no immediate complications.
[2018-03-21] MEDS: Albuterol-Ipratrop 3 mg / 0.5 (3 ml) UD INH SCH ×3 (01:00→13:18)
[2018-03-21] MEDS: (Novolog) Insulin Aspart, Recombinant 100 u/ml 10 ml vial SC SCH ×2 (08:22→14:08)
[2018-03-21] MEDS ORDERED: Epoetin Alfa 10,000 unit/ml Dialysis IV SCH (09:00)
[2018-03-21 09:08] VITALS: O2SAT 99
[2018-03-21] MEDS: Metoprolol Succinate 50 mg XL Tab PO SCH (09:57)
[2018-03-21 12:45] VITALS: BP 150/94; PULSE 89; RESP 18; TEMP 97.3
--- NOTE | 2018-03-21 12:56 | CP.PCM.PN ---
Subjective - Date & Time of Evaluation Date of Evaluation: 03/21/18 Time of Evaluation: 12:53 - Subjective Subjective: s/p thoracentesis 5/3- removed 1500ml Seen at dialysis- tolerating well. Removed 3000ml Feels about same - same lethargy Started on ESAs BP labile Objective - Vital Signs/Intake and Output Vital Signs (last 24 hours): Temp Pulse Resp BP Pulse Ox 97.3 F L 89 18 150/94 H 99 03/21/18 12:05 03/21/18 12:05 03/21/18 12:05 03/21/18 12:05 03/21/18 12:05 Intake and Output: 03/21/18 03/21/18 06:59 18:59 Intake Total 100 200 Balance 100 200 - Medications Medications: Current Medications Albuterol/Ipratropium (Duoneb 3 Mg/0.5 Mg (3 Ml) Ud) 3 ml INH RQ6 [facility] Last Admin: 03/21/18 07:39 Dose: 3 ml Amlodipine Besylate (Norvasc) 5 mg PO DAILY [facility] Last Admin: 03/21/18 09:57 Dose: Not Given Clonidine HCl (Catapres) 0.2 mg PO BID [facility] Last Admin: 03/21/18 09:56 Dose: Not Given Clopidogrel Bisulfate (Plavix) 75 mg PO DAILY [facility] Last Admin: 03/18/18 10:29 Dose: 75 mg Diphenhydramine HCl (Benadryl) 25 mg PO DAILY PRN PRN Reason: Insomnia Last Admin: 03/20/18 21:44 Dose: 25 mg Docusate Sodium (Colace) 100 mg PO BID [facility] Last Admin: 03/21/18 09:56 Dose: Not Given Epoetin Kevin (Procrit) 10,000 unit IV MWF [facility] Famotidine (Pepcid) 20 mg PO DAILY [facility] Last Admin: 03/21/18 09:57 Dose: Not Given Ferrous Sulfate (Feosol) 325 mg PO DAILY [facility] Last Admin: 03/21/18 09:57 Dose: Not Given Gabapentin (Neurontin) 100 mg PO TID [facility] Last Admin: 03/21/18 09:57 Dose: Not Given Home Med (Patient's Own Injectable) 70 unit SC ACBD [facility] Insulin Aspart (Novolog) 0 unit SC ACHS [facility] PRN Reason: Protocol Last Admin: 03/21/18 08:22 Dose: 6 unit Losartan Potassium (Cozaar) 100 mg PO DAILY [facility] Last Admin: 03/21/18 09:56 Dose: Not Given Metoclopramide HCl (Reglan) 10 mg PO Q8 [facility] Last Admin: 03/21/18 05:41 Dose: 10 mg Metoprolol Succinate (Toprol Xl) 50 mg PO DAILY [facility] Last Admin: 03/21/18 09:57 Dose: Not Given Ondansetron HCl (Zofran Inj) 4 mg IVP Q6H PRN PRN Reason: Nausea/Vomiting Last Admin: 03/14/18 23:54 Dose: 4 mg Oxybutynin Chloride (Ditropan Xl) 5 mg PO DAILY [facility] Last Admin: 03/21/18 09:57 Dose: Not Given Rosuvastatin Calcium (Crestor) 5 mg PO HS [facility] Last Admin: 03/20/18 21:44 Dose: 5 mg Tramadol HCl (Ultram) 50 mg PO Q8 PRN PRN Reason: Pain, moderate (4-7) Last Admin: 03/21/18 08:23 Dose: 50 mg - Labs Labs: 03/20/18 09:38 03/20/18 09:38 PT 14.1 SECONDS (9.7-12.2) H 03/20/18 09:38 INR 1.2 03/20/18 09:38 APTT 37 SECONDS (21-34) H 03/14/18 19:20 - Constitutional Appears: No Acute Distress, Chronically Ill - Head Exam Head Exam: ATRAUMATIC, NORMAL INSPECTION - Eye Exam Eye Exam: EOMI, Normal appearance - Neck Exam Neck Exam: Normal Inspection. absent: Tenderness - Respiratory Exam Respiratory Exam: Decreased Breath Sounds, NORMAL BREATHING PATTERN - Cardiovascular Exam Cardiovascular Exam: REGULAR RHYTHM, +S1 - GI/Abdominal Exam GI & Abdominal Exam: Soft. absent: Tenderness - Extremities Exam Extremities Exam: Normal Inspection. absent: Tenderness - Neurological Exam Neurological Exam: Alert, CN II-XII Intact - Skin Skin Exam: Dry, Warm Assessment and Plan (1) Diabetic gastroparesis Status: Acute (2) Nausea & vomiting Status: Acute (3) Diabetes mellitus with ESRD (end-stage renal disease) Status: Acute (4) Fluid overload Status: Acute - Assessment and Plan (Free Text) Plan: Same aggressive UF with HD Monitor BP- adjust meds as needed
[2018-03-21] MEDS ORDERED: Metoprolol Succinate 100 mg XL Tab PO SCH (13:00)
--- NOTE | 2018-03-21 14:26 | CP.PCM.DIS ---
Provider - Provider Date of Admission: 03/14/18 19:11 Attending physician: Bertha Walker MD [facility] Course - Lab Results Lab Results: Most Recent Lab Values WBC 6.6 K/uL (4.8-10.8) 03/20/18 09:38 RBC 3.07 Mil/uL (3.80-5.20) L 03/20/18 09:38 Hgb 9.3 g/dL (11.0-16.0) L 03/20/18 09:38 Hct 28.2 % (34.0-47.0) L 03/20/18 09:38 MCV 91.7 fL (81.0-99.0) 03/20/18 09:38 MCH 30.2 pg (27.0-31.0) 03/20/18 09:38 MCHC 33.0 g/dL (33.0-37.0) 03/20/18 09:38 RDW 17.4 % (11.5-14.5) H 03/20/18 09:38 Plt Count 206 K/uL (130-400) 03/20/18 09:38 MPV 9.6 fL (7.2-11.7) 03/20/18 09:38 Neut % (Auto) 64.2 % (50.0-75.0) 03/20/18 09:38 Lymph % (Auto) 18.2 % (20.0-40.0) L 03/20/18 09:38 Kleberg % (Auto) 13.5 % (0.0-10.0) H 03/20/18 09:38 Eos % (Auto) 3.6 % (0.0-4.0) 03/20/18 09:38 Baso % (Auto) 0.5 % (0.0-2.0) 03/20/18 09:38 Neut # (Auto) 4.3 K/uL (1.8-7.0) 03/20/18 09:38 Lymph # (Auto) 1.2 K/uL (1.0-4.3) 03/20/18 09:38 Kleberg # (Auto) 0.9 K/uL (0.0-0.8) H 03/20/18 09:38 Eos # (Auto) 0.2 K/uL (0.0-0.7) 03/20/18 09:38 Baso # (Auto) 0.0 K/uL (0.0-0.2) 03/20/18 09:38 PT 14.1 SECONDS (9.7-12.2) H 03/20/18 09:38 INR 1.2 03/20/18 09:38 APTT 37 SECONDS (21-34) H 03/14/18 19:20 Sodium 139 mmol/L (132-148) 03/20/18 09:38 Potassium 5.4 mmol/L (3.6-5.2) H 03/20/18 09:38 Chloride 95 mmol/L (98-107) L 03/20/18 09:38 Carbon Dioxide 26 mmol/L (22-30) 03/20/18 09:38 Anion Gap 23 (10-20) H 03/20/18 09:38 BUN 40 mg/dL (7-17) H 03/20/18 09:38 Creatinine 5.9 mg/dL (0.7-1.2) H 03/20/18 09:38 Est GFR ( Amer) 9 03/20/18 09:38 Est GFR (Non-Af Amer) 8 03/20/18 09:38 POC Glucose (mg/dL) 132 mg/dL (65-110) H 03/21/18 13:09 Random Glucose 430 mg/dL (65-105) H* D 03/20/18 09:38 Calcium 8.9 mg/dl (8.6-10.4) 03/20/18 09:38 Phosphorus 3.5 mg/dL (2.5-4.5) 03/17/18 14:21 Total Bilirubin 2.2 mg/dL (0.2-1.3) H 03/17/18 14:21 AST 45 U/L (14-36) H 03/17/18 14:21 ALT 22 U/L (9-52) 03/17/18 14:21 Alkaline Phosphatase 1032 U/L (38-126) H 03/17/18 14:21 Troponin I 0.0290 ng/mL (0.00-0.120) 03/14/18 19:14 Total Protein 9.9 g/dL (6.3-8.3) H 03/17/18 14:21 Albumin 3.8 g/dL (3.5-5.0) 03/17/18 14:21 Globulin 6.1 gm/dL (2.2-3.9) H 03/17/18 14:21 Albumin/Globulin Ratio 0.6 (1.0-2.1) L 03/17/18 14:21 Lipase 101 U/L (23-300) 03/14/18 18:18 Beta HCG, Quant < 2.39 mIU/ML 03/15/18 16:52 PTH Intact Whole Molec 109 pg/mL (14-64) H 03/17/18 14:21 Discharge Exam - Head Exam Head Exam: ATRAUMATIC, NORMAL INSPECTION Discharge Plan - Follow Up Plan Condition: GOOD Disposition: HOME/ ROUTINE Instructions: Nausea and Vomiting, Adult (DC), Pleural Effusion (DC) Referrals: Bertha Walker MD [Staff Provider] -
--- NOTE | 2018-03-21 17:21 | CP.PCM.PN ---
Subjective - Date & Time of Evaluation Date of Evaluation: 03/21/18 Time of Evaluation: 11:00 - Subjective Subjective: Alert, awake, no sob or chest pains. Objective - Vital Signs/Intake and Output Vital Signs (last 24 hours): Temp Pulse Resp BP Pulse Ox 97.3 F L 89 18 150/94 H 99 03/21/18 12:05 03/21/18 12:05 03/21/18 12:05 03/21/18 12:05 03/21/18 12:05 Intake and Output: 03/21/18 03/21/18 06:59 18:59 Intake Total 100 200 Balance 100 200 - Labs Labs: 03/20/18 09:38 03/20/18 09:38 PT 14.1 SECONDS (9.7-12.2) H 03/20/18 09:38 INR 1.2 03/20/18 09:38 APTT 37 SECONDS (21-34) H 03/14/18 19:20 Assessment and Plan - Assessment and Plan (Free Text) Assessment: Patient is seen and examined post dialysis today. Alert and orientedx3, denies sob or dizziness. Had thoracentesis done yesterday, drained >1000 ml fluid, feeling better with her breathing today. She has home oxygen and all her meds at home. Discussed with DR Walker, plan to discharge home today, advised to follow up with PMD in 1 week. To continue with HD MWF, as scheduled.
--- NOTE | 2018-03-23 10:59 | CARD ---
APPROVED REPORT EKG Measurement Heart [id number] <Conclusion> Normal sinus rhythm with sinus arrhythmia Possible Left atrial enlargement Septal infarct, age undetermined Abnormal ECG
== END 2018-03-21 15:03 | disposition home or self-care (01) | DRG 18 ==
LOC: C.ER 17:31 → C.9E 19:11 → C.3T 21:15
PROVIDERS: ADMIT Internal Medicine Critical Care Medicine; ATTEND Internal Medicine Critical Care Medicine
PROC: 5A1D70Z Performance of Urinary Filtration, Intermittent, Less than 6 Hours Per Day (ICD-10-PCS; 2018-03-17)
PROC: 0W993ZX Drainage of Right Pleural Cavity, Percutaneous Approach, Diagnostic (ICD-10-PCS; principal; 2018-03-20)
DX: E11.43 Type 2 diabetes mellitus with diabetic autonomic (poly)neuropathy (principal); I13.2 Hypertensive heart and chronic kidney disease with heart failure and with stage 5 chronic kidney disease, or end stage renal disease; I50.9 Heart failure, unspecified; J44.9 Chronic obstructive pulmonary disease, unspecified; N18.6 End stage renal disease; J90 Pleural effusion, not elsewhere classified; K31.84 Gastroparesis; E11.22 Type 2 diabetes mellitus with diabetic chronic kidney disease; E78.00 Pure hypercholesterolemia, unspecified; Z86.73 Personal history of transient ischemic attack (TIA), and cerebral infarction without residual deficits; D64.9 Anemia, unspecified; Z99.2 Dependence on renal dialysis; Z99.81 Dependence on supplemental oxygen; Z79.4 Long term (current) use of insulin

== ENCOUNTER 2018-05-12 19:21 | Inpatient (IN) | payer MEDICARE, OTHER ==
--- NOTE | 2018-05-12 19:52 | C.PDOC ---
History Of Present Illness Patient presents to the ER with a complaint of chest pain and SOB that began at approximately 18:00. Patient describes the pain as dull and achy and states it worsens somewhat with deep inspiration and movement. 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 Patient has Saturday, Saturday, Saturday dialysis and was last dialyzed today. Denies fever, chills, nausea, or vomiting. Time Seen by Provider: 05/12/18 19:47 Chief Complaint (Nursing): Chest Pain History Per: Patient History/Exam Limitations: no limitations Onset/Duration Of Symptoms: Hrs Current Symptoms Are (Timing): Still Present Severity: Moderate Pain Scale Rating Of: 5 Quality: Dull, Aching Associated Symptoms: Dyspnea. denies: Nausea, Diaphoresis, Syncope Exacerbating Factors: Movement, Deep Breathing Alleviating Factors: None Recent travel outside of the [place]: No Additional History Per: Patient Past Medical History Reviewed: Historical Data, Nursing Documentation, Vital Signs Vital Signs: Last Vital Signs Temp 99.2 F 05/12/18 19:32 Pulse 100 H 05/12/18 19:32 Resp 14 05/12/18 19:58 BP 133/75 05/12/18 20:17 Pulse Ox 99 05/12/18 20:01 - Medical History PMH: Anemia, Asthma, COPD, Diabetes (IDDM), Gastritis, HTN, Hypercholesterolemia , End Stage Renal Disease, Chronic Kidney Disease Surgical History: - [facility] Procedures (03/14/18) DILATION OF UPPER VEIN, PERCUTANEOUS APPROACH (01/18/18) DRAINAGE OF PERITONEAL CAVITY, PERCUTANEOUS APPROACH (01/18/18) DRAINAGE OF RIGHT PLEURAL CAVITY, PERC APPROACH, DIAGN (03/14/18) DRAINAGE OF RIGHT PLEURAL CAVITY, PERCUTANEOUS APPROACH (12/18/17) ESOPHAGOGASTRODUODENOSCOPY [EGD] W/CLOSED BIOPSY (06/18/15) EXCISION OF STOMACH, ENDO, DIAGN (09/02/16) INSERT INFUSION DEV IN R INT JUGULAR VEIN, PERC (01/18/18) INSERTION OF ENDOTRACHEAL AIRWAY INTO TRACHEA, VIA OPENING (01/18/18) OTHER SKIN & SUBQ I D (08/07/15) PERFORMANCE OF URINARY FILTRATION, MULTIPLE (09/02/16) PLAIN RADIOGRAPHY OF DIALYSIS SHUNT USING OTH CONTRAST (01/18/18) RESPIRATORY VENTILATION, 24-96 CONSECUTIVE HOURS (01/18/18) ULTRASONOGRAPHY OF LEFT UPPER EXTREMITY VEINS (09/02/16) ULTRASONOGRAPHY OF RIGHT JUGULAR VEINS, GUIDANCE (01/18/18) Family History: States: No Known Family Hx - Social History Hx Tobacco Use: No Hx Alcohol Use: No Hx Substance Use: No - Immunization History Hx Tetanus Toxoid Vaccination: No Hx Influenza Vaccination: No Hx Pneumococcal Vaccination: No Review Of Systems Constitutional: Negative for: Fever, Chills Eyes: Negative for: Redness ENT: Negative for: Throat Pain Cardiovascular: Positive for: Chest Pain Respiratory: Positive for: Shortness of Breath Gastrointestinal: Negative for: Nausea, Vomiting Genitourinary: Negative for: Vaginal Bleeding Musculoskeletal: Negative for: Back Pain Skin: Negative for: Rash Neurological: Negative for: Weakness Psych: Negative for: Anxiety Physical Exam - Physical Exam Appears: Non-toxic Skin: Warm, Dry Head: Normacephalic Eye(s): bilateral: Normal Inspection Oral Mucosa: Moist Neck: Supple Chest: Symmetrical, No Tenderness Cardiovascular: Rhythm Regular Respiratory: Rales (bases), No Rhonchi, No Wheezing Gastrointestinal/Abdominal: Soft, No Tenderness, No Distention, No Guarding Back: No CVA Tenderness Extremity: Pedal Edema (Trace), Other (Left arm graft with good thrill and bruit ) Extremity: Bilateral: Atraumatic Pulses: Left Dorsalis Pedis: Normal, Right Dorsalis Pedis: Normal Neurological/Psych: Oriented x3 Gait: Steady ED Course And Treatment - Laboratory Results Result Diagrams: 05/12/18 19:54 05/12/18 19:54 ECG: Interpreted By Me, Viewed By Me ECG Rhythm: Sinus Rhythm (100), Nonspecific Changes O2 Sat by Pulse Oximetry: 99 (Room air) Pulse Ox Interpretation: Normal - Radiology CXR: Interpreted by Me, Viewed By Me Disposition Discussed With : Cydney Kirkpatrick Comment: accepted the pt on his service and took over the care at 10:04 PM Doctor Will See Patient In The: Hospital Counseled Patient/Family Regarding: Studies Performed, Diagnosis - Disposition Disposition: HOSPITALIZED Disposition Time: 20:00 Condition: FAIR Forms: [facility] (Danish) - POA Present On Arrival: Poor Glycemic Control - Clinical Impression Clinical Impression: Chest pain, Dyspnea, Hyperglycemia, CHF (congestive heart failure), ESRD (end stage renal disease) - Scribe Statement The provider has reviewed the documentation as recorded by the Scribe Vince Torres All medical record entries made by the Fransiscaibaashish were at my direction and personally dictated by me. I have reviewed the chart and agree that the record accurately reflects my personal performance of the history, physical exam, medical decision making, and the department course for this patient. I have also personally directed, reviewed, and agree with the discharge instructions and disposition. Decision To Admit - Pt Status Changed To: Hospital Disposition Of: Inpatient - Admit Certification Admit to Inpatient:: After my assessment, the patient will require hospitalization for at least two midnights. This is because of the severity of symptoms shown, intensity of services needed, and/or the medical risk in this patient being treated as an outpatient. - InPatient: Physician Admission Certification: I certify that this patient requires 2 or more midnights of care for the following reason:: After my assessment, the patient will require hospitalization for at least two midnights. This is because of the severity of symptoms shown, intensity of services needed, and/or the medical risk in this patient being treated as an outpatient. - . Bed Request Type: Telemetry Admitting Physician: Cydney Kirkpatrick Patient Diagnosis: Chest pain, Dyspnea, Hyperglycemia, CHF (congestive heart failure), ESRD (end stage renal disease)
[2018-05-12 19:59] LABS: BASO # 0.1 K/uL (0.0-0.2); BASO % 1.1 % (0.0-2.0); EOS # 0.1 K/uL (0.0-0.7); LYMPH # 1.3 K/uL (1.0-4.3); LYMPH % 11.9 % (20.0-40.0); MEAN CORPUSCULAR HEMOGLOBIN 27.8 pg (27.0-31.0); MEAN CORPUSCULAR HGB CONC 31.9 g/dL (33.0-37.0); MEAN PLATELET VOLUME 9.6 fL (7.2-11.7); MONO # 1.4 K/uL (0.0-0.8); MONO % 12.9 % (0.0-10.0); NEUT # 8.1 K/uL (1.8-7.0); NEUT % 73.1 % (50.0-75.0); RBC 2.44 Mil/uL (3.80-5.20); RED CELL DISTRIBUTION WIDTH 16.3 % (11.5-14.5); WHITE BLOOD COUNT 11.1 K/uL (4.8-10.8)
[2018-05-12 20:00] LABS: HEMOGLOBIN 6.8 g/dL (11.0-16.0); MEAN CELL VOLUME 87.4 fL (81.0-99.0)
[2018-05-12 20:14] LABS: GFR AFRICAN-AMERICAN 19; GFR NON-AFRICAN AMERICAN 15
[2018-05-12 20:15] LABS: INR 1.4; PROTHROMBIN TIME 15.6 SECONDS (9.7-12.2)
[2018-05-12 20:16] LABS: ALB/GLOB RATIO 0.7 (1.0-2.1); ALT/SGPT < 6 U/L (9-52); AST/SGOT 80 U/L (14-36); BLOOD UREA NITROGEN 37 mg/dL (7-17)
[2018-05-12 20:46] LABS: B-TYPE NATRIURETIC PEPTIDE 48000 pg/mL (0-450)
[2018-05-12] MEDS ORDERED: LACTULOSE 10 GM PO PRN (22:36)
[2018-05-12] MEDS ORDERED: Albuterol HFA 90 mcg/actuation (8 g) IH PRN (22:36)
[2018-05-13] MEDS: Albuterol-Ipratrop 3 mg / 0.5 (3 ml) UD IH SCH ×6 (00:30→23:55)
[2018-05-13 06:33] LABS: CK-MB 0.96 ng/mL (0.0-3.38)
[2018-05-13 07:06] LABS: TROPONIN I 0.017 ng/mL (0.00-0.120)
[2018-05-13] MEDS ORDERED: Sod Polystyrene Sulf 15 gm/60 ml Susp PO ONE (09:06)
[2018-05-13] MEDS ORDERED: Sod Polystyrene Sulf 15 gm/60 ml Susp ONE (09:52)
[2018-05-13] MEDS ORDERED: (Novolog) Insulin Aspart, Recombinant 100 u/ml 10 ml vial ONE (09:54)
[2018-05-13] MEDS: (Novolog) Insulin Aspart, Recombinant 100 u/ml 10 ml vial SC SCH ×4 (09:57→21:27)
[2018-05-13] MEDS ORDERED: VILANTEROL IH SCH (10:00)
[2018-05-13] MEDS ORDERED: Pantoprazole 40 mg EC Tab PO SCH (10:00)
[2018-05-13] MEDS ORDERED: FLUTICASONE IH SCH (10:00)
[2018-05-13] MEDS: Multiple Vitamins Tab PO SCH (10:01)
[2018-05-13] MEDS ORDERED: Sodium Chloride Nasal 0.65% Soln (30ml) NAS PRN (10:59)
--- NOTE | 2018-05-13 11:53 | RAD ---
PROCEDURE: CHEST RADIOGRAPH, 1 VIEW HISTORY: Chest pain. Relevant interventional procedure(s): 03/20/2018 right thoracentesis with retrieval of 1.5 L of fluid. COMPARISON: 03/14/2018 FINDINGS: LUNGS: Improved aeration of the right lung. PLEURA: Substantial decrease in right pleural effusion. There may be a loculated component in the minor fissure. CARDIOVASCULAR: No radiographic findings to suggest acute or significant cardiovascular disease. OSSEOUS STRUCTURES: No significant abnormalities. VISUALIZED UPPER ABDOMEN: Normal. OTHER FINDINGS: None. IMPRESSION: Improved aeration of the right lung. Decrease in right pleural effusion.
--- NOTE | 2018-05-13 13:23 | CP.PCM.CON ---
History of Present Illness - History of Present Illness History of Present Illness: 42 year old female, with a past medical history of HTN, diabetes, and renal disease,gastroparesis who presents to the emergency department complaining of chest pain. Patient describes the pain as dull and achy and states it worsens somewhat with deep inspiration and movement. Patient was given 324mg of aspirin in ER. pt c/o epistaxis. multiple recent hospitalizations pt is on hd mwf, last hd yesterday labs noted, hgb 6.5. mg/dl K 5.5 hemolyzed cxr rt pleural effusion ROS: as above. 10 point system ROS obtained, negative except above PMH: ESRD DM2 DIABETIC NEPHROPATHY HTN CHF PSH- LEFT AV FISTULA Allergies: NKDA family hx: dm in mom and paternal grandmom. Soc hx: denies any etoh/tob/drugs Review of Systems - Review of Systems All systems: reviewed and no additional remarkable complaints except (as per hpi ) Past Patient History - Infectious Disease Hx of Infectious Diseases: None - Past Medical History & Family History Past Medical History?: Yes - Past Social History Smoking Status: Never Smoked - CARDIAC Hx Hypercholesterolemia: Yes Hx Hypertension: Yes - PULMONARY Hx Asthma: Yes Hx Chronic Obstructive Pulmonary Disease (COPD): Yes - NEUROLOGICAL HX Cerebrovascular Accident: Yes (01/2016, left sided weakness) - HEENT Hx HEENT Problems: Yes Other/Comment: Wears Eyeglasses - RENAL Date of Last Dialysis Treatment: 05/12/18 - ENDOCRINE/METABOLIC Hx Hyperthyroidism: No - HEMATOLOGICAL/ONCOLOGICAL Hx Anemia: Yes - INTEGUMENTARY Hx Dermatological Problems: No - MUSCULOSKELETAL/RHEUMATOLOGICAL Hx Falls: No - GASTROINTESTINAL Hx Gastritis: Yes - GENITOURINARY/GYNECOLOGICAL Hx Genitourinary Disorders: No - PSYCHIATRIC Hx Substance Use: No - SURGICAL HISTORY Hx Surgeries: Yes Hx Section: Yes Other/Comment: Insertion Of HD Cath on the R Internal Jugular; left forearm graft for dialysis. - ANESTHESIA Hx Anesthesia: Yes Hx Anesthesia Reactions: No Hx Malignant Hyperthermia: No Meds Allergies/Adverse Reactions: Allergies Allergy/AdvReac Type Severity Reaction Status Date / Time No Known Allergies Allergy Verified 01/18/18 08:51 - Medications Medications: Current Medications Albuterol (Ventolin Hfa 90 Mcg/Actuation (8 G)) 1 puff IH RQ6 PRN PRN Reason: Wheezing Albuterol/Ipratropium (Duoneb 3 Mg/0.5 Mg (3 Ml) Ud) 3 ml IH Q4 [facility] Last Admin: 05/13/18 06:21 Dose: 3 ml Amlodipine Besylate (Norvasc) 5 mg PO DAILY [facility] Last Admin: 05/13/18 10:04 Dose: 5 mg Aspirin (Ecotrin) 81 mg PO DAILY [facility] Last Admin: 05/13/18 10:03 Dose: 81 mg Cinacalcet (Sensipar) 30 mg PO DAILY [facility] Last Admin: 05/13/18 10:02 Dose: 30 mg Clopidogrel Bisulfate (Plavix) 75 mg PO DAILY [facility] Last Admin: 05/13/18 10:03 Dose: 75 mg Epoetin Kevin (Procrit) 5,000 unit IV MWF [facility] Ergocalciferol (Drisdol 50,000 Intl Units Cap) 1 cap PO QWK [facility] Famotidine (Pepcid) 20 mg PO DAILY [facility] Last Admin: 05/13/18 10:01 Dose: 20 mg Gabapentin (Neurontin) 100 mg PO DAILY [facility] Last Admin: 05/13/18 10:02 Dose: 100 mg Heparin Sodium (Porcine) (Heparin) 5,000 units SC Q12 [facility] Home Med (Fluticasone/Vilanterol [Breo Ellipta 100-25 Mcg Inh]) 1 each IH DAILY [facility] Insulin Aspart (Novolog) 0 unit SC [facility] PRN Reason: Protocol Last Admin: 05/13/18 11:52 Dose: 6 unit Insulin Glargine (Lantus) 10 unit SC HS [facility] Lactulose (Enulose) 10 gm PO DAILY PRN PRN Reason: Constipation Magnesium Hydroxide (Milk Of Magnesia) 30 ml PO HS [facility] Metoclopramide HCl (Reglan) 10 mg PO ACHS [facility] Last Admin: 05/13/18 11:41 Dose: 10 mg Metoprolol Tartrate (Lopressor) 50 mg PO BID [facility] Last Admin: 05/13/18 10:03 Dose: 50 mg Multivitamins (Hexavitamin) 1 tab PO DAILY [facility] Last Admin: 05/13/18 10:01 Dose: 1 tab Rosuvastatin Calcium (Crestor) 10 mg PO HS [facility] Sertraline HCl (Zoloft) 50 mg PO DAILY [facility] Last Admin: 05/13/18 10:02 Dose: 50 mg Sevelamer Carbonate (Renvela) 800 mg PO TIDCC [facility] Last Admin: 05/13/18 11:41 Dose: 800 mg Sodium Chloride ([place] Baby Saline 30 Ml) 0 ml GAIL Q2H PRN PRN Reason: Dry nasal passages Tramadol HCl (Ultram) 50 mg PO TID PRN PRN Reason: Pain, moderate (4-7) Physical Exam - Constitutional Appears: Non-toxic, No Acute Distress, Chronically Ill - Head Exam Head Exam: NORMAL INSPECTION, NORMOCEPHALIC - Eye Exam Eye Exam: Normal appearance, PERRL - ENT Exam ENT Exam: Mucous Membranes Moist, Normal Exam - Neck Exam Neck exam: Positive for: Normal Inspection (+epistaxis) - Respiratory Exam Respiratory Exam: Decreased Breath Sounds, NORMAL BREATHING PATTERN - Cardiovascular Exam Cardiovascular Exam: REGULAR RHYTHM, RRR - GI/Abdominal Exam GI & Abdominal Exam: Distended, Soft - Neurological Exam Neurological exam: Alert, Oriented x3 - Psychiatric Exam Psychiatric exam: Normal Affect, Normal Mood - Skin Skin Exam: Dry, Intact, Warm Results - Vital Signs Recent Vital Signs: Last Vital Signs Temp 98.2 F 05/13/18 11:54 Pulse 93 H 05/13/18 11:55 Resp 18 05/13/18 11:54 BP 144/77 05/13/18 11:54 Pulse Ox 96 05/13/18 11:54 - Labs Result Diagrams: 05/12/18 19:54 05/12/18 19:54 Labs: Laboratory Results - last 24 hr 05/12/18 05/12/18 05/12/18 19:37 19:54 19:54 WBC 11.1 H D RBC 2.44 L Hgb 6.8 L D Hct 21.3 L MCV 87.4 D MCH 27.8 MCHC 31.9 L RDW 16.3 H Plt Count 323 D MPV 9.6 Neut % (Auto) 73.1 Lymph % (Auto) 11.9 L Wheeler % (Auto) 12.9 H Eos % (Auto) 1.0 Baso % (Auto) 1.1 Neut # (Auto) 8.1 H Lymph # (Auto) 1.3 Wheeler # (Auto) 1.4 H Eos # (Auto) 0.1 Baso # (Auto) 0.1 PT INR APTT Sodium 136 Potassium 5.4 H Chloride 93 L Carbon Dioxide 32 H Anion Gap 16 BUN 37 H Creatinine 3.3 H Est GFR ( Amer) 19 Est GFR (Non-Af Amer) 15 POC Glucose (mg/dL) 281 H Random Glucose 256 H Calcium 8.0 L Total Bilirubin 2.0 H AST 80 H D ALT < 6 L D Alkaline Phosphatase 907 H Total Creatine Kinase CK-MB (Mass) Troponin I 0.0150 NT-Pro-B Natriuret Pep 99005 H Total Protein 9.8 H Albumin 4.0 Globulin 5.8 H Albumin/Globulin Ratio 0.7 L Blood Type Antibody Screen 05/12/18 05/13/18 05/13/18 20:00 00:55 06:10 WBC RBC Hgb Hct MCV MCH MCHC RDW Plt Count MPV Neut % (Auto) Lymph % (Auto) Wheeler % (Auto) Eos % (Auto) Baso % (Auto) Neut # (Auto) Lymph # (Auto) Wheeler # (Auto) Eos # (Auto) Baso # (Auto) PT 15.6 H INR 1.4 APTT 37 H Sodium Potassium Chloride Carbon Dioxide Anion Gap BUN Creatinine Est GFR ( Amer) Est GFR (Non-Af Amer) POC Glucose (mg/dL) Random Glucose Calcium Total Bilirubin AST ALT Alkaline Phosphatase Total Creatine Kinase 68 CK-MB (Mass) 0.96 Troponin I 0.0170 NT-Pro-B Natriuret Pep Total Protein Albumin Globulin Albumin/Globulin Ratio Blood Type O POSITIVE Antibody Screen Negative 05/13/18 05/13/18 08:11 11:43 WBC RBC Hgb Hct MCV MCH MCHC RDW Plt Count MPV Neut % (Auto) Lymph % (Auto) Wheeler % (Auto) Eos % (Auto) Baso % (Auto) Neut # (Auto) Lymph # (Auto) Wheeler # (Auto) Eos # (Auto) Baso # (Auto) PT INR APTT Sodium Potassium Chloride Carbon Dioxide Anion Gap BUN Creatinine Est GFR ( Amer) Est GFR (Non-Af Amer) POC Glucose (mg/dL) 160 H 324 H Random Glucose Calcium Total Bilirubin AST ALT Alkaline Phosphatase Total Creatine Kinase CK-MB (Mass) Troponin I NT-Pro-B Natriuret Pep Total Protein Albumin Globulin Albumin/Globulin Ratio Blood Type Antibody Screen Assessment & Plan (1) CHF (congestive heart failure) Status: Acute (2) Chest pain Status: Acute (3) ESRD (end stage renal disease) Status: Acute (4) Anemia Status: Acute - Assessment and Plan (Free Text) Assessment: hd tomorrow blood transfusion w/ hd tomorrow marcie w/ hd follow troponins fluid restriction
[2018-05-13 14:30] LABS: LIPASE 406 U/L (23-300)
[2018-05-13 14:38] LABS: CK-MB 1.76 ng/mL (0.0-3.38)
--- NOTE | 2018-05-13 15:30 | CP.PCM.PN ---
Subjective - Date & Time of Evaluation Date of Evaluation: 05/13/18 Time of Evaluation: 09:15 - Subjective Subjective: Medicine progress note for Dr. Kirkpatrick's service Patient is a 42 year old female with PMHx DM, HTN, ESRD on HD MWF for past 2 years, gastroparesis, COPD on 2L O2 at home who presents to the ER with complaint of chest pain and dyspnea. Patient was given aspirin 324mg by EMS en route to ER. Patient's last HD session was yesterday, patient reports full session. Patient was previously seen by vascular team in 01/2018 for fistula revision and patient states her AVF is functioning well. Patient states chest pain occurred yesterday and felt like a sharp sensation. She denies nausea with this chest pain. She states the pain comes and goes, slightly worse with food, not reproducible on palpation. Objective - Vital Signs/Intake and Output Vital Signs (last 24 hours): Temp Pulse Resp BP Pulse Ox 98.2 F 93 H 18 144/77 96 05/13/18 11:54 05/13/18 11:55 05/13/18 11:54 05/13/18 11:54 05/13/18 11:54 - Medications Medications: Current Medications Albuterol (Ventolin Hfa 90 Mcg/Actuation (8 G)) 1 puff IH RQ6 PRN PRN Reason: Wheezing Albuterol/Ipratropium (Duoneb 3 Mg/0.5 Mg (3 Ml) Ud) 3 ml IH Q4 [facility] Last Admin: 05/13/18 14:05 Dose: Not Given Amlodipine Besylate (Norvasc) 5 mg PO DAILY [facility] Last Admin: 05/13/18 10:04 Dose: 5 mg Aspirin (Ecotrin) 81 mg PO DAILY [facility] Last Admin: 05/13/18 10:03 Dose: 81 mg Cinacalcet (Sensipar) 30 mg PO DAILY [facility] Last Admin: 05/13/18 10:02 Dose: 30 mg Clopidogrel Bisulfate (Plavix) 75 mg PO DAILY [facility] Last Admin: 05/13/18 10:03 Dose: 75 mg Epoetin Kevin (Procrit) 5,000 unit IV MWF [facility] Ergocalciferol (Drisdol 50,000 Intl Units Cap) 1 cap PO QWK [facility] Famotidine (Pepcid) 20 mg PO DAILY [facility] Last Admin: 05/13/18 10:01 Dose: 20 mg Gabapentin (Neurontin) 100 mg PO DAILY [facility] Last Admin: 05/13/18 10:02 Dose: 100 mg Heparin Sodium (Porcine) (Heparin) 5,000 units SC Q12 [facility] Home Med (Fluticasone/Vilanterol [Breo Ellipta 100-25 Mcg Inh]) 1 each IH DAILY [facility] Insulin Aspart (Novolog) [address] [facility] PRN Reason: Protocol Last Admin: 05/13/18 11:52 Dose: 6 unit Insulin Glargine (Lantus) 10 unit SC HS [facility] Lactulose (Enulose) 10 gm PO DAILY PRN PRN Reason: Constipation Magnesium Hydroxide (Milk Of Magnesia) 30 ml PO HS [facility] Metoclopramide HCl (Reglan) 10 mg PO ACHS [facility] Last Admin: 05/13/18 11:41 Dose: 10 mg Metoprolol Tartrate (Lopressor) 50 mg PO BID [facility] Last Admin: 05/13/18 10:03 Dose: 50 mg Multivitamins (Hexavitamin) 1 tab PO DAILY [facility] Last Admin: 05/13/18 10:01 Dose: 1 tab Rosuvastatin Calcium (Crestor) 10 mg PO HS [facility] Sertraline HCl (Zoloft) 50 mg PO DAILY [facility] Last Admin: 05/13/18 10:02 Dose: 50 mg Sevelamer Carbonate (Renvela) 800 mg PO TIDCC [facility] Last Admin: 05/13/18 11:41 Dose: 800 mg Sodium Chloride ([place] Baby Saline 30 Ml) 0 ml GAIL Q2H PRN PRN Reason: Dry nasal passages Tramadol HCl (Ultram) 50 mg PO TID PRN PRN Reason: Pain, moderate (4-7) - Labs Labs: 05/12/18 19:54 05/12/18 19:54 PT 15.6 SECONDS (9.7-12.2) H 05/12/18 20:00 INR 1.4 05/12/18 20:00 APTT 37 SECONDS (21-34) H 05/12/18 20:00 - Constitutional Appears: Older Than Stated Age, Chronically Ill - Head Exam Head Exam: NORMOCEPHALIC - Eye Exam Eye Exam: EOMI - ENT Exam ENT Exam: Mucous Membranes Moist - Respiratory Exam Respiratory Exam: Rales (bibasilar) - Cardiovascular Exam Cardiovascular Exam: +S1, +S2 - GI/Abdominal Exam GI & Abdominal Exam: Soft, Tenderness (epigastric), Normal Bowel Sounds - Extremities Exam Extremities Exam: Normal Inspection. absent: Calf Tenderness - Neurological Exam Neurological Exam: Alert, Awake - Skin Skin Exam: Warm Assessment and Plan - Assessment and Plan (Free Text) Assessment: Chest pain, r/o ACS first two troponins negative, will continue to trend patient has risk factors: HTN, DM, ESRD on HD cardiology, Dr. Ansari, consulted- help appreciated asa 81mg daily Epigastric pain continue pepcid, reglan check lipase Anemia hemoglobin 6.8 on admission patient to be transfused 2unit PRBC with HD to avoid fluid overload Dyspnea patient had prior right thoracentesis on 03/20/18 with 1.5L fluid removed chest xray : substantial decrease in right pleural effusion, there may be a loculated component in minor right fissure. improved aeration of right lung. BNP elevated, 48,000 on admission. will check echo COPD continue O2 at 2L continue albuterol inhaler prn, duoneb q4 home med breo non-formulary, start advair as substitute ESRD on HD MWF Dr. Rogers consulted, help appreciated continue sensipar 30mg PO daily procrit 5000un IV MWF w/ HD ergocalciferol weekly renvela 800mg PO TIDCC DM continue home meds lantus 10u SC HS [facility] accuchecks Gastroparesis continue reglan 10mg PO ACHS [facility] continue crestor 10mg PO HS Anxiety continue home med zoloft 50mg daily Peripheral vascular disease continue plavix 75mg PO daily Prophylactic measure heparin 5000u SC Q12h [facility] on chart all medical management as per Dr. Kirkpatrick
--- NOTE | 2018-05-13 19:39 | CARD ---
APPROVED REPORT EKG Measurement Heart [id number] <Conclusion> Normal sinus rhythm Possible Left atrial enlargement ST & T wave abnormality, consider lateral ischemia Prolonged QT Abnormal ECG
[2018-05-13] MEDS ORDERED: Fluticasone-Salmeterol 250-50mcg Diskus INH SCH (20:00)
[2018-05-13] MEDS: (Lantus) Insulin Glargine, Recombinant SC SCH (21:47)
[2018-05-13] MEDS: Magnesium Hydroxide Susp 30 ml UD PO SCH ×2 (21:47→21:56)
--- NOTE | 2018-05-13 22:38 | CARD ---
APPROVED REPORT EXAM: Two-dimensional and M-mode echocardiogram with Doppler and color Doppler. Other Information Quality : GoodRhythm : NSR INDICATION LV Function: Chest Pain ESRD RISK FACTORS Hypertension Diabetes M-Mode DIMENSIONS RVDd2.46 (2.1-3.2cm)Left Atrium (MM)4.65 (2.5-4.0cm) IVSd1.21 (0.7-1.1cm)Aortic Root2.53 (2.2-3.7cm) LVDd3.89 (4.0-5.6cm)Aortic Cusp Exc.1.53 (1.5-2.0cm) PWd1.67 (0.7-1.1cm)FS (%) 30 % LVDs2.71 (2.0-3.8cm)LVEF (%)58 (>50%) Aortic Valve AoV Peak Mclzcbbc227.7cm/Domingo Peak GR.10mmHg Mitral Valve MV E Ednncuay859.1cm/sMV A Slwpqlar33.3cm/sE/A ratio1.5 TDI E/Lateral E'0.0E/Medial E'0.0 Tricuspid Valve TR Peak Nxgyrszh417go/sTR Peak Gr.[id number] LEFT VENTRICLE There is moderate asymmetric left ventricular hypertrophy. Left ventricle systolic function is normal. The Ejection Fraction is 55-60%. There is normal LV segmental wall motion. The left ventricular diastolic function is normal. No left ventricle thrombus noted on this study. RIGHT VENTRICLE The right ventricle is normal size. The right ventricular systolic function is normal. ATRIA The left atrium is moderately dilated. The right atrium is moderately dilated. There is a mass or thrombus suspected in the right atrium. The atrial septum is aneurysmal. AORTIC VALVE The aortic valve is mildly sclerotic. The aortic valve is trileaflet. No aortic regurgitation is present. There is no aortic valvular stenosis. There is no aortic valvular vegetation. MITRAL VALVE Mitral annular calcification is mild to moderate. There is no evidence of mitral valve prolapse. There is no mitral valve stenosis. Mitral regurgitation is mild. TRICUSPID VALVE The tricuspid valve is normal in structure. There is mild to moderate tricuspid regurgitation. Right ventricular systolic pressure is estimated at 30-40 mmHg. There is no pulmonary hypertension. PULMONIC VALVE The pulmonary valve is normal in structure. There is mild pulmonic valvular regurgitation. There is no pulmonic valvular stenosis. GREAT VESSELS The aortic root is normal in size. PERICARDIAL EFFUSION There is a small circumferential pericardial effusion. There is no pleural effusion. <Conclusion> There is moderate asymmetric left ventricular hypertrophy. Left ventricle systolic function is normal. The Ejection Fraction is 55-60%. The left ventricular diastolic function is normal. The right ventricle is normal size. The right ventricular systolic function is normal. The left atrium is moderately dilated. The right atrium is moderately dilated. There is a mass or thrombus suspected in the right atrium. The atrial septum is aneurysmal. Mitral regurgitation is mild. There is mild to moderate tricuspid regurgitation. There is mild pulmonic valvular regurgitation.
--- NOTE | 2018-05-13 23:54 | CP.PCM.CON ---
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 Stress test in am Past Patient History - Infectious Disease Hx of Infectious Diseases: None - Past Medical History & Family History Past Medical History?: Yes - Past Social History Smoking Status: Never Smoked - CARDIAC Hx Hypercholesterolemia: Yes Hx Hypertension: Yes - PULMONARY Hx Asthma: Yes Hx Chronic Obstructive Pulmonary Disease (COPD): Yes - NEUROLOGICAL HX Cerebrovascular Accident: Yes (01/2016, left sided weakness) - HEENT Hx HEENT Problems: Yes Other/Comment: Wears Eyeglasses - RENAL Date of Last Dialysis Treatment: 05/12/18 - ENDOCRINE/METABOLIC Hx Hyperthyroidism: No - HEMATOLOGICAL/ONCOLOGICAL Hx Anemia: Yes - INTEGUMENTARY Hx Dermatological Problems: No - MUSCULOSKELETAL/RHEUMATOLOGICAL Hx Falls: No - GASTROINTESTINAL Hx Gastritis: Yes - GENITOURINARY/GYNECOLOGICAL Hx Genitourinary Disorders: No - PSYCHIATRIC Hx Substance Use: No - SURGICAL HISTORY Hx Surgeries: Yes Hx Section: Yes Other/Comment: Insertion Of HD Cath on the R Internal Jugular; left forearm graft for dialysis. - ANESTHESIA Hx Anesthesia: Yes Hx Anesthesia Reactions: No Hx Malignant Hyperthermia: No Meds Allergies/Adverse Reactions: Allergies Allergy/AdvReac Type Severity Reaction Status Date / Time No Known Allergies Allergy Verified 01/18/18 08:51 - Medications Medications: Current Medications Albuterol (Ventolin Hfa 90 Mcg/Actuation (8 G)) 1 puff IH RQ6 PRN PRN Reason: Wheezing Albuterol/Ipratropium (Duoneb 3 Mg/0.5 Mg (3 Ml) Ud) 3 ml IH Q4 [facility] Last Admin: 05/13/18 21:15 Dose: Not Given Amlodipine Besylate (Norvasc) 5 mg PO DAILY [facility] Last Admin: 05/13/18 10:04 Dose: 5 mg Aspirin (Ecotrin) 81 mg PO DAILY [facility] Last Admin: 05/13/18 10:03 Dose: 81 mg Cinacalcet (Sensipar) 30 mg PO DAILY [facility] Last Admin: 05/13/18 10:02 Dose: 30 mg Clopidogrel Bisulfate (Plavix) 75 mg PO DAILY [facility] Last Admin: 05/13/18 10:03 Dose: 75 mg Epoetin Kevin ([facility]crit) [facility] Epoetin Kevin (Procrit) 2,000 u IV MWF [facility] Ergocalciferol (Drisdol 50,000 Intl Units Cap) 1 cap PO QWK [facility] Famotidine (Pepcid) 20 mg PO DAILY [facility] Last Admin: 05/13/18 10:01 Dose: 20 mg Gabapentin (Neurontin) 100 mg PO DAILY [facility] Last Admin: 05/13/18 10:02 Dose: 100 mg Heparin Sodium (Porcine) (Heparin) 5,000 units SC Q12 [facility] Last Admin: 05/13/18 21:47 Dose: 5,000 units Insulin Aspart (Novolog) 0 unit SC [facility] PRN Reason: Protocol Last Admin: 05/13/18 21:27 Dose: Not Given Insulin Glargine (Lantus) 10 unit SC [facility] Last Admin: 05/13/18 21:47 Dose: 10 units Lactulose (Enulose) 10 gm PO DAILY PRN PRN Reason: Constipation Magnesium Hydroxide (Milk Of Magnesia) 30 ml PO [facility] Last Admin: 05/13/18 21:56 Dose: Not Given Metoclopramide HCl (Reglan) 10 mg PO [facility] Last Admin: 05/13/18 21:46 Dose: 10 mg Metoprolol Tartrate (Lopressor) 50 mg PO BID [facility] Last Admin: 05/13/18 18:06 Dose: 50 mg Multivitamins (Hexavitamin) 1 tab PO DAILY [facility] Last Admin: 05/13/18 10:01 Dose: 1 tab Rosuvastatin Calcium (Crestor) 10 mg PO [facility] Last Admin: 05/13/18 21:47 Dose: 10 mg Fluticasone/Salmeterol (Advair Diskus 250/50) 1 puff INH RQ12 [facility] Sertraline HCl (Zoloft) 50 mg PO DAILY [facility] Last Admin: 05/13/18 10:02 Dose: 50 mg Sevelamer Carbonate (Renvela) 800 mg PO TIDCC [facility] Last Admin: 05/13/18 17:05 Dose: 800 mg Sodium Chloride ([place] Baby Saline 30 Ml) 0 ml GAIL Q2H PRN PRN Reason: Dry nasal passages Tramadol HCl (Ultram) 50 mg PO TID PRN PRN Reason: Pain, moderate (4-7) Last Admin: 05/13/18 21:49 Dose: 50 mg Results - Vital Signs Recent Vital Signs: Last Vital Signs Temp 98 F 05/13/18 15:00 Pulse 96 H 05/13/18 16:00 Resp 20 05/13/18 15:00 BP 143/86 05/13/18 15:00 Pulse Ox 96 05/13/18 15:00 - Labs Result Diagrams: 05/12/18 19:54 05/12/18 19:54 Labs: Laboratory Results - last 24 hr 05/13/18 05/13/18 05/13/18 00:55 06:10 08:11 POC Glucose (mg/dL) 160 H Total Creatine Kinase 68 CK-MB (Mass) 0.96 Troponin I 0.0170 Lipase Blood Type O POSITIVE Antibody Screen Negative 05/13/18 05/13/18 05/13/18 11:43 13:54 16:39 POC Glucose (mg/dL) 324 H 191 H Total Creatine Kinase 59 CK-MB (Mass) 1.76 Troponin I < 0.0120 Lipase 406 H Blood Type Antibody Screen 05/13/18 05/13/18 20:13 21:26 POC Glucose (mg/dL) 197 H Total Creatine Kinase 60 CK-MB (Mass) 1.70 Troponin I < 0.0120 Lipase Blood Type Antibody Screen
[2018-05-14] MEDS: Albuterol-Ipratrop 3 mg / 0.5 (3 ml) UD IH SCH ×6 (03:10→23:47)
[2018-05-14 06:40] LABS: BASO # 0.2 K/uL (0.0-0.2); BASO % 1.8 % (0.0-2.0); EOS # 0.2 K/uL (0.0-0.7); LYMPH # 1.2 K/uL (1.0-4.3); LYMPH % 12.3 % (20.0-40.0); MEAN CELL VOLUME 88.4 fL (81.0-99.0); MEAN CORPUSCULAR HEMOGLOBIN 29.1 pg (27.0-31.0); MEAN CORPUSCULAR HGB CONC 32.9 g/dL (33.0-37.0); MEAN PLATELET VOLUME 9.9 fL (7.2-11.7); MONO # 1.4 K/uL (0.0-0.8); MONO % 14.2 % (0.0-10.0); NEUT # 6.8 K/uL (1.8-7.0); NEUT % 69.7 % (50.0-75.0); RBC 2.42 Mil/uL (3.80-5.20); RED CELL DISTRIBUTION WIDTH 16.1 % (11.5-14.5); WHITE BLOOD COUNT 9.8 K/uL (4.8-10.8)
[2018-05-14 06:47] LABS: ALB/GLOB RATIO 0.7 (1.0-2.1); ALBUMIN 3.7 g/dL (3.5-5.0); ALT/SGPT < 6 U/L (9-52); AST/SGOT 43 U/L (14-36); BLOOD UREA NITROGEN 55 mg/dL (7-17); CALCIUM 7.9 mg/dl (8.6-10.4); GFR AFRICAN-AMERICAN 10; GFR NON-AFRICAN AMERICAN 8; HDL CHOLESTEROL 43 mg/dL (30-70)
[2018-05-14 06:58] LABS: LDL CHOLESTEROL 57 mg/dL (0-129)
[2018-05-14] MEDS: (Novolog) Insulin Aspart, Recombinant 100 u/ml 10 ml vial SC SCH ×4 (07:50→22:04)
--- NOTE | 2018-05-14 07:55 | CP.PCM.PN ---
Subjective - Date & Time of Evaluation Date of Evaluation: 05/14/18 Time of Evaluation: 09:20 - Subjective Subjective: PGY 3 Med Note- Dr. Kirkpatrick's service Patient seen and examined in no apparent acute distress. Patient states that she feels okay. She admits to some shortness of breath. Patient denies subject fevers or chills, nausea, vomiting at this time. Objective - Vital Signs/Intake and Output Vital Signs (last 24 hours): Temp Pulse Resp BP Pulse Ox 97.5 F L 93 H 20 147/85 95 05/14/18 07:15 05/14/18 07:15 05/14/18 07:15 05/14/18 07:15 05/14/18 07:15 Intake and Output: 05/14/18 05/14/18 06:59 18:59 Intake Total 240 Balance 240 - Medications Medications: Current Medications Albuterol (Ventolin Hfa 90 Mcg/Actuation (8 G)) 1 puff IH RQ6 PRN PRN Reason: Wheezing Albuterol/Ipratropium (Duoneb 3 Mg/0.5 Mg (3 Ml) Ud) 3 ml IH Q4 [facility] Last Admin: 05/14/18 07:19 Dose: 3 ml Amlodipine Besylate (Norvasc) 5 mg PO DAILY [facility] Last Admin: 05/13/18 10:04 Dose: 5 mg Aspirin (Ecotrin) 81 mg PO DAILY [facility] Last Admin: 05/13/18 10:03 Dose: 81 mg Cinacalcet (Sensipar) 30 mg PO DAILY [facility] Last Admin: 05/13/18 10:02 Dose: 30 mg Clopidogrel Bisulfate (Plavix) 75 mg PO DAILY [facility] Last Admin: 05/13/18 10:03 Dose: 75 mg Epoetin Kevin (Procrit) 3,000 unit IV MWF [facility] Epoetin Kevin (Procrit) 2,000 u IV MWF [facility] Ergocalciferol (Drisdol 50,000 Intl Units Cap) 1 cap PO QWK [facility] Famotidine (Pepcid) 20 mg PO DAILY [facility] Last Admin: 05/13/18 10:01 Dose: 20 mg Gabapentin (Neurontin) 100 mg PO DAILY [facility] Last Admin: 05/13/18 10:02 Dose: 100 mg Heparin Sodium (Porcine) (Heparin) 5,000 units SC Q12 [facility] Last Admin: 05/13/18 21:47 Dose: 5,000 units Insulin Aspart (Novolog) 0 unit SC [facility] PRN Reason: Protocol Last Admin: 05/14/18 07:50 Dose: Not Given Insulin Glargine (Lantus) [address] [facility] Last Admin: 05/13/18 21:47 Dose: 10 units Lactulose (Enulose) 10 gm PO DAILY PRN PRN Reason: Constipation Magnesium Hydroxide (Milk Of Magnesia) [address] [facility] Last Admin: 05/13/18 21:56 Dose: Not Given Metoclopramide HCl (Reglan) 10 mg PO [facility] Last Admin: 05/14/18 07:50 Dose: Not Given Metoprolol Tartrate (Lopressor) 50 mg PO BID [facility] Last Admin: 05/13/18 18:06 Dose: 50 mg Multivitamins (Hexavitamin) 1 tab PO DAILY [facility] Last Admin: 05/13/18 10:01 Dose: 1 tab Rosuvastatin Calcium (Crestor) [address] [facility] Last Admin: 05/13/18 21:47 Dose: 10 mg Fluticasone/Salmeterol (Advair Diskus 250/50) 1 puff INH RQ12 [facility] Sertraline HCl (Zoloft) 50 mg PO DAILY [facility] Last Admin: 05/13/18 10:02 Dose: 50 mg Sevelamer Carbonate (Renvela) 800 mg PO TIDCC [facility] Last Admin: 05/14/18 07:50 Dose: Not Given Sodium Chloride ([place] Baby Saline 30 Ml) 0 ml GAIL Q2H PRN PRN Reason: Dry nasal passages Tramadol HCl (Ultram) 50 mg PO TID PRN PRN Reason: Pain, moderate (4-7) Last Admin: 05/13/18 21:49 Dose: 50 mg - Labs Labs: 05/14/18 06:21 05/14/18 06:21 PT 15.6 SECONDS (9.7-12.2) H 05/12/18 20:00 INR 1.4 05/12/18 20:00 APTT 37 SECONDS (21-34) H 05/12/18 20:00 - Constitutional Appears: Non-toxic, No Acute Distress - Head Exam Head Exam: ATRAUMATIC - Eye Exam Eye Exam: EOMI, Normal appearance Pupil Exam: NORMAL ACCOMODATION - ENT Exam ENT Exam: Mucous Membranes Moist - Neck Exam Neck Exam: Full ROM - Respiratory Exam Respiratory Exam: NORMAL BREATHING PATTERN - Cardiovascular Exam Cardiovascular Exam: +S1, +S2 - GI/Abdominal Exam GI & Abdominal Exam: Soft, Tenderness (epigastric), Normal Bowel Sounds - Extremities Exam Extremities Exam: Normal Capillary Refill - Back Exam Back Exam: Full ROM - Neurological Exam Neurological Exam: Alert, Awake, Oriented x3 - Psychiatric Exam Psychiatric exam: Normal Affect, Normal Mood - Skin Skin Exam: Dry, Normal Color, Warm Assessment and Plan - Assessment and Plan (Free Text) Assessment: Chest pain, r/o ACS SUZANNE x3 negative Patient has risk factors: HTN, DM, ESRD on HD ASA 81mg daily, Lopressor 50 mg PO BID, Crestor 10 mg PO HS Patient to undergo stress test- Part 1 completed. Awaiting Part 2 and results. Epigastric pain Continue pepcid, reglan Lipase elevated Anemia Hgb stable Patient to be transfused 2 units of PRBC (with HD) to avoid fluid overload. Recheck CBC post transfusion. Contributing factors include chronic kidney disease etiology Dyspnea Afebrile- no leukocytosis Patient had prior right thoracentesis on 03/20/18 with 1.5L fluid removed chest xray : substantial decrease in right pleural effusion, there may be a loculated component in minor right fissure. improved aeration of right lung. BNP elevated, 48,000 on admission. Echo 55-60% EF. moderate asymmetric LVH, moderate dilation of atria b/l, mild mitral regurg, mild pulmonic valvular regurg Duonebs, advair O2 therapy PRN COPD Continue O2 at 2L as needed Continue albuterol inhaler prn, Duoneb q4 home med breo non-formulary, on advair as substitute ESRD on HD MWF Dr. Rogers consulted, help appreciated continue sensipar 30mg PO daily procrit 5000u IV MWF w/ HD ergocalciferol weekly renvela 800mg PO TIDCC HTN Management therapy Lopressor and Norvasc Some LVH changes noted on Echo Lifestyle dietary changes warranted Monitor DM Continue home meds lantus 10u SC HS Hgb A1c 9- Needs home insulin if patient is not already on therapy. ISS accuchecks Gastroparesis Continue reglan 10mg PO ACHS HLD Continue crestor 10mg PO HS Anxiety Continue home med zoloft 50mg daily Peripheral vascular disease Continue plavix 75mg PO daily Prophylactic measure Heparin 5000u SC Q12h POLST on chart Discussed with attending. All medical management as per Dr. Kirkpatrick
[2018-05-14] MEDS ORDERED: Aminophylline 25 mg/ml Inj ONE (08:06)
[2018-05-14] MEDS ORDERED: EPOETIN ALFA 4,000 UNIT/ML ML Dialysis IV SCH (09:00)
[2018-05-14] MEDS ORDERED: Epoetin Alfa Dialysis 2000 U/ML Inj IV SCH (09:00)
[2018-05-14] MEDS ORDERED: Epoetin Alfa Dialysis 3000 UNIT/ML Inj IV SCH (09:00)
--- NOTE | 2018-05-14 09:57 | HP ---
HISTORY OF PRESENT ILLNESS: The patient was admitted to the hospital with shortness of breath, weakness, fatigue, tiredness, chest pain, COPD, renal failure, diabetes, hypertension, The patient is on home oxygen. PHYSICAL EXAMINATION: GENERAL: The patient is awake, alert, and oriented. VITAL SIGNS: Temperature 98, pulse 90. HEENT: Within normal limits. NECK: Supple. CHEST: Symmetrical. HEART: Regular. ABDOMEN: Soft. EXTREMITIES: No edema. IMPRESSION: Patient suffers from , CHF, anemia. The patient is to bed rest, supportive care, ____ evaluation. Cydney Kirkpatrick MD
[2018-05-14] MEDS: Multiple Vitamins Tab PO SCH (10:40)
[2018-05-14] MEDS ORDERED: Epoetin Alfa 10,000 unit/ml Dialysis IV SCH ×2 (14:24→15:30)
--- NOTE | 2018-05-14 14:28 | CP.PCM.PN ---
Subjective - Date & Time of Evaluation Date of Evaluation: 05/14/18 Time of Evaluation: 14:25 - Subjective Subjective: seen at dialysis to UF 3000ml no more CPs for EST soon BP controlled severely anemic no new complaints Objective - Vital Signs/Intake and Output Vital Signs (last 24 hours): Temp Pulse Resp BP Pulse Ox 97.5 F L 93 H 20 147/85 95 05/14/18 07:15 05/14/18 07:15 05/14/18 07:15 05/14/18 07:15 05/14/18 07:15 Intake and Output: 05/14/18 05/14/18 06:59 18:59 Intake Total 240 300 Balance 240 300 - Medications Medications: Current Medications Albuterol (Ventolin Hfa 90 Mcg/Actuation (8 G)) 1 puff IH RQ6 PRN PRN Reason: Wheezing Albuterol/Ipratropium (Duoneb 3 Mg/0.5 Mg (3 Ml) Ud) 3 ml IH Q4 [facility] Last Admin: 05/14/18 11:14 Dose: 3 ml Amlodipine Besylate (Norvasc) 5 mg PO DAILY [facility] Last Admin: 05/14/18 10:41 Dose: 5 mg Aspirin (Aspirin Chewable) 81 mg PO DAILY [facility] Last Admin: 05/14/18 10:41 Dose: 81 mg Cinacalcet (Sensipar) 30 mg PO DAILY [facility] Last Admin: 05/14/18 10:45 Dose: 30 mg Clopidogrel Bisulfate (Plavix) 75 mg PO DAILY [facility] Last Admin: 05/14/18 10:41 Dose: 75 mg Epoetin Kevin (Procrit) 10,000 u IV MWF [facility] Ergocalciferol (Drisdol 50,000 Intl Units Cap) 1 cap PO QWK [facility] Famotidine (Pepcid) 20 mg PO DAILY [facility] Last Admin: 05/14/18 10:41 Dose: 20 mg Gabapentin (Neurontin) 100 mg PO DAILY [facility] Last Admin: 05/14/18 10:40 Dose: 100 mg Heparin Sodium (Porcine) (Heparin) 5,000 units SC Q12 [facility] Last Admin: 05/14/18 10:10 Dose: Not Given Insulin Aspart (Novolog) 0 unit SC [facility] PRN Reason: Protocol Last Admin: 05/14/18 13:32 Dose: Not Given Insulin Glargine (Lantus) 10 unit SC [facility] Last Admin: 05/13/18 21:47 Dose: 10 units Lactulose (Enulose) 10 gm PO DAILY PRN PRN Reason: Constipation Magnesium Hydroxide (Milk Of Magnesia) 30 ml PO HS [facility] Last Admin: 05/13/18 21:56 Dose: Not Given Metoclopramide HCl (Reglan) 10 mg PO ACHS [facility] Last Admin: 05/14/18 13:32 Dose: Not Given Metoprolol Tartrate (Lopressor) 50 mg PO BID [facility] Last Admin: 05/14/18 10:41 Dose: 50 mg Multivitamins (Hexavitamin) 1 tab PO DAILY [facility] Last Admin: 05/14/18 10:40 Dose: 1 tab Rosuvastatin Calcium (Crestor) 10 mg PO [facility] Last Admin: 05/13/18 21:47 Dose: 10 mg Fluticasone/Salmeterol (Advair Diskus 250/50) 1 puff INH RQ12 [facility] Sertraline HCl (Zoloft) 50 mg PO DAILY [facility] Last Admin: 05/14/18 10:40 Dose: 50 mg Sevelamer Carbonate (Renvela) 800 mg PO TIDCC [facility] Last Admin: 05/14/18 14:24 Dose: Not Given Sodium Chloride ([place] Baby Saline 30 Ml) 0 ml GAIL Q2H PRN PRN Reason: Dry nasal passages Tramadol HCl (Ultram) 50 mg PO TID PRN PRN Reason: Pain, moderate (4-7) Last Admin: 05/13/18 21:49 Dose: 50 mg - Labs Labs: 05/14/18 06:21 05/14/18 06:21 PT 15.6 SECONDS (9.7-12.2) H 05/12/18 20:00 INR 1.4 05/12/18 20:00 APTT 37 SECONDS (21-34) H 05/12/18 20:00 - Constitutional Appears: Non-toxic, No Acute Distress, Chronically Ill - Head Exam Head Exam: ATRAUMATIC, NORMAL INSPECTION - Eye Exam Eye Exam: EOMI, Normal appearance - Neck Exam Neck Exam: Normal Inspection. absent: Tenderness - Respiratory Exam Respiratory Exam: Clear to Ausculation Bilateral, NORMAL BREATHING PATTERN - Cardiovascular Exam Cardiovascular Exam: REGULAR RHYTHM, +S1 - GI/Abdominal Exam GI & Abdominal Exam: Soft. absent: Tenderness - Extremities Exam Extremities Exam: Normal Inspection. absent: Tenderness - Neurological Exam Neurological Exam: Alert, CN II-XII Intact - Skin Skin Exam: Dry, Warm Assessment and Plan (1) CHF (congestive heart failure) Status: Acute (2) ESRD (end stage renal disease) Status: Acute (3) Anemia Status: Acute - Assessment and Plan (Free Text) Plan: check iron stores aggressive HD with UF goal 3000ml q HD EST monitor HTN
--- NOTE | 2018-05-14 16:10 | CARD ---
APPROVED REPORT Protocol: LEXISCAN Test Type: LEXISCAN STRESS Test Indications: CHEST PAIN Target HR: 178 bpm Resting ECG: NSR Resting Heart Rate: 97 bpm Resting Blood Pressure: 134/80mmHg submaximum (85%): 151 bpm TEST SUMMARY [id number]:01..1.098/.0. PREINFSNHYPERV.08:390.00..031409/80.0. INFUSIONDOSE 100:300.00..098/.0. RDOBEDDLQ47:360.00..[id number]/80.0. PROCEDURE Pharmacologic stress testing was performed using 0.4mg per 5ml of regadenoson given intravenously over 7-10 seconds. Reversal agent aminophyline 100 mg, given intravenously for Headache. POST EXERCISE Reason for Termination: Protocol Completed Target HR: No Max HR: 98 bpm 56% of Maximum Predicted HR: 178 bpm Exercise duration: 00:30 min:sec, 0 Stage Exercise capacity: 1.0METs Max Blood Pressure: 136/80mmHg Blood Pressure response to exercise: normal resting BP - appropriate response Heart Rate response to exercise: appropriate Chest Pain: No, none Angina index: 0 Arrhythmia: No, none ST Change: No, none Deviation: 0 mm INTERPRETATION Stress EKG Conclusion: NEGATIVE LEXISCAN STRESS TEST NORMAL BP RESPONSE TO LEXISCAN NUCLEAR STUDIES TO BE READ SEPARATELY EXAM: Myocardial Perfusion STRESS/REST Imaging Protocol The imaging protocol used to acquire images was Stress Tc-99m/rest Tc-99m 1 day Rest Spect myocardial perfusion imaging was performed in supine position 45 minutes following the injection of 33.0 mCi of Tc-99 Myoview. Gated Stress Spect was performed 45 minutes after intravenous 13.1 mCi Tc-99 Myoview injection. The images were gated to evaluate regional wall motion and calculate ventricular ejection fraction.Images were reconstructed using backfilter projection method in short horizontal and verticle long axis. Spect slices were generated. RESTING DATA EDV82.76jpBF2.10L/min ESV25.00mlMyocardial Lnua392.00g Av. Heart Rate89.00bpm EF70.00% STRESS DATA EDV85.27zgZW2.60L/min ESV29.00mlMyocardial Iqbc636.00g EF66.00% Regional WT score at stress:1.00 Regional WM score at stress:0.00 Summed WT score at stress:18.00 Av. Heart Rate99.00bpmSummed WM score at stress:3.00 LV Perf. Quant 17 Seg. SSS2.00 17 Seg. SRS4.00 17 Seg. SDS0.00 Stress Defect Extent (% LAD)0.00Rest Defect Extent (% LAD)0.00Rev. Defect Extent (% LAD)0.00 Stress Defect Extent (% LCX)17.50Rest Defect Extent (% LCX)43.80Rev. Defect Extent (% LCX)0.00 Stress Defect Extent (% RCA)0.00Rest Defect Extent (% RCA)0.00Rev. Defect Extent (% RCA)0.00 Stress Defect Extent (% SYBIL)3.00Rest Defect Extent (% SYBIL)7.60Rev. Defect Extent (% SYBIL)0.00 Other Information Quality:Good IMPRESSION Normal Myocardial Perfusion exercise stress study Left Ventricle LV Function:Left ventricle systolic function is normal. The Ejection Fraction is >55%. Conclusion 1. Normal Lexiscan nuclear stress test. No stress induce ischemia. Normal EF
[2018-05-14 19:46] VITALS: RESP 20
[2018-05-14] MEDS: (Lantus) Insulin Glargine, Recombinant SC SCH (21:45)
[2018-05-14] MEDS: Magnesium Hydroxide Susp 30 ml UD PO SCH (22:03)
--- NOTE | 2018-05-14 22:34 | CARD ---
APPROVED REPORT EKG Measurement Heart [id number] [place] [id number] <Conclusion> Normal sinus rhythm Rightward axis Nonspecific ST and T wave abnormality Prolonged QT Abnormal ECG
--- NOTE | 2018-05-14 23:06 | CP.PCM.PN ---
Subjective - Date & Time of Evaluation Date of Evaluation: 05/14/18 Time of Evaluation: 17:10 - Subjective Subjective: Patient seen and evaluated Normal stress test ECHO abnormality in RA is scndary to interatrial sepatl aneurysm (Not a clot) Medical management Objective - Vital Signs/Intake and Output Vital Signs (last 24 hours): Temp Pulse Resp BP Pulse Ox 99.0 F 97 H 20 156/88 H 95 05/14/18 19:30 05/14/18 19:30 05/14/18 19:30 05/14/18 19:30 05/14/18 19:30 Intake and Output: 05/14/18 05/15/18 18:59 06:59 Intake Total 905 240 Balance 905 240 - Medications Medications: Current Medications Albuterol (Ventolin Hfa 90 Mcg/Actuation (8 G)) 1 puff IH RQ6 PRN PRN Reason: Wheezing Albuterol/Ipratropium (Duoneb 3 Mg/0.5 Mg (3 Ml) Ud) 3 ml IH Q4 [facility] Last Admin: 05/14/18 20:50 Dose: Not Given Amlodipine Besylate (Norvasc) 5 mg PO DAILY [facility] Last Admin: 05/14/18 10:41 Dose: 5 mg Aspirin (Aspirin Chewable) 81 mg PO DAILY [facility] Last Admin: 05/14/18 10:41 Dose: 81 mg Cinacalcet (Sensipar) 30 mg PO DAILY [facility] Last Admin: 05/14/18 10:45 Dose: 30 mg Clopidogrel Bisulfate (Plavix) 75 mg PO DAILY [facility] Last Admin: 05/14/18 10:41 Dose: 75 mg Epoetin Kevin (Procrit) 10,000 unit IV MWF [facility] Last Admin: 05/14/18 15:32 Dose: 10,000 unit Ergocalciferol (Drisdol 50,000 Intl Units Cap) 1 cap PO QWK [facility] Famotidine (Pepcid) 20 mg PO DAILY [facility] Last Admin: 05/14/18 10:41 Dose: 20 mg Gabapentin (Neurontin) 100 mg PO DAILY [facility] Last Admin: 05/14/18 10:40 Dose: 100 mg Heparin Sodium (Porcine) (Heparin) 5,000 units SC Q12 [facility] Last Admin: 05/14/18 21:45 Dose: 5,000 units Insulin Aspart (Novolog) 0 unit SC ACHS [facility] PRN Reason: Protocol Last Admin: 05/14/18 22:04 Dose: Not Given Insulin Glargine (Lantus) [address] [facility] Last Admin: 05/14/18 21:45 Dose: 10 units Lactulose (Enulose) 10 gm PO DAILY PRN PRN Reason: Constipation Magnesium Hydroxide (Milk Of Magnesia) [address] [facility] Last Admin: 05/14/18 22:03 Dose: Not Given Metoclopramide HCl (Reglan) 10 mg PO [facility] Last Admin: 05/14/18 22:04 Dose: Not Given Metoprolol Tartrate (Lopressor) 50 mg PO BID [facility] Last Admin: 05/14/18 18:43 Dose: 50 mg Multivitamins (Hexavitamin) 1 tab PO DAILY [facility] Last Admin: 05/14/18 10:40 Dose: 1 tab Rosuvastatin Calcium (Crestor) [address] [facility] Last Admin: 05/14/18 21:44 Dose: 10 mg Fluticasone/Salmeterol (Advair Diskus 250/50) 1 puff INH RQ12 [facility] Sertraline HCl (Zoloft) 50 mg PO DAILY [facility] Last Admin: 05/14/18 10:40 Dose: 50 mg Sevelamer Carbonate (Renvela) 800 mg PO TIDCC [facility] Last Admin: 05/14/18 18:42 Dose: 800 mg Sodium Chloride ([place] Baby Saline 30 Ml) 0 ml GAIL Q2H PRN PRN Reason: Dry nasal passages Tramadol HCl (Ultram) 50 mg PO TID PRN PRN Reason: Pain, moderate (4-7) Last Admin: 05/13/18 21:49 Dose: 50 mg - Labs Labs: 05/14/18 06:21 05/14/18 06:21 PT 15.6 SECONDS (9.7-12.2) H 05/12/18 20:00 INR 1.4 05/12/18 20:00 APTT 37 SECONDS (21-34) H 05/12/18 20:00
[2018-05-15] MEDS: Albuterol-Ipratrop 3 mg / 0.5 (3 ml) UD IH SCH ×3 (03:25→11:14)
[2018-05-15 06:44] LABS: BASO # 0.2 K/uL (0.0-0.2); BASO % 1.7 % (0.0-2.0); EOS # 0.2 K/uL (0.0-0.7); EOS % 2.1 % (0.0-4.0); HEMOGLOBIN 8.5 g/dL (11.0-16.0); LYMPH # 1.2 K/uL (1.0-4.3); LYMPH % 12.1 % (20.0-40.0); MEAN CELL VOLUME 87.7 fL (81.0-99.0); MEAN CORPUSCULAR HEMOGLOBIN 29.2 pg (27.0-31.0); MEAN CORPUSCULAR HGB CONC 33.2 g/dL (33.0-37.0); MEAN PLATELET VOLUME 9.7 fL (7.2-11.7); MONO # 1.3 K/uL (0.0-0.8); MONO % 12.8 % (0.0-10.0); NEUT # 7.2 K/uL (1.8-7.0); NEUT % 71.3 % (50.0-75.0); RBC 2.91 Mil/uL (3.80-5.20); WHITE BLOOD COUNT 10.1 K/uL (4.8-10.8)
[2018-05-15 07:25] LABS: ALB/GLOB RATIO 0.6 (1.0-2.1); ALBUMIN 3.7 g/dL (3.5-5.0); ALT/SGPT < 6 U/L (9-52); AST/SGOT 46 U/L (14-36); BLOOD UREA NITROGEN 32 mg/dL (7-17); CALCIUM 8.5 mg/dl (8.6-10.4); GFR AFRICAN-AMERICAN 15; GFR NON-AFRICAN AMERICAN 13
--- NOTE | 2018-05-15 07:47 | CP.PCM.PN ---
Subjective - Date & Time of Evaluation Date of Evaluation: 05/15/18 Time of Evaluation: 07:00 - Subjective Subjective: PGY 3 Med Note- Dr. Kirkpatrick's service Patient seen and examined in no apparent acute distress. Patient states that she feels okay. She admits to some shortness of breath and mild chest pain. Was asking for pain medication. Patient denies subject fevers or chills, nausea, vomiting at this time. She is tolerating diet, has not had a BM since Saturday. Objective - Vital Signs/Intake and Output Vital Signs (last 24 hours): Temp Pulse Resp BP Pulse Ox 98.2 F 92 H 20 153/70 H 96 05/14/18 23:40 05/15/18 04:55 05/14/18 23:40 05/14/18 23:40 05/14/18 23:40 Intake and Output: 05/15/18 05/15/18 06:59 18:59 Intake Total 240 Balance 240 - Medications Medications: Current Medications Albuterol (Ventolin Hfa 90 Mcg/Actuation (8 G)) 1 puff IH RQ6 PRN PRN Reason: Wheezing Albuterol/Ipratropium (Duoneb 3 Mg/0.5 Mg (3 Ml) Ud) 3 ml IH Q4 [facility] Last Admin: 05/15/18 07:20 Dose: 3 ml Amlodipine Besylate (Norvasc) 5 mg PO DAILY [facility] Last Admin: 05/14/18 10:41 Dose: 5 mg Aspirin (Aspirin Chewable) 81 mg PO DAILY [facility] Last Admin: 05/14/18 10:41 Dose: 81 mg Cinacalcet (Sensipar) 30 mg PO DAILY [facility] Last Admin: 05/14/18 10:45 Dose: 30 mg Clopidogrel Bisulfate (Plavix) 75 mg PO DAILY [facility] Last Admin: 05/14/18 10:41 Dose: 75 mg Epoetin Kevin (Procrit) 10,000 unit IV MWF [facility] Last Admin: 05/14/18 15:32 Dose: 10,000 unit Ergocalciferol (Drisdol 50,000 Intl Units Cap) 1 cap PO QWK [facility] Famotidine (Pepcid) 20 mg PO DAILY [facility] Last Admin: 05/14/18 10:41 Dose: 20 mg Gabapentin (Neurontin) 100 mg PO DAILY [facility] Last Admin: 05/14/18 10:40 Dose: 100 mg Heparin Sodium (Porcine) (Heparin) 5,000 units SC Q12 [facility] Last Admin: 05/14/18 21:45 Dose: 5,000 units Insulin Aspart (Novolog) 0 unit SC [facility] PRN Reason: Protocol Last Admin: 05/14/18 22:04 Dose: Not Given Insulin Glargine (Lantus) 10 unit SC [facility] Last Admin: 05/14/18 21:45 Dose: 10 units Lactulose (Enulose) 10 gm PO DAILY PRN PRN Reason: Constipation Magnesium Hydroxide (Milk Of Magnesia) 30 ml PO [facility] Last Admin: 05/14/18 22:03 Dose: Not Given Metoclopramide HCl (Reglan) 10 mg PO [facility] Last Admin: 05/15/18 07:16 Dose: 10 mg Metoprolol Tartrate (Lopressor) 50 mg PO BID [facility] Last Admin: 05/14/18 18:43 Dose: 50 mg Multivitamins (Hexavitamin) 1 tab PO DAILY [facility] Last Admin: 05/14/18 10:40 Dose: 1 tab Rosuvastatin Calcium (Crestor) 10 mg PO [facility] Last Admin: 05/14/18 21:44 Dose: 10 mg Fluticasone/Salmeterol (Advair Diskus 250/50) 1 puff INH RQ12 [facility] Sertraline HCl (Zoloft) 50 mg PO DAILY [facility] Last Admin: 05/14/18 10:40 Dose: 50 mg Sevelamer Carbonate (Renvela) 800 mg PO TIDCC [facility] Last Admin: 05/14/18 18:42 Dose: 800 mg Sodium Chloride ([place] Baby Saline 30 Ml) 0 ml GAIL Q2H PRN PRN Reason: Dry nasal passages Tramadol HCl (Ultram) 50 mg PO TID PRN PRN Reason: Pain, moderate (4-7) Last Admin: 05/15/18 02:21 Dose: 50 mg - Labs Labs: 05/15/18 06:34 05/15/18 06:34 PT 15.6 SECONDS (9.7-12.2) H 05/12/18 20:00 INR 1.4 05/12/18 20:00 APTT 37 SECONDS (21-34) H 05/12/18 20:00 - Constitutional Appears: Non-toxic, No Acute Distress - Head Exam Head Exam: NORMAL INSPECTION - Eye Exam Eye Exam: EOMI - ENT Exam ENT Exam: Mucous Membranes Moist - Neck Exam Neck Exam: Full ROM - Respiratory Exam Respiratory Exam: Clear to Ausculation Bilateral, NORMAL BREATHING PATTERN. absent: Respiratory Distress - Cardiovascular Exam Cardiovascular Exam: REGULAR RHYTHM, +S1, +S2 - GI/Abdominal Exam GI & Abdominal Exam: Soft, Tenderness, Normal Bowel Sounds. absent: Distended, Firm, Guarding - Extremities Exam Extremities Exam: Normal Inspection - Back Exam Back Exam: NORMAL INSPECTION - Neurological Exam Neurological Exam: Alert, Awake, CN II-XII Intact, Normal Gait, Oriented x3 Neuro motor strength exam: Left Upper Extremity: 5, Right Upper Extremity: 5, Left Lower Extremity: 5, Right Lower Extremity: 5 - Psychiatric Exam Psychiatric exam: Normal Affect, Normal Mood Assessment and Plan - Assessment and Plan (Free Text) Assessment: Chest pain, r/o ACS SUZANNE x3 negative Patient has risk factors: HTN, DM, ESRD on HD ASA 81mg daily, Lopressor 50 mg PO BID, Crestor 10 mg PO HS Normal stress test 05/14 Epigastric pain Continue pepcid, reglan Lipase elevated Anemia Hgb 8.5 Was given 2 U PRBC on 05/14 Contributing factors include chronic kidney disease etiology Dyspnea Afebrile- no leukocytosis Patient had prior right thoracentesis on 03/20/18 with 1.5L fluid removed chest xray : substantial decrease in right pleural effusion, there may be a loculated component in minor right fissure. improved aeration of right lung. BNP elevated, 48,000 on admission. Echo 55-60% EF. moderate asymmetric LVH, moderate dilation of atria b/l, mild mitral regurg, mild pulmonic valvular regurg Duonebs, advair O2 therapy PRN via NC COPD Continue O2 at 2L as needed Continue albuterol inhaler prn, Duoneb q4 Home med breo non-formulary, on advair as substitute ESRD on HD MWF Dr. Rogers consulted, help appreciated Sensipar 30mg PO daily Procrit 5000u IV MWF w/ HD Renvela 800mg PO TIDCC Ergocalciferol 1 cap PO weekly (next dose 05/19) HTN Management therapy Norvasc 5mg PO daily Lopressor 50mg PO BID Some LVH changes noted on Echo Lifestyle dietary changes warranted Monitor DM Lantus 10u SC HS Hgb A1c 9- Needs home insulin if patient is not already on therapy. ISS accuchecks Gabapentin 100mg PO daily Constipation Milk of Magnesia 30ml PO HS Lactulose 10gm PO daily Gastroparesis Reglan 10mg PO ACHS HLD Crestor 10mg PO HS Anxiety Zoloft 50mg PO daily Peripheral vascular disease Plavix 75mg PO daily Aspirin 81mg PO daily Prophylactic measure Pepcid 20mg PO daily Heparin 5000u SC Q12 hours Multivitamin Dispo -> pending PT eval for return to [facility] Patient is stable for discharge back to [facility]. Patient is to follow up with her primary care within one week of discharge. She is to resume all of her home medications and also continue dialysis on her normal days. Patient is also to follow up with Dr. Ansari, cardiology, and Dr. Rogers, nephrology, within 1-2 weeks of discharge. All instructions explained to the patient. She is to return to the ER if symptoms resume. Med rec completed. All orders and management per Dr. Kirkpatrick. Analilia Torres DO PGY3
[2018-05-15] MEDS ORDERED: Potassium Chloride 20 mEq ER Tab PO STA (08:29)
[2018-05-15] MEDS: (Novolog) Insulin Aspart, Recombinant 100 u/ml 10 ml vial SC SCH ×2 (08:30→12:28)
[2018-05-15] MEDS: Multiple Vitamins Tab PO SCH (10:16)
--- NOTE | 2018-05-15 10:31 | CP.PCM.PN ---
Subjective - Date & Time of Evaluation Date of Evaluation: 05/15/18 Time of Evaluation: 10:29 - Subjective Subjective: stable dialysis 05/14 previously has epistaxis- ? etiology of anemia BP mildly elevated ferritin elevated- no IV Fe no new complaint Objective - Vital Signs/Intake and Output Vital Signs (last 24 hours): Temp Pulse Resp BP Pulse Ox 98.5 F 99 H 20 157/86 H 97 05/15/18 07:30 05/15/18 10:15 05/15/18 07:30 05/15/18 10:15 05/15/18 07:30 Intake and Output: 05/15/18 05/15/18 06:59 18:59 Intake Total 240 Balance 240 - Medications Medications: Current Medications Albuterol (Ventolin Hfa 90 Mcg/Actuation (8 G)) 1 puff IH RQ6 PRN PRN Reason: Wheezing Albuterol/Ipratropium (Duoneb 3 Mg/0.5 Mg (3 Ml) Ud) 3 ml IH Q4 [facility] Last Admin: 05/15/18 07:20 Dose: 3 ml Amlodipine Besylate (Norvasc) 5 mg PO DAILY [facility] Last Admin: 05/15/18 10:16 Dose: 5 mg Aspirin (Aspirin Chewable) 81 mg PO DAILY [facility] Last Admin: 05/15/18 10:16 Dose: 81 mg Cinacalcet (Sensipar) 30 mg PO DAILY [facility] Last Admin: 05/15/18 10:16 Dose: 30 mg Clopidogrel Bisulfate (Plavix) 75 mg PO DAILY [facility] Last Admin: 05/15/18 10:16 Dose: 75 mg Epoetin Kevin (Procrit) 10,000 unit IV MWF [facility] Last Admin: 05/14/18 15:32 Dose: 10,000 unit Ergocalciferol (Drisdol 50,000 Intl Units Cap) 1 cap PO QWK [facility] Famotidine (Pepcid) 20 mg PO DAILY [facility] Last Admin: 05/15/18 10:16 Dose: 20 mg Gabapentin (Neurontin) 100 mg PO DAILY [facility] Last Admin: 05/15/18 10:16 Dose: 100 mg Heparin Sodium (Porcine) (Heparin) 5,000 units SC Q12 [facility] Last Admin: 05/15/18 10:17 Dose: 5,000 units Insulin Aspart (Novolog) 0 unit SC ACHS [facility] PRN Reason: Protocol Last Admin: 05/14/18 22:04 Dose: Not Given Insulin Glargine (Lantus) 10 unit SC [facility] Last Admin: 05/14/18 21:45 Dose: 10 units Lactulose (Enulose) 10 gm PO DAILY PRN PRN Reason: Constipation Magnesium Hydroxide (Milk Of Magnesia) 30 ml PO [facility] Last Admin: 05/14/18 22:03 Dose: Not Given Metoclopramide HCl (Reglan) 10 mg PO [facility] Last Admin: 05/15/18 07:16 Dose: 10 mg Metoprolol Tartrate (Lopressor) 50 mg PO BID [facility] Last Admin: 05/15/18 10:16 Dose: 50 mg Multivitamins (Hexavitamin) 1 tab PO DAILY [facility] Last Admin: 05/15/18 10:16 Dose: 1 tab Rosuvastatin Calcium (Crestor) 10 mg PO [facility] Last Admin: 05/14/18 21:44 Dose: 10 mg Fluticasone/Salmeterol (Advair Diskus 250/50) 1 puff INH RQ12 [facility] Sertraline HCl (Zoloft) 50 mg PO DAILY [facility] Last Admin: 05/15/18 10:16 Dose: 50 mg Sevelamer Carbonate (Renvela) 800 mg PO TIDCC [facility] Last Admin: 05/15/18 08:26 Dose: 800 mg Sodium Chloride ([place] Baby Saline 30 Ml) 0 ml GAIL Q2H PRN PRN Reason: Dry nasal passages Tramadol HCl (Ultram) 50 mg PO TID PRN PRN Reason: Pain, moderate (4-7) Last Admin: 05/15/18 10:17 Dose: 50 mg - Labs Labs: 05/15/18 06:34 05/15/18 06:34 PT 15.6 SECONDS (9.7-12.2) H 05/12/18 20:00 INR 1.4 05/12/18 20:00 APTT 37 SECONDS (21-34) H 05/12/18 20:00 - Constitutional Appears: No Acute Distress, Chronically Ill - Head Exam Head Exam: ATRAUMATIC, NORMAL INSPECTION - Eye Exam Eye Exam: EOMI, Normal appearance - Neck Exam Neck Exam: Normal Inspection. absent: Tenderness - Respiratory Exam Respiratory Exam: Clear to Ausculation Bilateral, NORMAL BREATHING PATTERN - Cardiovascular Exam Cardiovascular Exam: REGULAR RHYTHM, +S1 - GI/Abdominal Exam GI & Abdominal Exam: Soft. absent: Tenderness - Extremities Exam Extremities Exam: Normal Inspection. absent: Tenderness - Neurological Exam Neurological Exam: Alert, CN II-XII Intact - Skin Skin Exam: Dry, Warm Assessment and Plan (1) CHF (congestive heart failure) Status: Acute (2) ESRD (end stage renal disease) Status: Acute (3) Anemia Status: Acute - Assessment and Plan (Free Text) Plan: dialysis MWF EST monitor Hg on EPO
[2018-05-15] MEDS ORDERED: Sodium Chloride 0.9% 1,000 ML IV SCH (12:30)
[2018-05-15 16:00] VITALS: BP 138/82; PULSE 90; TEMP 97.4; O2SAT 99
[2018-05-19] MEDS ORDERED: Ergocalciferol 50,000 Intl Units Cap PO SCH (10:00)
== END 2018-05-15 15:21 | disposition home or self-care (01) | DRG 291 ==
LOC: C.ER 19:21 → C.9E 22:03 → C.6T 05-13 10:07
PROVIDERS: ADMIT Internal Medicine Pulmonary Disease; ATTEND Internal Medicine Pulmonary Disease
PROC: 5A1D70Z Performance of Urinary Filtration, Intermittent, Less than 6 Hours Per Day (ICD-10-PCS; principal; 2018-05-14)
DX: I13.2 Hypertensive heart and chronic kidney disease with heart failure and with stage 5 chronic kidney disease, or end stage renal disease (principal); N18.6 End stage renal disease; I34.0 Nonrheumatic mitral (valve) insufficiency; I37.1 Nonrheumatic pulmonary valve insufficiency; I50.9 Heart failure, unspecified; F41.9 Anxiety disorder, unspecified; E78.5 Hyperlipidemia, unspecified; E11.65 Type 2 diabetes mellitus with hyperglycemia; J44.9 Chronic obstructive pulmonary disease, unspecified; K31.84 Gastroparesis; K59.00 Constipation, unspecified; Z79.4 Long term (current) use of insulin; E11.43 Type 2 diabetes mellitus with diabetic autonomic (poly)neuropathy; E11.22 Type 2 diabetes mellitus with diabetic chronic kidney disease; Z86.73 Personal history of transient ischemic attack (TIA), and cerebral infarction without residual deficits; Z99.2 Dependence on renal dialysis; Z99.81 Dependence on supplemental oxygen; D64.9 Anemia, unspecified

== ENCOUNTER 2018-05-22 06:48 | Inpatient (IN) | payer MEDICARE, OTHER ==
--- NOTE | 2018-05-22 07:15 | C.PDOC ---
History Of Present Illness 42 y.o female with iddm, htn, copd, chf, cva (left side residual weakness), esrd (last dialysis yesterday) presents to ED with low blood sugar (was 34 earlier), and low again once more. gradual onset throbbing headache, generalized weakness, cough and sob. pt sts blood glucose was 121 last night. did not take evening dose of insulin and did eat. pt woke in middle of night sweaty and shaky with low sugar, drank some juice. Time Seen by Provider: 05/22/18 06:58 Chief Complaint (Nursing): Weakness/Neurological Deficit History Per: Patient History/Exam Limitations: no limitations Onset/Duration Of Symptoms: Days Current Symptoms Are (Timing): Still Present Past Medical History Reviewed: Historical Data, Nursing Documentation, Vital Signs Vital Signs: Last Vital Signs Temp 97.8 F 05/22/18 15:10 Pulse 104 H 05/22/18 17:01 Resp 20 05/22/18 15:10 BP 161/87 H 05/22/18 15:10 Pulse Ox 96 05/22/18 15:10 - Medical History PMH: Anemia, Asthma, COPD, Diabetes (IDDM), Gastritis, HTN, Hypercholesterolemia , End Stage Renal Disease, Chronic Kidney Disease Surgical History: - [facility] Procedures (05/12/18) DILATION OF UPPER VEIN, PERCUTANEOUS APPROACH (01/18/18) DRAINAGE OF PERITONEAL CAVITY, PERCUTANEOUS APPROACH (01/18/18) DRAINAGE OF RIGHT PLEURAL CAVITY, PERC APPROACH, DIAGN (03/14/18) DRAINAGE OF RIGHT PLEURAL CAVITY, PERCUTANEOUS APPROACH (12/18/17) ESOPHAGOGASTRODUODENOSCOPY [EGD] W/CLOSED BIOPSY (06/18/15) EXCISION OF STOMACH, ENDO, DIAGN (09/02/16) INSERT INFUSION DEV IN R INT JUGULAR VEIN, PERC (01/18/18) INSERTION OF ENDOTRACHEAL AIRWAY INTO TRACHEA, VIA OPENING (01/18/18) OTHER SKIN & SUBQ I D (08/07/15) PERFORMANCE OF URINARY FILTRATION, MULTIPLE (09/02/16) PLAIN RADIOGRAPHY OF DIALYSIS SHUNT USING OTH CONTRAST (01/18/18) RESPIRATORY VENTILATION, 24-96 CONSECUTIVE HOURS (01/18/18) ULTRASONOGRAPHY OF LEFT UPPER EXTREMITY VEINS (09/02/16) ULTRASONOGRAPHY OF RIGHT JUGULAR VEINS, GUIDANCE (01/18/18) Family History: States: No Known Family Hx - Social History Hx Tobacco Use: No Hx Alcohol Use: No Hx Substance Use: No - Immunization History Hx Tetanus Toxoid Vaccination: No Hx Influenza Vaccination: No Hx Pneumococcal Vaccination: No Review Of Systems Constitutional: Negative for: Fever, Chills Respiratory: Positive for: Cough, Shortness of Breath Gastrointestinal: Negative for: Nausea, Vomiting Skin: Negative for: Rash Neurological: Positive for: Weakness, Headache Physical Exam - Physical Exam Appears: Non-toxic, Other (Uncomfortable) Skin: Warm, Dry, No Rash Head: Atraumatic, Normacephalic Eye(s): bilateral: Normal Inspection Oral Mucosa: Moist Neck: Normal ROM, Supple Cardiovascular: Rhythm Regular, Other (Tachycardic) Respiratory: Decreased Breath Sounds (right side), No Rales, No Rhonchi, No Wheezing Gastrointestinal/Abdominal: Soft, No Tenderness, No Guarding, No Rebound Extremity: Tenderness (left thigh. no redness or swelling), Capillary Refill (< 2 seconds), No Deformity Neurological/Psych: Oriented x3, Normal Speech, Normal Cranial Nerves, Normal Motor, Normal Sensation, Other (chronic left hand weakness secondary to prior cva) ED Course And Treatment - Laboratory Results Result Diagrams: 05/22/18 07:53 05/22/18 09:21 ECG: Interpreted By Me, Viewed By Me ECG Rhythm: Sinus Tachycardia Rate From EC (BPM) O2 Sat by Pulse Oximetry: 95 (RA) Pulse Ox Interpretation: Normal Medical Decision Making Medical Decision Making: discussed with Dr Walker; will admit to his service. pt's glucose stable now ; pt ate lunch. no insulin given. headache resolved. Disposition Discussed With : Bertha Walker Doctor Will See Patient In The: Hospital - Disposition Disposition: HOSPITALIZED Disposition Time: 11:04 Condition: STABLE - Clinical Impression Clinical Impression: CHF exacerbation, Multiple episodes of hypoglycemia - PA / BENDER MACHINE OPERATOR / Resident Statement MD/DO has reviewed & agrees with the documentation as recorded. - Scribe Statement The provider has reviewed the documentation as recorded by the Fransiscaibaashish Viramontes All medical record entries made by the Scribaashish were at my direction and personally dictated by me. I have reviewed the chart and agree that the record accurately reflects my personal performance of the history, physical exam, medical decision making, and the department course for this patient. I have also personally directed, reviewed, and agree with the discharge instructions and disposition.
--- NOTE | 2018-05-22 07:53 | RAD ---
PROCEDURE: CHEST RADIOGRAPH, 1 VIEW HISTORY: sob, cough COMPARISON: 05/12/2018 and 03/14/2018 FINDINGS: LUNGS: The right mid lung zone homogeneous opacity is smaller -a decreasing right minor fissural fluid collection is a consideration. PLEURA: No pneumothorax appreciated. The less dense airspace opacity surrounding the inferred loculated fluid is slightly increased - a mild increasing right pleural effusion is inferred. CARDIOVASCULAR: Cardiomegaly-similar. A mild increasing pulmonary venous congestion along with a right pleural effusion is also possible OSSEOUS STRUCTURES: No grossly significant abnormalities. VISUALIZED UPPER ABDOMEN: Normal. OTHER FINDINGS: None. IMPRESSION: Diminishing loculated fluid- right minor fissure. Mild increasing pleural effusion with or without increasing mild pulmonary venous congestion
[2018-05-22 07:56] LABS: BASO # 0.1 K/uL (0.0-0.2); BASO % 0.8 % (0.0-2.0); EOS # 0.4 K/uL (0.0-0.7); EOS % 3.6 % (0.0-4.0); HEMOGLOBIN 8.7 g/dL (11.0-16.0); LYMPH % 9.5 % (20.0-40.0); MEAN CELL VOLUME 87.3 fL (81.0-99.0); MEAN CORPUSCULAR HEMOGLOBIN 29.2 pg (27.0-31.0); MEAN CORPUSCULAR HGB CONC 33.5 g/dL (33.0-37.0); MEAN PLATELET VOLUME 9.9 fL (7.2-11.7); MONO # 1.5 K/uL (0.0-0.8); MONO % 14.6 % (0.0-10.0); NEUT # 7.2 K/uL (1.8-7.0); NEUT % 71.5 % (50.0-75.0); PLATELET COUNT 241 K/uL (130-400); RBC 2.97 Mil/uL (3.80-5.20); RED CELL DISTRIBUTION WIDTH 15.7 % (11.5-14.5)
[2018-05-22 08:50] LABS: ANISOCYTOSIS SLIGHT; EOSINOPHIL 4 % (0-4); HYPOCHROMIC SLIGHT; LYMPHOCYTE 4 % (20-40); MONOCYTE 11 % (0-10); NEUTROPHIL 81 % (50-75); PLATELET ESTIMATE NORMAL (NORMAL); POLYCHROMIC SLIGHT; TOTAL CELLS COUNTED 100
--- NOTE | 2018-05-22 09:00 | CT ---
PROCEDURE: CT HEAD WITHOUT CONTRAST. HISTORY: headache COMPARISON: None available. TECHNIQUE: Axial computed tomography images were obtained through the head/brain without intravenous contrast. Radiation dose: Total exam DLP = 659 mGy-cm. This CT exam was performed using one or more of the following dose reduction techniques: Automated exposure control, adjustment of the mA and/or kV according to patient size, and/or use of iterative reconstruction technique. FINDINGS: HEMORRHAGE: No intracranial hemorrhage. BRAIN: No mass effect or edema. Scattered focal lucencies in the subcortical and periventricular white matter suggestive for chronic microvascular ischemic change. VENTRICLES: Ventricles are unchanged in size and configuration. Persistent prominence of the posterior horn of the lateral ventricles and 4th ventricles, unchanged. CALVARIUM: Unremarkable. PARANASAL SINUSES: Unremarkable as visualized. No significant inflammatory changes. MASTOID AIR CELLS: Unremarkable as visualized. No inflammatory changes. OTHER FINDINGS: None. IMPRESSION: Ventricles are unchanged in size and configuration. Persistent prominence of the posterior horn of the lateral ventricles and 4th ventricles, unchanged. Chronic microvascular ischemic change. If symptoms persists, consider MRI.
[2018-05-22] MEDS ORDERED: Oxycodone/Acetaminophen 5/325 mg Tab PO STA (09:30)
[2018-05-22] MEDS ORDERED: Oxycodone/Acetaminophen 5/325 mg Tab ONE (09:31)
[2018-05-22 09:57] LABS: ALB/GLOB RATIO 0.6 (1.0-2.1); ALBUMIN 3.5 g/dL (3.5-5.0); CALCIUM 8.9 mg/dl (8.6-10.4)
[2018-05-22 09:59] LABS: TROPONIN I 0.016 ng/mL (0.00-0.120)
[2018-05-22] MEDS ORDERED: Dextrose 50% SYRINGE Inj (50 ml) IV STA (18:23)
[2018-05-22] MEDS ORDERED: Dextrose 50% VIAL Inj (50 ml) IV ONE (18:25)
[2018-05-22] MEDS ORDERED: Magnesium Hydroxide Susp 30 ml UD PO PRN (18:49)
--- NOTE | 2018-05-22 19:15 | CP.PCM.HP ---
Past Patient History - Infectious Disease Hx of Infectious Diseases: None - Past Medical History & Family History Past Medical History?: Yes - Past Social History Smoking Status: Never Smoked - CARDIAC Hx Hypercholesterolemia: Yes Hx Hypertension: Yes - PULMONARY Hx Asthma: Yes Hx Chronic Obstructive Pulmonary Disease (COPD): Yes - NEUROLOGICAL HX Cerebrovascular Accident: Yes (01/2016, left sided weakness) - HEENT Hx HEENT Problems: Yes Other/Comment: Wears Eyeglasses - RENAL Hx Chronic Kidney Disease: Yes - ENDOCRINE/METABOLIC Hx Hyperthyroidism: No - HEMATOLOGICAL/ONCOLOGICAL Hx Anemia: Yes - INTEGUMENTARY Hx Dermatological Problems: No - MUSCULOSKELETAL/RHEUMATOLOGICAL Hx Falls: No - GASTROINTESTINAL Hx Gastritis: Yes - GENITOURINARY/GYNECOLOGICAL Hx Genitourinary Disorders: No - PSYCHIATRIC Hx Substance Use: No - SURGICAL HISTORY Hx Surgeries: Yes Hx Section: Yes Other/Comment: Insertion Of HD Cath on the R Internal Jugular; left forearm graft for dialysis. - ANESTHESIA Hx Anesthesia: Yes Hx Anesthesia Reactions: No Hx Malignant Hyperthermia: No Meds Allergies/Adverse Reactions: Allergies Allergy/AdvReac Type Severity Reaction Status Date / Time No Known Allergies Allergy Verified 01/18/18 08:51 Results - Vital Signs Recent Vital Signs: Last Vital Signs Temp 97.8 F 05/22/18 15:10 Pulse 104 H 05/22/18 17:01 Resp 20 05/22/18 15:10 BP 161/87 H 05/22/18 15:10 Pulse Ox 95 05/22/18 17:43 - Labs Result Diagrams: 05/22/18 07:53 05/22/18 09:21 Labs: Laboratory Results - last 24 hr 05/22/18 05/22/18 05/22/18 06:56 07:53 09:21 WBC 10.0 RBC 2.97 L Hgb 8.7 L Hct 25.9 L MCV 87.3 MCH 29.2 MCHC 33.5 RDW 15.7 H Plt Count 241 MPV 9.9 Neut % (Auto) 71.5 Lymph % (Auto) 9.5 L Barn[place] % (Auto) 14.6 H Eos % (Auto) 3.6 Baso % (Auto) 0.8 Neut # (Auto) 7.2 H Lymph # (Auto) 1.0 [place] # (Auto) 1.5 H Eos # (Auto) 0.4 Baso # (Auto) 0.1 Neutrophils % (Manual) 81 H Lymphocytes % (Manual) 4 L Monocytes % (Manual) 11 H Eosinophils % (Manual) 4 Platelet Estimate Normal Polychromasia Slight Hypochromasia (manual) Slight Anisocytosis (manual) Slight Sodium 143 Potassium 3.6 Chloride 94 L Carbon Dioxide 37 H Anion Gap 16 BUN 22 H Creatinine 3.5 H Est GFR ( Amer) 17 Est GFR (Non-Af Amer) 14 POC Glucose (mg/dL) 110 Random Glucose 147 H Calcium 8.9 Total Bilirubin 2.0 H AST 78 H D ALT 9 D Alkaline Phosphatase 1249 H Troponin I 0.0160 NT-Pro-B Natriuret Pep 57339 H Total Protein 9.5 H Albumin 3.5 Globulin 6.0 H Albumin/Globulin Ratio 0.6 L 05/22/18 05/22/18 05/22/18 10:21 18:07 18:08 WBC RBC Hgb Hct MCV MCH MCHC RDW Plt Count MPV Neut % (Auto) Lymph % (Auto) [place] % (Auto) Eos % (Auto) Baso % (Auto) Neut # (Auto) Lymph # (Auto) [place] # (Auto) Eos # (Auto) Baso # (Auto) Neutrophils % (Manual) Lymphocytes % (Manual) Monocytes % (Manual) Eosinophils % (Manual) Platelet Estimate Polychromasia Hypochromasia (manual) Anisocytosis (manual) Sodium Potassium Chloride Carbon Dioxide Anion Gap BUN Creatinine Est GFR ( Amer) Est GFR (Non-Af Amer) POC Glucose (mg/dL) 140 H 39 L 36 L* Random Glucose Calcium Total Bilirubin AST ALT Alkaline Phosphatase Troponin I NT-Pro-B Natriuret Pep Total Protein Albumin Globulin Albumin/Globulin Ratio 05/22/18 05/22/18 18:19 18:24 WBC RBC Hgb Hct MCV MCH MCHC RDW Plt Count MPV Neut % (Auto) Lymph % (Auto) [place] % (Auto) Eos % (Auto) Baso % (Auto) Neut # (Auto) Lymph # (Auto) [place] # (Auto) Eos # (Auto) Baso # (Auto) Neutrophils % (Manual) Lymphocytes % (Manual) Monocytes % (Manual) Eosinophils % (Manual) Platelet Estimate Polychromasia Hypochromasia (manual) Anisocytosis (manual) Sodium Potassium Chloride Carbon Dioxide Anion Gap BUN Creatinine Est GFR ( Amer) Est GFR (Non-Af Amer) POC Glucose (mg/dL) 44 L 63 L Random Glucose Calcium Total Bilirubin AST ALT Alkaline Phosphatase Troponin I NT-Pro-B Natriuret Pep Total Protein Albumin Globulin Albumin/Globulin Ratio
[2018-05-22] MEDS: Albuterol-Ipratrop 3 mg / 0.5 (3 ml) UD IH SCH (21:35)
[2018-05-23] MEDS: Albuterol-Ipratrop 3 mg / 0.5 (3 ml) UD IH SCH ×6 (00:27→19:57)
[2018-05-23] MEDS: Multiple Vitamins Tab PO SCH (09:52)
[2018-05-23] MEDS: Fluticasone-Salmeterol 250-50mcg Diskus INH SCH (10:59)
--- NOTE | 2018-05-23 14:40 | CP.PCM.CON ---
History of Present Illness - History of Present Illness History of Present Illness: 42 y.o female with iddm, htn, copd, chf, cva (left side residual weakness), esrd (last dialysis yesterday) presents to ED with low blood sugar (was 34 earlier), and low again once more. gradual onset throbbing headache, generalized weakness, cough and sob. pt sts blood glucose was 121 last night. did not take evening dose of insulin and did eat. pt woke in middle of night sweaty and shaky with low sugar, drank some juice. Has had recurrent episodes of CHF Recently changed long acting insulin and BSs very labile Last HD 05/21 CXR with CHF PMH: ESRD S/P RIGHT CVA HTN 'CMP COPD CARDIOMYOPATHY PSH:AV FISTULA Review of Systems - Constitutional Constitutional: Lethargy, Weakness - EENT Eyes: absent: As Per HPI, Blind Spots, Blurred Vision, Change in Vision, Decreased Night Vision, Diplopia, Discharge, Dry Eye, Exophthalmos, Floaters, Irritation, Itchy Eyes, Loss of Peripheral Vision, Pain, Photophobia, Requires Corrective Lenses, Sees Flashes, Spots in Vision, Tunnel Vision, Other Visual Disturbances, Loss of Vision, Other Ears: absent: As Per HPI, Decreased Hearing, Ear Discharge, Ear Pain, Tinnitus, Abnormal Hearing, Disequilibrium, Dizziness, Other Nose/Mouth/Throat: absent: As Per HPI, Epistaxis, Nasal Congestion, Nasal Discharge, Nasal Obstruction, Nasal Trauma, Nose Pain, Post Nasal Drip, Sinus Pain, Sinus Pressure, Bleeding Gums, Change in Voice, Dental Pain, Dry Mouth, Dysphagia, Halitosis, Hoarsness, Lip Swelling, Mouth Lesions, Mouth Pain, Odynophagia, Sore Throat, Throat Swelling, Tongue Swelling, Facial Pain, Neck Pain, Neck Mass, Other - Cardiovascular Cardiovascular: Dyspnea on Exertion, Palpitations - Respiratory Respiratory: Cough, Dyspnea on Exertion - Gastrointestinal Gastrointestinal: Constipation - Genitourinary Genitourinary: As Per HPI - Musculoskeletal Musculoskeletal: Muscle Cramps, Muscle Weakness, Myalgias Past Patient History - Infectious Disease Hx of Infectious Diseases: None - Past Medical History & Family History Past Medical History?: Yes Past Family History: Reviewed and not pertinent - Past Social History Smoking Status: Never Smoked Chewing Tobacco Use: No Cigar Use: No Alcohol: None Drugs: Denies - CARDIAC Hx Hypercholesterolemia: Yes Hx Hypertension: Yes - PULMONARY Hx Asthma: Yes Hx Chronic Obstructive Pulmonary Disease (COPD): Yes - NEUROLOGICAL HX Cerebrovascular Accident: Yes (01/2016, left sided weakness) - HEENT Hx HEENT Problems: Yes Other/Comment: Wears Eyeglasses - RENAL Hx Chronic Kidney Disease: Yes - ENDOCRINE/METABOLIC Hx Hyperthyroidism: No - HEMATOLOGICAL/ONCOLOGICAL Hx Anemia: Yes - INTEGUMENTARY Hx Dermatological Problems: No - MUSCULOSKELETAL/RHEUMATOLOGICAL Hx Falls: No - GASTROINTESTINAL Hx Gastritis: Yes - GENITOURINARY/GYNECOLOGICAL Hx Genitourinary Disorders: No - PSYCHIATRIC Hx Substance Use: No - SURGICAL HISTORY Hx Surgeries: Yes Hx Section: Yes Other/Comment: Insertion Of HD Cath on the R Internal Jugular; left forearm graft for dialysis. - ANESTHESIA Hx Anesthesia: Yes Hx Anesthesia Reactions: No Hx Malignant Hyperthermia: No Meds Allergies/Adverse Reactions: Allergies Allergy/AdvReac Type Severity Reaction Status Date / Time No Known Allergies Allergy Verified 01/18/18 08:51 - Medications Medications: Current Medications Acetaminophen (Tylenol 325mg Tab) 325 mg PO Q4 PRN PRN Reason: Pain, Mild (1-3) Albuterol/Ipratropium (Duoneb 3 Mg/0.5 Mg (3 Ml) Ud) 3 ml IH Q4 [facility] Last Admin: 05/23/18 10:59 Dose: 3 ml Amlodipine Besylate (Norvasc) 5 mg PO DAILY [facility] Last Admin: 05/23/18 10:00 Dose: Not Given Aspirin (Ecotrin) 81 mg PO DAILY [facility] Last Admin: 05/23/18 10:00 Dose: Not Given Cinacalcet (Sensipar) 30 mg PO DAILY [facility] Last Admin: 05/23/18 09:52 Dose: 30 mg Clopidogrel Bisulfate (Plavix) 75 mg PO DAILY [facility] Last Admin: 05/23/18 09:52 Dose: 75 mg Docusate Sodium (Colace) 100 mg PO DAILY [facility] Last Admin: 05/23/18 09:52 Dose: 100 mg Famotidine (Pepcid) 20 mg PO DAILY [facility] Last Admin: 05/23/18 09:52 Dose: 20 mg Gabapentin (Neurontin) 100 mg PO DAILY [facility] Last Admin: 05/23/18 09:52 Dose: 100 mg Heparin Sodium (Porcine) (Heparin) 5,000 units SC Q8 [facility] Last Admin: 05/23/18 13:00 Dose: 5,000 units Lactulose (Enulose) 10 gm PO DAILY PRN PRN Reason: Constipation Magnesium Hydroxide (Milk Of Magnesia) 30 ml PO DAILY PRN PRN Reason: Constipation Metoclopramide HCl (Reglan) 10 mg PO ACHS [facility] Last Admin: 05/23/18 12:15 Dose: 10 mg Metoprolol Tartrate (Lopressor) 50 mg PO BID [facility] Last Admin: 05/23/18 10:00 Dose: Not Given Morphine Sulfate (Morphine) 2 mg IVP Q6H PRN PRN Reason: Pain, severe (8-10) Last Admin: 05/23/18 08:24 Dose: 2 mg Multivitamins (Hexavitamin) 1 tab PO DAILY [facility] Last Admin: 05/23/18 09:52 Dose: 1 tab Rosuvastatin Calcium (Crestor) 10 mg PO HS [facility] Last Admin: 05/22/18 21:53 Dose: 10 mg Fluticasone/Salmeterol (Advair Diskus 250/50) 1 puff INH RQD [facility] Last Admin: 05/23/18 10:59 Dose: 1 puff Sertraline HCl (Zoloft) 50 mg PO DAILY [facility] Last Admin: 05/23/18 09:52 Dose: 50 mg Sevelamer Carbonate (Renvela) 800 mg PO TID [facility] Last Admin: 05/23/18 13:00 Dose: 800 mg Tramadol HCl (Ultram) 50 mg PO TID PRN PRN Reason: Pain, moderate (4-7) Physical Exam - Constitutional Appears: In Acute Distress, Chronically Ill - Head Exam Head Exam: ATRAUMATIC, NORMAL INSPECTION - Eye Exam Eye Exam: EOMI, Normal appearance - Neck Exam Neck exam: Positive for: Normal Inspection. Negative for: Tenderness - Respiratory Exam Respiratory Exam: Rhonchi, Respiratory Distress - Cardiovascular Exam Cardiovascular Exam: REGULAR RHYTHM, +S1 - GI/Abdominal Exam GI & Abdominal Exam: Soft. absent: Tenderness - Extremities Exam Extremities exam: Positive for: normal inspection. Negative for: tenderness - Neurological Exam Neurological exam: Alert, CN II-XII Intact - Skin Skin Exam: Dry, Warm Results - Vital Signs Recent Vital Signs: Last Vital Signs Temp 97.9 F 05/23/18 08:12 Pulse 89 05/23/18 08:12 Resp 20 05/23/18 08:12 BP 155/96 H 05/23/18 08:12 Pulse Ox 99 05/23/18 08:12 - Labs Result Diagrams: 05/22/18 07:53 05/22/18 09:21 Labs: Laboratory Results - last 24 hr 05/22/18 05/22/18 05/22/18 18:07 18:08 18:19 POC Glucose (mg/dL) 39 L 36 L* 44 L 05/22/18 05/22/18 05/22/18 18:24 18:30 21:14 POC Glucose (mg/dL) 63 L 78 41 L 05/22/18 05/22/18 05/22/18 21:16 21:38 21:40 POC Glucose (mg/dL) 46 L 49 L 49 L 05/22/18 05/23/18 05/23/18 22:10 00:52 01:54 POC Glucose (mg/dL) 77 70 95 05/23/18 05/23/18 05/23/18 04:11 04:14 04:38 POC Glucose (mg/dL) 45 L 49 L 86 05/23/18 05/23/18 05/23/18 06:34 06:36 07:01 POC Glucose (mg/dL) 64 L 69 78 05/23/18 11:41 POC Glucose (mg/dL) 54 L Assessment & Plan (1) Type 2 diabetes mellitus with diabetic nephropathy Status: Acute (2) End stage renal disease Status: Acute (3) CVA (cerebral vascular accident) Status: Acute (4) CHF exacerbation Status: Acute (5) Hypertension Status: Chronic - Assessment and Plan (Free Text) Plan: dialysis LINUS Increase UF DM management Monitor BP
--- NOTE | 2018-05-23 19:05 | CP.PCM.PN ---
Subjective - Date & Time of Evaluation Date of Evaluation: 05/23/18 Time of Evaluation: 19:05 Objective - Vital Signs/Intake and Output Vital Signs (last 24 hours): Temp Pulse Resp BP Pulse Ox 98 F 109 H 18 146/89 99 05/23/18 15:54 05/23/18 17:51 05/23/18 15:54 05/23/18 15:54 05/23/18 15:54 - Medications Medications: Current Medications Acetaminophen (Tylenol 325mg Tab) 325 mg PO Q4 PRN PRN Reason: Pain, Mild (1-3) Albuterol/Ipratropium (Duoneb 3 Mg/0.5 Mg (3 Ml) Ud) 3 ml IH Q4 [facility] Last Admin: 05/23/18 16:08 Dose: 3 ml Amlodipine Besylate (Norvasc) 5 mg PO DAILY [facility] Last Admin: 05/23/18 10:00 Dose: Not Given Aspirin (Ecotrin) 81 mg PO DAILY [facility] Last Admin: 05/23/18 10:00 Dose: Not Given Cinacalcet (Sensipar) 30 mg PO DAILY [facility] Last Admin: 05/23/18 09:52 Dose: 30 mg Clopidogrel Bisulfate (Plavix) 75 mg PO DAILY [facility] Last Admin: 05/23/18 09:52 Dose: 75 mg Docusate Sodium (Colace) 100 mg PO DAILY [facility] Last Admin: 05/23/18 09:52 Dose: 100 mg Famotidine (Pepcid) 20 mg PO DAILY [facility] Last Admin: 05/23/18 09:52 Dose: 20 mg Gabapentin (Neurontin) 100 mg PO DAILY [facility] Last Admin: 05/23/18 09:52 Dose: 100 mg Heparin Sodium (Porcine) (Heparin) 5,000 units SC Q8 [facility] Last Admin: 05/23/18 13:00 Dose: 5,000 units Lactulose (Enulose) 10 gm PO DAILY PRN PRN Reason: Constipation Magnesium Hydroxide (Milk Of Magnesia) 30 ml PO DAILY PRN PRN Reason: Constipation Metoclopramide HCl (Reglan) 10 mg PO ACHS [facility] Last Admin: 05/23/18 17:13 Dose: 10 mg Metoprolol Tartrate (Lopressor) 50 mg PO BID [facility] Last Admin: 05/23/18 17:14 Dose: Not Given Morphine Sulfate (Morphine) 2 mg IVP Q6H PRN PRN Reason: Pain, severe (8-10) Last Admin: 05/23/18 14:36 Dose: 2 mg Multivitamins (Hexavitamin) 1 tab PO DAILY [facility] Last Admin: 05/23/18 09:52 Dose: 1 tab Rosuvastatin Calcium (Crestor) 10 mg PO HS [facility] Last Admin: 05/22/18 21:53 Dose: 10 mg Fluticasone/Salmeterol (Advair Diskus 250/50) 1 puff INH RQD [facility] Last Admin: 05/23/18 10:59 Dose: 1 puff Sertraline HCl (Zoloft) 50 mg PO DAILY [facility] Last Admin: 05/23/18 09:52 Dose: 50 mg Sevelamer Carbonate (Renvela) 800 mg PO TID [facility] Last Admin: 05/23/18 17:13 Dose: 800 mg Tramadol HCl (Ultram) 50 mg PO TID PRN PRN Reason: Pain, moderate (4-7) Last Admin: 05/23/18 17:13 Dose: 50 mg - Labs Labs: 05/22/18 07:53 05/22/18 09:21
[2018-05-23 19:20] LABS: INR 1.3; PROTHROMBIN TIME 14.4 SECONDS (9.7-12.2)
[2018-05-24] MEDS: Albuterol-Ipratrop 3 mg / 0.5 (3 ml) UD IH SCH ×6 (00:45→20:08)
[2018-05-24] MEDS ORDERED: Dextrose 50% SYRINGE Inj (50 ml) IV STA (07:09)
[2018-05-24] MEDS: Fluticasone-Salmeterol 250-50mcg Diskus INH SCH (08:19)
--- NOTE | 2018-05-24 09:40 | CP.PCM.PN ---
Subjective - Date & Time of Evaluation Date of Evaluation: 05/24/18 Time of Evaluation: 09:40 Objective - Vital Signs/Intake and Output Vital Signs (last 24 hours): Temp Pulse Resp BP Pulse Ox 97.9 F 92 H 20 144/89 97 05/24/18 07:51 05/24/18 07:51 05/24/18 07:51 05/24/18 07:51 05/24/18 07:51 Intake and Output: 05/24/18 05/24/18 06:59 18:59 Intake Total 300 Balance 300 - Medications Medications: Current Medications Acetaminophen (Tylenol 325mg Tab) 325 mg PO Q4 PRN PRN Reason: Pain, Mild (1-3) Albuterol/Ipratropium (Duoneb 3 Mg/0.5 Mg (3 Ml) Ud) 3 ml IH Q4 [facility] Last Admin: 05/24/18 08:19 Dose: 3 ml Amlodipine Besylate (Norvasc) 5 mg PO DAILY [facility] Last Admin: 05/23/18 22:25 Dose: 5 mg Aspirin (Ecotrin) 81 mg PO DAILY [facility] Last Admin: 05/23/18 10:00 Dose: Not Given Cinacalcet (Sensipar) 30 mg PO DAILY [facility] Last Admin: 05/23/18 09:52 Dose: 30 mg Clopidogrel Bisulfate (Plavix) 75 mg PO DAILY [facility] Last Admin: 05/23/18 09:52 Dose: 75 mg Docusate Sodium (Colace) 100 mg PO DAILY [facility] Last Admin: 05/23/18 09:52 Dose: 100 mg Famotidine (Pepcid) 20 mg PO DAILY [facility] Last Admin: 05/23/18 09:52 Dose: 20 mg Gabapentin (Neurontin) 100 mg PO DAILY [facility] Last Admin: 05/23/18 09:52 Dose: 100 mg Heparin Sodium (Porcine) (Heparin) 5,000 units SC Q8 [facility] Last Admin: 05/24/18 05:55 Dose: Not Given Lactulose (Enulose) 10 gm PO DAILY PRN PRN Reason: Constipation Magnesium Hydroxide (Milk Of Magnesia) 30 ml PO DAILY PRN PRN Reason: Constipation Metoclopramide HCl (Reglan) 10 mg PO ACHS [facility] Last Admin: 05/23/18 22:37 Dose: 10 mg Metoprolol Tartrate (Lopressor) 50 mg PO BID [facility] Last Admin: 05/23/18 22:25 Dose: 50 mg Morphine Sulfate (Morphine) 2 mg IVP Q6H PRN PRN Reason: Pain, severe (8-10) Last Admin: 05/24/18 06:22 Dose: 2 mg Multivitamins (Hexavitamin) 1 tab PO DAILY [facility] Last Admin: 05/23/18 09:52 Dose: 1 tab Rosuvastatin Calcium (Crestor) 10 mg PO HS [facility] Last Admin: 05/23/18 22:25 Dose: 10 mg Fluticasone/Salmeterol (Advair Diskus 250/50) 1 puff INH RQD [facility] Last Admin: 05/24/18 08:19 Dose: 1 puff Sertraline HCl (Zoloft) 50 mg PO DAILY [facility] Last Admin: 05/23/18 09:52 Dose: 50 mg Sevelamer Carbonate (Renvela) 800 mg PO TID [facility] Last Admin: 05/23/18 17:13 Dose: 800 mg Tramadol HCl (Ultram) 50 mg PO TID PRN PRN Reason: Pain, moderate (4-7) Last Admin: 05/23/18 17:13 Dose: 50 mg - Labs Labs: 05/22/18 07:53 05/22/18 09:21 PT 14.4 SECONDS (9.7-12.2) H 05/23/18 18:44 INR 1.3 05/23/18 18:44 APTT 49 SECONDS (21-34) H 05/23/18 18:44
[2018-05-24] MEDS: Multiple Vitamins Tab PO SCH (10:02)
--- NOTE | 2018-05-24 10:11 | CP.PCM.PN ---
Subjective - Date & Time of Evaluation Date of Evaluation: 05/24/18 Time of Evaluation: 10:08 - Subjective Subjective: stable dialysis 05/23- UF 3000ml less dyspneic alert, no new complaint BSs labile still Hg low- will need to resume ESAs, check iron stores Objective - Vital Signs/Intake and Output Vital Signs (last 24 hours): Temp Pulse Resp BP Pulse Ox 97.9 F 92 H 20 144/89 97 05/24/18 07:51 05/24/18 07:51 05/24/18 07:51 05/24/18 07:51 05/24/18 07:51 Intake and Output: 05/24/18 05/24/18 06:59 18:59 Intake Total 300 Balance 300 - Medications Medications: Current Medications Acetaminophen (Tylenol 325mg Tab) 325 mg PO Q4 PRN PRN Reason: Pain, Mild (1-3) Albuterol/Ipratropium (Duoneb 3 Mg/0.5 Mg (3 Ml) Ud) 3 ml IH Q4 [facility] Last Admin: 05/24/18 08:19 Dose: 3 ml Amlodipine Besylate (Norvasc) 5 mg PO DAILY [facility] Last Admin: 05/24/18 10:02 Dose: 5 mg Aspirin (Ecotrin) 81 mg PO DAILY [facility] Last Admin: 05/24/18 10:02 Dose: 81 mg Cinacalcet (Sensipar) 30 mg PO DAILY [facility] Last Admin: 05/24/18 10:02 Dose: 30 mg Clopidogrel Bisulfate (Plavix) 75 mg PO DAILY [facility] Last Admin: 05/24/18 10:02 Dose: 75 mg Docusate Sodium (Colace) 100 mg PO DAILY [facility] Last Admin: 05/24/18 10:02 Dose: 100 mg Famotidine (Pepcid) 20 mg PO DAILY [facility] Last Admin: 05/24/18 10:02 Dose: 20 mg Gabapentin (Neurontin) 100 mg PO DAILY [facility] Last Admin: 05/24/18 10:02 Dose: 100 mg Heparin Sodium (Porcine) (Heparin) 5,000 units SC Q8 [facility] Last Admin: 05/24/18 05:55 Dose: Not Given Dextrose (Dextrose 10% In Water) 1,000 mls @ 30 mls/hr IV .Q24H [facility] Lactulose (Enulose) 10 gm PO DAILY PRN PRN Reason: Constipation Magnesium Hydroxide (Milk Of Magnesia) 30 ml PO DAILY PRN PRN Reason: Constipation Metoclopramide HCl (Reglan) 10 mg PO ACHS [facility] Last Admin: 05/24/18 08:00 Dose: 10 mg Metoprolol Tartrate (Lopressor) 50 mg PO BID [facility] Last Admin: 05/24/18 10:02 Dose: 50 mg Morphine Sulfate (Morphine) 2 mg IVP Q6H PRN PRN Reason: Pain, severe (8-10) Last Admin: 05/24/18 06:22 Dose: 2 mg Multivitamins (Hexavitamin) 1 tab PO DAILY [facility] Last Admin: 05/24/18 10:02 Dose: 1 tab Rosuvastatin Calcium (Crestor) 10 mg PO HS [facility] Last Admin: 05/23/18 22:25 Dose: 10 mg Fluticasone/Salmeterol (Advair Diskus 250/50) 1 puff INH RQD [facility] Last Admin: 05/24/18 08:19 Dose: 1 puff Sertraline HCl (Zoloft) 50 mg PO DAILY [facility] Last Admin: 05/24/18 10:02 Dose: 50 mg Sevelamer Carbonate (Renvela) 800 mg PO TID [facility] Last Admin: 05/24/18 10:02 Dose: 800 mg Tramadol HCl (Ultram) 50 mg PO TID PRN PRN Reason: Pain, moderate (4-7) Last Admin: 05/23/18 17:13 Dose: 50 mg - Labs Labs: 05/22/18 07:53 05/22/18 09:21 PT 14.4 SECONDS (9.7-12.2) H 05/23/18 18:44 INR 1.3 05/23/18 18:44 APTT 49 SECONDS (21-34) H 05/23/18 18:44 - Constitutional Appears: No Acute Distress, Chronically Ill - Head Exam Head Exam: ATRAUMATIC, NORMAL INSPECTION - Eye Exam Eye Exam: EOMI, Normal appearance - Respiratory Exam Respiratory Exam: Rhonchi, NORMAL BREATHING PATTERN - Cardiovascular Exam Cardiovascular Exam: REGULAR RHYTHM, +S1 - GI/Abdominal Exam GI & Abdominal Exam: Soft, Tenderness - Extremities Exam Extremities Exam: Normal Inspection. absent: Tenderness - Neurological Exam Neurological Exam: Alert, CN II-XII Intact - Skin Skin Exam: Dry, Warm Assessment and Plan (1) Type 2 diabetes mellitus with diabetic nephropathy Status: Acute (2) End stage renal disease Status: Acute (3) CVA (cerebral vascular accident) Status: Acute (4) CHF exacerbation Status: Acute (5) Hypertension Status: Chronic - Assessment and Plan (Free Text) Plan: dialysis MWF with adequate UF fluid restriction advised add EPO check iron stores DM management
[2018-05-25] MEDS: Albuterol-Ipratrop 3 mg / 0.5 (3 ml) UD IH SCH ×7 (00:19→23:50)
[2018-05-25] MEDS: Fluticasone-Salmeterol 250-50mcg Diskus INH SCH (08:14)
[2018-05-25] MEDS: Multiple Vitamins Tab PO SCH (09:28)
--- NOTE | 2018-05-25 10:36 | CP.PCM.PN ---
Subjective - Date & Time of Evaluation Date of Evaluation: 05/25/18 Time of Evaluation: 10:33 - Subjective Subjective: CHART REVIEWED, PT SEEN AND EXAMINED, COVERING DR MANTILLA PT ALERT, LESS SOB., EATING OK. NO CP . ROS; OTHERWISE NEG. Objective - Vital Signs/Intake and Output Vital Signs (last 24 hours): Temp Pulse Resp BP Pulse Ox 97.6 F 85 20 150/87 96 05/25/18 08:34 05/25/18 08:34 05/25/18 08:34 05/25/18 08:34 05/25/18 08:34 Intake and Output: 05/25/18 05/25/18 06:59 18:59 Intake Total 660 Balance 660 - Medications Medications: Current Medications Acetaminophen (Tylenol 325mg Tab) 325 mg PO Q4 PRN PRN Reason: Pain, Mild (1-3) Albuterol/Ipratropium (Duoneb 3 Mg/0.5 Mg (3 Ml) Ud) 3 ml IH Q4 [facility] Last Admin: 05/25/18 08:15 Dose: 3 ml Amlodipine Besylate (Norvasc) 5 mg PO DAILY [facility] Last Admin: 05/25/18 09:29 Dose: 5 mg Aspirin (Ecotrin) 81 mg PO DAILY [facility] Last Admin: 05/25/18 09:34 Dose: 81 mg Cinacalcet (Sensipar) 30 mg PO DAILY [facility] Last Admin: 05/25/18 09:34 Dose: 30 mg Clopidogrel Bisulfate (Plavix) 75 mg PO DAILY [facility] Last Admin: 05/25/18 09:28 Dose: 75 mg Docusate Sodium (Colace) 100 mg PO DAILY [facility] Last Admin: 05/25/18 09:29 Dose: 100 mg Epoetin Kevin (Procrit) 10,000 unit IV MWF [facility] Famotidine (Pepcid) 20 mg PO DAILY [facility] Last Admin: 05/25/18 09:29 Dose: 20 mg Gabapentin (Neurontin) 100 mg PO DAILY [facility] Last Admin: 05/25/18 09:29 Dose: 100 mg Heparin Sodium (Porcine) (Heparin) 5,000 units SC Q8 [facility] Last Admin: 05/25/18 05:39 Dose: 5,000 units Dextrose (Dextrose 10% In Water) 1,000 mls @ 30 mls/hr IV .Q24H [facility] Last Admin: 05/24/18 10:15 Dose: 30 mls/hr Lactulose (Enulose) 10 gm PO DAILY PRN PRN Reason: Constipation Magnesium Hydroxide (Milk Of Magnesia) 30 ml PO DAILY PRN PRN Reason: Constipation Metoclopramide HCl (Reglan) 10 mg PO ACHS [facility] Last Admin: 05/25/18 08:30 Dose: 10 mg Metoprolol Tartrate (Lopressor) 50 mg PO BID [facility] Last Admin: 05/25/18 09:29 Dose: 50 mg Morphine Sulfate (Morphine) 2 mg IVP Q6H PRN PRN Reason: Pain, severe (8-10) Last Admin: 05/25/18 05:39 Dose: 2 mg Multivitamins (Hexavitamin) 1 tab PO DAILY [facility] Last Admin: 05/25/18 09:28 Dose: 1 tab Rosuvastatin Calcium (Crestor) 10 mg PO HS [facility] Last Admin: 05/24/18 21:26 Dose: 10 mg Fluticasone/Salmeterol (Advair Diskus 250/50) 1 puff INH RQD [facility] Last Admin: 05/25/18 08:14 Dose: 1 puff Sertraline HCl (Zoloft) 50 mg PO DAILY [facility] Last Admin: 05/25/18 09:29 Dose: 50 mg Sevelamer Carbonate (Renvela) 800 mg PO TID [facility] Last Admin: 05/25/18 09:29 Dose: 800 mg Tramadol HCl (Ultram) 50 mg PO TID PRN PRN Reason: Pain, moderate (4-7) Last Admin: 05/25/18 09:29 Dose: 50 mg - Labs Labs: 05/22/18 07:53 05/22/18 09:21 PT 14.4 SECONDS (9.7-12.2) H 05/23/18 18:44 INR 1.3 05/23/18 18:44 APTT 49 SECONDS (21-34) H 05/23/18 18:44 - Constitutional Appears: No Acute Distress, Chronically Ill - Head Exam Head Exam: ATRAUMATIC, NORMOCEPHALIC - Eye Exam Eye Exam: EOMI, Normal appearance - ENT Exam ENT Exam: Mucous Membranes Moist - Neck Exam Neck Exam: Normal Inspection. absent: Tenderness - Respiratory Exam Respiratory Exam: Rhonchi Additional comments: BIBASILAR RHONCHI. - Cardiovascular Exam Cardiovascular Exam: RRR, +S1, +S2 - GI/Abdominal Exam GI & Abdominal Exam: Soft. absent: Tenderness - Rectal Exam Rectal Exam: Deferred - Extremities Exam Extremities Exam: absent: Calf Tenderness, Pedal Edema - Back Exam Back Exam: absent: CVA tenderness (L), CVA tenderness (R) - Neurological Exam Neurological Exam: Alert, Awake, CN II-XII Intact, Oriented x3 - Psychiatric Exam Psychiatric exam: Normal Affect - Skin Skin Exam: absent: Rash Assessment and Plan (1) COPD exacerbation Status: Acute (2) Respiratory failure Status: Acute (3) CHF exacerbation Status: Acute (4) CVA (cerebral vascular accident) Status: Acute (5) End stage renal disease Status: Acute (6) Type 2 diabetes mellitus with diabetic nephropathy Status: Acute (7) Anemia Status: Acute (8) Hypertension Status: Chronic - Assessment and Plan (Free Text) Assessment: RESP STATUS NO SIG CHANGE., TOLERATING O2 AT 2L., CONT NEB BD., PULM TOILET., CXR REVIEWED. MONITOR H/H. HD PER RENAL. PROG GUARDED. DISCUSSED WITH STAFF AT LENGTH.
--- NOTE | 2018-05-25 22:02 | CARD ---
APPROVED REPORT EKG Measurement Heart [id number] <Conclusion> Sinus tachycardia Rightward axis Nonspecific T wave abnormality Abnormal ECG
--- NOTE | 2018-05-26 01:54 | CP.PCM.PN ---
Subjective - Date & Time of Evaluation Date of Evaluation: 05/25/18 Time of Evaluation: 08:45 - Subjective Subjective: clinically same Objective - Vital Signs/Intake and Output Vital Signs (last 24 hours): Temp Pulse Resp BP Pulse Ox 98.7 F 83 20 132/68 95 05/26/18 00:00 05/26/18 00:00 05/26/18 00:00 05/26/18 00:00 05/26/18 00:00 Intake and Output: 05/25/18 05/26/18 18:59 06:59 Intake Total 800 290 Balance 800 290 - Medications Medications: Current Medications Acetaminophen (Tylenol 325mg Tab) 325 mg PO Q4 PRN PRN Reason: Pain, Mild (1-3) Albuterol/Ipratropium (Duoneb 3 Mg/0.5 Mg (3 Ml) Ud) 3 ml IH Q4 [facility] Last Admin: 05/25/18 23:50 Dose: Not Given Amlodipine Besylate (Norvasc) 5 mg PO DAILY [facility] Last Admin: 05/25/18 09:29 Dose: 5 mg Aspirin (Ecotrin) 81 mg PO DAILY [facility] Last Admin: 05/25/18 09:34 Dose: 81 mg Cinacalcet (Sensipar) 30 mg PO DAILY [facility] Last Admin: 05/25/18 09:34 Dose: 30 mg Clopidogrel Bisulfate (Plavix) 75 mg PO DAILY [facility] Last Admin: 05/25/18 09:28 Dose: 75 mg Docusate Sodium (Colace) 100 mg PO DAILY [facility] Last Admin: 05/25/18 09:29 Dose: 100 mg Epoetin Kevin (Procrit) 10,000 unit IV [place] Famotidine (Pepcid) 20 mg PO DAILY [facility] Last Admin: 05/25/18 09:29 Dose: 20 mg Gabapentin (Neurontin) 100 mg PO DAILY [facility] Last Admin: 05/25/18 09:29 Dose: 100 mg Heparin Sodium (Porcine) (Heparin) 5,000 units SC Q8 [facility] Last Admin: 05/25/18 05:39 Dose: 5,000 units Dextrose (Dextrose 10% In Water) 1,000 mls @ 30 mls/hr IV .Q24H [facility] Last Admin: 05/25/18 13:19 Dose: 30 mls/hr Lactulose (Enulose) 10 gm PO DAILY PRN PRN Reason: Constipation Magnesium Hydroxide (Milk Of Magnesia) 30 ml PO DAILY PRN PRN Reason: Constipation Metoclopramide HCl (Reglan) 10 mg PO ACHS [facility] Last Admin: 05/25/18 21:35 Dose: 10 mg Metoprolol Tartrate (Lopressor) 50 mg PO BID [facility] Last Admin: 05/25/18 17:51 Dose: 50 mg Morphine Sulfate (Morphine) 2 mg IVP Q6H PRN PRN Reason: Pain, severe (8-10) Last Admin: 05/25/18 16:11 Dose: 2 mg Multivitamins (Hexavitamin) 1 tab PO DAILY [facility] Last Admin: 05/25/18 09:28 Dose: 1 tab Rosuvastatin Calcium (Crestor) 10 mg PO HS [facility] Last Admin: 05/25/18 21:35 Dose: 10 mg Fluticasone/Salmeterol (Advair Diskus 250/50) 1 puff INH RQD [facility] Last Admin: 05/25/18 08:14 Dose: 1 puff Sertraline HCl (Zoloft) 50 mg PO DAILY [facility] Last Admin: 05/25/18 09:29 Dose: 50 mg Sevelamer Carbonate (Renvela) 800 mg PO TID [facility] Last Admin: 05/25/18 17:51 Dose: 800 mg Tramadol HCl (Ultram) 50 mg PO TID PRN PRN Reason: Pain, moderate (4-7) Last Admin: 05/25/18 09:29 Dose: 50 mg - Labs Labs: 05/22/18 07:53 05/22/18 09:21 PT 14.4 SECONDS (9.7-12.2) H 05/23/18 18:44 INR 1.3 05/23/18 18:44 APTT 49 SECONDS (21-34) H 05/23/18 18:44 Assessment and Plan - Assessment and Plan (Free Text) Plan: Hemodialysis Off the antibiotic Follow-up with the renal Follow-up with the pulmonary Sensipar DuoNeb Metoprolol Morphine All other ordered
[2018-05-26] MEDS: Albuterol-Ipratrop 3 mg / 0.5 (3 ml) UD IH SCH ×5 (03:20→20:05)
[2018-05-26 08:22] LABS: BASO # 0.1 K/uL (0.0-0.2); BASO % 1.2 % (0.0-2.0); EOS # 0.4 K/uL (0.0-0.7); EOS % 4.2 % (0.0-4.0); HEMOGLOBIN 8.6 g/dL (11.0-16.0); LYMPH % 11.4 % (20.0-40.0); MEAN CELL VOLUME 86.8 fL (81.0-99.0); MEAN CORPUSCULAR HEMOGLOBIN 28.8 pg (27.0-31.0); MEAN CORPUSCULAR HGB CONC 33.1 g/dL (33.0-37.0); MEAN PLATELET VOLUME 10.3 fL (7.2-11.7); MONO # 1.4 K/uL (0.0-0.8); MONO % 16.6 % (0.0-10.0); NEUT # 5.6 K/uL (1.8-7.0); NEUT % 66.6 % (50.0-75.0); NRBC % 0.1 % (0.0-2.0); RED CELL DISTRIBUTION WIDTH 15.8 % (11.5-14.5); WHITE BLOOD COUNT 8.4 K/uL (4.8-10.8)
[2018-05-26] MEDS: Fluticasone-Salmeterol 250-50mcg Diskus INH SCH (08:38)
[2018-05-26] MEDS: Multiple Vitamins Tab PO SCH (10:51)
[2018-05-26] MEDS: Epoetin Alfa 10,000 unit/ml Dialysis IV SCH (10:57)
--- NOTE | 2018-05-26 11:45 | CP.PCM.PN ---
Subjective - Date & Time of Evaluation Date of Evaluation: 05/26/18 Time of Evaluation: 11:43 - Subjective Subjective: alert; seen at dialysis trying to UF 3300ml- so far BP maintained BP controlled TSat=23% on EPO only c/o labile BSs less dyspneic Objective - Vital Signs/Intake and Output Vital Signs (last 24 hours): Temp Pulse Resp BP Pulse Ox 97.5 F L 80 18 139/86 95 05/26/18 10:00 05/26/18 10:00 05/26/18 10:00 05/26/18 11:30 05/26/18 10:00 Intake and Output: 05/26/18 05/26/18 06:59 18:59 Intake Total 290 Balance 290 - Medications Medications: Current Medications Acetaminophen (Tylenol 325mg Tab) 325 mg PO Q4 PRN PRN Reason: Pain, Mild (1-3) Albuterol/Ipratropium (Duoneb 3 Mg/0.5 Mg (3 Ml) Ud) 3 ml IH Q4 [facility] Last Admin: 05/26/18 08:38 Dose: 3 ml Amlodipine Besylate (Norvasc) 5 mg PO DAILY [facility] Last Admin: 05/26/18 10:52 Dose: Not Given Aspirin (Ecotrin) 81 mg PO DAILY [facility] Last Admin: 05/26/18 10:51 Dose: Not Given Cinacalcet (Sensipar) 30 mg PO DAILY [facility] Last Admin: 05/26/18 10:53 Dose: Not Given Clopidogrel Bisulfate (Plavix) 75 mg PO DAILY [facility] Last Admin: 05/26/18 10:52 Dose: Not Given Docusate Sodium (Colace) 100 mg PO DAILY [facility] Last Admin: 05/26/18 10:51 Dose: Not Given Epoetin Kevin (Procrit) 10,000 unit IV MWF [facility] Last Admin: 05/26/18 10:57 Dose: 10,000 unit Famotidine (Pepcid) 20 mg PO DAILY [facility] Last Admin: 05/26/18 10:52 Dose: Not Given Gabapentin (Neurontin) 100 mg PO DAILY [facility] Last Admin: 05/26/18 10:51 Dose: Not Given Heparin Sodium (Porcine) (Heparin) 5,000 units SC Q8 [facility] Last Admin: 05/25/18 05:39 Dose: 5,000 units Dextrose (Dextrose 10% In Water) 1,000 mls @ 30 mls/hr IV .Q24H [facility] Last Admin: 05/26/18 10:51 Dose: Not Given Lactulose (Enulose) 10 gm PO DAILY PRN PRN Reason: Constipation Magnesium Hydroxide (Milk Of Magnesia) 30 ml PO DAILY PRN PRN Reason: Constipation Metoclopramide HCl (Reglan) 10 mg PO ACHS [facility] Last Admin: 05/26/18 07:30 Dose: Not Given Metoprolol Tartrate (Lopressor) 50 mg PO BID [facility] Last Admin: 05/26/18 10:51 Dose: Not Given Morphine Sulfate (Morphine) 2 mg IVP Q6H PRN PRN Reason: Pain, severe (8-10) Last Admin: 05/26/18 02:13 Dose: 2 mg Multivitamins (Hexavitamin) 1 tab PO DAILY [facility] Last Admin: 05/26/18 10:51 Dose: Not Given Rosuvastatin Calcium (Crestor) 10 mg PO HS [facility] Last Admin: 05/25/18 21:35 Dose: 10 mg Fluticasone/Salmeterol (Advair Diskus 250/50) 1 puff INH RQD [facility] Last Admin: 05/26/18 08:38 Dose: 1 puff Sertraline HCl (Zoloft) 50 mg PO DAILY [facility] Last Admin: 05/26/18 10:53 Dose: Not Given Sevelamer Carbonate (Renvela) 800 mg PO TID [facility] Last Admin: 05/26/18 10:53 Dose: Not Given Tramadol HCl (Ultram) 50 mg PO TID PRN PRN Reason: Pain, moderate (4-7) Last Admin: 05/25/18 09:29 Dose: 50 mg - Labs Labs: 05/26/18 08:02 05/22/18 09:21 PT 14.4 SECONDS (9.7-12.2) H 05/23/18 18:44 INR 1.3 05/23/18 18:44 APTT 49 SECONDS (21-34) H 05/23/18 18:44 - Constitutional Appears: No Acute Distress, Chronically Ill - Head Exam Head Exam: ATRAUMATIC, NORMAL INSPECTION - Eye Exam Eye Exam: EOMI, Normal appearance - Neck Exam Neck Exam: Normal Inspection. absent: Tenderness - Respiratory Exam Respiratory Exam: Rhonchi, NORMAL BREATHING PATTERN - Cardiovascular Exam Cardiovascular Exam: REGULAR RHYTHM, +S1 - GI/Abdominal Exam GI & Abdominal Exam: Soft. absent: Tenderness - Extremities Exam Extremities Exam: Normal Inspection. absent: Tenderness - Neurological Exam Neurological Exam: Awake, CN II-XII Intact - Skin Skin Exam: Dry, Warm Assessment and Plan (1) Type 2 diabetes mellitus with diabetic nephropathy Status: Acute (2) End stage renal disease Status: Acute (3) CVA (cerebral vascular accident) Status: Acute (4) CHF exacerbation Status: Acute (5) Hypertension Status: Chronic - Assessment and Plan (Free Text) Plan: dialysis now and MWF Adequate UF continue EPO DM management
--- NOTE | 2018-05-26 16:07 | RAD ---
PROCEDURE: CHEST RADIOGRAPH, 1 VIEW HISTORY: sob COMPARISON: Chest radiograph dated 05/22/2018. FINDINGS: LUNGS: Stable dense peripheral right upper lobe consolidation versus fissural fluid. Pulmonary vascular congestion. PLEURA: Small right pleural effusion. No appreciable pneumothorax. CARDIOVASCULAR: Cardiomediastinal silhouette stably enlarged. OSSEOUS STRUCTURES: No significant abnormalities. VISUALIZED UPPER ABDOMEN: Normal. OTHER FINDINGS: None. IMPRESSION: Stable dense peripheral right upper lobe consolidation versus fissural fluid.
--- NOTE | 2018-05-26 20:50 | CP.PCM.PN ---
Subjective - Date & Time of Evaluation Date of Evaluation: 05/26/18 Time of Evaluation: 20:47 - Subjective Subjective: PT ALERT, LESS SOB., HAD HD. ROS ; OTHERWISE NEG. Objective - Vital Signs/Intake and Output Vital Signs (last 24 hours): Temp Pulse Resp BP Pulse Ox 97.8 F 98 H 20 141/88 100 05/26/18 16:09 05/26/18 16:09 05/26/18 16:09 05/26/18 16:09 05/26/18 16:09 Intake and Output: 05/26/18 05/27/18 18:59 06:59 Intake Total 240 Balance 240 - Medications Medications: Current Medications Acetaminophen (Tylenol 325mg Tab) 325 mg PO Q4 PRN PRN Reason: Pain, Mild (1-3) Albuterol/Ipratropium (Duoneb 3 Mg/0.5 Mg (3 Ml) Ud) 3 ml IH Q4 [facility] Last Admin: 05/26/18 20:05 Dose: 3 ml Amlodipine Besylate (Norvasc) 5 mg PO DAILY [facility] Last Admin: 05/26/18 10:52 Dose: Not Given Aspirin (Ecotrin) 81 mg PO DAILY [facility] Last Admin: 05/26/18 10:51 Dose: Not Given Cinacalcet (Sensipar) 30 mg PO DAILY [facility] Last Admin: 05/26/18 10:53 Dose: Not Given Clopidogrel Bisulfate (Plavix) 75 mg PO DAILY [facility] Last Admin: 05/26/18 10:52 Dose: Not Given Docusate Sodium (Colace) 100 mg PO DAILY [facility] Last Admin: 05/26/18 10:51 Dose: Not Given Epoetin Kevin (Procrit) 10,000 unit IV MWF [facility] Last Admin: 05/26/18 10:57 Dose: 10,000 unit Famotidine (Pepcid) 20 mg PO DAILY [facility] Last Admin: 05/26/18 10:52 Dose: Not Given Gabapentin (Neurontin) 100 mg PO DAILY [facility] Last Admin: 05/26/18 10:51 Dose: Not Given Heparin Sodium (Porcine) (Heparin) 5,000 units SC Q8 [facility] Last Admin: 05/25/18 05:39 Dose: 5,000 units Dextrose (Dextrose 10% In Water) 1,000 mls @ 30 mls/hr IV .Q24H [facility] Last Admin: 05/26/18 10:51 Dose: Not Given Lactulose (Enulose) 10 gm PO DAILY PRN PRN Reason: Constipation Magnesium Hydroxide (Milk Of Magnesia) 30 ml PO DAILY PRN PRN Reason: Constipation Metoclopramide HCl (Reglan) 10 mg PO ACHS [facility] Last Admin: 05/26/18 17:02 Dose: 10 mg Metoprolol Tartrate (Lopressor) 50 mg PO BID [facility] Last Admin: 05/26/18 17:01 Dose: 50 mg Multivitamins (Hexavitamin) 1 tab PO DAILY [facility] Last Admin: 05/26/18 10:51 Dose: Not Given Rosuvastatin Calcium (Crestor) 10 mg PO HS [facility] Last Admin: 05/25/18 21:35 Dose: 10 mg Fluticasone/Salmeterol (Advair Diskus 250/50) 1 puff INH RQD [facility] Last Admin: 05/26/18 08:38 Dose: 1 puff Sertraline HCl (Zoloft) 50 mg PO DAILY [facility] Last Admin: 05/26/18 10:53 Dose: Not Given Sevelamer Carbonate (Renvela) 800 mg PO TID [facility] Last Admin: 05/26/18 17:01 Dose: 800 mg Tramadol HCl (Ultram) 50 mg PO TID PRN PRN Reason: Pain, moderate (4-7) Last Admin: 05/25/18 09:29 Dose: 50 mg - Labs Labs: 05/26/18 08:02 05/22/18 09:21 PT 14.4 SECONDS (9.7-12.2) H 05/23/18 18:44 INR 1.3 05/23/18 18:44 APTT 49 SECONDS (21-34) H 05/23/18 18:44 - Constitutional Appears: Chronically Ill - Head Exam Head Exam: ATRAUMATIC, NORMOCEPHALIC - Eye Exam Eye Exam: EOMI, Normal appearance - ENT Exam ENT Exam: Mucous Membranes Moist - Respiratory Exam Respiratory Exam: Decreased Breath Sounds. absent: Accessory Muscle Use - Cardiovascular Exam Cardiovascular Exam: RRR, +S1, +S2 - GI/Abdominal Exam GI & Abdominal Exam: Soft. absent: Tenderness - Rectal Exam Rectal Exam: Deferred - Extremities Exam Extremities Exam: absent: Calf Tenderness, Pedal Edema - Back Exam Back Exam: absent: CVA tenderness (L), CVA tenderness (R) - Neurological Exam Neurological Exam: Alert, Awake, CN II-XII Intact, Oriented x3 Additional comments: LEFT HALLIE - Psychiatric Exam Psychiatric exam: Normal Mood - Skin Skin Exam: absent: Rash Assessment and Plan (1) COPD exacerbation Status: Acute (2) Respiratory failure Status: Acute (3) CHF exacerbation Status: Acute (4) CVA (cerebral vascular accident) Status: Acute (5) End stage renal disease Status: Acute (6) Type 2 diabetes mellitus with diabetic nephropathy Status: Acute (7) Anemia Status: Acute (8) Hypertension Status: Chronic - Assessment and Plan (Free Text) Assessment: RESP STATUS IMPROVING., CONT NEB BD., MONITOR O2 SAT. CXR REVIEWED., HD PER RENAL. INCREASE OOB. PROG GUARDED., DISCUSSED WITH STAFF.
[2018-05-27] MEDS: Albuterol-Ipratrop 3 mg / 0.5 (3 ml) UD IH SCH ×6 (00:47→20:48)
[2018-05-27] MEDS ORDERED: (Novolin R) Insulin Human Regular 100 units/ml vial SC ONE ×2 (02:09→06:48)
[2018-05-27] MEDS: Fluticasone-Salmeterol 250-50mcg Diskus INH SCH (07:51)
[2018-05-27 08:06] LABS: BASO # 0.1 K/uL (0.0-0.2); BASO % 0.8 % (0.0-2.0); EOS # 0.2 K/uL (0.0-0.7); EOS % 2.3 % (0.0-4.0); HEMOGLOBIN 8.2 g/dL (11.0-16.0); LYMPH # 1.1 K/uL (1.0-4.3); LYMPH % 12.3 % (20.0-40.0); MEAN CELL VOLUME 87.4 fL (81.0-99.0); MEAN CORPUSCULAR HEMOGLOBIN 28.9 pg (27.0-31.0); MEAN CORPUSCULAR HGB CONC 33.1 g/dL (33.0-37.0); MONO % 21.3 % (0.0-10.0); NEUT # 5.9 K/uL (1.8-7.0); NEUT % 63.3 % (50.0-75.0); PLATELET COUNT 291 K/uL (130-400); RBC 2.84 Mil/uL (3.80-5.20); RED CELL DISTRIBUTION WIDTH 15.7 % (11.5-14.5); WHITE BLOOD COUNT 9.3 K/uL (4.8-10.8)
--- NOTE | 2018-05-27 08:24 | CP.PCM.PN ---
Subjective - Date & Time of Evaluation Date of Evaluation: 05/27/18 Time of Evaluation: 08:23 - Subjective Subjective: seen and examined sob at baseline, unchanged no n/n/d/f/c/dizziness/cp bp stable improved labs noted Objective - Vital Signs/Intake and Output Vital Signs (last 24 hours): Temp Pulse Resp BP Pulse Ox 98.3 F 94 H 20 134/80 95 05/27/18 08:08 05/27/18 08:08 05/27/18 08:08 05/27/18 08:08 05/27/18 08:08 Intake and Output: 05/27/18 05/27/18 06:59 18:59 Intake Total 440 Balance 440 - Medications Medications: Current Medications Acetaminophen (Tylenol 325mg Tab) 325 mg PO Q4 PRN PRN Reason: Pain, Mild (1-3) Albuterol/Ipratropium (Duoneb 3 Mg/0.5 Mg (3 Ml) Ud) 3 ml IH Q4 [facility] Last Admin: 05/27/18 07:51 Dose: 3 ml Amlodipine Besylate (Norvasc) 5 mg PO DAILY [facility] Last Admin: 05/26/18 10:52 Dose: Not Given Aspirin (Ecotrin) 81 mg PO DAILY [facility] Last Admin: 05/26/18 10:51 Dose: Not Given Cinacalcet (Sensipar) 30 mg PO DAILY [facility] Last Admin: 05/26/18 10:53 Dose: Not Given Clopidogrel Bisulfate (Plavix) 75 mg PO DAILY [facility] Last Admin: 05/26/18 10:52 Dose: Not Given Docusate Sodium (Colace) 100 mg PO DAILY [facility] Last Admin: 05/26/18 10:51 Dose: Not Given Epoetin Kevin (Procrit) 10,000 unit IV MWF [facility] Last Admin: 05/26/18 10:57 Dose: 10,000 unit Famotidine (Pepcid) 20 mg PO DAILY [facility] Last Admin: 05/26/18 10:52 Dose: Not Given Gabapentin (Neurontin) 100 mg PO DAILY [facility] Last Admin: 05/26/18 10:51 Dose: Not Given Heparin Sodium (Porcine) (Heparin) 5,000 units SC Q8 [facility] Last Admin: 05/25/18 05:39 Dose: 5,000 units Lactulose (Enulose) 10 gm PO DAILY PRN PRN Reason: Constipation Magnesium Hydroxide (Milk Of Magnesia) 30 ml PO DAILY PRN PRN Reason: Constipation Metoclopramide HCl (Reglan) 10 mg PO ACHS [facility] Last Admin: 05/27/18 06:34 Dose: 10 mg Metoprolol Tartrate (Lopressor) 50 mg PO BID [facility] Last Admin: 05/26/18 17:01 Dose: 50 mg Morphine Sulfate (Morphine) 2 mg IVP Q6H PRN PRN Reason: Pain, severe (8-10) Multivitamins (Hexavitamin) 1 tab PO DAILY [facility] Last Admin: 05/26/18 10:51 Dose: Not Given Rosuvastatin Calcium (Crestor) 10 mg PO HS [facility] Last Admin: 05/26/18 21:24 Dose: 10 mg Fluticasone/Salmeterol (Advair Diskus 250/50) 1 puff INH RQD [facility] Last Admin: 05/27/18 07:51 Dose: 1 puff Sertraline HCl (Zoloft) 50 mg PO DAILY [facility] Last Admin: 05/26/18 10:53 Dose: Not Given Sevelamer Carbonate (Renvela) 800 mg PO TID [facility] Last Admin: 05/26/18 17:01 Dose: 800 mg Tramadol HCl (Ultram) 50 mg PO TID PRN PRN Reason: Pain, moderate (4-7) Last Admin: 05/26/18 21:24 Dose: 50 mg - Labs Labs: 05/27/18 08:15 05/22/18 09:21 PT 14.4 SECONDS (9.7-12.2) H 05/23/18 18:44 INR 1.3 05/23/18 18:44 APTT 49 SECONDS (21-34) H 05/23/18 18:44 - Constitutional Appears: No Acute Distress, Chronically Ill - Head Exam Head Exam: NORMAL INSPECTION, NORMOCEPHALIC - Eye Exam Eye Exam: Normal appearance, PERRL - ENT Exam ENT Exam: Mucous Membranes Moist, Normal Exam - Neck Exam Neck Exam: Normal Inspection - Respiratory Exam Respiratory Exam: Decreased Breath Sounds, NORMAL BREATHING PATTERN - Cardiovascular Exam Cardiovascular Exam: REGULAR RHYTHM, RRR - GI/Abdominal Exam GI & Abdominal Exam: Soft, Normal Bowel Sounds - Extremities Exam Extremities Exam: Normal Inspection Assessment and Plan (1) CHF exacerbation Status: Acute (2) COPD exacerbation Status: Acute (3) End stage renal disease Status: Acute (4) Respiratory failure Status: Acute (5) Type 2 diabetes mellitus with diabetic nephropathy Status: Acute (6) Anemia Status: Acute - Assessment and Plan (Free Text) Assessment: maintain hd mwf, adequate uf as tolerated marcie bp acceptable
[2018-05-27 09:06] LABS: ALB/GLOB RATIO 0.6 (1.0-2.1); ALBUMIN 3.6 g/dL (3.5-5.0); CALCIUM 8.1 mg/dl (8.6-10.4)
[2018-05-27] MEDS: Multiple Vitamins Tab PO SCH (10:32)
[2018-05-27 10:55] LABS: EOSINOPHIL 1 % (0-4); LYMPHOCYTE 10 % (20-40); NUCLEATED RED BLOOD CELL 1 % (0-0); TOTAL CELLS COUNTED 100
[2018-05-27 10:58] LABS: BANDS 2 % (0-2); MONOCYTE 15 % (0-10); MYELOCYTE 1 % (0-0); NEUTROPHIL 71 % (50-75)
[2018-05-27 10:59] LABS: ANISOCYTOSIS SLIGHT; HYPOCHROMIC SLIGHT; LARGE PLATELETS PRESENT; PLATELET ESTIMATE NORMAL (NORMAL)
[2018-05-27] MEDS ORDERED: (Novolin R) Insulin Human Regular 100 units/ml vial SC SCH (11:30)
--- NOTE | 2018-05-27 11:34 | CP.PCM.PN ---
Subjective - Date & Time of Evaluation Date of Evaluation: 05/27/18 Time of Evaluation: 11:31 - Subjective Subjective: PT ALERT, NO COUGH., LESS SOB. ROS ; OTHERWISE NEG. Objective - Vital Signs/Intake and Output Vital Signs (last 24 hours): Temp Pulse Resp BP Pulse Ox 98.3 F 94 H 20 134/80 95 05/27/18 08:08 05/27/18 08:08 05/27/18 08:08 05/27/18 08:08 05/27/18 08:08 Intake and Output: 05/27/18 05/27/18 06:59 18:59 Intake Total 440 Balance 440 - Medications Medications: Current Medications Acetaminophen (Tylenol 325mg Tab) 325 mg PO Q4 PRN PRN Reason: Pain, Mild (1-3) Albuterol/Ipratropium (Duoneb 3 Mg/0.5 Mg (3 Ml) Ud) 3 ml IH Q4 [facility] Last Admin: 05/27/18 07:51 Dose: 3 ml Amlodipine Besylate (Norvasc) 5 mg PO DAILY [facility] Last Admin: 05/27/18 10:32 Dose: 5 mg Aspirin (Ecotrin) 81 mg PO DAILY [facility] Last Admin: 05/27/18 10:33 Dose: 81 mg Cinacalcet (Sensipar) 30 mg PO DAILY [facility] Last Admin: 05/27/18 10:32 Dose: 30 mg Clopidogrel Bisulfate (Plavix) 75 mg PO DAILY [facility] Last Admin: 05/27/18 10:32 Dose: 75 mg Docusate Sodium (Colace) 100 mg PO DAILY [facility] Last Admin: 05/27/18 10:32 Dose: 100 mg Epoetin Kevin (Procrit) 10,000 unit IV MWF [facility] Last Admin: 05/26/18 10:57 Dose: 10,000 unit Famotidine (Pepcid) 20 mg PO DAILY [facility] Last Admin: 05/27/18 10:33 Dose: 20 mg Gabapentin (Neurontin) 100 mg PO DAILY [facility] Last Admin: 05/27/18 10:33 Dose: 100 mg Heparin Sodium (Porcine) (Heparin) 5,000 units SC Q8 [facility] Last Admin: 05/25/18 05:39 Dose: 5,000 units Insulin Glargine (Lantus) 10 unit SC HS [facility] Insulin Human Regular (Novolin R) 0 unit SC ACHS [facility] PRN Reason: Protocol Lactulose (Enulose) 10 gm PO DAILY PRN PRN Reason: Constipation Magnesium Hydroxide (Milk Of Magnesia) 30 ml PO DAILY PRN PRN Reason: Constipation Metoclopramide HCl (Reglan) 10 mg PO ACHS [facility] Last Admin: 05/27/18 10:33 Dose: 10 mg Metoprolol Tartrate (Lopressor) 50 mg PO BID [facility] Last Admin: 05/27/18 10:33 Dose: 50 mg Morphine Sulfate (Morphine) 2 mg IVP Q6H PRN PRN Reason: Pain, severe (8-10) Multivitamins (Hexavitamin) 1 tab PO DAILY [facility] Last Admin: 05/27/18 10:32 Dose: 1 tab Rosuvastatin Calcium (Crestor) 10 mg PO HS [facility] Last Admin: 05/26/18 21:24 Dose: 10 mg Fluticasone/Salmeterol (Advair Diskus 250/50) 1 puff INH RQD [facility] Last Admin: 05/27/18 07:51 Dose: 1 puff Sertraline HCl (Zoloft) 50 mg PO DAILY [facility] Last Admin: 05/27/18 10:33 Dose: 50 mg Sevelamer Carbonate (Renvela) 800 mg PO TID [facility] Last Admin: 05/27/18 10:33 Dose: 800 mg Tramadol HCl (Ultram) 50 mg PO TID PRN PRN Reason: Pain, moderate (4-7) Last Admin: 05/26/18 21:24 Dose: 50 mg - Labs Labs: 05/27/18 08:15 05/27/18 07:50 PT 14.4 SECONDS (9.7-12.2) H 05/23/18 18:44 INR 1.3 05/23/18 18:44 APTT 49 SECONDS (21-34) H 05/23/18 18:44 - Constitutional Appears: No Acute Distress, Chronically Ill - Head Exam Head Exam: ATRAUMATIC, NORMOCEPHALIC - Eye Exam Eye Exam: EOMI, Normal appearance - ENT Exam ENT Exam: Mucous Membranes Moist - Neck Exam Neck Exam: absent: Tenderness - Respiratory Exam Respiratory Exam: Decreased Breath Sounds. absent: Accessory Muscle Use - Cardiovascular Exam Cardiovascular Exam: RRR, +S1, +S2 - GI/Abdominal Exam GI & Abdominal Exam: Soft. absent: Tenderness - Rectal Exam Rectal Exam: Deferred - Extremities Exam Extremities Exam: absent: Calf Tenderness, Pedal Edema - Back Exam Back Exam: absent: CVA tenderness (L), CVA tenderness (R) - Neurological Exam Neurological Exam: Alert, Awake, CN II-XII Intact, Oriented x3 - Psychiatric Exam Psychiatric exam: Normal Affect - Skin Skin Exam: absent: Rash Assessment and Plan (1) COPD exacerbation Status: Acute (2) Respiratory failure Status: Acute (3) CHF exacerbation Status: Acute (4) CVA (cerebral vascular accident) Status: Acute (5) End stage renal disease Status: Acute (6) Type 2 diabetes mellitus with diabetic nephropathy Status: Acute (7) Anemia Status: Acute (8) Hypertension Status: Chronic - Assessment and Plan (Free Text) Assessment: RESP STATUS NO SIG CHANGE. CONT NEB BD., ADVAIR. PULM TOILET., MONITOR O2 SAT. CXR REVIEWED., FOR HD PER RENAL. PROG POOR., DISCUSSED WITH STAFF AT LENGTH.
--- NOTE | 2018-05-27 11:34 | CP.PCM.PN ---
Subjective - Date & Time of Evaluation Date of Evaluation: 05/27/18 Time of Evaluation: 08:45 - Subjective Subjective: clinically same Objective - Vital Signs/Intake and Output Vital Signs (last 24 hours): Temp Pulse Resp BP Pulse Ox 98.3 F 94 H 20 134/80 95 05/27/18 08:08 05/27/18 08:08 05/27/18 08:08 05/27/18 08:08 05/27/18 08:08 Intake and Output: 05/27/18 05/27/18 06:59 18:59 Intake Total 440 Balance 440 - Medications Medications: Current Medications Acetaminophen (Tylenol 325mg Tab) 325 mg PO Q4 PRN PRN Reason: Pain, Mild (1-3) Albuterol/Ipratropium (Duoneb 3 Mg/0.5 Mg (3 Ml) Ud) 3 ml IH Q4 [facility] Last Admin: 05/27/18 07:51 Dose: 3 ml Amlodipine Besylate (Norvasc) 5 mg PO DAILY [facility] Last Admin: 05/27/18 10:32 Dose: 5 mg Aspirin (Ecotrin) 81 mg PO DAILY [facility] Last Admin: 05/27/18 10:33 Dose: 81 mg Cinacalcet (Sensipar) 30 mg PO DAILY [facility] Last Admin: 05/27/18 10:32 Dose: 30 mg Clopidogrel Bisulfate (Plavix) 75 mg PO DAILY [facility] Last Admin: 05/27/18 10:32 Dose: 75 mg Docusate Sodium (Colace) 100 mg PO DAILY [facility] Last Admin: 05/27/18 10:32 Dose: 100 mg Epoetin Kevin (Procrit) 10,000 unit IV MWF [facility] Last Admin: 05/26/18 10:57 Dose: 10,000 unit Famotidine (Pepcid) 20 mg PO DAILY [facility] Last Admin: 05/27/18 10:33 Dose: 20 mg Gabapentin (Neurontin) 100 mg PO DAILY [facility] Last Admin: 05/27/18 10:33 Dose: 100 mg Heparin Sodium (Porcine) (Heparin) 5,000 units SC Q8 [facility] Last Admin: 05/25/18 05:39 Dose: 5,000 units Insulin Glargine (Lantus) 10 unit SC HS [facility] Insulin Human Regular (Novolin R) 0 unit SC ACHS [facility] PRN Reason: Protocol Lactulose (Enulose) 10 gm PO DAILY PRN PRN Reason: Constipation Magnesium Hydroxide (Milk Of Magnesia) 30 ml PO DAILY PRN PRN Reason: Constipation Metoclopramide HCl (Reglan) 10 mg PO ACHS [facility] Last Admin: 05/27/18 10:33 Dose: 10 mg Metoprolol Tartrate (Lopressor) 50 mg PO BID [facility] Last Admin: 05/27/18 10:33 Dose: 50 mg Morphine Sulfate (Morphine) 2 mg IVP Q6H PRN PRN Reason: Pain, severe (8-10) Multivitamins (Hexavitamin) 1 tab PO DAILY [facility] Last Admin: 05/27/18 10:32 Dose: 1 tab Rosuvastatin Calcium (Crestor) 10 mg PO HS [facility] Last Admin: 05/26/18 21:24 Dose: 10 mg Fluticasone/Salmeterol (Advair Diskus 250/50) 1 puff INH RQD [facility] Last Admin: 05/27/18 07:51 Dose: 1 puff Sertraline HCl (Zoloft) 50 mg PO DAILY [facility] Last Admin: 05/27/18 10:33 Dose: 50 mg Sevelamer Carbonate (Renvela) 800 mg PO TID [facility] Last Admin: 05/27/18 10:33 Dose: 800 mg Tramadol HCl (Ultram) 50 mg PO TID PRN PRN Reason: Pain, moderate (4-7) Last Admin: 05/26/18 21:24 Dose: 50 mg - Labs Labs: 05/27/18 08:15 05/27/18 07:50 PT 14.4 SECONDS (9.7-12.2) H 05/23/18 18:44 INR 1.3 05/23/18 18:44 APTT 49 SECONDS (21-34) H 05/23/18 18:44 - Constitutional Appears: Well - Head Exam Head Exam: ATRAUMATIC, NORMAL INSPECTION, NORMOCEPHALIC - Eye Exam Eye Exam: EOMI, Normal appearance, PERRL Pupil Exam: NORMAL ACCOMODATION, PERRL - ENT Exam ENT Exam: Mucous Membranes Moist, Normal Exam - Neck Exam Neck Exam: Full ROM, Normal Inspection. absent: Lymphadenopathy - Respiratory Exam Respiratory Exam: Decreased Breath Sounds - Cardiovascular Exam Cardiovascular Exam: REGULAR RHYTHM, +S1, +S2 - GI/Abdominal Exam GI & Abdominal Exam: Soft, Diminished Bowel Sounds - Rectal Exam Rectal Exam: Deferred Assessment and Plan - Assessment and Plan (Free Text) Plan: DuoNeb Plavix Gabapentin Heparin Protonix Metoclopramide Blood pressure improved shortness of breath at the baseline Follow-up with the pulmonary Maintain hemodialysis Saturday
[2018-05-27] MEDS: (Novolog) Insulin Aspart, Recombinant 100 u/ml 10 ml vial SC SCH ×3 (17:02→21:35)
[2018-05-27] MEDS ORDERED: (Lantus) Insulin Glargine, Recombinant SC SCH ×2 (22:00)
[2018-05-28] MEDS: Albuterol-Ipratrop 3 mg / 0.5 (3 ml) UD IH SCH ×6 (00:12→20:39)
--- NOTE | 2018-05-28 01:16 | CON ---
DATE: 05/27/2018 ENDOCRINOLOGY CONSULTATION LOCATION: Room 552. HISTORY OF PRESENT ILLNESS: This is a 42-year-old female with known history of type 2 insulin-requiring diabetes, using a variable dose of long-acting insulin and presenting here with generalized body weakness and supervening hypoglycemia with a glucose level of 34 noted in the emergency room and is being referred now for endocrine evaluation by the nurse practitioner, Carlos Eduardo . PAST MEDICAL HISTORY: As mentioned above, history of type 2 insulin-requiring diabetes, using Toujeo at 30 units once or twice daily at home with no recent home glucose monitoring undertaken thereof. History of hypertension and dyslipidemia, history of diabetic retinopathy, polyneuropathy and nephropathy with end-stage renal disease and dialysis dependence. History of cerebrovascular disease with residual left hemiparesis as noted, history of coronary artery disease and peripheral arterial disease and vasculopathy. She had previous admissions for congestive heart failure as noted, history of chronic obstructive lung disease with chronic bronchial asthma and also previous admissions for multiple exacerbations, history of chronic gastritis, history of chronic anemia as noted. FAMILY HISTORY: Positive for diabetes and hypertension. SOCIAL HISTORY: The patient has supportive family. No known substance use. REVIEW OF SYSTEMS: As mentioned above, admits to generalized body weakness with recent bouts of dizziness and lightheadedness, worst on the day of admission. She admits to increasing hypersomnolence and lethargy and easy fatigability and tiredness. No chest pain or palpitations, but admits to progressive shortness of breath especially on exertion. More over, she admits to productive cough with pleuritic chest pain, worse in the last two to three days prior to admission. Her oral intake has been variable with nausea, dyspepsia and vague upper abdominal pain with extremely valuable and nil oral intake especially in the last few days prior to admission. PHYSICAL EXAMINATION: GENERAL: This is an average built female in no apparent distress. VITAL SIGNS: With a blood pressure of 160/70, pulse of 100 beats per minute and regular, temperature 98, respirations 20. Height is 5 feet 6 inches. Weight is 147 pounds. HEENT: Head is normocephalic. Eyes are anicteric with pink conjunctivae. Funduscopy not possible at this time. Ears, nose, and throat otherwise normal. NECK: Supple. Thyroid gland is normal in size. No carotid bruits or cervical adenopathy. CARDIOPULMONARY: Some adynamic precordium. S1 and S2 are rapid and regular. LUNGS: Show scattered rhonchi. ABDOMEN: Flat, soft with positive bowel sounds. EXTREMITIES: No peripheral edema. Pulses are +2 bilaterally. LABORATORY DATA: Her chemistries today showed a BUN of 40, sodium 139, potassium 4.6, chloride 93, CO2 of 29, glucose 406 and creatinine 4.9. Her glucose levels have ranged from 322 to 346 and 484 mg/dL. Her alkaline phosphatase is 1390. ASSESSMENT: This is a 42-year-old female with uncontrolled and decompensated type 2 insulin-requiring diabetes, presenting here with symptomatic hypoglycemia and associated neuroglycopenic and hyperadrenergic manifestations from the same related to very variable and suboptimal meal portions, discontinued use of her basal insulin Toujeo given once or twice daily with no recent home glucose monitoring undertaken by the patient. She also has diabetic microvascular complications of retinopathy, polyneuropathy and nephropathy with end-stage renal disease and dialysis dependence. More over, she has diabetic macrovascular complications of cerebrovascular disease with residual left hemiparesis and coronary artery disease with previous admissions for congestive heart failure. She also has peripheral arterial disease and vasculopathy as noted. PLAN OF MANAGEMENT: As discussed with the patient and her family member at bedside. The imperative need for home glucose monitoring cannot back to emphasize especially with very variable and nil oral intake and the need to adjust her insulin regimen if she has very poor or suboptimal meal portions at home. At this time, we will modify her current insulin regimen because of supervening hyperglycemic accelerations as noted thereof, and we will start her on a basal and bolus insulin drug combination as given. We will start her with Lantus given as 20 units subcu at bedtime daily to start tonight. We will also start her with Novolog given as 8 units subcu t.i.d. before meals to start at dinner time today as ordered. We will titrate incrementally as indicated to optimize metabolic control. We will modify her coverage scale to obviate hypoglycemia and detailed orders have been given. We will obtain a hemoglobin A1c to confirm her prior glycemic control, and baseline thyroid function studies will be ordered. We will obtain serial chemistries and supplement accordingly as needed. We will follow the patient. Judith Hooks MD [facility] # [id number]
[2018-05-28] MEDS: Fluticasone-Salmeterol 250-50mcg Diskus INH SCH (08:00)
[2018-05-28] MEDS: (Novolog) Insulin Aspart, Recombinant 100 u/ml 10 ml vial SC SCH ×6 (08:16→22:10)
[2018-05-28] MEDS: Multiple Vitamins Tab PO SCH (10:09)
[2018-05-28] MEDS: Epoetin Alfa 10,000 unit/ml Dialysis IV SCH (10:38)
[2018-05-28 10:57] LABS: BASO # 0.1 K/uL (0.0-0.2); BASO % 0.5 % (0.0-2.0); EOS # 0.3 K/uL (0.0-0.7); EOS % 2.5 % (0.0-4.0); HEMOGLOBIN 7.8 g/dL (11.0-16.0); LYMPH # 1.1 K/uL (1.0-4.3); LYMPH % 9.4 % (20.0-40.0); MEAN CORPUSCULAR HEMOGLOBIN 27.9 pg (27.0-31.0); MEAN PLATELET VOLUME 9.5 fL (7.2-11.7); MONO # 1.7 K/uL (0.0-0.8); MONO % 14.3 % (0.0-10.0); NEUT # 8.6 K/uL (1.8-7.0); NEUT % 73.3 % (50.0-75.0); NRBC % 0.1 % (0.0-2.0); PLATELET COUNT 278 K/uL (130-400); RED CELL DISTRIBUTION WIDTH 15.6 % (11.5-14.5); WHITE BLOOD COUNT 11.8 K/uL (4.8-10.8)
[2018-05-28 11:16] LABS: ALB/GLOB RATIO 0.7 (1.0-2.1); ALBUMIN 3.6 g/dL (3.5-5.0); CALCIUM 8.1 mg/dl (8.6-10.4)
[2018-05-28 11:43] LABS: BANDS 1 % (0-2); BASOPHIL 1 % (0-2); EOSINOPHIL 14 % (0-4); LYMPHOCYTE 10 % (20-40); MONOCYTE 10 % (0-10); NEUTROPHIL 71 % (50-75); PLATELET ESTIMATE NORMAL (NORMAL); REACTIVE LYMPHOCYTES 1 % (0-0); TOTAL CELLS COUNTED 100
[2018-05-28 11:44] LABS: ANISOCYTOSIS SLIGHT; POIKILOCYTOSIS SLIGHT
[2018-05-28 11:45] LABS: HYPOCHROMIC MODERATE; LARGE PLATELETS PRESENT; OVALOCYTES SLIGHT
--- NOTE | 2018-05-28 11:53 | CP.PCM.PN ---
Subjective - Date & Time of Evaluation Date of Evaluation: 05/28/18 Time of Evaluation: 11:51 - Subjective Subjective: COVERING DR BERKOWITZ. PT ALERT, WEAK., LESS SOB., ROS; OTHERWISE NEG. Objective - Vital Signs/Intake and Output Vital Signs (last 24 hours): Temp Pulse Resp BP Pulse Ox 97.6 F 97 H 19 153/86 H 100 05/28/18 09:45 05/28/18 09:45 05/28/18 09:45 05/28/18 10:45 05/28/18 09:45 Intake and Output: 05/28/18 05/28/18 06:59 18:59 Intake Total 400 Balance 400 - Medications Medications: Current Medications Acetaminophen (Tylenol 325mg Tab) 325 mg PO Q4 PRN PRN Reason: Pain, Mild (1-3) Albuterol/Ipratropium (Duoneb 3 Mg/0.5 Mg (3 Ml) Ud) 3 ml IH Q4 [facility] Last Admin: 05/28/18 08:00 Dose: 3 ml Amlodipine Besylate (Norvasc) 5 mg PO DAILY [facility] Last Admin: 05/28/18 10:09 Dose: Not Given Aspirin (Ecotrin) 81 mg PO DAILY [facility] Last Admin: 05/28/18 10:08 Dose: Not Given Cinacalcet (Sensipar) 30 mg PO DAILY [facility] Last Admin: 05/28/18 10:09 Dose: Not Given Clopidogrel Bisulfate (Plavix) 75 mg PO DAILY [facility] Last Admin: 05/28/18 10:09 Dose: Not Given Docusate Sodium (Colace) 100 mg PO DAILY [facility] Last Admin: 05/28/18 10:08 Dose: Not Given Epoetin Kevin (Procrit) 10,000 unit IV MWF [facility] Last Admin: 05/28/18 10:38 Dose: 10,000 unit Famotidine (Pepcid) 20 mg PO DAILY [facility] Last Admin: 05/28/18 10:09 Dose: Not Given Gabapentin (Neurontin) 100 mg PO DAILY [facility] Last Admin: 05/28/18 10:09 Dose: Not Given Heparin Sodium (Porcine) (Heparin) 5,000 units SC Q8 [facility] Last Admin: 05/25/18 05:39 Dose: 5,000 units Insulin Aspart (Novolog) 8 unit SC AC [facility] Last Admin: 05/28/18 08:16 Dose: 8 units Insulin Aspart (Novolog) 0 unit SC [facility] Last Admin: 05/28/18 08:16 Dose: Not Given Insulin Glargine (Lantus) 20 unit SC [facility] Last Admin: 05/27/18 21:52 Dose: 20 units Lactulose (Enulose) 10 gm PO DAILY PRN PRN Reason: Constipation Magnesium Hydroxide (Milk Of Magnesia) 30 ml PO DAILY PRN PRN Reason: Constipation Metoclopramide HCl (Reglan) 10 mg PO [facility] Last Admin: 05/28/18 07:55 Dose: 10 mg Metoprolol Tartrate (Lopressor) 50 mg PO BID [facility] Last Admin: 05/28/18 10:09 Dose: Not Given Morphine Sulfate (Morphine) 2 mg IVP Q6H PRN PRN Reason: Pain, severe (8-10) Multivitamins (Hexavitamin) 1 tab PO DAILY [facility] Last Admin: 05/28/18 10:09 Dose: Not Given Rosuvastatin Calcium (Crestor) 10 mg PO [facility] Last Admin: 05/27/18 21:51 Dose: 10 mg Fluticasone/Salmeterol (Advair Diskus 250/50) 1 puff INH RQD [facility] Last Admin: 05/28/18 08:00 Dose: 1 puff Sertraline HCl (Zoloft) 50 mg PO DAILY [facility] Last Admin: 05/28/18 10:09 Dose: Not Given Sevelamer Carbonate (Renvela) 800 mg PO TID [facility] Last Admin: 05/28/18 10:09 Dose: Not Given Tramadol HCl (Ultram) 50 mg PO TID PRN PRN Reason: Pain, moderate (4-7) Last Admin: 05/26/18 21:24 Dose: 50 mg - Labs Labs: 05/28/18 10:53 05/28/18 10:53 PT 14.4 SECONDS (9.7-12.2) H 05/23/18 18:44 INR 1.3 05/23/18 18:44 APTT 49 SECONDS (21-34) H 05/23/18 18:44 - Constitutional Appears: Chronically Ill - Head Exam Head Exam: ATRAUMATIC, NORMOCEPHALIC - Eye Exam Eye Exam: EOMI, Normal appearance - ENT Exam ENT Exam: Mucous Membranes Moist - Neck Exam Neck Exam: absent: Tenderness - Respiratory Exam Respiratory Exam: Decreased Breath Sounds. absent: Accessory Muscle Use, Wheezes - Cardiovascular Exam Cardiovascular Exam: RRR, +S1, +S2 - GI/Abdominal Exam GI & Abdominal Exam: Soft. absent: Tenderness - Rectal Exam Rectal Exam: Deferred - Extremities Exam Extremities Exam: absent: Calf Tenderness, Pedal Edema - Back Exam Back Exam: absent: CVA tenderness (L), CVA tenderness (R) - Neurological Exam Neurological Exam: Alert, Awake, CN II-XII Intact, Oriented x3 Additional comments: ;LEFT HALLIE - Psychiatric Exam Psychiatric exam: Normal Affect, Normal Mood - Skin Skin Exam: absent: Rash Assessment and Plan (1) COPD exacerbation Status: Acute (2) Respiratory failure Status: Acute (3) CHF exacerbation Status: Acute (4) CVA (cerebral vascular accident) Status: Acute (5) End stage renal disease Status: Acute (6) Type 2 diabetes mellitus with diabetic nephropathy Status: Acute (7) Anemia Status: Acute (8) Hypertension Status: Chronic - Assessment and Plan (Free Text) Assessment: RESP STATUS NO SIG CHANGE. CONT PULM TOILET;, MONITOR O2 SAT. CXR REVIEWED. CT CHEST PENDING., HD IN PROGRESS. PROG GUARDED. DISCUSSED WITH STAFF.
--- NOTE | 2018-05-28 14:18 | CP.PCM.PN ---
Subjective - Date & Time of Evaluation Date of Evaluation: 05/28/18 Time of Evaluation: 14:16 - Subjective Subjective: stable dialysis today less SOB Hg remains low- on ESAs no new complaint Objective - Vital Signs/Intake and Output Vital Signs (last 24 hours): Temp Pulse Resp BP Pulse Ox 97.8 F 95 H 20 140/68 98 05/28/18 12:45 05/28/18 12:45 05/28/18 12:45 05/28/18 12:45 05/28/18 12:45 Intake and Output: 05/28/18 05/28/18 06:59 18:59 Intake Total 400 Balance 400 - Medications Medications: Current Medications Acetaminophen (Tylenol 325mg Tab) 325 mg PO Q4 PRN PRN Reason: Pain, Mild (1-3) Albuterol/Ipratropium (Duoneb 3 Mg/0.5 Mg (3 Ml) Ud) 3 ml IH Q4 [facility] Last Admin: 05/28/18 13:53 Dose: 3 ml Amlodipine Besylate (Norvasc) 5 mg PO DAILY [facility] Last Admin: 05/28/18 10:09 Dose: Not Given Aspirin (Ecotrin) 81 mg PO DAILY [facility] Last Admin: 05/28/18 10:08 Dose: Not Given Cinacalcet (Sensipar) 30 mg PO DAILY [facility] Last Admin: 05/28/18 10:09 Dose: Not Given Clopidogrel Bisulfate (Plavix) 75 mg PO DAILY [facility] Last Admin: 05/28/18 10:09 Dose: Not Given Docusate Sodium (Colace) 100 mg PO DAILY [facility] Last Admin: 05/28/18 10:08 Dose: Not Given Epoetin Kevin (Procrit) 10,000 unit IV MWF [facility] Last Admin: 05/28/18 10:38 Dose: 10,000 unit Famotidine (Pepcid) 20 mg PO DAILY [facility] Last Admin: 05/28/18 10:09 Dose: Not Given Gabapentin (Neurontin) 100 mg PO DAILY [facility] Last Admin: 05/28/18 10:09 Dose: Not Given Heparin Sodium (Porcine) (Heparin) 5,000 units SC Q8 [facility] Last Admin: 05/25/18 05:39 Dose: 5,000 units Insulin Aspart (Novolog) 0 unit SC ACHS [facility] Last Admin: 05/28/18 12:20 Dose: Not Given Insulin Aspart (Novolog) 4 unit SC AC [facility] Insulin Glargine (Lantus) 12 unit SC [facility] Lactulose (Enulose) 10 gm PO DAILY PRN PRN Reason: Constipation Magnesium Hydroxide (Milk Of Magnesia) 30 ml PO DAILY PRN PRN Reason: Constipation Metoclopramide HCl (Reglan) 10 mg PO ACHS [facility] Last Admin: 05/28/18 11:30 Dose: Not Given Metoprolol Tartrate (Lopressor) 50 mg PO BID [facility] Last Admin: 05/28/18 10:09 Dose: Not Given Morphine Sulfate (Morphine) 2 mg IVP Q6H PRN PRN Reason: Pain, severe (8-10) Multivitamins (Hexavitamin) 1 tab PO DAILY [facility] Last Admin: 05/28/18 10:09 Dose: Not Given Rosuvastatin Calcium (Crestor) 10 mg PO HS [facility] Last Admin: 05/27/18 21:51 Dose: 10 mg Fluticasone/Salmeterol (Advair Diskus 250/50) 1 puff INH RQD [facility] Last Admin: 05/28/18 08:00 Dose: 1 puff Sertraline HCl (Zoloft) 50 mg PO DAILY [facility] Last Admin: 05/28/18 10:09 Dose: Not Given Sevelamer Carbonate (Renvela) 800 mg PO TID [facility] Last Admin: 05/28/18 14:12 Dose: 800 mg Tramadol HCl (Ultram) 50 mg PO TID PRN PRN Reason: Pain, moderate (4-7) Last Admin: 05/26/18 21:24 Dose: 50 mg - Labs Labs: 05/28/18 10:53 05/28/18 10:53 PT 14.4 SECONDS (9.7-12.2) H 05/23/18 18:44 INR 1.3 05/23/18 18:44 APTT 49 SECONDS (21-34) H 05/23/18 18:44 - Constitutional Appears: No Acute Distress, Chronically Ill - Head Exam Head Exam: ATRAUMATIC, NORMAL INSPECTION - Eye Exam Eye Exam: EOMI, Normal appearance - Neck Exam Neck Exam: Normal Inspection. absent: Tenderness - Respiratory Exam Respiratory Exam: Clear to Ausculation Bilateral, NORMAL BREATHING PATTERN - Cardiovascular Exam Cardiovascular Exam: REGULAR RHYTHM, +S1 - GI/Abdominal Exam GI & Abdominal Exam: Soft. absent: Tenderness - Neurological Exam Neurological Exam: Alert, CN II-XII Intact - Skin Skin Exam: Dry, Warm Assessment and Plan (1) Type 2 diabetes mellitus with diabetic nephropathy Status: Acute (2) End stage renal disease Status: Acute (3) CVA (cerebral vascular accident) Status: Acute (4) CHF exacerbation Status: Acute (5) Hypertension Status: Chronic - Assessment and Plan (Free Text) Plan: dialysis MWF monitor HTN- stable now consider blood transfusion prbcs if Hg remains low
--- NOTE | 2018-05-28 15:41 | CT ---
Date of service: 05/28/2018 PROCEDURE: CT Chest without contrast HISTORY: r/o pleural effusion/pneumonia COMPARISON: CT chest dated 01/03/2018. TECHNIQUE: Contiguous axial images were obtained through the chest without intravenous contrast enhancement. Sagittal and coronal reconstructions were performed. Radiation dose (DLP): 495.7 mGy-cm. This CT exam was performed using one or more of the following dose reduction techniques: Automated exposure control, adjustment of the mA and/or kV according to patient size, and/or use of iterative reconstruction technique. FINDINGS: LUNGS: Bilateral lower lobe subsegmental atelectasis. . Visualized airway clear. MEDIASTINUM: Unremarkable thoracic aorta. No aneurysm. Cardiomegaly. Moderate pericardial effusion. Main pulmonary artery unremarkable. No vascular congestion. No lymphadenopathy. PLEURA: Small to moderate loculated right pleural effusion with fluid extending into both the minor and major fissures. No pneumothorax. BONES: No fracture. No destructive lesion. UPPER ABDOMEN: Trace perihepatic ascites. Infiltration of the upper abdominal fat planes may be secondary to mesenteric edema versus inflammatory change. OTHER FINDINGS: Fluid/debris in the esophagus. IMPRESSION: Small to moderate right loculated pleural effusion with extension of fluid into both the major and minor fissures. Moderate pericardial effusion. Trace perihepatic ascites. Infiltration of the upper abdominal fat planes may be secondary to mesenteric edema versus inflammatory change.
--- NOTE | 2018-05-28 17:07 | PN ---
DATE: 05/28/2018 ENDO FOLLOWUP NOTE LOCATION: In room 552. SUBJECTIVE: This is a 42-year-old female with recent uncontrolled type 2 insulin-requiring diabetes, presenting here with generalized body weakness and episodic bouts of hypoglycemic episodes with suboptimal meal portions and is now being followed closely for metabolic management. Her glycemic levels are fluctuating, also the glucose values are in the extremes of glycemic fluctuations from hypoglycemia to hyperglycemic accelerations as noted thereof. Her glucose levels overnight have ranged from 110 down to 55 mg/dL. Today's glucose levels have ranged from 68 to 206 mg/dL. Her hemoglobin A1c is 8.8%. The chemistries today showed a BUN of 54, sodium 140, potassium 4.9, chloride 93, CO2 of 29, glucose 245, creatinine 7.1 ASSESSMENT: This is a 42-year-old female with uncontrolled and decompensated type 2 insulin-requiring diabetes with extremes of glycemic fluctuations related to the intake, presenting initially with symptomatic hypoglycemia and supervening hyperglycemic accelerations as noted thereof. She also has diabetic microvascular complications of retinopathy, polyneuropathy and nephropathy with end-stage renal disease and dialysis dependence. She also has diabetic macrovascular complications of cerebrovascular disease with residual left-sided weakness and coronary artery disease and peripheral arterial disease and vasculopathy. PLAN OF MANAGEMENT: As discussed with the patient and staff, we will modify once again her basal and bolus insulin regimen and lower the Novolog to 4 units subcu t.i.d. before meals to start today as ordered. We will also titrate incrementally her basal insulin as indicated to optimize metabolic control. We will continue the low dose correction scale using NovoLog insulin to obviate hypoglycemia and detailed orders have been given. Moreover, we will also lower the basal insulin with Lantus to be given as 12 units subcu at bedtime daily to start tonight. We will titrate incrementally as indicated to optimize metabolic control. We will obtain serial chemistries and supplement accordingly as needed. We will follow. Judith Hooks MD
--- NOTE | 2018-05-28 20:39 | CP.PCM.PN ---
Subjective - Date & Time of Evaluation Date of Evaluation: 05/28/18 Time of Evaluation: 09:00 - Subjective Subjective: clinically same Objective - Vital Signs/Intake and Output Vital Signs (last 24 hours): Temp Pulse Resp BP Pulse Ox 98 F 112 H 20 157/94 H 99 05/28/18 16:00 05/28/18 16:00 05/28/18 16:00 05/28/18 16:00 05/28/18 16:00 - Medications Medications: Current Medications Acetaminophen (Tylenol 325mg Tab) 325 mg PO Q4 PRN PRN Reason: Pain, Mild (1-3) Albuterol/Ipratropium (Duoneb 3 Mg/0.5 Mg (3 Ml) Ud) 3 ml IH Q4 [facility] Last Admin: 05/28/18 16:07 Dose: 3 ml Amlodipine Besylate (Norvasc) 5 mg PO DAILY [facility] Last Admin: 05/28/18 10:09 Dose: Not Given Aspirin (Ecotrin) 81 mg PO DAILY [facility] Last Admin: 05/28/18 10:08 Dose: Not Given Cinacalcet (Sensipar) 30 mg PO DAILY [facility] Last Admin: 05/28/18 10:09 Dose: Not Given Clopidogrel Bisulfate (Plavix) 75 mg PO DAILY [facility] Last Admin: 05/28/18 10:09 Dose: Not Given Docusate Sodium (Colace) 100 mg PO DAILY [facility] Last Admin: 05/28/18 10:08 Dose: Not Given Epoetin Kevin (Procrit) 10,000 unit IV MWF [facility] Last Admin: 05/28/18 10:38 Dose: 10,000 unit Famotidine (Pepcid) 20 mg PO DAILY [facility] Last Admin: 05/28/18 10:09 Dose: Not Given Gabapentin (Neurontin) 100 mg PO DAILY [facility] Last Admin: 05/28/18 10:09 Dose: Not Given Heparin Sodium (Porcine) (Heparin) 5,000 units SC Q8 [facility] Last Admin: 05/25/18 05:39 Dose: 5,000 units Insulin Aspart (Novolog) 0 unit SC ACHS [facility] Last Admin: 05/28/18 17:10 Dose: Not Given Insulin Aspart (Novolog) 4 unit SC AC [facility] Last Admin: 05/28/18 17:10 Dose: 4 unit Insulin Glargine (Lantus) 12 unit SC HS [facility] Lactulose (Enulose) 10 gm PO DAILY PRN PRN Reason: Constipation Magnesium Hydroxide (Milk Of Magnesia) 30 ml PO DAILY PRN PRN Reason: Constipation Metoclopramide HCl (Reglan) 10 mg PO ACHS [facility] Last Admin: 05/28/18 17:20 Dose: 10 mg Metoprolol Tartrate (Lopressor) 50 mg PO BID [facility] Last Admin: 05/28/18 17:37 Dose: 50 mg Morphine Sulfate (Morphine) 2 mg IVP Q6H PRN PRN Reason: Pain, severe (8-10) Multivitamins (Hexavitamin) 1 tab PO DAILY [facility] Last Admin: 05/28/18 10:09 Dose: Not Given Rosuvastatin Calcium (Crestor) 10 mg PO [facility] Last Admin: 05/27/18 21:51 Dose: 10 mg Fluticasone/Salmeterol (Advair Diskus 250/50) 1 puff INH RQD [facility] Last Admin: 05/28/18 08:00 Dose: 1 puff Sertraline HCl (Zoloft) 50 mg PO DAILY [facility] Last Admin: 05/28/18 10:09 Dose: Not Given Sevelamer Carbonate (Renvela) 800 mg PO TID [facility] Last Admin: 05/28/18 17:36 Dose: 800 mg Tramadol HCl (Ultram) 50 mg PO TID PRN PRN Reason: Pain, moderate (4-7) Last Admin: 05/28/18 17:47 Dose: 50 mg - Labs Labs: 05/28/18 10:53 05/28/18 10:53 PT 14.4 SECONDS (9.7-12.2) H 05/23/18 18:44 INR 1.3 05/23/18 18:44 APTT 49 SECONDS (21-34) H 05/23/18 18:44 - Constitutional Appears: Well - Head Exam Head Exam: ATRAUMATIC, NORMAL INSPECTION, NORMOCEPHALIC - Eye Exam Eye Exam: EOMI, Normal appearance, PERRL Pupil Exam: NORMAL ACCOMODATION, PERRL - ENT Exam ENT Exam: Mucous Membranes Moist, Normal Exam - Neck Exam Neck Exam: Full ROM, Normal Inspection. absent: Lymphadenopathy - Respiratory Exam Respiratory Exam: Decreased Breath Sounds - Cardiovascular Exam Cardiovascular Exam: REGULAR RHYTHM, +S1, +S2 - GI/Abdominal Exam GI & Abdominal Exam: Soft, Diminished Bowel Sounds - Rectal Exam Rectal Exam: Deferred
[2018-05-28] MEDS ORDERED: (Lantus) Insulin Glargine, Recombinant SC SCH (22:00)
[2018-05-29] MEDS: Albuterol-Ipratrop 3 mg / 0.5 (3 ml) UD IH SCH ×4 (00:02→12:00)
[2018-05-29] MEDS: Fluticasone-Salmeterol 250-50mcg Diskus INH SCH (07:38)
[2018-05-29 07:50] LABS: BASO # 0.1 K/uL (0.0-0.2); BASO % 0.8 % (0.0-2.0); EOS # 0.2 K/uL (0.0-0.7); EOS % 2.3 % (0.0-4.0); HEMOGLOBIN 8.8 g/dL (11.0-16.0); LYMPH # 1.6 K/uL (1.0-4.3); LYMPH % 15.4 % (20.0-40.0); MEAN CELL VOLUME 86.9 fL (81.0-99.0); MEAN CORPUSCULAR HEMOGLOBIN 29.2 pg (27.0-31.0); MEAN CORPUSCULAR HGB CONC 33.6 g/dL (33.0-37.0); MEAN PLATELET VOLUME 9.4 fL (7.2-11.7); MONO # 1.9 K/uL (0.0-0.8); MONO % 18.8 % (0.0-10.0); NEUT # 6.3 K/uL (1.8-7.0); NEUT % 62.7 % (50.0-75.0); NRBC % 0.1 % (0.0-2.0); RBC 3.01 Mil/uL (3.80-5.20); RED CELL DISTRIBUTION WIDTH 15.6 % (11.5-14.5); WHITE BLOOD COUNT 10.1 K/uL (4.8-10.8)
[2018-05-29 08:01] LABS: ALB/GLOB RATIO 0.6 (1.0-2.1); ALBUMIN 3.5 g/dL (3.5-5.0); CALCIUM 8.4 mg/dl (8.6-10.4)
[2018-05-29 08:04] VITALS: BP 151/96; PULSE 97; RESP 20; TEMP 98.1; O2SAT 100
[2018-05-29] MEDS: (Novolog) Insulin Aspart, Recombinant 100 u/ml 10 ml vial SC SCH ×4 (08:25→12:28)
[2018-05-29] MEDS: Multiple Vitamins Tab PO SCH (09:57)
--- NOTE | 2018-05-29 11:21 | CP.PCM.PN ---
Subjective - Date & Time of Evaluation Date of Evaluation: 05/29/18 Time of Evaluation: 11:19 - Subjective Subjective: stable dialysis 05/28 feels better not SOB now labs stable Objective - Vital Signs/Intake and Output Vital Signs (last 24 hours): Temp Pulse Resp BP Pulse Ox 98.1 F 97 H 20 151/96 H 100 05/29/18 08:03 05/29/18 08:03 05/29/18 08:03 05/29/18 08:03 05/29/18 08:03 Intake and Output: 05/29/18 05/29/18 06:59 18:59 Intake Total 250 Balance 250 - Medications Medications: Current Medications Acetaminophen (Tylenol 325mg Tab) 325 mg PO Q4 PRN PRN Reason: Pain, Mild (1-3) Albuterol/Ipratropium (Duoneb 3 Mg/0.5 Mg (3 Ml) Ud) 3 ml IH Q4 [facility] Last Admin: 05/29/18 07:38 Dose: 3 ml Amlodipine Besylate (Norvasc) 5 mg PO DAILY [facility] Last Admin: 05/29/18 09:57 Dose: 5 mg Aspirin (Ecotrin) 81 mg PO DAILY [facility] Last Admin: 05/29/18 09:56 Dose: 81 mg Cinacalcet (Sensipar) 30 mg PO DAILY [facility] Last Admin: 05/29/18 09:59 Dose: 30 mg Clopidogrel Bisulfate (Plavix) 75 mg PO DAILY [facility] Last Admin: 05/29/18 09:57 Dose: 75 mg Docusate Sodium (Colace) 100 mg PO DAILY [facility] Last Admin: 05/29/18 09:56 Dose: 100 mg Epoetin Kevin (Procrit) 10,000 unit IV MWF [facility] Last Admin: 05/28/18 10:38 Dose: 10,000 unit Famotidine (Pepcid) 20 mg PO DAILY [facility] Last Admin: 05/29/18 09:57 Dose: 20 mg Gabapentin (Neurontin) 100 mg PO DAILY [facility] Last Admin: 05/29/18 09:57 Dose: 100 mg Heparin Sodium (Porcine) (Heparin) 5,000 units SC Q8 [facility] Last Admin: 05/25/18 05:39 Dose: 5,000 units Insulin Aspart (Novolog) 0 unit SC ACHS [facility] Last Admin: 05/29/18 08:25 Dose: Not Given Insulin Aspart (Novolog) 4 unit SC AC [facility] Last Admin: 05/29/18 08:29 Dose: 4 unit Insulin Glargine (Lantus) 12 unit SC HS [facility] Last Admin: 05/28/18 22:10 Dose: 12 unit Lactulose (Enulose) 10 gm PO DAILY PRN PRN Reason: Constipation Magnesium Hydroxide (Milk Of Magnesia) 30 ml PO DAILY PRN PRN Reason: Constipation Metoclopramide HCl (Reglan) 10 mg PO ACHS [facility] Last Admin: 05/29/18 08:29 Dose: 10 mg Metoprolol Tartrate (Lopressor) 50 mg PO BID [facility] Last Admin: 05/29/18 09:57 Dose: 50 mg Morphine Sulfate (Morphine) 2 mg IVP Q6H PRN PRN Reason: Pain, severe (8-10) Last Admin: 05/28/18 21:01 Dose: 2 mg Multivitamins (Hexavitamin) 1 tab PO DAILY [facility] Last Admin: 05/29/18 09:57 Dose: 1 tab Rosuvastatin Calcium (Crestor) 10 mg PO [facility] Last Admin: 05/28/18 21:15 Dose: 10 mg Fluticasone/Salmeterol (Advair Diskus 250/50) 1 puff INH RQD [facility] Last Admin: 05/29/18 07:38 Dose: 1 puff Sertraline HCl (Zoloft) 50 mg PO DAILY [facility] Last Admin: 05/29/18 09:57 Dose: 50 mg Sevelamer Carbonate (Renvela) 800 mg PO TID [facility] Last Admin: 05/29/18 09:57 Dose: 800 mg Tramadol HCl (Ultram) 50 mg PO TID PRN PRN Reason: Pain, moderate (4-7) Last Admin: 05/28/18 17:47 Dose: 50 mg - Labs Labs: 05/29/18 07:38 05/29/18 07:38 PT 14.4 SECONDS (9.7-12.2) H 05/23/18 18:44 INR 1.3 05/23/18 18:44 APTT 49 SECONDS (21-34) H 05/23/18 18:44 - Constitutional Appears: No Acute Distress, Chronically Ill - Head Exam Head Exam: ATRAUMATIC, NORMAL INSPECTION - Eye Exam Eye Exam: EOMI, Normal appearance - Neck Exam Neck Exam: Normal Inspection. absent: Tenderness - Respiratory Exam Respiratory Exam: Clear to Ausculation Bilateral, NORMAL BREATHING PATTERN - Cardiovascular Exam Cardiovascular Exam: REGULAR RHYTHM, +S1 - GI/Abdominal Exam GI & Abdominal Exam: Soft. absent: Tenderness - Extremities Exam Extremities Exam: Normal Inspection. absent: Tenderness - Neurological Exam Neurological Exam: Awake, CN II-XII Intact - Skin Skin Exam: Dry, Warm Assessment and Plan (1) Type 2 diabetes mellitus with diabetic nephropathy Status: Acute (2) End stage renal disease Status: Acute (3) CVA (cerebral vascular accident) Status: Acute (4) CHF exacerbation Status: Acute (5) Hypertension Status: Chronic - Assessment and Plan (Free Text) Plan: same dialysis MWF monitor HTN
--- NOTE | 2018-05-29 11:47 | CP.PCM.PN ---
Subjective - Date & Time of Evaluation Date of Evaluation: 05/29/18 Time of Evaluation: 11:44 - Subjective Subjective: PT ALERT, FEELS BETTER., LESS SOB AT REST. STILL WEAK. ROS; OTHERWISE NEG. Objective - Vital Signs/Intake and Output Vital Signs (last 24 hours): Temp Pulse Resp BP Pulse Ox 98.1 F 97 H 20 151/96 H 100 05/29/18 08:03 05/29/18 08:03 05/29/18 08:03 05/29/18 08:03 05/29/18 08:03 Intake and Output: 05/29/18 05/29/18 06:59 18:59 Intake Total 250 Balance 250 - Medications Medications: Current Medications Acetaminophen (Tylenol 325mg Tab) 325 mg PO Q4 PRN PRN Reason: Pain, Mild (1-3) Albuterol/Ipratropium (Duoneb 3 Mg/0.5 Mg (3 Ml) Ud) 3 ml IH Q4 [facility] Last Admin: 05/29/18 07:38 Dose: 3 ml Amlodipine Besylate (Norvasc) 5 mg PO DAILY [facility] Last Admin: 05/29/18 09:57 Dose: 5 mg Aspirin (Ecotrin) 81 mg PO DAILY [facility] Last Admin: 05/29/18 09:56 Dose: 81 mg Cinacalcet (Sensipar) 30 mg PO DAILY [facility] Last Admin: 05/29/18 09:59 Dose: 30 mg Clopidogrel Bisulfate (Plavix) 75 mg PO DAILY [facility] Last Admin: 05/29/18 09:57 Dose: 75 mg Docusate Sodium (Colace) 100 mg PO DAILY [facility] Last Admin: 05/29/18 09:56 Dose: 100 mg Epoetin Kevin (Procrit) 10,000 unit IV MWF [facility] Last Admin: 05/28/18 10:38 Dose: 10,000 unit Famotidine (Pepcid) 20 mg PO DAILY [facility] Last Admin: 05/29/18 09:57 Dose: 20 mg Gabapentin (Neurontin) 100 mg PO DAILY [facility] Last Admin: 05/29/18 09:57 Dose: 100 mg Heparin Sodium (Porcine) (Heparin) 5,000 units SC Q8 [facility] Last Admin: 05/25/18 05:39 Dose: 5,000 units Insulin Aspart (Novolog) 0 unit SC ACHS [facility] Last Admin: 05/29/18 08:25 Dose: Not Given Insulin Aspart (Novolog) 4 unit SC AC [facility] Last Admin: 05/29/18 08:29 Dose: 4 unit Insulin Glargine (Lantus) 12 unit SC [facility] Last Admin: 05/28/18 22:10 Dose: 12 unit Lactulose (Enulose) 10 gm PO DAILY PRN PRN Reason: Constipation Magnesium Hydroxide (Milk Of Magnesia) 30 ml PO DAILY PRN PRN Reason: Constipation Metoclopramide HCl (Reglan) 10 mg PO ACHS [facility] Last Admin: 05/29/18 08:29 Dose: 10 mg Metoprolol Tartrate (Lopressor) 50 mg PO BID [facility] Last Admin: 05/29/18 09:57 Dose: 50 mg Morphine Sulfate (Morphine) 2 mg IVP Q6H PRN PRN Reason: Pain, severe (8-10) Last Admin: 05/28/18 21:01 Dose: 2 mg Multivitamins (Hexavitamin) 1 tab PO DAILY [facility] Last Admin: 05/29/18 09:57 Dose: 1 tab Rosuvastatin Calcium (Crestor) 10 mg PO [facility] Last Admin: 05/28/18 21:15 Dose: 10 mg Fluticasone/Salmeterol (Advair Diskus 250/50) 1 puff INH RQD [facility] Last Admin: 05/29/18 07:38 Dose: 1 puff Sertraline HCl (Zoloft) 50 mg PO DAILY [facility] Last Admin: 05/29/18 09:57 Dose: 50 mg Sevelamer Carbonate (Renvela) 800 mg PO TID [facility] Last Admin: 05/29/18 09:57 Dose: 800 mg Tramadol HCl (Ultram) 50 mg PO TID PRN PRN Reason: Pain, moderate (4-7) Last Admin: 05/28/18 17:47 Dose: 50 mg - Labs Labs: 05/29/18 07:38 05/29/18 07:38 PT 14.4 SECONDS (9.7-12.2) H 05/23/18 18:44 INR 1.3 05/23/18 18:44 APTT 49 SECONDS (21-34) H 05/23/18 18:44 - Constitutional Appears: Chronically Ill - Head Exam Head Exam: ATRAUMATIC, NORMOCEPHALIC - Eye Exam Eye Exam: EOMI, Normal appearance - ENT Exam ENT Exam: Mucous Membranes Moist - Neck Exam Neck Exam: Normal Inspection - Respiratory Exam Respiratory Exam: Decreased Breath Sounds. absent: Accessory Muscle Use, Wheezes, Respiratory Distress - Cardiovascular Exam Cardiovascular Exam: RRR, +S1, +S2 - GI/Abdominal Exam GI & Abdominal Exam: Soft. absent: Tenderness - Rectal Exam Rectal Exam: Deferred - Extremities Exam Extremities Exam: absent: Calf Tenderness, Pedal Edema - Back Exam Back Exam: absent: CVA tenderness (L), CVA tenderness (R) - Neurological Exam Neurological Exam: Alert, Awake, CN II-XII Intact, Oriented x3 Additional comments: LEFT HALLIE - Psychiatric Exam Psychiatric exam: Normal Mood - Skin Skin Exam: absent: Rash Assessment and Plan (1) COPD exacerbation Status: Acute (2) Respiratory failure Status: Acute (3) CHF exacerbation Status: Acute (4) CVA (cerebral vascular accident) Status: Acute (5) End stage renal disease Status: Acute (6) Type 2 diabetes mellitus with diabetic nephropathy Status: Acute (7) Anemia Status: Acute (8) Hypertension Status: Chronic - Assessment and Plan (Free Text) Assessment: RESP STATUS SLOW IMPROVEMENT., CONT NEB BD., PULM TOILET., MONITOR O2 SAT. CT CHEST REVIEWED, +SMALL LOCULATED RIGHT PL EFF NOTED. S/P RIGHT CT DRAINAGE LAST ADM. CONT HD PER RENAL. INCREASE OOB. PROG POOR., DISCUSSED WITH STAFF AT LENGTH AND RENAL.
--- NOTE | 2018-05-29 13:56 | CP.PCM.PN ---
Subjective - Date & Time of Evaluation Date of Evaluation: 05/29/18 Time of Evaluation: 08:45 - Subjective Subjective: clinically same Objective - Vital Signs/Intake and Output Vital Signs (last 24 hours): Temp Pulse Resp BP Pulse Ox 98.1 F 97 H 20 151/96 H 100 05/29/18 08:03 05/29/18 08:03 05/29/18 08:03 05/29/18 08:03 05/29/18 08:03 Intake and Output: 05/29/18 05/29/18 06:59 18:59 Intake Total 250 Balance 250 - Medications Medications: Current Medications Acetaminophen (Tylenol 325mg Tab) 325 mg PO Q4 PRN PRN Reason: Pain, Mild (1-3) Albuterol/Ipratropium (Duoneb 3 Mg/0.5 Mg (3 Ml) Ud) 3 ml IH Q4 [facility] Last Admin: 05/29/18 12:00 Dose: Not Given Amlodipine Besylate (Norvasc) 5 mg PO DAILY [facility] Last Admin: 05/29/18 09:57 Dose: 5 mg Aspirin (Ecotrin) 81 mg PO DAILY [facility] Last Admin: 05/29/18 09:56 Dose: 81 mg Cinacalcet (Sensipar) 30 mg PO DAILY [facility] Last Admin: 05/29/18 09:59 Dose: 30 mg Clopidogrel Bisulfate (Plavix) 75 mg PO DAILY [facility] Last Admin: 05/29/18 09:57 Dose: 75 mg Docusate Sodium (Colace) 100 mg PO DAILY [facility] Last Admin: 05/29/18 09:56 Dose: 100 mg Epoetin Kevin (Procrit) 10,000 unit IV MWF [facility] Last Admin: 05/28/18 10:38 Dose: 10,000 unit Famotidine (Pepcid) 20 mg PO DAILY [facility] Last Admin: 05/29/18 09:57 Dose: 20 mg Gabapentin (Neurontin) 100 mg PO DAILY [facility] Last Admin: 05/29/18 09:57 Dose: 100 mg Heparin Sodium (Porcine) (Heparin) 5,000 units SC Q8 [facility] Last Admin: 05/25/18 05:39 Dose: 5,000 units Insulin Aspart (Novolog) 0 unit SC ACHS [facility] Last Admin: 05/29/18 12:27 Dose: 2 units Insulin Aspart (Novolog) 4 unit SC AC [facility] Last Admin: 05/29/18 12:28 Dose: 4 unit Insulin Glargine (Lantus) 12 unit SC HS [facility] Last Admin: 05/28/18 22:10 Dose: 12 unit Lactulose (Enulose) 10 gm PO DAILY PRN PRN Reason: Constipation Magnesium Hydroxide (Milk Of Magnesia) 30 ml PO DAILY PRN PRN Reason: Constipation Metoclopramide HCl (Reglan) 10 mg PO ACHS [facility] Last Admin: 05/29/18 08:29 Dose: 10 mg Metoprolol Tartrate (Lopressor) 50 mg PO BID [facility] Last Admin: 05/29/18 09:57 Dose: 50 mg Morphine Sulfate (Morphine) 2 mg IVP Q6H PRN PRN Reason: Pain, severe (8-10) Last Admin: 05/28/18 21:01 Dose: 2 mg Multivitamins (Hexavitamin) 1 tab PO DAILY [facility] Last Admin: 05/29/18 09:57 Dose: 1 tab Rosuvastatin Calcium (Crestor) 10 mg PO [facility] Last Admin: 05/28/18 21:15 Dose: 10 mg Fluticasone/Salmeterol (Advair Diskus 250/50) 1 puff INH RQD [facility] Last Admin: 05/29/18 07:38 Dose: 1 puff Sertraline HCl (Zoloft) 50 mg PO DAILY [facility] Last Admin: 05/29/18 09:57 Dose: 50 mg Sevelamer Carbonate (Renvela) 800 mg PO TID [facility] Last Admin: 05/29/18 09:57 Dose: 800 mg Tramadol HCl (Ultram) 50 mg PO TID PRN PRN Reason: Pain, moderate (4-7) Last Admin: 05/28/18 17:47 Dose: 50 mg - Labs Labs: 05/29/18 07:38 05/29/18 07:38 PT 14.4 SECONDS (9.7-12.2) H 05/23/18 18:44 INR 1.3 05/23/18 18:44 APTT 49 SECONDS (21-34) H 05/23/18 18:44 - Constitutional Appears: Well - Head Exam Head Exam: ATRAUMATIC, NORMAL INSPECTION, NORMOCEPHALIC - Eye Exam Eye Exam: EOMI, Normal appearance, PERRL Pupil Exam: NORMAL ACCOMODATION, PERRL - ENT Exam ENT Exam: Mucous Membranes Moist, Normal Exam - Neck Exam Neck Exam: Full ROM, Normal Inspection. absent: Lymphadenopathy - Respiratory Exam Respiratory Exam: Decreased Breath Sounds - Cardiovascular Exam Cardiovascular Exam: REGULAR RHYTHM, +S1, +S2 - GI/Abdominal Exam GI & Abdominal Exam: Soft, Diminished Bowel Sounds - Rectal Exam Rectal Exam: Deferred
--- NOTE | 2018-05-29 20:17 | PN ---
DATE: 05/29/2018 ENDO FOLLOWUP NOTE LOCATION: In room #552. SUBJECTIVE: This is a 42-year-old female with recent uncontrolled type 2 insulin-requiring diabetes, presenting here with congestive heart failure and has now improved clinically and hemodynamically as noted thereof. She was also being followed closely for metabolic management because of extreme glycemic fluctuations from hypoglycemia to hyperglycemic accelerations depending on the viability of her oral intake. Her glucose levels today, in fact, have been fluctuating and much higher with glucose levels ranging from 282 to 349 mg/dL. Her latest chemistry showed a BUN of 36, sodium 140, potassium 4.5, chloride 97, CO2 of 29, glucose 269, and creatinine 5.0. Her alkaline phosphatase is 1195. ASSESSMENT: This is a 42-year-old female with uncontrolled and decompensated type 2 insulin-requiring diabetes, presenting here with congestive heart failure and fluid overload and is also being followed closely for metabolic management because of extremes of glycemic fluctuations as noted depending on the variability of her oral intake as mentioned. She also has diabetic microvascular complications of retinopathy, polyneuropathy, and nephropathy with end-stage renal disease and dialysis dependence. Moreover, she also has diabetic microvascular complications of cerebrovascular disease, coronary artery disease, peripheral arterial disease, and vasculopathy. PLAN OF MANAGEMENT: As discussed with the staff, we will modify once again her basal and bolus insulin regimen and increase the NovoLog to 6 units subcu t.i.d. before meals to start today. We will also increase the Lantus to 16 units subcu at bedtime daily to start tonight. We will titrate incrementally as indicated to optimize metabolic control. We will continue the low-dose correction scale using NovoLog insulin as given. She will follow with her medical doctors for outpatient and ongoing medical and diabetics followup. We will follow with you. Judith Hooks MD
== END 2018-05-29 14:33 | disposition home or self-care (01) | DRG 637 ==
LOC: C.ER 06:48 → C.9E 11:03 → C.5S 12:00 → OBSVTOIN 05-23 16:08
PROVIDERS: ADMIT Internal Medicine Critical Care Medicine; ATTEND Internal Medicine Critical Care Medicine
PROC: 5A1D70Z Performance of Urinary Filtration, Intermittent, Less than 6 Hours Per Day (ICD-10-PCS; 2018-05-23)
PROC: 5A1D70Z Performance of Urinary Filtration, Intermittent, Less than 6 Hours Per Day (ICD-10-PCS; 2018-05-26)
PROC: 30233N1 Transfusion of Nonautologous Red Blood Cells into Peripheral Vein, Percutaneous Approach (ICD-10-PCS; principal; 2018-05-28)
DX: E11.649 Type 2 diabetes mellitus with hypoglycemia without coma (principal); J96.00 Acute respiratory failure, unspecified whether with hypoxia or hypercapnia; J44.1 Chronic obstructive pulmonary disease with (acute) exacerbation; I69.354 Hemiplegia and hemiparesis following cerebral infarction affecting left non-dominant side; I13.2 Hypertensive heart and chronic kidney disease with heart failure and with stage 5 chronic kidney disease, or end stage renal disease; E11.22 Type 2 diabetes mellitus with diabetic chronic kidney disease; N18.6 End stage renal disease; I50.9 Heart failure, unspecified; Z99.2 Dependence on renal dialysis; E11.21 Type 2 diabetes mellitus with diabetic nephropathy; E11.319 Type 2 diabetes mellitus with unspecified diabetic retinopathy without macular edema; E11.42 Type 2 diabetes mellitus with diabetic polyneuropathy; E11.65 Type 2 diabetes mellitus with hyperglycemia; Z79.4 Long term (current) use of insulin; E78.5 Hyperlipidemia, unspecified; E11.51 Type 2 diabetes mellitus with diabetic peripheral angiopathy without gangrene; D64.9 Anemia, unspecified

== ENCOUNTER 2018-06-18 19:33 | Inpatient (IN) | payer MEDICARE, OTHER, MEDICAID ==
[2018-06-18 19:41] VITALS: BMI 22.8
[2018-06-18] MEDS ORDERED: Charcoal 50 gm/240 ml Susp PO STA (20:04)
[2018-06-18] MEDS ORDERED: Sodium Chloride 0.9% 1,000 ML IV ONE (20:05)
--- NOTE | 2018-06-18 20:07 | C.PDOC ---
Chief Complaint (Nursing): Psychiatric Evaluation Past Medical History Vital Signs: Last Vital Signs Temp 98.8 F 06/18/18 19:41 Pulse 94 H 06/18/18 19:41 Resp 18 06/18/18 19:41 BP 171/97 H 06/18/18 19:41 Pulse Ox 98 06/18/18 19:41 - Medical History PMH: Anemia, Asthma, COPD, Diabetes (IDDM), Gastritis, HTN, Hypercholesterolemia , End Stage Renal Disease, Chronic Kidney Disease Denies: Hyperthyroidism Surgical History: - [facility] Procedures (05/23/18) DILATION OF UPPER VEIN, PERCUTANEOUS APPROACH (01/18/18) DRAINAGE OF PERITONEAL CAVITY, PERCUTANEOUS APPROACH (01/18/18) DRAINAGE OF RIGHT PLEURAL CAVITY, PERC APPROACH, DIAGN (03/14/18) DRAINAGE OF RIGHT PLEURAL CAVITY, PERCUTANEOUS APPROACH (12/18/17) ESOPHAGOGASTRODUODENOSCOPY [EGD] W/CLOSED BIOPSY (06/18/15) EXCISION OF STOMACH, ENDO, DIAGN (09/02/16) INSERT INFUSION DEV IN R INT JUGULAR VEIN, PERC (01/18/18) INSERTION OF ENDOTRACHEAL AIRWAY INTO TRACHEA, VIA OPENING (01/18/18) OTHER SKIN & SUBQ I D (08/07/15) PERFORMANCE OF URINARY FILTRATION, MULTIPLE (09/02/16) PLAIN RADIOGRAPHY OF DIALYSIS SHUNT USING OTH CONTRAST (01/18/18) RESPIRATORY VENTILATION, 24-96 CONSECUTIVE HOURS (01/18/18) TRANSFUSE NONAUT RED BLOOD CELLS IN PERIPH VEIN, PERC (05/23/18) ULTRASONOGRAPHY OF LEFT UPPER EXTREMITY VEINS (09/02/16) ULTRASONOGRAPHY OF RIGHT JUGULAR VEINS, GUIDANCE (01/18/18) Family History: States: Unknown Family Hx - Social History Hx Tobacco Use: No Hx Alcohol Use: No Hx Substance Use: No - Immunization History Hx Tetanus Toxoid Vaccination: No Hx Influenza Vaccination: No Hx Pneumococcal Vaccination: No ED Course And Treatment O2 Sat by Pulse Oximetry: 98 Disposition - Disposition
--- NOTE | 2018-06-18 20:07 | C.PDOC ---
History Of Present Illness 43 y/o female with PMHx of ESRD (on Dialysis M,W,F) is brought to ED by ambulance for over dosing on clonidine. Patient states "I want to ." Denies any physical complaints. Chief Complaint (Nursing): Psychiatric Evaluation History Per: Patient History/Exam Limitations: no limitations Onset/Duration Of Symptoms: Hrs Current Symptoms Are (Timing): Still Present Suicide/Self Injury Attempted (Context): Ingestion (Clonidine) Associated Symptoms: Suicidal Thoughts, Suicidal Plan Involuntary Hold By: None Recent travel outside of the [place]: No Past Medical History Reviewed: Historical Data, Nursing Documentation, Vital Signs Vital Signs: Last Vital Signs Temp 98.6 F 06/18/18 21:48 Pulse 87 06/18/18 21:48 Resp 20 06/18/18 21:48 BP 156/93 H 06/18/18 21:48 Pulse Ox 98 06/18/18 21:52 - Medical History PMH: Anemia, Asthma, COPD, Diabetes (IDDM), Gastritis, HTN, Hypercholesterolemia , End Stage Renal Disease, Chronic Kidney Disease Surgical History: - [facility] Procedures (05/23/18) DILATION OF UPPER VEIN, PERCUTANEOUS APPROACH (01/18/18) DRAINAGE OF PERITONEAL CAVITY, PERCUTANEOUS APPROACH (01/18/18) DRAINAGE OF RIGHT PLEURAL CAVITY, PERC APPROACH, DIAGN (03/14/18) DRAINAGE OF RIGHT PLEURAL CAVITY, PERCUTANEOUS APPROACH (12/18/17) ESOPHAGOGASTRODUODENOSCOPY [EGD] W/CLOSED BIOPSY (06/18/15) EXCISION OF STOMACH, ENDO, DIAGN (09/02/16) INSERT INFUSION DEV IN R INT JUGULAR VEIN, PERC (01/18/18) INSERTION OF ENDOTRACHEAL AIRWAY INTO TRACHEA, VIA OPENING (01/18/18) OTHER SKIN & SUBQ I D (08/07/15) PERFORMANCE OF URINARY FILTRATION, MULTIPLE (09/02/16) PLAIN RADIOGRAPHY OF DIALYSIS SHUNT USING OTH CONTRAST (01/18/18) RESPIRATORY VENTILATION, 24-96 CONSECUTIVE HOURS (01/18/18) TRANSFUSE NONAUT RED BLOOD CELLS IN PERIPH VEIN, PERC (05/23/18) ULTRASONOGRAPHY OF LEFT UPPER EXTREMITY VEINS (09/02/16) ULTRASONOGRAPHY OF RIGHT JUGULAR VEINS, GUIDANCE (01/18/18) Family History: States: Unknown Family Hx - Social History Hx Tobacco Use: No Hx Alcohol Use: No Hx Substance Use: No - Immunization History Hx Tetanus Toxoid Vaccination: No Hx Influenza Vaccination: No Hx Pneumococcal Vaccination: No Review Of Systems Constitutional: Negative for: Fever, Chills Cardiovascular: Negative for: Chest Pain Gastrointestinal: Negative for: Nausea, Vomiting, Abdominal Pain, Diarrhea Skin: Negative for: Rash Neurological: Negative for: Weakness, Numbness Psych: Positive for: Suicidal ideation Physical Exam - Physical Exam Appears: Non-toxic, No Acute Distress, Other (Conscious; no injuries or trauma noted ) Skin: Normal Color, Warm, Dry, No Rash Head: Atraumatic, Normacephalic Eye(s): bilateral: Normal Inspection, PERRL, EOMI Nose: Normal, No Discharge Oral Mucosa: Moist Neck: Normal, Supple Chest: Symmetrical, No Tenderness Cardiovascular: Rhythm Regular, No Murmur Respiratory: Normal Breath Sounds, No Decreased Breath Sounds, No Rales, No Rhonchi, No Wheezing Gastrointestinal/Abdominal: Normal Exam, Soft, No Tenderness, No Distention Extremity: Normal ROM, No Pedal Edema, No Deformity, No Swelling Extremity: Bilateral: Atraumatic, Normal Color And Temperature, Normal ROM Pulses: Left Radial: Normal, Right Radial: Normal Neurological/Psych: Oriented x3, Normal Speech, Other (No focal deficits ) Gait: Steady ED Course And Treatment - Laboratory Results Result Diagrams: 06/18/18 20:13 06/18/18 20:13 ECG: Interpreted By Me, Viewed By Ut ECG Rhythm: Sinus Rhythm, ST/T Changes, Nonspecific Changes ECG Interpretation: No Acute Changes, Abnormal Interpretation Of ECG: NSR, Right axis deviation, nonspc ST-T abnormaliy - lateral leads, abnormal tracings Rate From EC O2 Sat by Pulse Oximetry: 98 (RA) Pulse Ox Interpretation: Normal - Other Rad CXR X-Ray: Viewed By Me, Read By Radiologist Interpretation: EXAM: XR Chest, 1 View. CLINICAL HISTORY: 43 years old, female; Condition or disease; Other: Overdose; Additional info: Overdose of clonidine. TECHNIQUE: Frontal view of the chest. COMPARISON: No relevant prior studies available. FINDINGS: Lungs: There is moderate right-sided perihilar interstitial prominence consistent with volume. overload or early congestive heart failure. The right base is obscured secondary to combination of. moderate effusion and atelectasis. Moderate right lung base effusion is present. Pleural space: Small pleural effusion is present in the left base. Moderate right -sided effusion. Heart: There is moderate cardiomegaly. Mediastinum: Unremarkable. Bones/joints: Unremarkable. IMPRESSION: Findings consistent with CHF and interstitial edema more pronounced on the right with moderate. right effusion and small left effusion. Medical Decision Making Medical Decision Making: Administered IV fluids and Actidose. Ordered EKG, CXR, blood work, and urinalysis. Crisis Notified. Disposition Discussed With Dr.: Bertha Walker Doctor Will See Patient In The: Hospital Counseled Patient/Family Regarding: Diagnosis - Disposition Disposition: HOSPITALIZED Disposition Time: 21:51 Condition: GUARDED Forms: Just [employer] (Libyan) - Clinical Impression Clinical Impression: Drug overdose, intentional, ESRD (end stage renal disease), Diabetes mellitus - Scribe Statement The provider has reviewed the documentation as recorded by the Tawanda Montes All medical record entries made by the Fransiscaibaashish were at my direction and personally dictated by me. I have reviewed the chart and agree that the record accurately reflects my personal performance of the history, physical exam, medical decision making, and the department course for this patient. I have also personally directed, reviewed, and agree with the discharge instructions and disposition.
[2018-06-18] MEDS ORDERED: Charcoal 50 gm/240 ml Susp ONE (20:14)
[2018-06-18 20:21] LABS: BASO # 0.1 K/uL (0.0-0.2); BASO % 0.9 % (0.0-2.0); EOS # 0.4 K/uL (0.0-0.7); EOS % 4.4 % (0.0-4.0); HEMOGLOBIN 8.9 g/dL (11.0-16.0); LYMPH # 1.3 K/uL (1.0-4.3); LYMPH % 15.9 % (20.0-40.0); MEAN CORPUSCULAR HEMOGLOBIN 27.4 pg (27.0-31.0); MEAN CORPUSCULAR HGB CONC 31.9 g/dL (33.0-37.0); MEAN PLATELET VOLUME 8.5 fL (7.2-11.7); MONO # 1.1 K/uL (0.0-0.8); MONO % 13.6 % (0.0-10.0); NEUT # 5.3 K/uL (1.8-7.0); NEUT % 65.2 % (50.0-75.0); NRBC % 0.1 % (0.0-2.0); RBC 3.25 Mil/uL (3.80-5.20); RED CELL DISTRIBUTION WIDTH 16.3 % (11.5-14.5); WHITE BLOOD COUNT 8.2 K/uL (4.8-10.8)
[2018-06-18 20:33] LABS: ABG ALLEN TEST POS; ARTERIAL BLOOD GAS HEMOGLOBIN 8.6 g/dL (11.7-17.4); ARTERIAL BLOOD GAS O2 SAT 97.2 % (95-98); ARTERIAL BLOOD GAS PCO2 45 mm/Hg (35-45); ARTERIAL BLOOD GAS PH 7.51 (7.35-7.45); ARTERIAL BLOOD GAS PO2 80 mm/Hg (80-100); ARTERIAL BLOOD GAS TCO2 37.3 mmol/L (22-28)
[2018-06-18 20:59] LABS: ALB/GLOB RATIO 0.6 (1.0-2.1); ALBUMIN 3.7 g/dL (3.5-5.0); ALT/SGPT 41 U/L (9-52); AST/SGOT 76 U/L (14-36); BLOOD UREA NITROGEN 20 mg/dL (7-17); CALCIUM 9.5 mg/dl (8.6-10.4); GFR AFRICAN-AMERICAN 19; GFR NON-AFRICAN AMERICAN 16
[2018-06-18] MEDS ORDERED: (Novolin R) Insulin Human Regular 100 units/ml vial SC ONE (21:06)
[2018-06-18] MEDS ORDERED: (Novolin R) Insulin Human Regular 100 units/ml vial ONE (21:15)
[2018-06-18 21:20] LABS: ACETAMINOPHEN < 10.0 ug/mL (10.0-30.0); SALICYLATE < 1.0 [, mg/dL 1]
--- NOTE | 2018-06-18 23:37 | CP.PCM.CON ---
History of Present Illness - History of Present Illness History of Present Illness: Chief complaint: Drug overdose HPI: 43-year-old female with recently diagnosed with end-stage renal disease on dialysis. Patient is in her usual status. Patient went for hemodialysis today. Post hemodialysis patient started taking clonidine 0.1 mg at least 15 tablets as per the patient. The emergency patient was evaluated by the ED attending, charcoal was given. Patient vital signs are currently stable. Because of the changes in the heartbeat and blood pressure secondary to the medication patient will be closely admitted to the ICU and monitored. Past medical history: Patient has end-stage renal disease diabetes and hypertension. Allergies no known drug allergy. Personal history nonsmoker nonalcoholic. Review of system: Comparing of no headache. Complaining of no chest pain, she is feeling well. But unclear etiology, patient started taking clonidine 0.1 mg 15 tablets at a time. She took it around 8 PM. But now having no chest pain or palpitation. She denies any other major active systemic symptoms. In the emergency room patient was given charcoal On examination: Vital signs stable. Minimal perspiration noted medial Chest good air entry bilaterally regular heart sound nontender abdomen no pedal edema TABLET TESTER alert awake oriented 3 no functional neurological deficit Patient's labs reviewed Nonspecific. Minimal anemia noted. Chest x-ray showing minimal haziness in the lung fowler Old CAT scan of the lungs are showing evidence of loculate or lung fluids Assessment and recommendation: 43-year-old female with a history of diabetes hypertension end-stage renal disease on dialysis. Decided dialysis today. Patient admitted with the drug overdose. Clonidine patient took 0.1 mg 15 tablets. Charcoal was given. Currently vital signs stable. Will closely monitor the vitals in the intensive care unit. Bill be needing dialysis soon. Closely monitor. DVT GI prophylaxis. Overall prognosis is guarded. Past Patient History - Infectious Disease Hx of Infectious Diseases: None - Past Medical History & Family History Past Medical History?: Yes - Past Social History Smoking Status: Never Smoked - CARDIAC Hx Hypercholesterolemia: Yes Hx Hypertension: Yes - PULMONARY Hx Asthma: Yes Hx Chronic Obstructive Pulmonary Disease (COPD): Yes - NEUROLOGICAL HX Cerebrovascular Accident: Yes (01/2016, left sided weakness) - HEENT Hx HEENT Problems: Yes Other/Comment: Wears Eyeglasses - RENAL Hx Chronic Kidney Disease: Yes - ENDOCRINE/METABOLIC Hx Hyperthyroidism: No - HEMATOLOGICAL/ONCOLOGICAL Hx Anemia: Yes - INTEGUMENTARY Hx Dermatological Problems: No - MUSCULOSKELETAL/RHEUMATOLOGICAL Hx Falls: No - GASTROINTESTINAL Hx Gastritis: Yes - GENITOURINARY/GYNECOLOGICAL Hx Genitourinary Disorders: No - PSYCHIATRIC Hx Substance Use: No - SURGICAL HISTORY Hx Surgeries: Yes Hx Section: Yes Other/Comment: Insertion Of HD Cath on the R Internal Jugular; left forearm graft for dialysis. - ANESTHESIA Hx Anesthesia: Yes Hx Anesthesia Reactions: No Hx Malignant Hyperthermia: No Meds Allergies/Adverse Reactions: Allergies Allergy/AdvReac Type Severity Reaction Status Date / Time No Known Allergies Allergy Verified 06/18/18 19:40 - Medications Medications: Current Medications Sodium Chloride (Sodium Chloride 0.9%) 1,000 mls @ 25 mls/hr IV .Q24H ONE Stop: 06/19/18 20:04 Last Admin: 06/18/18 20:08 Dose: 25 mls/hr Results - Vital Signs Recent Vital Signs: Last Vital Signs Temp 98.1 F 06/18/18 22:46 Pulse 82 06/18/18 22:46 Resp 20 06/18/18 22:46 BP 162/94 H 06/18/18 22:46 Pulse Ox 100 06/18/18 22:46 - Labs Result Diagrams: 06/18/18 20:13 06/18/18 20:13 Labs: Laboratory Results - last 24 hr 06/18/18 06/18/18 06/18/18 19:54 20:13 20:13 WBC 8.2 RBC 3.25 L Hgb 8.9 L Hct 27.9 L MCV 86.0 MCH 27.4 MCHC 31.9 L RDW 16.3 H Plt Count 289 MPV 8.5 Neut % (Auto) 65.2 Lymph % (Auto) 15.9 L Baxter % (Auto) 13.6 H Eos % (Auto) 4.4 H Baso % (Auto) 0.9 Neut # (Auto) 5.3 Lymph # (Auto) 1.3 Baxter # (Auto) 1.1 H Eos # (Auto) 0.4 Baso # (Auto) 0.1 Puncture Site pCO2 pO2 HCO3 ABG pH ABG Total CO2 ABG O2 Saturation ABG Base Excess ABG Hemoglobin ABG Carboxyhemoglobin POC ABG HHb (Measured) ABG Methemoglobin Bishop Test A-a O2 Difference Respiratory Index Hgb O2 Saturation Liter Flow FiO2 Sodium 142 Potassium 3.7 Chloride 93 L Carbon Dioxide 37 H Anion Gap 16 BUN 20 H Creatinine 3.2 H Est GFR ( Amer) 19 Est GFR (Non-Af Amer) 16 POC Glucose (mg/dL) 285 H Random Glucose 280 H Calcium 9.5 Total Bilirubin 1.4 H AST 76 H D ALT 41 Alkaline Phosphatase 1471 H Total Protein 10.2 H Albumin 3.7 Globulin 6.5 H Albumin/Globulin Ratio 0.6 L Salicylates Acetaminophen Alcohol, Quantitative < 10 06/18/18 06/18/18 20:25 20:37 WBC RBC Hgb Hct MCV MCH MCHC RDW Plt Count MPV Neut % (Auto) Lymph % (Auto) Baxter % (Auto) Eos % (Auto) Baso % (Auto) Neut # (Auto) Lymph # (Auto) Baxter # (Auto) Eos # (Auto) Baso # (Auto) Puncture Site Rradial pCO2 45 pO2 80 HCO3 34.0 H ABG pH 7.51 H ABG Total CO2 37.3 H ABG O2 Saturation 97.2 ABG Base Excess 11.7 H ABG Hemoglobin 8.6 L ABG Carboxyhemoglobin 2.0 H POC ABG HHb (Measured) 2.7 ABG Methemoglobin 0.8 Bihsop Test Pos A-a O2 Difference 63.0 Respiratory Index 0.8 Hgb O2 Saturation 94.5 L Liter Flow 2.0 FiO2 28.0 Sodium Potassium Chloride Carbon Dioxide Anion Gap BUN Creatinine Est GFR ( Amer) Est GFR (Non-Af Amer) POC Glucose (mg/dL) Random Glucose Calcium Total Bilirubin AST ALT Alkaline Phosphatase Total Protein Albumin Globulin Albumin/Globulin Ratio Salicylates < 1.0 Acetaminophen < 10.0 L Alcohol, Quantitative
[2018-06-19] MEDS: Albuterol-Ipratrop 3 mg / 0.5 (3 ml) UD IH SCH ×6 (00:30→19:50)
[2018-06-19 05:52] LABS: BASO # 0.1 K/uL (0.0-0.2); BASO % 1.2 % (0.0-2.0); EOS # 0.4 K/uL (0.0-0.7); HEMOGLOBIN 8.4 g/dL (11.0-16.0); LYMPH # 1.4 K/uL (1.0-4.3); LYMPH % 20.4 % (20.0-40.0); MEAN CELL VOLUME 85.9 fL (81.0-99.0); MEAN CORPUSCULAR HEMOGLOBIN 27.6 pg (27.0-31.0); MEAN CORPUSCULAR HGB CONC 32.1 g/dL (33.0-37.0); MONO % 15.4 % (0.0-10.0); NEUT # 3.8 K/uL (1.8-7.0); NRBC % 0.1 % (0.0-2.0); RBC 3.03 Mil/uL (3.80-5.20); RED CELL DISTRIBUTION WIDTH 15.8 % (11.5-14.5); WHITE BLOOD COUNT 6.7 K/uL (4.8-10.8)
[2018-06-19 06:28] LABS: ALB/GLOB RATIO 0.6 (1.0-2.1); ALBUMIN 3.5 g/dL (3.5-5.0); CALCIUM 9.1 mg/dl (8.6-10.4)
--- NOTE | 2018-06-19 08:42 | RAD ---
Date of service: 06/18/2018 PROCEDURE: CHEST RADIOGRAPH, 1 VIEW HISTORY: overdose of clonidine COMPARISON: CT chest from 05/28/2018. FINDINGS: LUNGS: The lungs are well inflated. There is right lower lobe airspace disease with air bronchogram. There is also moderate pulmonary venous congestion. PLEURA: There is redemonstration of right pleural effusion and loculated fluid in the fissures.No pneumothorax. Suspect left pleural effusion. CARDIOVASCULAR: There is mild cardiomegaly. OSSEOUS STRUCTURES: No significant abnormalities. VISUALIZED UPPER ABDOMEN: Normal. OTHER FINDINGS: None. IMPRESSION: Airspace disease in the right lower lobe with air bronchogram may represent developing pneumonia. Follow-up is advised. Redemonstration of right pleural effusion and loculated fluid in the fissures. Suspect small left pleural effusion.
--- NOTE | 2018-06-19 08:57 | CP.PCM.CON ---
History of Present Illness - History of Present Illness History of Present Illness: HPI: 43-year-old female with with end-stage renal disease on dialysis, HTN, DM 2, recurrent CHF. Patient s/p suicide attempt 06/18 at dialysis- took multiple clonidine tabs Patient went for hemodialysis 06/18 Post hemodialysis patient started taking clonidine 0.1 mg at least 15 tablets as per the patient. The emergency patient was evaluated by the ED attending, charcoal was given, pt vomited this up. Now more alert, vitals stable. Because of the changes in the heartbeat and blood pressure secondary to the medication patient will be in the ICU and monitored closely. Past medical history: Patient has end-stage renal disease diabetes and hypertension. Allergies no known drug allergy. Personal history nonsmoker nonalcoholic, no illicit drug use. Review of system: Comparing of no headache. Complaining of no chest pain, she is feeling well now PSH- left AV fistula Review of Systems - Constitutional Constitutional: Fatigue, Lethargy - EENT Eyes: absent: As Per HPI, Blind Spots, Blurred Vision, Change in Vision, Decreased Night Vision, Diplopia, Discharge, Dry Eye, Exophthalmos, Floaters, Irritation, Itchy Eyes, Loss of Peripheral Vision, Pain, Photophobia, Requires Corrective Lenses, Sees Flashes, Spots in Vision, Tunnel Vision, Other Visual Disturbances, Loss of Vision, Other Ears: absent: As Per HPI, Decreased Hearing, Ear Discharge, Ear Pain, Tinnitus, Abnormal Hearing, Disequilibrium, Dizziness, Other Nose/Mouth/Throat: absent: As Per HPI, Epistaxis, Nasal Congestion, Nasal Discharge, Nasal Obstruction, Nasal Trauma, Nose Pain, Post Nasal Drip, Sinus Pain, Sinus Pressure, Bleeding Gums, Change in Voice, Dental Pain, Dry Mouth, Dysphagia, Halitosis, Hoarsness, Lip Swelling, Mouth Lesions, Mouth Pain, Odynophagia, Sore Throat, Throat Swelling, Tongue Swelling, Facial Pain, Neck Pain, Neck Mass, Other - Cardiovascular Cardiovascular: Dyspnea on Exertion, Slow Heart Rate - Respiratory Respiratory: Dyspnea on Exertion - Gastrointestinal Gastrointestinal: Constipation - Genitourinary Genitourinary: As Per HPI - Musculoskeletal Musculoskeletal: Muscle Cramps, Muscle Weakness, Myalgias - Neurological Neurological: Weakness - Psychiatric Psychiatric: Depression, Hopelessness Past Patient History - Infectious Disease Hx of Infectious Diseases: None - Past Medical History & Family History Past Medical History?: Yes Past Family History: Reviewed and not pertinent - Past Social History Smoking Status: Never Smoked Chewing Tobacco Use: No Cigar Use: No Alcohol: None Drugs: Denies - CARDIAC Hx Hypercholesterolemia: Yes Hx Hypertension: Yes - PULMONARY Hx Asthma: Yes Hx Chronic Obstructive Pulmonary Disease (COPD): Yes - NEUROLOGICAL HX Cerebrovascular Accident: Yes (01/2016, left sided weakness) - HEENT Hx HEENT Problems: Yes Other/Comment: Wears Eyeglasses - RENAL Hx Chronic Kidney Disease: Yes - ENDOCRINE/METABOLIC Hx Hyperthyroidism: No - HEMATOLOGICAL/ONCOLOGICAL Hx Anemia: Yes - INTEGUMENTARY Hx Dermatological Problems: No - MUSCULOSKELETAL/RHEUMATOLOGICAL Hx Falls: No - GASTROINTESTINAL Hx Gastritis: Yes - GENITOURINARY/GYNECOLOGICAL Hx Genitourinary Disorders: No - PSYCHIATRIC Hx Substance Use: No - SURGICAL HISTORY Hx Surgeries: Yes Hx Section: Yes Other/Comment: Insertion Of HD Cath on the R Internal Jugular; left forearm graft for dialysis. - ANESTHESIA Hx Anesthesia: Yes Hx Anesthesia Reactions: No Hx Malignant Hyperthermia: No Meds Allergies/Adverse Reactions: Allergies Allergy/AdvReac Type Severity Reaction Status Date / Time No Known Allergies Allergy Verified 06/18/18 19:40 - Medications Medications: Current Medications Albuterol/Ipratropium (Duoneb 3 Mg/0.5 Mg (3 Ml) Ud) 3 ml IH RQ4 GUI Last Admin: 06/19/18 07:28 Dose: 3 ml Cinacalcet (Sensipar) 30 mg PO DAILY [facility] Clopidogrel Bisulfate (Plavix) 75 mg PO DAILY [facility] Epoetin Kevin (Procrit) 10,000 unit IV MWF [facility] Gabapentin (Neurontin) 100 mg PO DAILY [facility] Sodium Chloride (Sodium Chloride 0.9%) 1,000 mls @ 25 mls/hr IV .Q24H ONE Stop: 06/19/18 20:04 Last Admin: 06/18/18 20:08 Dose: 25 mls/hr Pantoprazole Sodium (Protonix Ec Tab) 40 mg PO DAILY [facility] Rosuvastatin Calcium (Crestor) 10 mg PO HS [facility] Sevelamer Carbonate (Renvela) 800 mg PO TID [facility] Physical Exam - Constitutional Appears: No Acute Distress, Chronically Ill - Head Exam Head Exam: ATRAUMATIC, NORMAL INSPECTION - Eye Exam Eye Exam: EOMI, Normal appearance - Neck Exam Neck exam: Positive for: Normal Inspection. Negative for: Tenderness - Respiratory Exam Respiratory Exam: Clear to Auscultation Bilateral, NORMAL BREATHING PATTERN - Cardiovascular Exam Cardiovascular Exam: REGULAR RHYTHM, +S1 - GI/Abdominal Exam GI & Abdominal Exam: Soft. absent: Tenderness - Extremities Exam Extremities exam: Positive for: normal inspection. Negative for: pedal edema - Neurological Exam Neurological exam: Alert, CN II-XII Intact - Skin Skin Exam: Dry, Warm Results - Vital Signs Recent Vital Signs: Last Vital Signs Temp 98.4 F 06/19/18 08:00 Pulse 88 06/19/18 08:08 Resp 17 06/19/18 08:08 BP 146/92 H 06/19/18 08:08 Pulse Ox 96 06/19/18 08:08 - Labs Result Diagrams: 06/19/18 05:39 06/19/18 05:39 Labs: Laboratory Results - last 24 hr 06/18/18 06/18/18 06/18/18 19:54 20:13 20:13 WBC 8.2 RBC 3.25 L Hgb 8.9 L Hct 27.9 L MCV 86.0 MCH 27.4 MCHC 31.9 L RDW 16.3 H Plt Count 289 MPV 8.5 Neut % (Auto) 65.2 Lymph % (Auto) 15.9 L Sequoyah % (Auto) 13.6 H Eos % (Auto) 4.4 H Baso % (Auto) 0.9 Neut # (Auto) 5.3 Lymph # (Auto) 1.3 Sequ[place]ah # (Auto) 1.1 H Eos # (Auto) 0.4 Baso # (Auto) 0.1 Puncture Site pCO2 pO2 HCO3 ABG pH ABG Total CO2 ABG O2 Saturation ABG Base Excess ABG Hemoglobin ABG Carboxyhemoglobin POC ABG HHb (Measured) ABG Methemoglobin Bishop Test A-a O2 Difference Respiratory Index Hgb O2 Saturation Liter Flow FiO2 Sodium 142 Potassium 3.7 Chloride 93 L Carbon Dioxide 37 H Anion Gap 16 BUN 20 H Creatinine 3.2 H Est GFR ( Amer) 19 Est GFR (Non-Af Amer) 16 POC Glucose (mg/dL) 285 H Random Glucose 280 H Calcium 9.5 Phosphorus Magnesium Total Bilirubin 1.4 H AST 76 H D ALT 41 Alkaline Phosphatase 1471 H Total Protein 10.2 H Albumin 3.7 Globulin 6.5 H Albumin/Globulin Ratio 0.6 L Salicylates Acetaminophen Alcohol, Quantitative < 10 06/18/18 06/18/18 06/19/18 20:25 20:37 05:39 WBC 6.7 RBC 3.03 L Hgb 8.4 L Hct 26.1 L MCV 85.9 MCH 27.6 MCHC 32.1 L RDW 15.8 H Plt Count 259 MPV 9.0 Neut % (Auto) 57.0 Lymph % (Auto) 20.4 Sequoyah % (Auto) 15.4 H Eos % (Auto) 6.0 H Baso % (Auto) 1.2 Neut # (Auto) 3.8 Lymph # (Auto) 1.4 Sequoyah # (Auto) 1.0 H Eos # (Auto) 0.4 Baso # (Auto) 0.1 Puncture Site Rradial pCO2 45 pO2 80 HCO3 34.0 H ABG pH 7.51 H ABG Total CO2 37.3 H ABG O2 Saturation 97.2 ABG Base Excess 11.7 H ABG Hemoglobin 8.6 L ABG Carboxyhemoglobin 2.0 H POC ABG HHb (Measured) 2.7 ABG Methemoglobin 0.8 Bishop Test Pos A-a O2 Difference 63.0 Respiratory Index 0.8 Hgb O2 Saturation 94.5 L Liter Flow 2.0 FiO2 28.0 Sodium Potassium Chloride Carbon Dioxide Anion Gap BUN Creatinine Est GFR ( Amer) Est GFR (Non-Af Amer) POC Glucose (mg/dL) Random Glucose Calcium Phosphorus Magnesium Total Bilirubin AST ALT Alkaline Phosphatase Total Protein Albumin Globulin Albumin/Globulin Ratio Salicylates < 1.0 Acetaminophen < 10.0 L Alcohol, Quantitative 06/19/18 06/19/18 05:39 07:36 WBC RBC Hgb Hct MCV MCH MCHC RDW Plt Count MPV Neut % (Auto) Lymph % (Auto) Sequoyah % (Auto) Eos % (Auto) Baso % (Auto) Neut # (Auto) Lymph # (Auto) [place]ah # (Auto) Eos # (Auto) Baso # (Auto) Puncture Site pCO2 pO2 HCO3 ABG pH ABG Total CO2 ABG O2 Saturation ABG Base Excess ABG Hemoglobin ABG Carboxyhemoglobin POC ABG HHb (Measured) ABG Methemoglobin Bishop Test A-a O2 Difference Respiratory Index Hgb O2 Saturation Liter Flow FiO2 Sodium 143 Potassium 3.3 L Chloride 96 L Carbon Dioxide 32 H Anion Gap 19 BUN 22 H Creatinine 3.7 H Est GFR ( Amer) 16 Est GFR (Non-Af Amer) 13 POC Glucose (mg/dL) 97 Random Glucose 94 Calcium 9.1 Phosphorus 4.0 Magnesium 2.1 Total Bilirubin 1.1 AST 58 H D ALT 37 Alkaline Phosphatase 1113 H Total Protein 9.5 H Albumin 3.5 Globulin 6.0 H Albumin/Globulin Ratio 0.6 L Salicylates Acetaminophen Alcohol, Quantitative Assessment & Plan (1) Type 2 diabetes mellitus with diabetic nephropathy Status: Acute (2) Essential (primary) hypertension Status: Acute (3) CHF (congestive heart failure) Status: Acute (4) Suicide attempt Status: Acute (5) End stage renal disease Status: Acute - Assessment and Plan (Free Text) Plan: Psych monitoring Monitor BP, HR Dialysis MWF
[2018-06-19] MEDS ORDERED: Pantoprazole 40 mg EC Tab PO SCH (10:00)
--- NOTE | 2018-06-19 12:16 | PCM.PSYCH ---
Initial Psychiatric Evaluation - Initial Psychiatric Evaluation Type of Admission: Voluntary Legal Status: Capacity Chief Complaint (in patient's own words): "I want to kill myself" History of Present Illness and Precipitating Events: Pt is seen, chart reviewed, case discussed with staff. Pt is a 43 y/o AAF, single with a grown daughter that presented to the ER after trying to overdose on 15 tablets of Clonidine. She told her mother, whom she lives with, what she did which is when she called an ambulance for her. Pt says that she still has thoughts of killing herself currently. Pt states that she has had suicidal ideations for the past week, states that there was no specific trigger, just that she's "tired of being sick." She says that she has been on dialysis for past 2 years, has diabetes since she was in her 20s, HTN, and CHF. She reports depressed mood, feelings of hopelessness and helplessness. Hoever sge denies any AVH or any paranoia. Pt denies using tobacco , drugs, and alcohol. Pt walks with a walker. Past medical hx: (dialysis, diabetes, HTN, CHF) Past psych hx: denies any psych hx, denies anxiety, mind-racing, (+) for hopelessness Pt denies, auditory and visual hallucinations, thoughts of hurting others, N/V/D , abd pain, chills and fever. Positive for headache which she describes as wrapping around her head. Normal appetite Current Medications: Active Medications Generic Name Dose Route Start Last Admin Trade Name Freq PRN Reason Stop Dose Admin Albuterol/Ipratropium 3 ml 06/19/18 00:00 06/19/18 11:09 Duoneb 3 Mg/0.5 Mg (3 Ml) Ud IH 3 ml RQ4 GUI Administration Amlodipine Besylate 5 mg 06/20/18 10:00 Norvasc PO DAILY GUI Cinacalcet 30 mg 06/19/18 10:00 06/19/18 09:50 Sensipar PO 30 mg DAILY GUI Administration Clopidogrel Bisulfate 75 mg 06/19/18 10:00 06/19/18 09:50 Plavix PO 75 mg DAILY GUI Administration Epoetin Kevin 10,000 unit 06/20/18 09:00 Procrit IV MWF GUI Famotidine 20 mg 06/20/18 10:00 Pepcid PO DAILY GUI Gabapentin 100 mg 06/19/18 10:00 06/19/18 09:50 Neurontin PO 100 mg DAILY GUI Administration Sodium Chloride 1,000 mls @ 25 mls/hr 06/18/18 20:05 06/18/18 20:08 Sodium Chloride 0.9% IV 06/19/18 20:04 25 mls/hr .Q24H ONE Administration Mirtazapine 15 mg 06/19/18 22:00 Remeron PO HS GUI Rosuvastatin Calcium 10 mg 06/19/18 22:00 Crestor PO HS GUI Sertraline HCl 50 mg 06/19/18 14:00 Zoloft PO DAILY GUI Sevelamer Carbonate 800 mg 06/19/18 10:00 06/19/18 09:50 Renvela PO 800 mg TID GUI Administration Past Psychiatric History - Past Psychiatric History Previous Treatment History: None Pertinent Medical Hx (Current Medical&Sleep Prob, Allergies): Allergies Allergy/AdvReac Type Severity Reaction Status Date / Time No Known Allergies Allergy Verified 06/18/18 19:40 Acetaminophen [Tylenol 325mg tab] 325 mg PO Q4 PRN 05/12/18 Albuterol HFA [Ventolin HFA 90 mcg/actuation (8 g)] 1 puff IH [id number] PRN Albuterol/Ipratropium [Duoneb 3 mg/0.5 mg (3 ml) UD] 3 ml IH Q4 05/12/18 Aspirin [Adult Low Dose Aspirin EC] 81 mg PO DAILY 05/12/18 Atorvastatin [Lipitor] 20 mg PO DAILY 05/12/18 Cinacalcet [Sensipar] 30 mg PO DAILY 05/12/18 Clopidogrel [Plavix] 75 mg PO DAILY 05/12/18 Docusate [Colace] 100 mg PO 05/12/18 Ergocalciferol (Vitamin D2) [Ergocal] 1.25 unit PO QWK 05/12/18 Fluticasone/Vilanterol [Breo Ellipta 100-25 Mcg INH] 1 each IH DAILY 05/12/18 Gabapentin [Neurontin] 100 mg PO DAILY 05/12/18 Insulin Glargine, Recombina [Lantus] 10 unit SC HS 05/12/18 Lactulose [Constulose] 10 gm PO DAILY PRN 05/12/18 Magnesium Hydroxide [Milk Of Magnesia] 30 ml PO HS 05/12/18 Metoclopramide [Reglan] 10 mg PO ACHS 05/12/18 Metoprolol Tartrate [Lopressor] 50 mg PO BID 05/12/18 Multivitamin [Multivitamins] 1 each PO DAILY 05/12/18 Pantoprazole Sodium [Protonix] 40 mg PO DAILY 05/12/18 Sertraline [Zoloft] 50 mg PO DAILY 05/12/18 Sevelamer [Renagel] 800 mg PO TID 05/12/18 amLODIPine [Norvasc] 5 mg PO DAILY 05/12/18 traMADol [Ultram] 50 mg PO TID PRN 05/12/18 Epoetin Kevin [Procrit] 10,000 unit IV MWF ml 05/15/18 Review of Systems - Review of Systems Systems not reviewed;Unavailable: Acuity of Condition All systems: reviewed and no additional remarkable complaints except - Constitutional Constitutional: Weakness - Psychiatric Psychiatric: As Per HPI, Change in Appetite, Depression, Difficulty Concentrating, Suicidal Ideation Mental Status Examination - Personal Presentation Personal Presentation: Looks stated age - Affect Affect: Constricted, Depressed - Motor Activity Motor Activity: Calm - Reliability in Providing Information Reliability in Providing Information: Fair - Speech Speech: Organized - Mood Mood: Depressed, Anxious - Formal Thought Process Formal Thought Process: No Impairment - Obsessions/Compulsions Obsessions: None Compulsions: None - Cognitive Functions Orientation: Person, Place, Situation, Time Sensorium: Alert Attention/Concentration: Attentive Abstract Thinking: [place] Estimate of Intelligence: Below average Judgement: Imparied, as evidence by: Poor judgement, Imparied, as evidence by: Lack of insight into illness Memory: Recent intact, as evidence by: Ability to recall events of the day - Risk Risk: Suicidal, Diminished functioning - Strength & Assets Inventory Strength & Assets Inventory: Family support DSM 5 DX - DSM 5 DSM 5 Diagnosis: 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
--- NOTE | 2018-06-19 14:50 | CP.PCM.HP ---
Past Patient History - Infectious Disease Hx of Infectious Diseases: None - Past Medical History & Family History Past Medical History?: Yes Past Family History: Reviewed and not pertinent - Past Social History Smoking Status: Never Smoked Chewing Tobacco Use: No Cigar Use: No Alcohol: None Drugs: Denies - CARDIAC Hx Hypercholesterolemia: Yes Hx Hypertension: Yes - PULMONARY Hx Asthma: Yes Hx Chronic Obstructive Pulmonary Disease (COPD): Yes - NEUROLOGICAL HX Cerebrovascular Accident: Yes (01/2016, left sided weakness) - HEENT Hx HEENT Problems: Yes Other/Comment: Wears Eyeglasses - RENAL Hx Chronic Kidney Disease: Yes - ENDOCRINE/METABOLIC Hx Hyperthyroidism: No - HEMATOLOGICAL/ONCOLOGICAL Hx Anemia: Yes - INTEGUMENTARY Hx Dermatological Problems: No - MUSCULOSKELETAL/RHEUMATOLOGICAL Hx Falls: No - GASTROINTESTINAL Hx Gastritis: Yes - GENITOURINARY/GYNECOLOGICAL Hx Genitourinary Disorders: No - PSYCHIATRIC Hx Substance Use: No - SURGICAL HISTORY Hx Surgeries: Yes Hx Section: Yes Other/Comment: Insertion Of HD Cath on the R Internal Jugular; left forearm graft for dialysis. - ANESTHESIA Hx Anesthesia: Yes Hx Anesthesia Reactions: No Hx Malignant Hyperthermia: No Meds Allergies/Adverse Reactions: Allergies Allergy/AdvReac Type Severity Reaction Status Date / Time No Known Allergies Allergy Verified 06/18/18 19:40 Results - Vital Signs Recent Vital Signs: Last Vital Signs Temp 98.3 F 06/19/18 13:10 Pulse 93 H 06/19/18 13:10 Resp 20 06/19/18 13:10 BP 143/85 06/19/18 13:10 Pulse Ox 93 L 06/19/18 13:10 - Labs Result Diagrams: 06/19/18 05:39 06/19/18 05:39 Labs: Laboratory Results - last 24 hr 06/18/18 06/18/18 06/18/18 19:54 20:13 20:13 WBC 8.2 RBC 3.25 L Hgb 8.9 L Hct 27.9 L MCV 86.0 MCH 27.4 MCHC 31.9 L RDW 16.3 H Plt Count 289 MPV 8.5 Neut % (Auto) 65.2 Lymph % (Auto) 15.9 L [place] % (Auto) 13.6 H Eos % (Auto) 4.4 H Baso % (Auto) 0.9 Neut # (Auto) 5.3 Lymph # (Auto) 1.3 [place] # (Auto) 1.1 H Eos # (Auto) 0.4 Baso # (Auto) 0.1 Puncture Site pCO2 pO2 HCO3 ABG pH ABG Total CO2 ABG O2 Saturation ABG Base Excess ABG Hemoglobin ABG Carboxyhemoglobin POC ABG HHb (Measured) ABG Methemoglobin Bishop Test A-a O2 Difference Respiratory Index Hgb O2 Saturation Liter Flow FiO2 Sodium 142 Potassium 3.7 Chloride 93 L Carbon Dioxide 37 H Anion Gap 16 BUN 20 H Creatinine 3.2 H Est GFR ( Amer) 19 Est GFR (Non-Af Amer) 16 POC Glucose (mg/dL) 285 H Random Glucose 280 H Calcium 9.5 Phosphorus Magnesium Total Bilirubin 1.4 H AST 76 H D ALT 41 Alkaline Phosphatase 1471 H Total Protein 10.2 H Albumin 3.7 Globulin 6.5 H Albumin/Globulin Ratio 0.6 L Salicylates Acetaminophen Alcohol, Quantitative < 10 06/18/18 06/18/18 06/19/18 20:25 20:37 05:39 WBC 6.7 RBC 3.03 L Hgb 8.4 L Hct 26.1 L MCV 85.9 MCH 27.6 MCHC 32.1 L RDW 15.8 H Plt Count 259 MPV 9.0 Neut % (Auto) 57.0 Lymph % (Auto) 20.4 [place] % (Auto) 15.4 H Eos % (Auto) 6.0 H Baso % (Auto) 1.2 Neut # (Auto) 3.8 Lymph # (Auto) 1.4 [place] # (Auto) 1.0 H Eos # (Auto) 0.4 Baso # (Auto) 0.1 Puncture Site Rradial pCO2 45 pO2 80 HCO3 34.0 H ABG pH 7.51 H ABG Total CO2 37.3 H ABG O2 Saturation 97.2 ABG Base Excess 11.7 H ABG Hemoglobin 8.6 L ABG Carboxyhemoglobin 2.0 H POC ABG HHb (Measured) 2.7 ABG Methemoglobin 0.8 Bishop Test Pos A-a O2 Difference 63.0 Respiratory Index 0.8 Hgb O2 Saturation 94.5 L Liter Flow 2.0 FiO2 28.0 Sodium Potassium Chloride Carbon Dioxide Anion Gap BUN Creatinine Est GFR ( Amer) Est GFR (Non-Af Amer) POC Glucose (mg/dL) Random Glucose Calcium Phosphorus Magnesium Total Bilirubin AST ALT Alkaline Phosphatase Total Protein Albumin Globulin Albumin/Globulin Ratio Salicylates < 1.0 Acetaminophen < 10.0 L Alcohol, Quantitative 06/19/18 06/19/18 06/19/18 05:39 07:36 11:33 WBC RBC Hgb Hct MCV MCH MCHC RDW Plt Count MPV Neut % (Auto) Lymph % (Auto) [place] % (Auto) Eos % (Auto) Baso % (Auto) Neut # (Auto) Lymph # (Auto) [place] # (Auto) Eos # (Auto) Baso # (Auto) Puncture Site pCO2 pO2 HCO3 ABG pH ABG Total CO2 ABG O2 Saturation ABG Base Excess ABG Hemoglobin ABG Carboxyhemoglobin POC ABG HHb (Measured) ABG Methemoglobin Bishop Test A-a O2 Difference Respiratory Index Hgb O2 Saturation Liter Flow FiO2 Sodium 143 Potassium 3.3 L Chloride 96 L Carbon Dioxide 32 H Anion Gap 19 BUN 22 H Creatinine 3.7 H Est GFR ( Amer) 16 Est GFR (Non-Af Amer) 13 POC Glucose (mg/dL) 97 182 H Random Glucose 94 Calcium 9.1 Phosphorus 4.0 Magnesium 2.1 Total Bilirubin 1.1 AST 58 H D ALT 37 Alkaline Phosphatase 1113 H Total Protein 9.5 H Albumin 3.5 Globulin 6.0 H Albumin/Globulin Ratio 0.6 L Salicylates Acetaminophen Alcohol, Quantitative
[2018-06-19] MEDS ORDERED: Glucagon Recombinant 1 mg Inj IM PRN (23:01)
[2018-06-20] MEDS: Albuterol-Ipratrop 3 mg / 0.5 (3 ml) UD IH SCH ×7 (00:05→23:34)
[2018-06-20] MEDS: (Novolin R) Insulin Human Regular 100 units/ml vial SC SCH ×5 (08:19→21:27)
[2018-06-20] MEDS: Epoetin Alfa 10,000 unit/ml Dialysis IV SCH (12:37)
--- NOTE | 2018-06-20 12:45 | CP.PCM.PN ---
Subjective - Date & Time of Evaluation Date of Evaluation: 06/20/18 Time of Evaluation: 12:44 - Subjective Subjective: seen at dialysis feels better to UF 2500ml HTN labile Hg low- on ESAs no new complaint Objective - Vital Signs/Intake and Output Vital Signs (last 24 hours): Temp Pulse Resp BP Pulse Ox 98.0 F 106 H 20 156/91 H 98 06/20/18 09:20 06/20/18 09:20 06/20/18 09:20 06/20/18 12:00 06/20/18 08:55 - Medications Medications: Current Medications Albuterol/Ipratropium (Duoneb 3 Mg/0.5 Mg (3 Ml) Ud) 3 ml IH RQ4 [facility] Last Admin: 06/20/18 07:11 Dose: 3 ml Amlodipine Besylate (Norvasc) 5 mg PO DAILY [facility] Last Admin: 06/20/18 09:34 Dose: Not Given Cinacalcet (Sensipar) 30 mg PO DAILY [facility] Last Admin: 06/20/18 09:35 Dose: Not Given Clopidogrel Bisulfate (Plavix) 75 mg PO DAILY [facility] Last Admin: 06/20/18 09:35 Dose: Not Given Dextrose (Glutose 15) 0 gm PO ONCE PRN; Protocol PRN Reason: Hypoglycemia Protocol Epoetin Kevin (Procrit) 10,000 unit IV MWF [facility] Last Admin: 06/20/18 12:37 Dose: 10,000 unit Famotidine (Pepcid) 20 mg PO DAILY [facility] Last Admin: 06/20/18 09:34 Dose: Not Given Gabapentin (Neurontin) 100 mg PO TID [facility] Last Admin: 06/20/18 09:34 Dose: Not Given Glucagon (Glucagen Diagnostic Kit) 0 mg IM STAT PRN; Protocol PRN Reason: Hypoglycemia Protocol Dextrose (Dextrose 5% In Water 1000 Ml) 1,000 mls @ 0 mls/hr IV .Q0M PRN; Protocol; Per Protocol PRN Reason: Hypoglycemia Protocol Insulin Human Regular (Novolin R) 0 unit SC ACHS [facility] PRN Reason: Protocol Last Admin: 06/20/18 12:31 Dose: Not Given Mirtazapine (Remeron) 15 mg PO [facility] Last Admin: 06/19/18 22:03 Dose: 15 mg Rosuvastatin Calcium (Crestor) 10 mg PO [facility] Last Admin: 06/19/18 22:03 Dose: 10 mg Sertraline HCl (Zoloft) 50 mg PO DAILY [facility] Last Admin: 06/20/18 09:35 Dose: Not Given Sevelamer Carbonate (Renvela) 800 mg PO TID [facility] Last Admin: 06/20/18 09:35 Dose: Not Given - Labs Labs: 06/19/18 05:39 06/19/18 05:39 - Constitutional Appears: No Acute Distress, Chronically Ill - Head Exam Head Exam: ATRAUMATIC, NORMAL INSPECTION - Eye Exam Eye Exam: EOMI, Normal appearance - Neck Exam Neck Exam: Normal Inspection. absent: Tenderness - Respiratory Exam Respiratory Exam: Clear to Ausculation Bilateral, NORMAL BREATHING PATTERN - Cardiovascular Exam Cardiovascular Exam: REGULAR RHYTHM, +S1 - GI/Abdominal Exam GI & Abdominal Exam: Soft. absent: Tenderness - Extremities Exam Extremities Exam: Normal Inspection. absent: Tenderness - Neurological Exam Neurological Exam: Awake, CN II-XII Intact - Psychiatric Exam Psychiatric exam: Depressed, Flat Affect - Skin Skin Exam: Dry, Warm Assessment and Plan (1) Type 2 diabetes mellitus with diabetic nephropathy Status: Acute (2) Essential (primary) hypertension Status: Acute (3) CHF (congestive heart failure) Status: Acute (4) Suicide attempt Status: Acute (5) End stage renal disease Status: Acute - Assessment and Plan (Free Text) Plan: check Fe stores increase BP meds dialysis MWF
--- NOTE | 2018-06-20 15:26 | PCM.PYCHPN ---
Psychiatric Progress Note - Psychiatric Progress Note Patient seen today, length of contact: 15 minutes Patient Chief Complaint: I have a headache Problems Identified/Issues Discussed: Patient seen, chart reviewed, case discussed with nursing staff. She is compliant with medications, with no adverse effects. She is more alert today, still complains of headache. She states she is still depressed, and tired of living with all her illnesses. She is not anxious currently. She does not have the feelings of hopelessness. She denies suicidal thoughts anymore, does not want to hurt herself. She denies auditory or visual hallucinations. She denies paranoia. She is unsure of inpatient psychiatric treatment at this time. Mother present at bedside. Patient lives with her mother and her stepdad. Medical Record Reviewed: Yes Mental Status Examination - Cognitive Function Orientation: Person, Place, Situation, Time Memory: Intact Attention: WNL Concentration: WNL Association: WNL Fund of Knowledge: WNL - Mood Mood: Depressed - Affect Affect: Constricted, Depressed - Speech Speech: Appropriate - Formal Thought Process Formal Thought Process: No Impairment - Suicidal Ideation Suicidal Ideation: No - Homicidal Ideation Homicidal Ideation: No Goal/Treatment Plan - Goal/Treatment Plan Need for Continued Stay: Severe depression anxiety Progress Toward Problem(s) and Goals/Treatment Plan: Major depressive disorder without psychotic features Continue CBT Psychoeducation Zoloft 50mg by mouth daily Gabapentin 100mg PO TID Remeron 15mg PO HS Case discussed with Dr. Emil Turner, PGY1
--- NOTE | 2018-06-20 17:09 | CP.PCM.PN ---
Subjective - Date & Time of Evaluation Date of Evaluation: 06/20/18 Time of Evaluation: 17:09 Objective - Vital Signs/Intake and Output Vital Signs (last 24 hours): Temp Pulse Resp BP Pulse Ox 98.3 F 101 H 20 154/82 H 100 06/20/18 15:00 06/20/18 15:00 06/20/18 15:00 06/20/18 15:00 06/20/18 15:00 - Medications Medications: Current Medications Albuterol/Ipratropium (Duoneb 3 Mg/0.5 Mg (3 Ml) Ud) 3 ml IH RQ4 [facility] Last Admin: 06/20/18 16:02 Dose: 3 ml Amlodipine Besylate (Norvasc) 5 mg PO DAILY [facility] Last Admin: 06/20/18 13:50 Dose: 5 mg Carvedilol (Coreg) 3.125 mg PO BID [facility] Cinacalcet (Sensipar) 30 mg PO DAILY [facility] Last Admin: 06/20/18 13:50 Dose: 30 mg Clopidogrel Bisulfate (Plavix) 75 mg PO DAILY [facility] Last Admin: 06/20/18 13:50 Dose: 75 mg Dextrose (Glutose 15) 0 gm PO ONCE PRN; Protocol PRN Reason: Hypoglycemia Protocol Epoetin Kevin (Procrit) 10,000 unit IV MWF [facility] Last Admin: 06/20/18 12:37 Dose: 10,000 unit Famotidine (Pepcid) 20 mg PO DAILY [facility] Last Admin: 06/20/18 13:50 Dose: 20 mg Gabapentin (Neurontin) 100 mg PO TID [facility] Last Admin: 06/20/18 13:50 Dose: 100 mg Glucagon (Glucagen Diagnostic Kit) 0 mg IM STAT PRN; Protocol PRN Reason: Hypoglycemia Protocol Dextrose (Dextrose 5% In Water 1000 Ml) 1,000 mls @ 0 mls/hr IV .Q0M PRN; Protocol; Per Protocol PRN Reason: Hypoglycemia Protocol Insulin Human Regular (Novolin R) 0 unit SC ACHS [facility] PRN Reason: Protocol Last Admin: 06/20/18 16:35 Dose: Not Given Mirtazapine (Remeron) 15 mg PO HS [facility] Last Admin: 06/19/18 22:03 Dose: 15 mg Rosuvastatin Calcium (Crestor) 10 mg PO HS [facility] Last Admin: 08/02/18 22:03 Dose: 10 mg Sertraline HCl (Zoloft) 50 mg PO DAILY [facility] Last Admin: 06/20/18 13:50 Dose: 50 mg Sevelamer Carbonate (Renvela) 800 mg PO TID [facility] Last Admin: 06/20/18 13:50 Dose: 800 mg - Labs Labs: 06/19/18 05:39 06/19/18 05:39
--- NOTE | 2018-06-20 20:52 | CARD ---
APPROVED REPORT Date of service: 06/19/2018 EKG Measurement Heart [id number] <Conclusion> Normal sinus rhythm Possible Left atrial enlargement Prolonged QT Abnormal ECG
[2018-06-21] MEDS: Albuterol-Ipratrop 3 mg / 0.5 (3 ml) UD IH SCH ×5 (03:19→19:39)
[2018-06-21] MEDS: (Novolin R) Insulin Human Regular 100 units/ml vial SC SCH ×4 (08:15→22:13)
[2018-06-21] MEDS ORDERED: Ferric Sodium Gluconat Complex 62.5 mg/5 ml Vial IVPB SCH (10:15)
--- NOTE | 2018-06-21 10:15 | CP.PCM.PN ---
Subjective - Date & Time of Evaluation Date of Evaluation: 06/21/18 Time of Evaluation: 10:12 - Subjective Subjective: Appears same, lethargic without new complaint Hg low, TSAT low HTN still elevated Objective - Vital Signs/Intake and Output Vital Signs (last 24 hours): Temp Pulse Resp BP Pulse Ox 98.1 F 97 H 18 169/94 H 100 06/21/18 07:00 06/21/18 07:00 06/21/18 07:00 06/21/18 07:00 06/21/18 07:00 - Medications Medications: Current Medications Albuterol/Ipratropium (Duoneb 3 Mg/0.5 Mg (3 Ml) Ud) 3 ml IH RQ4 [facility] Last Admin: 06/21/18 08:00 Dose: 3 ml Amlodipine Besylate (Norvasc) 5 mg PO DAILY [facility] Last Admin: 06/21/18 10:09 Dose: 5 mg Carvedilol (Coreg) 6.25 mg PO BID [facility] Cinacalcet (Sensipar) 30 mg PO DAILY [facility] Last Admin: 06/21/18 10:10 Dose: 30 mg Clopidogrel Bisulfate (Plavix) 75 mg PO DAILY [facility] Last Admin: 06/21/18 10:10 Dose: 75 mg Dextrose (Glutose 15) 0 gm PO ONCE PRN; Protocol PRN Reason: Hypoglycemia Protocol Epoetin Kevin (Procrit) 10,000 unit IV MWF [facility] Last Admin: 06/20/18 12:37 Dose: 10,000 unit Famotidine (Pepcid) 20 mg PO DAILY [facility] Last Admin: 06/21/18 10:10 Dose: 20 mg Ferric Sodium Gluconate Complex (Ferrlecit) 125 mg IVPB ONCE [facility] Stop: 06/29/18 10:16 Gabapentin (Neurontin) 100 mg PO TID [facility] Last Admin: 06/21/18 10:10 Dose: 100 mg Glucagon (Glucagen Diagnostic Kit) 0 mg IM STAT PRN; Protocol PRN Reason: Hypoglycemia Protocol Dextrose (Dextrose 5% In Water 1000 Ml) 1,000 mls @ 0 mls/hr IV .Q0M PRN; Protocol; Per Protocol PRN Reason: Hypoglycemia Protocol Insulin Human Regular (Novolin R) 0 unit SC ACHS [facility] PRN Reason: Protocol Last Admin: 06/21/18 08:15 Dose: 10 units Mirtazapine (Remeron) 15 mg PO HS [facility] Last Admin: 06/20/18 21:25 Dose: 15 mg Morphine Sulfate (Morphine) 2 mg IV Q6 PRN PRN Reason: Pain, severe (8-10) Last Admin: 06/20/18 19:02 Dose: 2 mg Rosuvastatin Calcium (Crestor) 10 mg PO HS [facility] Last Admin: 06/20/18 21:25 Dose: 10 mg Sertraline HCl (Zoloft) 50 mg PO DAILY [facility] Last Admin: 06/21/18 10:10 Dose: 50 mg Sevelamer Carbonate (Renvela) 800 mg PO TID [facility] Last Admin: 06/21/18 10:10 Dose: 800 mg - Labs Labs: 06/19/18 05:39 06/19/18 05:39 - Constitutional Appears: No Acute Distress, Chronically Ill - Head Exam Head Exam: ATRAUMATIC, NORMAL INSPECTION - Eye Exam Eye Exam: EOMI, Normal appearance - Neck Exam Neck Exam: Normal Inspection. absent: Tenderness - Respiratory Exam Respiratory Exam: Clear to Ausculation Bilateral, NORMAL BREATHING PATTERN - Cardiovascular Exam Cardiovascular Exam: REGULAR RHYTHM, +S1 - GI/Abdominal Exam GI & Abdominal Exam: Soft. absent: Tenderness - Extremities Exam Extremities Exam: Normal Inspection. absent: Tenderness - Neurological Exam Neurological Exam: Awake, CN II-XII Intact - Skin Skin Exam: Dry, Warm Assessment and Plan (1) Type 2 diabetes mellitus with diabetic nephropathy Status: Acute (2) Essential (primary) hypertension Status: Acute (3) CHF (congestive heart failure) Status: Acute (4) Suicide attempt Status: Acute (5) End stage renal disease Status: Acute - Assessment and Plan (Free Text) Plan: Increase carvedilol dose Change to 3 K bath Dialysis MWF 1 dose ferrlecit to increase Hg; same CORINNE dose
[2018-06-21] MEDS ORDERED: Ferric Sodium Gluconat Complex 62.5 MG in Sodium Chloride 0.9% 100 ML IVPB ONE (11:00)
--- NOTE | 2018-06-21 11:00 | PCM.PYCHPN ---
Psychiatric Progress Note - Psychiatric Progress Note Patient seen today, length of contact: 15 minutes Patient Chief Complaint: "I m feeing depressed.'" Problems Identified/Issues Discussed: Patient seen and evaluated, chart reviewed and discussed with the nurse. Pt reports depressed mood, feelings of hopelessness and helplessness. She remained isolated and withdrawn, and confined to her room. She denies any AVH or any paranoia. Patient is compliant with medications and denies any side effects. Symptoms are improving but pt needs more time to stabilize. Support and psychoeducation given. Medical Record Reviewed: Yes Mental Status Examination - Cognitive Function Orientation: Person, Place, Situation, Time Memory: Intact Attention: WNL Concentration: Poor Association: WNL Fund of Knowledge: Poor - Mood Mood: Depressed, Anxious - Affect Affect: Constricted, Depressed - Speech Speech: Appropriate - Formal Thought Process Formal Thought Process: No Impairment - Suicidal Ideation Suicidal Ideation: Yes - Homicidal Ideation Homicidal Ideation: No Goal/Treatment Plan - Goal/Treatment Plan Need for Continued Stay: Severe depression anxiety, Severe functional impairment Progress Toward Problem(s) and Goals/Treatment Plan: 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
[2018-06-22] MEDS: Albuterol-Ipratrop 3 mg / 0.5 (3 ml) UD IH SCH ×6 (00:42→20:36)
--- NOTE | 2018-06-22 01:15 | PCM.BM ---
<Sammi Black - Last Filed: 06/22/18 01:13> Treatment Plan Problems - Problems identified on initial assessmt Suicidal ideations Date Initiated: 06/21/18 Time Initiated: 23:30 Assessment reference: NA Status: Active Treatment assets and liabiliti Patient Assests: cooperative, negotiates basic needs Patient Liabilities: medical problems - Milieu Protocol Maintain good personal hygiene: daily Encourage regular showers, daily Remind patient to perform daily oral care, daily Assist patient to perform ADL's Maintain personal safety: every shift Educate patient to report safety concerns to staff, every shift Monitor environment for contraband/sharps Medication safety: Monitor for expected outcome, potential side effects: every shift, Assess barriers to learning: every shift, Assess readiness for medication education: every shift Milieu Narrative: Suicidal Attempt continue 1:1 Pt in ICU for monitoring Will be transferred to the tele when vitals will be little stabilized 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 Discharge/Continuing Care - Treatment Team Participation Patient/Family/SO Statement: Suicidal Attempt continue 1:1 Pt in ICU for monitoring Will be transferred to the tele when vitals will be little stabilized 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 <Alanis Stein - Last Filed: 06/24/18 10:50> - Diagnosis (1) Major depressive disorder, single episode, severe Status: Acute Interventions: 06/24/18 10:51 * Assess/adjust medications daily and /or as needed * See patient on an individual basis 7x/week to assess symptoms of depression * Monitor for side effects & effectiveness of medications * <Imelda Fernandes - Last Filed: 06/25/18 14:44> Family Contact Family involvement: Patient does not wish Family/SO involvement Family contact: Patient declines to allow family contact at present Discharge/Continuing Care - Education Needs Education Needs: Patient Medication, Patient Diagnosis/Disease Process, Patient Coping Skills - Discharge Discharge Criteria: Free of Suicidal thoughts, Normal sleep pattern, Ability to care for self, No longer exhibiting s/s of withdrawal, Reduction of target symptoms, Other Discharge to:: Home, With Family - Treatment Team Participation Discussed with Family/SO: No Was Patient/Family/SO present at Treatment Team Meeting: No (Patient was not present during tx meeting due to pt in dialysis, sedated )
[2018-06-22] MEDS ORDERED: Pneumococcal 23-Valent Vaccine IM ONE (02:02)
[2018-06-22] MEDS: (Novolin R) Insulin Human Regular 100 units/ml vial SC SCH ×4 (07:45→21:29)
--- NOTE | 2018-06-22 11:01 | PCM.PYCHPN ---
Psychiatric Progress Note - Psychiatric Progress Note Patient seen today, length of contact: 15 minutes Patient Chief Complaint: "I want to kill myself" Problems Identified/Issues Discussed: Patient seen and evaluated, chart reviewed and discussed with the nurse. Pt reports depressed mood, feelings of hopelessness and helplessness. She remained isolated and withdrawn, and confined to her room. She denies any AVH or any paranoia. Patient is compliant with medications and denies any side effects. Symptoms are improving but pt needs more time to stabilize. Support and psychoeducation given. Medication Change: Yes Medical Record Reviewed: Yes Mental Status Examination - Cognitive Function Orientation: Person, Place, Situation, Time Memory: Intact Attention: WNL Concentration: Poor Association: WNL Fund of Knowledge: Poor - Mood Mood: Depressed - Affect Affect: Constricted, Depressed - Speech Speech: Appropriate - Formal Thought Process Formal Thought Process: No Impairment - Suicidal Ideation Suicidal Ideation: Yes - Homicidal Ideation Homicidal Ideation: No Goal/Treatment Plan - Goal/Treatment Plan Need for Continued Stay: Severe depression anxiety, Severe functional impairment Progress Toward Problem(s) and Goals/Treatment Plan: 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
[2018-06-23] MEDS: Albuterol-Ipratrop 3 mg / 0.5 (3 ml) UD IH SCH ×6 (00:50→20:17)
[2018-06-23] MEDS: (Novolin R) Insulin Human Regular 100 units/ml vial SC SCH ×4 (08:18→21:40)
[2018-06-23] MEDS: Epoetin Alfa 10,000 unit/ml Dialysis IV SCH ×2 (11:27→12:01)
--- NOTE | 2018-06-23 11:46 | CP.PCM.PN ---
Subjective - Date & Time of Evaluation Date of Evaluation: 06/23/18 Time of Evaluation: 11:43 - Subjective Subjective: Transferred to psychiatry Seen at dialysis - UF 3000ml Hg was still low- will repeat; on ESAs HTN controlled Objective - Vital Signs/Intake and Output Vital Signs (last 24 hours): Temp Pulse Resp BP Pulse Ox 97.6 F 92 H 16 148/84 97 06/23/18 09:10 06/23/18 09:10 06/23/18 09:10 06/23/18 11:25 06/23/18 09:10 - Medications Medications: Current Medications Albuterol/Ipratropium (Duoneb 3 Mg/0.5 Mg (3 Ml) Ud) 3 ml IH RQ4 [facility] Last Admin: 06/23/18 08:10 Dose: Not Given Amlodipine Besylate (Norvasc) 5 mg PO DAILY [facility] Last Admin: 06/23/18 11:26 Dose: Not Given Carvedilol (Coreg) 6.25 mg PO BID [facility] Last Admin: 06/23/18 11:23 Dose: Not Given Cinacalcet (Sensipar) 30 mg PO DAILY [facility] Last Admin: 06/23/18 11:28 Dose: Not Given Clopidogrel Bisulfate (Plavix) 75 mg PO DAILY [facility] Last Admin: 06/23/18 11:27 Dose: Not Given Dextrose (Glutose 15) 0 gm PO ONCE PRN; Protocol PRN Reason: Hypoglycemia Protocol Epoetin Kevin (Procrit) 10,000 unit IV MWF [facility] Last Admin: 06/23/18 11:27 Dose: Not Given Famotidine (Pepcid) 20 mg PO DAILY [facility] Last Admin: 06/23/18 11:27 Dose: Not Given Gabapentin (Neurontin) 100 mg PO TID [facility] Last Admin: 06/23/18 11:26 Dose: Not Given Glucagon (Glucagen Diagnostic Kit) 0 mg IM STAT PRN; Protocol PRN Reason: Hypoglycemia Protocol Insulin Human Regular (Novolin R) 0 unit SC ACHS [facility] PRN Reason: Protocol Last Admin: 06/23/18 08:18 Dose: 4 units Mirtazapine (Remeron) 45 mg PO HS [facility] Last Admin: 06/22/18 21:29 Dose: 45 mg Morphine Sulfate (Morphine) 2 mg IV Q6 PRN PRN Reason: Pain, severe (8-10) Last Admin: 06/21/18 22:24 Dose: 2 mg Pneumococcal Polyvalent Vaccine (Pneumovax 23 Vaccine) 0.5 ml IM .ONCE ONE Stop: 06/25/18 10:01 Rosuvastatin Calcium (Crestor) 10 mg PO HS [facility] Last Admin: 06/22/18 21:29 Dose: 10 mg Sertraline HCl (Zoloft) 100 mg PO DAILY [facility] Last Admin: 06/23/18 11:28 Dose: Not Given Sevelamer Carbonate (Renvela) 800 mg PO TID [facility] Last Admin: 06/23/18 11:28 Dose: Not Given - Labs Labs: 06/19/18 05:39 06/19/18 05:39 - Constitutional Appears: No Acute Distress, Chronically Ill - Head Exam Head Exam: ATRAUMATIC, NORMAL INSPECTION - Eye Exam Eye Exam: EOMI, Normal appearance - Neck Exam Neck Exam: Normal Inspection. absent: Tenderness - Respiratory Exam Respiratory Exam: Clear to Ausculation Bilateral, NORMAL BREATHING PATTERN - Cardiovascular Exam Cardiovascular Exam: REGULAR RHYTHM, +S1 - GI/Abdominal Exam GI & Abdominal Exam: Soft. absent: Tenderness - Extremities Exam Extremities Exam: Normal Inspection. absent: Tenderness - Neurological Exam Neurological Exam: Alert, CN II-XII Intact - Skin Skin Exam: Dry, Warm Assessment and Plan (1) Type 2 diabetes mellitus with diabetic nephropathy Status: Acute (2) Essential (primary) hypertension Status: Acute (3) CHF (congestive heart failure) Status: Acute (4) Suicide attempt Status: Acute (5) End stage renal disease Status: Acute - Assessment and Plan (Free Text) Plan: continue psychiatry rx and therapy dialysis MWF same BP meds recheck labs
--- NOTE | 2018-06-23 16:30 | PCM.PYCHPN ---
Psychiatric Progress Note - Psychiatric Progress Note Patient seen today, length of contact: 15 minutes Patient Chief Complaint: "I m feeling depressed." Problems Identified/Issues Discussed: Patient was evaluated at bedside. Chart was reviewed and discussed with nurse. Patient remains isolated in bedroom with the exception of attending dialysis. She reports feeing tired after her dialysis this morning. Patient confirms nausea but denies vomiting or diarrhea. She described depressed mood, stating that she feels hopeless with decreased energy. Patient reports feeling both physically and emotionally tired and "just wants to rest." She reports that her entire body aches. Patient denies anxiety or feeling as if her mind is racing. Patient denies V/H, A/H, or feelings of harming herself or others. She denies sweating, chills, or fever. Patient needs more time to stabilize. Medication Change: No Medical Record Reviewed: Yes Mental Status Examination - Cognitive Function Orientation: Person, Place, Situation, Time Memory: Intact Attention: WNL Concentration: Poor Association: WNL Fund of Knowledge: Poor - Mood Mood: Depressed, Anxious - Affect Affect: Constricted, Depressed - Speech Speech: Appropriate - Formal Thought Process Formal Thought Process: No Impairment - Suicidal Ideation Suicidal Ideation: No - Homicidal Ideation Homicidal Ideation: No Goal/Treatment Plan - Goal/Treatment Plan Need for Continued Stay: Severe depression anxiety, Severe functional impairment Progress Toward Problem(s) and Goals/Treatment Plan: 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
--- NOTE | 2018-06-23 21:03 | CARD ---
APPROVED REPORT EKG Measurement Heart [id number] <Conclusion> Normal sinus rhythm Rightward axis Nonspecific ST and T wave abnormality Abnormal ECG
[2018-06-24] MEDS: Albuterol-Ipratrop 3 mg / 0.5 (3 ml) UD IH SCH (00:17)
[2018-06-24 08:42] LABS: HEMOGLOBIN 9.1 g/dL (11.0-16.0); MEAN CELL VOLUME 85.6 fL (81.0-99.0); MEAN CORPUSCULAR HEMOGLOBIN 27.8 pg (27.0-31.0); MEAN CORPUSCULAR HGB CONC 32.5 g/dL (33.0-37.0); MEAN PLATELET VOLUME 9.5 fL (7.2-11.7); RBC 3.26 Mil/uL (3.80-5.20); RED CELL DISTRIBUTION WIDTH 15.4 % (11.5-14.5); WHITE BLOOD COUNT 8.3 K/uL (4.8-10.8)
[2018-06-24 09:03] LABS: ALB/GLOB RATIO 0.5 (1.0-2.1); ALBUMIN 3.5 g/dL (3.5-5.0); CALCIUM 8.4 mg/dl (8.6-10.4)
[2018-06-24] MEDS: (Novolin R) Insulin Human Regular 100 units/ml vial SC SCH ×5 (12:34→22:28)
--- NOTE | 2018-06-24 13:29 | PCM.PYCHPN ---
Psychiatric Progress Note - Psychiatric Progress Note Patient seen today, length of contact: 15 minutes Patient Chief Complaint: "I m feeling depressed." Problems Identified/Issues Discussed: Patient was evaluated at bedside. Chart was reviewed and discussed with nurse. Patient remains isolated in bedroom. She reports feeing tired but better than yesterday since she did not have her dialysis this morning. Patient denies n/v/ d. She described depressed mood, stating that she feels hopeless with decreased energy. Patient reports feeling both physically and emotionally tired and "just wants to rest." She reports that her entire body aches. Patient denies anxiety or feeling as if her mind is racing. Patient denies V/H, A/H, or feelings of harming herself or others. She denies sweating, chills, or fever. Patient needs more time to stabilize. Medication Change: No Medical Record Reviewed: Yes Mental Status Examination - Cognitive Function Orientation: Person, Place, Situation, Time Memory: Intact Attention: WNL Concentration: Poor Association: WNL Fund of Knowledge: Poor - Mood Mood: Depressed, Anxious - Affect Affect: Constricted, Depressed - Speech Speech: Appropriate - Formal Thought Process Formal Thought Process: No Impairment - Suicidal Ideation Suicidal Ideation: No - Homicidal Ideation Homicidal Ideation: No Goal/Treatment Plan - Goal/Treatment Plan Need for Continued Stay: Severe depression anxiety, Severe functional impairment Progress Toward Problem(s) and Goals/Treatment Plan: 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
[2018-06-25] MEDS: (Novolin R) Insulin Human Regular 100 units/ml vial SC SCH ×4 (07:59→22:32)
[2018-06-25] MEDS: Epoetin Alfa 10,000 unit/ml Dialysis IV SCH (09:27)
[2018-06-25] MEDS ORDERED: Pneumococcal 23-Valent Vaccine IM ONE (10:00)
--- NOTE | 2018-06-25 12:54 | CP.PCM.PN ---
Subjective - Date & Time of Evaluation Date of Evaluation: 06/25/18 Time of Evaluation: 12:52 - Subjective Subjective: alert; seen at dialysis UF 2500ml HTN controlled better with HD under psychiatry care Objective - Vital Signs/Intake and Output Vital Signs (last 24 hours): Temp Pulse Resp BP Pulse Ox 97.9 F 98 H 17 141/85 98 06/25/18 09:00 06/25/18 09:00 06/25/18 09:00 06/25/18 12:00 06/25/18 09:00 - Medications Medications: Current Medications Amlodipine Besylate (Norvasc) 5 mg PO DAILY [facility] Last Admin: 06/25/18 06:08 Dose: 5 mg Carvedilol (Coreg) 6.25 mg PO BID [facility] Last Admin: 06/24/18 19:11 Dose: 6.25 mg Cinacalcet (Sensipar) 30 mg PO DAILY [facility] Last Admin: 06/24/18 15:18 Dose: 30 mg Clopidogrel Bisulfate (Plavix) 75 mg PO DAILY [facility] Last Admin: 06/24/18 12:28 Dose: 75 mg Dextrose (Glutose 15) 0 gm PO ONCE PRN; Protocol PRN Reason: Hypoglycemia Protocol Epoetin Kevin (Procrit) 10,000 unit IV MWF [facility] Last Admin: 06/25/18 09:27 Dose: 10,000 unit Famotidine (Pepcid) 20 mg PO DAILY [facility] Last Admin: 06/24/18 12:28 Dose: 20 mg Glucagon (Glucagen Diagnostic Kit) 0 mg IM STAT PRN; Protocol PRN Reason: Hypoglycemia Protocol Insulin Human Regular (Novolin R) 0 unit SC [facility] PRN Reason: Protocol Last Admin: 06/25/18 07:59 Dose: 3 units Mirtazapine (Remeron) 45 mg PO HS [facility] Last Admin: 06/24/18 22:43 Dose: 45 mg Rosuvastatin Calcium (Crestor) 10 mg PO HS [facility] Last Admin: 06/24/18 22:43 Dose: 10 mg Sertraline HCl (Zoloft) 200 mg PO DAILY [facility] Last Admin: 06/24/18 15:18 Dose: 200 mg Sevelamer Carbonate (Renvela) 800 mg PO TID [facility] Last Admin: 06/24/18 19:11 Dose: 800 mg - Labs Labs: 08/07/18 08:28 08 08:28 - Constitutional Appears: No Acute Distress, Chronically Ill - Head Exam Head Exam: ATRAUMATIC, NORMAL INSPECTION - Eye Exam Eye Exam: EOMI, Normal appearance - Neck Exam Neck Exam: Normal Inspection. absent: Tenderness - Respiratory Exam Respiratory Exam: Clear to Ausculation Bilateral, NORMAL BREATHING PATTERN - Cardiovascular Exam Cardiovascular Exam: REGULAR RHYTHM, +S1 - GI/Abdominal Exam GI & Abdominal Exam: Soft. absent: Tenderness - Extremities Exam Extremities Exam: Normal Inspection. absent: Tenderness - Neurological Exam Neurological Exam: Alert, CN II-XII Intact - Skin Skin Exam: Dry, Warm Assessment and Plan (1) Type 2 diabetes mellitus with diabetic nephropathy Status: Acute (2) Essential (primary) hypertension Status: Acute (3) CHF (congestive heart failure) Status: Acute (4) Suicide attempt Status: Acute (5) End stage renal disease Status: Acute - Assessment and Plan (Free Text) Plan: same dialysis MWF psych care/meds monitor BP
--- NOTE | 2018-06-25 15:34 | PCM.PYCHPN ---
Psychiatric Progress Note - Psychiatric Progress Note Patient seen today, length of contact: 15 minutes Patient Chief Complaint: "I m feeling depressed." Problems Identified/Issues Discussed: Patient was evaluated at bedside. Chart was reviewed and discussed with nurse. Patient remains isolated in bedroom with the exception of attending dialysis. She reports feeing tired after her dialysis this morning. Patient denies n/v/d. She described depressed mood, stating that she feels hopeless with decreased energy. Patient reports feeling both physically and emotionally tired and "just wants to rest." She reports that her entire body aches. Patient denies anxiety or feeling as if her mind is racing. Patient denies V/H, A/H, or feelings of harming herself or others. She denies sweating, chills, or fever. Patient needs more time to stabilize. Medication Change: No Medical Record Reviewed: Yes Mental Status Examination - Cognitive Function Orientation: Person, Place, Situation, Time Memory: Intact Attention: WNL Concentration: Poor Association: WNL Fund of Knowledge: Poor - Mood Mood: Depressed, Anxious - Affect Affect: Constricted, Depressed - Speech Speech: Appropriate - Formal Thought Process Formal Thought Process: No Impairment - Suicidal Ideation Suicidal Ideation: No - Homicidal Ideation Homicidal Ideation: No Goal/Treatment Plan - Goal/Treatment Plan Need for Continued Stay: Severe depression anxiety, Severe functional impairment Progress Toward Problem(s) and Goals/Treatment Plan: 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
[2018-06-26] MEDS: (Novolin R) Insulin Human Regular 100 units/ml vial SC SCH ×4 (08:29→22:02)
--- NOTE | 2018-06-26 15:31 | PCM.PYCHPN ---
Psychiatric Progress Note - Psychiatric Progress Note Patient seen today, length of contact: 15 minutes Patient Chief Complaint: "I m feeling better." Problems Identified/Issues Discussed: Patient was evaluated at bedside. Chart was reviewed and discussed with nurse. Patient remains isolated in bedroom. Pt remains flat, depressed, isolated, and withdrawn. She denies depressed mood or feelings of hopelessness. Patient reports feeling both physically and emotionally tired and "just wants to rest." Patient denies anxiety or feeling as if her mind is racing. Patient denies V/H, A/H, or feelings of harming herself or others. She denies sweating, chills, or fever. Overall pt continues to look depressed regardless of denying such feelings. She does not smile and is isolated and in bed all day long. Pt's mother was called and mother wants discharge tomorrow even though pt has not improved. Pt will have 24 hour supervision at home. Patient needs more time to stabilize. Medication Change: No Medical Record Reviewed: Yes Mental Status Examination - Cognitive Function Orientation: Person, Place, Situation, Time Memory: Intact Attention: WNL Concentration: Poor Association: WNL Fund of Knowledge: Poor - Mood Mood: Depressed, Anxious - Affect Affect: Flat, Depressed - Speech Speech: Appropriate - Formal Thought Process Formal Thought Process: No Impairment - Suicidal Ideation Suicidal Ideation: No - Homicidal Ideation Homicidal Ideation: No Goal/Treatment Plan - Goal/Treatment Plan Need for Continued Stay: Severe depression anxiety, Severe functional impairment Progress Toward Problem(s) and Goals/Treatment Plan: 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
[2018-06-27] MEDS: (Novolin R) Insulin Human Regular 100 units/ml vial SC SCH ×5 (08:20→21:00)
[2018-06-27] MEDS: Epoetin Alfa 10,000 unit/ml Dialysis IV SCH (11:20)
--- NOTE | 2018-06-27 12:17 | CP.PCM.PN ---
Subjective - Date & Time of Evaluation Date of Evaluation: 06/27/18 Time of Evaluation: 12:15 - Subjective Subjective: Seen at dialysis HTN mildly elevated Uf around 2800ml Hg improved psychiatry plans noted Objective - Vital Signs/Intake and Output Vital Signs (last 24 hours): Temp Pulse Resp BP Pulse Ox 97.9 F 95 H 16 159/92 H 98 06/27/18 09:00 06/27/18 11:30 06/27/18 11:30 06/27/18 11:30 06/27/18 11:30 - Medications Medications: Current Medications Acetaminophen (Tylenol 325mg Tab) 325 mg PO Q6 PRN PRN Reason: Pain, moderate (4-7) Last Admin: 06/25/18 17:02 Dose: 325 mg Amlodipine Besylate (Norvasc) 5 mg PO DAILY [facility] Last Admin: 06/26/18 10:06 Dose: 5 mg Carvedilol (Coreg) 6.25 mg PO BID [facility] Last Admin: 06/26/18 17:44 Dose: 6.25 mg Cinacalcet (Sensipar) 30 mg PO DAILY [facility] Last Admin: 06/26/18 10:06 Dose: 30 mg Clonidine HCl (Catapres) 0.1 mg PO Q6H PRN PRN Reason: High blood pressure Last Admin: 06/26/18 06:04 Dose: 0.1 mg Clopidogrel Bisulfate (Plavix) 75 mg PO DAILY [facility] Last Admin: 06/26/18 10:06 Dose: 75 mg Dextrose (Glutose 15) 0 gm PO ONCE PRN; Protocol PRN Reason: Hypoglycemia Protocol Diphenhydramine HCl (Benadryl) 25 mg PO Q6 PRN PRN Reason: Allergy symptoms Last Admin: 06/26/18 22:10 Dose: 25 mg Epoetin Kevin (Procrit) 10,000 unit IV MWF [facility] Last Admin: 06/27/18 11:20 Dose: 10,000 unit Famotidine (Pepcid) 20 mg PO DAILY [facility] Last Admin: 06/26/18 10:06 Dose: 20 mg Glucagon (Glucagen Diagnostic Kit) 0 mg IM STAT PRN; Protocol PRN Reason: Hypoglycemia Protocol Insulin Human Regular (Novolin R) 0 unit SC ACHS [facility] PRN Reason: Protocol Last Admin: 06/27/18 08:20 Dose: 8 units Mirtazapine (Remeron) 45 mg PO HS [facility] Last Admin: 06/26/18 22:04 Dose: 45 mg Rosuvastatin Calcium (Crestor) 10 mg PO HS [facility] Last Admin: 06/26/18 22:04 Dose: 10 mg Sertraline HCl (Zoloft) 200 mg PO DAILY [facility] Last Admin: 06/26/18 10:05 Dose: 200 mg Sevelamer Carbonate (Renvela) 800 mg PO TID [facility] Last Admin: 06/26/18 17:44 Dose: 800 mg - Labs Labs: 06/24/18 08:28 06/24/18 08:28 - Constitutional Appears: No Acute Distress, Chronically Ill - Head Exam Head Exam: ATRAUMATIC, NORMAL INSPECTION - Eye Exam Eye Exam: EOMI, Normal appearance - Neck Exam Neck Exam: Normal Inspection. absent: Tenderness - Respiratory Exam Respiratory Exam: Clear to Ausculation Bilateral, NORMAL BREATHING PATTERN - Cardiovascular Exam Cardiovascular Exam: REGULAR RHYTHM, +S1 - GI/Abdominal Exam GI & Abdominal Exam: Soft. absent: Tenderness - Extremities Exam Extremities Exam: Normal Inspection. absent: Tenderness - Neurological Exam Neurological Exam: Alert, CN II-XII Intact - Skin Skin Exam: Dry, Warm Assessment and Plan (1) Type 2 diabetes mellitus with diabetic nephropathy Status: Acute (2) Essential (primary) hypertension Status: Acute (3) CHF (congestive heart failure) Status: Acute (4) Suicide attempt Status: Acute (5) End stage renal disease Status: Acute - Assessment and Plan (Free Text) Plan: Same dialysis MWF Monitor HTN Same ESAs for low Hg other plans as per pyschiatry
--- NOTE | 2018-06-27 15:47 | PCM.PYCHPN ---
Psychiatric Progress Note - Psychiatric Progress Note Patient seen today, length of contact: 15 minutes Patient Chief Complaint: "I m feeling better." Problems Identified/Issues Discussed: Patient was evaluated at bedside. Chart was reviewed and discussed with nurse. Patient remains isolated in bedroom. Pt remains flat, depressed, isolated, and withdrawn. She denies depressed mood or feelings of hopelessness. Patient reports feeling both physically and emotionally tired and "just wants to rest." Patient denies anxiety or feeling as if her mind is racing. Patient denies V/H, A/H, or feelings of harming herself or others. She denies sweating, chills, or fever. Overall pt continues to look depressed regardless of denying such feelings. She does not smile and is isolated and in bed all day long. Per the nursing state, pt was crying this morning in the cafeteria. Patient needs more time to stabilize and will remain in the unit tonight. Medication Change: No Medical Record Reviewed: Yes Mental Status Examination - Cognitive Function Orientation: Person, Place, Situation, Time Memory: Intact Attention: WNL Concentration: Poor Association: WNL Fund of Knowledge: Poor - Mood Mood: Depressed, Anxious - Affect Affect: Flat, Depressed - Speech Speech: Appropriate - Formal Thought Process Formal Thought Process: No Impairment - Suicidal Ideation Suicidal Ideation: No - Homicidal Ideation Homicidal Ideation: No Goal/Treatment Plan - Goal/Treatment Plan Need for Continued Stay: Severe depression anxiety, Severe functional impairment Progress Toward Problem(s) and Goals/Treatment Plan: 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
[2018-06-28] MEDS: (Novolin R) Insulin Human Regular 100 units/ml vial SC SCH ×4 (08:05→21:44)
--- NOTE | 2018-06-28 15:30 | PCM.PYCHPN ---
Psychiatric Progress Note - Psychiatric Progress Note Patient seen today, length of contact: 15 minutes Patient Chief Complaint: I'm feeling much better. Problems Identified/Issues Discussed: Patient seen, chart reviewed, case discussed with the staff. Issues related to illness and treatment were discussed with the patient and staff. Reported compliant with treatment with no adverse affects. Tolerating treatment very well. Calm and cooperative. Mood reported as good. Affect appropriate. Aftercare discussed with the patient. Patient was awake, alert and oriented 3. Denied any delusions, auditory or visual hallucinations, suicidal ideations or homicidal ideations at the time of evaluation. Medical Problems: Hypertension Diabetes mellitus Congestive heart failure Chronic renal failure on dialysis Diagnostic Results: Reviewed DSM 5 Symptoms Update: Improving with treatment Medication Change: No Medical Record Reviewed: Yes Consults ordered or reviewed: Reviewed Mental Status Examination - Cognitive Function Orientation: Person, Place, Situation, Time Memory: Intact Attention: WNL Concentration: WNL Association: [facility] Fund of Knowledge: [facility] Decription of patient's judgement and insights: Fair - Mood Mood: Depressed (Much less than before) - Affect Affect: Depressed - Speech Speech: Appropriate - Formal Thought Process Formal Thought Process: No Impairment Psychotic Thoughts and Behaviors: None - Suicidal Ideation Suicidal Ideation: No - Homicidal Ideation Homicidal Ideation: No Goal/Treatment Plan - Goal/Treatment Plan Need for Continued Stay: Remain at risks for inpatient hospitalization, Discharge may exacerbated symptoms, Severe functional impairment Progress Toward Problem(s) and Goals/Treatment Plan: Improving with treatment. Patient education. Supportive therapy. Continue treatment as before. Estimated Date of D/C: 07/01/18 - Smoking Cessation Smoking Cessation Initiated: No
[2018-06-29] MEDS: (Novolin R) Insulin Human Regular 100 units/ml vial SC SCH ×4 (08:09→21:58)
--- NOTE | 2018-06-29 15:42 | PCM.PYCHPN ---
Psychiatric Progress Note - Psychiatric Progress Note Patient seen today, length of contact: 15 minutes Patient Chief Complaint: I'm feeling much better. When can I go home. Problems Identified/Issues Discussed: Patient seen, chart reviewed, case discussed with the staff. Issues related to illness and treatment were discussed with the patient and staff. Reported compliant with treatment with no adverse affects. Tolerating treatment very well. Patient reported feeling much better. Calm and cooperative. Mood reported as good. Affect appropriate. Aftercare discussed with the patient. Patient was awake, alert and oriented 3. Denied any delusions, auditory or visual hallucinations, suicidal ideations or homicidal ideations at the time of evaluation. Medical Problems: Hypertension Diabetes mellitus Congestive heart failure Chronic renal failure on dialysis Diagnostic Results: Reviewed DSM 5 Symptoms Update: Improving with treatment. Medication Change: No Medical Record Reviewed: Yes Consults ordered or reviewed: Reviewed Mental Status Examination - Cognitive Function Orientation: Person, Place, Situation, Time Memory: Intact Attention: WNL Concentration: WNL Association: [facility] Fund of Knowledge: [facility] Decription of patient's judgement and insights: Fair - Mood Mood: Neutral - Affect Affect: Other (Appropriate) - Speech Speech: Appropriate - Formal Thought Process Formal Thought Process: No Impairment Psychotic Thoughts and Behaviors: None - Suicidal Ideation Suicidal Ideation: No - Homicidal Ideation Homicidal Ideation: No Goal/Treatment Plan - Goal/Treatment Plan Need for Continued Stay: Remain at risks for inpatient hospitalization, Discharge may exacerbated symptoms, Severe functional impairment Progress Toward Problem(s) and Goals/Treatment Plan: Improving with treatment. Patient education. Supportive therapy. Continue treatment as before. Estimated Date of D/C: 07/01/18 - Smoking Cessation Smoking Cessation Initiated: No
[2018-06-30] MEDS: (Novolin R) Insulin Human Regular 100 units/ml vial SC SCH ×4 (08:11→22:15)
[2018-06-30 09:48] LABS: BASO # 0.1 K/uL (0.0-0.2); BASO % 0.8 % (0.0-2.0); EOS # 0.5 K/uL (0.0-0.7); EOS % 4.3 % (0.0-4.0); LYMPH # 1.1 K/uL (1.0-4.3); MEAN CELL VOLUME 84.9 fL (81.0-99.0); MEAN CORPUSCULAR HEMOGLOBIN 27.2 pg (27.0-31.0); MONO # 1.3 K/uL (0.0-0.8); MONO % 11.5 % (0.0-10.0); NEUT # 8.3 K/uL (1.8-7.0); NEUT % 73.4 % (50.0-75.0); RBC 3.32 Mil/uL (3.80-5.20); RED CELL DISTRIBUTION WIDTH 17.1 % (11.5-14.5); WHITE BLOOD COUNT 11.3 K/uL (4.8-10.8)
[2018-06-30 10:23] LABS: ALB/GLOB RATIO 0.6 (1.0-2.1); ALBUMIN 3.7 g/dL (3.5-5.0); CALCIUM 8.3 mg/dl (8.6-10.4)
--- NOTE | 2018-06-30 11:07 | PCM.PYCHPN ---
Psychiatric Progress Note - Psychiatric Progress Note Patient seen today, length of contact: 15 minutes Patient Chief Complaint: "I m feeling much better" Problems Identified/Issues Discussed: Patient seen and evaluated, chart reviewed and discussed with the nurse. Pt reports improvement in her depressed mood, and reports improvement in feelings of hopelessness and helplessness. She remained isolated and withdrawn, and just came from dialysis. She denies any AVH or any paranoia. Patient is compliant with medications and denies any side effects. Symptoms are improving but pt needs more time to stabilize. Support and psychoeducation given. Medication Change: Yes Medical Record Reviewed: Yes Mental Status Examination - Cognitive Function Orientation: Person, Place, Situation, Time Memory: Intact Attention: WNL Concentration: Poor Association: WNL Fund of Knowledge: Poor - Mood Mood: Depressed - Affect Affect: Constricted, Depressed - Speech Speech: Appropriate - Formal Thought Process Formal Thought Process: No Impairment - Suicidal Ideation Suicidal Ideation: No - Homicidal Ideation Homicidal Ideation: No Goal/Treatment Plan - Goal/Treatment Plan Need for Continued Stay: Severe depression anxiety, Severe functional impairment Progress Toward Problem(s) and Goals/Treatment Plan: 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
[2018-06-30] MEDS: Epoetin Alfa 10,000 unit/ml Dialysis IV SCH (11:08)
--- NOTE | 2018-06-30 12:08 | CP.PCM.PN ---
Subjective - Date & Time of Evaluation Date of Evaluation: 06/30/18 Time of Evaluation: 12:01 - Subjective Subjective: Seen at dialysis Not dyspneic, no CPs, n, V ,fevers,chills As per psych - on multiple psych meds BP controlled Hg remains low- on ESAs Objective - Vital Signs/Intake and Output Vital Signs (last 24 hours): Temp Pulse Resp BP Pulse Ox 98.8 F 102 H 17 147/80 96 06/30/18 09:20 06/30/18 09:20 06/30/18 09:20 06/30/18 11:20 06/30/18 09:20 - Medications Medications: Current Medications Acetaminophen (Tylenol 325mg Tab) 325 mg PO Q6 PRN PRN Reason: Pain, moderate (4-7) Last Admin: 06/29/18 15:02 Dose: 325 mg Amlodipine Besylate (Norvasc) 5 mg PO DAILY [facility] Last Admin: 06/29/18 09:54 Dose: 5 mg Carvedilol (Coreg) 6.25 mg PO BID [facility] Last Admin: 06/29/18 17:22 Dose: 6.25 mg Cinacalcet (Sensipar) 30 mg PO DAILY [facility] Last Admin: 06/29/18 09:54 Dose: 30 mg Clonidine HCl (Catapres) 0.1 mg PO Q6H PRN PRN Reason: High blood pressure Last Admin: 06/26/18 06:04 Dose: 0.1 mg Clopidogrel Bisulfate (Plavix) 75 mg PO DAILY [facility] Last Admin: 06/29/18 09:54 Dose: 75 mg Dextrose (Glutose 15) 0 gm PO ONCE PRN; Protocol PRN Reason: Hypoglycemia Protocol Diphenhydramine HCl (Benadryl) 25 mg PO Q6 PRN PRN Reason: Allergy symptoms Last Admin: 06/26/18 22:10 Dose: 25 mg Epoetin Kevin (Procrit) 10,000 unit IV MWF [facility] Last Admin: 06/30/18 11:08 Dose: 10,000 unit Famotidine (Pepcid) 20 mg PO DAILY [facility] Last Admin: 06/29/18 09:54 Dose: 20 mg Glucagon (Glucagen Diagnostic Kit) 0 mg IM STAT PRN; Protocol PRN Reason: Hypoglycemia Protocol Insulin Human Regular (Novolin R) 0 unit SC [facility] PRN Reason: Protocol Last Admin: 06/30/18 08:11 Dose: 4 units Mirtazapine (Remeron) 45 mg PO HS [facility] Last Admin: 06/29/18 22:14 Dose: 45 mg Rosuvastatin Calcium (Crestor) 10 mg PO HS [facility] Last Admin: 06/29/18 22:14 Dose: 10 mg Sertraline HCl (Zoloft) 200 mg PO DAILY [facility] Last Admin: 06/29/18 09:54 Dose: 200 mg Sevelamer Carbonate (Renvela) 800 mg PO TID [facility] Last Admin: 06/29/18 17:21 Dose: 800 mg - Labs Labs: 06/30/18 09:39 06/30/18 09:39 - Constitutional Appears: No Acute Distress, Chronically Ill - Head Exam Head Exam: ATRAUMATIC, NORMAL INSPECTION - Eye Exam Eye Exam: EOMI, Normal appearance - Neck Exam Neck Exam: Normal Inspection. absent: Tenderness - Respiratory Exam Respiratory Exam: Clear to Ausculation Bilateral, NORMAL BREATHING PATTERN - Cardiovascular Exam Cardiovascular Exam: REGULAR RHYTHM, +S1 - GI/Abdominal Exam GI & Abdominal Exam: Soft. absent: Tenderness - Extremities Exam Extremities Exam: Normal Inspection. absent: Tenderness - Neurological Exam Neurological Exam: Awake, CN II-XII Intact - Skin Skin Exam: Dry, Warm Assessment and Plan (1) Type 2 diabetes mellitus with diabetic nephropathy Status: Acute (2) Essential (primary) hypertension Status: Acute (3) CHF (congestive heart failure) Status: Acute (4) Suicide attempt Status: Acute (5) End stage renal disease Status: Acute - Assessment and Plan (Free Text) Plan: dialysis MWF continue EPO [facility]
[2018-06-30 14:52] VITALS: RESP 18
[2018-06-30 15:56] VITALS: O2SAT 97
[2018-07-01 06:44] VITALS: BP 142/85; PULSE 105; TEMP 99.9
[2018-07-01] MEDS: (Novolin R) Insulin Human Regular 100 units/ml vial SC SCH (08:26)
--- NOTE | 2018-07-01 10:33 | PCM.PYCHDC ---
Mental Status Examination - Mental Status Examination Orientation: Person, Place, Situation, Time Memory: Intact Mood: Neutral Affect: Constricted Speech: Soft Attention: WNL Concentration: WNL Association: WNL Fund of Knowledge: WNL Formal Thought Process: No Impairment Description of patient's judgement and insight: good, fair Psychotic Thoughts and Behaviors: denies any AVH Suicidal Ideation: No Current Homicidal Ideation?: No Discharge Summary - Discharge Note Reason for Hospitalization: Pt is seen, chart reviewed, case discussed with staff. Pt is a 43 y/o AAF, single with a grown daughter that presented to the ER after trying to overdose on 15 tablets of Clonidine. She told her mother, whom she lives with, what she did which is when she called an ambulance for her. Pt says that she still has thoughts of killing herself currently. Pt states that she has had suicidal ideations for the past week, states that there was no specific trigger, just that she's "tired of being sick." She says that she has been on dialysis for past 2 years, has diabetes since she was in her 20s, HTN, and CHF. She reports depressed mood, feelings of hopelessness and helplessness. Hoever sge denies any AVH or any paranoia. Pt denies using tobacco , drugs, and alcohol. Pt walks with a walker. Past medical hx: (dialysis, diabetes, HTN, CHF) Past psych hx: denies any psych hx, denies anxiety, mind-racing, (+) for hopelessness Pt denies, auditory and visual hallucinations, thoughts of hurting others, N/V/D , abd pain, chills and fever. Positive for headache which she describes as wrapping around her head. Normal appetite Laboratory Data: Abnormal Lab Results 06/27/18 06/28/18 06/28/18 20:14 07:34 11:38 POC Glucose (mg/dL) 232 H 290 H 375 H % Saturation Ferritin 06/28/18 06/28/18 06/29/18 16:10 21:20 07:44 POC Glucose (mg/dL) 235 H 286 H 355 H % Saturation Ferritin 06/29/18 06/29/18 06/29/18 11:14 16:09 20:59 POC Glucose (mg/dL) 290 H 173 H 224 H % Saturation Ferritin 06/30/18 06/30/18 06/30/18 08:04 12:26 16:08 POC Glucose (mg/dL) 282 H 116 H 207 H % Saturation Ferritin 06/30/18 07/01/18 07/01/18 20:07 08:03 08:27 POC Glucose (mg/dL) 253 H 312 H % Saturation 5 L Ferritin 07/01/18 08:27 POC Glucose (mg/dL) % Saturation Ferritin 653.0 Consultations:: List each consultation separately and include: 1. Reason for request. 2. Findings. 3. Follow-up Summary of Hospital Course include:: 1. Description of specific treatment plan utilized for patients during their course of treatmen. 2. Summarize the time- course for resolution of acute symptoms and/or regressed behaviors. 3. Describe issues identified and worked on during hospitalization. 4. Describe medication utilized. 5. Describe medical problems identified and treated. 6. Reassessment of suicide risk Summary of Hospital Course: During the course of her stay, patient (pt) started progressively improving and no longer remained irritable, depressed, and suicidal. Her mood and anxiety were improved and she started attending groups and meetings and started socializing. Patient denied any feelings of hopelessness, helplessness, and worthlessness, denied any problem with the sleep or appetite, denied suicidal ideation or homicidal ideation. Pt denied any auditory or visual hallucinations. She denied any withdrawal symptoms. Pt was treated with medications along with supportive therapy, milieu therapy and group therapy. Some changes were made in her current medications and patient was discharged on following medications. She tolerated these medications very well and denied any side effects. [facility] 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 Education: Pt was educated and counseled about the risks and benefits of taking and not taking medications. Pt was educated and counseled about the risks of drinking and abusing drugs. Pt was educated and counseled to go to the ER or call 911 if pt develop suicidal ideation or homicidal ideation, worsening of symptoms or severe side effects of the meds. Prescriptions/Medication Reconciliation: amLODIPine [Norvasc] 5 mg PO DAILY #30 tab Atorvastatin [Lipitor] 20 mg PO DAILY #30 tab Carvedilol [Coreg] 6.25 mg PO BID #60 tab Cinacalcet [Sensipar] 30 mg PO DAILY #30 tab Clopidogrel [Plavix] 75 mg PO DAILY #30 tab Famotidine [Pepcid] 20 mg PO DAILY #30 tab Mirtazapine [Remeron] 45 mg PO HS #30 tab Sertraline [Zoloft] 100 mg PO DAILY #60 tab Sevelamer [Renagel] 800 mg PO TID #90 tab - Smoking Cessation Smoking Cessation Medication prescribed: No - Antipsychotic Medications Pt discharged on 2 or more routine antipsychotic medications: No
== END 2018-07-01 11:10 | disposition home or self-care (01) | DRG 917 ==
LOC: C.ER 19:33 → C.9I 21:52 → C.6T 06-19 13:31 → C.5E 06-22 00:10
PROVIDERS: ADMIT Psychiatry & Neurology Psychiatry; ATTEND Psychiatry & Neurology Psychiatry
PROC: 5A1D70Z Performance of Urinary Filtration, Intermittent, Less than 6 Hours Per Day (ICD-10-PCS; principal; 2018-06-20)
PROC: 5A1D70Z Performance of Urinary Filtration, Intermittent, Less than 6 Hours Per Day (ICD-10-PCS; 2018-06-23)
PROC: 5A1D70Z Performance of Urinary Filtration, Intermittent, Less than 6 Hours Per Day (ICD-10-PCS; 2018-06-25)
PROC: 5A1D70Z Performance of Urinary Filtration, Intermittent, Less than 6 Hours Per Day (ICD-10-PCS; 2018-06-27)
PROC: 5A1D70Z Performance of Urinary Filtration, Intermittent, Less than 6 Hours Per Day (ICD-10-PCS; 2018-06-30)
DX: T46.5X2A Poisoning by other antihypertensive drugs, intentional self-harm, initial encounter (principal); N18.6 End stage renal disease; I13.2 Hypertensive heart and chronic kidney disease with heart failure and with stage 5 chronic kidney disease, or end stage renal disease; F33.2 Major depressive disorder, recurrent severe without psychotic features; Y92.009 Unspecified place in unspecified non-institutional (private) residence as the place of occurrence of the external cause; F41.9 Anxiety disorder, unspecified; I50.9 Heart failure, unspecified; J44.9 Chronic obstructive pulmonary disease, unspecified; Z79.4 Long term (current) use of insulin; E11.22 Type 2 diabetes mellitus with diabetic chronic kidney disease; E11.21 Type 2 diabetes mellitus with diabetic nephropathy; Z86.73 Personal history of transient ischemic attack (TIA), and cerebral infarction without residual deficits; Z99.2 Dependence on renal dialysis

== ENCOUNTER 2018-08-22 06:46 | Inpatient (IN) | payer MEDICARE, OTHER ==
[2018-08-22 06:46] VITALS: BMI 22.8
--- NOTE | 2018-08-22 07:25 | C.PDOC ---
History Of Present Illness 43 y/o female is brought to ED via EMS for evaluation of chest pain. Pt was at the dialysis center today for her scheduled dialysis, when she developed non- radiating chest pain. Pt did not get dialyzed today and was brought here for further evaluation. Otherwise, denies palpitations, cough, shortness of breath, abdominal pain, back pain, n/v/d, or fever. Time Seen by Provider: 08/22/18 07:16 Chief Complaint (Nursing): Chest Pain History Per: Patient History/Exam Limitations: no limitations Onset/Duration Of Symptoms: Days Current Symptoms Are (Timing): Still Present Quality: "Pain" Associated Symptoms: denies: Nausea, Diaphoresis, Syncope Modifying Factors: None Exacerbating Factors: None Alleviating Factors: None Recent travel outside of the [place]: No Additional History Per: Patient Past Medical History Reviewed: Historical Data, Nursing Documentation, Vital Signs Vital Signs: Last Vital Signs Temp 97.8 F 08/22/18 06:56 Pulse 96 H 08/22/18 06:56 Resp 16 08/22/18 06:56 BP 150/90 08/22/18 06:56 Pulse Ox 97 08/22/18 06:56 - Medical History PMH: Anemia, Asthma, CHF, COPD, Depression, Diabetes (IDDM), Gastritis, HTN, Hypercholesterolemia, End Stage Renal Disease, Chronic Kidney Disease Denies: Hyperthyroidism Surgical History: - [facility] Procedures (06/18/18) DILATION OF UPPER VEIN, PERCUTANEOUS APPROACH (01/18/18) DRAINAGE OF PERITONEAL CAVITY, PERCUTANEOUS APPROACH (01/18/18) DRAINAGE OF RIGHT PLEURAL CAVITY, PERC APPROACH, DIAGN (03/14/18) DRAINAGE OF RIGHT PLEURAL CAVITY, PERCUTANEOUS APPROACH (12/18/17) ESOPHAGOGASTRODUODENOSCOPY [EGD] W/CLOSED BIOPSY (06/18/15) EXCISION OF STOMACH, ENDO, DIAGN (09/02/16) INSERT INFUSION DEV IN R INT JUGULAR VEIN, PERC (01/18/18) INSERTION OF ENDOTRACHEAL AIRWAY INTO TRACHEA, VIA OPENING (01/18/18) OTHER SKIN & SUBQ I D (08/07/15) PERFORMANCE OF URINARY FILTRATION, MULTIPLE (09/02/16) PLAIN RADIOGRAPHY OF DIALYSIS SHUNT USING OTH CONTRAST (01/18/18) RESPIRATORY VENTILATION, 24-96 CONSECUTIVE HOURS (01/18/18) TRANSFUSE NONAUT RED BLOOD CELLS IN PERIPH VEIN, PERC (05/23/18) ULTRASONOGRAPHY OF LEFT UPPER EXTREMITY VEINS (09/02/16) ULTRASONOGRAPHY OF RIGHT JUGULAR VEINS, GUIDANCE (01/18/18) Family History: States: Unknown Family Hx - Social History Hx Tobacco Use: No Hx Alcohol Use: No Hx Substance Use: No - Immunization History Hx Tetanus Toxoid Vaccination: No Hx Influenza Vaccination: No Hx Pneumococcal Vaccination: No Review Of Systems Except As Marked, All Systems Reviewed And Found Negative. Constitutional: Negative for: Fever, Chills Cardiovascular: Positive for: Chest Pain. Negative for: Palpitations, Light Headedness Respiratory: Negative for: Cough, Shortness of Breath Gastrointestinal: Negative for: Nausea, Vomiting, Abdominal Pain Neurological: Negative for: Headache, Dizziness Physical Exam - Physical Exam Appears: Non-toxic, No Acute Distress Skin: Normal Color, Warm, Dry Head: Atraumatic, Normacephalic Eye(s): bilateral: Normal Inspection Oral Mucosa: Moist Neck: Normal ROM, Supple Chest: Symmetrical, No Tenderness Cardiovascular: Rhythm Regular, No Murmur Respiratory: Normal Breath Sounds, No Accessory Muscle Use, No Rales, No Rhonchi, No Wheezing Gastrointestinal/Abdominal: Soft, No Tenderness Back: No CVA Tenderness Extremity: Normal ROM, No Pedal Edema Neurological/Psych: Oriented x3, Normal Speech ED Course And Treatment - Laboratory Results Result Diagrams: 08/22/18 07:14 08/22/18 07:14 ECG: Interpreted By Me, Viewed By Vt ECG Rhythm: Sinus Rhythm ECG Interpretation: No Acute Changes Interpretation Of ECG: Non-specific T wave changes. Rate From EC (bpm) O2 Sat by Pulse Oximetry: 97 (RA) Pulse Ox Interpretation: Normal - Other Rad CXR X-Ray: Viewed By Vt, Read By Radiologist Interpretation: Date of service: 08/22/2018. PROCEDURE: CHEST RADIOGRAPH, 1 VIEW. HISTORY: chest pain. COMPARISON: 06/18/2018. FINDINGS: LUNGS: There is dense consolidation in the right mid lung and lower lobe. The left lung is clear. PLEURA: Worsening right pleural effusion. No large left pleural effusion. No pneumothorax. CARDIOVASCULAR: Normal. OSSEOUS STRUCTURES: No significant abnormalities. VISUALIZED UPPER ABDOMEN: Normal. OTHER FINDINGS: None. IMPRESSION: Right mid lung and lower lobe consolidation and right pleural effusion. Follow-up is advised. Persistent mild cardiomegaly. Medical Decision Making Medical Decision Making: Plan: Blood work CXR EKG Aspirin Benadryl Morphine Vancomycin Zosyn Spoke with Dr. Walker, covering for PMD Dr. Martinez, accepts pt for full telemetry admission. Disposition - Disposition Disposition: HOSPITALIZED Disposition Time: 10:06 Condition: FAIR - Clinical Impression Clinical Impression: Chest pain, Pneumonia - PA / FABRICATION LEAD / Resident Statement MD/DO has reviewed & agrees with the documentation as recorded. - Scribe Statement The provider has reviewed the documentation as recorded by the Scribe KP All medical record entries made by the Scribe were at my direction and personall y dictated by me. I have reviewed the chart and agree that the record accurately reflects my personal performance of the history, physical exam, medical decision making, and the department course for this patient. I have also personally directed, reviewed, and agree with the discharge instructions and disposition. Decision To Admit - Pt Status Changed To: Hospital Disposition Of: Inpatient - Admit Certification Admit to Inpatient:: After my assessment, the patient will require h ospitalization for at least two midnights. This is because of the severity of symptoms shown, intensity of services needed, and/or the medical risk in this patient being treated as an outpatient. - InPatient: Physician Admission Certification: I certify that this patient requires 2 or more midnights of care for the following reason:: Patient will need IV ant ibiotics for more than 2 days. - . Bed Request Type: Telemetry Admitting Physician: Bertha Walker Patient Diagnosis: Chest pain, Pneumonia
[2018-08-22 07:40] LABS: ALB/GLOB RATIO 0.7 (1.0-2.1); ALBUMIN 3.6 g/dL (3.5-5.0); CALCIUM 9.7 mg/dl (8.6-10.4)
[2018-08-22 07:51] LABS: TROPONIN I 0.032 ng/mL (0.00-0.120)
[2018-08-22 08:18] LABS: BASO # 0.1 K/uL (0.0-0.2); BASO % 0.9 % (0.0-2.0); EOS # 0.6 K/uL (0.0-0.7); EOS % 5.9 % (0.0-4.0); HEMOGLOBIN 8.8 g/dL (11.0-16.0); LYMPH # 1.2 K/uL (1.0-4.3); LYMPH % 11.7 % (20.0-40.0); MEAN CELL VOLUME 83.2 fL (81.0-99.0); MEAN CORPUSCULAR HEMOGLOBIN 26.3 pg (27.0-31.0); MEAN CORPUSCULAR HGB CONC 31.6 g/dL (33.0-37.0); MEAN PLATELET VOLUME 9.3 fL (7.2-11.7); MONO # 1.1 K/uL (0.0-0.8); MONO % 11.3 % (0.0-10.0); NEUT % 70.2 % (50.0-75.0); RBC 3.33 Mil/uL (3.80-5.20); RED CELL DISTRIBUTION WIDTH 19.1 % (11.5-14.5)
[2018-08-22 08:28] LABS: CK-MB 2.11 ng/mL (0.0-3.38)
--- NOTE | 2018-08-22 08:33 | RAD ---
Date of service: 08/22/2018 PROCEDURE: CHEST RADIOGRAPH, 1 VIEW HISTORY: chest pain COMPARISON: 06/18/2018 FINDINGS: LUNGS: There is dense consolidation in the right mid lung and lower lobe. The left lung is clear. PLEURA: Worsening right pleural effusion. No large left pleural effusion. No pneumothorax. CARDIOVASCULAR: Normal. OSSEOUS STRUCTURES: No significant abnormalities. VISUALIZED UPPER ABDOMEN: Normal. OTHER FINDINGS: None. IMPRESSION: Right mid lung and lower lobe consolidation and right pleural effusion. Follow-up is advised. Persistent mild cardiomegaly.
[2018-08-22] MEDS ORDERED: Piperacillin/Tazobact 3.375 gm 100 ML IV STA (10:01)
[2018-08-22] MEDS ORDERED: Vancomycin 1 GM 1 GM/250 ML BAG IV STA (10:01)
[2018-08-22] MEDS ORDERED: Piperacillin/Tazobact 3.375 gm 100 ML IVPB ONE (10:46)
[2018-08-22] MEDS ORDERED: Vancomycin 1 gm/NS 200 ml 1 GM/200 ML BAG IVPB ONE (11:00)
[2018-08-22] MEDS ORDERED: DiphenhydrAMINE 50 mg/ml Inj IVP STA (11:37)
[2018-08-22] MEDS ORDERED: DiphenhydrAMINE 50 mg/ml Inj ONE (11:43)
[2018-08-22] MEDS ORDERED: Dextrose 50% SYRINGE Inj (50 ml) IV PRN (16:23)
[2018-08-22] MEDS ORDERED: Glucagon Recombinant 1 mg Inj IM PRN (16:23)
[2018-08-22] MEDS: (Novolog) Insulin Aspart, Recombinant 100 u/ml 10 ml vial SC SCH ×2 (17:36→21:49)
--- NOTE | 2018-08-22 17:55 | CP.PCM.HP ---
Past Patient History - Infectious Disease Hx of Infectious Diseases: None - Past Medical History & Family History Past Medical History?: Yes - Past Social History Smoking Status: Never Smoked - CARDIAC Hx Cardiac Disorders: Yes Hx Congestive Heart Failure: Yes Hx Hypercholesterolemia: Yes Hx Hypertension: Yes - PULMONARY Hx Respiratory Disorders: Yes Hx Asthma: Yes Hx Chronic Obstructive Pulmonary Disease (COPD): Yes - NEUROLOGICAL Hx Neurological Disorder: Yes HX Cerebrovascular Accident: Yes (01/2016, left sided weakness) - HEENT Hx HEENT Problems: Yes Other/Comment: Wears Eyeglasses - RENAL Date of Last Dialysis Treatment: 08/20/18 - ENDOCRINE/METABOLIC Hx Endocrine Disorders: Yes Hx Diabetes Mellitus Type 2: Yes Hx Hyperthyroidism: No - HEMATOLOGICAL/ONCOLOGICAL Hx Blood Disorders: Yes Hx Anemia: Yes - INTEGUMENTARY Hx Dermatological Problems: No - MUSCULOSKELETAL/RHEUMATOLOGICAL Hx Musculoskeletal Disorders: Yes Hx Back Pain: Yes Hx Falls: No - GASTROINTESTINAL Hx Gastrointestinal Disorders: Yes Hx Gastritis: Yes - GENITOURINARY/GYNECOLOGICAL Hx Genitourinary Disorders: No - PSYCHIATRIC Hx Psychophysiologic Disorder: Yes Hx Depression: Yes Hx Substance Use: No Other/Comment: Suicidal ideation and attempt 06/2018. Denies current suicidal ideation at this time. - SURGICAL HISTORY Hx Surgeries: Yes Hx Section: Yes Other/Comment: Insertion Of HD Cath on the R Internal Jugular; left forearm graft for dialysis. left upper arm av shunt - ANESTHESIA Hx Anesthesia: Yes Hx Anesthesia Reactions: No Hx Malignant Hyperthermia: No Has any member of the family had a problem w/ anesthesia?: No Meds Allergies/Adverse Reactions: Allergies Allergy/AdvReac Type Severity Reaction Status Date / Time piperacillin [From Zosyn] Allergy Mild ITCHING Verified 08/22/18 14:41 tazobactam [From Zosyn] Allergy Mild ITCHING Verified 08/22/18 14:41 Results - Vital Signs Recent Vital Signs: Last Vital Signs Temp 97.6 F 08/22/18 15:40 Pulse 102 H 08/22/18 16:45 Resp 94 H 08/22/18 15:40 BP 164/87 H 08/22/18 15:40 Pulse Ox 97 08/22/18 16:13 - Labs Result Diagrams: 08/22/18 07:14 08/22/18 07:14 Labs: Laboratory Results - last 24 hr 08/22/18 08/22/18 08/22/18 07:14 07:14 16:00 WBC 10.0 RBC 3.33 L Hgb 8.8 L Hct 27.7 L MCV 83.2 MCH 26.3 L MCHC 31.6 L RDW 19.1 H Plt Count 217 MPV 9.3 Neut % (Auto) 70.2 Lymph % (Auto) 11.7 L Sandoval % (Auto) 11.3 H Eos % (Auto) 5.9 H Baso % (Auto) 0.9 Neut # (Auto) 7.0 Lymph # (Auto) 1.2 Sandoval # (Auto) 1.1 H Eos # (Auto) 0.6 Baso # (Auto) 0.1 Sodium 139 Potassium 4.2 Chloride 93 L Carbon Dioxide 29 Anion Gap 21 H BUN 47 H Creatinine 5.9 H Est GFR ( Amer) 9 Est GFR (Non-Af Amer) 8 POC Glucose (mg/dL) 122 H Random Glucose 293 H Calcium 9.7 Total Bilirubin 2.5 H AST 77 H D ALT 51 Alkaline Phosphatase 1290 H Total Creatine Kinase 58 CK-MB (Mass) 2.11 Troponin I 0.0320 Total Protein 9.2 H Albumin 3.6 Globulin 5.6 H Albumin/Globulin Ratio 0.7 L Assessment & Plan (1) COPD (chronic obstructive pulmonary disease) Status: Acute (2) Pleural effusion Status: Acute (3) Chest pain Status: Acute (4) CHF (congestive heart failure) Status: Acute (5) Diabetes mellitus Status: Acute (6) ESRD (end stage renal disease) on dialysis Status: Acute (7) Hypertension Status: Chronic (8) Pneumonia Status: Acute
[2018-08-23] MEDS: Oxycodone/Acetaminophen 5/325 mg Tab PO PRN ×2 (00:30→18:20)
[2018-08-23] MEDS: (Novolog) Insulin Aspart, Recombinant 100 u/ml 10 ml vial SC SCH ×4 (06:32→21:55)
[2018-08-23] MEDS: Albuterol-Ipratrop 3 mg / 0.5 (3 ml) UD IH SCH ×9 (06:43→23:50)
[2018-08-23] MEDS: Fluticasone-Vilanterol 100/25mcg Diskus INH SCH (09:15)
[2018-08-23] MEDS ORDERED: Pneumococcal 23-Valent Vaccine IM ONE (10:00)
--- NOTE | 2018-08-23 10:14 | CP.PCM.CON ---
History of Present Illness - History of Present Illness History of Present Illness: 43 y/o female is brought to ED via EMS for evaluation of chest pain. Pt was at the dialysis center yesterday for her scheduled dialysis, when she developed non-radiating chest pain. Pt did not get dialyzed yesterday Otherwise, denies palpitations, cough, shortness of breath, abdominal pain, back pain, n/v/d, or fever. PMHx- ESRD on HD, HTN, DM PSH- av fistula creation Social- no smoking, alcohol or drugs Family- no family history of ESRD Review of Systems - Review of Systems All systems: reviewed and no additional remarkable complaints except Review of Systems: as per hpi, other than that 10 point ROS negative Past Patient History - Infectious Disease Hx of Infectious Diseases: None - Past Medical History & Family History Past Medical History?: Yes - Past Social History Smoking Status: Never Smoked - CARDIAC Hx Cardiac Disorders: Yes Hx Congestive Heart Failure: Yes Hx Hypercholesterolemia: Yes Hx Hypertension: Yes - PULMONARY Hx Respiratory Disorders: Yes Hx Asthma: Yes Hx Chronic Obstructive Pulmonary Disease (COPD): Yes - NEUROLOGICAL Hx Neurological Disorder: Yes HX Cerebrovascular Accident: Yes (01/2016, left sided weakness) - HEENT Hx HEENT Problems: Yes Other/Comment: Wears Eyeglasses - RENAL Date of Last Dialysis Treatment: 08/20/18 - ENDOCRINE/METABOLIC Hx Endocrine Disorders: Yes Hx Diabetes Mellitus Type 2: Yes Hx Hyperthyroidism: No - HEMATOLOGICAL/ONCOLOGICAL Hx Blood Disorders: Yes Hx Anemia: Yes - INTEGUMENTARY Hx Dermatological Problems: No - MUSCULOSKELETAL/RHEUMATOLOGICAL Hx Musculoskeletal Disorders: Yes Hx Back Pain: Yes Hx Falls: No - GASTROINTESTINAL Hx Gastrointestinal Disorders: Yes Hx Gastritis: Yes - GENITOURINARY/GYNECOLOGICAL Hx Genitourinary Disorders: No - PSYCHIATRIC Hx Psychophysiologic Disorder: Yes Hx Depression: Yes Hx Substance Use: No Other/Comment: Suicidal ideation and attempt 06/2018. Denies current suicidal ideation at this time. - SURGICAL HISTORY Hx Surgeries: Yes Hx Section: Yes Other/Comment: Insertion Of HD Cath on the R Internal Jugular; left forearm graft for dialysis. left upper arm av shunt - ANESTHESIA Hx Anesthesia: Yes Hx Anesthesia Reactions: No Hx Malignant Hyperthermia: No Has any member of the family had a problem w/ anesthesia?: No Meds Allergies/Adverse Reactions: Allergies Allergy/AdvReac Type Severity Reaction Status Date / Time piperacillin [From Zosyn] Allergy Mild ITCHING Verified 08/22/18 14:41 tazobactam [From Zosyn] Allergy Mild ITCHING Verified 08/22/18 14:41 - Medications Medications: Current Medications Acetaminophen (Tylenol 325mg Tab) 325 mg PO Q4 PRN PRN Reason: Pain, Mild (1-3) Albuterol/Ipratropium (Duoneb 3 Mg/0.5 Mg (3 Ml) Ud) 3 ml IH RQ4 [facility] Last Admin: 08/23/18 09:16 Dose: 3 ml Amlodipine Besylate (Norvasc) 5 mg PO DAILY [facility] Aspirin (Ecotrin) 81 mg PO DAILY [facility] Carvedilol (Coreg) 6.25 mg PO BID [facility] Last Admin: 08/22/18 17:38 Dose: 6.25 mg Cinacalcet (Sensipar) 30 mg PO DAILY [facility] Clopidogrel Bisulfate (Plavix) 75 mg PO DAILY [facility] Dextrose (Dextrose 50% Inj) 0 ml IV STAT PRN; Protocol PRN Reason: Hypoglycemia Protocol Dextrose (Glutose 15) 0 gm PO ONCE PRN; Protocol PRN Reason: Hypoglycemia Protocol Ergocalciferol (Drisdol 50,000 Intl Units Cap) 1 cap PO QWK [facility] Famotidine (Pepcid) 20 mg PO DAILY [facility] Fluticasone/Vilanterol (Breo Ellipta 100-25 Mcg Inh) 1 puff INH RQD [facility] Last Admin: 08/23/18 09:15 Dose: 1 puff Gabapentin (Neurontin) 100 mg PO DAILY [facility] Glucagon (Glucagen Diagnostic Kit) 0 mg IM STAT PRN; Protocol PRN Reason: Hypoglycemia Protocol Heparin Sodium (Porcine) (Heparin) 5,000 units SC Q12 [facility] Last Admin: 08/22/18 21:49 Dose: 5,000 units Dextrose (Dextrose 5% In Water 1000 Ml) 1,000 mls @ 0 mls/hr IV .Q0M PRN; Protocol PRN Reason: Hypoglycemia Protocol Insulin Aspart (Novolog) 0 unit SC ACHS [facility]; Protocol Last Admin: 08/23/18 06:32 Dose: Not Given Lactulose (Enulose) 10 gm PO DAILY PRN PRN Reason: Constipation Metoprolol Tartrate (Lopressor) 50 mg PO BID [facility] Last Admin: 08/22/18 17:38 Dose: 50 mg Mirtazapine (Remeron) 45 mg PO [facility] Last Admin: 08/22/18 21:50 Dose: 45 mg Multivitamins (Hexavitamin) 1 tab PO DAILY [facility] Oxycodone/Acetaminophen (Percocet 5/325 Mg Tab) 1 tab PO Q6H PRN PRN Reason: Pain, moderate (4-7) Stop: 08/25/18 18:16 Last Admin: 08/23/18 00:30 Dose: 1 tab Rosuvastatin Calcium (Crestor) 10 mg PO [facility] Last Admin: 08/22/18 21:49 Dose: 10 mg Sertraline HCl (Zoloft) 100 mg PO DAILY [facility] Sevelamer Carbonate (Renvela) 800 mg PO TID [facility] Last Admin: 08/22/18 17:38 Dose: 800 mg Physical Exam - Constitutional Appears: Non-toxic, Chronically Ill - Head Exam Head Exam: ATRAUMATIC, NORMOCEPHALIC - Eye Exam Eye Exam: EOMI, PERRL - ENT Exam ENT Exam: Mucous Membranes Moist - Neck Exam Neck exam: Negative for: Lymphadenopathy - Respiratory Exam Respiratory Exam: Clear to Auscultation Bilateral. absent: Rhonchi, Wheezes - Cardiovascular Exam Cardiovascular Exam: REGULAR RHYTHM, +S1, +S2 - GI/Abdominal Exam GI & Abdominal Exam: Soft. absent: Distended, Tenderness - Extremities Exam Extremities exam: Negative for: joint swelling, pedal edema - Neurological Exam Neurological exam: Alert, Oriented x3 - Psychiatric Exam Psychiatric exam: Normal Affect, Normal Mood - Skin Skin Exam: Dry, Normal Color Results - Vital Signs Recent Vital Signs: Last Vital Signs Temp 97.5 F L 08/23/18 07:00 Pulse 85 08/23/18 08:57 Resp 18 08/23/18 07:00 BP 164/89 H 08/23/18 07:00 Pulse Ox 96 08/23/18 07:00 - Labs Result Diagrams: 08/22/18 07:14 08/22/18 07:14 Labs: Laboratory Results - last 24 hr 08/22/18 08/22/18 08/22/18 16:00 19:48 20:58 POC Glucose (mg/dL) 122 H 86 Troponin I 0.0230 08/23/18 08/23/18 06:13 07:32 POC Glucose (mg/dL) 78 Troponin I 0.0290 Assessment & Plan (1) COPD (chronic obstructive pulmonary disease) Status: Acute (2) Chest pain Status: Acute (3) Anemia Status: Acute (4) CHF exacerbation Status: Acute (5) Diabetes mellitus with ESRD (end-stage renal disease) Status: Acute (6) ESRD (end stage renal disease) Status: Acute (7) Essential (primary) hypertension Status: Acute - Assessment and Plan (Free Text) Plan: HD today as missed yesterday resume BP meds epo for anemia cardiology eval for chest pain
[2018-08-23] MEDS: Multiple Vitamins Tab PO SCH (10:15)
--- NOTE | 2018-08-23 17:46 | CP.PCM.PN ---
Subjective - Date & Time of Evaluation Date of Evaluation: 08/23/18 Objective - Vital Signs/Intake and Output Vital Signs (last 24 hours): Temp Pulse Resp BP Pulse Ox 97.3 F L 90 18 166/98 H 100 08/23/18 17:25 08/23/18 15:03 08/23/18 17:25 08/23/18 17:25 08/23/18 17:25 Intake and Output: 08/23/18 08/23/18 06:59 18:59 Intake Total 100 Balance 100 - Medications Medications: Current Medications Acetaminophen (Tylenol 325mg Tab) 325 mg PO Q4 PRN PRN Reason: Pain, Mild (1-3) Albuterol/Ipratropium (Duoneb 3 Mg/0.5 Mg (3 Ml) Ud) 3 ml IH RQ4 [facility] Last Admin: 08/23/18 16:03 Dose: Not Given Amlodipine Besylate (Norvasc) 5 mg PO DAILY [facility] Last Admin: 08/23/18 10:15 Dose: Not Given Aspirin (Ecotrin) 81 mg PO DAILY [facility] Last Admin: 08/23/18 10:14 Dose: Not Given Carvedilol (Coreg) 6.25 mg PO BID [facility] Last Admin: 08/23/18 10:14 Dose: Not Given Cinacalcet (Sensipar) 30 mg PO DAILY [facility] Last Admin: 08/23/18 10:16 Dose: Not Given Clopidogrel Bisulfate (Plavix) 75 mg PO DAILY [facility] Last Admin: 08/23/18 10:16 Dose: Not Given Dextrose (Dextrose 50% Inj) 0 ml IV STAT PRN; Protocol PRN Reason: Hypoglycemia Protocol Dextrose (Glutose 15) 0 gm PO ONCE PRN; Protocol PRN Reason: Hypoglycemia Protocol Ergocalciferol (Drisdol 50,000 Intl Units Cap) 1 cap PO QWK [facility] Famotidine (Pepcid) 20 mg PO DAILY [facility] Last Admin: 08/23/18 10:15 Dose: Not Given Fluticasone/Vilanterol (Breo Ellipta 100-25 Mcg Inh) 1 puff INH RQD [facility] Last Admin: 08/23/18 09:15 Dose: 1 puff Gabapentin (Neurontin) 100 mg PO DAILY [facility] Last Admin: 08/23/18 10:15 Dose: Not Given Glucagon (Glucagen Diagnostic Kit) 0 mg IM STAT PRN; Protocol PRN Reason: Hypoglycemia Protocol Heparin Sodium (Porcine) (Heparin) 5,000 units SC Q12 [facility] Last Admin: 08/23/18 10:15 Dose: Not Given Dextrose (Dextrose 5% In Water 1000 Ml) 1,000 mls @ 0 mls/hr IV .Q0M PRN; Pr otocol PRN Reason: Hypoglycemia Protocol Insulin Aspart (Novolog) 0 unit SC ACHS [facility]; Protocol Last Admin: 08/23/18 14:00 Dose: Not Given Lactulose (Enulose) 10 gm PO DAILY PRN PRN Reason: Constipation Metoprolol Tartrate (Lopressor) 50 mg PO BID [facility] Last Admin: 08/23/18 10:15 Dose: Not Given Mirtazapine (Remeron) 45 mg PO HS [facility] Last Admin: 08/22/18 21:50 Dose: 45 mg Multivitamins (Hexavitamin) 1 tab PO DAILY [facility] Last Admin: 08/23/18 10:15 Dose: Not Given Oxycodone/Acetaminophen (Percocet 5/325 Mg Tab) 1 tab PO Q6H PRN PRN Reason: Pain, moderate (4-7) Stop: 08/25/18 18:16 Last Admin: 08/23/18 00:30 Dose: 1 tab Rosuvastatin Calcium (Crestor) 10 mg PO HS [facility] Last Admin: 08/22/18 21:49 Dose: 10 mg Sertraline HCl (Zoloft) 100 mg PO DAILY [facility] Last Admin: 08/23/18 10:16 Dose: Not Given Sevelamer Carbonate (Renvela) 800 mg PO TID [facility] Last Admin: 08/23/18 14:01 Dose: Not Given - Labs Labs: 08/22/18 07:14 08/22/18 07:14 Assessment and Plan (1) COPD (chronic obstructive pulmonary disease) Status: Acute (2) Pleural effusion Status: Acute (3) Chest pain Status: Acute (4) CHF (congestive heart failure) Status: Acute (5) Diabetes mellitus Status: Acute (6) ESRD (end stage renal disease) on dialysis Status: Acute (7) Hypertension Status: Chronic (8) Pneumonia Status: Acute
--- NOTE | 2018-08-23 22:46 | CP.PCM.CON ---
History of Present Illness - History of Present Illness History of Present Illness: 43 y/o female is brought to ED via EMS for evaluation of chest pain. Pt was at the dialysis center today for her scheduled dialysis, when she developed non- radiating chest pain. Pt did not get dialyzed was brought here for further renyaldo luation. Otherwise, denies palpitations, cough, shortness of breath, abdominal pain, back pain, n/v/d, or fever. Chief Complaint (Nursing): Chest Pain History Per: Patient History/Exam Limitations: no limitations Onset/Duration Of Symptoms: Days Current Symptoms Are (Timing): Still Present Quality: "Pain" Associated Symptoms: denies: Nausea, Diaphoresis, Syncope Modifying Factors: None Exacerbating Factors: None Alleviating Factors: None Recent travel outside of the [place]: No Additional History Per: Patient - Medical History PMH: Anemia, Asthma, CHF, COPD, Depression, Diabetes (IDDM), Gastritis, HTN, Hypercholesterolemia, End Stage Renal Disease, Chronic Kidney Disease Denies: Hyperthyroidism Surgical History: - [facility] Procedures (06/18/18) DILATION OF UPPER VEIN, PERCUTANEOUS APPROACH (01/18/18) DRAINAGE OF PERITONEAL CAVITY, PERCUTANEOUS APPROACH (01/18/18) DRAINAGE OF RIGHT PLEURAL CAVITY, PERC APPROACH, DIAGN (03/14/18) DRAINAGE OF RIGHT PLEURAL CAVITY, PERCUTANEOUS APPROACH (12/18/17) ESOPHAGOGASTRODUODENOSCOPY [EGD] W/CLOSED BIOPSY (06/18/15) EXCISION OF STOMACH, ENDO, DIAGN (09/02/16) INSERT INFUSION DEV IN R INT JUGULAR VEIN, PERC (01/18/18) INSERTION OF ENDOTRACHEAL AIRWAY INTO TRACHEA, VIA OPENING (01/18/18) OTHER SKIN & SUBQ I D (08/07/15) PERFORMANCE OF URINARY FILTRATION, MULTIPLE (09/02/16) PLAIN RADIOGRAPHY OF DIALYSIS SHUNT USING OTH CONTRAST (01/18/18) RESPIRATORY VENTILATION, 24-96 CONSECUTIVE HOURS (01/18/18) TRANSFUSE NONAUT RED BLOOD CELLS IN PERIPH VEIN, PERC (05/23/18) ULTRASONOGRAPHY OF LEFT UPPER EXTREMITY VEINS (09/02/16) ULTRASONOGRAPHY OF RIGHT JUGULAR VEINS, GUIDANCE (01/18/18) Family History: States: Unknown Family Hx - Social History Hx Tobacco Use: No Hx Alcohol Use: No Hx Substance Use: No - Immunization History Hx Tetanus Toxoid Vaccination: No Hx Influenza Vaccination: No Hx Pneumococcal Vaccination: No Review Of Systems Except As Marked, All Systems Reviewed And Found Negative. Constitutional: Negative for: Fever, Chills Cardiovascular: Positive for: Chest Pain. Negative for: Palpitations, Light Headedness Respiratory: Negative for: Cough, Shortness of Breath Gastrointestinal: Negative for: Nausea, Vomiting, Abdominal Pain Neurological: Negative for: Headache, Dizziness Physical Exam - Physical Exam Appears: Non-toxic, No Acute Distress Skin: Normal Color, Warm, Dry Head: Atraumatic, Normacephalic Eye(s): bilateral: Normal Inspection Oral Mucosa: Moist Neck: Normal ROM, Supple Chest: Symmetrical, No Tenderness Cardiovascular: Rhythm Regular, No Murmur Respiratory: Normal Breath Sounds, No Accessory Muscle Use, No Rales, No Rhonchi, No Wheezing Gastrointestinal/Abdominal: Soft, No Tenderness Back: No CVA Tenderness Extremity: Normal ROM, No Pedal Edema Neurological/Psych: Oriented x3, Normal Speech Chest Pain-Non exerional SUZANEN x 2 -Ve Medical mgt for now ECHO pending Past Patient History - Infectious Disease Hx of Infectious Diseases: None - Past Medical History & Family History Past Medical History?: Yes - Past Social History Smoking Status: Never Smoked - CARDIAC Hx Cardiac Disorders: Yes Hx Congestive Heart Failure: Yes Hx Hypercholesterolemia: Yes Hx Hypertension: Yes - PULMONARY Hx Respiratory Disorders: Yes Hx Asthma: Yes Hx Chronic Obstructive Pulmonary Disease (COPD): Yes - NEUROLOGICAL Hx Neurological Disorder: Yes HX Cerebrovascular Accident: Yes (01/2016, left sided weakness) - HEENT Hx HEENT Problems: Yes Other/Comment: Wears Eyeglasses - RENAL Date of Last Dialysis Treatment: 08/20/18 - ENDOCRINE/METABOLIC Hx Endocrine Disorders: Yes Hx Diabetes Mellitus Type 2: Yes Hx Hyperthyroidism: No - HEMATOLOGICAL/ONCOLOGICAL Hx Blood Disorders: Yes Hx Anemia: Yes - INTEGUMENTARY Hx Dermatological Problems: No - MUSCULOSKELETAL/RHEUMATOLOGICAL Hx Musculoskeletal Disorders: Yes Hx Back Pain: Yes Hx Falls: No - GASTROINTESTINAL Hx Gastrointestinal Disorders: Yes Hx Gastritis: Yes - GENITOURINARY/GYNECOLOGICAL Hx Genitourinary Disorders: No - PSYCHIATRIC Hx Psychophysiologic Disorder: Yes Hx Depression: Yes Hx Substance Use: No Other/Comment: Suicidal ideation and attempt 06/2018. Denies current suicidal ideation at this time. - SURGICAL HISTORY Hx Surgeries: Yes Hx Section: Yes Other/Comment: Insertion Of HD Cath on the R Internal Jugular; left forearm graft for dialysis. left upper arm av shunt - ANESTHESIA Hx Anesthesia: Yes Hx Anesthesia Reactions: No Hx Malignant Hyperthermia: No Has any member of the family had a problem w/ anesthesia?: No Meds Allergies/Adverse Reactions: Allergies Allergy/AdvReac Type Severity Reaction Status Date / Time piperacillin [From Zosyn] Allergy Mild ITCHING Verified 08/22/18 14:41 tazobactam [From Zosyn] Allergy Mild ITCHING Verified 08/22/18 14:41 - Medications Medications: Current Medications Acetaminophen (Tylenol 325mg Tab) 325 mg PO Q4 PRN PRN Reason: Pain, Mild (1-3) Albuterol/Ipratropium (Duoneb 3 Mg/0.5 Mg (3 Ml) Ud) 3 ml IH RQ4 [facility] Last Admin: 08/23/18 20:21 Dose: Not Given Amlodipine Besylate (Norvasc) 5 mg PO DAILY [facility] Last Admin: 08/23/18 10:15 Dose: Not Given Aspirin (Ecotrin) 81 mg PO DAILY [facility] Last Admin: 08/23/18 10:14 Dose: Not Given Carvedilol (Coreg) 6.25 mg PO BID [facility] Last Admin: 08/23/18 18:20 Dose: 6.25 mg Cinacalcet (Sensipar) 30 mg PO DAILY [facility] Last Admin: 08/23/18 10:16 Dose: Not Given Clopidogrel Bisulfate (Plavix) 75 mg PO DAILY [facility] Last Admin: 08/23/18 10:16 Dose: Not Given Dextrose (Dextrose 50% Inj) 0 ml IV STAT PRN; Protocol PRN Reason: Hypoglycemia Protocol Dextrose (Glutose 15) 0 gm PO ONCE PRN; Protocol PRN Reason: Hypoglycemia Protocol Ergocalciferol (Drisdol 50,000 Intl Units Cap) 1 cap PO QWK [facility] Famotidine (Pepcid) 20 mg PO DAILY [facility] Last Admin: 08/23/18 10:15 Dose: Not Given Fluticasone/Vilanterol (Breo Ellipta 100-25 Mcg Inh) 1 puff INH RQD [facility] Last Admin: 08/23/18 09:15 Dose: 1 puff Gabapentin (Neurontin) 100 mg PO DAILY [facility] Last Admin: 08/23/18 10:15 Dose: Not Given Glucagon (Glucagen Diagnostic Kit) 0 mg IM STAT PRN; Protocol PRN Reason: Hypoglycemia Protocol Heparin Sodium (Porcine) (Heparin) 5,000 units SC Q12 [facility] Last Admin: 08/23/18 21:56 Dose: Not Given Dextrose (Dextrose 5% In Water 1000 Ml) 1,000 mls @ 0 mls/hr IV .Q0M PRN; Protocol PRN Reason: Hypoglycemia Protocol Insulin Aspart (Novolog) 0 unit SC ACHS [facility]; Protocol Last Admin: 08/23/18 21:55 Dose: Not Given Lactulose (Enulose) 10 gm PO DAILY PRN PRN Reason: Constipation Metoclopramide HCl (Reglan) 10 mg IVP Q8 [facility] Last Admin: 08/23/18 21:57 Dose: 10 mg Metoprolol Tartrate (Lopressor) 50 mg PO BID [facility] Last Admin: 08/23/18 18:20 Dose: 50 mg Mirtazapine (Remeron) 45 mg PO HS [facility] Last Admin: 08/23/18 21:56 Dose: 45 mg Multivitamins (Hexavitamin) 1 tab PO DAILY [facility] Last Admin: 08/23/18 10:15 Dose: Not Given Ondansetron HCl (Zofran Inj) 4 mg IVP Q6 PRN PRN Reason: Nausea/Vomiting Last Admin: 08/23/18 19:24 Dose: 4 mg Oxycodone/Acetaminophen (Percocet 5/325 Mg Tab) 1 tab PO Q6H PRN PRN Reason: Pain, moderate (4-7) Stop: 08/25/18 18:16 Last Admin: 08/23/18 18:20 Dose: 1 tab Rosuvastatin Calcium (Crestor) 10 mg PO [facility] Last Admin: 08/23/18 21:56 Dose: 10 mg Sertraline HCl (Zoloft) 100 mg PO DAILY [facility] Last Admin: 08/23/18 10:16 Dose: Not Given Sevelamer Carbonate (Renvela) 800 mg PO TID [facility] Last Admin: 08/23/18 18:20 Dose: 800 mg Results - Vital Signs Recent Vital Signs: Last Vital Signs Temp 97.3 F L 08/23/18 17:25 Pulse 95 H 08/23/18 16:15 Resp 18 08/23/18 17:25 BP 166/98 H 08/23/18 17:25 Pulse Ox 100 08/23/18 17:25 - Labs Result Diagrams: 08/22/18 07:14 08/22/18 07:14 Labs: Laboratory Results - last 24 hr 08/23/18 08/23/18 08/23/18 06:13 07:32 10:59 POC Glucose (mg/dL) 78 160 H Troponin I 0.0290 08/23/18 08/23/18 08/23/18 16:10 21:49 21:51 POC Glucose (mg/dL) 161 H 58 L 63 L Troponin I 08/23/18 22:18 POC Glucose (mg/dL) 125 H Troponin I
[2018-08-24] MEDS: Oxycodone/Acetaminophen 5/325 mg Tab PO PRN ×2 (02:43→18:13)
[2018-08-24] MEDS: Albuterol-Ipratrop 3 mg / 0.5 (3 ml) UD IH SCH ×6 (03:15→23:54)
[2018-08-24] MEDS: (Novolog) Insulin Aspart, Recombinant 100 u/ml 10 ml vial SC SCH ×4 (07:58→21:40)
[2018-08-24] MEDS: Fluticasone-Vilanterol 100/25mcg Diskus INH SCH (08:35)
[2018-08-24 08:43] LABS: BASO # 0.1 K/uL (0.0-0.2); EOS # 0.5 K/uL (0.0-0.7); EOS % 6.2 % (0.0-4.0); HEMOGLOBIN 9.8 g/dL (11.0-16.0); LYMPH # 1.4 K/uL (1.0-4.3); LYMPH % 17.9 % (20.0-40.0); MEAN CELL VOLUME 83.8 fL (81.0-99.0); MEAN CORPUSCULAR HEMOGLOBIN 26.6 pg (27.0-31.0); MEAN CORPUSCULAR HGB CONC 31.8 g/dL (33.0-37.0); MEAN PLATELET VOLUME 9.5 fL (7.2-11.7); MONO # 1.4 K/uL (0.0-0.8); MONO % 17.1 % (0.0-10.0); NEUT # 4.6 K/uL (1.8-7.0); NEUT % 57.8 % (50.0-75.0); RBC 3.67 Mil/uL (3.80-5.20); RED CELL DISTRIBUTION WIDTH 19.8 % (11.5-14.5)
[2018-08-24] MEDS: Multiple Vitamins Tab PO SCH (09:11)
[2018-08-24 09:30] LABS: ALB/GLOB RATIO 0.6 (1.0-2.1); ALBUMIN 3.5 g/dL (3.5-5.0); CALCIUM 9.3 mg/dl (8.6-10.4)
--- NOTE | 2018-08-24 20:52 | CP.PCM.PN ---
Subjective - Date & Time of Evaluation Date of Evaluation: 08/24/18 Time of Evaluation: 08:20 - Subjective Subjective: No new events noted Awaiting ECHO Objective - Vital Signs/Intake and Output Vital Signs (last 24 hours): Temp Pulse Resp BP Pulse Ox 97.6 F 73 18 141/77 95 08/24/18 15:09 08/24/18 15:09 08/24/18 15:09 08/24/18 15:09 08/24/18 15:09 - Medications Medications: Current Medications Acetaminophen (Tylenol 325mg Tab) 325 mg PO Q4 PRN PRN Reason: Pain, Mild (1-3) Albuterol/Ipratropium (Duoneb 3 Mg/0.5 Mg (3 Ml) Ud) 3 ml IH RQ4 [facility] Last Admin: 08/24/18 20:43 Dose: Not Given Amlodipine Besylate (Norvasc) 5 mg PO DAILY [facility] Last Admin: 08/24/18 09:10 Dose: 5 mg Aspirin (Ecotrin) 81 mg PO DAILY [facility] Last Admin: 08/24/18 09:10 Dose: 81 mg Carvedilol (Coreg) 6.25 mg PO BID [facility] Last Admin: 08/24/18 18:05 Dose: 6.25 mg Cinacalcet (Sensipar) 30 mg PO DAILY [facility] Last Admin: 08/24/18 09:09 Dose: 30 mg Clopidogrel Bisulfate (Plavix) 75 mg PO DAILY [facility] Last Admin: 08/24/18 09:10 Dose: 75 mg Dextrose (Dextrose 50% Inj) 0 ml IV STAT PRN; Protocol PRN Reason: Hypoglycemia Protocol Dextrose (Glutose 15) 0 gm PO ONCE PRN; Protocol PRN Reason: Hypoglycemia Protocol Ergocalciferol (Drisdol 50,000 Intl Units Cap) 1 cap PO QWK [facility] Famotidine (Pepcid) 20 mg PO DAILY [facility] Last Admin: 08/24/18 09:11 Dose: 20 mg Fluticasone/Vilanterol (Breo Ellipta 100-25 Mcg Inh) 1 puff INH RQD [facility] Last Admin: 08/24/18 08:35 Dose: 1 puff Gabapentin (Neurontin) 100 mg PO DAILY [facility] Last Admin: 08/24/18 09:11 Dose: 100 mg Glucagon (Glucagen Diagnostic Kit) 0 mg IM STAT PRN; Protocol PRN Reason: Hypoglycemia Protocol Heparin Sodium (Porcine) (Heparin) 5,000 units SC Q12 [facility] Last Admin: 08/24/18 09:11 Dose: Not Given Dextrose (Dextrose 5% In Water 1000 Ml) 1,000 mls @ 0 mls/hr IV .Q0M PRN; P rotocol PRN Reason: Hypoglycemia Protocol Insulin Aspart (Novolog) 0 unit SC ACHS [facility]; Protocol Last Admin: 08/24/18 16:55 Dose: Not Given Lactulose (Enulose) 10 gm PO DAILY PRN PRN Reason: Constipation Metoclopramide HCl (Reglan) 10 mg IVP Q8 [facility] Last Admin: 08/24/18 13:06 Dose: 10 mg Metoprolol Tartrate (Lopressor) 50 mg PO BID [facility] Last Admin: 08/24/18 18:06 Dose: 50 mg Mirtazapine (Remeron) 45 mg PO HS [facility] Last Admin: 08/23/18 21:56 Dose: 45 mg Multivitamins (Hexavitamin) 1 tab PO DAILY [facility] Last Admin: 08/24/18 09:11 Dose: 1 tab Ondansetron HCl (Zofran Inj) 4 mg IVP Q6 PRN PRN Reason: Nausea/Vomiting Last Admin: 08/24/18 18:08 Dose: 4 mg Oxycodone/Acetaminophen (Percocet 5/325 Mg Tab) 1 tab PO Q6H PRN PRN Reason: Pain, moderate (4-7) Stop: 08/25/18 18:16 Last Admin: 08/24/18 18:13 Dose: 1 tab Rosuvastatin Calcium (Crestor) 10 mg PO HS [facility] Last Admin: 08/23/18 21:56 Dose: 10 mg Sertraline HCl (Zoloft) 100 mg PO DAILY [facility] Last Admin: 08/24/18 09:11 Dose: 100 mg Sevelamer Carbonate (Renvela) 800 mg PO TID [facility] Last Admin: 08/24/18 18:05 Dose: 800 mg - Labs Labs: 08/24/18 08:38 08/24/18 08:38
[2018-08-25] MEDS: Albuterol-Ipratrop 3 mg / 0.5 (3 ml) UD IH SCH ×3 (03:28→20:27)
[2018-08-25] MEDS: (Novolog) Insulin Aspart, Recombinant 100 u/ml 10 ml vial SC SCH ×4 (07:33→21:15)
[2018-08-25] MEDS ORDERED: Perflutren Lipid Microsphere 1.5 ML SUS IV ONE (10:30)
--- NOTE | 2018-08-25 10:49 | CP.PCM.PN ---
Subjective - Date & Time of Evaluation Date of Evaluation: 08/25/18 Time of Evaluation: 10:48 - Subjective Subjective: pt in echo, not seen chart review only Objective - Vital Signs/Intake and Output Vital Signs (last 24 hours): Temp Pulse Resp BP Pulse Ox 97.7 F 78 20 147/77 95 08/25/18 08:05 08/25/18 08:10 08/25/18 08:05 08/25/18 08:05 08/25/18 08:05 Intake and Output: 08/25/18 08/25/18 06:59 18:59 Intake Total 150 Balance 150 - Medications Medications: Current Medications Acetaminophen (Tylenol 325mg Tab) 325 mg PO Q4 PRN PRN Reason: Pain, Mild (1-3) Albuterol/Ipratropium (Duoneb 3 Mg/0.5 Mg (3 Ml) Ud) 3 ml IH RQ4 [facility] Last Admin: 08/25/18 03:28 Dose: Not Given Amlodipine Besylate (Norvasc) 5 mg PO DAILY [facility] Last Admin: 08/24/18 09:10 Dose: 5 mg Aspirin (Ecotrin) 81 mg PO DAILY [facility] Last Admin: 08/24/18 09:10 Dose: 81 mg Carvedilol (Coreg) 6.25 mg PO BID [facility] Last Admin: 08/24/18 18:05 Dose: 6.25 mg Cinacalcet (Sensipar) 30 mg PO DAILY [facility] Last Admin: 08/24/18 09:09 Dose: 30 mg Clopidogrel Bisulfate (Plavix) 75 mg PO DAILY [facility] Last Admin: 08/24/18 09:10 Dose: 75 mg Dextrose (Dextrose 50% Inj) 0 ml IV STAT PRN; Protocol PRN Reason: Hypoglycemia Protocol Dextrose (Glutose 15) 0 gm PO ONCE PRN; Protocol PRN Reason: Hypoglycemia Protocol Ergocalciferol (Drisdol 50,000 Intl Units Cap) 1 cap PO QWK [facility] Famotidine (Pepcid) 20 mg PO DAILY [facility] Last Admin: 08/24/18 09:11 Dose: 20 mg Fluticasone/Vilanterol (Breo Ellipta 100-25 Mcg Inh) 1 puff INH RQD [facility] Last Admin: 08/24/18 08:35 Dose: 1 puff Gabapentin (Neurontin) 100 mg PO DAILY [facility] Last Admin: 08/24/18 09:11 Dose: 100 mg Glucagon (Glucagen Diagnostic Kit) 0 mg IM STAT PRN; Protocol PRN Reason: Hypoglycemia Protocol Heparin Sodium (Porcine) (Heparin) 5,000 units SC Q12 [facility] Last Admin: 08/24/18 21:37 Dose: Not Given Dextrose (Dextrose 5% In Water 1000 Ml) 1,000 mls @ 0 mls/hr IV .Q0M PRN; Protocol PRN Reason: Hypoglycemia Protocol Insulin Aspart (Novolog) 0 unit SC ACHS [facility]; Protocol Last Admin: 08/25/18 07:33 Dose: Not Given Lactulose (Enulose) 10 gm PO DAILY PRN PRN Reason: Constipation Metoclopramide HCl (Reglan) 10 mg IVP Q8 [facility] Last Admin: 08/25/18 05:48 Dose: Not Given Metoprolol Tartrate (Lopressor) 50 mg PO BID [facility] Last Admin: 08/24/18 18:06 Dose: 50 mg Mirtazapine (Remeron) 45 mg PO [facility] Last Admin: 08/24/18 21:37 Dose: 45 mg Multivitamins (Hexavitamin) 1 tab PO DAILY [facility] Last Admin: 08/24/18 09:11 Dose: 1 tab Ondansetron HCl (Zofran Inj) 4 mg IVP Q6 PRN PRN Reason: Nausea/Vomiting Last Admin: 08/24/18 18:08 Dose: 4 mg Oxycodone/Acetaminophen (Percocet 5/325 Mg Tab) 1 tab PO Q6H PRN PRN Reason: Pain, moderate (4-7) Stop: 08/25/18 18:16 Last Admin: 08/24/18 18:13 Dose: 1 tab Rosuvastatin Calcium (Crestor) 10 mg PO HS [facility] Last Admin: 08/24/18 21:37 Dose: 10 mg Sertraline HCl (Zoloft) 100 mg PO DAILY [facility] Last Admin: 08/24/18 09:11 Dose: 100 mg Sevelamer Carbonate (Renvela) 800 mg PO TID [facility] Last Admin: 08/24/18 18:05 Dose: 800 mg - Labs Labs: 08/24/18 08:38 08/24/18 08:38 Assessment and Plan (1) COPD (chronic obstructive pulmonary disease) Status: Acute (2) Chest pain Status: Acute (3) Anemia Status: Acute (4) CHF (congestive heart failure) Status: Acute (5) Diabetes mellitus Status: Acute (6) ESRD (end stage renal disease) Status: Acute - Assessment and Plan (Free Text) Assessment: hd today and mwf f/u cardiology bp acceptable
--- NOTE | 2018-08-25 10:57 | CARD ---
APPROVED REPORT Date of service: 08/22/2018 EKG Measurement Heart [id number] <Conclusion> Normal sinus rhythm Possible Left atrial enlargement Nonspecific T wave abnormality Prolonged QT Abnormal ECG
[2018-08-25] MEDS: Multiple Vitamins Tab PO SCH (11:47)
--- NOTE | 2018-08-25 17:40 | CARD ---
APPROVED REPORT Date of service: 08/25/2018 EXAM: Limited Two-dimensional echocardiogram with contrast. Other Information Quality : GoodRhythm : INDICATION Chest Pain Thrombus R/o Right atrial thrombus Echo Enhancing Agent Indication: Rule out thrombus Agent/Amount Used: Definity LEFT VENTRICLE The left ventricle is normal size. There is moderate concentric left ventricular hypertrophy. The left ventricular function is normal. The left ventricular ejection fraction is within the normal range. There is normal LV segmental wall motion. No left ventricle thrombus noted on this study. RIGHT VENTRICLE The right ventricle is normal size. There is normal right ventricular wall thickness. The right ventricular systolic function is normal. ATRIA The left atrium size is normal. The right atrium size is normal. The atrial septum is aneurysmal. AORTIC VALVE The aortic valve is normal in structure. MITRAL VALVE The mitral valve is normal in structure. PERICARDIAL EFFUSION There is a trace circumferential pericardial effusion. <Conclusion> The left ventricle is normal size. There is moderate concentric left ventricular hypertrophy. The left ventricular function is normal. The left ventricular ejection fraction is within the normal range. There is normal LV segmental wall motion. No left ventricle or atrial thrombus noted on this study. The atrial septum is aneurysmal.
--- NOTE | 2018-08-25 18:26 | CP.PCM.PN ---
Subjective - Date & Time of Evaluation Date of Evaluation: 08/25/18 Time of Evaluation: 18:26 Objective - Vital Signs/Intake and Output Vital Signs (last 24 hours): Temp Pulse Resp BP Pulse Ox 97.3 F L 82 18 153/87 H 97 08/25/18 17:45 08/25/18 17:45 08/25/18 17:45 08/25/18 17:45 08/25/18 17:45 Intake and Output: 08/25/18 08/25/18 06:59 18:59 Intake Total 150 Balance 150 - Medications Medications: Current Medications Acetaminophen (Tylenol 325mg Tab) 325 mg PO Q4 PRN PRN Reason: Pain, Mild (1-3) Albuterol/Ipratropium (Duoneb 3 Mg/0.5 Mg (3 Ml) Ud) 3 ml IH RQ4 [facility] Last Admin: 08/25/18 16:44 Dose: Not Given Amlodipine Besylate (Norvasc) 5 mg PO DAILY [facility] Last Admin: 08/25/18 11:46 Dose: Not Given Aspirin (Ecotrin) 81 mg PO DAILY [facility] Last Admin: 08/25/18 11:47 Dose: 81 mg Carvedilol (Coreg) 6.25 mg PO BID [facility] Last Admin: 08/25/18 11:45 Dose: Not Given Cinacalcet (Sensipar) 30 mg PO DAILY [facility] Last Admin: 08/25/18 11:47 Dose: 30 mg Clopidogrel Bisulfate (Plavix) 75 mg PO DAILY [facility] Last Admin: 08/25/18 11:47 Dose: 75 mg Dextrose (Dextrose 50% Inj) 0 ml IV STAT PRN; Protocol PRN Reason: Hypoglycemia Protocol Dextrose (Glutose 15) 0 gm PO ONCE PRN; Protocol PRN Reason: Hypoglycemia Protocol Ergocalciferol (Drisdol 50,000 Intl Units Cap) 1 cap PO QWK [facility] Famotidine (Pepcid) 20 mg PO DAILY [facility] Last Admin: 08/25/18 11:47 Dose: 20 mg Fluticasone/Vilanterol (Breo Ellipta 100-25 Mcg Inh) 1 puff INH RQD [facility] Last Admin: 08/24/18 08:35 Dose: 1 puff Gabapentin (Neurontin) 100 mg PO DAILY [facility] Last Admin: 08/25/18 11:47 Dose: 100 mg Glucagon (Glucagen Diagnostic Kit) 0 mg IM STAT PRN; Protocol PRN Reason: Hypoglycemia Protocol Heparin Sodium (Porcine) (Heparin) 5,000 units SC Q12 [facility] Last Admin: 08/24/18 21:37 Dose: Not Given Dextrose (Dextrose 5% In Water 1000 Ml) 1,000 mls @ 0 mls/hr IV .Q0M PRN; Protocol PRN Reason: Hypoglycemia Protocol Insulin Aspart (Novolog) 0 unit SC ACHS [facility]; Protocol Last Admin: 08/25/18 13:18 Dose: Not Given Lactulose (Enulose) 10 gm PO DAILY PRN PRN Reason: Constipation Metoclopramide HCl (Reglan) 10 mg IVP Q8 [facility] Last Admin: 08/25/18 13:17 Dose: 10 mg Metoprolol Tartrate (Lopressor) 50 mg PO BID [facility] Last Admin: 08/25/18 11:45 Dose: Not Given Mirtazapine (Remeron) 45 mg PO HS [facility] Last Admin: 08/24/18 21:37 Dose: 45 mg Multivitamins (Hexavitamin) 1 tab PO DAILY [facility] Last Admin: 08/25/18 11:47 Dose: 1 tab Ondansetron HCl (Zofran Inj) 4 mg IVP Q6 PRN PRN Reason: Nausea/Vomiting Last Admin: 08/24/18 18:08 Dose: 4 mg Rosuvastatin Calcium (Crestor) 10 mg PO HS [facility] Last Admin: 08/24/18 21:37 Dose: 10 mg Sertraline HCl (Zoloft) 100 mg PO DAILY [facility] Last Admin: 08/25/18 11:47 Dose: 100 mg Sevelamer Carbonate (Renvela) 800 mg PO TID [facility] Last Admin: 08/25/18 13:17 Dose: 800 mg - Labs Labs: 08/24/18 08:38 08/24/18 08:38 Assessment and Plan (1) COPD (chronic obstructive pulmonary disease) Status: Acute (2) Pleural effusion Status: Acute (3) Chest pain Status: Acute (4) CHF (congestive heart failure) Status: Acute (5) Diabetes mellitus Status: Acute (6) ESRD (end stage renal disease) on dialysis Status: Acute (7) Hypertension Status: Chronic (8) Pneumonia Status: Acute
[2018-08-26] MEDS: Oxycodone/Acetaminophen 5/325 mg Tab PO PRN ×2 (00:02→09:08)
--- NOTE | 2018-08-26 06:36 | CP.PCM.PN ---
Subjective - Date & Time of Evaluation Date of Evaluation: 08/25/18 Time of Evaluation: 18:15 - Subjective Subjective: Patient without cardiac events ECHO: Normal EF Will consider Stress test as IP or OP Objective - Vital Signs/Intake and Output Vital Signs (last 24 hours): Temp Pulse Resp BP Pulse Ox 98.1 F 79 20 153/81 H 97 08/26/18 00:08 08/26/18 03:10 08/26/18 00:08 08/26/18 00:08 08/26/18 00:08 Intake and Output: 08/25/18 08/26/18 18:59 06:59 Intake Total 100 Balance 100 - Medications Medications: Current Medications Acetaminophen (Tylenol 325mg Tab) 325 mg PO Q4 PRN PRN Reason: Pain, Mild (1-3) Last Admin: 08/25/18 20:24 Dose: 325 mg Albuterol/Ipratropium (Duoneb 3 Mg/0.5 Mg (3 Ml) Ud) 3 ml IH RQ4 [facility] Last Admin: 08/25/18 20:27 Dose: 3 ml Amlodipine Besylate (Norvasc) 5 mg PO DAILY [facility] Last Admin: 08/25/18 11:46 Dose: Not Given Aspirin (Ecotrin) 81 mg PO DAILY [facility] Last Admin: 08/25/18 11:47 Dose: 81 mg Carvedilol (Coreg) 6.25 mg PO BID [facility] Last Admin: 08/25/18 18:40 Dose: 6.25 mg Cinacalcet (Sensipar) 30 mg PO DAILY [facility] Last Admin: 08/25/18 11:47 Dose: 30 mg Clopidogrel Bisulfate (Plavix) 75 mg PO DAILY [facility] Last Admin: 08/25/18 11:47 Dose: 75 mg Dextrose (Dextrose 50% Inj) 0 ml IV STAT PRN; Protocol PRN Reason: Hypoglycemia Protocol Dextrose (Glutose 15) 0 gm PO ONCE PRN; Protocol PRN Reason: Hypoglycemia Protocol Ergocalciferol (Drisdol 50,000 Intl Units Cap) 1 cap PO QWK [facility] Famotidine (Pepcid) 20 mg PO DAILY [facility] Last Admin: 08/25/18 11:47 Dose: 20 mg Fluticasone/Vilanterol (Breo Ellipta 100-25 Mcg Inh) 1 puff INH RQD [facility] Last Admin: 08/24/18 08:35 Dose: 1 puff Gabapentin (Neurontin) 100 mg PO DAILY [facility] Last Admin: 08/25/18 11:47 Dose: 100 mg Glucagon (Glucagen Diagnostic Kit) 0 mg IM STAT PRN; Protocol PRN Reason: Hypoglycemia Protocol Heparin Sodium (Porcine) (Heparin) 5,000 units SC Q12 [facility] Last Admin: 08/25/18 21:16 Dose: Not Given Dextrose (Dextrose 5% In Water 1000 Ml) 1,000 mls @ 0 mls/hr IV .Q0M PRN; Protocol PRN Reason: Hypoglycemia Protocol Insulin Aspart (Novolog) 0 unit SC ACHS [facility]; Protocol Last Admin: 08/25/18 21:15 Dose: Not Given Lactulose (Enulose) 10 gm PO DAILY PRN PRN Reason: Constipation Metoclopramide HCl (Reglan) 10 mg IVP Q8 [facility] Last Admin: 08/26/18 05:21 Dose: Not Given Metoprolol Tartrate (Lopressor) 50 mg PO BID [facility] Last Admin: 08/25/18 18:39 Dose: 50 mg Mirtazapine (Remeron) 45 mg PO HS [facility] Last Admin: 08/25/18 21:17 Dose: 45 mg Multivitamins (Hexavitamin) 1 tab PO DAILY [facility] Last Admin: 08/25/18 11:47 Dose: 1 tab Ondansetron HCl (Zofran Inj) 4 mg IVP Q6 PRN PRN Reason: Nausea/Vomiting Last Admin: 08/24/18 18:08 Dose: 4 mg Oxycodone/Acetaminophen (Percocet 5/325 Mg Tab) 1 tab PO Q6H PRN PRN Reason: Pain, moderate (4-7) Stop: 08/28/18 23:39 Last Admin: 08/26/18 00:02 Dose: 1 tab Rosuvastatin Calcium (Crestor) 10 mg PO HS [facility] Last Admin: 08/25/18 21:16 Dose: 10 mg Sertraline HCl (Zoloft) 100 mg PO DAILY [facility] Last Admin: 08/25/18 11:47 Dose: 100 mg Sevelamer Carbonate (Renvela) 800 mg PO TID [facility] Last Admin: 08/25/18 18:39 Dose: 800 mg - Labs Labs: 08/24/18 08:38 08/24/18 08:38
[2018-08-26] MEDS: Albuterol-Ipratrop 3 mg / 0.5 (3 ml) UD IH SCH ×3 (08:50→16:37)
[2018-08-26] MEDS: Fluticasone-Vilanterol 100/25mcg Diskus INH SCH (08:50)
[2018-08-26] MEDS: Multiple Vitamins Tab PO SCH (09:02)
[2018-08-26] MEDS: (Novolog) Insulin Aspart, Recombinant 100 u/ml 10 ml vial SC SCH ×2 (09:03→12:34)
--- NOTE | 2018-08-26 10:05 | CP.PCM.PN ---
Subjective - Date & Time of Evaluation Date of Evaluation: 08/26/18 Time of Evaluation: 10:05 - Subjective Subjective: seen and examined falling asleep during interview feels "ready to go home", chest pain better Objective - Vital Signs/Intake and Output Vital Signs (last 24 hours): Temp Pulse Resp BP Pulse Ox 97.6 F 77 20 151/77 H 97 08/26/18 08:21 08/26/18 08:21 08/26/18 08:21 08/26/18 08:21 08/26/18 08:21 Intake and Output: 08/26/18 08/26/18 06:59 18:59 Intake Total 100 Balance 100 - Medications Medications: Current Medications Acetaminophen (Tylenol 325mg Tab) 325 mg PO Q4 PRN PRN Reason: Pain, Mild (1-3) Last Admin: 08/25/18 20:24 Dose: 325 mg Albuterol/Ipratropium (Duoneb 3 Mg/0.5 Mg (3 Ml) Ud) 3 ml IH RQ4 [facility] Last Admin: 08/26/18 08:50 Dose: Not Given Amlodipine Besylate (Norvasc) 5 mg PO DAILY [facility] Last Admin: 08/26/18 09:02 Dose: 5 mg Aspirin (Ecotrin) 81 mg PO DAILY [facility] Last Admin: 08/26/18 09:02 Dose: 81 mg Carvedilol (Coreg) 6.25 mg PO BID [facility] Last Admin: 08/26/18 09:02 Dose: 6.25 mg Cinacalcet (Sensipar) 30 mg PO DAILY [facility] Last Admin: 08/26/18 09:02 Dose: 30 mg Clopidogrel Bisulfate (Plavix) 75 mg PO DAILY [facility] Last Admin: 08/26/18 09:02 Dose: 75 mg Dextrose (Dextrose 50% Inj) 0 ml IV STAT PRN; Protocol PRN Reason: Hypoglycemia Protocol Dextrose (Glutose 15) 0 gm PO ONCE PRN; Protocol PRN Reason: Hypoglycemia Protocol Ergocalciferol (Drisdol 50,000 Intl Units Cap) 1 cap PO QWK [facility] Famotidine (Pepcid) 20 mg PO DAILY [facility] Last Admin: 08/26/18 09:02 Dose: 20 mg Fluticasone/Vilanterol (Breo Ellipta 100-25 Mcg Inh) 1 puff INH RQD [facility] Last Admin: 08/26/18 08:50 Dose: Not Given Gabapentin (Neurontin) 100 mg PO DAILY [facility] Last Admin: 08/26/18 09:02 Dose: 100 mg Glucagon (Glucagen Diagnostic Kit) 0 mg IM STAT PRN; Protocol PRN Reason: Hypoglycemia Protocol Heparin Sodium (Porcine) (Heparin) 5,000 units SC Q12 [facility] Last Admin: 08/26/18 09:03 Dose: Not Given Dextrose (Dextrose 5% In Water 1000 Ml) 1,000 mls @ 0 mls/hr IV .Q0M PRN; Protocol PRN Reason: Hypoglycemia Protocol Insulin Aspart (Novolog) 0 unit SC ACHS [facility]; Protocol Last Admin: 08/26/18 09:03 Dose: 3 units Lactulose (Enulose) 10 gm PO DAILY PRN PRN Reason: Constipation Metoclopramide HCl (Reglan) 10 mg IVP Q8 [facility] Last Admin: 08/26/18 05:21 Dose: Not Given Metoprolol Tartrate (Lopressor) 50 mg PO BID [facility] Last Admin: 08/26/18 09:02 Dose: 50 mg Mirtazapine (Remeron) 45 mg PO [facility] Last Admin: 08/25/18 21:17 Dose: 45 mg Multivitamins (Hexavitamin) 1 tab PO DAILY [facility] Last Admin: 08/26/18 09:02 Dose: 1 tab Ondansetron HCl (Zofran Inj) 4 mg IVP Q6 PRN PRN Reason: Nausea/Vomiting Last Admin: 08/24/18 18:08 Dose: 4 mg Oxycodone/Acetaminophen (Percocet 5/325 Mg Tab) 1 tab PO Q6H PRN PRN Reason: Pain, moderate (4-7) Stop: 08/28/18 23:39 Last Admin: 08/26/18 09:08 Dose: 1 tab Rosuvastatin Calcium (Crestor) 10 mg PO HS [facility] Last Admin: 08/25/18 21:16 Dose: 10 mg Sertraline HCl (Zoloft) 100 mg PO DAILY [facility] Last Admin: 08/26/18 09:02 Dose: 100 mg Sevelamer Carbonate (Renvela) 800 mg PO TID [facility] Last Admin: 08/26/18 09:02 Dose: 800 mg - Labs Labs: 08/24/18 08:38 08/24/18 08:38 - Constitutional Appears: Non-toxic, No Acute Distress - Head Exam Head Exam: NORMAL INSPECTION, NORMOCEPHALIC - Eye Exam Eye Exam: Normal appearance, PERRL - ENT Exam ENT Exam: Mucous Membranes Moist, Normal Exam - Neck Exam Neck Exam: Full ROM, Normal Inspection - Respiratory Exam Respiratory Exam: Decreased Breath Sounds, NORMAL BREATHING PATTERN - Cardiovascular Exam Cardiovascular Exam: REGULAR RHYTHM, RRR - GI/Abdominal Exam GI & Abdominal Exam: Distended, Soft - Extremities Exam Extremities Exam: Full ROM, Normal Inspection - Neurological Exam Neurological Exam: Alert, Oriented x3 - Psychiatric Exam Psychiatric exam: Normal Affect, Normal Mood - Skin Skin Exam: Dry, Intact Assessment and Plan (1) COPD (chronic obstructive pulmonary disease) Status: Acute (2) Chest pain Status: Acute (3) Anemia Status: Acute (4) CHF (congestive heart failure) Status: Acute (5) Diabetes mellitus Status: Acute (6) ESRD (end stage renal disease) Status: Acute - Assessment and Plan (Free Text) Assessment: maintain hd mwf bp acceptable labs tomorrow
[2018-08-26 11:50] LABS: BASO # 0.1 K/uL (0.0-0.2); BASO % 1.2 % (0.0-2.0); EOS # 0.4 K/uL (0.0-0.7); EOS % 5.6 % (0.0-4.0); HEMOGLOBIN 9.3 g/dL (11.0-16.0); LYMPH # 1.1 K/uL (1.0-4.3); LYMPH % 15.7 % (20.0-40.0); MEAN CORPUSCULAR HEMOGLOBIN 26.5 pg (27.0-31.0); MEAN CORPUSCULAR HGB CONC 31.6 g/dL (33.0-37.0); MEAN PLATELET VOLUME 9.2 fL (7.2-11.7); MONO # 1.1 K/uL (0.0-0.8); MONO % 15.5 % (0.0-10.0); NEUT # 4.5 K/uL (1.8-7.0); NRBC % 0.1 % (0.0-2.0); RBC 3.52 Mil/uL (3.80-5.20); RED CELL DISTRIBUTION WIDTH 20.3 % (11.5-14.5); WHITE BLOOD COUNT 7.3 K/uL (4.8-10.8)
[2018-08-26 12:02] LABS: ALB/GLOB RATIO 0.6 (1.0-2.1); ALBUMIN 3.4 g/dL (3.5-5.0); CALCIUM 8.6 mg/dl (8.6-10.4)
--- NOTE | 2018-08-26 13:20 | RAD ---
Date of service: 08/26/2018 PROCEDURE: CHEST RADIOGRAPH, 1 VIEW HISTORY: PLEURAL EFFUSION COMPARISON: 08/22/2018 FINDINGS: LUNGS: No definite infiltrate. Increased opacity at right base may reflect dependent pleural fluid behind the lung. Cannot rule out infiltrate/atelectasis. No abnormal left-sided opacity. PLEURA: Small right pleural effusion decreased from prior examination. Ovoid opacity mid right lung oriented transversely may reflect fluid within the minor fissure. Follow-up advised to rule out mass.. CARDIOVASCULAR: Normal. OSSEOUS STRUCTURES: No significant abnormalities. VISUALIZED UPPER ABDOMEN: Normal. OTHER FINDINGS: None. IMPRESSION: Decreased right pleural effusion. Ovoid opacity mid right lung possibly fluid within minor fissure. Follow-up to clearing. Opacity at right base, nonspecific. See above.
[2018-08-26] MEDS ORDERED: Influenza Vaccine 60 MCG/0.5 ML SYR (3 yr & up) IM ONE (14:48)
[2018-08-26 15:36] VITALS: BP 113/70; PULSE 70; RESP 18; TEMP 97.5; O2SAT 100
--- NOTE | 2018-08-26 16:59 | CP.PCM.PN ---
Subjective - Date & Time of Evaluation Date of Evaluation: 08/26/18 Time of Evaluation: 16:59 Objective - Vital Signs/Intake and Output Vital Signs (last 24 hours): Temp Pulse Resp BP Pulse Ox 97.5 F L 70 18 113/70 100 08/26/18 15:00 08/26/18 15:00 08/26/18 15:00 08/26/18 15:00 08/26/18 15:00 Intake and Output: 08/26/18 08/26/18 06:59 18:59 Intake Total 100 Balance 100 - Medications Medications: Current Medications Acetaminophen (Tylenol 325mg Tab) 325 mg PO Q4 PRN PRN Reason: Pain, Mild (1-3) Last Admin: 08/25/18 20:24 Dose: 325 mg Albuterol/Ipratropium (Duoneb 3 Mg/0.5 Mg (3 Ml) Ud) 3 ml IH RQ4 [facility] Last Admin: 08/26/18 16:37 Dose: 3 ml Amlodipine Besylate (Norvasc) 5 mg PO DAILY [facility] Last Admin: 08/26/18 09:02 Dose: 5 mg Aspirin (Ecotrin) 81 mg PO DAILY [facility] Last Admin: 08/26/18 09:02 Dose: 81 mg Carvedilol (Coreg) 6.25 mg PO BID [facility] Last Admin: 08/26/18 09:02 Dose: 6.25 mg Cinacalcet (Sensipar) 30 mg PO DAILY [facility] Last Admin: 08/26/18 09:02 Dose: 30 mg Clopidogrel Bisulfate (Plavix) 75 mg PO DAILY [facility] Last Admin: 08/26/18 09:02 Dose: 75 mg Dextrose (Dextrose 50% Inj) 0 ml IV STAT PRN; Protocol PRN Reason: Hypoglycemia Protocol Dextrose (Glutose 15) 0 gm PO ONCE PRN; Protocol PRN Reason: Hypoglycemia Protocol Ergocalciferol (Drisdol 50,000 Intl Units Cap) 1 cap PO QWK [facility] Famotidine (Pepcid) 20 mg PO DAILY [facility] Last Admin: 08/26/18 09:02 Dose: 20 mg Fluticasone/Vilanterol (Breo Ellipta 100-25 Mcg Inh) 1 puff INH RQD [facility] Last Admin: 08/26/18 08:50 Dose: Not Given Gabapentin (Neurontin) 100 mg PO DAILY [facility] Last Admin: 08/26/18 09:02 Dose: 100 mg Glucagon (Glucagen Diagnostic Kit) 0 mg IM STAT PRN; Protocol PRN Reason: Hypoglycemia Protocol Heparin Sodium (Porcine) (Heparin) 5,000 units SC Q12 [facility] Last Admin: 08/26/18 09:03 Dose: Not Given Dextrose (Dextrose 5% In Water 1000 Ml) 1,000 mls @ 0 mls/hr IV .Q0M PRN; Protocol PRN Reason: Hypoglycemia Protocol Insulin Aspart (Novolog) 0 unit SC ACHS [facility]; Protocol Last Admin: 08/26/18 12:34 Dose: 2 units Lactulose (Enulose) 10 gm PO DAILY PRN PRN Reason: Constipation Metoclopramide HCl (Reglan) 5 mg IVP Q6H [facility] Last Admin: 08/26/18 16:09 Dose: Not Given Metoprolol Tartrate (Lopressor) 50 mg PO BID [facility] Last Admin: 08/26/18 09:02 Dose: 50 mg Mirtazapine (Remeron) 45 mg PO [facility] Last Admin: 08/25/18 21:17 Dose: 45 mg Multivitamins (Hexavitamin) 1 tab PO DAILY [facility] Last Admin: 08/26/18 09:02 Dose: 1 tab Ondansetron HCl (Zofran Inj) 4 mg IVP Q6 PRN PRN Reason: Nausea/Vomiting Last Admin: 08/24/18 18:08 Dose: 4 mg Oxycodone/Acetaminophen (Percocet 5/325 Mg Tab) 1 tab PO Q6H PRN PRN Reason: Pain, moderate (4-7) Stop: 08/28/18 23:39 Last Admin: 08/26/18 09:08 Dose: 1 tab Rosuvastatin Calcium (Crestor) 10 mg PO [facility] Last Admin: 08/25/18 21:16 Dose: 10 mg Sertraline HCl (Zoloft) 100 mg PO DAILY [facility] Last Admin: 08/26/18 09:02 Dose: 100 mg Sevelamer Carbonate (Renvela) 800 mg PO TID [facility] Last Admin: 08/26/18 13:04 Dose: 800 mg - Labs Labs: 08/26/18 11:38 08/26/18 11:38 Assessment and Plan (1) COPD (chronic obstructive pulmonary disease) Status: Acute (2) Pleural effusion Status: Acute (3) Chest pain Status: Acute (4) CHF (congestive heart failure) Status: Acute (5) Diabetes mellitus Status: Acute (6) ESRD (end stage renal disease) on dialysis Status: Acute (7) Hypertension Status: Chronic (8) Pneumonia Status: Acute
[2018-08-29] MEDS ORDERED: Ergocalciferol 50,000 Intl Units Cap PO SCH (10:00)
== END 2018-08-26 18:28 | disposition home or self-care (01) | DRG 193 ==
LOC: SUPCPDRO 06:46 → C.ER 06:46 → C.9E 10:08 → C.5S 13:38
PROVIDERS: ADMIT Internal Medicine Critical Care Medicine; ATTEND Internal Medicine Critical Care Medicine
PROC: 5A1D70Z Performance of Urinary Filtration, Intermittent, Less than 6 Hours Per Day (ICD-10-PCS; principal; 2018-08-23)
PROC: 5A1D70Z Performance of Urinary Filtration, Intermittent, Less than 6 Hours Per Day (ICD-10-PCS; 2018-08-25)
DX: J18.9 Pneumonia, unspecified organism (principal); N18.6 End stage renal disease; I13.2 Hypertensive heart and chronic kidney disease with heart failure and with stage 5 chronic kidney disease, or end stage renal disease; J44.0 Chronic obstructive pulmonary disease with (acute) lower respiratory infection; I50.9 Heart failure, unspecified; E11.22 Type 2 diabetes mellitus with diabetic chronic kidney disease; D64.9 Anemia, unspecified; Z79.4 Long term (current) use of insulin; Z86.73 Personal history of transient ischemic attack (TIA), and cerebral infarction without residual deficits; Z99.2 Dependence on renal dialysis; E78.00 Pure hypercholesterolemia, unspecified

== ENCOUNTER 2018-10-01 09:05 | Emergency (ER) | payer MEDICARE, OTHER ==
[2018-10-01 09:05] VITALS: BMI 22.8
[2018-10-01 10:38] LABS: BASO # 0.1 K/uL (0.0-0.2); EOS # 0.4 K/uL (0.0-0.7); EOS % 5.1 % (0.0-4.0); LYMPH # 1.8 K/uL (1.0-4.3); LYMPH % 23.9 % (20.0-40.0); MEAN CORPUSCULAR HEMOGLOBIN 25.7 pg (27.0-31.0); MEAN CORPUSCULAR HGB CONC 31.6 g/dL (33.0-37.0); MEAN PLATELET VOLUME 9.1 fL (7.2-11.7); MONO % 13.9 % (0.0-10.0); NEUT # 4.2 K/uL (1.8-7.0); NEUT % 56.1 % (50.0-75.0); NRBC % 0.1 % (0.0-2.0); RBC 4.8 Mil/uL (3.80-5.20); RED CELL DISTRIBUTION WIDTH 19.9 % (11.5-14.5); WHITE BLOOD COUNT 7.5 K/uL (4.8-10.8)
[2018-10-01 10:40] LABS: HEMOGLOBIN 12.3 g/dL (11.0-16.0); MEAN CELL VOLUME 81.3 fL (81.0-99.0)
--- NOTE | 2018-10-01 10:58 | C.PDOC ---
History Of Present Illness 43 year old female with PMHx of ESRD currently in dialysis presents to the ED complaining of low back pain for one week. States she goes to dialysis on Mondays, Wednesdays and Fridays, but she only had 2 hours of dialysis this morning because she did not tolerate the low back pain. Reports she was prescribed Tramadol with minimal relief. Last BM was 2 days ago. Denies any bowel incontinence or retention, parasthesia, chest pain, abdominal pain, fever, chills, nausea, vomiting, weakness, tingling, or numbness. Reports she is not able to urinate. Denies trauma or injuries. Time Seen by Provider: 10/01/18 09:36 Chief Complaint (Nursing): Back Pain History Per: Patient History/Exam Limitations: no limitations Onset/Duration Of Symptoms: Days Current Symptoms Are (Timing): Still Present Previous Symptoms: None Associated Symptoms: None Past Medical History Reviewed: Historical Data, Nursing Documentation, Vital Signs Vital Signs: Last Vital Signs Temp 98.8 F 10/01/18 09:16 Pulse 109 H 10/01/18 09:16 Resp 16 10/01/18 09:16 BP 160/94 H 10/01/18 09:16 Pulse Ox 100 10/01/18 09:16 - Medical History PMH: Anemia, Asthma, CHF, COPD, Depression, Diabetes (IDDM), Gastritis, HTN, Hypercholesterolemia, End Stage Renal Disease, Chronic Kidney Disease Denies: Hyperthyroidism Surgical History: - [facility] Procedures (08/22/18) DILATION OF UPPER VEIN, PERCUTANEOUS APPROACH (01/18/18) DRAINAGE OF PERITONEAL CAVITY, PERCUTANEOUS APPROACH (01/18/18) DRAINAGE OF RIGHT PLEURAL CAVITY, PERC APPROACH, DIAGN (03/14/18) DRAINAGE OF RIGHT PLEURAL CAVITY, PERCUTANEOUS APPROACH (12/18/17) ESOPHAGOGASTRODUODENOSCOPY [EGD] W/CLOSED BIOPSY (06/18/15) EXCISION OF STOMACH, ENDO, DIAGN (09/02/16) INSERT INFUSION DEV IN R INT JUGULAR VEIN, PERC (01/18/18) INSERTION OF ENDOTRACHEAL AIRWAY INTO TRACHEA, VIA OPENING (01/18/18) OTHER SKIN & SUBQ I D (08/07/15) PERFORMANCE OF URINARY FILTRATION, MULTIPLE (09/02/16) PLAIN RADIOGRAPHY OF DIALYSIS SHUNT USING OTH CONTRAST (01/18/18) RESPIRATORY VENTILATION, 24-96 CONSECUTIVE HOURS (01/18/18) TRANSFUSE NONAUT RED BLOOD CELLS IN PERIPH VEIN, PERC (05/23/18) ULTRASONOGRAPHY OF LEFT UPPER EXTREMITY VEINS (09/02/16) ULTRASONOGRAPHY OF RIGHT JUGULAR VEINS, GUIDANCE (01/18/18) Family History: States: No Known Family Hx - Social History Hx Tobacco Use: No Hx Alcohol Use: No Hx Substance Use: No - Immunization History Hx Tetanus Toxoid Vaccination: No Hx Influenza Vaccination: No Hx Pneumococcal Vaccination: No Review Of Systems Except As Marked, All Systems Reviewed And Found Negative. Constitutional: Negative for: Fever, Chills Cardiovascular: Negative for: Chest Pain Respiratory: Negative for: Cough Gastrointestinal: Negative for: Nausea, Vomiting, Abdominal Pain, Diarrhea Genitourinary: Negative for: Dysuria, Hematuria Musculoskeletal: Positive for: Back Pain Neurological: Negative for: Weakness, Numbness Physical Exam - Physical Exam Appears: Non-toxic Skin: Warm, Dry, No Rash Head: Atraumatic, Normacephalic Eye(s): bilateral: Normal Inspection, PERRL, EOMI Nose: Normal Oral Mucosa: Moist Neck: Normal ROM, Supple Chest: Symmetrical Cardiovascular: Rhythm Regular, No Murmur Respiratory: No Rales, No Rhonchi, No Wheezing, Other (Normal inspiratory effor t, Lungs clear to auscultation) Gastrointestinal/Abdominal: Soft, No Tenderness, No Guarding, No Rebound Back: No CVA Tenderness, No Decreased ROM Extremity: Bilateral: Atraumatic, Normal Color And Temperature, Normal ROM Pulses: Left Dorsalis Pedis: Normal, Right Dorsalis Pedis: Normal Neurological/Psych: Oriented x3, Normal Speech, Normal Motor, Normal Sensation, Normal Reflexes Gait: Steady ED Course And Treatment - Laboratory Results Result Diagrams: 10/01/18 10:35 10/01/18 11:39 O2 Sat by Pulse Oximetry: 100 (RA) Pulse Ox Interpretation: Normal Medical Decision Making Medical Decision Making: Plan - Bloodwork -Toradol 30mg IM 1336 Spoke with [employer] Partner about rearranging dialysis appointment. Reported they spoke with patient's Associate Teacher. Disposition Counseled Patient/Family Regarding: Studies Performed, Diagnosis, Need For Followup - Disposition Referrals: Mar Ibrahim MD [Medical Doctor] - Disposition: HOME/ ROUTINE Disposition Time: 13:49 Condition: STABLE Additional Instructions: SHANIKA HILTON, thank you for letting us take care of you today. Your provide r was Pura Puentes MD and you were treated for BACK PAIN. The emergency medical care you received today was directed at your acute symptoms. If you were prescribed any medication, please fill it and take as directed. It may take several days for your symptoms to resolve. Return to the Emergency Department if your symptoms worsen, do not improve, or if you have any other problems. Please contact your doctor in one day as previously arranged. Bring any paperwork you were given at discharge with you along with any medications you are taking to your follow up visit. Our treatment cannot replace ongoing medical care by a primary care provider outside of the emergency department. Thank you for allowing the [email or web address] team to be part of your care today. Instructions: Low Back Pain (DC), End Stage Kidney Disease (DC) Forms: [employer] Connect (Greenlandic), General Discharge Instructions - POA Present On Arrival: None - Clinical Impression Clinical Impression: ESRD (end stage renal disease) on dialysis, Low back pain - Scribe Statement The provider has reviewed the documentation as recorded by the Scribaashish Medina All medical record entries made by the Fransiscaibe were at my direction and personally dictated by me. I have reviewed the chart and agree that the record accurately reflects my personal performance of the history, physical exam, medical decision making, and the department course for this patient. I have also personally directed, reviewed, and agree with the discharge instructions and disposition.
[2018-10-01 11:05] LABS: INR 1.3
[2018-10-01 11:40] VITALS: PULSE 78; RESP 18; TEMP 98
[2018-10-01 12:07] LABS: ALB/GLOB RATIO 0.6 (1.0-2.1); ALBUMIN 3.9 g/dL (3.5-5.0); CALCIUM 9.5 mg/dl (8.6-10.4)
[2018-10-01 13:25] VITALS: BP 143/76
[2018-10-01 13:43] VITALS: O2SAT 100
== END 2018-10-01 14:16 | disposition home or self-care (01) ==
LOC: C.ER 09:05
DX: I12.0 Hypertensive chronic kidney disease with stage 5 chronic kidney disease or end stage renal disease (principal); E11.22 Type 2 diabetes mellitus with diabetic chronic kidney disease; N18.6 End stage renal disease; Z99.2 Dependence on renal dialysis; Z79.4 Long term (current) use of insulin; M54.5 Low back pain
CPT/HCPCS: 80053; 83735; 84100; 85025; 85610; 85730; 96372; 99284; J1885

== ENCOUNTER 2019-01-15 10:07 | Observation (INO) | payer MEDICARE, OTHER ==
[2019-01-15 10:12] VITALS: BMI 23.7
[2019-01-15 11:26] LABS: BASO # 0.1 K/uL (0.0-0.2); BASO % 1.1 % (0.0-2.0); EOS # 0.5 K/uL (0.0-0.7); EOS % 5.5 % (0.0-4.0); HEMOGLOBIN 12.7 g/dL (11.0-16.0); LYMPH # 1.9 K/uL (1.0-4.3); LYMPH % 22.3 % (20.0-40.0); MEAN CORPUSCULAR HEMOGLOBIN 27.8 pg (27.0-31.0); MEAN CORPUSCULAR HGB CONC 32.2 g/dL (33.0-37.0); MEAN PLATELET VOLUME 9.4 fL (7.2-11.7); MONO # 1.1 K/uL (0.0-0.8); MONO % 12.7 % (0.0-10.0); NEUT % 58.4 % (50.0-75.0); NRBC % 0.1 % (0.0-2.0); RBC 4.58 Mil/uL (3.80-5.20); RED CELL DISTRIBUTION WIDTH 19.2 % (11.5-14.5); WHITE BLOOD COUNT 8.5 K/uL (4.8-10.8)
--- NOTE | 2019-01-15 11:26 | C.PDOC ---
History Of Present Illness 43 y/o female, with history of hypertension, ESRD, last dialysis yesterday, comes in to the ER complaining of leg pain and swelling to the left lateral buttock for the past week. Patient was seen by her PMD 1 week ago and was told to go to the hospital for IV antibiotics, but she couldnt make it until today. Patient has left hemiparesis from a CVA. She states the swelling got larger and denies fever or chills. Time Seen by Provider: 01/15/19 10:37 Chief Complaint (Nursing): Abnormal Skin Integrity History Per: Patient History/Exam Limitations: no limitations Onset/Duration Of Symptoms: Days Current Symptoms Are (Timing): Still Present Past Medical History Reviewed: Historical Data, Nursing Documentation, Vital Signs Vital Signs: Last Vital Signs Temp 98.7 F 01/15/19 10:14 Pulse 92 H 01/15/19 10:14 Resp 16 01/15/19 10:14 BP 135/82 01/15/19 10:14 Pulse Ox 100 01/15/19 10:14 - Medical History PMH: Anemia, Asthma, CHF, COPD, Depression, Diabetes (IDDM), Gastritis, HTN, Hypercholesterolemia, End Stage Renal Disease, Chronic Kidney Disease Denies: Hyperthyroidism Surgical History: - [facility] Procedures (08/22/18) DILATION OF UPPER VEIN, PERCUTANEOUS APPROACH (01/18/18) DRAINAGE OF PERITONEAL CAVITY, PERCUTANEOUS APPROACH (01/18/18) DRAINAGE OF RIGHT PLEURAL CAVITY, PERC APPROACH, DIAGN (03/14/18) DRAINAGE OF RIGHT PLEURAL CAVITY, PERCUTANEOUS APPROACH (12/18/17) ESOPHAGOGASTRODUODENOSCOPY [EGD] W/CLOSED BIOPSY (06/18/15) EXCISION OF STOMACH, ENDO, DIAGN (09/02/16) INSERT INFUSION DEV IN R INT JUGULAR VEIN, PERC (01/18/18) INSERTION OF ENDOTRACHEAL AIRWAY INTO TRACHEA, VIA OPENING (01/18/18) OTHER SKIN & SUBQ I D (08/07/15) PERFORMANCE OF URINARY FILTRATION, MULTIPLE (09/02/16) PLAIN RADIOGRAPHY OF DIALYSIS SHUNT USING OTH CONTRAST (01/18/18) RESPIRATORY VENTILATION, 24-96 CONSECUTIVE HOURS (01/18/18) TRANSFUSE NONAUT RED BLOOD CELLS IN PERIPH VEIN, PERC (05/23/18) ULTRASONOGRAPHY OF LEFT UPPER EXTREMITY VEINS (09/02/16) ULTRASONOGRAPHY OF RIGHT JUGULAR VEINS, GUIDANCE (01/18/18) Family History: States: No Known Family Hx - Social History Hx Tobacco Use: No Hx Alcohol Use: No Hx Substance Use: No - Immunization History Hx Tetanus Toxoid Vaccination: Yes Hx Influenza Vaccination: No Hx Pneumococcal Vaccination: Yes Review Of Systems Constitutional: Negative for: Fever, Chills Cardiovascular: Negative for: Chest Pain Respiratory: Negative for: Shortness of Breath Gastrointestinal: Negative for: Nausea, Vomiting Genitourinary: Negative for: Dysuria Musculoskeletal: Positive for: Leg Pain, Other (Swelling of left lateral buttock) Physical Exam - Physical Exam Appears: Non-toxic, No Acute Distress Skin: Warm, Dry, Other (has 3cm round mobile mass in the left lateral buttock, questionable fluctuance in the center, warm but not erythematous) Head: Atraumatic, Normacephalic Eye(s): bilateral: Normal Inspection Oral Mucosa: Moist Neck: Supple Cardiovascular: Rhythm Regular, No Murmur Respiratory: Normal Breath Sounds, No Rales, No Rhonchi, No Wheezing Extremity: Bilateral: Normal ROM Neurological/Psych: Oriented x3, Normal Speech ED Course And Treatment O2 Sat by Pulse Oximetry: 100 (RA) Pulse Ox Interpretation: Normal Medical Decision Making Medical Decision Making: Plan: --Labs Disposition - Disposition Forms: [employer] ([place]an) - PA / FOSTER WINDER / Resident Statement MD/DO has reviewed & agrees with the documentation as recorded. - Scribe Statement The provider has reviewed the documentation as recorded by the Scribe Chayo Humphries All medical record entries made by the Scribe were at my direction and personally dictated by me. I have reviewed the chart and agree that the record accurately reflects my personal performance of the history, physical exam, medical decision making, and the department course for this patient. I have also personally directed, reviewed, and agree with the discharge instructions and disposition.
[2019-01-15 11:34] LABS: MEAN CELL VOLUME 86.3 fL (81.0-99.0)
[2019-01-15 12:29] LABS: ALB/GLOB RATIO 0.8 (1.0-2.1); ALBUMIN 4.1 g/dL (3.5-5.0); CALCIUM 9.4 mg/dl (8.6-10.4)
--- NOTE | 2019-01-15 13:07 | US ---
Date of service: 01/15/2019 Indication: right buttock- eval for abscess vs lipoma Extremity nonvascular ultrasound Comparison: No prior ultrasound available for direct comparison Findings: In the region of interest (right buttock), there is a 2.2 x 1.6 x 2.3 cm complex partially cystic collection. Adjacent soft tissue edema evident. This collection does not demonstrate evidence of internal vascularity. Impression: Complex partially cystic collection noted in the region of interest (right buttock) measuring approximately 2.2 x 1.6 x 2.3 cm. Appearance indeterminate however suggests hematoma. Correlate clinically. Follow-up as indicated.
[2019-01-15] MEDS ORDERED: (Novolin R) Insulin Human Regular 100 units/ml vial SC ONE (14:04)
[2019-01-15] MEDS ORDERED: (Novolin R) Insulin Human Regular 100 units/ml vial ONE (14:29)
--- NOTE | 2019-01-15 15:03 | CP.PCM.CON ---
History of Present Illness - History of Present Illness History of Present Illness: SURGICAL NOTE FOR DR. CROWLEY A 43yo female with a PMHx of DM, HTN, Dialysis, stroke presents to the ED with a right lower gluteal lump. The lump is painful, which she rates a 8/10. She noticed the lump last week. The pain is constant and does not radiate anywhere. She describes the lump as non-erythematous. Denies any drainage. She denies headaches, dizziness, chest pain, cough, SOB, constipation, diarrhea, joint pain or muscle pain. PMHx: DM, HTN, Dialysis, Stroke, left sided paralysis PSHx: Dialysis shunt (left upper arm) Meds: Reviewed in chart Allergies: Penicillin and Tazobactam Social: Denies smoking, alcohol, drugs Past Patient History - Infectious Disease Hx of Infectious Diseases: None - Past Medical History & Family History Past Medical History?: Yes - Past Social History Smoking Status: Never Smoked - CARDIAC Hx Congestive Heart Failure: Yes Hx Hypercholesterolemia: Yes Hx Hypertension: Yes - PULMONARY Hx Asthma: Yes Hx Chronic Obstructive Pulmonary Disease (COPD): Yes - NEUROLOGICAL HX Cerebrovascular Accident: Yes (2 years ago with left sided weakness) - HEENT Hx HEENT Problems: Yes Other/Comment: Wears Eyeglasses - RENAL Hx Chronic Kidney Disease: Yes - ENDOCRINE/METABOLIC Hx Hyperthyroidism: No - HEMATOLOGICAL/ONCOLOGICAL Hx Anemia: Yes - INTEGUMENTARY Hx Dermatological Problems: No - MUSCULOSKELETAL/RHEUMATOLOGICAL Hx Musculoskeletal Disorders: Yes Hx Back Pain: Yes Hx Falls: No - GASTROINTESTINAL Hx Gastritis: Yes - GENITOURINARY/GYNECOLOGICAL Hx Genitourinary Disorders: No - PSYCHIATRIC Hx Depression: Yes Hx Substance Use: No - SURGICAL HISTORY Hx Surgeries: Yes Hx Section: Yes Other/Comment: Insertion Of HD Cath on the R Internal Jugular; left forearm graft for dialysis. left upper arm av shunt - ANESTHESIA Hx Anesthesia: Yes Hx Anesthesia Reactions: No Hx Malignant Hyperthermia: No Meds Allergies/Adverse Reactions: Allergies Allergy/AdvReac Type Severity Reaction Status Date / Time piperacillin [From Zosyn] Allergy Mild ITCHING Verified 01/15/19 10:11 tazobactam [From Zosyn] Allergy Mild ITCHING Verified 01/15/19 10:11 Physical Exam - Constitutional Appears: Non-toxic, No Acute Distress - Respiratory Exam Respiratory Exam: Clear to Auscultation Bilateral, NORMAL BREATHING PATTERN - Cardiovascular Exam Cardiovascular Exam: REGULAR RHYTHM, +S1, +S2 - GI/Abdominal Exam GI & Abdominal Exam: Soft. absent: Distended, Firm, Guarding, Rebound, Rigid, Tenderness - Extremities Exam Extremities exam: Negative for: pedal edema, tenderness Additional comments: Right buttock lump measuring 3x3cm, mildly tender, no drainage, no erythema, no skin changes Left sided paralysis - Neurological Exam Neurological exam: Alert, Oriented x3 Results - Vital Signs Recent Vital Signs: Last Vital Signs Temp 98.1 F 01/15/19 14:05 Pulse 95 H 01/15/19 14:05 Resp 18 01/15/19 14:05 BP 181/100 H 01/15/19 14:05 Pulse Ox 97 01/15/19 14:05 - Labs Result Diagrams: 01/15/19 11:17 01/15/19 11:48 Labs: Laboratory Results - last 24 hr 01/15/19 01/15/19 01/15/19 11:17 11:48 14:02 WBC 8.5 RBC 4.58 Hgb 12.7 Hct 39.5 MCV 86.3 D MCH 27.8 MCHC 32.2 L RDW 19.2 H Plt Count 189 MPV 9.4 Neut % (Auto) 58.4 Lymph % (Auto) 22.3 [place] % (Auto) 12.7 H Eos % (Auto) 5.5 H Baso % (Auto) 1.1 Neut # (Auto) 5.0 Lymph # (Auto) 1.9 [place] # (Auto) 1.1 H Eos # (Auto) 0.5 Baso # (Auto) 0.1 Sodium 134 Potassium 4.6 Chloride 90 L Carbon Dioxide 31 H Anion Gap 18 BUN 51 H Creatinine 5.3 H Est GFR ( Amer) 11 Est GFR (Non-Af Amer) 9 POC Glucose (mg/dL) 393 H Random Glucose 369 H D Calcium 9.4 Total Bilirubin 1.0 AST 71 H D ALT 59 H D Alkaline Phosphatase 497 H D Total Protein 9.3 H Albumin 4.1 Globulin 5.2 H Albumin/Globulin Ratio 0.8 L Assessment & Plan - Assessment and Plan (Free Text) Assessment: 43F Presents with right buttock cystic hematoma Plan: -warm compresses -will follow up any changes in mass for possible excision -discussed with Dr. Adam Ortiz, PGY3
--- NOTE | 2019-01-15 18:30 | CP.PCM.HP ---
Past Patient History - Infectious Disease Hx of Infectious Diseases: None - Past Medical History & Family History Past Medical History?: Yes - Past Social History Smoking Status: Never Smoked - CARDIAC Hx Congestive Heart Failure: Yes Hx Hypercholesterolemia: Yes Hx Hypertension: Yes - PULMONARY Hx Asthma: Yes Hx Chronic Obstructive Pulmonary Disease (COPD): Yes - NEUROLOGICAL HX Cerebrovascular Accident: Yes (2 years ago with left sided weakness) - HEENT Hx HEENT Problems: Yes Other/Comment: Wears Eyeglasses - RENAL Hx Chronic Kidney Disease: Yes - ENDOCRINE/METABOLIC Hx Hyperthyroidism: No - HEMATOLOGICAL/ONCOLOGICAL Hx Anemia: Yes - INTEGUMENTARY Hx Dermatological Problems: No - MUSCULOSKELETAL/RHEUMATOLOGICAL Hx Musculoskeletal Disorders: Yes Hx Back Pain: Yes Hx Falls: No - GASTROINTESTINAL Hx Gastritis: Yes - GENITOURINARY/GYNECOLOGICAL Hx Genitourinary Disorders: No - PSYCHIATRIC Hx Depression: Yes Hx Substance Use: No - SURGICAL HISTORY Hx Surgeries: Yes Hx Section: Yes Other/Comment: Insertion Of HD Cath on the R Internal Jugular; left forearm graft for dialysis. left upper arm av shunt - ANESTHESIA Hx Anesthesia: Yes Hx Anesthesia Reactions: No Hx Malignant Hyperthermia: No Meds Allergies/Adverse Reactions: Allergies Allergy/AdvReac Type Severity Reaction Status Date / Time piperacillin [From Zosyn] Allergy Mild ITCHING Verified 01/15/19 10:11 tazobactam [From Zosyn] Allergy Mild ITCHING Verified 01/15/19 10:11 Results - Vital Signs Recent Vital Signs: Last Vital Signs Temp 97.2 F L 01/15/19 16:35 Pulse 97 H 01/15/19 16:35 Resp 20 01/15/19 16:35 BP 181/94 H 01/15/19 16:35 Pulse Ox 98 01/15/19 16:35 - Labs Result Diagrams: 01/15/19 11:17 01/15/19 11:48 Labs: Laboratory Results - last 24 hr 01/15/19 01/15/19 01/15/19 11:17 11:48 14:02 WBC 8.5 RBC 4.58 Hgb 12.7 Hct 39.5 MCV 86.3 D MCH 27.8 MCHC 32.2 L RDW 19.2 H Plt Count 189 MPV 9.4 Neut % (Auto) 58.4 Lymph % (Auto) 22.3 [place] % (Auto) 12.7 H Eos % (Auto) 5.5 H Baso % (Auto) 1.1 Neut # (Auto) 5.0 Lymph # (Auto) 1.9 [place] # (Auto) 1.1 H Eos # (Auto) 0.5 Baso # (Auto) 0.1 Sodium 134 Potassium 4.6 Chloride 90 L Carbon Dioxide 31 H Anion Gap 18 BUN 51 H Creatinine 5.3 H Est GFR ( Amer) 11 Est GFR (Non-Af Amer) 9 POC Glucose (mg/dL) 393 H Random Glucose 369 H D Calcium 9.4 Total Bilirubin 1.0 AST 71 H D ALT 59 H D Alkaline Phosphatase 497 H D Total Protein 9.3 H Albumin 4.1 Globulin 5.2 H Albumin/Globulin Ratio 0.8 L 01/15/19 01/15/19 01/15/19 15:24 15:26 16:43 WBC RBC Hgb Hct MCV MCH MCHC RDW Plt Count MPV Neut % (Auto) Lymph % (Auto) [place] % (Auto) Eos % (Auto) Baso % (Auto) Neut # (Auto) Lymph # (Auto) [place] # (Auto) Eos # (Auto) Baso # (Auto) Sodium Potassium Chloride Carbon Dioxide Anion Gap BUN Creatinine Est GFR ( Amer) Est GFR (Non-Af Amer) POC Glucose (mg/dL) > 500 H* 437 H* 420 H* Random Glucose Calcium Total Bilirubin AST ALT Alkaline Phosphatase Total Protein Albumin Globulin Albumin/Globulin Ratio
[2019-01-15] MEDS ORDERED: Glucagon Recombinant 1 mg Inj IM PRN (18:38)
[2019-01-15] MEDS ORDERED: Dextrose 50% SYRINGE Inj (50 ml) IV PRN (18:38)
[2019-01-15] MEDS ORDERED: Albuterol-Ipratrop 3 mg / 0.5 (3 ml) UD IH SCH (20:00)
[2019-01-15] MEDS: Albuterol-Ipratrop 3 mg / 0.5 (3 ml) UD IH SCH ×2 (20:45→23:52)
[2019-01-15] MEDS: (Novolog) Insulin Aspart, Recombinant 100 u/ml 10 ml vial SC SCH (21:41)
[2019-01-16] MEDS: Albuterol-Ipratrop 3 mg / 0.5 (3 ml) UD IH SCH ×5 (03:22→21:11)
[2019-01-16] MEDS: Fluticasone-Vilanterol 100/25mcg Diskus INH SCH (07:55)
[2019-01-16] MEDS: (Novolog) Insulin Aspart, Recombinant 100 u/ml 10 ml vial SC SCH ×4 (08:00→21:31)
[2019-01-16] MEDS: Pantoprazole 40 mg EC Tab PO SCH (10:26)
--- NOTE | 2019-01-16 13:06 | CP.PCM.CON ---
History of Present Illness - History of Present Illness History of Present Illness: A 43yo female with a PMHx of DM, HTN, ESRD on Dialysis, s/p stroke presents to the ED with a right lower gluteal lump. The lump is painful, which she rates a 8/10. She noticed the lump last week. The pain is constant and does not radiate anywhere. She describes the lump as non-erythematous. Denies any drainage. She denies headaches, dizziness, chest pain, cough, SOB, constipation, diarrhea, joint pain or muscle pain. PMHx: DM, HTN, Dialysis, Stroke, left sided paralysis PSHx: Dialysis shunt (left upper arm) Meds: Reviewed in chart Allergies: Penicillin and Tazobactam Social: Denies smoking, alcohol, drugs FH- no CKD Review of Systems - Constitutional Constitutional: Fatigue, Weakness - EENT Eyes: absent: As Per HPI, Blind Spots, Blurred Vision, Change in Vision, Decreased Night Vision, Diplopia, Discharge, Dry Eye, Exophthalmos, Floaters, Irritation, Itchy Eyes, Loss of Peripheral Vision, Pain, Photophobia, Requires Corrective Lenses, Sees Flashes, Spots in Vision, Tunnel Vision, Other Visual Disturbances, Loss of Vision, Other Ears: absent: As Per HPI, Decreased Hearing, Ear Discharge, Ear Pain, Tinnitus, Abnormal Hearing, Disequilibrium, Dizziness, Other - Cardiovascular Cardiovascular: Dyspnea on Exertion, Rapid Heart Rate - Gastrointestinal Gastrointestinal: Constipation - Genitourinary Genitourinary: As Per HPI - Musculoskeletal Musculoskeletal: Muscle Cramps, Muscle Weakness, Myalgias - Neurological Neurological: Focal Weakness Past Patient History - Infectious Disease Hx of Infectious Diseases: None - Past Medical History & Family History Past Medical History?: Yes Past Family History: Reviewed and not pertinent - Past Social History Smoking Status: Never Smoked Chewing Tobacco Use: No Cigar Use: No Alcohol: None Drugs: Denies - CARDIAC Hx Congestive Heart Failure: Yes Hx Hypercholesterolemia: Yes Hx Hypertension: Yes - PULMONARY Hx Asthma: Yes Hx Chronic Obstructive Pulmonary Disease (COPD): Yes - NEUROLOGICAL HX Cerebrovascular Accident: Yes (2 years ago with left sided weakness) - HEENT Hx HEENT Problems: Yes Other/Comment: Wears Eyeglasses - RENAL Hx Chronic Kidney Disease: Yes - ENDOCRINE/METABOLIC Hx Hyperthyroidism: No - HEMATOLOGICAL/ONCOLOGICAL Hx Anemia: Yes - INTEGUMENTARY Hx Dermatological Problems: No - MUSCULOSKELETAL/RHEUMATOLOGICAL Hx Musculoskeletal Disorders: Yes Hx Back Pain: Yes Hx Falls: No - GASTROINTESTINAL Hx Gastritis: Yes - GENITOURINARY/GYNECOLOGICAL Hx Genitourinary Disorders: No - PSYCHIATRIC Hx Depression: Yes Hx Substance Use: No - SURGICAL HISTORY Hx Surgeries: Yes Hx Section: Yes Other/Comment: Insertion Of HD Cath on the R Internal Jugular; left forearm graft for dialysis. left upper arm av shunt - ANESTHESIA Hx Anesthesia: Yes Hx Anesthesia Reactions: No Hx Malignant Hyperthermia: No Meds Allergies/Adverse Reactions: Allergies Allergy/AdvReac Type Severity Reaction Status Date / Time piperacillin [From Zosyn] Allergy Mild ITCHING Verified 01/15/19 10:11 tazobactam [From Zosyn] Allergy Mild ITCHING Verified 01/15/19 10:11 - Medications Medications: Current Medications Albuterol/Ipratropium (Duoneb 3 Mg/0.5 Mg (3 Ml) Ud) 3 ml IH RQ4 [facility] Last Admin: 01/16/19 11:40 Dose: 3 ml Amlodipine Besylate (Norvasc) 5 mg PO DAILY [facility] Last Admin: 01/16/19 10:22 Dose: 5 mg Aspirin (Ecotrin) 81 mg PO DAILY [facility] Last Admin: 01/16/19 10:25 Dose: Not Given Carvedilol (Coreg) 12.5 mg PO BID [facility] Cinacalcet (Sensipar) 30 mg PO DAILY [facility] Last Admin: 01/16/19 10:26 Dose: Not Given Clopidogrel Bisulfate (Plavix) 75 mg PO DAILY [facility] Last Admin: 01/16/19 10:25 Dose: Not Given Dextrose (Dextrose 50% Inj) 0 ml IV STAT PRN; Protocol PRN Reason: Hypoglycemia Protocol Dextrose (Glutose 15) 0 gm PO ONCE PRN; Protocol PRN Reason: Hypoglycemia Protocol Docusate Sodium (Colace) 100 mg PO DAILY [facility] Last Admin: 01/16/19 10:25 Dose: Not Given Fluticasone/Vilanterol (Breo Ellipta 100-25 Mcg Inh) 1 puff INH RQD [facility] Last Admin: 01/16/19 07:55 Dose: Not Given Gabapentin (Neurontin) 100 mg PO DAILY [facility] Last Admin: 01/16/19 10:24 Dose: Not Given Glucagon (Glucagen Diagnostic Kit) 0 mg IM STAT PRN; Protocol PRN Reason: Hypoglycemia Protocol Heparin Sodium (Porcine) (Heparin) 5,000 units SC Q8 [facility] Last Admin: 01/16/19 05:57 Dose: Not Given Dextrose (Dextrose 5% In Water 1000 Ml) 1,000 mls @ 0 mls/hr IV .Q0M PRN; Protocol PRN Reason: Hypoglycemia Protocol Insulin Aspart (Novolog) [address] [facility]; Protocol Last Admin: 01/16/19 11:49 Dose: Not Given Metoclopramide HCl (Reglan) [address] [facility] Last Admin: 01/16/19 11:49 Dose: Not Given Mirtazapine (Remeron) 45 mg PO [facility] Last Admin: 01/15/19 21:40 Dose: 45 mg Pantoprazole Sodium (Protonix Ec Tab) 40 mg PO DAILY [facility] Last Admin: 01/16/19 10:26 Dose: Not Given Sertraline HCl (Zoloft) 100 mg PO DAILY [facility] Last Admin: 01/16/19 10:26 Dose: Not Given Sevelamer Carbonate (Renvela) 800 mg PO TID [facility] Last Admin: 01/16/19 10:26 Dose: Not Given Tramadol HCl (Ultram) 50 mg PO TID PRN PRN Reason: Pain, moderate (4-7) Physical Exam - Constitutional Appears: No Acute Distress, Chronically Ill - Head Exam Head Exam: ATRAUMATIC, NORMAL INSPECTION - Eye Exam Eye Exam: EOMI, Normal appearance - Neck Exam Neck exam: Positive for: Normal Inspection. Negative for: Tenderness - Respiratory Exam Respiratory Exam: Clear to Auscultation Bilateral, NORMAL BREATHING PATTERN - Cardiovascular Exam Cardiovascular Exam: REGULAR RHYTHM, +S1 - GI/Abdominal Exam GI & Abdominal Exam: Soft. absent: Tenderness - Extremities Exam Extremities exam: Positive for: normal inspection. Negative for: tenderness - Neurological Exam Neurological exam: Motor Sensory Deficit - Skin Skin Exam: Dry, Warm Results - Vital Signs Recent Vital Signs: Last Vital Signs Temp 97.9 F 01/16/19 08:00 Pulse 98 H 01/16/19 08:00 Resp 20 01/16/19 08:00 BP 181/98 H 01/16/19 08:00 Pulse Ox 96 01/16/19 08:00 - Labs Result Diagrams: 01/15/19 11:17 01/15/19 11:48 Labs: Laboratory Results - last 24 hr 01/15/19 01/15/19 01/15/19 14:02 15:24 15:26 APTT POC Glucose (mg/dL) 393 H > 500 H* 437 H* Hemoglobin A1c 01/15/19 01/15/19 01/15/19 16:43 19:48 21:18 APTT 37 H POC Glucose (mg/dL) 420 H* 324 H Hemoglobin A1c 01/16/19 01/16/19 01/16/19 07:11 11:08 11:31 APTT POC Glucose (mg/dL) 220 H 178 H Hemoglobin A1c 9.2 H Assessment & Plan (1) ESRD (end stage renal disease) Status: Acute (2) Type 2 diabetes mellitus with diabetic nephropathy Status: Acute (3) CHF (congestive heart failure) Status: Acute (4) Gluteal abscess Status: Acute - Assessment and Plan (Free Text) Plan: dialysis MWF surg eval of possible gluteal abscess HTN control
--- NOTE | 2019-01-16 17:46 | CP.PCM.PN ---
Subjective - Date & Time of Evaluation Date of Evaluation: 01/16/19 Time of Evaluation: 17:46 Objective - Vital Signs/Intake and Output Vital Signs (last 24 hours): Temp Pulse Resp BP Pulse Ox 98 F 95 H 16 157/90 H 96 01/16/19 14:10 01/16/19 17:41 01/16/19 17:41 01/16/19 17:41 01/16/19 13:07 Intake and Output: 01/16/19 01/16/19 06:59 18:59 Intake Total 300 150 Output Total 0 0 Balance 300 150 - Medications Medications: Current Medications Albuterol/Ipratropium (Duoneb 3 Mg/0.5 Mg (3 Ml) Ud) 3 ml IH RQ4 [facility] Last Admin: 01/16/19 16:45 Dose: Not Given Amlodipine Besylate (Norvasc) 5 mg PO DAILY [facility] Last Admin: 01/16/19 10:22 Dose: 5 mg Aspirin (Ecotrin) 81 mg PO DAILY [facility] Last Admin: 01/16/19 10:25 Dose: Not Given Carvedilol (Coreg) 12.5 mg PO BID [facility] Cinacalcet (Sensipar) 30 mg PO DAILY [facility] Last Admin: 01/16/19 10:26 Dose: Not Given Clopidogrel Bisulfate (Plavix) 75 mg PO DAILY [facility] Last Admin: 01/16/19 10:25 Dose: Not Given Dextrose (Dextrose 50% Inj) 0 ml IV STAT PRN; Protocol PRN Reason: Hypoglycemia Protocol Dextrose (Glutose 15) 0 gm PO ONCE PRN; Protocol PRN Reason: Hypoglycemia Protocol Docusate Sodium (Colace) 100 mg PO DAILY [facility] Last Admin: 01/16/19 10:25 Dose: Not Given Fluticasone/Vilanterol (Breo Ellipta 100-25 Mcg Inh) 1 puff INH RQD [facility] Last Admin: 01/16/19 07:55 Dose: Not Given Gabapentin (Neurontin) 100 mg PO DAILY [facility] Last Admin: 01/16/19 10:24 Dose: Not Given Glucagon (Glucagen Diagnostic Kit) 0 mg IM STAT PRN; Protocol PRN Reason: Hypoglycemia Protocol Heparin Sodium (Porcine) (Heparin) 5,000 units SC Q8 [facility] Last Admin: 01/16/19 13:09 Dose: Not Given Dextrose (Dextrose 5% In Water 1000 Ml) 1,000 mls @ 0 mls/hr IV .Q0M PRN; Protocol PRN Reason: Hypoglycemia Protocol Insulin Aspart (Novolog) 0 unit SC [facility]; Protocol Last Admin: 01/16/19 11:49 Dose: Not Given Metoclopramide HCl (Reglan) 10 mg PO ACHS [facility] Last Admin: 01/16/19 11:49 Dose: Not Given Mirtazapine (Remeron) 45 mg PO HS [facility] Last Admin: 01/15/19 21:40 Dose: 45 mg Pantoprazole Sodium (Protonix Ec Tab) 40 mg PO DAILY [facility] Last Admin: 01/16/19 10:26 Dose: Not Given Sertraline HCl (Zoloft) 100 mg PO DAILY [facility] Last Admin: 01/16/19 10:26 Dose: Not Given Sevelamer Carbonate (Renvela) 800 mg PO TID [facility] Last Admin: 01/16/19 13:09 Dose: Not Given Tramadol HCl (Ultram) 50 mg PO TID PRN PRN Reason: Pain, moderate (4-7) - Labs Labs: 01/15/19 11:17 01/15/19 11:48 APTT 37 SECONDS (21-34) H 01/15/19 19:48
[2019-01-17] MEDS: Albuterol-Ipratrop 3 mg / 0.5 (3 ml) UD IH SCH ×5 (00:23→19:40)
[2019-01-17 07:32] LABS: HEMOGLOBIN 13.3 g/dL (11.0-16.0); MEAN CELL VOLUME 86.3 fL (81.0-99.0); MEAN CORPUSCULAR HEMOGLOBIN 28.1 pg (27.0-31.0); MEAN CORPUSCULAR HGB CONC 32.6 g/dL (33.0-37.0); MEAN PLATELET VOLUME 8.9 fL (7.2-11.7); RBC 4.74 Mil/uL (3.80-5.20); RED CELL DISTRIBUTION WIDTH 19.5 % (11.5-14.5); WHITE BLOOD COUNT 8.1 K/uL (4.8-10.8)
[2019-01-17 07:37] LABS: INR 1.2
[2019-01-17 07:46] LABS: BLOOD UREA NITROGEN 33 mg/dL (7-17); CALCIUM 9.5 mg/dl (8.6-10.4); GFR NON-AFRICAN AMERICAN 8
[2019-01-17] MEDS: Fluticasone-Vilanterol 100/25mcg Diskus INH SCH (07:48)
[2019-01-17] MEDS: (Novolog) Insulin Aspart, Recombinant 100 u/ml 10 ml vial SC SCH ×4 (07:51→21:24)
[2019-01-17] MEDS ORDERED: Lidocaine Hydrochloride 10 ML INJ ONE (09:01)
[2019-01-17] MEDS ORDERED: Propofol 10 mg/ml Inj (20 ML) ONE (09:04)
[2019-01-17] MEDS: Pantoprazole 40 mg EC Tab PO SCH (09:13)
[2019-01-17] MEDS ORDERED: Dexamethasone 4 mg/1 ml IVP PRN (09:37)
[2019-01-17] MEDS ORDERED: HYDROmorphone 0.5 mg/0.5 ml ISec IVP PRN (09:37)
--- NOTE | 2019-01-17 09:38 | PCM.SURG1 ---
Surgeon's Initial Post Op Note - Surgeon's Notes Surgeon: Dr Ravi Medina Bilingual Interpreter: Jane Hardin, PGY-2 Type of Anesthesia: General IV Pre-Operative Diagnosis: Right buttock lesion Operative Findings: See op report Post-Operative Diagnosis: Infected Right buttock Sebacious cyst Operation Performed: Excision of infected right buttock sebacious cyst Specimen/Specimens Removed: sebacious cyst of right buttock, wound culture Estimated Blood Loss: EBL {In ML}: 10 Blood Products Given: N/A Drains Used: [place] Post-Op Condition: Good Date of Surgery/Procedure: 01/17/19 Time of Surgery/Procedure: 09:38
--- NOTE | 2019-01-17 10:05 | CP.PCM.PN ---
Subjective - Date & Time of Evaluation Date of Evaluation: 01/17/19 Time of Evaluation: 10:03 - Subjective Subjective: s/p sebaceous cystectomy right buttockd s/p dialysis 01/16 post op now Objective - Vital Signs/Intake and Output Vital Signs (last 24 hours): Temp Pulse Resp BP Pulse Ox 97 F L 89 11 L 108/72 100 01/17/19 09:36 01/17/19 09:51 01/17/19 09:51 01/17/19 09:51 01/17/19 09:51 Intake and Output: 01/17/19 01/17/19 06:59 18:59 Intake Total 106 Output Total 0 Balance 106 - Medications Medications: Current Medications Albuterol/Ipratropium (Duoneb 3 Mg/0.5 Mg (3 Ml) Ud) 3 ml IH RQ4 [facility] Last Admin: 01/17/19 07:48 Dose: Not Given Amlodipine Besylate (Norvasc) 5 mg PO DAILY [facility] Last Admin: 01/17/19 09:13 Dose: Not Given Aspirin (Ecotrin) 81 mg PO DAILY [facility] Last Admin: 01/17/19 09:12 Dose: Not Given Carvedilol (Coreg) 12.5 mg PO BID [facility] Last Admin: 01/17/19 09:12 Dose: Not Given Cinacalcet (Sensipar) 30 mg PO DAILY [facility] Last Admin: 01/17/19 09:13 Dose: Not Given Clopidogrel Bisulfate (Plavix) 75 mg PO DAILY [facility] Last Admin: 01/17/19 09:13 Dose: Not Given Dexamethasone (Decadron Inj) 4 mg IVP ONCE PRN PRN Reason: Nausea/Vomiting Stop: 01/17/19 11:38 Dextrose (Dextrose 50% Inj) 0 ml IV STAT PRN; Protocol PRN Reason: Hypoglycemia Protocol Dextrose (Glutose 15) 0 gm PO ONCE PRN; Protocol PRN Reason: Hypoglycemia Protocol Docusate Sodium (Colace) 100 mg PO DAILY [facility] Last Admin: 01/17/19 09:12 Dose: Not Given Fluticasone/Vilanterol (Breo Ellipta 100-25 Mcg Inh) 1 puff INH RQD [facility] Last Admin: 01/17/19 07:48 Dose: Not Given Gabapentin (Neurontin) 100 mg PO DAILY [facility] Last Admin: 01/17/19 09:13 Dose: Not Given Glucagon (Glucagen Diagnostic Kit) 0 mg IM STAT PRN; Protocol PRN Reason: Hypoglycemia Protocol Heparin Sodium (Porcine) (Heparin) 5,000 units SC Q8 [facility] Last Admin: 01/16/19 13:09 Dose: Not Given Hydromorphone HCl (Dilaudid) 0.5 mg IVP Q15M PRN PRN Reason: Pain, moderate (4-7) Stop: 01/17/19 11:38 Dextrose (Dextrose 5% In Water 1000 Ml) 1,000 mls @ 0 mls/hr IV .Q0M PRN; Protocol PRN Reason: Hypoglycemia Protocol Insulin Aspart (Novolog) [address] [facility]; Protocol Last Admin: 01/17/19 07:51 Dose: Not Given Metoclopramide HCl (Reglan) 10 mg PO [facility] Last Admin: 01/17/19 07:51 Dose: Not Given Mirtazapine (Remeron) 45 mg PO [facility] Last Admin: 01/16/19 21:31 Dose: 45 mg Pantoprazole Sodium (Protonix Ec Tab) 40 mg PO DAILY [facility] Last Admin: 01/17/19 09:13 Dose: Not Given Sertraline HCl (Zoloft) 100 mg PO DAILY [facility] Last Admin: 01/17/19 09:13 Dose: Not Given Sevelamer Carbonate (Renvela) 800 mg PO TID [facility] Last Admin: 01/17/19 09:13 Dose: Not Given Tramadol HCl (Ultram) 50 mg PO TID PRN PRN Reason: Pain, moderate (4-7) - Labs Labs: 01/17/19 07:20 01/17/19 07:20 PT 13.0 SECONDS (9.7-12.2) H 01/17/19 07:20 INR 1.2 01/17/19 07:20 APTT 36 SECONDS (21-34) H 01/17/19 07:20 - Constitutional Appears: No Acute Distress, Chronically Ill - Head Exam Head Exam: ATRAUMATIC, NORMAL INSPECTION - Eye Exam Eye Exam: EOMI, Normal appearance - Neck Exam Neck Exam: Normal Inspection. absent: Tenderness - Respiratory Exam Respiratory Exam: Clear to Ausculation Bilateral, NORMAL BREATHING PATTERN - Cardiovascular Exam Cardiovascular Exam: REGULAR RHYTHM, +S1 - GI/Abdominal Exam GI & Abdominal Exam: Soft. absent: Tenderness - Extremities Exam Extremities Exam: Normal Inspection. absent: Tenderness - Neurological Exam Neurological Exam: Awake, CN II-XII Intact - Skin Skin Exam: Dry, Warm Assessment and Plan (1) ESRD (end stage renal disease) Status: Acute (2) Type 2 diabetes mellitus with diabetic nephropathy Status: Acute (3) CHF (congestive heart failure) Status: Acute (4) Gluteal abscess Status: Acute - Assessment and Plan (Free Text) Plan: dialysis MWF monitor BP; low post op now
[2019-01-18] MEDS: Albuterol-Ipratrop 3 mg / 0.5 (3 ml) UD IH SCH ×5 (00:46→19:53)
--- NOTE | 2019-01-18 07:03 | CP.PCM.PN ---
Subjective - Date & Time of Evaluation Date of Evaluation: 01/18/19 Time of Evaluation: 07:00 - Subjective Subjective: General surgery progress note for Dr. Elvi Hardin, PGY-2 Pt seen/examined at bedside Pt reports right gluteal pain minimal, only with pressure. Denies F & C, N & V, other complaints. Tolerating diet. Slept overnight. Objective - Vital Signs/Intake and Output Vital Signs (last 24 hours): Temp Pulse Resp BP Pulse Ox 98.4 F 96 H 20 155/83 H 95 01/18/19 00:00 01/18/19 00:00 01/18/19 00:00 01/18/19 00:00 01/18/19 00:00 - Medications Medications: Current Medications Albuterol/Ipratropium (Duoneb 3 Mg/0.5 Mg (3 Ml) Ud) 3 ml IH RQ4 [facility] Last Admin: 01/18/19 04:20 Dose: Not Given Amlodipine Besylate (Norvasc) 5 mg PO DAILY [facility] Last Admin: 01/17/19 09:13 Dose: Not Given Aspirin (Ecotrin) 81 mg PO DAILY [facility] Last Admin: 01/17/19 09:12 Dose: Not Given Carvedilol (Coreg) 12.5 mg PO BID [facility] Last Admin: 01/17/19 18:17 Dose: 12.5 mg Cinacalcet (Sensipar) 30 mg PO DAILY [facility] Last Admin: 01/17/19 09:13 Dose: Not Given Clopidogrel Bisulfate (Plavix) 75 mg PO DAILY [facility] Last Admin: 01/17/19 09:13 Dose: Not Given Dextrose (Dextrose 50% Inj) 0 ml IV STAT PRN; Protocol PRN Reason: Hypoglycemia Protocol Dextrose (Glutose 15) 0 gm PO ONCE PRN; Protocol PRN Reason: Hypoglycemia Protocol Docusate Sodium (Colace) 100 mg PO DAILY [facility] Last Admin: 01/17/19 09:12 Dose: Not Given Fluticasone/Vilanterol (Breo Ellipta 100-25 Mcg Inh) 1 puff INH RQD [facility] Last Admin: 01/17/19 07:48 Dose: Not Given Gabapentin (Neurontin) 100 mg PO DAILY [facility] Last Admin: 01/17/19 09:13 Dose: Not Given Glucagon (Glucagen Diagnostic Kit) 0 mg IM STAT PRN; Protocol PRN Reason: Hypoglycemia Protocol Heparin Sodium (Porcine) (Heparin) 5,000 units SC Q8 [facility] Last Admin: 01/16/19 13:09 Dose: Not Given Dextrose (Dextrose 5% In Water 1000 Ml) 1,000 mls @ 0 mls/hr IV .Q0M PRN; Protocol PRN Reason: Hypoglycemia Protocol Insulin Aspart (Novolog) 0 unit SC [facility]; Protocol Last Admin: 01/17/19 21:24 Dose: Not Given Metoclopramide HCl (Reglan) 10 mg PO [facility] Last Admin: 01/17/19 21:22 Dose: 10 mg Mirtazapine (Remeron) 45 mg PO [facility] Last Admin: 01/17/19 21:22 Dose: 45 mg Pantoprazole Sodium (Protonix Ec Tab) 40 mg PO DAILY [facility] Last Admin: 01/17/19 09:13 Dose: Not Given Sertraline HCl (Zoloft) 100 mg PO DAILY [facility] Last Admin: 01/17/19 09:13 Dose: Not Given Sevelamer Carbonate (Renvela) 800 mg PO TID [facility] Last Admin: 01/17/19 18:18 Dose: 800 mg Tramadol HCl (Ultram) 50 mg PO TID PRN PRN Reason: Pain, moderate (4-7) Last Admin: 01/17/19 11:03 Dose: 50 mg - Labs Labs: 01/17/19 07:20 01/17/19 07:20 PT 13.0 SECONDS (9.7-12.2) H 01/17/19 07:20 INR 1.2 01/17/19 07:20 APTT 36 SECONDS (21-34) H 01/17/19 07:20 - Constitutional Appears: Non-toxic, No Acute Distress - Head Exam Head Exam: ATRAUMATIC, NORMAL INSPECTION, NORMOCEPHALIC - Eye Exam Eye Exam: EOMI, Normal appearance - ENT Exam ENT Exam: Mucous Membranes Moist, Normal Exam - Neck Exam Neck Exam: Full ROM - Respiratory Exam Respiratory Exam: NORMAL BREATHING PATTERN - Cardiovascular Exam Cardiovascular Exam: REGULAR RHYTHM, +S1, +S2 - GI/Abdominal Exam GI & Abdominal Exam: Soft. absent: Tenderness - Extremities Exam Additional comments: Right gluteal area with dressing in place- minimal amount of sanguinous strike through, intact; minimally tender to palpation over surgical site - Neurological Exam Neurological Exam: Alert, Awake, CN II-XII Intact, Oriented x3 - Psychiatric Exam Psychiatric exam: Normal Affect, Normal Mood - Skin Skin Exam: Dry, Normal Color, Warm Assessment and Plan - Assessment and Plan (Free Text) Assessment: 43F POD#1 s/p excision of infected sebaceous cyst of right buttock Plan: Continue pain control Continue ABx Local care for surgical site- Plan to change wound dressing later today Further recs pending attending evaluation Will RONNY Medina
[2019-01-18] MEDS: Fluticasone-Vilanterol 100/25mcg Diskus INH SCH (07:59)
[2019-01-18] MEDS: (Novolog) Insulin Aspart, Recombinant 100 u/ml 10 ml vial SC SCH ×4 (08:12→21:14)
[2019-01-18] MEDS: Pantoprazole 40 mg EC Tab PO SCH (09:42)
[2019-01-19] MEDS: Albuterol-Ipratrop 3 mg / 0.5 (3 ml) UD IH SCH ×5 (00:51→16:11)
--- NOTE | 2019-01-19 06:51 | OP ---
PROCEDURE DATE: 01/17/2019 INDICATION: Painful right buttock lesion. PREOPERATIVE DIAGNOSIS: Right buttock lesion. POSTOPERATIVE DIAGNOSIS: Right buttock infected sebaceous cyst. SURGEON: Anderson Medina MD V GROOVE CUTTER: Jane Hardin DO TYPE OF ANESTHESIA: General intravenous. ANESTHESIOLOGIST: Omar Escobar MD FINDINGS: Infected sebaceous cyst. SPECIMEN: Sebaceous cyst. BLOOD LOSS: 10 mL. DRAINS: One Bev. COMPLICATIONS: None. DESCRIPTION OF PROCEDURE: Maggi Anthony is a 43-year-old female with past medical history of diabetes, hypertension, end-stage renal disease on dialysis who reported to the hospital with a painful right lower gluteal lump, rated 8/10, first noted one week prior to evaluation. The patient was evaluated in and it was determined that she would benefit from surgical excision. The patient was consented for the same. All risks and benefits were explained to the patient prior to the procedure. Intraoperatively, the patient was bought into the operating room, laid in left lateral decubitus. The patient was prepped and draped in the usual sterile fashion. A time out was performed, identifying the patient, procedure, and site. General IV sedation was induced. The patient was marked and elliptical incision was made over the right gluteal mass. Circumferential dissection was performed with finding of purulent drainage, which was then cultured. The cystic sac was circumferentially excised. The cavity was irrigated with normal saline. Hemostasis was achieved with electrocautery. The incision was loosely approximated with subcuticular stitches at the medial and lateral aspects. The [place] drain was placed. A sterile dressing was then placed. The patient tolerated the procedure well. All instruments, sponges, and sutures were declared to be correct at the end of the procedure. The patient was taken to the postoperative care unit in stable condition. Jane Hardin DO Anderson Medina MD [facility]
[2019-01-19] MEDS: Fluticasone-Vilanterol 100/25mcg Diskus INH SCH (08:00)
[2019-01-19] MEDS: (Novolog) Insulin Aspart, Recombinant 100 u/ml 10 ml vial SC SCH ×3 (08:18→16:40)
--- NOTE | 2019-01-19 08:22 | CP.PCM.PN ---
Subjective - Date & Time of Evaluation Date of Evaluation: 01/19/19 Time of Evaluation: 08:19 - Subjective Subjective: General Surgery - Dr. Medina Pt S&E. NAEO. Pt denies any complaints. Small amount of drainage at the surgical site. Dressing changed. Pt oob and ambulating, tolerating diet. No fevers/chills/sob/chest pain. Objective - Vital Signs/Intake and Output Vital Signs (last 24 hours): Temp Pulse Resp BP Pulse Ox 98.1 F 88 20 145/79 96 01/19/19 08:04 01/19/19 08:04 01/19/19 08:04 01/19/19 08:04 01/19/19 08:04 Intake and Output: 01/19/19 01/19/19 06:59 18:59 Intake Total 120 Balance 120 - Medications Medications: Current Medications Albuterol/Ipratropium (Duoneb 3 Mg/0.5 Mg (3 Ml) Ud) 3 ml IH RQ4 [facility] Last Admin: 01/19/19 03:31 Dose: Not Given Amlodipine Besylate (Norvasc) 5 mg PO DAILY [facility] Last Admin: 01/18/19 09:43 Dose: 5 mg Aspirin (Ecotrin) 81 mg PO DAILY [facility] Last Admin: 01/18/19 09:42 Dose: 81 mg Carvedilol (Coreg) 12.5 mg PO BID [facility] Last Admin: 01/18/19 17:21 Dose: 12.5 mg Cinacalcet (Sensipar) 30 mg PO DAILY [facility] Last Admin: 01/18/19 09:42 Dose: 30 mg Clopidogrel Bisulfate (Plavix) 75 mg PO DAILY [facility] Last Admin: 01/18/19 09:42 Dose: 75 mg Dextrose (Dextrose 50% Inj) 0 ml IV STAT PRN; Protocol PRN Reason: Hypoglycemia Protocol Dextrose (Glutose 15) 0 gm PO ONCE PRN; Protocol PRN Reason: Hypoglycemia Protocol Docusate Sodium (Colace) 100 mg PO DAILY [facility] Last Admin: 01/18/19 09:42 Dose: 100 mg Fluticasone/Vilanterol (Breo Ellipta 100-25 Mcg Inh) 1 puff INH RQD [facility] Last Admin: 01/18/19 07:59 Dose: 1 puff Gabapentin (Neurontin) 100 mg PO DAILY [facility] Last Admin: 01/18/19 09:42 Dose: 100 mg Glucagon (Glucagen Diagnostic Kit) 0 mg IM STAT PRN; Protocol PRN Reason: Hypoglycemia Protocol Heparin Sodium (Porcine) (Heparin) 5,000 units SC Q8 [facility] Last Admin: 01/16/19 13:09 Dose: Not Given Insulin Aspart (Novolog) 0 unit SC [facility]; Protocol Last Admin: 01/19/19 08:18 Dose: Not Given Metoclopramide HCl (Reglan) 10 mg PO [facility] Last Admin: 01/19/19 07:41 Dose: 10 mg Mirtazapine (Remeron) 45 mg PO HS [facility] Last Admin: 01/18/19 21:14 Dose: 45 mg Pantoprazole Sodium (Protonix Ec Tab) 40 mg PO DAILY [facility] Last Admin: 01/18/19 09:42 Dose: 40 mg Sertraline HCl (Zoloft) 100 mg PO DAILY [facility] Last Admin: 01/18/19 09:43 Dose: 100 mg Sevelamer Carbonate (Renvela) 800 mg PO TID [facility] Last Admin: 01/18/19 17:23 Dose: 800 mg Tramadol HCl (Ultram) 50 mg PO TID PRN PRN Reason: Pain, moderate (4-7) Last Admin: 01/18/19 19:07 Dose: 50 mg - Labs Labs: 01/17/19 07:20 01/17/19 07:20 PT 13.0 SECONDS (9.7-12.2) H 01/17/19 07:20 INR 1.2 01/17/19 07:20 APTT 36 SECONDS (21-34) H 01/17/19 07:20 - Constitutional Appears: No Acute Distress - Head Exam Head Exam: ATRAUMATIC, NORMOCEPHALIC - Respiratory Exam Respiratory Exam: NORMAL BREATHING PATTERN. absent: Respiratory Distress - Cardiovascular Exam Cardiovascular Exam: REGULAR RHYTHM - Rectal Exam Additional comments: R gluteal incision s/p cyst removal, c/d/i - Neurological Exam Neurological Exam: Alert, Oriented x3 - Psychiatric Exam Psychiatric exam: Normal Affect, Normal Mood - Skin Skin Exam: Intact, Normal Color, Warm Assessment and Plan - Assessment and Plan (Free Text) Assessment: 43F POD#2 s/p excision of infected sebaceous cyst of right buttock Plan: Con. Regular diet, PO pain meds Recommend PO ABx Clear for DC home from surgical standpoint, continue daily gauze dressing ch anges after shower, instructed patient and she expressed understanding. RONNY Medina
[2019-01-19] MEDS: Pantoprazole 40 mg EC Tab PO SCH (09:14)
--- NOTE | 2019-01-19 10:58 | CP.PCM.PN ---
Subjective - Date & Time of Evaluation Date of Evaluation: 01/19/19 Time of Evaluation: 10:56 - Subjective Subjective: seen at dialysis s/p cystectomy of infected buttocks cyst; POD#2 BP labile- stable now feels better no new complaint Objective - Vital Signs/Intake and Output Vital Signs (last 24 hours): Temp Pulse Resp BP Pulse Ox 97.3 F L 90 16 127/76 97 01/19/19 10:01 01/19/19 10:01 01/19/19 10:01 01/19/19 10:05 01/19/19 09:00 Intake and Output: 01/19/19 01/19/19 06:59 18:59 Intake Total 120 Balance 120 - Medications Medications: Current Medications Albuterol/Ipratropium (Duoneb 3 Mg/0.5 Mg (3 Ml) Ud) 3 ml IH RQ4 [facility] Last Admin: 01/19/19 08:00 Dose: Not Given Amlodipine Besylate (Norvasc) 5 mg PO DAILY [facility] Last Admin: 01/19/19 09:14 Dose: Not Given Aspirin (Ecotrin) 81 mg PO DAILY [facility] Last Admin: 01/19/19 09:14 Dose: Not Given Carvedilol (Coreg) 12.5 mg PO BID [facility] Last Admin: 01/19/19 09:14 Dose: Not Given Cinacalcet (Sensipar) 30 mg PO DAILY [facility] Last Admin: 01/19/19 09:15 Dose: Not Given Clopidogrel Bisulfate (Plavix) 75 mg PO DAILY [facility] Last Admin: 01/19/19 09:14 Dose: Not Given Dextrose (Dextrose 50% Inj) 0 ml IV STAT PRN; Protocol PRN Reason: Hypoglycemia Protocol Dextrose (Glutose 15) 0 gm PO ONCE PRN; Protocol PRN Reason: Hypoglycemia Protocol Docusate Sodium (Colace) 100 mg PO DAILY [facility] Last Admin: 01/19/19 09:14 Dose: Not Given Fluticasone/Vilanterol (Breo Ellipta 100-25 Mcg Inh) 1 puff INH RQD [facility] Last Admin: 01/19/19 08:00 Dose: Not Given Gabapentin (Neurontin) 100 mg PO DAILY [facility] Last Admin: 01/19/19 09:14 Dose: Not Given Glucagon (Glucagen Diagnostic Kit) 0 mg IM STAT PRN; Protocol PRN Reason: Hypoglycemia Protocol Heparin Sodium (Porcine) (Heparin) 5,000 units SC Q8 [facility] Last Admin: 01/16/19 13:09 Dose: Not Given Insulin Aspart (Novolog) 0 unit SC [facility]; Protocol Last Admin: 01/19/19 08:18 Dose: Not Given Metoclopramide HCl (Reglan) 10 mg PO [facility] Last Admin: 01/19/19 07:41 Dose: 10 mg Mirtazapine (Remeron) 45 mg PO HS [facility] Last Admin: 01/18/19 21:14 Dose: 45 mg Pantoprazole Sodium (Protonix Ec Tab) 40 mg PO DAILY [facility] Last Admin: 01/19/19 09:14 Dose: Not Given Sertraline HCl (Zoloft) 100 mg PO DAILY [facility] Last Admin: 01/19/19 09:24 Dose: Not Given Sevelamer Carbonate (Renvela) 800 mg PO TID [facility] Last Admin: 01/19/19 09:14 Dose: Not Given Tramadol HCl (Ultram) 50 mg PO TID PRN PRN Reason: Pain, moderate (4-7) Last Admin: 01/18/19 19:07 Dose: 50 mg - Labs Labs: 01/17/19 07:20 01/17/19 07:20 PT 13.0 SECONDS (9.7-12.2) H 01/17/19 07:20 INR 1.2 01/17/19 07:20 APTT 36 SECONDS (21-34) H 01/17/19 07:20 - Constitutional Appears: No Acute Distress, Chronically Ill - Head Exam Head Exam: ATRAUMATIC, NORMAL INSPECTION - Eye Exam Eye Exam: EOMI, Normal appearance - Neck Exam Neck Exam: Normal Inspection. absent: Tenderness - Respiratory Exam Respiratory Exam: Clear to Ausculation Bilateral, NORMAL BREATHING PATTERN - Cardiovascular Exam Cardiovascular Exam: REGULAR RHYTHM, +S1 - GI/Abdominal Exam GI & Abdominal Exam: Soft. absent: Tenderness - Extremities Exam Extremities Exam: Normal Inspection. absent: Tenderness - Neurological Exam Neurological Exam: Alert, CN II-XII Intact - Skin Skin Exam: Dry, Warm Assessment and Plan (1) ESRD (end stage renal disease) Status: Acute (2) Type 2 diabetes mellitus with diabetic nephropathy Status: Acute (3) CHF (congestive heart failure) Status: Acute (4) Gluteal abscess Status: Acute - Assessment and Plan (Free Text) Plan: dialysis MWF wound care can arrange for outpt ABs; can discuss with medicine
[2019-01-19 13:31] VITALS: RESP 20
[2019-01-19] MEDS ORDERED: Moxifloxacin IV 400mg/250ml NS 400 MG/250 ML BAG IVPB ONE (13:36)
--- NOTE | 2019-01-19 13:39 | CP.PCM.PN ---
Subjective - Date & Time of Evaluation Date of Evaluation: 01/17/19 Objective - Vital Signs/Intake and Output Vital Signs (last 24 hours): Temp Pulse Resp BP Pulse Ox 98.1 F 90 20 113/75 98 01/19/19 13:30 01/19/19 13:30 01/19/19 13:30 01/19/19 13:30 01/19/19 13:30 Intake and Output: 01/19/19 01/19/19 06:59 18:59 Intake Total 120 Balance 120 - Medications Medications: Current Medications Albuterol/Ipratropium (Duoneb 3 Mg/0.5 Mg (3 Ml) Ud) 3 ml IH RQ4 [facility] Last Admin: 01/19/19 08:00 Dose: Not Given Amlodipine Besylate (Norvasc) 5 mg PO DAILY [facility] Last Admin: 01/19/19 09:14 Dose: Not Given Aspirin (Ecotrin) 81 mg PO DAILY [facility] Last Admin: 01/19/19 09:14 Dose: Not Given Carvedilol (Coreg) 12.5 mg PO BID [facility] Last Admin: 01/19/19 09:14 Dose: Not Given Cinacalcet (Sensipar) 30 mg PO DAILY [facility] Last Admin: 01/19/19 09:15 Dose: Not Given Clopidogrel Bisulfate (Plavix) 75 mg PO DAILY [facility] Last Admin: 01/19/19 09:14 Dose: Not Given Dextrose (Dextrose 50% Inj) 0 ml IV STAT PRN; Protocol PRN Reason: Hypoglycemia Protocol Dextrose (Glutose 15) 0 gm PO ONCE PRN; Protocol PRN Reason: Hypoglycemia Protocol Docusate Sodium (Colace) 100 mg PO DAILY [facility] Last Admin: 01/19/19 09:14 Dose: Not Given Fluticasone/Vilanterol (Breo Ellipta 100-25 Mcg Inh) 1 puff INH RQD [facility] Last Admin: 01/19/19 08:00 Dose: Not Given Gabapentin (Neurontin) 100 mg PO DAILY [facility] Last Admin: 01/19/19 09:14 Dose: Not Given Glucagon (Glucagen Diagnostic Kit) 0 mg IM STAT PRN; Protocol PRN Reason: Hypoglycemia Protocol Heparin Sodium (Porcine) (Heparin) 5,000 units SC Q8 [facility] Last Admin: 01/16/19 13:09 Dose: Not Given Moxifloxacin HCl (Avelox Iv 400mg/250ml Ns) 400 mg in 250 mls @ 167 mls/hr IVPB ONCE ONE; Protocol Stop: 01/19/19 15:05 Insulin Aspart (Novolog) 0 unit SC [facility]; Protocol Last Admin: 01/19/19 11:11 Dose: Not Given Metoclopramide HCl (Reglan) 10 mg PO [facility] Last Admin: 01/19/19 11:12 Dose: Not Given Mirtazapine (Remeron) 45 mg PO [facility] Last Admin: 01/18/19 21:14 Dose: 45 mg Pantoprazole Sodium (Protonix Ec Tab) 40 mg PO DAILY [facility] Last Admin: 01/19/19 09:14 Dose: Not Given Sertraline HCl (Zoloft) 100 mg PO DAILY [facility] Last Admin: 01/19/19 09:24 Dose: Not Given Sevelamer Carbonate (Renvela) 800 mg PO TID [facility] Last Admin: 01/19/19 09:14 Dose: Not Given Tramadol HCl (Ultram) 50 mg PO TID PRN PRN Reason: Pain, moderate (4-7) Last Admin: 01/18/19 19:07 Dose: 50 mg - Labs Labs: 01/17/19 07:20 01/17/19 07:20 PT 13.0 SECONDS (9.7-12.2) H 01/17/19 07:20 INR 1.2 01/17/19 07:20 APTT 36 SECONDS (21-34) H 01/17/19 07:20
--- NOTE | 2019-01-19 13:39 | CP.PCM.PN ---
Subjective - Date & Time of Evaluation Date of Evaluation: 01/18/19 Objective - Vital Signs/Intake and Output Vital Signs (last 24 hours): Temp Pulse Resp BP Pulse Ox 98.1 F 90 20 113/75 98 01/19/19 13:30 01/19/19 13:30 01/19/19 13:30 01/19/19 13:30 01/19/19 13:30 Intake and Output: 01/19/19 01/19/19 06:59 18:59 Intake Total 120 Balance 120 - Medications Medications: Current Medications Albuterol/Ipratropium (Duoneb 3 Mg/0.5 Mg (3 Ml) Ud) 3 ml IH RQ4 [facility] Last Admin: 01/19/19 08:00 Dose: Not Given Amlodipine Besylate (Norvasc) 5 mg PO DAILY [facility] Last Admin: 01/19/19 09:14 Dose: Not Given Aspirin (Ecotrin) 81 mg PO DAILY [facility] Last Admin: 01/19/19 09:14 Dose: Not Given Carvedilol (Coreg) 12.5 mg PO BID [facility] Last Admin: 01/19/19 09:14 Dose: Not Given Cinacalcet (Sensipar) 30 mg PO DAILY [facility] Last Admin: 01/19/19 09:15 Dose: Not Given Clopidogrel Bisulfate (Plavix) 75 mg PO DAILY [facility] Last Admin: 01/19/19 09:14 Dose: Not Given Dextrose (Dextrose 50% Inj) 0 ml IV STAT PRN; Protocol PRN Reason: Hypoglycemia Protocol Dextrose (Glutose 15) 0 gm PO ONCE PRN; Protocol PRN Reason: Hypoglycemia Protocol Docusate Sodium (Colace) 100 mg PO DAILY [facility] Last Admin: 01/19/19 09:14 Dose: Not Given Fluticasone/Vilanterol (Breo Ellipta 100-25 Mcg Inh) 1 puff INH RQD [facility] Last Admin: 01/19/19 08:00 Dose: Not Given Gabapentin (Neurontin) 100 mg PO DAILY [facility] Last Admin: 01/19/19 09:14 Dose: Not Given Glucagon (Glucagen Diagnostic Kit) 0 mg IM STAT PRN; Protocol PRN Reason: Hypoglycemia Protocol Heparin Sodium (Porcine) (Heparin) 5,000 units SC Q8 [facility] Last Admin: 01/16/19 13:09 Dose: Not Given Moxifloxacin HCl (Avelox Iv 400mg/250ml Ns) 400 mg in 250 mls @ 167 mls/hr IVPB ONCE ONE; Protocol Stop: 01/19/19 15:05 Insulin Aspart (Novolog) [address] [facility]; Protocol Last Admin: 01/19/19 11:11 Dose: Not Given Metoclopramide HCl (Reglan) [address] [facility] Last Admin: 01/19/19 11:12 Dose: Not Given Mirtazapine (Remeron) 45 mg PO [facility] Last Admin: 01/18/19 21:14 Dose: 45 mg Pantoprazole Sodium (Protonix Ec Tab) 40 mg PO DAILY [facility] Last Admin: 01/19/19 09:14 Dose: Not Given Sertraline HCl (Zoloft) 100 mg PO DAILY [facility] Last Admin: 01/19/19 09:24 Dose: Not Given Sevelamer Carbonate (Renvela) 800 mg PO TID [facility] Last Admin: 01/19/19 09:14 Dose: Not Given Tramadol HCl (Ultram) 50 mg PO TID PRN PRN Reason: Pain, moderate (4-7) Last Admin: 01/18/19 19:07 Dose: 50 mg - Labs Labs: 01/17/19 07:20 01/17/19 07:20 PT 13.0 SECONDS (9.7-12.2) H 01/17/19 07:20 INR 1.2 01/17/19 07:20 APTT 36 SECONDS (21-34) H 01/17/19 07:20
[2019-01-19] MEDS ORDERED: Vancomycin 1 GM 1 GM/250 ML BAG IVPB STA (14:07)
[2019-01-19 16:14] VITALS: PULSE 98; TEMP 97.7; O2SAT 100
[2019-01-19 17:47] VITALS: BP 142/78
--- NOTE | 2019-01-19 18:02 | CP.PCM.PN ---
Objective - Vital Signs/Intake and Output Vital Signs (last 24 hours): Temp Pulse Resp BP Pulse Ox 97.7 F 98 H 20 142/78 100 01/19/19 16:00 01/19/19 16:00 01/19/19 16:00 01/19/19 17:45 01/19/19 16:00 Intake and Output: 01/19/19 01/19/19 06:59 18:59 Intake Total 120 Balance 120 - Medications Medications: Current Medications Albuterol/Ipratropium (Duoneb 3 Mg/0.5 Mg (3 Ml) Ud) 3 ml IH RQ4 [facility] Last Admin: 01/19/19 16:11 Dose: Not Given Amlodipine Besylate (Norvasc) 5 mg PO DAILY [facility] Last Admin: 01/19/19 09:14 Dose: Not Given Aspirin (Ecotrin) 81 mg PO DAILY [facility] Last Admin: 01/19/19 09:14 Dose: Not Given Carvedilol (Coreg) 12.5 mg PO BID [facility] Last Admin: 01/19/19 17:45 Dose: 12.5 mg Cinacalcet (Sensipar) 30 mg PO DAILY [facility] Last Admin: 01/19/19 09:15 Dose: Not Given Clopidogrel Bisulfate (Plavix) 75 mg PO DAILY [facility] Last Admin: 01/19/19 09:14 Dose: Not Given Dextrose (Dextrose 50% Inj) 0 ml IV STAT PRN; Protocol PRN Reason: Hypoglycemia Protocol Dextrose (Glutose 15) 0 gm PO ONCE PRN; Protocol PRN Reason: Hypoglycemia Protocol Docusate Sodium (Colace) 100 mg PO DAILY [facility] Last Admin: 01/19/19 09:14 Dose: Not Given Fluticasone/Vilanterol (Breo Ellipta 100-25 Mcg Inh) 1 puff INH RQD [facility] Last Admin: 01/19/19 08:00 Dose: Not Given Gabapentin (Neurontin) 100 mg PO DAILY [facility] Last Admin: 01/19/19 09:14 Dose: Not Given Glucagon (Glucagen Diagnostic Kit) 0 mg IM STAT PRN; Protocol PRN Reason: Hypoglycemia Protocol Heparin Sodium (Porcine) (Heparin) 5,000 units SC Q8 [facility] Last Admin: 01/16/19 13:09 Dose: Not Given Insulin Aspart (Novolog) 0 unit SC [facility]; Protocol Last Admin: 03/04/19 16:40 Dose: 2 u Metoclopramide HCl (Reglan) 10 mg PO [facility] Last Admin: 01/19/19 17:45 Dose: 10 mg Mirtazapine (Remeron) 45 mg PO HS [facility] Last Admin: 01/18/19 21:14 Dose: 45 mg Pantoprazole Sodium (Protonix Ec Tab) 40 mg PO DAILY [facility] Last Admin: 01/19/19 09:14 Dose: Not Given Sertraline HCl (Zoloft) 100 mg PO DAILY [facility] Last Admin: 01/19/19 09:24 Dose: Not Given Sevelamer Carbonate (Renvela) 800 mg PO TID [facility] Last Admin: 01/19/19 17:45 Dose: 800 mg Tramadol HCl (Ultram) 50 mg PO TID PRN PRN Reason: Pain, moderate (4-7) Last Admin: 01/18/19 19:07 Dose: 50 mg - Labs Labs: 01/17/19 07:20 01/17/19 07:20 PT 13.0 SECONDS (9.7-12.2) H 01/17/19 07:20 INR 1.2 01/17/19 07:20 APTT 36 SECONDS (21-34) H 01/17/19 07:20 Assessment and Plan - Assessment and Plan (Free Text) Assessment: 43 YEAR OLD FEMALE WITH buttock mass, ESRD, s/p I&D , SEEN AND EXAMINED.
--- NOTE | 2019-01-19 22:10 | CP.PCM.DIS ---
Provider - Provider Date of Admission: 01/15/19 14:23 Attending physician: Bertha Walker MD Consults: 01/15/19 14:26 General Surgery Consult Stat Comment: Consulting Provider: Anderson Medina Consulting Physician: Anderson Medina Reason for Consult: mass on right buttock 01/16/19 08:56 Nephrology Consult Routine Comment: Consulting Provider: Parviz Rogers Consulting Physician: Parviz Rogers Reason for Consult: need HD before or Hospital Course - Lab Results Lab Results: Micro Results 01/17/19 10:31 Abscess - Buttock-Right Gram Stain - Final 01/17/19 10:31 Abscess - Buttock-Right Wound Culture - Final Staphylococcus Lugdunensis Most Recent Lab Values WBC 8.1 K/uL (4.8-10.8) 01/17/19 07:20 RBC 4.74 Mil/uL (3.80-5.20) 01/17/19 07:20 Hgb 13.3 g/dL (11.0-16.0) 01/17/19 07:20 Hct 40.9 % (34.0-47.0) 01/17/19 07:20 MCV 86.3 fL (81.0-99.0) 01/17/19 07:20 MCH 28.1 pg (27.0-31.0) 01/17/19 07:20 MCHC 32.6 g/dL (33.0-37.0) L 01/17/19 07:20 RDW 19.5 % (11.5-14.5) H 01/17/19 07:20 Plt Count 219 K/uL (130-400) 01/17/19 07:20 MPV 8.9 fL (7.2-11.7) 01/17/19 07:20 Neut % (Auto) 58.4 % (50.0-75.0) 01/15/19 11:17 Lymph % (Auto) 22.3 % (20.0-40.0) 01/15/19 11:17 [place] % (Auto) 12.7 % (0.0-10.0) H 01/15/19 11:17 Eos % (Auto) 5.5 % (0.0-4.0) H 01/15/19 11:17 Baso % (Auto) 1.1 % (0.0-2.0) 01/15/19 11:17 Neut # (Auto) 5.0 K/uL (1.8-7.0) 01/15/19 11:17 Lymph # (Auto) 1.9 K/uL (1.0-4.3) 01/15/19 11:17 [place] # (Auto) 1.1 K/uL (0.0-0.8) H 01/15/19 11:17 Eos # (Auto) 0.5 K/uL (0.0-0.7) 01/15/19 11:17 Baso # (Auto) 0.1 K/uL (0.0-0.2) 01/15/19 11:17 PT 13.0 SECONDS (9.7-12.2) H 01/17/19 07:20 INR 1.2 01/17/19 07:20 APTT 36 SECONDS (21-34) H 01/17/19 07:20 Sodium 138 mmol/L (132-148) 01/17/19 07:20 Potassium 4.1 mmol/L (3.6-5.2) 01/17/19 07:20 Chloride 94 mmol/L (98-107) L 01/17/19 07:20 Carbon Dioxide 32 mmol/L (22-30) H 01/17/19 07:20 Anion Gap 17 (10-20) 01/17/19 07:20 BUN 33 mg/dL (7-17) H 01/17/19 07:20 Creatinine 5.6 mg/dL (0.7-1.2) H 01/17/19 07:20 Est GFR ( Amer) 10 01/17/19 07:20 Est GFR (Non-Af Amer) 8 01/17/19 07:20 POC Glucose (mg/dL) 195 mg/dL (65-110) H 01/19/19 16:27 Random Glucose 334 mg/dL (65-105) H 01/17/19 07:20 Hemoglobin A1c 9.2 % (4.2-6.5) H 01/16/19 11:31 Calcium 9.5 mg/dl (8.6-10.4) 01/17/19 07:20 Phosphorus 4.7 mg/dL (2.5-4.5) H 01/17/19 07:20 Magnesium 2.0 mg/dL (1.6-2.3) 01/17/19 07:20 Total Bilirubin 1.0 mg/dL (0.2-1.3) 01/15/19 11:48 AST 71 U/L (14-36) H D 01/15/19 11:48 ALT 59 U/L (9-52) H D 01/15/19 11:48 Alkaline Phosphatase 497 U/L (38-126) H D 01/15/19 11:48 Total Protein 9.3 g/dL (6.3-8.3) H 01/15/19 11:48 Albumin 4.1 g/dL (3.5-5.0) 01/15/19 11:48 Globulin 5.2 gm/dL (2.2-3.9) H 01/15/19 11:48 Albumin/Globulin Ratio 0.8 (1.0-2.1) L 01/15/19 11:48 Beta HCG, Quant < 2.39 mIU/ML 01/17/19 07:20 Discharge Exam - Head Exam Head Exam: ATRAUMATIC, NORMAL INSPECTION Discharge Plan - Discharge Medications Prescriptions: Levofloxacin [Levaquin] 500 mg PO DAILY #7 tablet - Follow Up Plan Condition: GOOD Disposition: HOME/ ROUTINE Instructions: Heart Healthy Diet, Heart Failure, Adult (DC), Levofloxacin (Systemic), End Stage Kidney Disease (DC) Additional Instructions: levaquin 500mg po dailyx7 days follow up with surgery in 1 week change guaze on the buttocks site daily after shower as instructed follow up with PMD in 1 week. Referrals: Serene Manzo MD [Staff Provider] -
--- NOTE | 2019-01-21 12:15 | CARD ---
APPROVED REPORT Date of service: 01/16/2019 EKG Measurement Heart [id number] <Conclusion> Normal sinus rhythm Possible Left atrial enlargement Left posterior fascicular block Abnormal ECG
== END 2019-01-19 20:09 | disposition home or self-care (01) ==
LOC: C.ER 10:07 → C.9E 14:23 → C.3T 15:47 → C.3D 01-16 13:44 → C.3T 01-16 13:45
PROVIDERS: ADMIT Internal Medicine Critical Care Medicine; ATTEND Internal Medicine Critical Care Medicine
DX: L72.0 Epidermal cyst (principal); L02.31 Cutaneous abscess of buttock; E11.22 Type 2 diabetes mellitus with diabetic chronic kidney disease; I13.2 Hypertensive heart and chronic kidney disease with heart failure and with stage 5 chronic kidney disease, or end stage renal disease; I50.9 Heart failure, unspecified; N18.6 End stage renal disease; Z99.2 Dependence on renal dialysis; E78.00 Pure hypercholesterolemia, unspecified; J44.9 Chronic obstructive pulmonary disease, unspecified; E11.21 Type 2 diabetes mellitus with diabetic nephropathy; I69.354 Hemiplegia and hemiparesis following cerebral infarction affecting left non-dominant side
CPT/HCPCS: 11402; 12031; 36415; 76881; 80048; 80053; 82948; 83036; 83735; 84100; 84702; 85025; 85027; 85610; 85730; 87070; 87181; 88305; 94640; 96372; 99285; G0257; G0378; J2704; J3010; J3370

== ENCOUNTER 2019-02-11 10:41 | Emergency (ER) | payer MEDICARE, OTHER ==
[2019-02-11 10:41] VITALS: BMI 23.7
[2019-02-11] MEDS ORDERED: Oxymetazoline 0.05% Nasal Spray (30 ml) NS STA (10:59)
--- NOTE | 2019-02-11 11:05 | C.PDOC ---
History Of Present Illness 43 year old female with PMHx of HTN presents to the ED for left nare bleeding. Reports she was getting dialysis this morning when the bleeding started. Notes she completed dialysis and was then sent for evaluation. Patient is not actively bleeding in the ED. Denies any nausea, vomiting, diarrhea, fever, chills, chest pain, shortness of breath, headache, or any other symptoms. Time Seen by Provider: 02/11/19 10:44 Chief Complaint (Nursing): ENT Problem History Per: Patient History/Exam Limitations: None Onset/Duration Of Symptoms: Hrs Current Symptoms Are (Timing): Gone Severity: Mild Anticoagulant/Antiplatlet Use?: No Past Medical History Reviewed: Historical Data, Nursing Documentation, Vital Signs Vital Signs: Last Vital Signs Temp 98.7 F 02/11/19 10:43 Pulse 107 H 02/11/19 10:43 Resp 20 02/11/19 10:43 BP 186/98 H 02/11/19 10:43 Pulse Ox 98 02/11/19 10:43 - Medical History PMH: Anemia, Asthma, CHF, COPD, Depression, Diabetes (IDDM), Gastritis, HTN, Hypercholesterolemia, End Stage Renal Disease, Chronic Kidney Disease Denies: Hyperthyroidism Surgical History: - [facility] Procedures (08/22/18) DILATION OF UPPER VEIN, PERCUTANEOUS APPROACH (01/18/18) DRAINAGE OF PERITONEAL CAVITY, PERCUTANEOUS APPROACH (01/18/18) DRAINAGE OF RIGHT PLEURAL CAVITY, PERC APPROACH, DIAGN (03/14/18) DRAINAGE OF RIGHT PLEURAL CAVITY, PERCUTANEOUS APPROACH (12/18/17) ESOPHAGOGASTRODUODENOSCOPY [EGD] W/CLOSED BIOPSY (06/18/15) EXCISION OF STOMACH, ENDO, DIAGN (09/02/16) INSERT INFUSION DEV IN R INT JUGULAR VEIN, PERC (01/18/18) INSERTION OF ENDOTRACHEAL AIRWAY INTO TRACHEA, VIA OPENING (01/18/18) OTHER SKIN & SUBQ I D (08/07/15) PERFORMANCE OF URINARY FILTRATION, MULTIPLE (09/02/16) PLAIN RADIOGRAPHY OF DIALYSIS SHUNT USING OTH CONTRAST (01/18/18) RESPIRATORY VENTILATION, 24-96 CONSECUTIVE HOURS (01/18/18) TRANSFUSE NONAUT RED BLOOD CELLS IN PERIPH VEIN, PERC (05/23/18) ULTRASONOGRAPHY OF LEFT UPPER EXTREMITY VEINS (09/02/16) ULTRASONOGRAPHY OF RIGHT JUGULAR VEINS, GUIDANCE (01/18/18) Family History: States: No Known Family Hx - Social History Hx Tobacco Use: No Hx Alcohol Use: No Hx Substance Use: No - Immunization History Hx Tetanus Toxoid Vaccination: Yes Hx Influenza Vaccination: No Hx Pneumococcal Vaccination: Yes Review Of Systems Except As Marked, All Systems Reviewed And Found Negative. Constitutional: Negative for: Fever, Chills ENT: Positive for: Nose Discharge (epistaxis ) Cardiovascular: Negative for: Chest Pain Respiratory: Negative for: Shortness of Breath Gastrointestinal: Negative for: Nausea, Vomiting, Diarrhea Skin: Negative for: Rash Neurological: Negative for: Headache Physical Exam - Physical Exam Appears: Non-toxic, No Acute Distress Skin: Warm, Dry, Other (fistula left upper arm) Head: Normacephalic Eye(s): bilateral: Normal Inspection Nose: Discharge, Epistaxis (small amounts of blood noted in left nare) Oral Mucosa: Moist Tongue: Normal Appearing Lips: Normal Appearing Teeth: Normal Dentition Gingiva: Normal Appearing Throat: No Erythema, No Exudate Neck: Supple Chest: Symmetrical Cardiovascular: Rhythm Regular Respiratory: Normal Breath Sounds, No Rales, No Rhonchi, No Wheezing Gastrointestinal/Abdominal: Soft, No Tenderness Neurological/Psych: Oriented x3, Normal Speech Gait: Steady ED Course And Treatment O2 Sat by Pulse Oximetry: 98 (RA) Pulse Ox Interpretation: Normal Progress Note: Patient treated with cotton ball with afrin. Treated with norvasc and clonidine for elevated B/P, patient did not take her meds this am. Patient continues to have light bleeding from left nostril. Rhino rocket inserted into left nostril. thrated with zithromax PO. On re-evaluation no bleeding noted, nasal packing in place Reassessment Condition: Improved Medical Decision Making Medical Decision Making: Plan - Afrin 1ml NS - Observation Disposition Counseled Patient/Family Regarding: Studies Performed, Diagnosis, Need For Followup, Rx Given - Disposition Referrals: Alli Leiva MD [Staff Provider] - Disposition: HOME/ ROUTINE Disposition Time: 13:45 Condition: IMPROVED Additional Instructions: Follow up with ENT for further evaluation Take your medication as directed Prescriptions: Azithromycin [Zithromax] 250 mg PO DAILY #4 tab Instructions: Nosebleeds Forms: [facility] (German) - POA Present On Arrival: None - Clinical Impression Clinical Impression: Hypertension, Epistaxis - PA / SEASONAL SALES ASSOCIATE / Resident Statement MD/DO has reviewed & agrees with the documentation as recorded. - Scribe Statement The provider has reviewed the documentation as recorded by the Scribe Pushpa Medina All medical record entries made by the Tawanda were at my direction and personally dictated by me. I have reviewed the chart and agree that the record accurately reflects my personal performance of the history, physical exam, medical decision making, and the department course for this patient. I have also personally directed, reviewed, and agree with the discharge instructions and disposition.
[2019-02-11 13:02] VITALS: BP 191/100; PULSE 95; RESP 18; TEMP 98.9
[2019-02-11 13:28] VITALS: O2SAT 98
== END 2019-02-11 16:22 | disposition home or self-care (01) ==
LOC: C.ER 10:41
DX: R04.0 Epistaxis (principal); I10 Essential (primary) hypertension

== ENCOUNTER 2019-02-14 11:10 | Emergency (ER) | payer MEDICARE, OTHER ==
[2019-02-14 11:28] VITALS: BMI 25.3
--- NOTE | 2019-02-14 12:23 | C.PDOC ---
History Of Present Illness 43 year old female presents to the ED for removal of left nare packing placed three days ago for nose bleed. Reports she was unable to get appointment with ENT specialist Dr. Leiva. Denies any pain or nose bleeding. Denies any other complaints. Time Seen by Provider: 02/14/19 12:04 Chief Complaint (Nursing): ENT Problem History Per: Patient History/Exam Limitations: None Onset/Duration Of Symptoms: Days Current Symptoms Are (Timing): Gone Past Medical History Reviewed: Historical Data, Nursing Documentation, Vital Signs Vital Signs: Last Vital Signs Temp 98.5 F 02/14/19 11:29 Pulse 85 02/14/19 11:29 Resp 16 02/14/19 11:29 BP 150/87 02/14/19 11:29 Pulse Ox 100 02/14/19 11:29 - Medical History PMH: Anemia, Asthma, CHF, COPD, Depression, Diabetes (IDDM), Gastritis, HTN, Hypercholesterolemia, End Stage Renal Disease, Chronic Kidney Disease Denies: Hyperthyroidism Surgical History: - [facility] Procedures (08/22/18) DILATION OF UPPER VEIN, PERCUTANEOUS APPROACH (01/18/18) DRAINAGE OF PERITONEAL CAVITY, PERCUTANEOUS APPROACH (01/18/18) DRAINAGE OF RIGHT PLEURAL CAVITY, PERC APPROACH, DIAGN (03/14/18) DRAINAGE OF RIGHT PLEURAL CAVITY, PERCUTANEOUS APPROACH (12/18/17) ESOPHAGOGASTRODUODENOSCOPY [EGD] W/CLOSED BIOPSY (06/18/15) EXCISION OF STOMACH, ENDO, DIAGN (09/02/16) INSERT INFUSION DEV IN R INT JUGULAR VEIN, PERC (01/18/18) INSERTION OF ENDOTRACHEAL AIRWAY INTO TRACHEA, VIA OPENING (01/18/18) OTHER SKIN & SUBQ I D (08/07/15) PERFORMANCE OF URINARY FILTRATION, MULTIPLE (09/02/16) PLAIN RADIOGRAPHY OF DIALYSIS SHUNT USING OTH CONTRAST (01/18/18) RESPIRATORY VENTILATION, 24-96 CONSECUTIVE HOURS (01/18/18) TRANSFUSE NONAUT RED BLOOD CELLS IN PERIPH VEIN, PERC (05/23/18) ULTRASONOGRAPHY OF LEFT UPPER EXTREMITY VEINS (09/02/16) ULTRASONOGRAPHY OF RIGHT JUGULAR VEINS, GUIDANCE (01/18/18) Family History: States: No Known Family Hx - Social History Hx Tobacco Use: No Hx Alcohol Use: No Hx Substance Use: No - Immunization History Hx Tetanus Toxoid Vaccination: Yes Hx Influenza Vaccination: No Hx Pneumococcal Vaccination: Yes Review Of Systems Except As Marked, All Systems Reviewed And Found Negative. Constitutional: Negative for: Fever, Chills ENT: Positive for: Other (left nare packing, no active bleeding ). Negative for: Nose Discharge Gastrointestinal: Negative for: Nausea, Vomiting, Diarrhea Neurological: Negative for: Headache Physical Exam - Physical Exam Appears: Non-toxic, No Acute Distress Skin: Warm, Dry, No Rash Head: Atraumatic, Normacephalic Eye(s): bilateral: Normal Inspection, PERRL, EOMI Ear(s): Bilateral: Normal Nose: Other (posterior rhino rocket noted in left nare, no active bleeding ) Oral Mucosa: Moist Tongue: Normal Appearing Lips: Normal Appearing Throat: No Erythema, No Exudate, Other (No bleeding in the posterior pharynx) Neck: Normal ROM, Supple Chest: Symmetrical Cardiovascular: Rhythm Regular Respiratory: Other (No acute respiratory distress) Neurological/Psych: Oriented x3, Normal Speech Gait: Steady ED Course And Treatment O2 Sat by Pulse Oximetry: 100 (RA) Pulse Ox Interpretation: Normal Medical Decision Making Medical Decision Making: Procedure: Packing in left nare was removed without difficulty. Patient tolerated procedure well. No bleeding was noted. Patient states she was an appointment with Dr. Leiva next week. Patient instructed to follow up. Patient stable for discharge and given follow up instructions. Disposition - Disposition Disposition: HOME/ ROUTINE Disposition Time: 12:30 Condition: STABLE Additional Instructions: Follow up with Dr. Leiva next week as scheduled. Return if worsened. Instructions: Nosebleeds (DC) Forms: [employer] ([place] Citizen) - Clinical Impression Clinical Impression: Encounter for removal of nasal packing - PA / CERTIFIED DIABETES EDUCATOR / Resident Statement MD/DO has reviewed & agrees with the documentation as recorded. - Scribe Statement The provider has reviewed the documentation as recorded by the Scribe Pushpa Medina All medical record entries made by the Fransiscaibaashish were at my direction and personally dictated by me. I have reviewed the chart and agree that the record accurately reflects my personal performance of the history, physical exam, medical decision making, and the department course for this patient. I have also personally directed, reviewed, and agree with the discharge instructions and disposition.
[2019-02-14 12:32] VITALS: BP 164/94; PULSE 91; RESP 18; TEMP 98.2
[2019-02-14 22:44] VITALS: O2SAT 100
== END 2019-02-14 12:32 | disposition home or self-care (01) ==
LOC: C.ER 11:10
DX: E78.00 Pure hypercholesterolemia, unspecified (principal); E10.9 Type 1 diabetes mellitus without complications; I12.0 Hypertensive chronic kidney disease with stage 5 chronic kidney disease or end stage renal disease; N18.6 End stage renal disease; J44.9 Chronic obstructive pulmonary disease, unspecified; I50.9 Heart failure, unspecified; Z79.4 Long term (current) use of insulin

== ENCOUNTER 2019-02-17 15:41 | Observation (INO) | payer MEDICARE, OTHER ==
[2019-02-17 16:06] VITALS: BMI 23.7
[2019-02-17] MEDS ORDERED: Desmopressin 20 MCG in Sodium Chloride 0.9% 50 ML IV ONE (17:21)
[2019-02-17 17:52] LABS: BASO # 0.1 K/uL (0.0-0.2); EOS # 0.6 K/uL (0.0-0.7); EOS % 9.5 % (0.0-4.0); HEMOGLOBIN 10.1 g/dL (11.0-16.0); LYMPH # 1.8 K/uL (1.0-4.3); LYMPH % 29.8 % (20.0-40.0); MEAN CELL VOLUME 85.4 fL (81.0-99.0); MEAN CORPUSCULAR HEMOGLOBIN 27.5 pg (27.0-31.0); MEAN CORPUSCULAR HGB CONC 32.2 g/dL (33.0-37.0); MEAN PLATELET VOLUME 9.1 fL (7.2-11.7); MONO # 0.9 K/uL (0.0-0.8); MONO % 14.9 % (0.0-10.0); NEUT # 2.6 K/uL (1.8-7.0); NEUT % 44.8 % (50.0-75.0); NRBC % 0.1 % (0.0-2.0); RBC 3.68 Mil/uL (3.80-5.20); RED CELL DISTRIBUTION WIDTH 19.7 % (11.5-14.5); WHITE BLOOD COUNT 5.9 K/uL (4.8-10.8)
[2019-02-17 18:05] LABS: INR 1.2; PROTHROMBIN TIME 13.4 SECONDS (9.7-12.2)
[2019-02-17 18:50] LABS: ALB/GLOB RATIO 0.9 (1.0-2.1); CALCIUM 9.7 mg/dl (8.6-10.4)
--- NOTE | 2019-02-17 19:07 | C.PDOC ---
History Of Present Illness Pt c/o left nose bleeds. Pt was seen in this ED and had nasal packing, but bleeding keeps recurring. Time Seen by Provider: 02/17/19 16:35 Chief Complaint (Nursing): ENT Problem History Per: Patient, Family (Mother) Onset/Duration Of Symptoms: Days (1 week) Current Symptoms Are (Timing): Still Present Location Of Bleeding: Left Nare Symptoms Have Been: Episodic Severity: Moderate Additional History Per: Prior Records Past Medical History Reviewed: Historical Data, Nursing Documentation, Vital Signs Vital Signs: Last Vital Signs Temp 97.9 F 02/17/19 16:30 Pulse 97 H 02/17/19 16:30 Resp 18 02/17/19 16:30 BP 183/109 H 02/17/19 16:30 Pulse Ox 95 02/17/19 16:30 - Medical History PMH: Anemia, Asthma, CHF, COPD, Depression, Diabetes (IDDM), Gastritis, HTN, Hypercholesterolemia, End Stage Renal Disease (on hemodialysis), Chronic Kidney Disease Surgical History: - [facility] Procedures (08/22/18) DILATION OF UPPER VEIN, PERCUTANEOUS APPROACH (01/18/18) DRAINAGE OF PERITONEAL CAVITY, PERCUTANEOUS APPROACH (01/18/18) DRAINAGE OF RIGHT PLEURAL CAVITY, PERC APPROACH, DIAGN (03/14/18) DRAINAGE OF RIGHT PLEURAL CAVITY, PERCUTANEOUS APPROACH (12/18/17) ESOPHAGOGASTRODUODENOSCOPY [EGD] W/CLOSED BIOPSY (06/18/15) EXCISION OF STOMACH, ENDO, DIAGN (09/02/16) INSERT INFUSION DEV IN R INT JUGULAR VEIN, PERC (01/18/18) INSERTION OF ENDOTRACHEAL AIRWAY INTO TRACHEA, VIA OPENING (01/18/18) OTHER SKIN & SUBQ I D (08/07/15) PERFORMANCE OF URINARY FILTRATION, MULTIPLE (09/02/16) PLAIN RADIOGRAPHY OF DIALYSIS SHUNT USING OTH CONTRAST (01/18/18) RESPIRATORY VENTILATION, 24-96 CONSECUTIVE HOURS (01/18/18) TRANSFUSE NONAUT RED BLOOD CELLS IN PERIPH VEIN, PERC (05/23/18) ULTRASONOGRAPHY OF LEFT UPPER EXTREMITY VEINS (09/02/16) ULTRASONOGRAPHY OF RIGHT JUGULAR VEINS, GUIDANCE (01/18/18) Family History: States: Unknown Family Hx - Social History Hx Tobacco Use: No Hx Alcohol Use: No Hx Substance Use: No - Immunization History Hx Tetanus Toxoid Vaccination: Yes Hx Influenza Vaccination: No Hx Pneumococcal Vaccination: Yes Review Of Systems Except As Marked, All Systems Reviewed And Found Negative. Constitutional: Negative for: Fever Cardiovascular: Negative for: Chest Pain Respiratory: Negative for: Shortness of Breath Gastrointestinal: Negative for: Vomiting, Abdominal Pain Musculoskeletal: Negative for: Neck Pain Physical Exam - Physical Exam Appears: No Acute Distress, Chronically Ill Skin: Warm, Dry Head: Atraumatic Eye(s): bilateral: PERRL Nose: Epistaxis (from left nare blood/oozing present. No exact source able to be identified.), No Septal Hematoma Throat: Normal Neck: Normal ROM, Supple Cardiovascular: Rhythm Regular Respiratory: Normal Breath Sounds, No Accessory Muscle Use Extremity: Normal ROM Neurological/Psych: Oriented x3 ED Course And Treatment - Laboratory Results Result Diagrams: 02/17/19 17:48 02/17/19 17:48 Lab Results: PT 13.4 SECONDS (9.7-12.2) H 02/17/19 17:48 INR 1.2 02/17/19 17:48 APTT 40 SECONDS (21-34) H 02/17/19 17:48 Total Bilirubin 1.2 mg/dL (0.2-1.3) 02/17/19 17:48 AST 73 U/L (14-36) H 02/17/19 17:48 ALT 37 U/L (9-52) 02/17/19 17:48 Alkaline Phosphatase 678 U/L (38-126) H D 02/17/19 17:48 Total Protein 10.3 g/dL (6.3-8.3) H 02/17/19 17:48 Albumin 5.0 g/dL (3.5-5.0) D 02/17/19 17:48 Globulin 5.3 gm/dL (2.2-3.9) H 02/17/19 17:48 Albumin/Globulin Ratio 0.9 (1.0-2.1) L 02/17/19 17:48 Interpretation Of Abnormal: Hgb dropped by 3 points since 1 month ago. Uremia. O2 Sat by Pulse Oximetry: 95 Pulse Ox Interpretation: Normal Progress - Interventions Interventions:: Observation - Medications Administered Oral: Antihypertensive Intravenous: Other (DDAVP) - Data Reviewed Data Reviewed: Lab, Old records - Patient Status Patient status: Mostly improved - Continuity of Care Discussed patient case with:: Patient, Family-HIPPA compliant, ED Nurse, Covering for PMD - Patient Plan Patient Plan: Observation Disposition Discussed With : Sylvain Smith Comment: He accepted pt on his service and will consult ENT. Doctor Will See Patient In The: Hospital Counseled Patient/Family Regarding: Studies Performed, Diagnosis - Disposition Disposition: HOSPITALIZED Disposition Time: 19:15 Condition: FAIR - Clinical Impression Clinical Impression: ESRD (end stage renal disease) on dialysis, Epistaxis, recurrent, Anemia Procedures - Epistaxis Control Consent Obtained: verbal consent Nostril: Left Direct Inspection: yes Clots Removed by: manually Cautery Used: none Device Inserted: other (Rhino rocket) Patient Tolerated Procedure: well, no complications
--- NOTE | 2019-02-17 19:27 | CP.PCM.HP ---
Past Patient History - Infectious Disease Hx of Infectious Diseases: None - Past Medical History & Family History Past Medical History?: Yes - Past Social History Smoking Status: Never Smoked - CARDIAC Hx Congestive Heart Failure: Yes Hx Hypercholesterolemia: Yes Hx Hypertension: Yes - PULMONARY Hx Asthma: Yes Hx Chronic Obstructive Pulmonary Disease (COPD): Yes - NEUROLOGICAL HX Cerebrovascular Accident: Yes (2 years ago with left sided weakness) - HEENT Hx HEENT Problems: Yes Other/Comment: Wears Eyeglasses - RENAL Hx Chronic Kidney Disease: Yes - ENDOCRINE/METABOLIC Hx Diabetes Mellitus Type 1: Yes Hx Hyperthyroidism: No - HEMATOLOGICAL/ONCOLOGICAL Hx Anemia: Yes - INTEGUMENTARY Hx Dermatological Problems: No - MUSCULOSKELETAL/RHEUMATOLOGICAL Hx Musculoskeletal Disorders: Yes Hx Back Pain: Yes Hx Falls: No - GASTROINTESTINAL Hx Gastritis: Yes - GENITOURINARY/GYNECOLOGICAL Hx Genitourinary Disorders: No - PSYCHIATRIC Hx Depression: Yes Hx Substance Use: No - SURGICAL HISTORY Hx Surgeries: Yes Hx Section: Yes Other/Comment: Insertion Of HD Cath on the R Internal Jugular; left forearm graft for dialysis. left upper arm av shunt. cyst removed "my behind" as per patient - ANESTHESIA Hx Anesthesia: Yes Hx Anesthesia Reactions: No Hx Malignant Hyperthermia: No Meds Allergies/Adverse Reactions: Allergies Allergy/AdvReac Type Severity Reaction Status Date / Time piperacillin [From Zosyn] Allergy Mild ITCHING Verified 02/17/19 16:33 tazobactam [From Zosyn] Allergy Mild ITCHING Verified 02/17/19 16:33 Results - Vital Signs Recent Vital Signs: Last Vital Signs Temp 97.9 F 02/17/19 16:30 Pulse 97 H 02/17/19 16:30 Resp 18 02/17/19 16:30 BP 183/109 H 02/17/19 16:30 Pulse Ox 95 02/17/19 19:16 - Labs Result Diagrams: 02/17/19 17:48 02/17/19 17:48 Labs: Laboratory Results - last 24 hr 02/17/19 02/17/19 02/17/19 17:48 17:48 17:48 WBC 5.9 RBC 3.68 L Hgb 10.1 L D Hct 31.4 L MCV 85.4 MCH 27.5 MCHC 32.2 L RDW 19.7 H Plt Count 160 MPV 9.1 Neut % (Auto) 44.8 L Lymph % (Auto) 29.8 [place] % (Auto) 14.9 H Eos % (Auto) 9.5 H Baso % (Auto) 1.0 Neut # (Auto) 2.6 Lymph # (Auto) 1.8 [place] # (Auto) 0.9 H Eos # (Auto) 0.6 Baso # (Auto) 0.1 PT 13.4 H INR 1.2 APTT 40 H Sodium 135 Potassium 4.5 Chloride 91 L Carbon Dioxide 31 H Anion Gap 17 BUN 56 H Creatinine 6.1 H Est GFR ( Amer) 9 Est GFR (Non-Af Amer) 8 Random Glucose 336 H Calcium 9.7 Total Bilirubin 1.2 AST 73 H ALT 37 Alkaline Phosphatase 678 H D Total Protein 10.3 H Albumin 5.0 D Globulin 5.3 H Albumin/Globulin Ratio 0.9 L
[2019-02-17] MEDS ORDERED: (Novolog) Insulin Aspart, Recombinant 100 u/ml 10 ml vial SC ONE (22:00)
[2019-02-17] MEDS ORDERED: (Novolog) Insulin Aspart, Recombinant 100 u/ml 10 ml vial SC SCH (22:00)
[2019-02-17] MEDS ORDERED: (Lantus) Insulin Glargine, Recombinant SC STA (23:17)
--- NOTE | 2019-02-18 06:29 | CON ---
DATE: 02/17/2019 ENDOCRINOLOGY CONSULTATION LOCATION: Room 360 . HISTORY OF PRESENT ILLNESS: This is a 43-year-old female with known history of type 1 insulin-dependent diabetes, presenting here with recurrent epistaxis and is now being referred for diabetic evaluation because of marked hyperglycemic accelerations as noted thereof. PAST MEDICAL HISTORY: As mentioned above, history of type 1 insulin-dependent diabetes, using Toujeo at 30 units once daily in the morning. No recent home glucose monitoring levels are available at this time nor has she been on any kind of short-acting insulin therapy. History of hypertension and dyslipidemia. History of diabetic retinopathy, polyneuropathy and nephropathy with end-stage renal disease and dialysis dependence. History of cerebrovascular disease, occurred about two years ago with residual mild left-sided weakness. History of coronary artery disease and peripheral arterial disease and vasculopathy. History of generalized anxiety and depression, on psychotropic medications. History of osteoarthritis and persistent lower back pain. History of COPD and also previous admissions for congestive heart failure. She also has chronic bronchial asthma as noted. History of chronic anemia, related to her underlying end-stage renal disease. History of chronic gastritis with dyspepsia as noted. FAMILY HISTORY: Positive for diabetes and hypertension. SOCIAL HISTORY: The patient has a supportive family. No known substance use. REVIEW OF SYSTEMS: Admits to episodic bouts of dizziness and lightheadedness, worse on the day of admission with bifrontal headaches and recent visual blurring. Also admits to suboptimal energy level with easy fatigability and tiredness. No chest pains or palpitations, but admits to episodic shortness of breath especially on exertion. Her oral intake has been variable with persistent nausea and dyspepsia as noted. Also admits to lower extremity painful paresthesias especially nocturnally. PHYSICAL EXAMINATION: GENERAL: This is an average-built female, in no apparent distress. VITAL SIGNS: With a blood pressure of 170/100, pulse of 80 beats per minute and regular, temperature 99, respirations 20. Height is 5 feet 6 inches. Weight is 147 pounds. HEENT: Head: Normocephalic. Eyes: Anicteric with pink conjunctivae. Funduscopy is not possible at this time. Ears, nose, and throat are otherwise normal. NECK: Supple. Thyroid gland is normal in size. No carotid bruits or cervical adenopathy. CARDIOPULMONARY: Some adynamic precordium. S1 and S2 are rapid and regular. LUNGS: Clear to auscultation. ABDOMEN: Flat, soft with positive bowel sounds. EXTREMITIES: No peripheral edema. Pulses are +2 bilaterally. LABORATORY DATA: Chemistry showed a BUN of 56, sodium 135, potassium 4.5, chloride 91, CO2 of 31, glucose 336, creatinine is 6.1. Her random glucose at bedtime tonight is 413 mg/dL. Alkaline phosphatase is 678, total protein of 10.3, AST is 73, ALT is 37. ASSESSMENT: This is a 43-year-old female with uncontrolled and decompensated type 1 insulin-dependent diabetes with marked hyperglycemic accelerations, presenting here with recurrent epistaxis. The etiology of which has to be ascertained. She denies use of any antiplatelet medications as noted. She also has diabetic microvascular complications of retinopathy, polyneuropathy, and nephropathy with end-stage renal disease and dialysis dependence. Moreover, she also has diabetic macrovascular complications of cerebrovascular disease with residual left hemiparesis and coronary artery disease and peripheral vasculopathy as noted. PLAN OF MANAGEMENT: We will modify her current insulin regimen and switch over her morning long-acting insulin to bedtime insulin with Lantus to be given at a dose of 20 units stat tonight, and by tomorrow we will titrate to Lantus given as 30 units subcu at bedtime daily as ordered. We will add prandial insulin with Novolog given as 8 units t.i.d. before meals to start tomorrow morning as ordered. We will also modify the coverage scale to a very low-dose algorithm using Novolog insulin to obviate hypoglycemia, and detailed orders have been given. A hemoglobin A1c will be done to confirm a prior glycemic control, and baseline thyrotoxin studies will be ordered. We will also obtain a parathyroid hormone level to screen for any underlying secondary hyperparathyroidism. A GGT level will be obtained to ascertain the etiology of the elevated alkaline phosphatase levels and may actually need further workup thereof. We will obtain serial chemistries and supplement accordingly as needed. We will also add a lipid panel and TSH level as ordered to rule out any underlying autoimmune endocrinopathy especially she is a type 1 diabetic. We will reinforce diabetic education and dietary instructions also at the time of this admission. We will follow. Judith Hooks MD [facility] # [id number]
[2019-02-18] MEDS: (Novolog) Insulin Aspart, Recombinant 100 u/ml 10 ml vial SC SCH ×8 (07:26→21:47)
[2019-02-18 07:40] LABS: ALB/GLOB RATIO 0.9 (1.0-2.1); ALBUMIN 4.1 g/dL (3.5-5.0); CALCIUM 9.3 mg/dl (8.6-10.4)
--- NOTE | 2019-02-18 07:40 | CP.PCM.PN ---
Subjective - Date & Time of Evaluation Date of Evaluation: 02/18/19 Time of Evaluation: 07:39 - Subjective Subjective: Endocrinology progress note for Dr. Hooks Patient seen and examined at bedside. No acute distress. overnight patient had elevated blood pressure requiring additional clonidine to be given. Patient denies chest pain, abd pain, sob, n/v, diarrhea. Patient denies active bleeding. Objective - Vital Signs/Intake and Output Vital Signs (last 24 hours): Temp Pulse Resp BP Pulse Ox 97.5 F L 89 20 149/76 99 02/18/19 00:00 02/18/19 00:00 02/18/19 00:00 02/18/19 00:00 02/18/19 00:00 Intake and Output: 02/18/19 02/18/19 06:59 18:59 Intake Total 300 Balance 300 - Medications Medications: Current Medications Amlodipine Besylate (Norvasc) 10 mg PO DAILY [facility] Clonidine HCl (Catapres) 0.1 mg PO DAILY [facility] Insulin Aspart (Novolog) 8 unit SC AC [facility] Last Admin: 02/18/19 07:32 Dose: 8 units Insulin Aspart (Novolog) 0 unit SC ACHS [facility] Last Admin: 02/18/19 07:26 Dose: Not Given Insulin Glargine (Lantus) 30 unit SC HS [facility] Losartan Potassium (Cozaar) 100 mg PO DAILY [facility] Metoclopramide HCl (Reglan) 10 mg IVP ACHS [facility] Last Admin: 02/18/19 07:32 Dose: Not Given Rosuvastatin Calcium (Crestor) 10 mg PO HS [facility] Last Admin: 02/17/19 22:00 Dose: 10 mg Sevelamer Carbonate (Renvela) 800 mg PO TID [facility] - Labs Labs: 02/17/19 17:48 PT 13.4 SECONDS (9.7-12.2) H 02/17/19 17:48 INR 1.2 02/17/19 17:48 APTT 40 SECONDS (21-34) H 02/17/19 17:48 - Constitutional Appears: No Acute Distress - Head Exam Head Exam: ATRAUMATIC, NORMAL INSPECTION, NORMOCEPHALIC - Eye Exam Eye Exam: EOMI, Normal appearance - ENT Exam ENT Exam: Mucous Membranes Moist - Respiratory Exam Respiratory Exam: Clear to Ausculation Bilateral, NORMAL BREATHING PATTERN. absent: Decreased Breath Sounds, Rales, Rhonchi, Wheezes - Cardiovascular Exam Cardiovascular Exam: Tachycardia, REGULAR RHYTHM, +S1, +S2. absent: Diastolic murmur, Irregular Rhythm, Murmur - GI/Abdominal Exam GI & Abdominal Exam: Soft, Normal Bowel Sounds. absent: Firm, Guarding, Rigid, Tenderness - Extremities Exam Extremities Exam: Full ROM. absent: Calf Tenderness - Neurological Exam Neurological Exam: Alert, Oriented x3 Assessment and Plan - Assessment and Plan (Free Text) Assessment: 43 yo female with PMH of type 1 diabetes, HTN, hyperlipidemia, diabetic neuropathy, ESRD on hemodialysis (M,W,F), history of CVA, PAD, anxiety, depression, COPD and CHF presented for recurrent epistaxis. Endocrinology was consulted for uncontrolled blood glucose. Patient's blood work, imaging and chart was reviewed. Patient last blood glucose was 170. SHe was given 20 units lantus last night. Currently she is on lantus 30 units starting tonight, novolog 8 units AC. Hgba1 and tsh are pending. Patient also has elevated levels of alkaline phosphatase, PHT and GGT are pending. Case discussed and reviewed with Dr. Hooks
[2019-02-18] MEDS ORDERED: (Lantus) Insulin Glargine, Recombinant SC SCH ×3 (10:00→22:00)
--- NOTE | 2019-02-18 13:13 | CP.PCM.CON ---
History of Present Illness - History of Present Illness History of Present Illness: 43 y/o AA female on dialysis x several years presents with epistaxis Likel with excesss heparin at dialysis Often HTN poorly controlled PMH: ESRD DM 2 DIABETIC NEPHRI]OPATHY HTN PSH: AV FISTULA Review of Systems - Constitutional Constitutional: Fatigue, Lethargy - EENT Eyes: absent: As Per HPI, Blind Spots, Blurred Vision, Change in Vision, Decreased Night Vision, Diplopia, Discharge, Dry Eye, Exophthalmos, Floaters, Irritation, Itchy Eyes, Loss of Peripheral Vision, Pain, Photophobia, Requires Corrective Lenses, Sees Flashes, Spots in Vision, Tunnel Vision, Other Visual Disturbances, Loss of Vision, Other Ears: absent: As Per HPI, Decreased Hearing, Ear Discharge, Ear Pain, Tinnitus, Abnormal Hearing, Disequilibrium, Dizziness, Other Nose/Mouth/Throat: As Per HPI, Epistaxis - Cardiovascular Cardiovascular: Dyspnea on Exertion, Palpitations - Respiratory Respiratory: Dyspnea on Exertion - Gastrointestinal Gastrointestinal: Constipation - Genitourinary Genitourinary: As Per HPI - Musculoskeletal Musculoskeletal: Muscle Cramps, Muscle Weakness, Myalgias Past Patient History - Infectious Disease Hx of Infectious Diseases: None - Past Medical History & Family History Past Medical History?: Yes Past Family History: Reviewed and not pertinent - Past Social History Smoking Status: Never Smoked Chewing Tobacco Use: No Cigar Use: No Alcohol: None Drugs: Denies Home Situation {Lives}: With Family - CARDIAC Hx Congestive Heart Failure: Yes Hx Hypercholesterolemia: Yes Hx Hypertension: Yes - PULMONARY Hx Asthma: Yes Hx Chronic Obstructive Pulmonary Disease (COPD): Yes - NEUROLOGICAL HX Cerebrovascular Accident: Yes (2 years ago with left sided weakness) - HEENT Hx HEENT Problems: Yes Other/Comment: Wears Eyeglasses - RENAL Hx Chronic Kidney Disease: Yes - ENDOCRINE/METABOLIC Hx Diabetes Mellitus Type 1: Yes Hx Hyperthyroidism: No - HEMATOLOGICAL/ONCOLOGICAL Hx Anemia: Yes - INTEGUMENTARY Hx Dermatological Problems: No - MUSCULOSKELETAL/RHEUMATOLOGICAL Hx Falls: No - GASTROINTESTINAL Hx Gastritis: Yes - GENITOURINARY/GYNECOLOGICAL Hx Genitourinary Disorders: No - PSYCHIATRIC Hx Depression: Yes Hx Substance Use: No - SURGICAL HISTORY Hx Surgeries: Yes Hx Section: Yes Other/Comment: Insertion Of HD Cath on the R Internal Jugular; left forearm graft for dialysis. left upper arm av shunt. cyst removed "my behind" as per patient - ANESTHESIA Hx Anesthesia: Yes Hx Anesthesia Reactions: No Hx Malignant Hyperthermia: No Meds Allergies/Adverse Reactions: Allergies Allergy/AdvReac Type Severity Reaction Status Date / Time piperacillin [From Zosyn] Allergy Mild ITCHING Verified 02/17/19 16:33 tazobactam [From Zosyn] Allergy Mild ITCHING Verified 02/17/19 16:33 - Medications Medications: Current Medications Amlodipine Besylate (Norvasc) 10 mg PO DAILY [facility] Last Admin: 02/18/19 09:45 Dose: Not Given Clonidine HCl (Catapres) 0.1 mg PO DAILY [facility] Last Admin: 02/18/19 09:44 Dose: Not Given Insulin Aspart (Novolog) 0 unit SC ACHS [facility] Last Admin: 02/18/19 11:21 Dose: Not Given Insulin Aspart (Novolog) 4 unit SC AC [facility] Last Admin: 02/18/19 12:42 Dose: Not Given Insulin Glargine (Lantus) 20 unit SC [facility] Losartan Potassium (Cozaar) 100 mg PO DAILY [facility] Last Admin: 02/18/19 09:44 Dose: Not Given Metoclopramide HCl (Reglan) 10 mg IVP [facility] Last Admin: 02/18/19 11:22 Dose: Not Given Rosuvastatin Calcium (Crestor) 10 mg PO [facility] Last Admin: 02/17/19 22:00 Dose: 10 mg Sevelamer Carbonate (Renvela) 800 mg PO TID [facility] Last Admin: 02/18/19 09:47 Dose: 800 mg Physical Exam - Constitutional Appears: No Acute Distress, Chronically Ill - Head Exam Head Exam: ATRAUMATIC, NORMAL INSPECTION - Eye Exam Eye Exam: EOMI, Normal appearance - Neck Exam Neck exam: Positive for: Normal Inspection. Negative for: Tenderness - Respiratory Exam Respiratory Exam: Clear to Auscultation Bilateral, NORMAL BREATHING PATTERN - Cardiovascular Exam Cardiovascular Exam: REGULAR RHYTHM, +S1 - GI/Abdominal Exam GI & Abdominal Exam: Soft. absent: Tenderness - Extremities Exam Extremities exam: Positive for: normal inspection. Negative for: tenderness - Neurological Exam Neurological exam: Alert, CN II-XII Intact - Skin Skin Exam: Dry, Warm Results - Vital Signs Recent Vital Signs: Last Vital Signs Temp 97.5 F L 02/18/19 07:40 Pulse 91 H 02/18/19 07:40 Resp 20 04/03/19 07:40 BP 151/84 H 02/18/19 07:40 Pulse Ox 100 02/18/19 07:40 - Labs Result Diagrams: 02/17/19 17:48 02/18/19 06:30 Labs: Laboratory Results - last 24 hr 02/17/19 02/17/19 02/17/19 17:48 17:48 17:48 WBC 5.9 RBC 3.68 L Hgb 10.1 L D Hct 31.4 L MCV 85.4 MCH 27.5 MCHC 32.2 L RDW 19.7 H Plt Count 160 MPV 9.1 Neut % (Auto) 44.8 L Lymph % (Auto) 29.8 [facility] % (Auto) 14.9 H Eos % (Auto) 9.5 H Baso % (Auto) 1.0 Neut # (Auto) 2.6 Lymph # (Auto) 1.8 [facility] # (Auto) 0.9 H Eos # (Auto) 0.6 Baso # (Auto) 0.1 PT 13.4 H INR 1.2 APTT 40 H Sodium 135 Potassium 4.5 Chloride 91 L Carbon Dioxide 31 H Anion Gap 17 BUN 56 H Creatinine 6.1 H Est GFR ( Amer) 9 Est GFR (Non-Af Amer) 8 POC Glucose (mg/dL) Random Glucose 336 H Hemoglobin A1c Calcium 9.7 Phosphorus Magnesium Total Bilirubin 1.2 AST 73 H ALT 37 Alkaline Phosphatase 678 H D Total Protein 10.3 H Albumin 5.0 D Globulin 5.3 H Albumin/Globulin Ratio 0.9 L Triglycerides Cholesterol LDL Cholesterol Direct HDL Cholesterol TSH 3rd Generation 02/17/19 02/18/19 02/18/19 21:11 02:31 06:30 WBC RBC Hgb Hct MCV MCH MCHC RDW Plt Count MPV Neut % (Auto) Lymph % (Auto) [facility] % (Auto) Eos % (Auto) Baso % (Auto) Neut # (Auto) Lymph # (Auto) [facility] # (Auto) Eos # (Auto) Baso # (Auto) PT INR APTT Sodium 135 Potassium 4.2 Chloride 91 L Carbon Dioxide 33 H Anion Gap 16 BUN 61 H Creatinine 7.1 H Est GFR ( Amer) 8 Est GFR (Non-Af Amer) 6 POC Glucose (mg/dL) 413 H* 170 H Random Glucose 152 H D Hemoglobin A1c Calcium 9.3 Phosphorus 6.6 H Magnesium 2.2 Total Bilirubin 0.9 AST 57 H D ALT 25 Alkaline Phosphatase 551 H Total Protein 8.7 H Albumin 4.1 Globulin 4.6 H Albumin/Globulin Ratio 0.9 L Triglycerides 25 D Cholesterol 140 LDL Cholesterol Direct 58 HDL Cholesterol 58 TSH 3rd Generation 2.61 02/18/19 02/18/19 02/18/19 06:30 07:22 11:08 WBC RBC Hgb Hct MCV MCH MCHC RDW Plt Count MPV Neut % (Auto) Lymph % (Auto) [facility] % (Auto) Eos % (Auto) Baso % (Auto) Neut # (Auto) Lymph # (Auto) [facility] # (Auto) Eos # (Auto) Baso # (Auto) PT INR APTT Sodium Potassium Chloride Carbon Dioxide Anion Gap BUN Creatinine Est GFR ( Amer) Est GFR (Non-Af Amer) POC Glucose (mg/dL) 150 H 65 Random Glucose Hemoglobin A1c 8.1 H Calcium Phosphorus Magnesium Total Bilirubin AST ALT Alkaline Phosphatase Total Protein Albumin Globulin Albumin/Globulin Ratio Triglycerides Cholesterol LDL Cholesterol Direct HDL Cholesterol TSH 3rd Generation 02/18/19 02/18/19 11:10 11:32 WBC RBC Hgb Hct MCV MCH MCHC RDW Plt Count MPV Neut % (Auto) Lymph % (Auto) [facility] % (Auto) Eos % (Auto) Baso % (Auto) Neut # (Auto) Lymph # (Auto) [facility] # (Auto) Eos # (Auto) Baso # (Auto) PT INR APTT Sodium Potassium Chloride Carbon Dioxide Anion Gap BUN Creatinine Est GFR ( Amer) Est GFR (Non-Af Amer) POC Glucose (mg/dL) 65 75 Random Glucose Hemoglobin A1c Calcium Phosphorus Magnesium Total Bilirubin AST ALT Alkaline Phosphatase Total Protein Albumin Globulin Albumin/Globulin Ratio Triglycerides Cholesterol LDL Cholesterol Direct HDL Cholesterol TSH 3rd Generation Assessment & Plan (1) Type 2 diabetes mellitus with diabetic nephropathy Status: Acute (2) Hypertensive chronic kidney disease with stage 5 chronic kidney disease or end stage renal disease Status: Acute (3) ESRD (end stage renal disease) on dialysis Status: Acute (4) ESRD (end stage renal disease) Status: Acute (5) Epistaxis Status: Acute - Assessment and Plan (Free Text) Plan: RX EPISTAXIS PER MEDICINE dialysis MWF check Hg
--- NOTE | 2019-02-18 13:19 | CP.PCM.PN ---
Subjective - Date & Time of Evaluation Date of Evaluation: 02/18/19 Time of Evaluation: 13:19 Objective - Vital Signs/Intake and Output Vital Signs (last 24 hours): Temp Pulse Resp BP Pulse Ox 97.5 F L 91 H 20 151/84 H 100 02/18/19 07:40 02/18/19 07:40 02/18/19 07:40 02/18/19 07:40 02/18/19 07:40 Intake and Output: 02/18/19 02/18/19 06:59 18:59 Intake Total 300 Balance 300 - Medications Medications: Current Medications Amlodipine Besylate (Norvasc) 10 mg PO DAILY [facility] Last Admin: 02/18/19 09:45 Dose: Not Given Clonidine HCl (Catapres) 0.1 mg PO DAILY [facility] Last Admin: 02/18/19 09:44 Dose: Not Given Insulin Aspart (Novolog) 0 unit SC ACHS [facility] Last Admin: 02/18/19 11:21 Dose: Not Given Insulin Aspart (Novolog) 4 unit SC AC [facility] Last Admin: 02/18/19 12:42 Dose: Not Given Insulin Glargine (Lantus) 20 unit SC HS [facility] Losartan Potassium (Cozaar) 100 mg PO DAILY [facility] Last Admin: 02/18/19 09:44 Dose: Not Given Metoclopramide HCl (Reglan) 10 mg IVP ACHS [facility] Last Admin: 02/18/19 11:22 Dose: Not Given Rosuvastatin Calcium (Crestor) 10 mg PO HS [facility] Last Admin: 02/17/19 22:00 Dose: 10 mg Sevelamer Carbonate (Renvela) 800 mg PO TID [facility] Last Admin: 02/18/19 13:14 Dose: Not Given - Labs Labs: 02/17/19 17:48 02/18/19 06:30 PT 13.4 SECONDS (9.7-12.2) H 02/17/19 17:48 INR 1.2 02/17/19 17:48 APTT 40 SECONDS (21-34) H 02/17/19 17:48
--- NOTE | 2019-02-18 14:30 | PN ---
DATE: 02/18/2019 ENDOCRINOLOGY FOLLOWUP NOTE LOCATION: Room 360, [address] [place]. SUBJECTIVE: This is a 43-year-old female with recent uncontrolled type 1 insulin-dependent diabetes, presenting here with recurrent epistaxis and supervening accelerated hypertension and is now being followed closely for metabolic management. Her oral intake has been quite variable, as per the nursing staff as noted today with low normal glycemic levels observed today with glucose level from 65 to 75 mg/dL. Her fasting glucose was 150 as noted. LABORATORY DATA: Her chemistry showed a BUN of 61, sodium 135, potassium 4.2, chloride 91, CO2 of 33, glucose 152, and creatinine 7.1. Her A1c is reported as 8.1%, which is actually near optimal in terms of her outpatient metabolic control as noted. ASSESSMENT: This is a 43-year-old female with uncontrolled and decompensated type 1 insulin-dependent diabetes, presenting here with recurrent epistaxis and associated marked hyperglycemic accelerations as noted thereof. She actually also has diabetic microvascular complications of retinopathy, polyneuropathy, and nephropathy with endstage renal disease and dialysis dependence. She has diabetic macrovascular complications with cerebrovascular disease with residual left-sided hemiparesis with coronary artery disease and peripheral arterial disease and vasculopathy. PLAN OF MANAGEMENT: Because of the variability of the oral intake at this time, we will modify her current basal and bolus insulin regimen to a much lower dosing adjustment as indicated. We will lower her Humalog to 4 units t.i.d. before meals as ordered. We will also continue the low-dose correction scale using NovoLog insulin to obviate hypoglycemia and detailed orders have been given. Moreover, we will lower her basal insulin to Lantus given as 20 units subcu at bedtime daily as given . We will obtain serial chemistries and supplement accordingly as needed. We will follow. Judith Hooks MD
--- NOTE | 2019-02-18 23:08 | CON ---
DATE: 02/18/2019 REASON FOR CONSULTATION: Epistaxis, left. REQUESTING PHYSICIAN: Bertha Walker MD HISTORY OF PRESENT ILLNESS: This is a 43-year-old female who had epistaxis last night which is mild to moderate in intensity on the left and no nasal pain. No throat pain. No hearing loss. PAST MEDICAL HISTORY: As noted in the chart by me. MEDICATIONS: As noted in the chart by me. PHYSICAL EXAMINATION: HEAD: Atraumatic and normocephalic. FACE: Good facial movements bilaterally. CONSTITUTIONAL: Well fed, well nourished. COMMUNICATION: Communicates well and appropriately. EXTERNAL NOSE AND EARS: No masses, no lesions, no erythema, no edema. INTERNAL NOSE: Deviated septum. Pack is on the left. No epistasis. No masses, no lesions, no erythema, no edema on the right. The left cannot be visualized secondary to pack. ORAL CAVITY AND OROPHARYNX: No bloody postnasal drip. No masses. No lesions. No erythema. No edema. LIPS AND GUMS: No masses. No lesions. No erythema. No edema. NECK: Supple. THYROID: No thyromegaly. No goiter. LYMPH NODES: No lymphadenopathy of the neck. ASSESSMENT: 1. Epistaxis, controlled with pack. 2. Deviated septum. PLAN: The patient can be discharged home on antibiotics. Follow up as an outpatient on Saturday in order to have the pack removed. If the patient is cleared on Saturday, we will remove the pack of the patient as inpatient. Alli Leiva MD
[2019-02-19 01:12] VITALS: RESP 20
[2019-02-19 07:06] LABS: BASO # 0.1 K/uL (0.0-0.2); BASO % 0.7 % (0.0-2.0); EOS # 0.6 K/uL (0.0-0.7); EOS % 9.3 % (0.0-4.0); HEMOGLOBIN 9.6 g/dL (11.0-16.0); LYMPH # 1.5 K/uL (1.0-4.3); LYMPH % 21.5 % (20.0-40.0); MEAN CELL VOLUME 86.3 fL (81.0-99.0); MEAN CORPUSCULAR HEMOGLOBIN 28.5 pg (27.0-31.0); MEAN PLATELET VOLUME 9.1 fL (7.2-11.7); NEUT # 3.7 K/uL (1.8-7.0); NEUT % 53.5 % (50.0-75.0); NRBC % 0.1 % (0.0-2.0); RBC 3.38 Mil/uL (3.80-5.20); RED CELL DISTRIBUTION WIDTH 19.4 % (11.5-14.5); WHITE BLOOD COUNT 6.9 K/uL (4.8-10.8)
[2019-02-19 07:24] LABS: ALB/GLOB RATIO 0.8 (1.0-2.1); CALCIUM 9.5 mg/dl (8.6-10.4)
[2019-02-19] MEDS: (Novolog) Insulin Aspart, Recombinant 100 u/ml 10 ml vial SC SCH ×4 (07:36→11:55)
[2019-02-19 08:02] VITALS: BP 168/94; PULSE 96; TEMP 97.8
--- NOTE | 2019-02-19 10:35 | CP.PCM.PN ---
Subjective - Date & Time of Evaluation Date of Evaluation: 02/19/19 Time of Evaluation: 10:31 - Subjective Subjective: stable dialysis 4/3 HTN stoill poorly controlled no more epistaxis; nares tube in place no other complaint general malaise noted Objective - Vital Signs/Intake and Output Vital Signs (last 24 hours): Temp Pulse Resp BP Pulse Ox 97.8 F 96 H 20 168/94 H 98 02/19/19 07:58 02/19/19 07:58 02/19/19 07:58 02/19/19 07:58 02/19/19 07:58 Intake and Output: 02/19/19 02/19/19 06:59 18:59 Intake Total 200 Balance 200 - Medications Medications: Current Medications Amlodipine Besylate (Norvasc) 10 mg PO DAILY [facility] Last Admin: 02/19/19 09:52 Dose: 10 mg Clonidine HCl (Catapres) 0.1 mg PO DAILY [facility] Last Admin: 02/19/19 09:52 Dose: 0.1 mg Insulin Aspart (Novolog) 0 unit SC ACHS [facility] Last Admin: 02/19/19 07:36 Dose: Not Given Insulin Aspart (Novolog) 6 unit SC AC [facility] Last Admin: 02/19/19 07:46 Dose: 6 units Insulin Glargine (Lantus) 20 unit SC HS [facility] Last Admin: 02/18/19 21:48 Dose: 20 units Losartan Potassium (Cozaar) 100 mg PO DAILY [facility] Last Admin: 02/19/19 09:52 Dose: 100 mg Metoclopramide HCl (Reglan) 10 mg IVP ACHS [facility] Last Admin: 02/19/19 07:00 Dose: 10 mg Rosuvastatin Calcium (Crestor) 10 mg PO HS [facility] Last Admin: 02/18/19 21:46 Dose: 10 mg Sevelamer Carbonate (Renvela) 800 mg PO TID [facility] Last Admin: 02/19/19 09:52 Dose: 800 mg - Labs Labs: 02/19/19 06:57 02/19/19 06:57 PT 13.4 SECONDS (9.7-12.2) H 02/17/19 17:48 INR 1.2 02/17/19 17:48 APTT 40 SECONDS (21-34) H 02/17/19 17:48 - Constitutional Appears: No Acute Distress, Chronically Ill - Head Exam Head Exam: ATRAUMATIC, NORMAL INSPECTION - Eye Exam Eye Exam: EOMI, Normal appearance - Neck Exam Neck Exam: Normal Inspection. absent: Tenderness - Respiratory Exam Respiratory Exam: Clear to Ausculation Bilateral, NORMAL BREATHING PATTERN - Cardiovascular Exam Cardiovascular Exam: REGULAR RHYTHM, +S1 - GI/Abdominal Exam GI & Abdominal Exam: Soft. absent: Tenderness - Extremities Exam Extremities Exam: Normal Inspection. absent: Tenderness - Neurological Exam Neurological Exam: Awake, CN II-XII Intact - Skin Skin Exam: Dry, Warm Assessment and Plan (1) Type 2 diabetes mellitus with diabetic nephropathy Status: Acute (2) Hypertensive chronic kidney disease with stage 5 chronic kidney disease or end stage renal disease Status: Acute (3) ESRD (end stage renal disease) on dialysis Status: Acute (4) Epistaxis Status: Acute - Assessment and Plan (Free Text) Plan: add EPO Dialysis MWF, same UF rate adjust BP meds monitor for epistaxis
[2019-02-19 11:50] VITALS: O2SAT 95
--- NOTE | 2019-02-19 15:04 | PCM.HF ---
Heart Failure Core Measure - Heart Failure Ejection Fraction: 40 % or Greater (EF within normal range) TUYET Inhibitor Prescribed: No Contraindication/Reason for not providing: ESRD Beta-Sascha Prescribed: None Contraindication/Reason for not providing: COPD Angiotensin II Receptor Sascha Prescribed: No Contraindication/Reason for not providing: ESRD AnticoagulationTherapy for Atrial Fibrillation/Atrialflutter: No Contraindication/Reason for not providing: bleeding Aldosterone Antagonist Prescribed: Yes Hydralazine Nitrate Prescribed: No Contraindication/Reason for not providing: EF >40% Implantable Cardioverter Defibrillator Therapy: No Contraindication/Reason for not providing: EF >40% Cardiac Resynchronization Therapy Prescribed: No Contraindication/Reason for not providing: not indicated - Follow up Will be discharged to: Home Follow Up Date (must be within 7 days from discharge): 02/23/19 Follow Up Time: 10:00
--- NOTE | 2019-02-19 15:13 | CP.PCM.PN ---
Subjective - Date & Time of Evaluation Date of Evaluation: 02/19/19 Time of Evaluation: 15:13 - Subjective Subjective: alert,oriented, no active bleeding , acute pain or distress. Objective - Vital Signs/Intake and Output Vital Signs (last 24 hours): Temp Pulse Resp BP Pulse Ox 97.8 F 96 H 20 168/94 H 95 02/19/19 07:58 02/19/19 07:58 02/19/19 07:58 02/19/19 07:58 02/19/19 08:00 Intake and Output: 02/19/19 02/19/19 06:59 18:59 Intake Total 200 480 Balance 200 480 - Medications Medications: Current Medications Amlodipine Besylate (Norvasc) 10 mg PO DAILY [facility] Last Admin: 02/19/19 09:52 Dose: 10 mg Clonidine HCl (Catapres) 0.2 mg PO BID [facility] Epoetin Kevin (Procrit) 10,000 unit IV MWF [facility] Insulin Aspart (Novolog) 0 unit SC ACHS [facility] Last Admin: 02/19/19 11:55 Dose: Not Given Insulin Aspart (Novolog) 4 unit SC AC [facility] Insulin Glargine (Lantus) 16 unit SC HS [facility] Losartan Potassium (Cozaar) 100 mg PO DAILY [facility] Last Admin: 02/19/19 09:52 Dose: 100 mg Metoclopramide HCl (Reglan) 10 mg IVP ACHS [facility] Last Admin: 02/19/19 11:55 Dose: Not Given Rosuvastatin Calcium (Crestor) 10 mg PO HS [facility] Last Admin: 02/18/19 21:46 Dose: 10 mg Sevelamer Carbonate (Renvela) 800 mg PO TID [facility] Last Admin: 02/19/19 14:58 Dose: 800 mg - Labs Labs: 02/19/19 06:57 02/19/19 06:57 PT 13.4 SECONDS (9.7-12.2) H 02/17/19 17:48 INR 1.2 02/17/19 17:48 APTT 40 SECONDS (21-34) H 02/17/19 17:48 Assessment and Plan - Assessment and Plan (Free Text) Assessment: 43 year old female admitted with recurrent epitaxis, on HD, seen and examined. Alert and oriented x3, has nasal packing in place, no acute bleeding noted. As per DR Leiva she should follow up in his office for removal of the nasal packing. Discussed with DR Walker, plan to discharge home today on present medications. Advised to continue with present medications and follow up in the office as advised.
[2019-02-19] MEDS ORDERED: (Novolog) Insulin Aspart, Recombinant 100 u/ml 10 ml vial SC SCH (16:30)
--- NOTE | 2019-02-19 17:41 | PN ---
DATE: 02/19/2019 ENDOCRINOLOGY FOLLOWUP NOTE LOCATION: Room 360. SUBJECTIVE: This is a 43-year-old female with recent uncontrolled type 1 insulin-dependent diabetes, presenting here with marked hyperglycemic accelerations and early ketosis with supervening recurrent epistaxis and is now being followed closely for metabolic management. Her oral intake has been quite variable with suboptimal meal portions as noted and today's glucose level have dropped to 59 mg/dL and the latest one of which is 91 mg/dL. Her fasting glucose was 192 as noted this morning with an library clerk talking books 2 a.m. glucose of 333 mg/dL. LABORATORY DATA: Her chemistry showed a BUN of 35, sodium 136, potassium 4.5, chloride 94, CO2 of 31, glucose 205, and creatinine 4.5. Her alkaline phosphatase is 613 with a GGTP of 530 indicative of some kind of hepatocellular pathology ongoing at this time. ASSESSMENT: This is a 43-year-old female with uncontrolled and decompensated type 1 insulin-dependent diabetes, with marked hyperglycemic accelerations and clearly suboptimal metabolic control related to a subtherapeutic insulin regimen presenting here with recurrent epistaxis as noted thereof. However, she also has elevated liver transaminases and the possibility of an autoimmune related hepatitis B type 1 diabetic versus a metastatic malignancy has to be excluded at this time. Usually type 2 diabetics develop the so called CAVAZOS with eventual liver cirrhosis and portal hypertension but usually type I diabetics do not develop this aforementioned pathology. She also has diabetic microvascular complications of retinopathy, polyneuropathy and nephropathy with end-stage renal disease and dialysis dependence. PLAN OF MANAGEMENT: We will modify once again her basal and bolus insulin regimen with the variability of her oral intake as noted. We will lower the Novolog down to 4 units three times before meals to start today as ordered. We will also lower her overnight basal insulin with Lantus to be given as 16 units subcutaneous at bedtime daily as given. We will obtain serial chemistries and supplement accordingly as needed. We will recommend a gastrointestinal evaluation at this time as noted. We will follow. Judith Hooks MD
[2019-02-19] MEDS ORDERED: (Lantus) Insulin Glargine, Recombinant SC SCH (22:00)
[2019-02-20] MEDS ORDERED: Epoetin Alfa 10,000 unit/ml Dialysis IV SCH (09:00)
== END 2019-02-19 17:20 | disposition home or self-care (01) ==
LOC: C.ER 15:41 → C.9E 19:17 → C.3T 19:45
PROVIDERS: ADMIT Internal Medicine Critical Care Medicine; ATTEND Internal Medicine Critical Care Medicine
DX: R04.0 Epistaxis (principal); I13.2 Hypertensive heart and chronic kidney disease with heart failure and with stage 5 chronic kidney disease, or end stage renal disease; I50.9 Heart failure, unspecified; J34.2 Deviated nasal septum; J44.9 Chronic obstructive pulmonary disease, unspecified; N18.6 End stage renal disease; Z79.4 Long term (current) use of insulin; Z86.73 Personal history of transient ischemic attack (TIA), and cerebral infarction without residual deficits; Z99.2 Dependence on renal dialysis; I25.10 Atherosclerotic heart disease of native coronary artery without angina pectoris; E78.5 Hyperlipidemia, unspecified; F41.1 Generalized anxiety disorder; E10.22 Type 1 diabetes mellitus with diabetic chronic kidney disease; D64.9 Anemia, unspecified
CPT/HCPCS: 36415; 80053; 80061; 82948; 82977; 83036; 83735; 83970; 84100; 84443; 85025; 85610; 85730; 97116; 97162; 97166; 97530; 99284; G0257; G0378; G8978; G8979; G8987; G8988; J2597; J2765